=== PATIENT | male | born 1965 | race Caucasian/White ===

== ENCOUNTER 2017-02-15 21:49 | Emergency (ER) | payer OTHER ==
[~2017-02-15] VITALS: Ht 162.6 cm; Wt 75.1 kg
[2017-02-15 21:57] VITALS: TEMP 36.5; Ht 162.6 cm; Wt 75.1 kg
[2017-02-15 22:15] VITALS: O2SAT 98
[2017-02-15 23:02] LABS: BUN/CREATININE RATIO 4.7 (10-20); CALCIUM 8.9 mg/dl (8.5-10.1); CREATININE 1.1 mg/dl (0.60-1.40); POTASSIUM 4.4 mmol/L (3.5-5.1)
--- NOTE | 2017-02-16 03:58 | EMERGENCY ROOM VISIT NOTE ---
History First contact with patient: 22:05 Chief Complaint: ALCOHOL OVERDOSE Stated Complaint: ETOH Nursing Triage Summary: Pt intoxicated, found laying in yard on R side. EMS called. Pt wanted to refuse , but was recommended to come to hospital for further work-up. Per pt report he did not fall, he remembers everything that happened today. Pt states "I was walking and decided I wanted to sleep, so I laid down in the yard." Per EMS pt has been drinking since 9 AM. Reported breathalyzer level was 0.275 by police on scene. History of Present Illness The patient is a 51 year old male who presents to the Emergency Room with complaints of alcohol intoxication he was found on the ground passed out. Patient states he thinks he just lay down to go to sleep. Patient is an alcoholic. No history of DTs or seizures from not drinking. He drinks daily. Patient denies chest pain, dyspnea, abdominal pain, drug use or any other medical complaints. Review of Systems See HPI for pertinent positives & negatives. A total of 10 systems reviewed and were otherwise negative. Past Medical/Surgical History Alcoholism Social History Smoking Status: Never Smoker Alcohol Use: heavy Drug Use: none Current/Historical Medications No Active Prescriptions or Reported Meds Allergies Coded Allergies: No Known Allergies (Unverified , 04/25/11) Physical Exam Vital Signs Date Time Temp Pulse Resp B/P (MAP) Pulse Ox O2 Delivery O2 Flow Rate FiO2 02/16/17 02:00 77 02/16/17 01:00 72 18 99/61 93 Room Air 02/15/17 23:30 78 18 160/87 95 Room Air 02/15/17 22:15 98 Room Air 02/15/17 21:58 83 02/15/17 21:57 36.5 87 18 131/83 98 Room Air 02/15/17 21:57 98 Room Air Physical Exam PHYSICAL EXAM: VITALS: Vitals are noted on the nurse's note and reviewed by myself. Vital signs stable. GENERAL: Pleasant male with EtOH odor, in no acute distress, nondiaphoretic, well-developed well-nourished. The patient is visibly intoxicated. SKIN: The skin was without obvious lacerations, abrasions, or rashes. There is no tenting of the skin. Capillary reflex less than 2 seconds. HEENT: Normocephalic, atraumatic. PERRLA. EOMI. Conjunctiva with mild injection without icterus. Tympanic membranes without erythema or effusion bilaterally no hemotympanum. External auditory canals are clear. Nares patent bilaterally. No epistaxis. Oropharynx without erythema or exudate. Uvula midline. Oral mucosal moist. No lymphadenopathy. Neck is supple without cervical spine tenderness. HEART: Regular rate and rhythm without murmurs gallops or rubs. Peripheral pulses 2+. LUNGS: Clear to auscultation bilaterally without wheezes, rales or rhonchi. ABDOMEN: Positive bowel sounds x 4. Normal tympanic percussion. Soft, nontender, without masses or organomegaly. MUSCULOSKELETAL: Gross motor function of the upper and lower extremities intact. The patient has a staggering gait. NEUROLOGIC: The patient is visibly intoxicated. Once they were more sober they were alert and oriented to person place and time. Medical Decision & Procedures Laboratory Results 02/15/17 22:30 Test 02/15/17 22:30 Anion Gap 4.0 mmol/L (3-11) Est Creatinine Clear Calc Drug Dose 72.9 ml/min Estimated GFR () 89.0 Estimated GFR (Non- 76.8 BUN/Creatinine Ratio 4.7 (10-20) Calcium Level 8.9 mg/dl (8.5-10.1) Ethyl Alcohol mg/dL 349.0 mg/dl (0-3) ED Course Prior records/ancillary studies reviewed. Triage Nursing notes reviewed. Additional history obtained from nursing The patient's history was concerning for altered mental status and a possible alcohol overdose. Differential diagnosis: Etiologies such as alcohol intoxication, toxicologic, infection, hypoglycemia, electrolyte abnormalities, cardiac sources, intracerebral event, neurologic, as well as others were entertained. Physical examination: As above. The patient is clinically intoxicated. no trauma noted. ER treatment provided: Monitoring Aspiration precautions The patient was frequently reassessed. Diagnostic interpretation by me: Cardiac monitoring did not reveal any evidence of dysrhythmia. The labs revealed no worrisome electrolyte abnormality the patient's blood alcohol level was 349 mg/dL. Imaging studies: Negative head CT per radiology The patient's history was reviewed once they were more coherent and their intoxication cleared. The patient states they have been in good health recently and had no medical complaints. The patient admitted to consuming alcohol. No additional concerning findings were noted. The patient complained of no symptoms to suggest assault. This appears to be consistent with an overdose of alcohol and a known alcoholic. Patient does not want rehabilitation. He was counseled on alcoholism. All questions are answered. By the evaluation outlined above emergent etiologies such as trauma, infection, hypoglycemia, electrolyte abnormalities, cardiac sources, intracerebral event, neurologic,as well as others were deemed relatively unlikely. The patient was informed about the findings as listed above. The patient was counseled on the dangers of excessive alcohol use. I gave my usual and customary discussion regarding this issue. All questions were answered and the patient was pleased with the treatment. Return instructions were outlined and the patient was discharged in stable condition once their mental status improved and a safe destination was confirmed. Outpatient prescription management: None Referral: The patient was referred back to their primary care physician for follow-up in 2 to 3 days for a recheck of their current condition. Medical Decision As above Impression Primary Impression: Alcohol abuse Departure Information Dispostion Home / Self-Care Condition GOOD Prescriptions No Active Prescriptions or Reported Meds Referrals No Doctor, Assigned (PCP) Patient Instructions My [facility] Additional Instructions Keep well-hydrated. Tylenol every 6 hours as needed for pain (Maximum 3000 mg Tylenol in 24 hr period). Follow up with family doctor in 2-3 days. No driving for the next 24 hours. Recommend no alcohol for the next 48 hours and avoid binge drinking in the future. Return to ER sooner for chest pain, abdominal pain, worsening signs or symptoms or as needed.
[2017-02-16 04:19] VITALS: BP 117/77; PULSE 88; O2SAT 95
--- NOTE | 2017-02-16 07:08 | DIAGNOSTIC IMAGING REPORT ---
CT SCAN OF THE BRAIN WITHOUT IV CONTRAST CLINICAL HISTORY: Intoxication. Change in mental status. COMPARISON STUDY: CT of the brain dated 04/25/2011. TECHNIQUE: Unenhanced axial CT scan of the brain is performed from the vertex to the skull base. CT DOSE: 614.27 mGy.cm FINDINGS: Brain parenchyma: There are age advanced involutional changes noting minimal subcortical and periventricular microangiopathic change. There is no hemorrhage, mass effect, or evidence of acute territorial ischemia by CT criteria. Dunlap-white matter is preserved. No extra-axial fluid collection is seen. Ventricles, sulci, cisterns: Prominent secondary to involutional change. Intracranial vasculature: There is mild atherosclerotic calcification of the cavernous carotid and vertebral arteries. Calvarium: There is no depressed calvarial fracture. Sinuses and mastoids: Mild mucosal thickening is seen in the left maxillary antrum. The remaining visualized paranasal sinuses are clear. The mastoid air cells are well pneumatized. Orbits: The bony orbits are grossly intact. There is an banding of the left ocular globe. There are bilateral ocular lens implants. IMPRESSION: There is no hemorrhage, mass effect, or evidence of acute territorial ischemia by CT criteria. Electronically signed by: Josh Salinas M.D. 02/16/2017 7:06 AM Dictated Date/Time: 02/16/2017 7:04 AM
[2017-05-15] MEDS ORDERED: THM100 PO (14:02)
[2017-05-15] MEDS ORDERED: FLV1 PO (14:02)
[2017-05-15] MEDS ORDERED: CTP1 PO (14:02)
== END 2017-02-16 04:19 | disposition home or self-care (01) ==
LOC: EDBD 21:49 → C.EDB 21:50
DX: F10.129 Alcohol abuse with intoxication, unspecified (principal); Y90.8 Blood alcohol level of 240 mg/100 ml or more

== ENCOUNTER 2017-05-09 17:50 | Inpatient (IN) | payer OTHER ==
[~2017-05-09] VITALS: Ht 165.1 cm; Wt 73.0 kg
[2017-05-09] MEDS ORDERED: ASPI325T39 PO (18:17)
--- NOTE | 2017-05-09 18:27 | EMERGENCY ROOM VISIT NOTE ---
History Report prepared by Sue: Prabhu Devine Under the Supervision of: Hue JadeO. First contact with patient: 17:58 Chief Complaint: SEIZURE Stated Complaint: SEIZURE History of Present Illness The patient is a 51 year old male who presents to the Emergency Room with complaints of a resolved seizure that occurred prior to arrival. The patient states that he was with a friend, and they called EMS because the patient was having a seizure. He reports that he currently has a mild headache. The patient notes that the last time he consume alcohol was yesterday, and he typically drink three to four beers every other day. He states that he has a history of astigmatism. The patient reports that he did not know where he was when he woke up from his seizure. He notes that he broke his finger. The patient denies falling, trauma, vision changes, biting tongue, neck pain, back pain, chest pain , abdominal pain, recent cough, cold, and fever. EMS notes the patient was incontinent of stool and was diaphoretic. Source of History: patient, EMS Onset: prior to arrival Position: other (global) Quality: other (seizure) Timing: resolved Associated Symptoms: + headache, + diaphoresis, No fevers, No cough, No neck pain, No chest pain, No abdominal pain, No back pain Note: Associated symptoms: incontinent of stool Denies: falling, trauma, vision changes, biting tongue, cold Review of Systems See HPI for pertinent positives & negatives. A total of 10 systems reviewed and were otherwise negative. Past Medical & Surgical Medical Problems: (1) Alcohol abuse (2) Renal calculi Surgical Problems: (1) S/P lens implant Family History Patient reports no known family medical history. Social History Smoking Status: Never Smoker Alcohol Use: heavy Drug Use: none Allergies Coded Allergies: No Known Allergies (Unverified , 05/09/17) Physical Exam Vital Signs Date Time Temp Pulse Resp B/P (MAP) Pulse Ox O2 Delivery O2 Flow Rate FiO2 05/09/17 19:36 90 18 158/76 97 Room Air 05/09/17 18:24 97 Room Air 05/09/17 18:24 97 Room Air 05/09/17 18:02 36.9 106 20 159/98 96 Room Air 05/09/17 17:59 114 Physical Exam GENERAL: alert, well appearing, well nourished, no distress, non-toxic EYE EXAM: normal conjunctiva, bilateral anisocoria, conjugate gaze, no contusion to tongue, spontaneous nystagmus. OROPHARYNX: no exudate, no erythema, lips, buccal mucosa, and tongue normal and mucous membranes are moist NECK: supple, no nuchal rigidity, no adenopathy, non-tender LUNGS: Clear to auscultation. Normal chest wall mechanics HEART: no murmurs, S1 normal and S2 normal ABDOMEN: abdomen soft, non-tender, normo-active bowel sounds, no masses, no rebound or guarding. BACK: Back is symmetrical on inspection and there is no deformity, no midline tenderness, no CVA tenderness. SKIN: no rashes and no bruising UPPER EXTREMITIES: upper extremities are grossly normal. LOWER EXTREMITIES: No pitting edema. NEURO EXAM: Normal sensorium, cranial nerves II-XII grossly intact, normal speech, no gross weakness of arms, no gross weakness of legs. Medical Decision & Procedures ER Provider Diagnostic Interpretation: Radiology results have been interpreted by the radiologist and reviewed by me. HEAD WITHOUT CONTRAST (CT) CT DOSE: 1021.63 mGy.cm HISTORY: Mental status change seizure, fall TECHNIQUE: Multiaxial CT images of the head were performed without the use of intravenous contrast. A dose lowering technique was utilized adhering to the principles of ALARA. Comparison: 02/15/2017 Findings: The paranasal sinuses and mastoid air cells are clear. The calvarium and skull base are intact. The ventricles and sulci are within normal limits. There is no mass, hematoma, midline shift, or acute infarct. Possible subacute infarction in the region of the right and to lesser extent left occipital lobes. No evidence for acute intracranial hemorrhage. Impression: Potential subacute infarcts of the right and to lesser extent left occipital lobes. No acute intracranial hemorrhage. The above report was generated using voice recognition software. It may contain grammatical, syntax or spelling errors. Electronically signed by: Faisal Abebe M.D. 05/09/2017 6:47 PM Dictated Date/Time: 05/09/2017 6:44 PM CHEST ONE VIEW PORTABLE CLINICAL HISTORY: fall, seizure dyspnea COMPARISON STUDY: No previous studies for comparison. FINDINGS: The bones soft tissues and hemidiaphragms are normal. The cardiomediastinal silhouette is normal. The lungs are clear. The pulmonary vasculature is normal. IMPRESSION: Negative chest. The above report was generated using voice recognition software. It may contain grammatical, syntax or spelling errors. Electronically signed by: Faisal Abebe M.D. 05/09/2017 6:25 PM Dictated Date/Time: 05/09/2017 6:25 PM CERVICAL SPINE W/O CT DOSE: HISTORY: Trauma. Mental status change. fall TECHNIQUE: Multiaxial CT images of the cervical spine were performed and reformatted in the sagittal and coronal plane without the use of contrast. A dose lowering technique was utilized adhering to the principles of ALARA. COMPARISON: None. FINDINGS: No fractures. No subluxation. Prevertebral soft tissues and the C1-C2 interval are intact. No pneumothorax. Mild/moderate degenerative disc change C5-C7. Moderate degenerative change posterior and lateral elements. IMPRESSION: Moderate degenerative change. No acute process. The above report was generated using voice recognition software. It may contain grammatical, syntax or spelling errors. Electronically signed by: Faisal Abebe M.D. 05/09/2017 6:49 PM Dictated Date/Time: 05/09/2017 6:47 PM Laboratory Results Test 05/09/17 18:24 05/09/17 18:29 05/09/17 18:39 05/09/17 19:33 Ethyl Alcohol mg/dL < 3.0 mg/dl (0-3) Prothrombin Time 11.3 SECONDS (9.0-12.0) Prothromb Time International Ratio 1.1 (0.9-1.1) Activated Partial Thromboplast Time 26.0 SECONDS (21.0-31.0) Partial Thromboplastin Ratio 1.0 Direct Bilirubin 0.7 mg/dl (0-0.2) Ammonia 45.0 umol/L (11-32) Troponin I < 0.015 ng/ml (0-0.045) Thyroid Stimulating Hormone (TSH) 1.370 uIu/ml (0.300-4.500) Hepatitis C Antibody Screen NEG (NEG) Platelet Estimate DECREASED Red Blood Cell Morphology Unremarkable Estimated Average Glucose 103 mg/dl Hemoglobin A1c 5.2 % (4.5-5.6) Laboratory results per my review. Medications Administered Medications (Trade) Dose Ordered Sig/Ana Route Start Time Stop Time Status Last Admin Dose Admin Sodium Chloride 1,000 ml @ 999 mls/hr Q1H1M STAT IV 05/09/17 19:20 05/09/17 20:20 DC 05/09/17 19:30 999 MLS/HR Magnesium Sulfate (Magnesium Sulfate) 2 gm NOW STAT IV 05/09/17 19:21 05/09/17 19:22 DC 05/09/17 19:30 2 GM Aspirin/Aluminum/ Magnesium/Ca Carb (Ascriptin Tab) 325 mg NOW STAT PO 05/09/17 19:37 05/09/17 19:39 DC 05/09/17 20:26 325 MG Multivitamins 10 ml/Thiamine HCl 100 mg/Folic Acid 1 mg/Sodium Chloride 1,011.2 ml @ 500 mls/ hr Q2H2M ONCE IV 05/09/17 20:00 05/09/17 22:01 DC 05/09/17 20:37 500 MLS/HR ECG Indication: other (seizure) Rate (beats per minute): 97 Rhythm: normal sinus Findings: Q waves (Leads V1 and V2), no acute ischemic change, other (Normal axis and intervals) ED Course 1801: The patient was evaluated in room C01B. A complete history and physical exam was performed. 1919: Ordered Sodium Chloride 1000 ml @ 999 mls/hr IV 1920: Ordered Magnesium Sulfate 2gm IV 1934: Upon reevaluation, the patient is resting, feeling well, and watching TV. I discussed the findings and the treatment plan with the patient. He expresses agreement and understanding. 1936: Ordered Aspirin/Aluminum/Magnesium/Ca Carb 325mg PO 1947: I discussed the patient's case with Dr[facility] Nunes, [facility]. The patient will be evaluated for further treatment. Medical Decision Differential diagnosis includes etiologies such as infection, hypoglycemia, electrolyte abnormalities, cardiac sources, intracerebral event, trauma, toxicologic, neurologic, as well as others were entertained. Pt at risk for seizures due to etoh abuse, however CT showed subacute infarcts. Pt denies any prior hx. No evidence of trauma. No evidence of additional infectious etiology. Hyponatremia likely from etoh also. Mild elevation of ammonia but pt not encephalopathic. Elevated LFT's likely from Etoh also. No focal neuro deficits. Pt given ASA. Asked medicine to evaluate further. No recurrent seizures here and no evidence of acute alcohol withdrawal or DT's. Consults Time Called: 1938 Consulting Physician: Dr. Nunes [facility] Returned Call: 1947 I discussed the patient's case with Dr. Nunes [facility]. The patient will be evaluated for further treatment. Impression Primary Impression: Seizure Additional Impressions: Alcohol abuse CVA (cerebral vascular accident) Abnormal LFTs (liver function tests) Hyponatremia Scribe Attestation The scribe's documentation has been prepared under my direction and personally reviewed by me in its entirety. I confirm that the note above accurately reflects all work, treatment, procedures, and medical decision making performed by me. Departure Information Dispostion Home / Self-Care Referrals Faisal Laboy M.D. (PCP) Patient Instructions My [facility] Problem Qualifiers Additional Impressions: CVA (cerebral vascular accident) CVA mechanism: unspecified Qualified Codes: I63.9 - Cerebral infarction, unspecified
--- NOTE | 2017-05-09 18:48 | DIAGNOSTIC IMAGING REPORT ---
HEAD WITHOUT CONTRAST (CT) CT DOSE: 1021.63 mGy.cm HISTORY: Mental status change seizure, fall TECHNIQUE: Multiaxial CT images of the head were performed without the use of intravenous contrast. A dose lowering technique was utilized adhering to the principles of ALARA. Comparison: 02/15/2017 Findings: The paranasal sinuses and mastoid air cells are clear. The calvarium and skull base are intact. The ventricles and sulci are within normal limits. There is no mass, hematoma, midline shift, or acute infarct. Possible subacute infarction in the region of the right and to lesser extent left occipital lobes. No evidence for acute intracranial hemorrhage. Impression: Potential subacute infarcts of the right and to lesser extent left occipital lobes. No acute intracranial hemorrhage. The above report was generated using voice recognition software. It may contain grammatical, syntax or spelling errors. Electronically signed by: Faisal Abebe M.D. 05/09/2017 6:47 PM Dictated Date/Time: 05/09/2017 6:44 PM
--- NOTE | 2017-05-09 18:50 | DIAGNOSTIC IMAGING REPORT ---
CERVICAL SPINE W/O CT DOSE: HISTORY: Trauma. Mental status change. fall TECHNIQUE: Multiaxial CT images of the cervical spine were performed and reformatted in the sagittal and coronal plane without the use of contrast. A dose lowering technique was utilized adhering to the principles of ALARA. COMPARISON: None. FINDINGS: No fractures. No subluxation. Prevertebral soft tissues and the C1-C2 interval are intact. No pneumothorax. Mild/moderate degenerative disc change C5-C7. Moderate degenerative change posterior and lateral elements. IMPRESSION: Moderate degenerative change. No acute process. The above report was generated using voice recognition software. It may contain grammatical, syntax or spelling errors. Electronically signed by: Faisal Abebe M.D. 05/09/2017 6:49 PM Dictated Date/Time: 05/09/2017 6:47 PM
[2017-05-09 19:01] LABS: ALT/SGPT 195 U/L (12-78); BLOOD UREA NITROGEN 9 mg/dl (7-18); BUN/CREATININE RATIO 8.5 (10-20); CARBON DIOXIDE 22 mmol/L (21-32); CHLORIDE 94 mmol/L (98-107); GLUCOSE 145 mg/dl (70-99); MAGNESIUM 1.5 mg/dl (1.8-2.4); POTASSIUM 3.6 mmol/L (3.5-5.1); SODIUM 130 mmol/L (136-145)
[2017-05-09 19:05] LABS: INR 1.1 (0.9-1.1); PROTHROMBIN TIME (PATIENT) 11.3 SECONDS (9.0-12.0)
[2017-05-09 19:15] LABS: ALKALINE PHOSPHATASE 119 U/L (45-117); AST/SGOT 228 U/L (15-37); PHOSPHORUS 2.1 mg/dl (2.5-4.9)
[2017-05-09] MEDS ORDERED: SODIUM CHLORIDE 0.9% 1000ML 1,000 ML IV STA (19:20)
[2017-05-09] MEDS ORDERED: MAGNESIUM SULFATE 1GM / D5W 1 GM BAG IV STA (19:21)
[2017-05-09] MEDS ORDERED: ASPIRIN/ALUM/MAGNES/CAL CARB 325 MG TAB PO STA (19:37)
[2017-05-09] MEDS ORDERED: MULTI-VITAMIN INFUSION INJ 10 ML, THIAMINE HCL INJ 100 MG, FoLIC ACID INJ 1 MG in SODIU... IV ONE (20:00)
[2017-05-09 20:13] LABS: BASO % 0.3 %; BASO ABS # 0.02 K/uL (0-0.2); COMPLETE YES; EOS % 0.1 %; HEMATOCRIT 40.3 % (42-52); IG% 0.3 %; LYMPH % 7.2 %; LYMPH ABS # 0.52 K/uL (1.2-3.4); MEAN CELL VOLUME 90.4 fL (80-100); MEAN CORPUSCULAR HEMOGLOBIN 31.8 pg (25-34); MEAN CORPUSCULAR HGB CONC 35.2 g/dl (32-36); MEAN PLATELET VOLUME 10.9 fL (7.4-10.4); MONO % 10.8 %; NEUT % 81.3 %; PLATELET COUNT 81 K/uL (130-400); PLT ESTIMATE DECREASED; RED BLOOD COUNT 4.46 M/uL (4.7-6.1)
[2017-05-09] MEDS ORDERED: ENOXAPARIN 40 MG/0.4 ML SYR SC SCH (20:45)
[2017-05-09] MEDS ORDERED: ONDANSETRON INJ 2 MG/ML 2 ML VIAL IV PRN (20:45)
[2017-05-09] MEDS ORDERED: ACETAMINOPHEN 325 MG TAB PO PRN (20:45)
[2017-05-09] MEDS ORDERED: PHARMACIST DISCHARGE MED REC CONSULT PRN (20:45)
[2017-05-09] MEDS ORDERED: GABAPENTIN 600 MG TAB PO STA (21:28)
[2017-05-09 21:49] VITALS: BP 166/99; PULSE 103; TEMP 37; O2SAT 97; Ht 165.1 cm; Wt 73.0 kg
[2017-05-09] MEDS ORDERED: LORAZEPAM 2 MG/ML 1 ML VIAL IV PRN (22:45)
[2017-05-09] MEDS ORDERED: LORAZEPAM INJ 1 MG in SYRINGE 0.5 ML IV PRN (22:45)
--- NOTE | 2017-05-09 23:09 | History and Physical ---
History & Physical Date & Time of Service: May 09, 2017 ~ 20:15 Chief Complaint: Possible Seizure Primary Care Physician: Faisal Laboy M.D. History of Present Illness 51 year old male who presents to the ER with seizure like activity. History is limited from the patient. With the patient's permission, I spoke with his landlord, Daniel Tavares who provided some information. Daniel was not present with the patient during the seizure like activity but reported to me what was passed onto him. Patient sitting in a chair drinking a beer when his eyes rolled back in his head and his head went backwards. His whole body became stiff and his hands clenched crushing the can that was in his hand. It is unknown how long this episode lasted. EMS was called and it was reported that the patient was confused. There was no loss of bowel or bladder control. No vomiting or tongues biting. Patient reports he currently feels well with the exception of a mild frontal headache. Patient reports he only drinks a 6 pack of beer every 2 days however Daniel reported to me that intake is much higher than that. Patient reports his last drink was last night around 9pm. He denies alcohol withdrawal or seizures in the past. He reports he has been feeling well recently. No chest pain, shortness of breath, or palpitations. He denies visual changes, unilateral weakness, numbness or tingling. No slurred speech or difficulty swallowing. He denies abdominal pain, nausea, vomiting, or diarrhea. No fever or chills. He denies urinary symptoms. In the ED, patient's head CT is showing possible BL occipital lobe subacute infarcts. Labs show a mild hyponatremia, elevated LFTs, hypomagnesemia, and thrombocytopenia. Patient was given ASA, IV Mg+ replacement, and banana bag, Past Medical/Surgical History Medical Problems: (1) Alcohol abuse Status: Chronic (2) Renal calculi Status: Chronic Surgical Problems: (1) S/P lens implant Status: Chronic Family History Patient reports no known family medical history. Social History Smoking Status: Never Smoker Smokeless Tobacco Use: 1 can/week Alcohol Use: patient reports 6 pack/2 days however landlord reports his intake is much higher Housing status: lives alone Multi-Drug Resistant Organisms History of MDRO: No Allergies Coded Allergies: No Known Allergies (Unverified , 05/09/17) Review of Systems ROS per HPI, all other systems reviewed and negative Physical Exam Vital Signs Date Time Temp Pulse Resp B/P (MAP) Pulse Ox O2 Delivery O2 Flow Rate FiO2 05/09/17 21:49 37.0 103 18 166/99 97 Room Air 05/09/17 20:56 91 18 134/89 97 Room Air 05/09/17 19:36 90 18 158/76 97 Room Air 05/09/17 18:24 97 Room Air 05/09/17 18:24 97 Room Air 05/09/17 18:02 36.9 106 20 159/98 96 Room Air 05/09/17 17:59 114 General Appearance: no apparent distress Head: normocephalic Eyes: + pertinent finding (pupils non reactive to light secondary to prior lens surgery; involuntary eye movement noted - patient reports chronic since prior eye surgery) ENT: hearing grossly normal Neck: supple, no JVD Respiratory/Chest: lungs clear, normal breath sounds, no respiratory distress Cardiovascular: regular rate, rhythm, no edema, normal peripheral pulses Abdomen/GI: normal bowel sounds, non tender, soft Extremities/Musculoskelatal: normal inspection, no calf tenderness Neurologic/Psych: alert, oriented x 3, + pertinent finding (mild tremor noted; also has some difficulty following instructions to preform neuro exam, however no gross focal deficits noted) Skin: normal color, warm/dry Diagnostics Laboratory Results Results Past 24 Hours Test 05/09/17 18:24 05/09/17 18:29 05/09/17 18:39 05/09/17 19:33 Range/Units Ethyl Alcohol mg/dL < 3.0 0-3 mg/dl Prothrombin Time 11.3 9.0-12.0 SECONDS Prothromb Time International Ratio 1.1 0.9-1.1 Activated Partial Thromboplast Time 26.0 21.0-31.0 SECONDS Partial Thromboplastin Ratio 1.0 Sodium Level 130 136-145 mmol/L Potassium Level 3.6 3.5-5.1 mmol/L Chloride Level 94 98-107 mmol/L Carbon Dioxide Level 22 21-32 mmol/L Anion Gap 14.0 3-11 mmol/L Blood Urea Nitrogen 9 7-18 mg/dl Creatinine 1.10 0.60-1.40 mg/dl Est Creatinine Clear Calc Drug Dose 68.3 ml/min Estimated GFR () 89.0 Estimated GFR (Non- 76.8 BUN/Creatinine Ratio 8.5 10-20 Random Glucose 145 70-99 mg/dl Calcium Level 10.0 8.5-10.1 mg/dl Phosphorus Level 2.1 2.5-4.9 mg/dl Magnesium Level 1.5 1.8-2.4 mg/dl Total Bilirubin 1.5 0.2-1 mg/dl Direct Bilirubin 0.7 0-0.2 mg/dl Aspartate Amino Transf (AST/SGOT) 228 15-37 U/L Alanine Aminotransferase (ALT/SGPT) 195 12-78 U/L Alkaline Phosphatase 119 45-117 U/L Ammonia 45.0 11-32 umol/L Troponin I < 0.015 0-0.045 ng/ml Total Protein 7.6 6.4-8.2 gm/dl Albumin 3.6 3.4-5.0 gm/dl Thyroid Stimulating Hormone (TSH) 1.370 0.300-4.500 uIu/ml White Blood Count 7.20 4.8-10.8 K/uL Red Blood Count 4.46 4.7-6.1 M/uL Hemoglobin 14.2 14.0-18.0 g/dL Hematocrit 40.3 42-52 % Mean Corpuscular Volume 90.4 80-100 fL Mean Corpuscular Hemoglobin 31.8 25-34 pg Mean Corpuscular Hemoglobin Concent 35.2 32-36 g/dl Platelet Count 81 130-400 K/uL Mean Platelet Volume 10.9 7.4-10.4 fL Neutrophils (%) (Auto) 81.3 % Lymphocytes (%) (Auto) 7.2 % Monocytes (%) (Auto) 10.8 % Eosinophils (%) (Auto) 0.1 % Basophils (%) (Auto) 0.3 % Neutrophils # (Auto) 5.85 1.4-6.5 K/uL Lymphocytes # (Auto) 0.52 1.2-3.4 K/uL Monocytes # (Auto) 0.78 0.11-0.59 K/uL Eosinophils # (Auto) 0.01 0-0.5 K/uL Basophils # (Auto) 0.02 0-0.2 K/uL RDW Standard Deviation 44.4 36.4-46.3 fL RDW Coefficient of Variation 13.4 11.5-14.5 % Immature Granulocyte % (Auto) 0.3 % Immature Granulocyte # (Auto) 0.02 0.00-0.02 K/uL Platelet Estimate DECREASED Red Blood Cell Morphology Unremarkable Diagnostic Radiology CT Head Impression: Potential subacute infarcts of the right and to lesser extent left occipital lobes. No acute intracranial hemorrhage. CXR IMPRESSION: Negative chest. CT C SPINE IMPRESSION: Moderate degenerative change. No acute process. Impression Assessment and Plan POSSIBLE SEIZURE ALCOHOL ABUSE - admit to tele - history difficult to obtain from patient; however per patient's landlord who spoke to the person who witness the patient's event - while he drinking a beer, his eyes rolled back into, his head tilted back, and he became stiff all over and was subsequently confused - unknown for how long episode lasted - patient has history of heavy alcohol abuse and suspect this contributed to the possible seizure - case discussed with Dr. Meehan - will start patient on Gabapentin ETOH withdrawal protocol which can be utilized as an antiepileptic for now; no need to add Keppra - EEG, brain MRI, seizure precautions - daily banana bag, PRN Ativan per protocol ? SUBACUTE BL OCCIPITAL INFARCTS - noted on CT head - no gross focal deficits notes - brain MRI/MRA, neck MRA, echo - s/p ASA in the ED, however will not continue due to thrombocytopenia - will not start statin due to elevated LFTs ELEVATED LFTS, THROMBOCYTOPENIA - suspect ETOH cirrhosis - check liver US - GI consult - platelets 81, no signs of bleeding HYPOMAGNESEMIA, HYPOPHOSPHATEMIA - replace, follow up labs in AM DVT PROPHYLAXIS - SCDs due to thrombocytopenia DISPO - In my clinical judgment this beneficiary meets acute admission criteria, established by [facility], that includes being hospitalized through two midnights. Advanced Directives Existing Living Will: No Existing Power of Auto Crane Driver: No VTE Prophylaxis VTE Risk Assessment Done? Y/N: Yes Risk Level: Moderate Note ATTENDING ADDENDUM Record reviewed. Patient interviewed and examined. Care coordinated with EDUARDO Barba. Please refer to her documentation for patient's history. Briefly, 51 YO male with history of alcohol consumption (exact amount uncertain ) with apparent seizure. No prior history of seizures. No trauma. EXAM: General- no distress VS- as noted HEENT- anicteric Neck- supple Lungs- clear Heart- RRR Abdomen- + BS, soft, nontender Extremities- no pretibial edema or calf tenderness Neuro- alert, oriented; left esotropia (chronic); nystagmus (chronic); no facial palsy; motor strength upper and lower extremities intact; plantar reflexes downgoing DATA: Lab studies as noted. Head CT- ? subacute bilateral occipital strokes ASSESSMENT AND PLAN: Apparent new onset seizure, ? due to alcohol withdrawal. ? subacute ischemic strokes per CT- check MRI. Elevated LFT's- probably due to alcoholic hepatitis. Check US. Suspected alcohol abuse- thiamine, MVI, gabapentin, counseling. Please refer to DEBORAH Escalante's documentation for discussion of other issues. Fabian Nunes MD .
[2017-05-10] VITALS (11 sets, daily range): BP systolic 123–161; BP diastolic 69–93; PULSE 73–99; TEMP 36.8–37.3; O2SAT 95–98
[2017-05-10] MEDS: SODIUM CHLORIDE 0.9% 1000ML 1,000 ML IV SCH ×3 (01:38→15:10)
[2017-05-10] MEDS ORDERED: GADAVIST IV PRN (02:45)
[2017-05-10] MEDS: GABAPENTIN 600MG Q6H DOSE PO SCH ×2 (04:18→08:36)
[2017-05-10] MEDS ORDERED: PERFLUTREN LIPID MICROSPHERE (DEFINITY) IV ONE (07:03)
--- NOTE | 2017-05-10 07:06 | DIAGNOSTIC IMAGING REPORT ---
MRA HEAD WITHOUT CONTRAST CLINICAL HISTORY: 51 years-old Male presenting with possible stroke, seizure on Monday, no prior seizure history, no recent head injury. TECHNIQUE: MR angiography of the head was performed without the use of intravenous contrast using 3-D [id number] technique. 3-D volumetric and/or maximum intensity projection (MIP) images were subsequently reconstructed for review. IV contrast: None.. COMPARISON: None. FINDINGS: Evaluation is somewhat limited due to motion artifact, decreasing diagnostic sensitivity of the exam. Anterior circulation demonstrates mild apparent narrowing of flow related enhancement in the paraclinoid segment of the right internal carotid artery, although this may be artifactual secondary to motion artifact. The intracranial portion of the left ICA is normal. Bilateral anterior middle cerebral arteries patent. Anterior communicating artery patent. Posterior circulation demonstrates a left dominant vertebral artery which appears to fully form the basilar artery. The distal right vertebral artery is not apparent, although this may terminate as the right posterior inferior cerebellar artery. The basilar, bilateral superior cerebellar, and posterior cerebral arteries are patent. Bilateral posterior communicating arteries patent. Aplastic or hypoplastic P1 segments bilaterally. No gross evidence of aneurysm allowing for motion degradation. IMPRESSION: 1. Degraded image quality secondary to motion artifact decreasing diagnostic sensitivity. 2. Given the left dominant vertebral artery anatomic pattern, the right vertebral artery most likely terminates as the right PICA. Please see separately dictated MRA neck. 3. Mild apparent stenosis of the paraclinoid right ICA. 4. No other significant stenosis, aneurysm, or occlusion. Electronically signed by: Yonas Lyn M.D. 05/10/2017 7:04 AM Dictated Date/Time: 05/10/2017 6:56 AM
--- NOTE | 2017-05-10 07:09 | DIAGNOSTIC IMAGING REPORT ---
MR ANGIOGRAM OF THE NECK COMBO CLINICAL HISTORY: Strokelike symptoms. COMPARISON STUDY: No priors. TECHNIQUE: Axial 3-D [id number] MR angiography of the neck is performed. Subsequently, following the IV administration of 7 cc of Gadavist. Coronal MR angiogram of the neck was performed to corroborate the findings. 3-D reformats are created and assessed. All measurements were calculated based on NASCET criteria. The examination is compromised by motion artifact. FINDINGS: Visualized portions of the thoracic aorta are normal in caliber. The aortic arch demonstrates 4-vessel variant anatomy. The left vertebral artery arises directly from the arch. The subclavian arteries are widely patent bilaterally. The right common carotid artery is widely patent, as are the right internal and external carotid arteries. The left common carotid artery is widely patent, as are the left internal and external carotid arteries. Moderate atherosclerotic irregularity suggested in the carotid bulbs. The vertebral arteries are widely patent. The left vertebral artery is dominant in the right vertebral artery is diminutive. The visualized intracranial vessels at the skull base appear patent. IMPRESSION: Unremarkable MR angiogram of the neck noting a motion compromised examination. Electronically signed by: Josh Salinas M.D. 05/10/2017 7:07 AM Dictated Date/Time: 05/10/2017 7:04 AM
--- NOTE | 2017-05-10 07:14 | DIAGNOSTIC IMAGING REPORT ---
(LIVER) ABDOMEN LIMITED CLINICAL HISTORY: elevated LFTs abnormal liver function tests TECHNIQUE: Ultrasound COMPARISON STUDY: None FINDINGS: Fatty infiltration of liver. Gallbladder is negative for distention. There are no shadowing gallstones. Trace amount of gallbladder sludge. Common bile duct 3 mm. No evidence for renal hydronephrosis. Poor visibility of the pancreas due to overlying bowel content. IMPRESSION: Fatty infiltration of liver. Normal caliber bile ducts. Trace amount of gallbladder sludge. The above report was generated using voice recognition software. It may contain grammatical, syntax or spelling errors. Electronically signed by: Faisal Abebe M.D. 05/10/2017 7:13 AM Dictated Date/Time: 05/10/2017 7:09 AM
--- NOTE | 2017-05-10 07:26 | DIAGNOSTIC IMAGING REPORT ---
BRAIN COMBO FOR SEIZURE CLINICAL HISTORY: Stroke mental status change COMPARISON STUDY: CT same date TECHNIQUE: Utilizing a 1.5 Anny magnet and dedicated coil, multiplanar, multiecho imaging of the brain was performed pre and postcontrast administration. IV administration of 12.5 mL of Gadavist contrast was uneventful. Thin cut coronal T2 imaging was performed according to seizure protocol. FINDINGS: Diffusion-weighted images are considered negative for an acute infarct. CT findings of the occipital lobes appear to be secondary to atrophic change of mild patient motion. Generalized atrophy of the cerebral hemispheres. Mild chronic small vessel change. No abnormal postcontrast enhancement. Sella and parasellar regions are unremarkable. IMPRESSION: 1. No evidence for acute ischemic insult. 2. CT findings. Be secondary to a combination of atrophy and patient motion. 3. Chronic findings of small vessel change and atrophy The above report was generated using voice recognition software. It may contain grammatical, syntax or spelling errors. Electronically signed by: Faisal Abebe M.D. 05/10/2017 7:25 AM Dictated Date/Time: 05/10/2017 7:19 AM
[2017-05-10 07:29] LABS: ESTIMATED AVERAGE GLUCOSE 103 mg/dl; HA1C FLAG Normal (Normal)
[2017-05-10 07:45] LABS: HEMATOCRIT 37.2 % (42-52); MEAN CORPUSCULAR HEMOGLOBIN 32.5 pg (25-34); MEAN CORPUSCULAR HGB CONC 34.9 g/dl (32-36); WHITE BLOOD COUNT 4.77 K/uL (4.8-10.8)
[2017-05-10 08:09] LABS: MEAN PLATELET VOLUME 10.4 fL (7.4-10.4); PLATELET COUNT 76 K/uL (130-400)
[2017-05-10 08:14] LABS: BASO % 0.4 %; BASO ABS # 0.02 K/uL (0-0.2); COMPLETE YES; EOS % 1.3 %; IG% 0.2 %; LYMPH ABS # 1.05 K/uL (1.2-3.4); MONO % 14.7 %; NEUT % 61.4 %
--- NOTE | 2017-05-10 08:27 | ECHOCARDIOGRAM REPORT ---
*NOTICE TO RECEIVING LIBERTARIAN AGENCY This information is strictly Confidential and protected under [place] law. [place] law prohibits you from making any further disclosure of this information unless further disclosure is expressly permitted by the written consent of the person to whom it pertains or is authorized by law. A general authorization for the release of medical or other information is not sufficient for this purpose. Hospital accepts no responsibility if the information is made available to any other person, INCLUDING THE PATIENT. Interpretation Summary * Name: MOY CRABTREE Study Date: 05/10/2017 06:19 AM BP: 148/93 mmHg * Patient Location: C.2T\S\S242\S\2 HR: 85 * : 1965 (M/d/yyyy) Gender: Male Height: 65 in * Age: 51 yrs Ethnicity: CA Weight: 158 lb * Ordering Physician: Charlotte Escalante * Referring Physician: Self, Referred * Performed By: Sherry Matias RDCS * * Reason For Study: STROKE * BSA: 1.8 m2 * -- Conclusions -- * The left ventricular wall motion is normal. * There is mild concentric left ventricular hypertrophy. * Left ventricular systolic function is normal. * Ejection Fraction = 55-60%. * The aortic valve is not sufficiently visualized to determined the number of cusps. The aortic valve is mildly calcified. * There is no significant aortic regurgitation. * Aortic stenosis is absent. * Grade I diastolic dysfunction, (abnormal relaxation pattern). * The interatrial septum is intact with no evidence for an atrial septal defect demonstrated with the administration of agitated saline contrast. Procedure Details * A contrast injection of Definity was performed to improve assessment of LV function. * Contrast was injected into an intravenous site in the left arm. * One vial of Definity ultrasound contrast was diluted in normal saline to a total volume of 10 ml. A total of '2' ml of solution was administered during imaging. * Lot # [id number] of Definity utilized for procedure. * Expiration date JUN 07. * The attending nurse who injected the contrast agent was MELVIN Hinkle RN. * A saline contrast injection was performed to assess for cardiac shunting. * The injection was performed through an intravenous line in the left arm. * The attending nurse who injected the saline contrast was MELVIN Hinkle RN. * A total of 20 cc of agitated saline was given. * A complete two-dimensional transthoracic echocardiogram was performed (2D, M-mode, Doppler and color flow Doppler). Left Ventricle * The left ventricle is normal in size. * There is mild concentric left ventricular hypertrophy. * Left ventricular systolic function is normal. * Ejection Fraction = 55-60%. * The left ventricular wall motion is normal. Right Ventricle * The right ventricle is normal size. * The right ventricular systolic function is normal as assessed by tricuspid annular plane systolic excursion (TAPSE) (normal >1.5 cm). Atria * The left atrial size is normal. * Right atrial size is normal. * The interatrial septum is intact with no evidence for an atrial septal defect. Mitral Valve * The mitral valve is normal. * There is no mitral valve stenosis. * Significant mitral regurgitation is absent. Tricuspid Valve * The tricuspid valve is normal. * There is no tricuspid stenosis. * Significant tricuspid regurgitation is absent. Aortic Valve * The aortic valve is not sufficiently visualized to determined the number of cusps. The aortic valve is mildly calcified. * Aortic stenosis is absent. * There is no significant aortic regurgitation. Pulmonic Valve * The pulmonary valve is not well seen, but the Doppler examination is normal without significant regurgitation or stenosis. Great Vessels * The aortic root and proximal ascending aorta are normal sized. Pericardium/Pleural * There is no pericardial effusion. Great Vessels * Normal inferior vena cava diameter and respiratory variation suggests normal central venous pressure. Left Ventricular Diastolic Function * Grade I diastolic dysfunction, (abnormal relaxation pattern). MMode 2D Measurements and Calculations IVSd 1.3 cm IVSs 1.8 cm LVIDd 4.6 cm LVIDs 3.0 cm LVPWd 1.1 cm LVPWs 1.2 cm IVS/LVPW 1.1 FS 34.9 % EDV(Teich) 97.4 ml ESV(Teich) 34.9 ml EF(Teich) 64.2 % EDV(cubed) 97.4 ml ESV(cubed) 26.9 ml EF(cubed) 72.4 % % IVS thick 43.0 % % LVPW thick 9.6 % LV mass(C)d 205.2 grams LV mass(C)dI 114.7 grams/m\S\2 LV mass(C)s 162.5 grams LV mass(C)sI 90.8 grams/m\S\2 SV(Teich) 62.5 ml SI(Teich) 34.9 ml/m\S\2 SV(cubed) 70.5 ml SI(cubed) 39.4 ml/m\S\2 Ao root diam 2.8 cm Ao root area 6.0 cm\S\2 LA dimension 3.5 cm LA/Ao 1.3 LVAd ap4 27.7 cm\S\2 LVLd ap4 7.9 cm EDV(MOD-sp4) 80.9 ml EDV(sp4-el) 83.2 ml LVAs ap4 16.5 cm\S\2 LVLs ap4 6.8 cm ESV(MOD-sp4) 35.3 ml ESV(sp4-el) 34.0 ml EF(MOD-sp4) 56.4 % EF(sp4-el) 59.1 % LVAd ap2 27.2 cm\S\2 LVLd ap2 8.0 cm EDV(MOD-sp2) 74.7 ml EDV(sp2-el) 79.1 ml LVAs ap2 16.0 cm\S\2 LVLs ap2 6.5 cm ESV(MOD-sp2) 31.6 ml ESV(sp2-el) 33.2 ml EF(MOD-sp2) 57.7 % EF(sp2-el) 58.0 % LVLd %diff 1.2 % EDV(MOD-bp) 77.4 ml LVLs %diff -4.14 % ESV(MOD-bp) 32.7 ml EF(MOD-bp) 57.7 % SV(MOD-sp4) 45.7 ml SI(MOD-sp4) 25.5 ml/m\S\2 SV(MOD-sp2) 43.1 ml SI(MOD-sp2) 24.1 ml/m\S\2 SV(MOD-bp) 44.7 ml SI(MOD-bp) 25.0 ml/m\S\2 SV(sp4-el) 49.2 ml SI(sp4-el) 27.5 ml/m\S\2 SV(sp2-el) 45.9 ml SI(sp2-el) 25.7 ml/m\S\2 Doppler Measurements and Calculations MV E max maara 58.2 cm/sec MV A max amara 80.5 cm/sec MV E/A 0.72 MV dec time 0.27 sec Ao V2 max 176.9 cm/sec Ao max PG 12.5 mmHg Ao max PG (full) 7.8 mmHg LV V1 max PG 4.7 mmHg LV V1 max 109.0 cm/sec TR max amara 193.9 cm/sec
[2017-05-10] MEDS: MULTI-VITAMIN INFUSION INJ 10 ML, THIAMINE HCL INJ 100 MG, FoLIC ACID INJ 1 MG in SODIU... IV SCH (08:35)
[2017-05-10 08:36] LABS: BUN/CREATININE RATIO 11.8 (10-20); CALCIUM 8.5 mg/dl (8.5-10.1); CHOLESTEROL/HDL RATIO 1.5; CREATININE 0.83 mg/dl (0.60-1.40); MAGNESIUM 1.8 mg/dl (1.8-2.4); PHOSPHORUS 2.8 mg/dl (2.5-4.9); POTASSIUM 3.4 mmol/L (3.5-5.1)
[2017-05-10] MEDS: POT PHOSPHATE MONOBASIC W/ SOD TAB PO SCH ×4 (08:36→20:55)
--- NOTE | 2017-05-10 09:26 | Gastrointestinal Consultation ---
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 PT was seen and evaluated, chart reviewed. Pt tells me he does not want to be here, feels well and wants to go home. He is agreeable to exam. He tells me he has been drinking a 6 pack of beer every other day for as long as he can remember. He suggests sometimes he drinks more, but he never drinks any liquor. He tells me he has been drinking this much for many years, maybe 30 years. He has never been told before that he has had elevated liver enzymes or any liver disease. He denies any family history of liver disease. He denies any family history of hemochromatosis. He tells me he has tried to stop drinking in the past alone, but this did not work. I asked him if he would be agreeable to go to rehab facility after discharge, and he said he would consider this. He moves his bowels 1-2 times daily, no black or bloody stools. Denies any upper GI symptoms. RUQ US Fatty infiltration of liver. Normal caliber bile ducts. Trace amount of gallbladder sludge. Past Medical/Surgical History Medical Problems: (1) Alcohol abuse Status: Acute Past Medical History: from chart review, pt denied any history - alcohol abuse kidney stones Past Surgical History: from chart review - pt denied any surgery S/P lens implant Family History Patient reports no known family medical history. Social History Smoking Status: Never Smoker Alcohol Use: heavy Allergies Coded Allergies: No Known Allergies (Unverified , 05/09/17) Current Medications Home Meds and Scripts Medications Dose Route/Sig Max Daily Dose Days Date Category [Reviewed 11/09/09] 11/09/09 Reported Patient States No Home Meds (Miscellaneous) . 11/09/09 Reported Review of Systems Constitutional: No fever, No chills Respiratory: No cough Cardiac: No chest pain Abdomen: No pain, No nausea, No vomiting, No diarrhea, No constipation, No GI bleeding Physical Exam Date Time Temp Pulse Resp B/P (MAP) Pulse Ox O2 Delivery O2 Flow Rate FiO2 05/10/17 08:12 36.8 87 18 135/69 (91) 95 05/10/17 08:00 98 Room Air 05/10/17 04:00 36.9 85 148/93 (111) 97 Room Air 05/10/17 04:00 98 Room Air 05/10/17 01:35 37.2 89 18 147/88 (107) 98 Room Air 05/10/17 01:30 98 Room Air 05/09/17 21:49 37.0 103 18 166/99 97 Room Air 05/09/17 20:56 91 18 134/89 97 Room Air 05/09/17 19:36 90 18 158/76 97 Room Air 05/09/17 18:24 97 Room Air 05/09/17 18:24 97 Room Air 05/09/17 18:02 36.9 106 20 159/98 96 Room Air 05/09/17 17:59 114 General Appearance: + mild distress (pt appears uncomfortable in bed) Eyes: + pertinent finding (abnormal eye movement) ENT: hearing grossly normal Neck: supple Respiratory/Chest: lungs clear, normal breath sounds Cardiovascular: regular rate, rhythm, no edema Abdomen: normal bowel sounds, non tender, soft Neurologic/Psych: alert, normal mood/affect, oriented x 3, + pertinent finding (tremor) Skin: warm/dry, no rash Laboratory Results Last 24 Hours Test 05/09/17 18:24 05/09/17 18:29 05/09/17 18:39 05/09/17 19:33 Ethyl Alcohol mg/dL < 3.0 mg/dl Prothrombin Time 11.3 SECONDS Prothromb Time International Ratio 1.1 Activated Partial Thromboplast Time 26.0 SECONDS Partial Thromboplastin Ratio 1.0 Sodium Level 130 mmol/L Potassium Level 3.6 mmol/L Chloride Level 94 mmol/L Carbon Dioxide Level 22 mmol/L Anion Gap 14.0 mmol/L Blood Urea Nitrogen 9 mg/dl Creatinine 1.10 mg/dl Est Creatinine Clear Calc Drug Dose 68.3 ml/min Estimated GFR () 89.0 Estimated GFR (Non- 76.8 BUN/Creatinine Ratio 8.5 Random Glucose 145 mg/dl Calcium Level 10.0 mg/dl Phosphorus Level 2.1 mg/dl Magnesium Level 1.5 mg/dl Total Bilirubin 1.5 mg/dl Direct Bilirubin 0.7 mg/dl Aspartate Amino Transf (AST/SGOT) 228 U/L Alanine Aminotransferase (ALT/SGPT) 195 U/L Alkaline Phosphatase 119 U/L Ammonia 45.0 umol/L Troponin I < 0.015 ng/ml Total Protein 7.6 gm/dl Albumin 3.6 gm/dl Thyroid Stimulating Hormone (TSH) 1.370 uIu/ml Hepatitis C Antibody Screen NEG White Blood Count 7.20 K/uL Red Blood Count 4.46 M/uL Hemoglobin 14.2 g/dL Hematocrit 40.3 % Mean Corpuscular Volume 90.4 fL Mean Corpuscular Hemoglobin 31.8 pg Mean Corpuscular Hemoglobin Concent 35.2 g/dl Platelet Count 81 K/uL Mean Platelet Volume 10.9 fL Neutrophils (%) (Auto) 81.3 % Lymphocytes (%) (Auto) 7.2 % Monocytes (%) (Auto) 10.8 % Eosinophils (%) (Auto) 0.1 % Basophils (%) (Auto) 0.3 % Neutrophils # (Auto) 5.85 K/uL Lymphocytes # (Auto) 0.52 K/uL Monocytes # (Auto) 0.78 K/uL Eosinophils # (Auto) 0.01 K/uL Basophils # (Auto) 0.02 K/uL RDW Standard Deviation 44.4 fL RDW Coefficient of Variation 13.4 % Immature Granulocyte % (Auto) 0.3 % Immature Granulocyte # (Auto) 0.02 K/uL Platelet Estimate DECREASED Red Blood Cell Morphology Unremarkable Estimated Average Glucose 103 mg/dl Hemoglobin A1c 5.2 % Test 05/10/17 07:30 White Blood Count 4.77 K/uL Red Blood Count 4.00 M/uL Hemoglobin 13.0 g/dL Hematocrit 37.2 % Mean Corpuscular Volume 93.0 fL Mean Corpuscular Hemoglobin 32.5 pg Mean Corpuscular Hemoglobin Concent 34.9 g/dl Platelet Count 76 K/uL Mean Platelet Volume 10.4 fL Neutrophils (%) (Auto) 61.4 % Lymphocytes (%) (Auto) 22.0 % Monocytes (%) (Auto) 14.7 % Eosinophils (%) (Auto) 1.3 % Basophils (%) (Auto) 0.4 % Neutrophils # (Auto) 2.93 K/uL Lymphocytes # (Auto) 1.05 K/uL Monocytes # (Auto) 0.70 K/uL Eosinophils # (Auto) 0.06 K/uL Basophils # (Auto) 0.02 K/uL RDW Standard Deviation 46.5 fL RDW Coefficient of Variation 13.6 % Immature Granulocyte % (Auto) 0.2 % Immature Granulocyte # (Auto) 0.01 K/uL Sodium Level 136 mmol/L Potassium Level 3.4 mmol/L Chloride Level 101 mmol/L Carbon Dioxide Level 26 mmol/L Anion Gap 9.0 mmol/L Blood Urea Nitrogen 10 mg/dl Creatinine 0.83 mg/dl Est Creatinine Clear Calc Drug Dose 90.6 ml/min Estimated GFR () 117.3 Estimated GFR (Non- 101.2 BUN/Creatinine Ratio 11.8 Random Glucose 73 mg/dl Calcium Level 8.5 mg/dl Phosphorus Level 2.8 mg/dl Magnesium Level 1.8 mg/dl Triglycerides Level 49 mg/dl Cholesterol Level 174 mg/dl HDL Cholesterol 113 mg/dl LDL Cholesterol, Calculated 51 mg/dl VLDL Cholesterol, Calculated 10 mg/dl Cholesterol/HDL Ratio 1.5 Impression Patient is a 51 year old male with about a 30 year history of ongoing ETOH abuse (pt reports a 6 pack every other day, more on special occasions) who presented through the ED following a seizure. He tells me he had about 3-4 beers the day before the seizure and has not had any ETOH in 2 days, he is on gabapentin, ativan PRN and a banana bag. GI was consulted for question of ETOH cirrhosis. Pt was alert and oriented on my exam, mildly elevated NH3 - defer treatment at this time. Imaging suggestive of fatty infiltration to the liver without evidence of mass, plts 81, INR 1.1 TB 1.5 AST 228, ALT 195, ALK 119. He has never had a serologic evaluation of elevated LFTs before and denies any family history of liver disease - suspect ETOH induced liver injury. Plan ETOH withdrawal protocol Less than 2G Tylenol daily Low NA diet ETOH abstinence Suggest outpatient rehab to aid in ETOH abstinence Outpatient follow up for fibrosure vs fibroscan Outpatient EGD Labs: Acute Hep, DOLORES, AMA, ASMA, SPEP, ceruloplasmin, alpha 1, TTG IGA Please call with any questions or concerns. ATTESTATION: I have performed a history and physical examination of this patient and reviewed the electronic record. Specifically, on physical examination there is no asterixis. I have discussed the case with EDUARDO Langley. The above note reflects my findings, conclusions, and recommendations. Nigel Crum MD
[2017-05-10] MEDS ORDERED: POTASSIUM CHLORIDE 20 MEQ TABCR PO ONE (10:45)
[2017-05-10 10:59] LABS: MANUAL MICROSCOPIC REQUIRED? NO; REVIEW REQ? NO; URINE APPEARANCE CLEAR (CLEAR); URINE BILIRUBIN NEG (NEG); URINE COLOR YELLOW; URINE NITRITE NEG (NEG); URINE PH 6.5 (4.5-7.5); URINE SPECIFIC GRAVITY 1.017 (1.000-1.030); UROBILINOGEN NEG (NEG)
[2017-05-10 11:21] LABS: BENZODIAZEPINE, URINE NEG (NEG); COCAINE,URINE NEG (NEG); PHENCYCLIDINE, URINE NEG (NEG)
--- NOTE | 2017-05-10 15:00 | Neurology Consultation ---
Neurology Consultation Date of Consultation: May 10, 2017. Attending Physician: Gladis Sauer M.D. Primary Care Physician: Faisal Laboy M.D. Reason for Consultation: seizure CVA History of Present Illness Source: patient, hospital records Major is a 51 year old male with a PMH Etoh abuse, legally blind who presents to the ER with seizure like activity. He states before coming to the hospital he was on no medications. Daniel who evidently contributed to the HPI was not present with the patient during the seizure like activity but he heard it from someone that was present. Major was in a chair drinking a beer when his eyes rolled back in his head and his head went backwards. His whole body became stiff and his hands clenched crushing the can that was in his hand. He states he didn't bite his tongue or loss of bowel or bladder. He doesn't know how long he was out but he does remember waking up in the ambulance. He states he only drinks 4-5 beers a day but the friend that was will him states he drinks alot more. he states he has never had a seizure in the past no febrile seizures as a youth. No chest pain, shortness of breath, or palpitations, visual changes, one sided numbness tingling weakness, no slurred speech or difficulty swallowing, no fever chills night sweats. Past Medical/Surgical History Medical Problems: (1) Alcohol abuse Status: Acute Social History Smoking Status: Former smoker Smokeless Tobacco Use: 1 can/week Alcohol Use: patient reports 6 pack/2 days however landlord reports his intake is much higher Allergies Coded Allergies: No Known Allergies (Unverified , 05/09/17) Current Inpatient Medications Current Inpatient Medications Medications (Trade) Dose Ordered Sig/Ana Route Start Time Stop Time Status Last Admin Dose Admin Acetaminophen (Tylenol Tab) 650 mg Q4H PRN PO 05/09/17 20:45 06/08/17 20:44 Ondansetron HCl (Zofran Inj) 4 mg Q6H PRN IV 05/09/17 20:45 06/08/17 20:44 Miscellaneous Information (Pharmacist Discharge Med Rec Consult) 1 ea UD PRN N/A 05/09/17 20:45 06/08/17 20:44 Sodium Chloride 1,000 ml @ 100 mls/hr Q10H IV 05/09/17 22:00 06/08/17 21:59 05/10/17 08:35 100 MLS/HR Multivitamins 10 ml/Thiamine HCl 100 mg/Folic Acid 1 mg/Sodium Chloride 1,011.2 ml @ 500 mls/ hr DAILY@0900 IV 05/10/17 09:00 06/09/17 08:59 05/10/17 08:35 500 MLS/HR Lorazepam (Ativan Inj) PRN Dosing -Active Protocol Q1H PRN IV 05/09/17 20:45 06/08/17 20:44 Gabapentin (Neurontin Tab) 600 mg Q8H PO 05/11/17 06:00 05/11/17 22:01 Gabapentin (Neurontin Tab) 600 mg Q12H PO 05/12/17 10:00 05/12/17 22:01 Gabapentin (Neurontin Tab) 600 mg Q24H PO 05/13/17 22:00 05/13/17 22:01 Potassium/ Phosphorus/Sodium (Phospha 250 Neutral 155-852-130 Mg) 1 tab QID PO 05/10/17 09:00 05/10/17 23:59 05/10/17 13:17 1 TAB Gadobutrol (Gadavist) 7 mmol UD PRN IV 05/10/17 02:45 05/14/17 02:44 Physical Exam Vital Signs (Past 24 Hrs): Date Time Temp Pulse Resp B/P (MAP) Pulse Ox O2 Delivery O2 Flow Rate FiO2 05/10/17 12:27 37.0 88 18 145/84 (104) 96 05/10/17 12:00 98 Room Air 05/10/17 08:12 36.8 87 18 135/69 (91) 95 05/10/17 08:00 98 Room Air 05/10/17 04:00 36.9 85 148/93 (111) 97 Room Air 05/10/17 04:00 98 Room Air 05/10/17 01:35 37.2 89 18 147/88 (107) 98 Room Air 05/10/17 01:30 98 Room Air 05/09/17 21:49 37.0 103 18 166/99 97 Room Air 05/09/17 20:56 91 18 134/89 97 Room Air 05/09/17 19:36 90 18 158/76 97 Room Air 05/09/17 18:24 97 Room Air 05/09/17 18:24 97 Room Air 05/09/17 18:02 36.9 106 20 159/98 96 Room Air 05/09/17 17:59 114 Physical Exam: Constitutional: appearance nourished Ears, Nose, Mouth and Throat: mucous membranes moist, no injection and skin normal, eyes normal Cardiovascular: normal S-1 and S-2 and regular rate and rhythm Respiratory: clear to auscultation (CTA) and no rales, rhonchi or wheeze Musculoskeletal: no peripheral edema Skin: no stigmata of neurocutaneous disease noted and normal and intact Eyes: extraocular muscles intact (EOMI) and pupils equal, round and reactive to light (PERRL) NEUROLOGIC EXAMINATION: Mental status: Alert and interactive Oriented to [facility], 2017, [place], able to point to ceiling with right hand, stick out tongue, close eyes, identify pen, cell phone and what they are used for Oriented to person Speech fluent with no evidence of aphasia Cranial Nerves smile eye brow raise symmetric, tongue midline Reflexes: Deep tendon reflexes were symmetrical and graded 2/5. Plantar responses were flexor. Sensory: light touch vibration intact Coordination: finger to nose without bi pass Gait/Stance: Posture lying in bed Motor: Negative for pronator drift of out stretched arms with eyes closed. Strength: biceps triceps hand articulation officer 5/5 bilaterally, hip flex plantar flex ext 5/5 bilaterally Laboratory Results Past 24 Hours: 05/10/17 07:30 Red Blood Count 4.00, Mean Corpuscular Volume 93.0, Mean Corpuscular Hemoglobin 32.5, Mean Corpuscular Hemoglobin Concent 34.9, Mean Platelet Volume 10.4, Neutrophils (%) (Auto) 61.4, Lymphocytes (%) (Auto) 22.0, Monocytes (%) (Auto) 14.7, Eosinophils (%) (Auto) 1.3, Basophils (%) (Auto) 0.4, Neutrophils # (Auto ) 2.93, Lymphocytes # (Auto) 1.05, Monocytes # (Auto) 0.70, Eosinophils # (Auto ) 0.06, Basophils # (Auto) 0.02 05/10/17 07:30 Test 05/09/17 18:24 05/09/17 18:29 05/09/17 18:39 05/09/17 19:33 Ethyl Alcohol mg/dL < 3.0 mg/dl (0-3) Prothrombin Time 11.3 SECONDS (9.0-12.0) Prothromb Time International Ratio 1.1 (0.9-1.1) Activated Partial Thromboplast Time 26.0 SECONDS (21.0-31.0) Partial Thromboplastin Ratio 1.0 Total Bilirubin 1.5 mg/dl (0.2-1) Direct Bilirubin 0.7 mg/dl (0-0.2) Aspartate Amino Transf (AST/SGOT) 228 U/L (15-37) Alanine Aminotransferase (ALT/SGPT) 195 U/L (12-78) Alkaline Phosphatase 119 U/L (45-117) Ammonia 45.0 umol/L (11-32) Troponin I < 0.015 ng/ml (0-0.045) Total Protein 7.6 gm/dl (6.4-8.2) Albumin 3.6 gm/dl (3.4-5.0) Thyroid Stimulating Hormone (TSH) 1.370 uIu/ml (0.300-4.500) Hepatitis C Antibody Screen NEG (NEG) Platelet Estimate DECREASED Red Blood Cell Morphology Unremarkable Estimated Average Glucose 103 mg/dl Hemoglobin A1c 5.2 % (4.5-5.6) Test 05/10/17 00:00 05/10/17 07:30 05/10/17 09:48 Urine Color YELLOW Urine Appearance CLEAR (CLEAR) Urine pH 6.5 (4.5-7.5) Urine Specific [place] 1.017 (1.000-1.030) Urine Protein NEG (NEG) Urine Glucose (UA) NEG (NEG) Urine Ketones TRACE (NEG) Urine Occult Blood NEG (NEG) Urine Nitrite NEG (NEG) Urine Bilirubin NEG (NEG) Urine Urobilinogen NEG (NEG) Urine Leukocyte Esterase NEG (NEG) Urine Opiates Screen NEG (NEG) Urine Methadone, Qualitative NEG (NEG) Urine Barbiturates NEG (NEG) Urine Phencyclidine (PCP) Level NEG (NEG) Ur Amphetamine/Methamphetamine NEG (NEG) MDMA (Ecstasy) Screen NEG (NEG) Urine Benzodiazepines Screen NEG (NEG) Urine Cocaine Metabolite NEG (NEG) Urine Marijuana (THC) NEG (NEG) White Blood Count 4.77 K/uL (4.8-10.8) Red Blood Count 4.00 M/uL (4.7-6.1) Hemoglobin 13.0 g/dL (14.0-18.0) Hematocrit 37.2 % (42-52) Mean Corpuscular Volume 93.0 fL (80-100) Mean Corpuscular Hemoglobin 32.5 pg (25-34) Mean Corpuscular Hemoglobin Concent 34.9 g/dl (32-36) Platelet Count 76 K/uL (130-400) Mean Platelet Volume 10.4 fL (7.4-10.4) Neutrophils (%) (Auto) 61.4 % Lymphocytes (%) (Auto) 22.0 % Monocytes (%) (Auto) 14.7 % Eosinophils (%) (Auto) 1.3 % Basophils (%) (Auto) 0.4 % Neutrophils # (Auto) 2.93 K/uL (1.4-6.5) Lymphocytes # (Auto) 1.05 K/uL (1.2-3.4) Monocytes # (Auto) 0.70 K/uL (0.11-0.59) Eosinophils # (Auto) 0.06 K/uL (0-0.5) Basophils # (Auto) 0.02 K/uL (0-0.2) RDW Standard Deviation 46.5 fL (36.4-46.3) RDW Coefficient of Variation 13.6 % (11.5-14.5) Immature Granulocyte % (Auto) 0.2 % Immature Granulocyte # (Auto) 0.01 K/uL (0.00-0.02) Anion Gap 9.0 mmol/L (3-11) Est Creatinine Clear Calc Drug Dose 90.6 ml/min Estimated GFR () 117.3 Estimated GFR (Non- 101.2 BUN/Creatinine Ratio 11.8 (10-20) Calcium Level 8.5 mg/dl (8.5-10.1) Phosphorus Level 2.8 mg/dl (2.5-4.9) Magnesium Level 1.8 mg/dl (1.8-2.4) Triglycerides Level 49 mg/dl (0-150) Cholesterol Level 174 mg/dl (0-200) HDL Cholesterol 113 mg/dl LDL Cholesterol, Calculated 51 mg/dl VLDL Cholesterol, Calculated 10 mg/dl Cholesterol/HDL Ratio 1.5 Hepatitis B Surface Antigen NEG (NEG) Hepatitis C Antibody NEG (NEG) Imaging MRI with and without- No evidence for acute ischemic insult. CT findings. Be secondary to a combination of atrophy and patient motion. Chronic findings of small vessel change and atrophy MRA brain -Degraded image quality secondary to motion artifact decreasing diagnostic sensitivity. Given the left dominant vertebral artery anatomic pattern, the right vertebral artery most likely terminates as the right PICA. Please see separately dictated MRA neck. Mild apparent stenosis of the paraclinoid right ICA. No other significant stenosis, aneurysm, or occlusion. MRI neck- Unremarkable MR angiogram of the neck noting a motion compromised examination. CT neck- Moderate degenerative change. No acute process. CT head- Potential subacute infarcts of the right and to lesser extent left occipital lobes. No acute intracranial hemorrhage Impression 51 year old male s/p seizure like episode Plan 1. EtOH protocol with gabapentin 2. banana bag and thiame and folate replacement 3. EEG done and pending read 4. Keppra could be started however also course to repeat EEG as out patient 72 hours before starting if inpatient EEG negative 5. needs EtOH counseling 6. GI for liver issues 7. [facility] safety check needed 8. further recommendations to follow I have seen and discussed above patient with Dr Krytsle Wesley, neurology Patient examined and above discussed with Latasha Koch seizure like activity reported while consuming etoh in this man with clear etoh abuse or chronic type and a encephalopathy syndrome with congenital catarracts and legal blindness despite lens implants CT suggested cva but mri shows nothing new and exam is non focal save for the roving eye movements and dysarthric explosive speech. eeg normal no seizure activity seen since admission and he is not demonstrating any withdrawal as yet but is pushing for discharge making me suspect he is seeking some etoh . Would not rx as a seizure disorder with aeds at this time and contineu the gabapentin protocol for now if he consents to stay will follow up tomorrow krystle Wesley MD
--- NOTE | 2017-05-10 17:26 | Progress Note ---
Medicine Progress Note Date & Time of Visit: May 10, 2017 at 16:55. Subjective Pt was seen and examined Lying in bed with no distress watching TV Pt said that he feels fine No seizure activity Denies any chest pain, palpitation, dizziness and sob Objective Last 8 Hrs Date Time Temp Pulse Resp B/P (MAP) Pulse Ox O2 Delivery O2 Flow Rate FiO2 05/10/17 15:50 37.1 86 19 123/77 (92) 97 Room Air 05/10/17 13:58 99 97 05/10/17 12:27 37.0 88 18 145/84 (104) 96 05/10/17 12:00 98 Room Air Physical Exam: General- No acute distress Head- atraumatic Eyes- PERRL, EOMI, alot eyes movement unable to assess for nystagmus ENT- oropharynx clear Neck- supple, no JVD Lungs- clear to auscultation Heart- regular rhythm Abdomen- normal bowel sounds, soft Extremities- no calf tenderness Neuro- alert, oriented x 3; PERRL, EOMI, no tremor Skin- warm & dry Laboratory Results: Last 24 Hours Test 05/09/17 18:24 05/09/17 18:29 05/09/17 18:39 05/09/17 19:33 Ethyl Alcohol mg/dL < 3.0 mg/dl Prothrombin Time 11.3 SECONDS Prothromb Time International Ratio 1.1 Activated Partial Thromboplast Time 26.0 SECONDS Partial Thromboplastin Ratio 1.0 Sodium Level 130 mmol/L Potassium Level 3.6 mmol/L Chloride Level 94 mmol/L Carbon Dioxide Level 22 mmol/L Anion Gap 14.0 mmol/L Blood Urea Nitrogen 9 mg/dl Creatinine 1.10 mg/dl Est Creatinine Clear Calc Drug Dose 68.3 ml/min Estimated GFR () 89.0 Estimated GFR (Non- 76.8 BUN/Creatinine Ratio 8.5 Random Glucose 145 mg/dl Calcium Level 10.0 mg/dl Phosphorus Level 2.1 mg/dl Magnesium Level 1.5 mg/dl Total Bilirubin 1.5 mg/dl Direct Bilirubin 0.7 mg/dl Aspartate Amino Transf (AST/SGOT) 228 U/L Alanine Aminotransferase (ALT/SGPT) 195 U/L Alkaline Phosphatase 119 U/L Ammonia 45.0 umol/L Troponin I < 0.015 ng/ml Total Protein 7.6 gm/dl Albumin 3.6 gm/dl Thyroid Stimulating Hormone (TSH) 1.370 uIu/ml Hepatitis C Antibody Screen NEG White Blood Count 7.20 K/uL Red Blood Count 4.46 M/uL Hemoglobin 14.2 g/dL Hematocrit 40.3 % Mean Corpuscular Volume 90.4 fL Mean Corpuscular Hemoglobin 31.8 pg Mean Corpuscular Hemoglobin Concent 35.2 g/dl Platelet Count 81 K/uL Mean Platelet Volume 10.9 fL Neutrophils (%) (Auto) 81.3 % Lymphocytes (%) (Auto) 7.2 % Monocytes (%) (Auto) 10.8 % Eosinophils (%) (Auto) 0.1 % Basophils (%) (Auto) 0.3 % Neutrophils # (Auto) 5.85 K/uL Lymphocytes # (Auto) 0.52 K/uL Monocytes # (Auto) 0.78 K/uL Eosinophils # (Auto) 0.01 K/uL Basophils # (Auto) 0.02 K/uL RDW Standard Deviation 44.4 fL RDW Coefficient of Variation 13.4 % Immature Granulocyte % (Auto) 0.3 % Immature Granulocyte # (Auto) 0.02 K/uL Platelet Estimate DECREASED Red Blood Cell Morphology Unremarkable Estimated Average Glucose 103 mg/dl Hemoglobin A1c 5.2 % Test 05/10/17 00:00 05/10/17 07:30 05/10/17 09:48 Urine Color YELLOW Urine Appearance CLEAR Urine pH 6.5 Urine Specific Theresa 1.017 Urine Protein NEG Urine Glucose (UA) NEG Urine Ketones TRACE Urine Occult Blood NEG Urine Nitrite NEG Urine Bilirubin NEG Urine Urobilinogen NEG Urine Leukocyte Esterase NEG Urine Opiates Screen NEG Urine Methadone, Qualitative NEG Urine Barbiturates NEG Urine Phencyclidine (PCP) Level NEG Ur Amphetamine/Methamphetamine NEG MDMA (Ecstasy) Screen NEG Urine Benzodiazepines Screen NEG Urine Cocaine Metabolite NEG Urine Marijuana (THC) NEG White Blood Count 4.77 K/uL Red Blood Count 4.00 M/uL Hemoglobin 13.0 g/dL Hematocrit 37.2 % Mean Corpuscular Volume 93.0 fL Mean Corpuscular Hemoglobin 32.5 pg Mean Corpuscular Hemoglobin Concent 34.9 g/dl Platelet Count 76 K/uL Mean Platelet Volume 10.4 fL Neutrophils (%) (Auto) 61.4 % Lymphocytes (%) (Auto) 22.0 % Monocytes (%) (Auto) 14.7 % Eosinophils (%) (Auto) 1.3 % Basophils (%) (Auto) 0.4 % Neutrophils # (Auto) 2.93 K/uL Lymphocytes # (Auto) 1.05 K/uL Monocytes # (Auto) 0.70 K/uL Eosinophils # (Auto) 0.06 K/uL Basophils # (Auto) 0.02 K/uL RDW Standard Deviation 46.5 fL RDW Coefficient of Variation 13.6 % Immature Granulocyte % (Auto) 0.2 % Immature Granulocyte # (Auto) 0.01 K/uL Sodium Level 136 mmol/L Potassium Level 3.4 mmol/L Chloride Level 101 mmol/L Carbon Dioxide Level 26 mmol/L Anion Gap 9.0 mmol/L Blood Urea Nitrogen 10 mg/dl Creatinine 0.83 mg/dl Est Creatinine Clear Calc Drug Dose 90.6 ml/min Estimated GFR () 117.3 Estimated GFR (Non- 101.2 BUN/Creatinine Ratio 11.8 Random Glucose 73 mg/dl Calcium Level 8.5 mg/dl Phosphorus Level 2.8 mg/dl Magnesium Level 1.8 mg/dl Triglycerides Level 49 mg/dl Cholesterol Level 174 mg/dl HDL Cholesterol 113 mg/dl LDL Cholesterol, Calculated 51 mg/dl VLDL Cholesterol, Calculated 10 mg/dl Cholesterol/HDL Ratio 1.5 Hepatitis B Surface Antigen NEG Hepatitis C Antibody NEG Assessment & Plan ALCOHOL ABUSE POSSIBLE SEIZURE -Present with symptoms like seizure - No seizure activity inpatient - On gabapentin for alcohol protocol - EEG pending - Continue seizure precautions - Neuro on board - Will start on seizure med if EEG show seizure activity or pt develops a seizure while in the hospital - Continue banana bag, PRN Ativan per protocol - No signs of alcohol withdrawn - Continue monitor closely - MRI of the head showed no evidence for acute ischemic insult. - MRA head showed no significant stenosis, aneurysm, or occlusion - MRA Neck showed unremarkable MR angiogram of the neck noting a motion compromised examination. - Counseling on alcohol cessation ECHO DONE * The left ventricular wall motion is normal. * There is mild concentric left ventricular hypertrophy. * Left ventricular systolic function is normal. * Ejection Fraction = 55-60%. * The aortic valve is not sufficiently visualized to determined the number of cusps. The aortic valve is mildly calcified. * There is no significant aortic regurgitation. * Aortic stenosis is absent. * Grade I diastolic dysfunction, (abnormal relaxation pattern). * The interatrial septum is intact with no evidence for an atrial septal defect demonstrated with the administration of agitated saline contrast. ABNORMAL CT HEAD - no gross focal deficits notes - brain MRI/MRA, neck MRA are negative for acute stroke - Continue asa ELEVATED LFT Possible related to alcohol U/S showed Fatty infiltration of liver. Normal caliber bile ducts. Trace amount of gallbladder sludge. denies any abdominal pain Acute Hep, DOLORES, AMA, ASMA, SPEP, ceruloplasmin, alpha 1, TTG IGA pending Gastro on board continue monitor liver enzymes THROMBOCYTOPENIA - Due to alcohol - Platelet 76 - continue monitor cbc ELECTROLYTES IMBALANCE - K replaced - Monitor electrolytes DVT PROPHYLAXIS - SCDs due to thrombocytopenia DISPOSITION EEG pending Consultants: Gastro Neuro Current Inpatient Medications: Current Inpatient Medications Medications (Trade) Dose Ordered Sig/Ana Route Start Time Stop Time Status Last Admin Dose Admin Acetaminophen (Tylenol Tab) 650 mg Q4H PRN PO 05/09/17 20:45 06/08/17 20:44 Ondansetron HCl (Zofran Inj) 4 mg Q6H PRN IV 05/09/17 20:45 06/08/17 20:44 Miscellaneous Information (Pharmacist Discharge Med Rec Consult) 1 ea UD PRN N/A 05/09/17 20:45 06/08/17 20:44 Sodium Chloride 1,000 ml @ 100 mls/hr Q10H IV 05/09/17 22:00 06/08/17 21:59 05/10/17 15:10 100 MLS/HR Multivitamins 10 ml/Thiamine HCl 100 mg/Folic Acid 1 mg/Sodium Chloride 1,011.2 ml @ 500 mls/ hr DAILY@0900 IV 05/10/17 09:00 06/09/17 08:59 05/10/17 08:35 500 MLS/HR Lorazepam (Ativan Inj) PRN Dosing -Active Protocol Q1H PRN IV 05/09/17 20:45 06/08/17 20:44 Gabapentin (Neurontin Tab) 600 mg Q8H PO 05/11/17 06:00 05/11/17 22:01 Gabapentin (Neurontin Tab) 600 mg Q12H PO 05/12/17 10:00 05/12/17 22:01 Gabapentin (Neurontin Tab) 600 mg Q24H PO 05/13/17 22:00 05/13/17 22:01 Potassium/ Phosphorus/Sodium (Phospha 250 Neutral 155-852-130 Mg) 1 tab QID PO 05/10/17 09:00 05/10/17 23:59 05/10/17 15:09 1 TAB Gadobutrol (Gadavist) 7 mmol UD PRN IV 05/10/17 02:45 05/14/17 02:44
[2017-05-11] VITALS (13 sets, daily range): BP systolic 126–187; BP diastolic 66–112; PULSE 57–100; TEMP 36.6–37.1; O2SAT 94–99
--- NOTE | 2017-05-11 | ELECTROENCEPHALOGRAPH REPORT ---
REQUESTING PHYSICIAN: Gladis Sauer MD CLINICAL DIAGNOSIS: Alcoholism with seizure like event. ELECTROENCEPHALOGRAM DIAGNOSIS: Essentially normal during wakefulness. DESCRIPTION OF TRACING: This EEG was done as a bedside recording and was of reasonable technical quality with few or no muscle or movement artifacts. Video analysis of patient movement and behavior was obtained. Photic stimulation was performed. Hyperventilation was not. Drowsiness and light sleep were not seen. Under these conditions, there is evidence for low amplitude background rhythm in the alpha range of up to about 9-10 Hz of maximum frequency and 20 microvolts of maximum amplitude. This is maximum posterior head regions and bilaterally symmetrical. Polymorphic mid frequency theta activity is seen over all head regions without clear focal or regional predominance. Anterior head region maximum bilaterally symmetrical low voltage fast activity in the beta range is present. Photic stimulation provokes a modest driving response without a photomyogenic or photoparoxysmal component. At no time during the waking tracing is there evidence for potentially epileptogenic activity in the form of polyspike or spike wave bursts, focal sharp waves or focal spikes. INTERPRETATION: This EEG is essentially normal during wakefulness without evidence for focal or generalized encephalopathy and without evidence for potentially epileptogenic activity.
[2017-05-11] MEDS: SODIUM CHLORIDE 0.9% 1000ML 1,000 ML IV SCH ×3 (02:19→20:00)
[2017-05-11] MEDS: GABAPENTIN 600MG Q8H DOSE PO SCH ×3 (06:01→21:34)
[2017-05-11 07:37] LABS: HEMATOCRIT 38.4 % (42-52); MEAN CELL VOLUME 94.6 fL (80-100); MEAN CORPUSCULAR HEMOGLOBIN 32.5 pg (25-34); MEAN CORPUSCULAR HGB CONC 34.4 g/dl (32-36); RED BLOOD COUNT 4.06 M/uL (4.7-6.1); WHITE BLOOD COUNT 5.72 K/uL (4.8-10.8)
[2017-05-11] MEDS: LORAZEPAM 2 MG/ML 1 ML VIAL IV PRN ×7 (07:43→21:37)
[2017-05-11 07:48] LABS: PLATELET COUNT 96 K/uL (130-400)
[2017-05-11 08:10] LABS: BUN/CREATININE RATIO 7.9 (10-20); CALCIUM 8.6 mg/dl (8.5-10.1); CREATININE 0.85 mg/dl (0.60-1.40); MAGNESIUM 1.5 mg/dl (1.8-2.4); POTASSIUM 3.5 mmol/L (3.5-5.1)
[2017-05-11] MEDS: MULTI-VITAMIN INFUSION INJ 10 ML, THIAMINE HCL INJ 100 MG, FoLIC ACID INJ 1 MG in SODIU... IV SCH (08:15)
[2017-05-11 08:17] LABS: ALB/GLOB RATIO 0.8 (0.9-2); PHOSPHORUS 2.9 mg/dl (2.5-4.9)
[2017-05-11 08:31] LABS: BASO % 1.2 %; BASO ABS # 0.07 K/uL (0-0.2); COMPLETE YES; EOS % 1.6 %; IG% 0.2 %; MONO % 12.1 %; NEUT % 56.9 %
--- NOTE | 2017-05-11 14:09 | Progress Note ---
Internal Med Progress Note Date of Service: May 11, 2017. Provider Documentation: SUBJECTIVE: The patient was seen and examined H/O Alcoholism and admitted with possible seizure Confused and gets agitated at times and starts hitting Nursing members Denies any symptoms OBJECTIVE: Vital Signs-as noted below Exam: General-NO distress at rest Pleasantly confused Eyes-Normal ENT-normal Neck-supple Lungs-clear to ausucltate bilaterally Heart-Regular,no murmur Abdomen-Benign,no masses Extremities-No edema Neuro-AA Drowsy during my exam Lab data as noted below. ASSESSMENT & PLAN: ALCOHOL ABUSE POSSIBLE SEIZURE -Present with symptoms like seizure - No seizure activity since admission -no withdrawal symptoms on admission -EEG pending -Appreciate Neurology input -No antiseizure medications yet Alcohol withdrawal -showing symptoms of withdrawal -has been on Banana Bag infusion,Gabapentin and Ativan as per Withdrawal protocol -Agitated at times -requiring Restraints -Suggest outpatient rehab to aid in ETOH abstinence ECHO DONE * The left ventricular wall motion is normal. * There is mild concentric left ventricular hypertrophy. * Left ventricular systolic function is normal. * Ejection Fraction = 55-60%. * The aortic valve is not sufficiently visualized to determined the number of cusps. The aortic valve is mildly calcified. * There is no significant aortic regurgitation. * Aortic stenosis is absent. * Grade I diastolic dysfunction, (abnormal relaxation pattern). * The interatrial septum is intact with no evidence for an atrial septal defect demonstrated with the administration of agitated saline contrast. Abnormal CT of the Head -appreciate Neurology input - MRI of the head showed no evidence for acute ischemic insult. - MRA head showed no significant stenosis, aneurysm, or occlusion - MRA Neck showed unremarkable MR angiogram of the neck noting a motion compromised examination. ELEVATED LFT Possible related to alcohol U/S showed Fatty infiltration of liver. Normal caliber bile ducts. Trace amount of gallbladder sludge. Acute Hep, DOLORES, AMA, ASMA, SPEP, ceruloplasmin, alpha 1, TTG IGA pending Gastro on board-appreciate input continue monitor liver enzymes THROMBOCYTOPENIA - Due to alcohol - Platelet 76 - continue monitor cbc ELECTROLYTES IMBALANCE - K replaced - Monitor electrolytes DVT PROPHYLAXIS - SCDs due to thrombocytopenia DISPOSITION EEG pending Consultants: Gastro Neuro Vital Signs: Date Time Temp Pulse Resp B/P (MAP) Pulse Ox O2 Delivery O2 Flow Rate FiO2 05/11/17 12:00 98 Room Air 05/11/17 12:00 36.8 88 18 129/66 (87) 99 05/11/17 08:00 36.6 100 20 157/93 (114) 97 Room Air 05/11/17 08:00 98 Room Air 05/11/17 04:00 Room Air 05/11/17 03:09 37.1 65 20 144/89 (107) 97 Room Air 05/10/17 23:59 Room Air 05/10/17 22:58 36.9 73 20 161/84 (109) 97 Room Air 05/10/17 20:00 Room Air 05/10/17 20:00 37.3 80 22 146/87 (106) 98 Room Air 05/10/17 16:00 Room Air 05/10/17 15:50 37.1 86 19 123/77 (92) 97 Room Air Lab Results: Results Past 24 Hours Test 05/11/17 07:18 Range/Units White Blood Count 5.72 4.8-10.8 K/uL Red Blood Count 4.06 4.7-6.1 M/uL Hemoglobin 13.2 14.0-18.0 g/dL Hematocrit 38.4 42-52 % Mean Corpuscular Volume 94.6 80-100 fL Mean Corpuscular Hemoglobin 32.5 25-34 pg Mean Corpuscular Hemoglobin Concent 34.4 32-36 g/dl Platelet Count 96 130-400 K/uL Mean Platelet Volume 11.0 7.4-10.4 fL Neutrophils (%) (Auto) 56.9 % Lymphocytes (%) (Auto) 28.0 % Monocytes (%) (Auto) 12.1 % Eosinophils (%) (Auto) 1.6 % Basophils (%) (Auto) 1.2 % Neutrophils # (Auto) 3.26 1.4-6.5 K/uL Lymphocytes # (Auto) 1.60 1.2-3.4 K/uL Monocytes # (Auto) 0.69 0.11-0.59 K/uL Eosinophils # (Auto) 0.09 0-0.5 K/uL Basophils # (Auto) 0.07 0-0.2 K/uL RDW Standard Deviation 46.3 36.4-46.3 fL RDW Coefficient of Variation 13.4 11.5-14.5 % Immature Granulocyte % (Auto) 0.2 % Immature Granulocyte # (Auto) 0.01 0.00-0.02 K/uL Sodium Level 138 136-145 mmol/L Potassium Level 3.5 3.5-5.1 mmol/L Chloride Level 104 98-107 mmol/L Carbon Dioxide Level 29 21-32 mmol/L Anion Gap 5.0 3-11 mmol/L Blood Urea Nitrogen 7 7-18 mg/dl Creatinine 0.85 0.60-1.40 mg/dl Est Creatinine Clear Calc Drug Dose 96.3 ml/min Estimated GFR () 116.1 Estimated GFR (Non- 100.2 BUN/Creatinine Ratio 7.9 10-20 Random Glucose 87 70-99 mg/dl Calcium Level 8.6 8.5-10.1 mg/dl Phosphorus Level 2.9 2.5-4.9 mg/dl Magnesium Level 1.5 1.8-2.4 mg/dl Total Bilirubin 1.0 0.2-1 mg/dl Aspartate Amino Transf (AST/SGOT) 105 15-37 U/L Alanine Aminotransferase (ALT/SGPT) 131 12-78 U/L Alkaline Phosphatase 114 45-117 U/L Total Protein 6.8 6.4-8.2 gm/dl Albumin 3.0 3.4-5.0 gm/dl Globulin 3.8 2.5-4.0 gm/dl Albumin/Globulin Ratio 0.8 0.9-2
--- NOTE | 2017-05-11 16:00 | PROGRESS NOTE ---
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 Mr. Patino is in florid delirium tremens currently, he became agitated and combative last night and is now in 4-point restraints and is very aggressive, assaultive. He is using expletives and is of course threatening to leave "change positions" and is accusing the nursing staff of all sorts of usual behavior. The exam shows nystagmus of the visually impaired, the dysarthria of speech and some tremulousness, but at this point is not possible to really perform to any detail. He is on the DT protocol with gabapentin along with p.r.n. Ativan and I will check with him tomorrow, but for now I have no further suggestions. The EEG does not show any ongoing seizure activity. There has been no clinical seizure activity and he is on an anticonvulsant in the form of Neurontin anyway, so adding another agent at this point to me makes little or no sense.
[2017-05-11] MEDS ORDERED: CLONIDINE HCL 0.1 MG TAB PO ONE (16:35)
[2017-05-11 22:37] LABS: ALBUMIN 3.5 G/DL (3.8-4.8); ALPHA-1-ANTITRYPSIN TC 67710E 139 MG/DL (83-199); GAMMA GLOBULIN 1.4 G/DL (0.8-1.7); TOTAL PROTEIN 6.3 G/DL (6.2-8.3)
[2017-05-12] VITALS (7 sets, daily range): BP systolic 122–186; BP diastolic 74–105; PULSE 63–84; TEMP 36.5–36.8; O2SAT 97–100
[2017-05-12] MEDS: LORAZEPAM 2 MG/ML 1 ML VIAL IV PRN ×3 (00:46→16:22)
[2017-05-12 07:35] LABS: HEMATOCRIT 39.2 % (42-52); MEAN CELL VOLUME 92.2 fL (80-100); MEAN CORPUSCULAR HEMOGLOBIN 32.9 pg (25-34); MEAN CORPUSCULAR HGB CONC 35.7 g/dl (32-36); RED BLOOD COUNT 4.25 M/uL (4.7-6.1); WHITE BLOOD COUNT 4.85 K/uL (4.8-10.8)
[2017-05-12] MEDS ORDERED: NURSING VERBAL MED ORDER ONE (07:45)
[2017-05-12 07:56] LABS: PLATELET COUNT 82 K/uL (130-400)
[2017-05-12] MEDS: MULTI-VITAMIN INFUSION INJ 10 ML, THIAMINE HCL INJ 100 MG, FoLIC ACID INJ 1 MG in SODIU... IV SCH (08:00)
[2017-05-12 08:01] LABS: BUN/CREATININE RATIO 4.3 (10-20); CALCIUM 8.9 mg/dl (8.5-10.1); CREATININE 0.77 mg/dl (0.60-1.40); POTASSIUM 3.2 mmol/L (3.5-5.1)
[2017-05-12] MEDS: CLONIDINE HCL 0.1 MG TAB PO PRN (08:01)
[2017-05-12 08:16] LABS: BASO ABS # 0.05 K/uL (0-0.2); COMPLETE YES; EOS % 1.4 %; IG% 0.2 %; LYMPH % 21.9 %; LYMPH ABS # 1.06 K/uL (1.2-3.4); MONO % 11.1 %; NEUT % 64.4 %
[2017-05-12] MEDS: GABAPENTIN 600MG Q12H DOSE PO SCH ×2 (10:31→21:39)
[2017-05-12] MEDS ORDERED: POTASSIUM CHLORIDE 20 MEQ TABCR PO ONE (12:30)
--- NOTE | 2017-05-12 15:38 | PROGRESS NOTE ---
DATE: 05/12/2017 DATE: 05/12/2017 Mr. Patino looks better today. He is out of his restraints. He is resting. He is requiring or has required quite a bit of benzodiazepines to calm him down, but it appears that he is through the worst of his withdrawal. He is oriented. He knows the date, knows the time and has no recall over the last day and a half to 2 days which would be typical delirium tremens. There is a little tremulousness of the outstretched hands. He has the wild chaotic eye movements of the visually impaired and dysarthric speech which I think is part of his encephalopathy, but no seizure activity has been seen and at this point I would not put him on any maintenance anticonvulsants. I think he probably had an alcohol related seizure, although level was low, so there may have been elements of relative withdrawal. Certainly what we saw clinically in the last few days is completely consistent with the diagnosis of delirium tremens. 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
--- NOTE | 2017-05-12 15:58 | Progress Note ---
Internal Med Progress Note Date of Service: May 12, 2017. Provider Documentation: SUBJECTIVE: The patient was seen and examined H/O Alcoholism and admitted with possible seizure Confused and gets agitated at times and starts hitting Nursing members No more Aggressive behavior Remains stable with High BP OBJECTIVE: Vital Signs-as noted below Exam: General-NO distress at rest Pleasantly confused Eyes-Normal with impaired vision ENT-normal Neck-supple Lungs-clear to ausucltate bilaterally Heart-Regular,no murmur Abdomen-Benign,no masses Extremities-No edema Neuro-AA Drowsy during my exam Lab data as noted below. ASSESSMENT & PLAN: ALCOHOL ABUSE POSSIBLE SEIZURE -Present with symptoms like seizure - No seizure activity since admission -no withdrawal symptoms on admission -EEG --No evidence of Epilepsy -Appreciate Neurology input -No more seizures Alcohol withdrawal -showing symptoms of withdrawal -has been on Banana Bag infusion,Gabapentin and Ativan as per Withdrawal protocol -Agitated at times -required Restraints -Suggest outpatient rehab to aid in ETOH abstinence -Now under one to one observation ECHO DONE * The left ventricular wall motion is normal. * There is mild concentric left ventricular hypertrophy. * Left ventricular systolic function is normal. * Ejection Fraction = 55-60%. * The aortic valve is not sufficiently visualized to determined the number of cusps. The aortic valve is mildly calcified. * There is no significant aortic regurgitation. * Aortic stenosis is absent. * Grade I diastolic dysfunction, (abnormal relaxation pattern). * The interatrial septum is intact with no evidence for an atrial septal defect demonstrated with the administration of agitated saline contrast. Abnormal CT of the Head -appreciate Neurology input - MRI of the head showed no evidence for acute ischemic insult. - MRA head showed no significant stenosis, aneurysm, or occlusion - MRA Neck showed unremarkable MR angiogram of the neck noting a motion compromised examination. -neurology signed out ELEVATED LFT Possible related to alcohol U/S showed Fatty infiltration of liver. Normal caliber bile ducts. Trace amount of gallbladder sludge. Acute Hep, DOLORES, AMA, ASMA, SPEP, ceruloplasmin, alpha 1, TTG IGA pending Gastro on board-appreciate input continue monitor liver enzymes THROMBOCYTOPENIA - Due to alcohol - Platelet 76 - continue monitor cbc ELECTROLYTES IMBALANCE - K replaced - Monitor electrolytes DVT PROPHYLAXIS - SCDs due to thrombocytopenia DISPOSITION EEG pending Consultants: Gastro Neuro Vital Signs: Date Time Temp Pulse Resp B/P (MAP) Pulse Ox O2 Delivery O2 Flow Rate FiO2 9/22/17 12:00 Room Air 05/12/17 11:03 36.6 66 16 155/83 (107) 99 Room Air 05/12/17 08:00 Room Air 05/12/17 06:58 36.7 63 18 186/103 (130) 100 Room Air 05/12/17 04:00 Room Air 05/12/17 03:07 36.5 68 23 158/95 (116) 99 Room Air 05/12/17 02:09 36.5 65 20 181/105 (130) 99 Room Air 05/11/17 23:59 Room Air 05/11/17 23:18 185/101 (129) 05/11/17 22:56 36.6 64 20 184/99 (127) 98 Room Air 05/11/17 20:00 Room Air 05/11/17 19:12 37.0 57 20 150/86 (107) 97 Room Air 05/11/17 17:30 99 20 173/100 (124) 05/11/17 17:11 163/88 (113) 05/11/17 16:53 36.7 130/70 (90) 05/11/17 16:03 187/112 (137) 05/11/17 16:02 167/108 (127) 05/11/17 16:00 Room Air Lab Results: Results Past 24 Hours Test 05/12/17 07:22 Range/Units White Blood Count 4.85 4.8-10.8 K/uL Red Blood Count 4.25 4.7-6.1 M/uL Hemoglobin 14.0 14.0-18.0 g/dL Hematocrit 39.2 42-52 % Mean Corpuscular Volume 92.2 80-100 fL Mean Corpuscular Hemoglobin 32.9 25-34 pg Mean Corpuscular Hemoglobin Concent 35.7 32-36 g/dl Platelet Count 82 130-400 K/uL Mean Platelet Volume 10.0 7.4-10.4 fL Neutrophils (%) (Auto) 64.4 % Lymphocytes (%) (Auto) 21.9 % Monocytes (%) (Auto) 11.1 % Eosinophils (%) (Auto) 1.4 % Basophils (%) (Auto) 1.0 % Neutrophils # (Auto) 3.12 1.4-6.5 K/uL Lymphocytes # (Auto) 1.06 1.2-3.4 K/uL Monocytes # (Auto) 0.54 0.11-0.59 K/uL Eosinophils # (Auto) 0.07 0-0.5 K/uL Basophils # (Auto) 0.05 0-0.2 K/uL RDW Standard Deviation 45.1 36.4-46.3 fL RDW Coefficient of Variation 13.4 11.5-14.5 % Immature Granulocyte % (Auto) 0.2 % Immature Granulocyte # (Auto) 0.01 0.00-0.02 K/uL Sodium Level 138 136-145 mmol/L Potassium Level 3.2 3.5-5.1 mmol/L Chloride Level 104 98-107 mmol/L Carbon Dioxide Level 29 21-32 mmol/L Anion Gap 5.0 3-11 mmol/L Blood Urea Nitrogen 3 7-18 mg/dl Creatinine 0.77 0.60-1.40 mg/dl Est Creatinine Clear Calc Drug Dose 97.6 ml/min Estimated GFR () 120.9 Estimated GFR (Non- 104.3 BUN/Creatinine Ratio 4.3 10-20 Random Glucose 83 70-99 mg/dl Calcium Level 8.9 8.5-10.1 mg/dl
[2017-05-13] VITALS (7 sets, daily range): BP systolic 125–175; BP diastolic 81–98; PULSE 57–73; TEMP 36.3–36.8; O2SAT 98–100
[2017-05-13] MEDS: SODIUM CHLORIDE 0.9% 1000ML 1,000 ML IV SCH (02:37)
[2017-05-13 06:57] LABS: MEAN CELL VOLUME 93.2 fL (80-100); MEAN CORPUSCULAR HEMOGLOBIN 32.2 pg (25-34); MEAN CORPUSCULAR HGB CONC 34.5 g/dl (32-36); MEAN PLATELET VOLUME 10.3 fL (7.4-10.4); PLATELET COUNT 114 K/uL (130-400); RED BLOOD COUNT 4.29 M/uL (4.7-6.1); WHITE BLOOD COUNT 5.44 K/uL (4.8-10.8)
[2017-05-13 07:33] LABS: BUN/CREATININE RATIO 7.9 (10-20); CALCIUM 8.3 mg/dl (8.5-10.1); CREATININE 0.88 mg/dl (0.60-1.40); MAGNESIUM 1.5 mg/dl (1.8-2.4); POTASSIUM 3.5 mmol/L (3.5-5.1)
[2017-05-13 07:34] LABS: PHOSPHORUS 2.9 mg/dl (2.5-4.9)
[2017-05-13] MEDS ORDERED: MULTI-VITAMIN INFUSION INJ 10 ML, THIAMINE HCL INJ 100 MG, FoLIC ACID INJ 1 MG in SODIU... IV SCH (09:00)
[2017-05-13] MEDS: CLONIDINE HCL 0.1 MG TAB PO PRN (09:55)
[2017-05-13] MEDS ORDERED: CLONIDINE HCL 0.1 MG TAB PO SCH (11:00)
--- NOTE | 2017-05-13 16:20 | Progress Note ---
Internal Med Progress Note Date of Service: May 13, 2017. Provider Documentation: SUBJECTIVE: The patient was seen and examined H/O Alcoholism and admitted with possible seizure Confused and gets agitated at times and starts hitting Nursing members No more Aggressive behavior Remains stable with High BP 05/13/17 Clinically a lot better No more withdrawal symptoms BP is reasonable OBJECTIVE: Vital Signs-as noted below Exam: General-NO distress at rest Pleasantly confused Eyes-Normal with impaired vision ENT-normal Neck-supple Lungs-clear to ausucltate bilaterally Heart-Regular,no murmur Abdomen-Benign,no masses Extremities-No edema Neuro-AA Drowsy during my exam Lab data as noted below. ASSESSMENT & PLAN: ALCOHOL ABUSE POSSIBLE SEIZURE -Present with symptoms like seizure - No seizure activity since admission -no withdrawal symptoms on admission -EEG --No evidence of Epilepsy -Appreciate Neurology input and signed out -No more seizures Alcohol withdrawal -showing symptoms of withdrawal -has been on Banana Bag infusion,Gabapentin and Ativan as per Withdrawal protocol -Agitated at times -required Restraints -Suggest outpatient rehab to aid in ETOH abstinence -Now under one to one observation -Clinically improved -transfer to [place] PT/OT /social service ECHO DONE * The left ventricular wall motion is normal. * There is mild concentric left ventricular hypertrophy. * Left ventricular systolic function is normal. * Ejection Fraction = 55-60%. * The aortic valve is not sufficiently visualized to determined the number of cusps. The aortic valve is mildly calcified. * There is no significant aortic regurgitation. * Aortic stenosis is absent. * Grade I diastolic dysfunction, (abnormal relaxation pattern). * The interatrial septum is intact with no evidence for an atrial septal defect demonstrated with the administration of agitated saline contrast. Abnormal CT of the Head -appreciate Neurology input - MRI of the head showed no evidence for acute ischemic insult. - MRA head showed no significant stenosis, aneurysm, or occlusion - MRA Neck showed unremarkable MR angiogram of the neck noting a motion compromised examination. -neurology signed out ELEVATED LFT Possible related to alcohol U/S showed Fatty infiltration of liver. Normal caliber bile ducts. Trace amount of gallbladder sludge. Acute Hep, DOLORES, AMA, ASMA, SPEP, ceruloplasmin, alpha 1, TTG IGA pending Gastro on board-appreciate input continue monitor liver enzymes THROMBOCYTOPENIA - Due to alcohol - Platelet 76 - continue monitor cbc ELECTROLYTES IMBALANCE - K replaced - Monitor electrolytes DVT PROPHYLAXIS - SCDs due to thrombocytopenia DISPOSITION EEG pending Consultants: Gastro Neuro >Likely discharge in a day or two Vital Signs: Date Time Temp Pulse Resp B/P (MAP) Pulse Ox O2 Delivery O2 Flow Rate FiO2 05/13/17 16:00 Room Air 05/13/17 15:47 36.8 57 16 100 05/13/17 15:39 36.8 57 16 170/87 (114) 100 Room Air 05/13/17 12:00 Room Air 05/13/17 11:45 36.5 73 18 125/81 (96) 98 Room Air 05/13/17 08:00 Room Air 05/13/17 08:00 36.3 61 19 175/98 (123) 100 Room Air 05/13/17 06:27 36.3 63 22 159/91 (113) 98 Room Air 05/13/17 04:00 Room Air 05/13/17 03:40 36.6 57 18 159/85 (109) 99 Room Air 05/13/17 00:00 Room Air 05/12/17 23:10 36.8 81 18 159/96 (117) 99 Room Air 05/12/17 20:00 Room Air 05/12/17 19:33 36.6 81 18 137/82 (100) 97 Room Air Lab Results: Results Past 24 Hours Test 05/13/17 06:20 Range/Units White Blood Count 5.44 4.8-10.8 K/uL Red Blood Count 4.29 4.7-6.1 M/uL Hemoglobin 13.8 14.0-18.0 g/dL Hematocrit 40.0 42-52 % Mean Corpuscular Volume 93.2 80-100 fL Mean Corpuscular Hemoglobin 32.2 25-34 pg Mean Corpuscular Hemoglobin Concent 34.5 32-36 g/dl RDW Standard Deviation 46.1 36.4-46.3 fL RDW Coefficient of Variation 13.5 11.5-14.5 % Platelet Count 114 130-400 K/uL Mean Platelet Volume 10.3 7.4-10.4 fL Sodium Level 141 136-145 mmol/L Potassium Level 3.5 3.5-5.1 mmol/L Chloride Level 107 98-107 mmol/L Carbon Dioxide Level 28 21-32 mmol/L Anion Gap 6.0 3-11 mmol/L Blood Urea Nitrogen 7 7-18 mg/dl Creatinine 0.88 0.60-1.40 mg/dl Est Creatinine Clear Calc Drug Dose 85.4 ml/min Estimated GFR () 114.5 Estimated GFR (Non- 98.8 BUN/Creatinine Ratio 7.9 10-20 Random Glucose 113 70-99 mg/dl Calcium Level 8.3 8.5-10.1 mg/dl Phosphorus Level 2.9 2.5-4.9 mg/dl Magnesium Level 1.5 1.8-2.4 mg/dl Total Bilirubin 0.5 0.2-1 mg/dl Direct Bilirubin 0.2 0-0.2 mg/dl Aspartate Amino Transf (AST/SGOT) 74 15-37 U/L Alanine Aminotransferase (ALT/SGPT) 112 12-78 U/L Alkaline Phosphatase 106 45-117 U/L Total Protein 6.5 6.4-8.2 gm/dl Albumin 2.9 3.4-5.0 gm/dl
--- NOTE | 2017-05-13 16:38 | PROGRESS NOTE ---
DATE: 05/13/2017 Mr. Patino looks back to what I assume is his baseline today. He is awake, alert, oriented. 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 He is not as tremulous today and he admits that he has a problem with alcohol, but is little reticent to discuss this any further despite my attempts to bring this out. No seizure activity has been seen. EEG is the most mildly slow without any seizure patterns and again I think this is an ethanol related seizure, possibly withdrawal as his level was low, but possibly due to the chronic effects of alcohol use, which he certainly has had over the years and he already has hepatic injury, hematologic issues, etc. Right now the Neurontin protocol is being used. I would continue it but after it is completed, I would not commit this man to anticonvulsants unless he would have a seizure unequivocally associated with issues unrelated to alcohol and so far this is not the case. He really does not need to be seen by neurology after discharge as unless we would treat him with anticonvlsants, we do not have much to offer and hopefully he will develop some insight into his problem and at least cut down his ethanol consumption if at all possible. Neurology therefore is going to sign off but would be happy to take a look at him again if issues arise while he is still here in the hospital. MELISSA
[2017-05-13] MEDS: CLONIDINE HCL 0.1 MG TAB PO SCH (20:38)
[2017-05-13] MEDS ORDERED: GABAPENTIN 600MG Q24H DOSE PO SCH (22:00)
[2017-05-14 07:30] VITALS: BP 162/90; PULSE 65; TEMP 36.7; O2SAT 96
[2017-05-14] MEDS: CLONIDINE HCL 0.1 MG TAB PO SCH ×2 (08:14→20:50)
[2017-05-14] MEDS: THIAMINE HCL 100 MG TAB PO SCH (08:44)
--- NOTE | 2017-05-14 14:49 | Progress Note ---
Internal Med Progress Note Date of Service: May 14, 2017. Provider Documentation: SUBJECTIVE: The patient was seen and examined H/O Alcoholism and admitted with possible seizure Confused and gets agitated at times and starts hitting Nursing members No more Aggressive behavior Remains stable with High BP 05/13/17 Clinically a lot better No more withdrawal symptoms BP is reasonable 05/14 Wants to go home Ambulating well OBJECTIVE: Vital Signs-as noted below Exam: General-No distress at rest No more confusion No Tremors Eyes-Normal with impaired vision ENT-normal Neck-supple Lungs-clear to ausucltate bilaterally Heart-Regular,no murmur Abdomen-Benign,no masses Extremities-No edema Neuro-AA Drowsy during my exam Lab data as noted below. ASSESSMENT & PLAN: ALCOHOL ABUSE POSSIBLE SEIZURE -Present with symptoms like seizure - No seizure activity since admission -no withdrawal symptoms on admission -EEG --No evidence of Epilepsy -Appreciate Neurology input and signed out -No more seizures Alcohol withdrawal -resolved -showing symptoms of withdrawal -has been on Banana Bag infusion,Gabapentin and Ativan as per Withdrawal protocol -Agitated at times -required Restraints -Suggest outpatient rehab to aid in ETOH abstinence -Now under one to one observation -Clinically improved -transfer to [place] PT/OT /social service Likely discharge tomorrow ECHO DONE * The left ventricular wall motion is normal. * There is mild concentric left ventricular hypertrophy. * Left ventricular systolic function is normal. * Ejection Fraction = 55-60%. * The aortic valve is not sufficiently visualized to determined the number of cusps. The aortic valve is mildly calcified. * There is no significant aortic regurgitation. * Aortic stenosis is absent. * Grade I diastolic dysfunction, (abnormal relaxation pattern). * The interatrial septum is intact with no evidence for an atrial septal defect demonstrated with the administration of agitated saline contrast. Abnormal CT of the Head -appreciate Neurology input - MRI of the head showed no evidence for acute ischemic insult. - MRA head showed no significant stenosis, aneurysm, or occlusion - MRA Neck showed unremarkable MR angiogram of the neck noting a motion compromised examination. -neurology signed out ELEVATED LFT Possible related to alcohol U/S showed Fatty infiltration of liver. Normal caliber bile ducts. Trace amount of gallbladder sludge. Acute Hep, DOLORES, AMA, ASMA, SPEP, ceruloplasmin, alpha 1, TTG IGA pending Gastro on board-appreciate input continue monitor liver enzymes THROMBOCYTOPENIA - Due to alcohol - Platelet 76 - continue monitor cbc ELECTROLYTES IMBALANCE-corrected - K replaced - Monitor electrolytes DVT PROPHYLAXIS - SCDs due to thrombocytopenia DISPOSITION EEG pending Consultants: Gastro Neuro Likely discharge tomorrow Vital Signs: Date Time Temp Pulse Resp B/P (MAP) Pulse Ox O2 Delivery O2 Flow Rate FiO2 05/14/17 08:00 Room Air 05/14/17 07:30 36.7 65 14 162/90 (114) 96 Room Air 05/14/17 00:00 Room Air 05/13/17 20:00 Room Air 05/13/17 16:30 100 Room Air 05/13/17 16:00 Room Air 05/13/17 15:47 36.8 57 16 100 05/13/17 15:39 36.8 57 16 170/87 (114) 100 Room Air
[2017-05-14 17:11] VITALS: BP 163/88; PULSE 67; TEMP 36.6; O2SAT 99
[2017-05-15 00:17] VITALS: BP 146/84; PULSE 61; TEMP 36.7; O2SAT 99
[2017-05-15 05:50] LABS: HEMATOCRIT 39.8 % (42-52); MEAN CELL VOLUME 93.4 fL (80-100); MEAN CORPUSCULAR HEMOGLOBIN 32.6 pg (25-34); MEAN CORPUSCULAR HGB CONC 34.9 g/dl (32-36); MEAN PLATELET VOLUME 10.5 fL (7.4-10.4); PLATELET COUNT 133 K/uL (130-400); RED BLOOD COUNT 4.26 M/uL (4.7-6.1); WHITE BLOOD COUNT 5.31 K/uL (4.8-10.8)
[2017-05-15 06:20] LABS: BUN/CREATININE RATIO 9.2 (10-20); CALCIUM 9.2 mg/dl (8.5-10.1); CREATININE 0.96 mg/dl (0.60-1.40); MAGNESIUM 1.5 mg/dl (1.8-2.4); POTASSIUM 4.2 mmol/L (3.5-5.1)
[2017-05-15 07:35] VITALS: BP 131/78; PULSE 64; TEMP 36.8; O2SAT 99
[2017-05-15] MEDS: CLONIDINE HCL 0.1 MG TAB PO SCH (08:12)
[2017-05-15] MEDS: THIAMINE HCL 100 MG TAB PO SCH (08:12)
[2017-05-15 10:36] VITALS: BP 131/78; PULSE 64; TEMP 36.8; O2SAT 99
--- NOTE | 2017-05-15 11:30 | Progress Note ---
Internal Med Progress Note Date of Service: May 15, 2017. Provider Documentation: SUBJECTIVE: The patient was seen and examined H/O Alcoholism and admitted with possible seizure Confused and gets agitated at times and starts hitting Nursing members No more Aggressive behavior Remains stable with High BP Denies any more symptoms Wants to go home Did not want to have follow up with AA now OBJECTIVE: Vital Signs-as noted below Exam: General-No distress at rest No more confusion No Tremors Eyes-Normal with impaired vision ENT-normal Neck-supple Lungs-clear to ausucltate bilaterally Heart-Regular,no murmur Abdomen-Benign,no masses Extremities-No edema Neuro-AAOx3 No focal neuro deficit No problem with ambulation Lab data as noted below. ASSESSMENT & PLAN: ALCOHOL ABUSE POSSIBLE SEIZURE -Present with symptoms like seizure - No seizure activity since admission -no withdrawal symptoms on admission -EEG --No evidence of Epilepsy -Appreciate Neurology input and signed out -No more seizures -Will need Alcohol Anonymous involvement for continued care Alcohol withdrawal -resolved -showing symptoms of withdrawal -has been on Banana Bag infusion,Gabapentin and Ativan as per Withdrawal protocol -Agitated at times -required Restraints -Suggest outpatient rehab to aid in ETOH abstinence -Now under one to one observation -Clinically improved -transfer to [place] PT/OT /social service Discharge today ECHO DONE * The left ventricular wall motion is normal. * There is mild concentric left ventricular hypertrophy. * Left ventricular systolic function is normal. * Ejection Fraction = 55-60%. * The aortic valve is not sufficiently visualized to determined the number of cusps. The aortic valve is mildly calcified. * There is no significant aortic regurgitation. * Aortic stenosis is absent. * Grade I diastolic dysfunction, (abnormal relaxation pattern). * The interatrial septum is intact with no evidence for an atrial septal defect demonstrated with the administration of agitated saline contrast. Abnormal CT of the Head -appreciate Neurology input - MRI of the head showed no evidence for acute ischemic insult. - MRA head showed no significant stenosis, aneurysm, or occlusion - MRA Neck showed unremarkable MR angiogram of the neck noting a motion compromised examination. -neurology signed out ELEVATED LFT Possible related to alcohol U/S showed Fatty infiltration of liver. Normal caliber bile ducts. Trace amount of gallbladder sludge. Acute Hep, DOLORES, AMA, ASMA, SPEP, ceruloplasmin, alpha 1, TTG IGA pending Gastro on board-appreciate input continue monitor liver enzymes THROMBOCYTOPENIA - Due to alcohol - Platelet 76 - continue monitor cbc-Improved ELECTROLYTES IMBALANCE-corrected - K replaced - Monitor electrolytes DVT PROPHYLAXIS - SCDs due to thrombocytopenia DISPOSITION EEG pending Consultants: Gastro Neuro Discharge today-denied any AA recommendation Vital Signs: Date Time Temp Pulse Resp B/P (MAP) Pulse Ox O2 Delivery O2 Flow Rate FiO2 05/15/17 10:36 36.8 64 20 99 Room Air 05/15/17 09:50 Room Air 05/15/17 07:35 36.8 64 20 131/78 (95) 99 Room Air 05/15/17 00:17 36.7 61 19 146/84 (104) 99 Room Air 05/15/17 00:05 Room Air 05/14/17 20:05 Room Air 05/14/17 17:11 36.6 67 17 163/88 (113) 99 05/14/17 16:00 Room Air Lab Results: Results Past 24 Hours Test 05/15/17 05:29 Range/Units White Blood Count 5.31 4.8-10.8 K/uL Red Blood Count 4.26 4.7-6.1 M/uL Hemoglobin 13.9 14.0-18.0 g/dL Hematocrit 39.8 42-52 % Mean Corpuscular Volume 93.4 80-100 fL Mean Corpuscular Hemoglobin 32.6 25-34 pg Mean Corpuscular Hemoglobin Concent 34.9 32-36 g/dl RDW Standard Deviation 46.0 36.4-46.3 fL RDW Coefficient of Variation 13.5 11.5-14.5 % Platelet Count 133 130-400 K/uL Mean Platelet Volume 10.5 7.4-10.4 fL Sodium Level 139 136-145 mmol/L Potassium Level 4.2 3.5-5.1 mmol/L Chloride Level 104 98-107 mmol/L Carbon Dioxide Level 30 21-32 mmol/L Anion Gap 5.0 3-11 mmol/L Blood Urea Nitrogen 9 7-18 mg/dl Creatinine 0.96 0.60-1.40 mg/dl Est Creatinine Clear Calc Drug Dose 78.3 ml/min Estimated GFR () 104.9 Estimated GFR (Non- 90.5 BUN/Creatinine Ratio 9.2 10-20 Random Glucose 93 70-99 mg/dl Calcium Level 9.2 8.5-10.1 mg/dl Magnesium Level 1.5 1.8-2.4 mg/dl Total Bilirubin 0.6 0.2-1 mg/dl Direct Bilirubin 0.2 0-0.2 mg/dl Aspartate Amino Transf (AST/SGOT) 51 15-37 U/L Alanine Aminotransferase (ALT/SGPT) 98 12-78 U/L Alkaline Phosphatase 87 45-117 U/L Total Protein 6.7 6.4-8.2 gm/dl Albumin 3.0 3.4-5.0 gm/dl
[2017-05-15] MEDS ORDERED: FLV1 PO (14:02)
[2017-05-15] MEDS ORDERED: CTP1 PO (14:02)
[2017-05-15] MEDS ORDERED: THM100 PO (14:02)
--- NOTE | 2017-05-15 14:04 | Discharge Instructions ---
Discharge Instructions Date of Service May 15, 2017. Admission Reason for Admission: Seizure Discharge Discharge Diagnosis / Problem: Alcohol abuse with withdrawal symptoms , Hypertension Discharge Goals Goal(s): Prevent Disease Progression Activity Recommendations Activity Limitations: resume your previous activity . Instructions / Follow-Up Instructions / Follow-Up Dr Laboy on 05/18/17 at 10:05 AM. Strongly advised not to drink Alcohol any more. Current Hospital Diet Patient's current hospital diet: Regular Diet Discharge Diet Recommended Diet: Regular Diet Pending Studies Studies pending at discharge: no Laboratory Results Hemoglobin A1c Test 05/09/17 19:33 Range/Units Estimated Average Glucose 103 mg/dl Hemoglobin A1c 5.2 4.5-5.6 % Lipid Panel Test 05/10/17 07:30 Range/Units Triglycerides Level 49 0-150 mg/dl Cholesterol Level 174 0-200 mg/dl HDL Cholesterol 113 mg/dl Cholesterol/HDL Ratio 1.5 LDL Cholesterol, Calculated 51 mg/dl Medical Emergencies . Who to Call and When: Medical Emergencies: If at any time you feel your situation is an emergency, please call 911 immediately. . Non-Emergent Contact Non-Emergency issues call your: Primary Care Provider . Past History Medical & Surgical History: (1) Renal calculi (2) Alcohol abuse (3) S/P lens implant . "Provider Documentation" section prepared by Jessica Padron. . VTE Core Measure Inpt VTE Proph given/why not?: SCD's
--- NOTE | 2017-05-16 12:18 | Discharge Summary ---
Discharge Summary Date of Service May 16, 2017. Discharge Summary Admission Date: May 09, 2017 at 20:35 Discharge Date: May 15, 2017 Principal Diagnosis: Alcohol abuse with withdrawal symptoms ,Hypertension Secondary Diagnoses/Problems: Please see H&P and Hospital Progress note Consultations: Gastro Neuro Medication Reconciliation New Medications: Clonidine HCl (Clonidine HCl) 0.1 Mg Tab 0.1 MG PO BID for 30 Days, #60 TAB Folic Acid (Folic Acid) 1 Mg Tab 1 MG PO QAM for 30 Days, #30 TAB Thiamine HCl (Vitamin B-1) 100 Mg Tab 100 MG PO QAM for 30 Days, #30 TAB Admission Information HPI (per Admitting provider): 51 year old male who presents to the ER with seizure like activity. History is limited from the patient. With the patient's permission, I spoke with his landlord, Daniel Chapin who provided some information. Daniel was not present with the patient during the seizure like activity but reported to me what was passed onto him. Patient sitting in a chair drinking a beer when his eyes rolled back in his head and his head went backwards. His whole body became stiff and his hands clenched crushing the can that was in his hand. It is unknown how long this episode lasted. EMS was called and it was reported that the patient was confused. There was no loss of bowel or bladder control. No vomiting or tongues biting. Patient reports he currently feels well with the exception of a mild frontal headache. Patient reports he only drinks a 6 pack of beer every 2 days however Daniel reported to me that intake is much higher than that. Patient reports his last drink was last night around 9pm. He denies alcohol withdrawal or seizures in the past. He reports he has been feeling well recently. No chest pain, shortness of breath, or palpitations. He denies visual changes, unilateral weakness, numbness or tingling. No slurred speech or difficulty swallowing. He denies abdominal pain, nausea, vomiting, or diarrhea. No fever or chills. He denies urinary symptoms. In the ED, patient's head CT is showing possible BL occipital lobe subacute infarcts. Labs show a mild hyponatremia, elevated LFTs, hypomagnesemia, and thrombocytopenia. Patient was given ASA, IV Mg+ replacement, and banana bag, Past Medical/Surgical History Medical Problems: (1) Alcohol abuse Status: Chronic (2) Renal calculi Status: Chronic Surgical Problems: (1) S/P lens implant Status: Chronic Family History Patient reports no known family medical history. Social History Smoking Status: Never Smoker Smokeless Tobacco Use: 1 can/week Alcohol Use: patient reports 6 pack/2 days however landlord reports his intake is much higher Housing status: lives alone Multi-Drug Resistant Organisms History of MDRO: No Allergies Coded Allergies: No Known Allergies (Unverified , 05/09/17) Review of Systems ROS per HPI, all other systems reviewed and negative Physical Ex - H&P Physical Exam Vital Signs Date Time Temp Pulse Resp B/P (MAP) Pulse Ox O2 Delivery O2 Flow Rate FiO2 05/09/17 21:49 37.0 103 18 166/99 97 Room Air 05/09/17 20:56 91 18 134/89 97 Room Air 05/09/17 19:36 90 18 158/76 97 Room Air 05/09/17 18:24 97 Room Air 05/09/17 18:24 97 Room Air 05/09/17 18:02 36.9 106 20 159/98 96 Room Air 05/09/17 17:59 114 General Appearance: no apparent distress Head: normocephalic Eyes: + pertinent finding (pupils non reactive to light secondary to prior lens surgery; involuntary eye movement noted - patient reports chronic since prior eye surgery) ENT: hearing grossly normal Neck: supple, no JVD Respiratory/Chest: lungs clear, normal breath sounds, no respiratory distress Cardiovascular: regular rate, rhythm, no edema, normal peripheral pulses Abdomen/GI: normal bowel sounds, non tender, soft Extremities/Musculoskelatal: normal inspection, no calf tenderness Neurologic/Psych: alert, oriented x 3, + pertinent finding (mild tremor noted; also has some difficulty following instructions to preform neuro exam, however no gross focal deficits noted) Skin: normal color, warm/dry Diagnostics - H&P Diagnostics Laboratory Results Results Past 24 Hours Test 05/09/17 18:24 05/09/17 18:29 05/09/17 18:39 05/09/17 19:33 Range/Units Ethyl Alcohol mg/dL < 3.0 0-3 mg/dl Prothrombin Time 11.3 9.0-12.0 SECONDS Prothromb Time International Ratio 1.1 0.9-1.1 Activated Partial Thromboplast Time 26.0 21.0-31.0 SECONDS Partial Thromboplastin Ratio 1.0 Sodium Level 130 136-145 mmol/L Potassium Level 3.6 3.5-5.1 mmol/L Chloride Level 94 98-107 mmol/L Carbon Dioxide Level 22 21-32 mmol/L Anion Gap 14.0 3-11 mmol/L Blood Urea Nitrogen 9 7-18 mg/dl Creatinine 1.10 0.60-1.40 mg/dl Est Creatinine Clear Calc Drug Dose 68.3 ml/min Estimated GFR () 89.0 Estimated GFR (Non- 76.8 BUN/Creatinine Ratio 8.5 10-20 Random Glucose 145 70-99 mg/dl Calcium Level 10.0 8.5-10.1 mg/dl Phosphorus Level 2.1 2.5-4.9 mg/dl Magnesium Level 1.5 1.8-2.4 mg/dl Total Bilirubin 1.5 0.2-1 mg/dl Direct Bilirubin 0.7 0-0.2 mg/dl Aspartate Amino Transf (AST/SGOT) 228 15-37 U/L Alanine Aminotransferase (ALT/SGPT) 195 12-78 U/L Alkaline Phosphatase 119 45-117 U/L Ammonia 45.0 11-32 umol/L Troponin I < 0.015 0-0.045 ng/ml Total Protein 7.6 6.4-8.2 gm/dl Albumin 3.6 3.4-5.0 gm/dl Thyroid Stimulating Hormone (TSH) 1.370 0.300-4.500 uIu/ml White Blood Count 7.20 4.8-10.8 K/uL Red Blood Count 4.46 4.7-6.1 M/uL Hemoglobin 14.2 14.0-18.0 g/dL Hematocrit 40.3 42-52 % Mean Corpuscular Volume 90.4 80-100 fL Mean Corpuscular Hemoglobin 31.8 25-34 pg Mean Corpuscular Hemoglobin Concent 35.2 32-36 g/dl Platelet Count 81 130-400 K/uL Mean Platelet Volume 10.9 7.4-10.4 fL Neutrophils (%) (Auto) 81.3 % Lymphocytes (%) (Auto) 7.2 % Monocytes (%) (Auto) 10.8 % Eosinophils (%) (Auto) 0.1 % Basophils (%) (Auto) 0.3 % Neutrophils # (Auto) 5.85 1.4-6.5 K/uL Lymphocytes # (Auto) 0.52 1.2-3.4 K/uL Monocytes # (Auto) 0.78 0.11-0.59 K/uL Eosinophils # (Auto) 0.01 0-0.5 K/uL Basophils # (Auto) 0.02 0-0.2 K/uL RDW Standard Deviation 44.4 36.4-46.3 fL RDW Coefficient of Variation 13.4 11.5-14.5 % Immature Granulocyte % (Auto) 0.3 % Immature Granulocyte # (Auto) 0.02 0.00-0.02 K/uL Platelet Estimate DECREASED Red Blood Cell Morphology Unremarkable Diagnostic Radiology CT Head Impression: Potential subacute infarcts of the right and to lesser extent left occipital lobes. No acute intracranial hemorrhage. CXR IMPRESSION: Negative chest. CT C SPINE IMPRESSION: Moderate degenerative change. No acute process. Impression - H&P Impression Assessment and Plan POSSIBLE SEIZURE ALCOHOL ABUSE - admit to tele - history difficult to obtain from patient; however per patient's landlord who spoke to the person who witness the patient's event - while he drinking a beer, his eyes rolled back into, his head tilted back, and he became stiff all over and was subsequently confused - unknown for how long episode lasted - patient has history of heavy alcohol abuse and suspect this contributed to the possible seizure - case discussed with Dr. Meehan - will start patient on Gabapentin ETOH withdrawal protocol which can be utilized as an antiepileptic for now; no need to add Keppra - EEG, brain MRI, seizure precautions - daily banana bag, PRN Ativan per protocol ? SUBACUTE BL OCCIPITAL INFARCTS - noted on CT head - no gross focal deficits notes - brain MRI/MRA, neck MRA, echo - s/p ASA in the ED, however will not continue due to thrombocytopenia - will not start statin due to elevated LFTs ELEVATED LFTS, THROMBOCYTOPENIA - suspect ETOH cirrhosis - check liver US - GI consult - platelets 81, no signs of bleeding HYPOMAGNESEMIA, HYPOPHOSPHATEMIA - replace, follow up labs in AM DVT PROPHYLAXIS - SCDs due to thrombocytopenia DISPO - In my clinical judgment this beneficiary meets acute admission criteria, established by [facility], that includes being hospitalized through two midnights. Advanced Directives Existing Living Will: No Existing Power of Allergy And Immunology Specialist: No VTE Prophylaxis VTE Risk Assessment Done? Y/N: Yes Risk Level: Moderate Note ATTENDING ADDENDUM Record reviewed. Patient interviewed and examined. Care coordinated with EDUARDO Barba. Please refer to her documentation for patient's history. Briefly, 51 YO male with history of alcohol consumption (exact amount uncertain ) with apparent seizure. No prior history of seizures. No trauma. EXAM: General- no distress VS- as noted HEENT- anicteric Neck- supple Lungs- clear Heart- RRR Abdomen- + BS, soft, nontender Extremities- no pretibial edema or calf tenderness Neuro- alert, oriented; left esotropia (chronic); nystagmus (chronic); no facial palsy; motor strength upper and lower extremities intact; plantar reflexes downgoing DATA: Lab studies as noted. Head CT- ? subacute bilateral occipital strokes ASSESSMENT AND PLAN: Apparent new onset seizure, ? due to alcohol withdrawal. ? subacute ischemic strokes per CT- check MRI. Elevated LFT's- probably due to alcoholic hepatitis. Check US. Suspected alcohol abuse- thiamine, MVI, gabapentin, counseling. Please refer to DEBORAH Escalante's documentation for discussion of other issues. Fabian Nunes MD . Physical Exam (per Admitting): General Appearance: no apparent distress Head: normocephalic Eyes: + pertinent finding (pupils non reactive to light secondary to prior lens surgery; involuntary eye movement noted - patient reports chronic since prior eye surgery) ENT: hearing grossly normal Neck: supple, no JVD Respiratory/Chest: lungs clear, normal breath sounds, no respiratory distress Cardiovascular: regular rate, rhythm, no edema, normal peripheral pulses Abdomen/GI: normal bowel sounds, non tender, soft Extremities/Musculoskelatal: normal inspection, no calf tenderness Neurologic/Psych: alert, oriented x 3, + pertinent finding (mild tremor noted; also has some difficulty following instructions to preform neuro exam, however no gross focal deficits noted) Skin: normal color, warm/dry Hospital Course ALCOHOL ABUSE POSSIBLE SEIZURE -Present with symptoms like seizure - No seizure activity since admission -no withdrawal symptoms on admission -EEG --No evidence of Epilepsy -Appreciate Neurology input and signed out -No more seizures -Will need Alcohol Anonymous involvement for continued care Alcohol withdrawal -resolved -showing symptoms of withdrawal -has been on Banana Bag infusion,Gabapentin and Ativan as per Withdrawal protocol -Agitated at times -required Restraints -Suggest outpatient rehab to aid in ETOH abstinence -Now under one to one observation -Clinically improved -transfer to [place] PT/OT /social service Discharge today ECHO DONE * The left ventricular wall motion is normal. * There is mild concentric left ventricular hypertrophy. * Left ventricular systolic function is normal. * Ejection Fraction = 55-60%. * The aortic valve is not sufficiently visualized to determined the number of cusps. The aortic valve is mildly calcified. * There is no significant aortic regurgitation. * Aortic stenosis is absent. * Grade I diastolic dysfunction, (abnormal relaxation pattern). * The interatrial septum is intact with no evidence for an atrial septal defect demonstrated with the administration of agitated saline contrast. Abnormal CT of the Head -appreciate Neurology input - MRI of the head showed no evidence for acute ischemic insult. - MRA head showed no significant stenosis, aneurysm, or occlusion - MRA Neck showed unremarkable MR angiogram of the neck noting a motion compromised examination. -neurology signed out ELEVATED LFT Possible related to alcohol U/S showed Fatty infiltration of liver. Normal caliber bile ducts. Trace amount of gallbladder sludge. Acute Hep, DOLORES, AMA, ASMA, SPEP, ceruloplasmin, alpha 1, TTG IGA pending Gastro on board-appreciate input continue monitor liver enzymes THROMBOCYTOPENIA - Due to alcohol - Platelet 76 - continue monitor cbc-Improved ELECTROLYTES IMBALANCE-corrected - K replaced - Monitor electrolytes DVT PROPHYLAXIS - SCDs due to thrombocytopenia DISPOSITION EEG pending Consultants: Gastro Neuro Discharge today-denied any AA recommendation Total time spent on discharge = 35 minutes This includes examination of the patient, discharge planning, medication reconciliation, and communication with other providers. Discharge Instructions Date of Service May 15, 2017. Admission Reason for Admission: Seizure Discharge Discharge Diagnosis / Problem: Alcohol abuse with withdrawal symptoms , Hypertension Discharge Goals Goal(s): Prevent Disease Progression Activity Recommendations Activity Limitations: resume your previous activity . Instructions / Follow-Up Instructions / Follow-Up Dr Laboy on 05/18/17 at 10:05 AM. Strongly advised not to drink Alcohol any more. Current Hospital Diet Patient's current hospital diet: Regular Diet Discharge Diet Recommended Diet: Regular Diet Pending Studies Studies pending at discharge: no Laboratory Results Hemoglobin A1c Test 05/09/17 19:33 Range/Units Estimated Average Glucose 103 mg/dl Hemoglobin A1c 5.2 4.5-5.6 % Lipid Panel Test 05/10/17 07:30 Range/Units Triglycerides Level 49 0-150 mg/dl Cholesterol Level 174 0-200 mg/dl HDL Cholesterol 113 mg/dl Cholesterol/HDL Ratio 1.5 LDL Cholesterol, Calculated 51 mg/dl Medical Emergencies . Who to Call and When: Medical Emergencies: If at any time you feel your situation is an emergency, please call 911 immediately. . Non-Emergent Contact Non-Emergency issues call your: Primary Care Provider . Past History Medical & Surgical History: (1) Renal calculi (2) Alcohol abuse (3) S/P lens implant . "Provider Documentation" section prepared by Jessica Padron. . VTE Core Measure Inpt VTE Proph given/why not?: SCD's <Electronically signed by Jessica Padron M.D.> Additional Copies To Faisal Laboy M.D.
== END 2017-05-15 15:26 | disposition home or self-care (01) | DRG 897 ==
LOC: EDBD 17:50 → C.EDC 17:51 → C.2T 20:35 → ENRESERV 20:45 → C.MED 05-13 14:55 → ENRESERV 05-13 15:29 → C.MED 05-13 17:55
PROVIDERS: ADMIT Hospitalist; ATTEND Internal Medicine
DX: F10.231 Alcohol dependence with withdrawal delirium (principal); G93.1 Anoxic brain damage, not elsewhere classified; K70.30 Alcoholic cirrhosis of liver without ascites; E83.42 Hypomagnesemia; E83.39 Other disorders of phosphorus metabolism; D69.6 Thrombocytopenia, unspecified; I10 Essential (primary) hypertension; F17.220 Nicotine dependence, chewing tobacco, uncomplicated

== ENCOUNTER 2020-02-26 16:36 | Inpatient (IN) ==
[2020-02-26] MEDS ORDERED: SODIUM CHLORIDE 0.9% 1000ML 1,000 ML IV SCH (18:15)
--- NOTE | 2020-02-26 18:17 | Emergency Department Note ---
Impression & Plan Stroke-like symptoms ED Provider Note NAME: MOY CRABTREE AGE: 54 SEX: M ARRIVES VIA: Walk-In INFORMANT: [Patient]Friend ED PROVIDER(S): Fabian Jay MD CHIEF COMPLAINT: Stroke symptoms PLAN: Disposition: Admitted Condition: [Good] MEDICAL DECISION MAKING: Patient presented with strokelike symptoms. He did have a facial droop complaint of left arm weakness. CT imaging did not reveal any acute findings. CT angiography revealed chronic and developmental changes but again no acute aneurysm or dissection. No obvious vessel cutoff. CBC and chemistry panel were unremarkable. The patient's ECG was unremarkable. He did have a significant elevation of his alcohol level. He was monitored. The patient will need further evaluation and management in the hospital given the strokelike symptoms as well as his alcohol intoxication. Consultation was made with the hospitalist service. He was evaluated in the ER for further management. Triage Nursing notes reviewed and agree them. [Additional history obtained from] patient's friend Vital Signs: reviewed and remarkable for mild hypertension Differential diagnosis: Infection, dehydration, metabolic abnormality, hypo/hyperglycemia, electrolyte disturbance, anemia, hypoxia, cardiac sources, intracerebral event, toxicologic, neurologic, as well as other pathologies. ER treatment provided: Normal saline hydration Banana bag IV Diagnostics interpreted by me: ECG:Rate:85 Rhythm:Normal sinus [place]:Normal QRS:Normal ST segements:No elevation or depression Other:No PACs or PVCs Cardiac Monitoring: Cardiac monitoring ordered by me: The patient was placed on continuous cardiac monitoring and observed. It revealed a normal sinus rhythm at 92 beats per minute without ectopy or evidence of dysrhythmia. Laboratory studies: [See below] an unremarkable CBC, chemistry panel, troponin, magnesium, and CK- MB. Alcohol level markedly elevated at 0.323. Imaging studies: Chest x-ray. Findings: A chest x-ray was performed and revealed no pneumothorax, effusion, infiltrate, pulmonary edema, free air under the diaphragm, or wide mediastinum. Impression: No acute disease. Consultation(s): Stephen hospitalist HPI: The patient is a 54 year old male who presents to the Emergency Room with complaints of slurred speech . This started 2 days ago and is persistent. The patient also notes the following associated symptoms, fall one week ago, left facial droop, left arm weakness,and alcohol use. The patient has taken no medication relieving factors. Current pain is rated as 0/10. Pt denies LOC, headache, fevers, chills, diaphoresis, visual changes, neck pain, chest pain, breathing difficulties, nausea, vomiting, abdominal pain, back pain, melena, hematochezia, urinary symptoms, numbness, lymphadenopathy, rash, or other complaints. ROS: See above HPI for pertinent positives & negatives. A total of [10] systems reviewed and were otherwise negative. PAST MEDICAL HISTORY:[See Below] Alcohol abuse PAST SURGICAL HISTORY:[See Below] FAMILY HISTORY:[See Below] SOCIAL HISTORY:[See Below]+etoh HOME MEDICATIONS:[See Below] ALLERGIES:[See Below] VITALS:[See Below] PHYSICAL EXAMINATION: GENERAL: Awake, alert, tired appearing, no distress HENT: Normocephalic, atraumatic. TM's normal. Oropharynx unremarkable. EYES: PERRL. EOMI. Normal conjunctiva. Sclera non-icteric. NECK: Supple. Normal inspection. Non-tender. No nuchal rigidity. FROM. No bruit. RESPIRATORY: Breath sounds equal. No wheezes. No rhonchi. Normal respiratory effort. CARDIAC: Normal rate. Regular rhythm. No murmurs. No rubs. No JVD. GI: Soft, non distended. No tenderness to palpation. No rebound or guarding. No masses. RECTAL: Deferred. MUSCULOSKELETAL: Unremarkable except abrasion on the left elbow. No edema. No discoloration. Gross motor strength symmetric. NEURO: Cooperative. Cranial nerves 2-12 grossly intact except left facial droop. Lateral nystagmus present. Mildly altered sensorium. No other focal sensory or motor deficits noted. Speech slurred. No pronator drift. Difficulty with rapid alternating movements. SKIN: No rash or jaundice noted. LYMPH: No adenopathy. ED COURSE: [Critical Care:] [None] Fabian Jay MD Past Med/Surg History Social History Preferred Language: Turkish Communication Ability: Effective [place] Required: No Beliefs That Will Affect Care: None Current Living Situation: Alone Other Information That Helps Us Care for You: No Feels Safe at Home: Yes Safety Concerns: Feels Safe At This Time Smoking Status: Current every day smoker Tobacco Type: cigarettes ; Cigarettes Per Day: LOTS ; Do You Dip or Chew Tobacco: No ; Second Hand Exposure: Yes ; Tobacco Cessation Education Requested by Patient: No Hx Alcohol Use: Yes Alcohol type: beer and hard liquor Hx Substance Use: No Allergies Allergies Allergy/AdvReac Type Severity Reaction Status Date / Time No Known Allergies Allergy Verified 02/26/20 20:00 Home Meds Home Medications Medication Instructions Recorded Confirmed folic acid 1 mg PO DAILY 05/02/18 02/26/20 lisinopril 20 mg PO DAILY 09/13/18 02/26/20 Results & Data (ED) Vital Signs Vital Signs - 24 hr 02/26/20 16:40 02/26/20 18:30 02/26/20 18:54 Temperature 37.1 C Temperature Source Oral Pulse Rate 107 H 95 H 79 Pulse Rate from SpO2 Sensor Respiratory Rate 18 Respiratory Effort / Characteristics Non-Labored Spontaneous Respiratory Depth Normal Respiratory Pattern Regular Blood Pressure 139/79 147/88 H Blood Pressure Mean 99 102 Blood Pressure Position Sitting Pulse Oximetry 96 Oxygen Delivery Method Room Air Sepsis Recent Fever Within 48 Hours No Sepsis New/Unexplained Change in Mental Status No Sepsis Action Taken by Nursing No Action Required 02/26/20 19:00 02/26/20 19:30 02/26/20 19:48 Temperature Temperature Source Pulse Rate Pulse Rate from SpO2 Sensor 88 Respiratory Rate Respiratory Effort / Characteristics Respiratory Depth Respiratory Pattern Blood Pressure 162/95 H 142/87 H Blood Pressure Mean 121 99 Blood Pressure Position Pulse Oximetry 96 Oxygen Delivery Method Sepsis Recent Fever Within 48 Hours Sepsis New/Unexplained Change in Mental Status Sepsis Action Taken by Nursing 02/26/20 20:00 02/26/20 20:01 02/26/20 20:30 Temperature Temperature Source Pulse Rate 84 83 81 Pulse Rate from SpO2 Sensor 84 83 80 Respiratory Rate 14 14 14 Respiratory Effort / Characteristics Respiratory Depth Respiratory Pattern Blood Pressure 131/72 161/98 H Blood Pressure Mean 78 115 Blood Pressure Position Pulse Oximetry 95 95 95 Oxygen Delivery Method Sepsis Recent Fever Within 48 Hours Sepsis New/Unexplained Change in Mental Status Sepsis Action Taken by Nursing 02/26/20 20:31 02/26/20 21:00 02/26/20 21:01 Temperature Temperature Source Pulse Rate 82 78 83 Pulse Rate from SpO2 Sensor 82 79 82 Respiratory Rate 17 27 H 32 H Respiratory Effort / Characteristics Respiratory Depth Respiratory Pattern Blood Pressure 124/81 Blood Pressure Mean 99 Blood Pressure Position Pulse Oximetry 95 93 92 Oxygen Delivery Method Sepsis Recent Fever Within 48 Hours Sepsis New/Unexplained Change in Mental Status Sepsis Action Taken by Nursing Laboratory Data Result diagrams: 02/26/20 18:04 02/26/20 18:04 Lab Results 02/26/20 02/26/20 02/26/20 Range/Units 18:04 18:04 18:04 WBC 7.13 (4.8-10.8) K/uL RBC 4.72 (4.7-6.1) M/uL Hgb 15.1 (14.0-18.0) g/dL Hct 42.8 (42-52) % MCV 90.7 (80-100) fL MCH 32.0 (25-34) pg MCHC 35.3 (32-36) g/dL RDW Std Deviation 45.7 (36.4-46.3) fL RDW Coeff of Martir 13.8 (11.5-14.5) % Plt Count 196 (130-400) K/uL MPV 9.4 (7.4-10.4) fL Immature Gran % (Auto) 0.3 % Neut % (Auto) 46.1 % Lymph % (Auto) 35.5 % [place] % (Auto) 15.4 % Eos % (Auto) 1.0 % Baso % (Auto) 1.7 % Neut # (Auto) 3.29 (1.4-6.5) K/uL Lymph # (Auto) 2.53 (1.2-3.4) K/uL [place] # (Auto) 1.10 H (0.11-0.59) K/uL Eos # (Auto) 0.07 (0-0.5) K/uL Baso # (Auto) 0.12 (0-0.2) K/uL Immature Gran # (Auto) 0.02 (0.00-0.02) K/uL PT 10.1 (9.0-12.0) Seconds INR 1.0 (0.9-1.1) APTT 30.2 (21.0-31.0) Seconds PTT Ratio 1.1 Sodium 136 (136-145) mmol/L Potassium 4.4 (3.5-5.1) mmol/L Chloride 104 (98-107) mmol/L Carbon Dioxide 26 (21-32) mmol/L Anion Gap 6.0 (3-11) BUN 9 (7-18) mg/dl Creatinine 0.92 (0.6-1.4) mg/dl Est Cr Clr Drug Dosing Not Reportable Est GFR ( Amer) 108.1 Est GFR (Non-Af Amer) 93.3 BUN/Creatinine Ratio 9.5 L (10-20) Glucose 94 (70-99) mg/dl Calcium 8.9 (8.5-10.1) mg/dl Magnesium 1.8 (1.8-2.4) mg/dl Total Bilirubin 0.3 (0.2-1) mg/dl AST 34 (15-37) U/L ALT 48 (12-78) U/L Alkaline Phosphatase 93 (45-117) U/L Ammonia (11-32) umol/L CK-MB (CK-2) 2.9 (0.5-3.6) ng/ml Troponin I < 0.015 (0-0.045) ng/ml Total Protein 8.2 (6.4-8.2) gm/dl Albumin 3.6 (3.4-5.0) gm/dl Globulin 4.6 H (2.5-4.0) gm/dl Albumin/Globulin Ratio 0.8 L (0.9-2) Ethyl Alcohol mg/dL (0-3) mg/dl Blood Type Antibody Screen 02/26/20 02/26/20 02/26/20 Range/Units 18:33 18:33 18:37 WBC (4.8-10.8) K/uL RBC (4.7-6.1) M/uL Hgb (14.0-18.0) g/dL Hct (42-52) % MCV (80-100) fL MCH (25-34) pg MCHC (32-36) g/dL RDW Std Deviation (36.4-46.3) fL RDW Coeff of Martir (11.5-14.5) % Plt Count (130-400) K/uL MPV (7.4-10.4) fL Immature Gran % (Auto) % Neut % (Auto) % Lymph % (Auto) % [place] % (Auto) % Eos % (Auto) % Baso % (Auto) % Neut # (Auto) (1.4-6.5) K/uL Lymph # (Auto) (1.2-3.4) K/uL [place] # (Auto) (0.11-0.59) K/uL Eos # (Auto) (0-0.5) K/uL Baso # (Auto) (0-0.2) K/uL Immature Gran # (Auto) (0.00-0.02) K/uL PT (9.0-12.0) Seconds INR (0.9-1.1) APTT (21.0-31.0) Seconds PTT Ratio Sodium (136-145) mmol/L Potassium (3.5-5.1) mmol/L Chloride (98-107) mmol/L Carbon Dioxide (21-32) mmol/L Anion Gap (3-11) BUN (7-18) mg/dl Creatinine (0.6-1.4) mg/dl Est Cr Clr Drug Dosing Est GFR ( Amer) Est GFR (Non-Af Amer) BUN/Creatinine Ratio (10-20) Glucose (70-99) mg/dl Calcium (8.5-10.1) mg/dl Magnesium (1.8-2.4) mg/dl Total Bilirubin (0.2-1) mg/dl AST (15-37) U/L ALT (12-78) U/L Alkaline Phosphatase (45-117) U/L Ammonia 12.5 (11-32) umol/L CK-MB (CK-2) (0.5-3.6) ng/ml Troponin I (0-0.045) ng/ml Total Protein (6.4-8.2) gm/dl Albumin (3.4-5.0) gm/dl Globulin (2.5-4.0) gm/dl Albumin/Globulin Ratio (0.9-2) Ethyl Alcohol mg/dL 323.1 H (0-3) mg/dl Blood Type B Negative Antibody Screen NEGATIVE Administered Medications Sodium Chloride (Nss 1000ml) 1,000 mls @ 80 mls/hr IV .[id number] [facility] Stop: 03/27/20 22:52 Last Admin: 02/27/20 00:08 Dose: 80 mls/hr Documented by: [id number] Thiamine HCl 100 mg/ Syringe 10 mls @ 2 mls/min IV QAM [facility] Stop: 03/28/20 00:00 Last Admin: 02/27/20 00:08 Dose: 2 mls/min Documented by: [id number] Folic Acid 1 mg/ Syringe 10 mls @ 5 mls/min IV QAM [facility] Stop: 03/28/20 00:00 Last Admin: 02/27/20 00:08 Dose: 5 mls/min Documented by: [id number] Discontinued Medications Gabapentin (Neurontin) 1,200 mg PO TODAY@0000 [facility] Stop: 02/27/20 00:01 Last Admin: 02/27/20 00:08 Dose: 1,200 mg Documented by: [id number] Sodium Chloride (Nss 1000ml) 1,000 mls @ 50 mls/hr IV .Q20H [facility] Stop: 03/27/20 18:14 Last Infusion: 02/26/20 22:54 Dose: 0 mls/hr Documented by: [id number] Admin: 02/26/20 18:25 Dose: 50 mls/hr Documented by: [id number] Multivitamins 10 ml/ Thiamine HCl 100 mg/ Folic Acid 1 mg/Sodium Chloride 1,011.2 mls @ 1,011.2 mls/hr IV .Q1H ONE Stop: 02/26/20 20:18 Last Infusion: 02/26/20 21:11 Dose: 0 mls/hr Documented by: [id number] Admin: 02/26/20 19:54 Dose: 1,011.2 mls/hr Documented by: [id number] Ioversol (Optiray 320 125ml) 119 ml IV ONCE PRN PRN Reason: Interaction Checking Stop: 03/01/20 19:42 Last Admin: 02/26/20 19:43 Dose: 119 ml Documented by: [id number] Discharge Plan Visit Data *Final* Discharge Date/Time: 02/26/20 22:20 Chief Complaint: Neuro Symptoms/Deficit Stated Complaint: SLURRED SPEECH,POSSIBLE STROKE ED Provider: Fabian Jay Discharge Problem: Stroke-like symptoms Patient Disposition: Admitted As Inpatient Discharge Instructions Interventions: ED Discharge Assessment Last Done: 02/26/20 22:20
[2020-02-26 18:28] LABS: Basophils # (auto) 0.12 K/uL (0-0.2); Basophils % (auto) 1.7 %; Eosinophils # (auto) 0.07 K/uL (0-0.5); Hematocrit (blood only) 42.8 % (42-52); Hemoglobin 15.1 g/dL (14.0-18.0); Immature Granulocytes # (auto) 0.02 K/uL (0.00-0.02); Immature Granulocytes % (auto) 0.3 %; Lymphocytes # (auto) 2.53 K/uL (1.2-3.4); Lymphocytes % (auto) 35.5 %; Mean Corpuscular Hgb Conc 35.3 g/dL (32-36); Mean Corpuscular Volume 90.7 fL (80-100); Mean Platelet Volume 9.4 fL (7.4-10.4); Monocytes % (auto) 15.4 %; Neutrophils # (auto) 3.29 K/uL (1.4-6.5); Neutrophils % (auto) 46.1 %; Platelet Count 196 K/uL (130-400); RDW Coefficient of Variation 13.8 % (11.5-14.5); RDW Standard Deviation 45.7 fL (36.4-46.3); Red Blood Count 4.72 M/uL (4.7-6.1); White Blood Count 7.13 K/uL (4.8-10.8)
[2020-02-26 18:37] LABS: Partial Thromboplastin Ratio 1.1; Partial Thromboplastin Time 30.2 Seconds (21.0-31.0); Prothrombin Time 10.1 Seconds (9.0-12.0)
[2020-02-26 18:49] LABS: Alanine Aminotransferase 48 U/L (12-78); Albumin Level 3.6 gm/dl (3.4-5.0); Aspartate Aminotransferase 34 U/L (15-37); BUN Creatinine Ratio 9.5 (10-20); Blood Urea Nitrogen 9 mg/dl (7-18); Calcium 8.9 mg/dl (8.5-10.1); Carbon Dioxide 26 mmol/L (21-32); Chloride 104 mmol/L (98-107); Est GFR (African American) 108.1; Est GFR (Non-African American) 93.3; Glucose 94 mg/dl (70-99); Magnesium 1.8 mg/dl (1.8-2.4); Potassium 4.4 mmol/L (3.5-5.1); Sodium 136 mmol/L (136-145)
[2020-02-26 18:54] LABS: Albumin Globulin Ratio 0.8 (0.9-2); Alkaline Phosphatase 93 U/L (45-117); Bilirubin,Total 0.3 mg/dl (0.2-1); Creatine Kinase MB 2.9 ng/ml (0.5-3.6); Globulin 4.6 gm/dl (2.5-4.0); Total Protein 8.2 gm/dl (6.4-8.2); Troponin I < 0.015 ng/ml (0-0.045)
[2020-02-26] MEDS ORDERED: MULTI-VITAMIN INFUSION 10 ML, THIAMINE HCL 100 MG, FOLIC ACID 1 MG in SODIUM CHLORIDE 0... IV ONE (19:19)
--- NOTE | 2020-02-26 19:23 | XRay Report ---
XR chest 1V portable HISTORY: 54 years-old Male stroke acute strokelike symptoms COMPARISON: Chest radiographs 09/13/2018 TECHNIQUE: Portable AP view of the chest FINDINGS: Cardiomediastinal and hilar silhouettes are within normal limits. No pneumothorax or pleural effusion . Previously questioned 1.5 cm nodular opacity of the right midlung is no longer appreciated. Degener ative changes of the shoulders and spine. IMPRESSION: No acute process. ACT 112: Negative or not required by law. The above report was generated using voice recognition software. It may contain grammatical, syntax o r spelling errors. Electronically signed by: Hunter Landrum M.D. 02/26/2020 7:22 PM
[2020-02-26] MEDS ORDERED: OPTIRAY 320 125ml IV PRN (19:43)
--- NOTE | 2020-02-26 19:59 | CT Scan Report ---
CT head/brain wo con CLINICAL HISTORY: 54 years-old Male with Stroke evaluation . Acute strokelike symptoms TECHNIQUE: Multiple axial CT images of the head were obtained without contrast. A dose lowering tech nique was utilized adhering to the principles of ALARA. COMPARISON: CTA head neck of same day, head CT 11/05/2019 FINDINGS: No acute intracranial hemorrhage, midline shift, intracranial mass, hydrocephalus, territorial ischem ia or abnormal extra-axial collection. Cerebral vascular calcifications. Scleral banding of the left globe. The calvarium is intact. Mild mucosal thickening of the left maxillary sinus. Trace mastoid e ffusions. IMPRESSION: No acute intracranial abnormality. ACT 112: Negative or not required by law. The above report was generated using voice recognition software. It may contain grammatical, syntax o r spelling errors. Electronically signed by: Hunter Landrum M.D. 02/26/2020 7:57 PM
--- NOTE | 2020-02-26 20:12 | CT Scan Report ---
CT angio neck with con, CT angio head w con CLINICAL HISTORY: 54 years-old Male with Stroke evaluation. Acute strokelike symptoms COMPARISON STUDY: Head CT of same day TECHNIQUE: Following the IV administration of 119 oh of Optiray 320, CT angiogram of the head and nec k was performed from the aortic arch to the skull apex. Images are reviewed in the axial, sagittal, a nd coronal planes. 3-D MIPS images are created and assessed. IV contrast was administered without com plication. All measurements were calculated based on NASCET criteria. A dose lowering technique was utilized adhering to the principles of ALARA. CT DOSE: 1151.39 mGy.cm FINDINGS: 4 vessel morphology of aortic arch. The imaged subclavian arteries appear patent. The innominate and common carotid arteries are also patent. Mild mixed plaque of the left carotid bulb without significa nt narrowing. Bilateral internal carotid arteries are patent. Moderate calcified plaque of the right cavernous and supraclinoid segments of the internal carotid artery with multifocal areas of at least mild luminal narrowing. The middle and anterior cerebral arteries are patent. The cerebral venous sin uses also are patent. Dominant left vertebral artery emanates strictly from the aortic arch. Calcifie d plaque of the V4 segment left vertebral artery. This results in moderate multifocal luminal narrowi ng. There is high-grade luminal narrowing just proximal to the left PICA origin. The left vertebral a rtery then forms the basilar artery which demonstrates multifocal moderate luminal narrowing. The dev elopmentally diminutive right vertebral artery terminates into the right PICA. Diminutive and patent posterior cerebral arteries. No abnormal intracranial enhancement. Lung apices are clear. No pneumothorax. Soft tissues are unremarkable. No adenopathy. IMPRESSION: 1. 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 2. Diminutive vertebrobasilar system with moderate multifocal luminal narrowing of the basilar artery . 3. No aneurysm, dissection or proximal branch occlusion. ACT 112: Negative or not required by law. The above report was generated using voice recognition software. It may contain grammatical, syntax o r spelling errors. Electronically signed by: Hunter Landrum M.D. 02/26/2020 8:11 PM
[2020-02-26] MEDS ORDERED: GABAPENTIN 1200MG ALCOHOL WITHDRAWAL LOAD PO STA (22:53)
[2020-02-26] MEDS ORDERED: LORazepam 1 MG/2 ML VIAL IV PRN (22:53)
[2020-02-26] MEDS ORDERED: cloNIDine HCL 0.1 MG TAB PO PRN (22:53)
[2020-02-26] MEDS ORDERED: ATIVAN IV ALCOHOL WITHDRAWL IV PRN (22:53)
[2020-02-26] MEDS ORDERED: ACETAMINOPHEN 325 MG TAB PO PRN (22:53)
[2020-02-26] MEDS ORDERED: PHARMACIST DISCHARGE MED REC CONSULT PRN (22:53)
[2020-02-26] MEDS ORDERED: LORazepam 3 MG/6 ML VIAL IV PRN (22:53)
[2020-02-26] MEDS ORDERED: LORazepam 2 MG/4 ML VIAL IV PRN (22:53)
[2020-02-26] MEDS ORDERED: POLYETHYLENE (MIRALAX) 17 GM PACK PO PRN (22:53)
--- NOTE | 2020-02-26 23:44 | History and Physical Report ---
DATE OF ADMISSION: 02/26/2020 CHIEF COMPLAINT: Questionable stroke-like symptoms. HISTORY OF PRESENT ILLNESS: This is a 54-year-old male with past medical history significant for hypertension, alcoholism, history of hard of hearing. He was brought in because of questionable stroke-like symptoms. The patient is having some questionable slurred speech for last 2 days and questionable weakness in the left hand and it is persistent and there is questionable left facial droop. He had a history of falling one week ago and he was brought to the hospital. The patient's alcohol level is more than 300 and he is sleepy. He has some pressured speech, but his speech is okay, can tell his name, can tell his date of , knows the month and year.Denies any chest pain or headache or nausea or belly pain. 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 His initial CT scan and CTA of the head and neck is unremarkable, but he was able to smile and stick his tongue out. Could not appreciate any facial droop. Closed his eyes okay. Strength is okay in his extremities. ALLERGIES: No known drug allergies. PAST MEDICAL HISTORY: As mentioned above. PAST SURGICAL HISTORY: Colonoscopy. MEDICATIONS: Lisinopril 20 mg daily and folic acid 1 mg p.o. daily. FAMILY HISTORY: Significant for mother had breast cancer and heart disease; father had CAD and diabetes; brother has diabetes. SOCIAL HISTORY: Single, lives alone. No smoking. He says he drinks once in a while 6 beers a day. No drug use. REVIEW OF SYSTEMS: As per HPI. Rest of the review of systems could not be obtained at this time. PHYSICAL EXAMINATION: GENERAL: The patient is alert and awake and seemed oriented, somewhat drowsy. VITAL SIGNS: Temperature 37.5, pulse 83, respiratory rate in the 20s, blood pressure 124/81, oxygen 92% on room air. HEENT: No pallor, no icterus. Pupils equal, round, and reactive to light. NECK: No JVD, no neck masses. CARDIOVASCULAR: S1, S2 heard. Regular rate and rhythm, no murmur, no gallop. RESPIRATORY SYSTEM: Normal AP diameter. No accessory muscle use. No wheezing, no crackles. ABDOMEN: Soft, bowel sounds present, nontender. No distention. CENTRAL NERVOUS SYSTEM: Alert and awake, oriented to name. Remote memory intact. Speech is clear. No facial droop appreciated. Power 5/5 in all extremities. Could not complete exam as the patient is noncooperative. EXTREMITIES: No edema, no erythema. LABORATORY DATA: WBC 7.1, hemoglobin 15.1, hematocrit 42.8, platelets 196. PT 10.1, INR 1, APTT 30.2. Sodium 136, potassium 4.4, chloride 104, bicarbonate 26, BUN 9, creatinine 0.9, serum glucose 94, calcium 8.9, magnesium 1.8, total bilirubin 0.3, AST 34, ALT 48, alkaline phosphatase 93, ammonia 12.5. Troponin I less than 0.015. Ethyl alcohol 323. IMAGING DATA: CT of the head, no acute findings. CTA of the head and neck, high-grade luminal narrowing of the distal V4 segment, left vertebral artery. Diminutive vertebrobasilar system with moderate multifocal luminal narrowing of the basilar artery. No aneurysm, dissection, or proximal branch occlusion. Chest x-ray, no acute findings. EKG: Normal sinus rhythm at the rate of 85, no acute ST changes seen. ASSESSMENT AND PLAN: This is a 54-year-old male who presents with questionable stroke-like symptoms. 1. Questionable stroke-like symptoms with some left facial droop and weakness. Currently seems okay. Initial CT of the head and CTA of the head and neck, no acute findings. We will admit to tele. We will do full stroke workup with MRI scan and echo and consult neurology in the a.m. and Speech Therapy and PT and OT in the a.m. and we will examine again when the patient is more sober. 2. History of alcoholism, currently alcohol is 323. We will monitor for withdrawal. We will do gabapentin and iv Ativan prn withdrawal protocol. Received banana bag in the ER. We will place on IV thiamine, IV folic acid, and clonidine p.r.n. 3. Hypertension. Continue his home lisinopril. Monitor the blood pressure. 4. Deep venous thrombosis prophylaxis, sequential compression devices. DISPOSITION: Closely monitor in the tele floor. Level 1 full code. Expect to discharge home and follow with family doctor. MELISSA
[2020-02-27] MEDS ORDERED: GABAPENTIN 600 MG TAB PO SCH
[2020-02-27] MEDS: THIAMINE HCL 100 MG in SYRINGE 9 ML IV SCH ×2 (00:08→08:55)
[2020-02-27] MEDS: SODIUM CHLORIDE 0.9% 1000ML 1,000 ML IV SCH ×2 (00:08→12:50)
[2020-02-27] MEDS: FOLIC ACID 1 MG in SYRINGE 9.8 ML IV SCH ×2 (00:08→08:55)
[2020-02-27 05:47] LABS: Basophils # (auto) 0.11 K/uL (0-0.2); Eosinophils # (auto) 0.07 K/uL (0-0.5); Eosinophils % (auto) 1.3 %; Hematocrit (blood only) 41.4 % (42-52); Hemoglobin 14.4 g/dL (14.0-18.0); Immature Granulocytes # (auto) 0.01 K/uL (0.00-0.02); Immature Granulocytes % (auto) 0.2 %; Lymphocytes # (auto) 1.73 K/uL (1.2-3.4); Lymphocytes % (auto) 30.9 %; Mean Corpuscular Hemoglobin 31.9 pg (25-34); Mean Corpuscular Hgb Conc 34.8 g/dL (32-36); Mean Corpuscular Volume 91.6 fL (80-100); Mean Platelet Volume 9.4 fL (7.4-10.4); Monocytes # (auto) 0.56 K/uL (0.11-0.59); Neutrophils # (auto) 3.12 K/uL (1.4-6.5); Neutrophils % (auto) 55.6 %; Platelet Count 165 K/uL (130-400); RDW Standard Deviation 46.9 fL (36.4-46.3); Red Blood Count 4.52 M/uL (4.7-6.1)
[2020-02-27] MEDS: GABAPENTIN 600 MG TAB PO SCH ×3 (06:04→21:11)
[2020-02-27 06:17] LABS: BUN Creatinine Ratio 8.7 (10-20); Calcium 8.2 mg/dl (8.5-10.1); Creatinine Clr Calc Pharmacy 104.9 ml/min; Est GFR (African American) 118.4; Est GFR (Non-African American) 102.2; Magnesium 1.6 mg/dl (1.8-2.4); Potassium 4.2 mmol/L (3.5-5.1)
[2020-02-27 06:27] LABS: Estimated Average Glucose 114 mg/dl; Hemoglobin A1C 5.6 % (4.5-5.6)
[2020-02-27] MEDS: MAGNESIUM SULFATE / D5W 1 GM/100 ML BAG IV SCH ×2 (07:21→09:02)
[2020-02-27 07:37] LABS: Vitamin B12 390 pg/ml (211-911)
[2020-02-27 07:38] LABS: Folate (Folic Acid) > 24.00 ng/ml (>5.38)
[2020-02-27] MEDS: lisinopriL 20 MG TAB PO SCH (08:55)
[2020-02-27] MEDS ORDERED: GADOBUTROL 65ML VIAL IV PRN (12:00)
--- NOTE | 2020-02-27 12:13 | Magnetic Resonance Report ---
MR brain seizure wo/w con HISTORY: 54 years-old Male cva? Acute strokelike symptoms with history of remote seizure COMPARISON: Head CT, CTA head and neck 02/26/2020, brain MRI 05/09/2017 TECHNIQUE: Multiplanar multisequence MRI of the brain was obtained both with and without the use of 7 .0 mL Gadavist utilizing seizure protocol FINDINGS: No restricted diffusion to suggest acute or subacute infarct. Midline structures including the corpus callosum, brainstem, optic chiasm, pituitary and pineal glands appear unremarkable on the sagittal T 1 series. No cerebellar tonsillar herniation. Degenerative changes are noted involving the imaged cer vical spine. No acute intracranial hemorrhage, midline shift, abnormal extra-axial collection, hydrocephalus or in tracranial mass. Moderate T2/FLAIR hyperintensities throughout the white matter redemonstrated and ap pear unchanged from comparison. The bilateral mesial temporal lobes appear unremarkable. No evidence of mesial temporal sclerosis. Mild atrophy of the brain parenchyma. No abnormal intra-axial or extra- axial enhancement. Major vascular flow voids appear patent. Right greater than left mastoid effusions . Mild mucosal thickening of the paranasal sinuses. Skull and soft tissues are unremarkable. There is suggestion prior bilateral lens replacement. IMPRESSION: 1. No acute intracranial abnormality. 2. No abnormal enhancement. 3. Moderate T2/FLAIR hyperintensities of the white matter are unchanged and nonspecific. Primary diff erential consideration is chronic microvascular ischemic disease. ACT 112: Negative or not required by law. The above report was generated using voice recognition software. It may contain grammatical, syntax o r spelling errors. Electronically signed by: Hunter Landrum M.D. 02/27/2020 12:12 PM
--- NOTE | 2020-02-27 13:25 | CT Scan Report ---
ABDOMEN AND PELVIS CT WITHOUT CONTRAST CT DOSE: 1007.73 mGycm HISTORY: Acute lower abdominal pain R/O Diverticulitis,no obstruction TECHNIQUE: Multiaxial CT images of the abdomen and pelvis were performed without contrast. A dose lo wering technique was utilized adhering to the principles of ALARA. COMPARISON STUDY: CT abdomen and pelvis 11/09/2009 FINDINGS: Clear lung bases. There is no pneumatosis or pneumoperitoneum. Imaged inferior cardiac chambers are u nremarkable. Unremarkable spleen, pancreas and adrenal glands. Hepatic steatosis. Unremarkable gallbl adder. There is severe right and moderate left hydroureteronephrosis. Cortical thinning of the right kidney. Moderate bilateral perinephric stranding. 8 mm probable cyst of the superior pole left kidney . No filling defects identified within the renal collecting systems or ureters. There is marked urina ry bladder distention which measures up to 19 cm in length. Unremarkable prostate. Small fat filled b ilateral inguinal hernias. No abdominal aortic aneurysm. No bowel obstruction or bowel wall thickening. The enlarged urinary bladder partially effaces the adj acent sigmoid colon. Moderate gaseous distention of the transverse colon. Noninflamed appendix. Tiny fat filled periumbilical hernia. Bones appear intact. Multilevel facet arthrosis with spondylitic spu rring. IMPRESSION: 1. Prostamegaly with marked urinary bladder distention compatible with bladder outlet obstruction. Th is also results in severe right and moderate left hydroureteronephrosis. 2. No bowel obstruction or bowel wall thickening. 3. Hepatic steatosis. 4. Additional findings as above. ACT 112: Negative or not required by law. The above report was generated using voice recognition software. It may contain grammatical, syntax o r spelling errors. Electronically signed by: Hunter Landrum M.D. 02/27/2020 1:24 PM
--- NOTE | 2020-02-27 15:45 | Hospitalist Progress Note ---
Date of Service February 27, 2020 Assessment & Plan (1) Stroke-like symptoms: He was admitted with possible strokelike symptoms with questionable dysarthria and left-sided weakness Symptoms resolved as in the emergency room and does not have any recurrence of symptoms in the hospital Neuro examination remained unremarkable this morning MRI did not show any stroke CT of the head and neck [id number] luminal narrowing of the distal V4 segment of the left vertebral artery Speech therapy, PT and OT evaluation Awaiting neurology evaluation (2) Alcoholism: Has history of alcoholism with high alcohol level at presentation No signs of withdrawal We will continue with the current protocol (3) Bladder outlet obstruction: Complaint to have abdominal pain with distention this morning CT scan of the abdomen pelvis did show enlarged prostate with chronic obstructive uropathy associated with bilateral hydronephrosis Titus catheter was placed Discussed with the urologist We will have urology appointment as an outpatient within 10 days (4) Bilateral hydronephrosis: As above No signs of infection DVT prophylaxis Subcu heparin CODE STATUS Full Admission and Anticipated Discharge Date Admission Date: February 26, 2020 Subjective The patient was seen and examined in the telemetry unit He is very hard of hearing Complaint to have severe left lower quadrant abdominal pain with abdominal distention and nausea Has been having overflow incontinence of urine and denies any fever and chills No symptoms of strokes and a TIA Review of Systems Review of Systems: Unobtainable due to severe deafness with subsequent lack of effective communication Physical Exam Physical Exam: Sitting on a chair with some distress Constitutional: well developed, well nourished and + acute distress (Abdominal pain); not ill appearing Eyes: PERRL, conjunctivae normal, anicteric sclerae ENMT: external ear and nose normal, oropharynx normal Neck: trachea midline, no thyromegaly Respiratory: normal respiratory effort; no respiratory distress Auscultation: lungs clear to auscultation bilaterally Cardiovascular: Rate/Rhythm: regular rate and regular rhythm Heart Sounds: no murmur Gastrointestinal (Abdomen): Inspection/Auscultation: + abdomen distended and normal bowel sounds (Decreased) Percussion/Palpation: + abdomen tender (Lower quadrants more on the left lower quadrant) and + guarding Musculoskeletal: No acute arthritis involving any joints Neurologic: Alert, awake and oriented x3, very deaf but no facial asymmetry and no focal sensory and motor or neuro deficit Results & Data Results & Data ([facility]) Vital Signs (Past 12 Hours) Vital Signs Temp Pulse Pulse Resp BP Pulse Ox 02/27/20 15:31 36.9 C 104 H 20 178/92 H 98 02/27/20 14:52 103 H 02/27/20 13:06 37.0 C 79 18 175/92 H 99 02/27/20 08:02 36.7 C 99 H 20 183/94 H 94 02/27/20 07:18 80 02/27/20 03:50 36.9 C 70 16 154/88 H 96 Laboratory Results Short CBC 02/26/20 02/27/20 Range/Units 18:04 05:21 WBC 7.13 5.60 (4.8-10.8) K/uL Hgb 15.1 14.4 (14.0-18.0) g/dL Hct 42.8 41.4 L (42-52) % Plt Count 196 165 (130-400) K/uL BMP 02/26/20 02/27/20 18:04 05:21 Sodium 136 141 Potassium 4.4 4.2 Chloride 104 108 H Carbon Dioxide 26 25 BUN 9 7 Creatinine 0.92 0.77 Glucose 94 74 Calcium 8.9 8.2 L Cardiac Enzymes 02/26/20 Range/Units 18:04 CK-MB (CK-2) 2.9 (0.5-3.6) ng/ml Troponin I < 0.015 (0-0.045) ng/ml Liver Function 02/26/20 Range/Units 18:04 Total Bilirubin 0.3 (0.2-1) mg/dl AST 34 (15-37) U/L ALT 48 (12-78) U/L Alkaline Phosphatase 93 (45-117) U/L Albumin 3.6 (3.4-5.0) gm/dl Medications Administered Current Inpatient Medications Acetaminophen (Tylenol) 650 mg PO Q4H PRN PRN Reason: Pain or Fever Stop: 03/27/20 22:52 Clonidine HCl (Catapres) 0.1 mg PO Q4H PRN PRN Reason: Hypertension Stop: 03/27/20 22:52 Gabapentin (Neurontin) 600 mg PO Q8H [facility] Stop: 02/28/20 14:01 Gabapentin (Neurontin) 600 mg PO Q12H [facility] Stop: 02/29/20 10:01 Gabapentin (Neurontin) 600 mg PO Q24H [facility] Stop: 03/01/20 10:01 Gadobutrol (Gadavist 65ml) 7 ml IV ONCE PRN PRN Reason: Interaction Checking Stop: 03/02/20 11:59 Last Admin: 02/27/20 12:01 Dose: 7 ml Documented by: Sodium Chloride (Nss 1000ml) 1,000 mls @ 80 mls/hr IV .[id number] [facility] Stop: 03/27/20 22:52 Last Infusion: 02/27/20 13:24 Dose: 80 mls/hr Documented by: Thiamine HCl 100 mg/ Syringe 10 mls @ 2 mls/min IV QAM [facility] Stop: 03/28/20 00:00 Last Admin: 02/27/20 08:55 Dose: 2 mls/min Documented by: Folic Acid 1 mg/ Syringe 10 mls @ 5 mls/min IV QAM [facility] Stop: 03/28/20 00:00 Last Admin: 02/27/20 08:55 Dose: 5 mls/min Documented by: Lorazepam (Ativan) 1 mg in 2 mls @ 2 mls/min IV UD PRN; Protocol PRN Reason: EtOH Withdrawl AWSS Score 6,7 Stop: 03/27/20 22:52 Lorazepam (Ativan) 2 mg in 4 mls @ 4 mls/min IV UD PRN; Protocol PRN Reason: EtOH Withdrawl AWSS Score 8,9 Stop: 03/27/20 22:52 Lorazepam (Ativan) 3 mg in 6 mls @ 4 mls/min IV ONCE PRN; Protocol PRN Reason: EtOH Withdrawl AWSS Score >=10 Stop: 03/27/20 22:52 Lisinopril (Zestril) 20 mg PO DAILY [facility] Stop: 03/28/20 08:59 Last Admin: 02/27/20 08:55 Dose: 20 mg Documented by: Miscellaneous Information (Pharmacist Discharge Med Rec Consult) 1 ea N/A UD PRN PRN Reason: Consult Stop: 03/27/20 22:52 Ondansetron HCl (Zofran) 4 mg IV Q6H PRN PRN Reason: Nausea Stop: 03/27/20 22:52 Polyethylene Glycol (Miralax Powder Packet) 17 gm PO DAILY PRN PRN Reason: Constipation Stop: 03/27/20 22:52
[2020-02-27] MEDS: ONDANSETRON INJ 2 MG/ML 2 ML VIAL IV PRN (17:22)
[2020-02-27] MEDS: ASPIRIN 81 MG ECTAB PO SCH (17:59)
--- NOTE | 2020-02-27 18:16 | Consultation Report ---
DATE OF CONSULTATION: 02/27/[address] Padron. HISTORY OF PRESENT ILLNESS: The patient is 54 years old, is right handed and regularly a patient of Dr. Faisal Laboy. He has a long history of hypertension, alcoholism. He is chronically nearly deaf and apparently last night after drinking an unrecalled amount of alcohol, he began having some slurred speech and some weakness in the left hand. It is possible this had been going on for several days and there were some questionable facial droop. He had a fall several weeks before and a friend was concerned that he may have had a stroke. When he presented to the hospital, he had an alcohol level of 300 and he was quite sleepy. He can tell examining physician the date of his , the month and year. Did not have any chest pain and was resting comfortably and insists that there was nothing wrong with his brain. 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 Subsequent MRI scan has shown no evidence for an infarction in the posterior circulation or indeed anywhere else. Surgically, the man has only had a colonoscopy and medically he only takes lisinopril, folic acid 1 mg a day. He is not on aspirin. FAMILY HISTORY: Positive for breast cancer in his mother along with heart disease and his father had coronary disease, diabetes and a brother has diabetes. SOCIAL HISTORY: Reveals him to be single, living alone. He is a nonsmoker. He claims to drink once in a while up to 6 beers a day, but an alcohol level of 300 ____ with a larger consumption rate. REVIEW OF SYSTEMS: Almost impossible to obtain other than the fact that the patient insisted there was nothing wrong with him and he again insist that he has no medical problems. He is having no symptoms and he would like to go home. PHYSICAL EXAMINATION: VITAL SIGNS: Yesterday on examination, he was afebrile. His respiratory rate was 20, blood pressure was 124/81, oxygen was 92%. HEENT: He had some clearcut severe hearing loss to conversation. There were no other abnormalities on examination of the head, eyes, ears, nose and throat. NECK: There were no carotid bruits. LUNGS: Clear. HEART: Had a regular rhythm. There was no peripheral edema. ABDOMEN: Soft and nontender. NEUROLOGIC: On exam today, he clearly is hearing impaired. He has got slightly dysarthric explosive speech pattern, which I think is longstanding and has normal eye movements, normal visual smart, normal gross visual acuity, normal facial sensation. Protrudes his tongue normally, has a supple neck. I do not black pickler on any tremor, tics or choreiform activity. He can do [id number] and legtl-va-[id number] testing. I did not test gait, but he could do heel to [place] testing at the bedside and had good rapid repetitive motor motions. Reflexes were little hypoactive. Toes are downgoing. No Bryn signs were seen. Gross strength testing was normal and his sensory examination was somewhat attenuated as he had limited comprehension of what I was asking due to his hearing loss, but he seemed to feel the tuning fork in all 4 extremities and could tell me where his feet were in terms of space with his eyes closed and seemed to have good appreciation of pinprick. At this point, I suspect this man has been chronically intoxicated for several days and probably presented with an intoxicated state rather than having to postulate a vascular accident. That having been said, however, he does have a posterior circulation that might predispose him to having ischemic events and I would suggest that he be placed on aspirin a day just preventatively. His posterior circuoation will also require some reasonable perfusion pressure and I would keep his blood pressure in the mildly hypertensive to high normotensiveranges. He is going to be observed I suspect overnight for potential alcohol withdrawal, which he might be subject to now as we stopped his alcohol consumption somewhat abruptly. If he is fine in the morning, I would suggest he be discharged to home care and follow up with Dr. Laboy and I do not think Neurology really needs to see him on a regular basis. MELISSA
[2020-02-27] MEDS: HEPARIN SOD 5,000 UNIT/0.5 ML VIAL SQ SCH (21:12)
[2020-02-28] MEDS: SODIUM CHLORIDE 0.9% 1000ML 1,000 ML IV SCH (00:32)
--- NOTE | 2020-02-28 04:29 | Electrocardiogram Report ---
Test Reason : Blood Pressure : / mmHG Vent. Rate : 085 BPM Atrial Rate : 085 BPM P-R Int : 146 ms QRS Dur : 088 ms QT Int : 340 ms P-R-T Axes : 026 -07 022 degrees QTc Int : 404 ms Normal sinus rhythm Normal ECG When compared with ECG of 09-MAY-2017 18:24, Incomplete right bundle branch block is no longer Present Criteria for Septal infarct are no longer Present QT has shortened Confirmed by Ahsan Stein ([id number]) on 02/28/2020 4:29:02 AM Referred By: REFERRED SELF Confirmed By:Ahsan Stein
[2020-02-28] MEDS: ONDANSETRON INJ 2 MG/ML 2 ML VIAL IV PRN (05:05)
[2020-02-28] MEDS: GABAPENTIN 600 MG TAB PO SCH ×3 (05:27→21:04)
[2020-02-28 05:56] LABS: Basophils # (auto) 0.03 K/uL (0-0.2); Basophils % (auto) 0.4 %; Eosinophils # (auto) 0.01 K/uL (0-0.5); Eosinophils % (auto) 0.1 %; Hemoglobin 14.3 g/dL (14.0-18.0); Immature Granulocytes # (auto) 0.02 K/uL (0.00-0.02); Immature Granulocytes % (auto) 0.3 %; Lymphocytes # (auto) 1.41 K/uL (1.2-3.4); Lymphocytes % (auto) 18.3 %; Mean Corpuscular Hemoglobin 31.9 pg (25-34); Mean Corpuscular Volume 93.8 fL (80-100); Mean Platelet Volume 9.8 fL (7.4-10.4); Monocytes # (auto) 0.62 K/uL (0.11-0.59); Neutrophils # (auto) 5.62 K/uL (1.4-6.5); Neutrophils % (auto) 72.9 %; Platelet Count 162 K/uL (130-400); RDW Coefficient of Variation 13.9 % (11.5-14.5); RDW Standard Deviation 47.4 fL (36.4-46.3); Red Blood Count 4.48 M/uL (4.7-6.1); White Blood Count 7.71 K/uL (4.8-10.8)
[2020-02-28 06:27] LABS: BUN Creatinine Ratio 12.7 (10-20); Calcium 8.7 mg/dl (8.5-10.1); Creatinine Clr Calc Pharmacy 86.8 ml/min; Est GFR (African American) 106.7; Est GFR (Non-African American) 92.1; Magnesium 1.8 mg/dl (1.8-2.4); Potassium 3.8 mmol/L (3.5-5.1)
[2020-02-28] MEDS: HEPARIN SOD 5,000 UNIT/0.5 ML VIAL SQ SCH ×2 (08:15→21:04)
[2020-02-28] MEDS: lisinopriL 20 MG TAB PO SCH (08:15)
[2020-02-28] MEDS: FOLIC ACID 1 MG in SYRINGE 9.8 ML IV SCH (08:15)
[2020-02-28] MEDS: THIAMINE HCL 100 MG in SYRINGE 9 ML IV SCH (08:15)
[2020-02-28] MEDS: ASPIRIN 81 MG ECTAB PO SCH (08:15)
--- NOTE | 2020-02-28 14:20 | Hospitalist Progress Note ---
Date of Service February 28, 2020 Assessment & Plan (1) Stroke-like symptoms: He was admitted with possible strokelike symptoms with questionable dysarthria and left-sided weakness Symptoms resolved as in the emergency room and does not have any recurrence of symptoms in the hospital Neuro examination remained unremarkable this morning MRI did not show any stroke CT of the head and neck [id number] luminal narrowing of the distal V4 segment of the left vertebral artery Speech therapy, PT and OT evaluation Awaiting neurology evaluation-appreciate input and recommendation Stroke has been ruled out and may had TIA Advised to have a baby aspirin daily Continue statin (2) Alcoholism: Has history of alcoholism with high alcohol level at presentation No signs of withdrawal We will continue with the current protocol No signs of withdrawal symptoms but has been on gabapentin protocol (3) Bladder outlet obstruction: Complaint to have abdominal pain with distention this morning CT scan of the abdomen pelvis did show enlarged prostate with chronic obstructive uropathy associated with bilateral hydronephrosis Titus catheter was placed Discussed with the urologist We will have urology appointment as an outpatient within 10 days Denies any abdominal pain and/or back pain (4) Bilateral hydronephrosis: As above No signs of infection DVT prophylaxis Subcu heparin CODE STATUS Full Continue PT and OT and likely discharge tomorrow Admission and Anticipated Discharge Date Admission Date: February 26, 2020 Subjective The patient was seen and examined in the telemetry unit He is very hard of hearing Complaint to have severe left lower quadrant abdominal pain with abdominal distention and nausea Has been having overflow incontinence of urine and denies any fever and chills No symptoms of strokes and a TIA 02/28/2020 The patient was seen and examined in telemetry unit He has been feeling a lot better and denies any neuro symptoms No more abdominal pain and normal back pain Review of Systems Review of Systems: Unobtainable due to severe deafness with subsequent lack of effective communication Physical Exam Physical Exam: Sitting on a without any acute distress Constitutional: well developed and well nourished; no acute distress (Abdominal pain) and not ill appearing Eyes: PERRL, conjunctivae normal, anicteric sclerae ENMT: external ear and nose normal, oropharynx normal Neck: trachea midline, no thyromegaly Respiratory: normal respiratory effort; no respiratory distress Auscultation: lungs clear to auscultation bilaterally Cardiovascular: Rate/Rhythm: regular rate and regular rhythm Heart Sounds: no murmur Gastrointestinal (Abdomen): Inspection/Auscultation: normal bowel sounds (Decreased); abdomen not distended Percussion/Palpation: abdomen soft; abdomen nontender (Lower quadrants more on the left lower quadrant) and no guarding Musculoskeletal: No acute arthritis involving any joints Neurologic: moves all extremities; no focal motor deficits Alert and awake. Very deaf Results & Data Results & Data ([facility]) Vital Signs (Past 12 Hours) Vital Signs Temp Pulse Pulse Resp BP BP Pulse Ox 02/28/20 12:06 36.7 C 78 19 148/80 H 98 02/28/20 07:23 86 02/28/20 06:48 36.7 C 82 20 159/89 H 95 02/28/20 03:47 37.1 C 86 159/94 H 95 Laboratory Results Short CBC 02/28/20 Range/Units 05:30 WBC 7.71 (4.8-10.8) K/uL Hgb 14.3 (14.0-18.0) g/dL Hct 42.0 (42-52) % Plt Count 162 (130-400) K/uL BMP 02/28/20 05:30 Sodium 134 L Potassium 3.8 Chloride 101 Carbon Dioxide 26 BUN 12 D Creatinine 0.93 Glucose 94 Calcium 8.7 Medications Administered Current Inpatient Medications Acetaminophen (Tylenol) 650 mg PO Q4H PRN PRN Reason: Pain or Fever Stop: 03/27/20 22:52 Last Admin: 02/27/20 19:41 Dose: 650 mg Documented by: Aspirin (Ecotrin Ectab) 81 mg PO QAM [facility] Stop: 03/28/20 16:29 Last Admin: 02/28/20 08:15 Dose: 81 mg Documented by: Clonidine HCl (Catapres) 0.1 mg PO Q4H PRN PRN Reason: Hypertension Stop: 03/27/20 22:52 Last Admin: 02/28/20 00:30 Dose: 0.1 mg Documented by: Gabapentin (Neurontin) 600 mg PO Q12H [facility] Stop: 02/29/20 10:01 Gabapentin (Neurontin) 600 mg PO Q24H [facility] Stop: 03/01/20 10:01 Gadobutrol (Gadavist 65ml) 7 ml IV ONCE PRN PRN Reason: Interaction Checking Stop: 03/02/20 11:59 Last Admin: 02/27/20 12:01 Dose: 7 ml Documented by: Heparin Sodium (Porcine) (Heparin Sodium (Porcine)) 5,000 units SQ Q12 [facility] Stop: 03/28/20 20:59 Last Admin: 02/28/20 08:15 Dose: 5,000 units Documented by: Thiamine HCl 100 mg/ Syringe 10 mls @ 2 mls/min IV QAM [facility] Stop: 03/28/20 00:00 Last Admin: 02/28/20 08:15 Dose: 2 mls/min Documented by: Folic Acid 1 mg/ Syringe 10 mls @ 5 mls/min IV QAM [facility] Stop: 03/28/20 00:00 Last Admin: 02/28/20 08:15 Dose: 5 mls/min Documented by: Lorazepam (Ativan) 1 mg in 2 mls @ 2 mls/min IV UD PRN; Protocol PRN Reason: EtOH Withdrawl AWSS Score 6,7 Stop: 03/27/20 22:52 Lorazepam (Ativan) 2 mg in 4 mls @ 4 mls/min IV UD PRN; Protocol PRN Reason: EtOH Withdrawl AWSS Score 8,9 Stop: 03/27/20 22:52 Last Admin: 02/27/20 19:26 Dose: 4 mls/min Documented by: Lorazepam (Ativan) 3 mg in 6 mls @ 4 mls/min IV ONCE PRN; Protocol PRN Reason: EtOH Withdrawl AWSS Score >=10 Stop: 03/27/20 22:52 Lisinopril (Zestril) 20 mg PO DAILY [facility] Stop: 03/28/20 08:59 Last Admin: 02/28/20 08:15 Dose: 20 mg Documented by: Miscellaneous Information (Pharmacist Discharge Med Rec Consult) 1 ea N/A UD PRN PRN Reason: Consult Stop: 03/27/20 22:52 Ondansetron HCl (Zofran) 4 mg IV Q6H PRN PRN Reason: Nausea Stop: 03/27/20 22:52 Last Admin: 02/28/20 05:05 Dose: 4 mg Documented by: Polyethylene Glycol (Miralax Powder Packet) 17 gm PO DAILY PRN PRN Reason: Constipation Stop: 03/27/20 22:52
[2020-02-29 07:38] LABS: Basophils # (auto) 0.03 K/uL (0-0.2); Basophils % (auto) 0.4 %; Eosinophils # (auto) 0.03 K/uL (0-0.5); Eosinophils % (auto) 0.4 %; Hematocrit (blood only) 42.3 % (42-52); Hemoglobin 14.4 g/dL (14.0-18.0); Immature Granulocytes # (auto) 0.01 K/uL (0.00-0.02); Immature Granulocytes % (auto) 0.1 %; Lymphocytes # (auto) 1.66 K/uL (1.2-3.4); Lymphocytes % (auto) 23.5 %; Mean Corpuscular Hemoglobin 31.9 pg (25-34); Mean Corpuscular Volume 93.6 fL (80-100); Mean Platelet Volume 10.3 fL (7.4-10.4); Monocytes # (auto) 0.56 K/uL (0.11-0.59); Monocytes % (auto) 7.9 %; Neutrophils # (auto) 4.76 K/uL (1.4-6.5); Neutrophils % (auto) 67.7 %; Platelet Count 140 K/uL (130-400); RDW Coefficient of Variation 13.4 % (11.5-14.5); RDW Standard Deviation 45.8 fL (36.4-46.3); Red Blood Count 4.52 M/uL (4.7-6.1); White Blood Count 7.05 K/uL (4.8-10.8)
[2020-02-29 08:08] LABS: BUN Creatinine Ratio 9.9 (10-20); Calcium 9.2 mg/dl (8.5-10.1); Creatinine Clr Calc Pharmacy 86.8 ml/min; Est GFR (African American) 106.7; Est GFR (Non-African American) 92.1; Potassium 3.9 mmol/L (3.5-5.1)
[2020-02-29] MEDS: FOLIC ACID 1 MG in SYRINGE 9.8 ML IV SCH (08:49)
[2020-02-29] MEDS: THIAMINE HCL 100 MG in SYRINGE 9 ML IV SCH (08:49)
[2020-02-29] MEDS: lisinopriL 20 MG TAB PO SCH (08:49)
[2020-02-29] MEDS: HEPARIN SOD 5,000 UNIT/0.5 ML VIAL SQ SCH (08:50)
[2020-02-29] MEDS: ASPIRIN 81 MG ECTAB PO SCH (08:50)
[2020-02-29] MEDS: GABAPENTIN 600 MG TAB PO SCH (09:47)
--- NOTE | 2020-02-29 14:19 | Hospitalist Progress Note ---
Date of Service February 29, 2020 Assessment & Plan (1) Stroke-like symptoms: He was admitted with possible strokelike symptoms with questionable dysarthria and left-sided weakness Symptoms resolved as in the emergency room and does not have any recurrence of symptoms in the hospital Neuro examination remained unremarkable this morning MRI did not show any stroke CT of the head and neck [id number] luminal narrowing of the distal V4 segment of the left vertebral artery Speech therapy, PT and OT evaluation Awaiting neurology evaluation-appreciate input and recommendation Stroke has been ruled out and may had TIA Advised to have a baby aspirin daily Continue statin No more strokelike symptoms and/or TIA symptoms (2) Alcoholism: Has history of alcoholism with high alcohol level at presentation No signs of withdrawal We will continue with the current protocol No signs of withdrawal symptoms but has been on gabapentin protocol Outpatient rehab as planned (3) Bladder outlet obstruction: Complaint to have abdominal pain with distention this morning CT scan of the abdomen pelvis did show enlarged prostate with chronic obstructive uropathy associated with bilateral hydronephrosis Titus catheter was placed Discussed with the urologist We will have urology appointment as an outpatient within 10 days Denies any abdominal pain and/or back pain The Titus catheter will be there until being seen by urologist (4) Bilateral hydronephrosis: As above No signs of infection No symptoms of flank and/or renal angles pain DVT prophylaxis Subcu heparin CODE STATUS Full Continue PT and OT -recommended home Will discharge home this afternoon Discussed with the mother in detail and discussed about the importance of Titus catheter and how to manage it Admission and Anticipated Discharge Date Admission Date: February 26, 2020 Subjective The patient was seen and examined in the telemetry unit He is very hard of hearing Complaint to have severe left lower quadrant abdominal pain with abdominal distention and nausea Has been having overflow incontinence of urine and denies any fever and chills No symptoms of strokes and a TIA 02/28/2020 The patient was seen and examined in telemetry unit He has been feeling a lot better and denies any neuro symptoms No more abdominal pain 02/29/2020 The patient was seen and examined in telemetry unit He has been feeling a lot better and denies any symptoms He wants to go home but is not happy about the Titus catheter I explained to him the importance of having Titus catheter right now Review of Systems Review of Systems: Unobtainable due to severe deafness with subsequent lack of effective communication Physical Exam Physical Exam: Sitting on a without any acute distress Constitutional: well developed and well nourished; no acute distress (Abdominal pain) and not ill appearing He is very deaf and may have low vision Eyes: PERRL, conjunctivae normal, anicteric sclerae ENMT: external ear and nose normal, oropharynx normal Neck: trachea midline, no thyromegaly Respiratory: normal respiratory effort; no respiratory distress Auscultation: lungs clear to auscultation bilaterally Cardiovascular: Rate/Rhythm: regular rate and regular rhythm Heart Sounds: no murmur Gastrointestinal (Abdomen): Inspection/Auscultation: normal bowel sounds (Decreased); abdomen not distended Percussion/Palpation: abdomen soft; abdomen nontender (Lower quadrants more on the left lower quadrant) and no guarding Musculoskeletal: No acute arthritis involving any joints Neurologic: moves all extremities; no focal motor deficits Alert and awake. Very deaf and might have visual impairment Results & Data Results & Data ([facility]) Vital Signs (Past 12 Hours) Vital Signs Temp Pulse Resp BP BP Pulse Ox 02/29/20 12:04 36.5 C 75 20 157/90 H 98 02/29/20 07:45 36.7 C 76 18 155/90 H 95 02/29/20 04:14 36.9 C 69 18 163/94 H 96 Laboratory Results Short CBC 02/29/20 Range/Units 07:19 WBC 7.05 (4.8-10.8) K/uL Hgb 14.4 (14.0-18.0) g/dL Hct 42.3 (42-52) % Plt Count 140 (130-400) K/uL BMP 02/29/20 07:19 Sodium 133 L Potassium 3.9 Chloride 96 L Carbon Dioxide 31 BUN 9 Creatinine 0.93 Glucose 80 Calcium 9.2 Medications Administered Current Inpatient Medications Acetaminophen (Tylenol) 650 mg PO Q4H PRN PRN Reason: Pain or Fever Stop: 03/27/20 22:52 Last Admin: 02/27/20 19:41 Dose: 650 mg Documented by: Aspirin (Ecotrin Ectab) 81 mg PO QAM [facility] Stop: 03/28/20 16:29 Last Admin: 02/29/20 08:50 Dose: 81 mg Documented by: Clonidine HCl (Catapres) 0.1 mg PO Q4H PRN PRN Reason: Hypertension Stop: 03/27/20 22:52 Last Admin: 02/28/20 00:30 Dose: 0.1 mg Documented by: Gabapentin (Neurontin) 600 mg PO Q24H [facility] Stop: 03/01/20 10:01 Gadobutrol (Gadavist 65ml) 7 ml IV ONCE PRN PRN Reason: Interaction Checking Stop: 03/02/20 11:59 Last Admin: 02/27/20 12:01 Dose: 7 ml Documented by: Heparin Sodium (Porcine) (Heparin Sodium (Porcine)) 5,000 units SQ Q12 [facility] Stop: 03/28/20 20:59 Last Admin: 02/29/20 08:50 Dose: Not Given Documented by: Thiamine HCl 100 mg/ Syringe 10 mls @ 2 mls/min IV QAM [facility] Stop: 03/28/20 00:00 Last Admin: 02/29/20 08:49 Dose: 2 mls/min Documented by: Folic Acid 1 mg/ Syringe 10 mls @ 5 mls/min IV QAM [facility] Stop: 03/28/20 00:00 Last Admin: 02/29/20 08:49 Dose: 5 mls/min Documented by: Lorazepam (Ativan) 1 mg in 2 mls @ 2 mls/min IV UD PRN; Protocol PRN Reason: EtOH Withdrawl AWSS Score 6,7 Stop: 03/27/20 22:52 Lorazepam (Ativan) 2 mg in 4 mls @ 4 mls/min IV UD PRN; Protocol PRN Reason: EtOH Withdrawl AWSS Score 8,9 Stop: 03/27/20 22:52 Last Admin: 02/27/20 19:26 Dose: 4 mls/min Documented by: Lorazepam (Ativan) 3 mg in 6 mls @ 4 mls/min IV ONCE PRN; Protocol PRN Reason: EtOH Withdrawl AWSS Score >=10 Stop: 03/27/20 22:52 Lisinopril (Zestril) 20 mg PO DAILY [facility] Stop: 03/28/20 08:59 Last Admin: 02/29/20 08:49 Dose: 20 mg Documented by: Miscellaneous Information (Pharmacist Discharge Med Rec Consult) 1 ea N/A UD PRN PRN Reason: Consult Stop: 03/27/20 22:52 Ondansetron HCl (Zofran) 4 mg IV Q6H PRN PRN Reason: Nausea Stop: 03/27/20 22:52 Last Admin: 02/28/20 05:05 Dose: 4 mg Documented by: Polyethylene Glycol (Miralax Powder Packet) 17 gm PO DAILY PRN PRN Reason: Constipation Stop: 03/27/20 22:52
[2020-02-29] MEDS ORDERED: STROKE PATIENT DISCHARGE STA (14:32)
--- NOTE | 2020-03-01 08:07 | Discharge Summary ---
Date of Service March 01, 2020 Admission HPI Per Admitting Provider DICTATED BY: Mikael Garcia MD DATE OF ADMISSION: 02/26/2020 CHIEF COMPLAINT: Questionable stroke-like symptoms. HISTORY OF PRESENT ILLNESS: This is a 54-year-old male with past medical history significant for hypertension, alcoholism, history of hard of hearing. He was brought in because of questionable stroke-like symptoms. The patient is having some questionable slurred speech for last 2 days and questionable weakness in the left hand and it is persistent and there is questionable left facial droop. He had a history of falling one week ago and he was brought to the hospital. The patient's alcohol level is more than 300 and he is sleepy. He has some pressured speech, but his speech is okay, can tell his name, can tell his date of , knows the month and year.Denies any chest pain or headache or nausea or belly pain. 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 His initial CT scan and CTA of the head and neck is unremarkable, but he was able to smile and stick his tongue out. Could not appreciate any facial droop. Closed his eyes okay. Strength is okay in his extremities. Admission Exam Per Admitting Provider GENERAL: The patient is alert and awake and seemed oriented, somewhat drowsy. VITAL SIGNS: Temperature 37.5, pulse 83, respiratory rate in the 20s, blood pressure 124/81, oxygen 92% on room air. HEENT: No pallor, no icterus. Pupils equal, round, and reactive to light. NECK: No JVD, no neck masses. CARDIOVASCULAR: S1, S2 heard. Regular rate and rhythm, no murmur, no gallop. RESPIRATORY SYSTEM: Normal AP diameter. No accessory muscle use. No wheezing, no crackles. ABDOMEN: Soft, bowel sounds present, nontender. No distention. CENTRAL NERVOUS SYSTEM: Alert and awake, oriented to name. Remote memory intact. Speech is clear. No facial droop appreciated. Power 5/5 in all extremities. Could not complete exam as the patient is noncooperative. EXTREMITIES: No edema, no erythema. Principal Diagnosis Strokelike symptoms-resolved, obstructive uropathy, alcoholism without any withdrawal symptoms Discharge Exam Constitutional well developed and well nourished; no acute distress (Abdominal pain) and not ill appearing Eyes PERRL, conjunctivae normal, anicteric sclerae ENMT external ear and nose normal, oropharynx normal Neck trachea midline, no thyromegaly Respiratory normal respiratory effort; no respiratory distress Auscultation: lungs clear to auscultation bilaterally Cardiovascular Rate/Rhythm: regular rate and regular rhythm Heart Sounds: no murmur Gastrointestinal (Abdomen) Inspection/Auscultation: normal bowel sounds (Decreased); abdomen not distended Percussion/Palpation: abdomen soft; abdomen nontender (Lower quadrants more on the left lower quadrant) and no guarding Neurologic moves all extremities; no focal motor deficits Discharge Data Allergies Allergy/AdvReac Type Severity Reaction Status Date / Time No Known Allergies Allergy Verified 02/29/20 22:42 Consultations 02/26/20 20:11 ED Decision to Admit Stat 02/26/20 22:53 Consult Case Management - Discharge Planning Routine Consult Case Management - Discharge Planning Routine 02/27/20 08:00 Consult Neurology Routine Ordered Studies 02/26/20 18:10 CT angio head w con Stat CT angio neck with con Stat CT head/brain wo con Stat 02/27/20 08:00 MR brain seizure wo/w con Routine 02/27/20 10:20 CT Abd and Pelvis [CT abd pelvis wo con] Urgent Hospital Course (1) Stroke-like symptoms: He was admitted with possible strokelike symptoms with questionable dysarthria and left-sided weakness Symptoms resolved as in the emergency room and does not have any recurrence of symptoms in the hospital Neuro examination remained unremarkable this morning MRI did not show any stroke CT of the head and neck [id number] luminal narrowing of the distal V4 segment of the left vertebral artery Speech therapy, PT and OT evaluation Awaiting neurology evaluation-appreciate input and recommendation Stroke has been ruled out and may had TIA Advised to have a baby aspirin daily Continue statin No more strokelike symptoms and/or TIA symptoms (2) Alcoholism: Has history of alcoholism with high alcohol level at presentation No signs of withdrawal We will continue with the current protocol No signs of withdrawal symptoms but has been on gabapentin protocol Outpatient rehab as planned (3) Bladder outlet obstruction: Complaint to have abdominal pain with distention this morning CT scan of the abdomen pelvis did show enlarged prostate with chronic obstructive uropathy associated with bilateral hydronephrosis Titus catheter was placed Discussed with the urologist We will have urology appointment as an outpatient within 10 days Denies any abdominal pain and/or back pain The Titus catheter will be there until being seen by urologist (4) Bilateral hydronephrosis: As above No signs of infection No symptoms of flank and/or renal angles pain DVT prophylaxis Subcu heparin CODE STATUS Full Continue PT and OT -recommended home Will discharge home this afternoon Discussed with the mother in detail and discussed about the importance of Titus catheter and how to manage it Total Time Total Time Spent Total Time Spent (In Minutes): 35 minutes Total Time Includes: Examination of the Patient, Discharge Planning, Medication Reconciliation and Communication With Other Providers Discharge Plan Discharge Items Patient Disposition: Home - Self-Care Reason For Visit: STROKE LIKE SYMPTOMS Discharge Diagnosis: Strokelike symptoms-resolved, obstructive uropathy, alcoholism without any withdrawal symptoms Condition on Discharge: Fair Activity: Resume your previous activity Non-emergency contact: Primary Care Provider Call non-emergency contact if: you have any medication questions and your symptoms worsen Follow-up/Referrals: Faisal Laboy MD [Primary Care Provider] - 03/02/20 12:00 pm (03/02/2020 12:00 PM Provider Yue Bowling DO Department [facility] Urology follow-up appointment will be made by Rebeca Nelson ([facility]rology group) within 10 to 14 days. ) Diet: Heart Healthy Addtl Attending Provider Instructions: Please take precaution to avoid falls Extreme precaution so that the urinary catheter is not pulled or taken out. Do not drink anymore alcohol Please keep appointment with outpatient rehab Pending Studies at Discharge: No Stand-Alone Forms: [employer], Smoking Cessation Medications and DC Order Prescriptions: New aspirin 81 mg Tablet,Delayed Release (Dr/Ec) 81 mg PO QAM 30 Days Qty: 30 RF: 0 thiamine HCl (vitamin B1) 50 mg tablet 50 mg PO DAILY Qty: 30 RF: 0 Continued folic acid 1 mg Tablet 1 mg PO DAILY RF: 0 lisinopril 20 mg Tablet 20 mg PO DAILY RF: 0 Discharge Orders: Discharge Order (Routine); Ordered 02/29/20 Ordered By: Manabendra Nereida Admission Data Admit Date/Time: 02/26/20 22:01 Attending Provider: Jessica Padron Admit Provider: Mikael Garcia Primary Care Provider: Faisal Laboy Other Providers: Mikael Garcia ; Latasha Lawson ; Fabian Wesley ; Latasha Nelson ; Theo Liu ; [place] Other Interventions: Discharge Summary Assessment (RN) Last Done: 02/29/20 15:43 DC Date/Time DO NOT enter until pt leaves facility: 02/29/20 17:06
[2020-03-01] MEDS ORDERED: GABAPENTIN 600 MG TAB PO SCH (10:00)
== END 2020-02-29 17:06 | disposition home health service (06) | DRG 57 ==
LOC: ED 16:36 → 2S 22:01

== ENCOUNTER 2020-05-09 16:56 | Inpatient (IN) ==
[2020-05-09] MEDS ORDERED: DIPHTHERIA/TETANUS/PERTUSSIS 0.5 ML SYR/VIAL IM ONE (17:11)
[2020-05-09] MEDS ORDERED: cefTRIAXone SODIUM 2,000 MG/70 ML BAG IV STA (17:11)
--- NOTE | 2020-05-09 17:18 | Emergency Department Note ---
History of Present Illness General Chief complaint: Leg Injury/Pain Stated complaint: OPEN WOUND ON L [place] Time Seen by Provider: 05/09/20 17:02 Source: patient History of Present Illness Provider complaint: Left leg pain Onset (ago): day(s) Location: lower extremity and left Radiation: non-radiation Severity: moderate Pain Consistency: + constant Maximum Pain Intensity: 6 Relieved By: + none Exacerbated By: + other (Touching it) Associated symptoms: no chest pain, no cough, no fever/chills, no headaches, no malaise, no nausea/vomiting and no shortness of breath This is a 54-year-old male with a history of hypertension presenting with an injury to his left leg that occurred 3 days ago. The patient was chopping wood in the [place] and a large piece of wood came down onto his left leg peeling off a large portion of skin. He was in the middle and [place] and was unable to clean it but when he got home he was able to wash it off. He showed it to his coworker today who recommended he come in to get evaluated. He denies any associated fever, vomiting, malaise, myalgias, pain rating into his groin, abdominal pain, chest pain, shortness of breath or known COVID-19 exposure. He does state that his tetanus shot is not up-to-date. He complains of 6 out of 10 pain to the ashford. It is worse when you touch it. Home Medications Home Medications Medication Instructions Recorded Confirmed Type folic acid 1 mg PO QAM 05/02/18 05/09/20 History lisinopril 20 mg PO QAM 09/13/18 05/09/20 History aspirin [Aspir-81] 81 mg PO QAM 05/09/20 05/09/20 History Allergies Allergy/AdvReac Type Severity Reaction Status Date / Time No Known Allergies Allergy Verified 05/09/20 18:09 Past Med/Surg History Medical History Alcohol abuse History of chronic urinary tract infection Hypertension Renal calculi Surgical History S/P lens implant Social History Smoking Status: Current every day smoker Cigarettes Per Day: LOTS; Second Hand Exposure: Yes; Hx Alcohol Use: Yes Alcohol type: beer Hx Substance Use: No Preferred Language: Botswanan Communication Ability: Effective Simulation Educator Required: No Beliefs That Will Affect Care: None Current Living Situation: Alone Feels Safe at Home: Yes Safety Concerns: Feels Safe At This Time Review of Systems See HPI for pertinent positives & negatives. and A total of 10 systems reviewed and were otherwise negative Physical Exam Vital Signs Vital Signs - 24 hr 05/09/20 16:59 05/09/20 18:14 05/09/20 18:30 Temperature 36.7 C Temperature Source Oral Pulse Rate 120 H Pulse Rate [Apical] 108 H Respiratory Rate 18 19 Respiratory Effort / Characteristics Non-Labored Spontaneous Non-Labored Spontaneous Non-Labored Spontaneous Respiratory Depth Normal Respiratory Pattern Regular Blood Pressure 144/76 H Blood Pressure [Left Arm] 109/67 Blood Pressure Mean 98 Blood Pressure Mean [Left Arm] 81 Blood Pressure Position Sitting Pulse Oximetry 98 96 Oxygen Delivery Method Room Air Room Air Room Air Sepsis Recent Fever Within 48 Hours No Sepsis New/Unexplained Change in Mental Status No Sepsis Action Taken by Nursing No Action Required 05/09/20 19:00 Temperature Temperature Source Pulse Rate 99 H Pulse Rate [Apical] Respiratory Rate 23 Respiratory Effort / Characteristics Non-Labored Spontaneous Respiratory Depth Respiratory Pattern Blood Pressure 119/74 Blood Pressure [Left Arm] Blood Pressure Mean 92 Blood Pressure Mean [Left Arm] Blood Pressure Position Pulse Oximetry Oxygen Delivery Method Room Air Sepsis Recent Fever Within 48 Hours Sepsis New/Unexplained Change in Mental Status Sepsis Action Taken by Nursing Constitutional: Vital signs reviewed. Eyes: Pupils are equal round reactive to light. Conjunctiva are noninjected. ENT: Pharynx is clear without erythema or exudate. Mucous membranes are moist. Neck supple without meningeal signs. Respiratory: Clear to auscultation bilaterally. Breath sounds are equal bilaterally. Cardiovascular: Tachycardic. Heart rate 120. GI: Soft, nondistended and nontender. Bowel sounds are present. Musculoskeletal: The anterior portion of the left ashford shows large skin avulsion extending from the knee all the way down to the anterior ankle. There is surrounding erythema and tenderness particularly in the lateral lower portion. No fluctuance or induration is noted in that area. No bony tenderness. Integumentary: No cyanosis. or jaundice. Neurological: The patient is awake and alert. No focal deficits. Psychiatric: Normal affect. Not anxious appearing. Course Administered Medications Heparin Sodium (Porcine) (Heparin Sod 5,000 Unit/0.5 Ml Vial) 5,000 units SQ Q12 [facility] Stop: 06/08/20 20:59 Last Admin: 05/09/20 21:07 Dose: Not Given Documented by: [id number] Dextrose/Sodium Chloride (D5w And 1/2nss) 1,000 mls @ 100 mls/hr IV .Q10H [facility] Stop: 06/08/20 20:21 Last Admin: 05/09/20 21:02 Dose: 100 mls/hr Documented by: [id number] Thiamine HCl 100 mg/ Syringe 10 mls @ 2 mls[facility] [place] Protocol Stop: 06/08/20 20:59 Last Admin: 05/09/20 21:07 Dose: Not Given Documented by: [id number] Magnesium Sulfate/Dextrose (Magnesium Sulfate / D5w) 1 gm in 100 mls @ 50 mls/hr IV Q2H [facility] Stop: 05/10/20 00:59 Last Admin: 05/09/20 23:22 Dose: 50 mls/hr Documented by: [id number] Infusion: 05/09/20 23:06 Dose: 50 mls/hr Documented by: [id number] Admin: 05/09/20 21:06 Dose: 50 mls/hr Documented by: [id number] Vancomycin HCl 1,750 mg/ (Sodium Chloride) 535 mls @ 200 mls/hr IV NOW ONE Stop: 05/09/20 23:40 Last Admin: 05/09/20 21:06 Dose: 200 mls/hr Documented by: [id number] Discontinued Medications Diphtheria/Pertussis/Tetanus Vacc (Diphtheria/Tetanus/Pertussis 0.5 Ml Syr/Vial) 0.5 ml IM .ONCE ONE Stop: 05/09/20 17:12 Last Admin: 05/09/20 18:20 Dose: 0.5 ml Documented by: [id number] Gabapentin (Gabapentin 400 Mg Cap) 800 mg PO NOW ONE Stop: 05/09/20 21:01 Last Admin: 05/09/20 21:59 Dose: 800 mg Documented by: [id number] Ceftriaxone Sodium (Rocephin) 2,000 mg in 70 mls @ 140 mls/hr IV NOW STA Stop: 05/09/20 17:40 Last Infusion: 05/09/20 18:49 Dose: 0 mls/hr Documented by: [id number] Admin: 05/09/20 18:19 Dose: 140 mls/hr Documented by: [id number] Medical Decision Making Differential Diagnosis Skin avulsion, wound infection, abscess, bacteremia, sepsis Medical Records Attestation: I reviewed the patient's medical records. I did perform a limited focused review of portions of the patient's old chart on the electronic medical record. The patient was admitted 2 months ago for strokelike symptoms. Home Medications Current Medication List: was personally reviewed by me Laboratory Data Attestation: I reviewed the patient's lab results. Result diagrams: 05/09/20 17:45 05/09/20 17:45 Lab Results 05/09/20 05/09/20 05/09/20 Range/Units 17:45 17:45 17:45 WBC 5.37 (4.8-10.8) K/uL RBC 4.07 L (4.7-6.1) M/uL Hgb 12.9 L (14.0-18.0) g/dL Hct 37.5 L (42-52) % MCV 92.1 (80-100) fL MCH 31.7 (25-34) pg MCHC 34.4 (32-36) g/dL RDW Std Deviation 46.8 H (36.4-46.3) fL RDW Coeff of Martir 13.8 (11.5-14.5) % Plt Count 121 L (130-400) K/uL MPV 10.0 (7.4-10.4) fL Immature Gran % (Auto) 0.2 % Neut % (Auto) 48.5 % Lymph % (Auto) 37.4 % Amite % (Auto) 10.8 % Eos % (Auto) 2.2 % Baso % (Auto) 0.9 % Neut # (Auto) 2.60 (1.4-6.5) K/uL Lymph # (Auto) 2.01 (1.2-3.4) K/uL Amite # (Auto) 0.58 (0.11-0.59) K/uL Eos # (Auto) 0.12 (0-0.5) K/uL Baso # (Auto) 0.05 (0-0.2) K/uL Immature Gran # (Auto) 0.01 (0.00-0.02) K/uL PT (9.0-12.0) Seconds INR (0.9-1.1) APTT (21.0-31.0) Seconds PTT Ratio Sodium 138 (136-145) mmol/L Potassium 3.9 (3.5-5.1) mmol/L Chloride 104 (98-107) mmol/L Carbon Dioxide 25 (21-32) mmol/L Anion Gap 9.0 (3-11) BUN 9 (7-18) mg/dl Creatinine 0.90 (0.6-1.4) mg/dl Est Cr Clr Drug Dosing Not Reportable Est GFR ( Amer) 111.0 Est GFR (Non-Af Amer) 95.8 BUN/Creatinine Ratio 10.2 (10-20) Glucose 102 H (70-99) mg/dl Lactate 3.5 H* (0.4-2.0) mmol/L Calcium 9.1 (8.5-10.1) mg/dl Magnesium 1.3 L (1.8-2.4) mg/dl Total Bilirubin 0.3 (0.2-1) mg/dl AST 69 H (15-37) U/L ALT 85 H (12-78) U/L Alkaline Phosphatase 125 H (45-117) U/L Total Protein 7.5 (6.4-8.2) gm/dl Albumin 3.2 L (3.4-5.0) gm/dl Globulin 4.3 H (2.5-4.0) gm/dl Albumin/Globulin Ratio 0.7 L (0.9-2) 05/09/20 Range/Units 17:45 WBC (4.8-10.8) K/uL RBC (4.7-6.1) M/uL Hgb (14.0-18.0) g/dL Hct (42-52) % MCV (80-100) fL MCH (25-34) pg MCHC (32-36) g/dL RDW Std Deviation (36.4-46.3) fL RDW Coeff of Martir (11.5-14.5) % Plt Count (130-400) K/uL MPV (7.4-10.4) fL Immature Gran % (Auto) % Neut % (Auto) % Lymph % (Auto) % [place] % (Auto) % Eos % (Auto) % Baso % (Auto) % Neut # (Auto) (1.4-6.5) K/uL Lymph # (Auto) (1.2-3.4) K/uL Amite # (Auto) (0.11-0.59) K/uL Eos # (Auto) (0-0.5) K/uL Baso # (Auto) (0-0.2) K/uL Immature Gran # (Auto) (0.00-0.02) K/uL PT 10.3 (9.0-12.0) Seconds INR 1.0 (0.9-1.1) APTT 27.1 (21.0-31.0) Seconds PTT Ratio 1.0 Sodium (136-145) mmol/L Potassium (3.5-5.1) mmol/L Chloride (98-107) mmol/L Carbon Dioxide (21-32) mmol/L Anion Gap (3-11) BUN (7-18) mg/dl Creatinine (0.6-1.4) mg/dl Est Cr Clr Drug Dosing Est GFR ( Amer) Est GFR (Non-Af Amer) BUN/Creatinine Ratio (10-20) Glucose (70-99) mg/dl Lactate (0.4-2.0) mmol/L Calcium (8.5-10.1) mg/dl Magnesium (1.8-2.4) mg/dl Total Bilirubin (0.2-1) mg/dl AST (15-37) U/L ALT (12-78) U/L Alkaline Phosphatase (45-117) U/L Total Protein (6.4-8.2) gm/dl Albumin (3.4-5.0) gm/dl Globulin (2.5-4.0) gm/dl Albumin/Globulin Ratio (0.9-2) Imaging Data Radiologist's Impression: LEFT TIBIA AND FIBULA 2 VIEWS CLINICAL HISTORY: Left leg injury. Foreign body assessment. FINDINGS: AP and lateral views of the left tibia and fibula are obtained. No prior studies are available for comparison at the time of dictation. The skeletal structures are well mineralized. There is no radiographic evidence of left tibial or fibular fracture. The knee and ankle joints are grossly maintained. Soft tissue edema is noted throughout the left lower extremity. No radiodense foreign body is identified. There are small dorsal and plantar calcaneal enthesophytes. IMPRESSION: 1. Soft tissue edema with no radiographic evidence of left tibial or fibular fracture. 2. No radiodense foreign body is identified. Electronically signed by: Josh Salinas M.D. 05/09/2020 5:42 PM Dictated: 05/09/201740 Transcribed: 05/09/201740 ECG Data Attestation: I personally reviewed and interpreted this ECG as follows: Indication: + tachycardia Rate (beats per minute): 105 Rhythm: + sinus tachycardia ECG Findings: + Peaked T waves and + LVH; no PVCs Comparison ECG Date: from (February 26, 2020) Change: no significant change Blood Pressure Blood Pressure Findings: Elevated blood pressure Blood Pressure Disposition: Referred to patients primary care provider MDM Narrative I did evaluate the patient as noted above. The patient is presenting with a infected wound to his left leg. IV access was established. I did place an order for continuous cardiac monitoring. The monitor showed sinus tachycardia rate of 120. I did order and personally review the patient's 12-lead EKG as described above. I did treat the patient with Adacel 0.5 mL IM. After blood cultures were drawn I did order Rocephin 2 g IV. I did order and review the patient's blood work as noted in the electronic medical record. His white count is not elevated but his lactate is. Hemoglobin is 12.9. Electrolytes are unremarkable. No signs of acidosis. I did order an x-ray of the left tib-fib. I did review the images myself as well as the radiology report as described above. There is no evidence of fracture or dislocation. Because the patient has a history of alcohol abuse and has not appeared to be taking care of his wound well I did feel it was a risk sending him home for outpatient follow-up. It is unclear if he would reliably follow-up with somebody and I did not wish for infection to get worse so I did recommend hospitalization. He was agreeable with this plan. I did discuss the case with the hospitalist and child welfare caseworker. Impression & Plan Traumatic open wound of right lower leg with infection, Alcohol dependence Discharge Plan Visit Data Chief Complaint: Leg Injury/Pain Stated Complaint: OPEN WOUND ON L [place] ED Provider: Brandt Tilley Discharge Problem: Traumatic open wound of right lower leg with infection, Alcohol dependence Patient Disposition: Admitted As Inpatient Discharge Instructions Interventions: ED Discharge Assessment Last Done: 05/09/20 20:08
--- NOTE | 2020-05-09 17:44 | XRay Report ---
LEFT TIBIA AND FIBULA 2 VIEWS CLINICAL HISTORY: Left leg injury. Foreign body assessment. FINDINGS: AP and lateral views of the left tibia and fibula are obtained. No prior studies are availa ble for comparison at the time of dictation. The skeletal structures are well mineralized. There is n o radiographic evidence of left tibial or fibular fracture. The knee and ankle joints are grossly dylon ntained. Soft tissue edema is noted throughout the left lower extremity. No radiodense foreign body i s identified. There are small dorsal and plantar calcaneal enthesophytes. IMPRESSION: 1. Soft tissue edema with no radiographic evidence of left tibial or fibular fracture. 2. No radiodense foreign body is identified. Electronically signed by: Josh Salinas M.D. 05/09/2020 5:42 PM
[2020-05-09 17:58] LABS: Basophils # (auto) 0.05 K/uL (0-0.2); Basophils % (auto) 0.9 %; Eosinophils # (auto) 0.12 K/uL (0-0.5); Eosinophils % (auto) 2.2 %; Hematocrit (blood only) 37.5 % (42-52); Hemoglobin 12.9 g/dL (14.0-18.0); Immature Granulocytes # (auto) 0.01 K/uL (0.00-0.02); Immature Granulocytes % (auto) 0.2 %; Lymphocytes # (auto) 2.01 K/uL (1.2-3.4); Lymphocytes % (auto) 37.4 %; Mean Corpuscular Hemoglobin 31.7 pg (25-34); Mean Corpuscular Hgb Conc 34.4 g/dL (32-36); Mean Corpuscular Volume 92.1 fL (80-100); Monocytes # (auto) 0.58 K/uL (0.11-0.59); Monocytes % (auto) 10.8 %; Neutrophils % (auto) 48.5 %; Platelet Count 121 K/uL (130-400); RDW Coefficient of Variation 13.8 % (11.5-14.5); RDW Standard Deviation 46.8 fL (36.4-46.3); Red Blood Count 4.07 M/uL (4.7-6.1); White Blood Count 5.37 K/uL (4.8-10.8)
[2020-05-09 18:07] LABS: Partial Thromboplastin Time 27.1 Seconds (21.0-31.0); Prothrombin Time 10.3 Seconds (9.0-12.0)
[2020-05-09 18:25] LABS: Alanine Aminotransferase 85 U/L (12-78); Albumin Level 3.2 gm/dl (3.4-5.0); Aspartate Aminotransferase 69 U/L (15-37); BUN Creatinine Ratio 10.2 (10-20); Blood Urea Nitrogen 9 mg/dl (7-18); Calcium 9.1 mg/dl (8.5-10.1); Carbon Dioxide 25 mmol/L (21-32); Chloride 104 mmol/L (98-107); Est GFR (Non-African American) 95.8; Glucose 102 mg/dl (70-99); Magnesium 1.3 mg/dl (1.8-2.4); Potassium 3.9 mmol/L (3.5-5.1); Sodium 138 mmol/L (136-145)
[2020-05-09 18:28] LABS: Albumin Globulin Ratio 0.7 (0.9-2); Alkaline Phosphatase 125 U/L (45-117); Bilirubin,Total 0.3 mg/dl (0.2-1); Globulin 4.3 gm/dl (2.5-4.0); Total Protein 7.5 gm/dl (6.4-8.2)
[2020-05-09] MEDS ORDERED: VANCOMYCIN CONSULT ACTIVE PRN (20:22)
[2020-05-09] MEDS ORDERED: LORazepam 1 MG/2 ML VIAL IV PRN (20:22)
[2020-05-09] MEDS ORDERED: ACETAMINOPHEN 325 MG TAB PO PRN (20:22)
[2020-05-09] MEDS ORDERED: LORazepam 2 MG/4 ML VIAL IV PRN (20:22)
[2020-05-09] MEDS ORDERED: GABAPENTIN 800MG ALCOHOL WITHDRAWAL LOAD PO STA (20:22)
[2020-05-09] MEDS ORDERED: ONDANSETRON INJ 2 MG/ML 2 ML VIAL IV PRN (20:22)
[2020-05-09] MEDS ORDERED: LORazepam 3 MG/6 ML VIAL IV PRN (20:22)
[2020-05-09] MEDS ORDERED: ATIVAN IV ALCOHOL WITHDRAWL IV PRN (20:22)
[2020-05-09] MEDS ORDERED: PIPERACILL/TAZOBAC CONSULT ACTIVE PRN (20:22)
[2020-05-09] MEDS ORDERED: GABAPENTIN 400 MG CAP PO ONE (21:00)
[2020-05-09] MEDS ORDERED: VANCOMYCIN HCL 1,750 MG in SODIUM CHLORIDE 0.9% 500 ML IV ONE (21:00)
[2020-05-09] MEDS ORDERED: PIPERACILLIN/TAZOBACTAM 3.375 GM in DEXTROSE 5% 100 ML IV ONE (21:00)
[2020-05-09] MEDS: D5W AND 1/2NSS 1,000 ML IV SCH (21:02)
[2020-05-09] MEDS: MAGNESIUM SULFATE / D5W 1 GM/100 ML BAG IV SCH ×2 (21:06→23:22)
[2020-05-09] MEDS: THIAMINE HCL 100 MG in SYRINGE 9 ML IV SCH (21:07)
[2020-05-09] MEDS: HEPARIN SOD 5,000 UNIT/0.5 ML VIAL SQ SCH (21:07)
--- NOTE | 2020-05-09 21:17 | Pharmacy Report ---
Pharmacy Abx Dose Short Note - Date of Service May 09, 2020 - Assessment & Plan Assessment 54 year old M receiving VANCOMYCIN/ZOSYN for treatment of LEG INFECTION Day # 1 of antimicrobial therapy. Plan Vancomycin * Patient meets criteria for vancomycin AUC dosing nomogram * AUC/CHIOMA is the preferred PK/PD target for vancomycin * Target AUC/CHIOMA = 400-600 * AUC guided dosing is effective and associated with decreased risk of nephrotoxicity ZOSYN * 3.375 GM IV X 1 THEN START 3.375 GM IV Q8 HOURS EXTENDED INFUSION. Pharmacy will continue to follow and will adjust dose/frequency as necessary. Thank you.
--- NOTE | 2020-05-09 22:50 | History and Physical Report ---
DATE OF ADMISSION: 05/09/2020 CHIEF COMPLAINT: Left lower extremity wound. 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 On [place] piece of wood came down on his left leg peeling off large portion of his skin. Today in the morning when he got up, he is having difficulty ambulating and putting weight on the leg causing severe pain and some having ambulatory dysfunction. Currently resting comfortably and hemodynamically stable. There is a large wound in his left ashford region with mild drainage. The patient is afebrile in the ER and no leukocytosis. The patient drinks alcohol 4-5 beers most of the days. Denies any smoking or drug use. Lives alone. Says he is otherwise doing okay. Denies any headache. No dizziness, no blurred vision, no earache, no runny nose, no sore throat. Appetite is okay. No difficulty swallowing. No loss of sense of smell or taste. No exposure to any COVID patient. Denies chest pain. No shortness of breath, no cough. No nausea, no vomiting, no abdominal pain. Normal bowel and bladder movements. ALLERGIES: No known drug allergies. PAST MEDICAL HISTORY: As mentioned above. PAST SURGICAL HISTORY: Colonoscopy. MEDICATIONS: The patient is on aspirin 81 mg p.o. daily, lisinopril 20 mg p.o. daily, folic acid 1 mg p.o. daily. FAMILY HISTORY: Significant for mother had breast cancer, heart disease. Father has coronary artery disease, diabetes. Brother has diabetes. SOCIAL HISTORY: Single. No smoking. Chews tobacco. Alcohol, drinks 4-5 beers every day. No drug use. REVIEW OF SYMPTOMS: As per HPI. Rest of the review of symptoms negative. PHYSICAL EXAMINATION: GENERAL: The patient is of moderate build, not in acute distress. VITAL SIGNS: Temperature 36.7, pulse 99, respiratory rate 22, blood pressure 114/80, oxygen 96% on room air. HEENT: Pupils equal, round, reactive to light. Oral mucosa moist. NECK: No JVD, no neck masses. CARDIOVASCULAR SYSTEM: S1, S2 heard. Regular rate and rhythm. No murmur, no gallop. RESPIRATORY SYSTEM: Normal AP diameter. No accessory muscle use. No wheezing, no crackles. ABDOMEN: Soft, bowel sounds present, nontender. No distention. CENTRAL NERVOUS SYSTEM: Cranial nerves II-XII grossly intact. Nonfocal. EXTREMITIES: Left ash[place] has a open long wound with some mild drainage. LABORATORY DATA: WBC is 5.3, hemoglobin 12.9, hematocrit 37.5, platelets 121. PT 10.3, INR 1, APTT 27.1. Sodium 138, potassium 3.9, chloride 104, bicarb 25, BUN 9, creatinine 0.9, serum glucose 102, lactate 3.5 and repeat 2.4, calcium 9.1, magnesium 1.3. Total bilirubin 0.3, AST 69, alkaline phosphatase 125. Tibia, fibula x-ray on the left side with soft tissue edema with no radiographic evidence of left tibia or fibular fracture. No radiodense foreign bodies identified. EKG: Sinus tachycardia at a rate of 105, no acute ST changes seen. ASSESSMENT AND PLAN: This is a 54-year-old male who presents with left [place] wound. 1. Left [place] wound secondary to when [place] wood in the forest, a large piece of wood came down on his left leg. Currently hemodynamically stable. No leukocytosis. His lactate is elevated mostly secondary to his alcoholism. We will start him on IV vancomycin and Zosyn. Follow the cultures. IV fluids. Wound care. Closely monitor in the hospital. 2. Alcoholism. banana bag, IV thiamine and folic acid. Gabapentin protocol with IV Ativan p.r.n. We will closely monitor for any withdrawals. 3. Hypertension. Continue his home lisinopril. Monitor his blood pressure. 4. Deep venous thrombosis prophylaxis. hep sub q 5. His elevated transaminitis is most likely from alcoholism. We will follow the repeat levels. 6. Thrombocytopenia and anemia, most likely secondary to alcoholism. We will follow the repeat levels. 7. Hypomagnesemia. Will replace. DISPOSITION: Closely monitor in the hospital. Level 1 full code. Expect to discharge home and follow with his family doctor. MELISSA
[2020-05-09] MEDS ORDERED: MULTI-VITAMIN INFUSION 10 ML, THIAMINE HCL 100 MG, FOLIC ACID 1 MG in SODIUM CHLORIDE 0... IV ONE (23:00)
[2020-05-10] MEDS ORDERED: PIPERACILLIN/TAZOBACTAM 3.375 GM in DEXTROSE 5% 100 ML IV ONE
[2020-05-10] MEDS: GABAPENTIN 400 MG CAP PO SCH ×3 (04:06→17:04)
[2020-05-10 05:45] LABS: Hematocrit (blood only) 35.7 % (42-52); Hemoglobin 12.2 g/dL (14.0-18.0); Mean Corpuscular Hemoglobin 31.9 pg (25-34); Mean Corpuscular Hgb Conc 34.2 g/dL (32-36); Mean Corpuscular Volume 93.5 fL (80-100); Platelet Count 104 K/uL (130-400); RDW Coefficient of Variation 13.9 % (11.5-14.5); RDW Standard Deviation 47.4 fL (36.4-46.3); Red Blood Count 3.82 M/uL (4.7-6.1); White Blood Count 5.41 K/uL (4.8-10.8)
[2020-05-10] MEDS: VANCOMYCIN HCL 1,000 MG in SODIUM CHLORIDE 0.9% 250 ML IV SCH ×3 (05:50→21:53)
[2020-05-10] MEDS: PIPERACILLIN/TAZOBACTAM 3.375 GM in DEXTROSE 5% 100 ML IV SCH ×3 (05:50→21:53)
[2020-05-10 06:11] LABS: Albumin Level 2.6 gm/dl (3.4-5.0); BUN Creatinine Ratio 7.9 (10-20); Bilirubin Direct 0.1 mg/dl (0-0.2); Calcium 7.9 mg/dl (8.5-10.1); Creatinine Clr Calc Pharmacy 99.7 ml/min; Est GFR (Non-African American) 100.1; Magnesium 1.7 mg/dl (1.8-2.4); Potassium 4.2 mmol/L (3.5-5.1)
[2020-05-10 06:20] LABS: Bilirubin,Total 0.5 mg/dl (0.2-1); Total Protein 6.1 gm/dl (6.4-8.2)
[2020-05-10] MEDS ORDERED: ACETAMINOPHEN 325 MG TAB PO PRN (07:10)
[2020-05-10] MEDS: D5W AND 1/2NSS 1,000 ML IV SCH (07:36)
[2020-05-10] MEDS ORDERED: MAGNESIUM SULFATE / D5W 1 GM/100 ML BAG IV ONE (07:45)
[2020-05-10] MEDS: ASPIRIN 81 MG ECTAB PO SCH (08:33)
[2020-05-10] MEDS: lisinopriL 20 MG TAB PO SCH (08:33)
[2020-05-10] MEDS: FOLIC ACID 1 MG TAB PO SCH (08:33)
[2020-05-10] MEDS: THIAMINE HCL 100 MG in SYRINGE 9 ML IV SCH (08:34)
--- NOTE | 2020-05-10 08:47 | Hospitalist Progress Note ---
Date of Service May 10, 2020 Assessment & Plan (1) Wound of left leg: -Patient denies drug allergies. He was not on any oral antibiotics for the left leg injury which took place on Monday05/06/2020 when patient's leg struck by log when he was wood chopping. In the ED on 05/09/2020, patient received TDAP and IV antibiotics. Continue empiric IV Zosyn and IV vancomycin for now -There is a long eschar running down below the left knee to lower part of left ashford. There does not appear to be swelling or drainage at this time. The leg is to be dressed again by the nurse. Patient currently on IV antibiotics and IV magnesium. Because of the extensive nature of the leg injury and hypomagnesemia, patient to be upgraded from initial observation to full admission status as of 05/10/2020 -wound care -PT/OT evaluations -follow the cultures -elevated lactic acid of 3.5 on 05/09/2020 resolved with IV fluids (2) Hypomagnesemia: -serum magnesium 1.3 on 05/09/2020 -improving with supplementation, target serum magnesium is 2 History of alcohol use -has been given banana bag, IV thiamine and folic acid -there is gabapentin protocol with IV Ativan p.r.n. -but no signs of alcohol withdrawal at this time mild Transaminitis -improving Anemia Thrombocytopenia -monitor the labs Hypertension -Continue his home lisinopril Deep venous thrombosis prophylaxis -heparin subcutaneous 5000 units q12 hours for now Full code Admission and Anticipated Discharge Date Admission Date: May 09, 2020 Subjective There is a long eschar running down below the left knee to lower part of left [place]. There does not appear to be swelling or drainage at this time. The leg is to be dressed again by the nurse. Patient currently on IV antibiotics and IV magnesium. Because of the extensive nature of the leg injury and hypomagnesemia, patient to be upgraded from initial observation to full admission status as of 05/10/2020 Patient denies drug allergies. He was not on any oral antibiotics for the left leg injury which took place on Monday05/06/2020 when patient's leg struck by log when he was wood chopping. In the ED on 05/09/2020, patient received TDAP and IV antibiotics. Continue empiric IV Zosyn and IV vancomycin for now No signs of alcohol withdrawal symptoms at this time. Patient does not have fever currently. no chest pain. no abdomen pain no shortness of breath. on room air Review of Systems Review of Systems: All systems reviewed & are unremarkable except as noted in Subjective Physical Exam Constitutional: cooperative and comfortable Eyes: PERRL, conjunctivae normal, anicteric sclerae EOM intact bilaterally ENMT: external ear and nose normal, oropharynx normal Neck: trachea midline, no thyromegaly normal visual inspection Respiratory: normal respiratory effort, lungs clear to auscultation Cardiovascular: Rate/Rhythm: regular rate and regular rhythm Gastrointestinal (Abdomen): normal bowel sounds, soft, nontender, no hepatosplenomegaly Musculoskeletal: Head/Neck/Chest: normocephalic There is a long eschar running down below the left knee to lower part of left [place]. There does not appear to be swelling or drainage at this time Neurologic: PERRL, EOMI, accommodation nl, no face palsy, no dysarthria CN's II-XI intact bilaterally Psychiatric: A+Ox3, euthymic affect Results & Data Results & Data ([facility]) Vital Signs (Past 12 Hours) Vital Signs Temp Pulse Resp BP Pulse Ox 05/10/20 07:47 36.8 C 91 H 18 163/88 H 99 05/10/20 06:24 94 05/10/20 04:00 36.9 C 84 16 150/89 H 96 05/10/20 00:00 36.9 C 84 18 137/87 95 05/09/20 23:14 36.9 C 85 18 131/81 98 05/09/20 20:43 36.7 C 97 H 16 129/79 96
[2020-05-10] MEDS ORDERED: MAGNESIUM OXIDE 400 MG TAB PO SCH (09:00)
[2020-05-10] MEDS: HEPARIN SOD 5,000 UNIT/0.5 ML VIAL SQ SCH ×2 (09:00→21:50)
--- NOTE | 2020-05-10 11:12 | Electrocardiogram Report ---
Test Reason : Blood Pressure : / mmHG Vent. Rate : 105 BPM Atrial Rate : 105 BPM P-R Int : 136 ms QRS Dur : 086 ms QT Int : 324 ms P-R-T Axes : 025 -04 017 degrees QTc Int : 428 ms Poor data quality, interpretation may be adversely affected Sinus tachycardia Minimal voltage criteria for LVH, may be normal variant Abnormal ECG Confirmed by Casey Ahn [id number] on 05/10/2020 11:11:50 AM Referred By: REFERRED SELF Confirmed By:Tex Ahn
[2020-05-11] MEDS: GABAPENTIN 400 MG CAP PO SCH ×3 (02:02→21:18)
[2020-05-11 05:42] LABS: Basophils # (auto) 0.03 K/uL (0-0.2); Basophils % (auto) 0.7 %; Eosinophils % (auto) 4.8 %; Hematocrit (blood only) 38.8 % (42-52); Lymphocytes # (auto) 0.92 K/uL (1.2-3.4); Lymphocytes % (auto) 22.1 %; Mean Corpuscular Hemoglobin 31.6 pg (25-34); Mean Corpuscular Hgb Conc 33.5 g/dL (32-36); Mean Corpuscular Volume 94.2 fL (80-100); Mean Platelet Volume 9.7 fL (7.4-10.4); Monocytes % (auto) 14.4 %; Neutrophils # (auto) 2.41 K/uL (1.4-6.5); Platelet Count 121 K/uL (130-400); RDW Coefficient of Variation 13.9 % (11.5-14.5); RDW Standard Deviation 47.3 fL (36.4-46.3); Red Blood Count 4.12 M/uL (4.7-6.1); White Blood Count 4.16 K/uL (4.8-10.8)
[2020-05-11] MEDS: VANCOMYCIN HCL 1,000 MG in SODIUM CHLORIDE 0.9% 250 ML IV SCH ×2 (05:51→14:57)
[2020-05-11] MEDS: PIPERACILLIN/TAZOBACTAM 3.375 GM in DEXTROSE 5% 100 ML IV SCH ×3 (05:52→21:16)
[2020-05-11 06:14] LABS: RBC Morphology Unremarkable
[2020-05-11 06:20] LABS: Albumin Level 2.7 gm/dl (3.4-5.0); BUN Creatinine Ratio 7.7 (10-20); Calcium 9.4 mg/dl (8.5-10.1); Est GFR (African American) 96.6; Est GFR (Non-African American) 83.3; Magnesium 1.6 mg/dl (1.8-2.4); Potassium 4.4 mmol/L (3.5-5.1)
[2020-05-11 06:24] LABS: Albumin Globulin Ratio 0.7 (0.9-2); Bilirubin,Total 0.7 mg/dl (0.2-1); Globulin 3.9 gm/dl (2.5-4.0); Total Protein 6.6 gm/dl (6.4-8.2)
[2020-05-11] MEDS ORDERED: SODIUM CHLORIDE 0.9% 1000ML 1,000 ML IV SCH (07:15)
[2020-05-11] MEDS: MAGNESIUM SULFATE / D5W 1 GM/100 ML BAG IV SCH ×2 (07:38→09:41)
[2020-05-11] MEDS: THIAMINE HCL 100 MG in SYRINGE 9 ML IV SCH (07:41)
[2020-05-11] MEDS: MAGNESIUM OXIDE 400 MG TAB PO SCH ×2 (07:42→19:46)
[2020-05-11] MEDS: ASPIRIN 81 MG ECTAB PO SCH (07:42)
[2020-05-11] MEDS: FOLIC ACID 1 MG TAB PO SCH (07:42)
[2020-05-11] MEDS: lisinopriL 20 MG TAB PO SCH (07:42)
[2020-05-11] MEDS: HEPARIN SOD 5,000 UNIT/0.5 ML VIAL SQ SCH ×2 (07:43→21:20)
--- NOTE | 2020-05-11 08:22 | Hospitalist Progress Note ---
Date of Service May 11, 2020 Assessment & Plan (1) Wound of left leg: -Patient denies drug allergies. He was not on any oral antibiotics for the left leg injury which took place on Monday05/06/2020 when patient's leg struck by log when he was wood chopping. In the ED on 05/09/2020, patient received TDAP and IV antibiotics. started on empiric IV Zosyn and IV vancomycin for now -elevated lactic acid of 3.5 on 05/09/2020 resolved with IV fluids -05/11/2020 There is a long eschar/scabbing running down below the left knee to lower part of left [place]. There does not appear to be swelling or drainage at this time. The leg is to be dressed again by the nurse. Patient currently on IV antibiotics and IV magnesium. Because of the extensive nature of the leg injury and hypomagnesemia, patient to be upgraded from initial observation to full admission status as of 05/10/2020 -05/12/2020 continue IV Zosyn for now, vancomycin on 05/11/2020 to be held for now until vanc trough drawn and also further assessment needed whether vancomycin still needed in the context of mildly rising creatinine from 0.8 to 1. Patient also resumed IV fluids -follow the cultures -wound care -PT/OT evaluations (2) Hypomagnesemia: -serum magnesium 1.3 on 05/09/2020 -improving with supplementation -serum magnesium is 1.6 on 05/11/2020 and patient to get further oral and IV magnesium supplementation History of alcohol use -has been given banana bag, IV thiamine and folic acid -there is gabapentin protocol with IV Ativan p.r.n. -but no signs of alcohol withdrawal at this time mild Transaminitis -improving Anemia Thrombocytopenia -monitor the labs Hypertension -Continue his home lisinopril Deep venous thrombosis prophylaxis -heparin subcutaneous 5000 units q12 hours for now Full code Admission and Anticipated Discharge Date Admission Date: May 10, 2020 Subjective continue IV Zosyn for now, vancomycin on 05/11/2020 to be held for now until vanc trough drawn and also further assessment needed whether vancomycin still needed in the context of mildly rising creatinine from 0.8 to 1. Patient also resumed IV fluids patient denies acute distress. no chest pain. no abdomen pain. no dizziness. no fevers overnight. he agrees for further leg wound assessments inpatient and IV antibiotics with lab monitoring and inpatient management of the hypomagnesemia. Review of Systems Review of Systems: All systems reviewed & are unremarkable except as noted in Subjective Physical Exam Constitutional: cooperative and comfortable Eyes: PERRL, conjunctivae normal, anicteric sclerae EOM intact bilaterally ENMT: external ear and nose normal, oropharynx normal Neck: trachea midline, no thyromegaly normal visual inspection Respiratory: normal respiratory effort, lungs clear to auscultation Cardiovascular: Rate/Rhythm: regular rate and regular rhythm Gastrointestinal (Abdomen): normal bowel sounds, soft, nontender, no hepatosplenomegaly Musculoskeletal: Head/Neck/Chest: normocephalic left leg in dressing Neurologic: PERRL, EOMI, accommodation nl, no face palsy, no dysarthria CN 's II-XI intact bilaterally Psychiatric: A+Ox3, euthymic affect Results & Data Results & Data ([facility]) Vital Signs (Past 12 Hours) Vital Signs Temp Pulse Resp BP Pulse Ox 05/11/20 07:29 36.7 C 74 18 125/78 98 05/11/20 04:19 36.5 C 69 16 135/91 97 05/11/20 00:24 36.7 C 69 15 122/79 97
[2020-05-11] MEDS ORDERED: VANCOMYCIN TROUGH ONE (13:30)
[2020-05-12] MEDS: PIPERACILLIN/TAZOBACTAM 3.375 GM in DEXTROSE 5% 100 ML IV SCH (05:48)
[2020-05-12 05:54] LABS: Basophils # (auto) 0.04 K/uL (0-0.2); Basophils % (auto) 0.7 %; Eosinophils # (auto) 0.39 K/uL (0-0.5); Eosinophils % (auto) 6.8 %; Hemoglobin 13.4 g/dL (14.0-18.0); Immature Granulocytes # (auto) 0.02 K/uL (0.00-0.02); Immature Granulocytes % (auto) 0.3 %; Lymphocytes # (auto) 1.71 K/uL (1.2-3.4); Lymphocytes % (auto) 29.8 %; Mean Corpuscular Hemoglobin 31.9 pg (25-34); Mean Corpuscular Hgb Conc 33.5 g/dL (32-36); Mean Corpuscular Volume 95.2 fL (80-100); Monocytes # (auto) 1.03 K/uL (0.11-0.59); Monocytes % (auto) 17.9 %; Neutrophils # (auto) 2.55 K/uL (1.4-6.5); Neutrophils % (auto) 44.5 %; Platelet Count 152 K/uL (130-400); RDW Standard Deviation 48.7 fL (36.4-46.3); White Blood Count 5.74 K/uL (4.8-10.8)
[2020-05-12 06:24] LABS: Albumin Level 3.1 gm/dl (3.4-5.0); BUN Creatinine Ratio 11.9 (10-20); Calcium 9.2 mg/dl (8.5-10.1); Creatinine Clr Calc Pharmacy 77.6 ml/min; Est GFR (African American) 93.2; Est GFR (Non-African American) 80.5; Magnesium 1.6 mg/dl (1.8-2.4); Potassium 3.8 mmol/L (3.5-5.1)
[2020-05-12 06:26] LABS: Albumin Globulin Ratio 0.8 (0.9-2); Bilirubin,Total 0.6 mg/dl (0.2-1); Globulin 3.9 gm/dl (2.5-4.0)
[2020-05-12] MEDS: MAGNESIUM SULFATE / D5W 1 GM/100 ML BAG IV SCH ×2 (07:32→09:05)
--- NOTE | 2020-05-12 08:06 | Hospitalist Progress Note ---
Date of Service May 12, 2020 Assessment & Plan (1) Wound of left leg: -Patient denies drug allergies. He was not on any oral antibiotics for the left leg injury which took place on Monday05/06/2020 when patient's leg struck by log when he was wood chopping. In the ED on 05/09/2020, patient received TDAP and IV antibiotics. started on empiric IV Zosyn and IV vancomycin for now -elevated lactic acid of 3.5 on 05/09/2020 resolved with IV fluids -05/10/2020 There is a long eschar/scabbing running down below the left knee to lower part of left [place]. There does not appear to be swelling or drainage at this time. The leg is to be dressed again by the nurse. Patient currently on IV antibiotics and IV magnesium. Because of the extensive nature of the leg injury and hypomagnesemia, patient to be upgraded from initial observation to full admission status as of 05/10/2020 -05/11/2020 continue IV Zosyn for now, vancomycin on 05/11/2020 to be held for now until vanc trough drawn and also further assessment needed whether vancomycin still needed in the context of mildly rising creatinine from 0.8 to 1. Patient also resumed IV fluids -wound care given -passed PT evaluation -the blood cultures no growth as of -05/12/2020: patient had some loose stools. otherwise doing well clinically. no chest pain, no shortness of breath, on room air, no abdomen pain, no nausea, no vomiting. discharge plans and instructions discussed at length with patient and his nurse medication sent electronically to [facility] pharmacy [facility] [place] [address] of Augmentin 500 mg twice a day for 7 days Florastor 250 mg daily to prevent C.difficile while on antibiotic for 7 days Acetaminophen 325 mg. take only if pain or fever, up to every 6 hours as needed (20 tabs prescribed) Magnesium 400 mg twice a marlen for 15 days primary care appointment 05/19/2020 9:00 AM Provider Luly Guajardo PA-C Department [facility] patient should have serum magnesium levels checked and serum CBC Wound Care Discharge Instructions To Left lower leg, wash hands, Using clean wash cloth or paper towel gently was leg with mild soap and water. Do not use antibacterial soap. Pat dry. Apply thin layer of clean Vaseline onto gauze pad and apply to wound. Change every day. Keep wound covered until totally closed Patient may go to [facility] on [address], [place] [address] for further wound care of left leg patient should call to make or confirm appointment (2) Hypomagnesemia: -serum magnesium 1.3 on 05/09/2020, labs show history of chronic hypomagnesemia -improved with supplementation -patient to get another IV magnesium on 05/12/2020 and to continue the oral magnesium twice a day. Follow up with primary care provider as above History of alcohol use -has been given banana bag, IV thiamine and folic acid -there is gabapentin protocol with IV Ativan p.r.n. -but no signs of alcohol withdrawal at this time mild Transaminitis -improving Anemia Thrombocytopenia -follow serum CBC as outpatient Hypertension -Continue his home lisinopril Deep venous thrombosis prophylaxis -heparin subcutaneous 5000 units q12 hours when inpatient Full code Admission and Anticipated Discharge Date Admission Date: May 10, 2020 Subjective patient had some loose stools. otherwise doing well clinically. no chest pain, no shortness of breath, on room air, no abdomen pain, no nausea, no vomiting. discharge plans and instructions discussed at length with patient and his nurse Review of Systems Review of Systems: All systems reviewed & are unremarkable except as noted in Subjective Physical Exam Constitutional: cooperative and comfortable Eyes: PERRL, conjunctivae normal, anicteric sclerae EOM intact bilaterally ENMT: external ear and nose normal, oropharynx normal Neck: trachea midline, no thyromegaly normal visual inspection Respiratory: normal respiratory effort, lungs clear to auscultation Cardiovascular: Rate/Rhythm: regular rate and regular rhythm Gastrointestinal (Abdomen): normal bowel sounds, soft, nontender, no hepatosplenomegaly Musculoskeletal: Head/Neck/Chest: normocephalic Neurologic: PERRL, EOMI, accommodation nl, no face palsy, no dysarthria CN's II-XI intact bilaterally Psychiatric: A+Ox3, euthymic affect Results & Data Results & Data ([facility]) Vital Signs (Past 12 Hours) Vital Signs Temp Pulse Resp BP Pulse Ox 05/12/20 07:07 36.5 C 76 18 136/86 100 05/11/20 23:36 36.8 C 85 16 129/79 96
--- NOTE | 2020-05-12 08:13 | Discharge Summary ---
Date of Service May 12, 2020 Admission HPI Per Admitting Provider DATE OF ADMISSION: 05/09/2020 CHIEF COMPLAINT: Left lower extremity wound. 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 On Monday when he [place] the [place], a large piece of wood came down on his left leg peeling off large portion of his skin. Today in the morning when he got up, he is having difficulty ambulating and putting weight on the leg causing severe pain and some having ambulatory dysfunction. Currently resting comfortably and hemodynamically stable. There is a large wound in his left [place] region with mild drainage. The patient is afebrile in the ER and no leukocytosis. The patient drinks alcohol 4-5 beers most of the days. Denies any smoking or drug use. Lives alone. Says he is otherwise doing okay. Denies any headache. No dizziness, no blurred vision, no earache, no runny nose, no sore throat. Appetite is okay. No difficulty swallowing. No loss of sense of smell or taste. No exposure to any COVID patient. Denies chest pain. No shortness of breath, no cough. No nausea, no vomiting, no abdominal pain. Normal bowel and bladder movements. Principal Diagnosis Wound of left leg Hypomagnesemia Hypertension Thrombocytopenia Alcohol use History Discharge Exam Constitutional cooperative and comfortable Eyes PERRL, conjunctivae normal, anicteric sclerae EOM intact bilaterally ENMT external ear and nose normal, oropharynx normal Neck trachea midline, no thyromegaly normal visual inspection Respiratory normal respiratory effort, lungs clear to auscultation Cardiovascular Rate/Rhythm: regular rate and regular rhythm Gastrointestinal (Abdomen) normal bowel sounds, soft, nontender, no hepatosplenomegaly Musculoskeletal Head/Neck/Chest: normocephalic Neurologic PERRL, EOMI, accommodation nl, no face palsy, no dysarthria CN's II-XI intact bilaterally Psychiatric A+Ox3, euthymic affect Discharge Data Allergies Allergy/AdvReac Type Severity Reaction Status Date / Time No Known Allergies Allergy Verified 05/09/20 18:09 Consultations 05/09/20 18:51 ED Decision to Admit Stat Hospital Course (1) Wound of left leg: -Patient denies drug allergies. He was not on any oral antibiotics for the left leg injury which took place on Monday05/06/2020 when patient's leg struck by log when he was wood chopping. In the ED on 05/09/2020, patient received TDAP and IV antibiotics. started on empiric IV Zosyn and IV vancomycin for now -elevated lactic acid of 3.5 on 05/09/2020 resolved with IV fluids -05/10/2020 There is a long eschar/scabbing running down below the left knee to lower part of left [place]. There does not appear to be swelling or drainage at this time. The leg is to be dressed again by the nurse. Patient currently on IV antibiotics and IV magnesium. Because of the extensive nature of the leg injury and hypomagnesemia, patient to be upgraded from initial observation to full admission status as of 05/10/2020 -05/11/2020 continue IV Zosyn for now, vancomycin on 05/11/2020 to be held for now until vanc trough drawn and also further assessment needed whether vancomycin still needed in the context of mildly rising creatinine from 0.8 to 1. Patient also resumed IV fluids -wound care given -passed PT evaluation -the blood cultures no growth as of -05/12/2020: patient had some loose stools. otherwise doing well clinically. no chest pain, no shortness of breath, on room air, no abdomen pain, no nausea, no vomiting. discharge plans and instructions discussed at length with patient and his nurse medication sent electronically to [facility] pharmacy [facility] [place] [address] of Augmentin 500 mg twice a day for 7 days Florastor 250 mg daily to prevent C.difficile while on antibiotic for 7 days Acetaminophen 325 mg. take only if pain or fever, up to every 6 hours as needed (20 tabs prescribed) Magnesium 400 mg twice a marlen for 15 days primary care appointment 05/19/2020 9:00 AM Provider Luly Guajardo PA-C Department [facility] patient should have serum magnesium levels checked and serum CBC Wound Care Discharge Instructions To Left lower leg, wash hands, Using clean wash cloth or paper towel gently was leg with mild soap and water. Do not use antibacterial soap. Pat dry. Apply thin layer of clean Vaseline onto gauze pad and apply to wound. Change every day. Keep wound covered until totally closed Patient may go to [facility] on [address], [place] [address] for further wound care of left leg patient should call to make or confirm appointment (2) Hypomagnesemia: -serum magnesium 1.3 on 05/09/2020, labs show history of chronic hypomagnesemia -improved with supplementation -patient to get another IV magnesium on 05/12/2020 and to continue the oral magnesium twice a day. Follow up with primary care provider as above History of alcohol use -has been given banana bag, IV thiamine and folic acid -there is gabapentin protocol with IV Ativan p.r.n. -but no signs of alcohol withdrawal at this time mild Transaminitis -improving Anemia Thrombocytopenia -follow serum CBC as outpatient Hypertension -Continue his home lisinopril Deep venous thrombosis prophylaxis -heparin subcutaneous 5000 units q12 hours when inpatient Full code Total Time Total Time Spent Total Time Spent (In Minutes): 40 minutes Total Time Includes: Examination of the Patient, Discharge Planning, Medication Reconciliation and Communication With Other Providers Discharge Plan Discharge Items Patient Disposition: Home - Self-Care Reason For Visit: WOUND INFECTION Discharge Diagnosis: Wound of left leg Hypomagnesemia Hypertension Thrombocytopenia Alcohol use History Condition on Discharge: Good Activity: Per Instructions section Non-emergency contact: Primary Care Provider Call non-emergency contact if: you have any medication questions Follow-up/Referrals: Luly Guajardo PA-C [Primary Care Provider] - Diet: Regular Addtl Attending Provider Instructions: medication sent electronically to [facility] pharmacy [facility] [place] [address] of Augmentin 500 mg twice a day for 7 days Florastor 250 mg daily to prevent C.difficile while on antibiotic for 7 days Acetaminophen 325 mg. take only if pain or fever, up to every 6 hours as needed (20 tabs prescribed) Magnesium 400 mg twice a marlen for 15 days primary care appointment 05/19/2020 9:00 AM Provider Luly Guajardo PA-C Department [facility] patient should have serum magnesium levels checked and serum CBC Addtl Django Developer Provider Instructions: Wound Care Discharge Instructions To Left lower leg, wash hands, Using clean wash cloth or paper towel gently was leg with mild soap and water. Do not use antibacterial soap. Pat dry. Apply thin layer of clean Vaseline onto gauze pad and apply to wound. Change every day. Keep wound covered until totally closed Patient may go to [facility] on [address], [place] [address] for further wound care of left leg patient should call to make or confirm appointment Pending Studies at Discharge: No Stand-Alone Forms: My [facility], Smoking Cessation Medications and DC Order Prescriptions: New amoxicillin-pot clavulanate 500-125 mg Tablet 1 tab PO BIDM 7 Days Qty: 14 RF: 0 Saccharomyces boulardii [Florastor] 250 mg Capsule 250 mg PO DAILY 7 Days Qty: 7 RF: 0 acetaminophen 325 mg Tablet 325 mg PO Q6H PRN (Reason: fever or pain) 5 Days Qty: 20 RF: 0 magnesium oxide 400 mg (241.3 mg magnesium) Tablet 400 mg PO BID 15 Days Qty: 30 RF: 0 Continued folic acid 1 mg Tablet 1 mg PO QAM RF: 0 aspirin [Aspir-81] 81 mg Tablet,Delayed Release (Dr/Ec) 81 mg PO QAM RF: 0 lisinopril 20 mg Tablet 20 mg PO QAM RF: 0 Discharge Orders: Discharge Order (Routine); Ordered 05/12/20 Ordered By: Sinan Freeman Admission Data Admit Date/Time: 05/10/20 08:40 Attending Provider: Sinan Freeman Admit Provider: Sinan Lopez Primary Care Provider: Luly Guajardo Other Providers: Sinan Lopez
[2020-05-12] MEDS: THIAMINE HCL 100 MG in SYRINGE 9 ML IV SCH (08:58)
[2020-05-12] MEDS: ASPIRIN 81 MG ECTAB PO SCH (08:59)
[2020-05-12] MEDS: MAGNESIUM OXIDE 400 MG TAB PO SCH (08:59)
[2020-05-12] MEDS: lisinopriL 20 MG TAB PO SCH (08:59)
[2020-05-12] MEDS: FOLIC ACID 1 MG TAB PO SCH (08:59)
[2020-05-12] MEDS ORDERED: SACCHAROMYCES BOULARDII 250 MG CAP PO SCH (09:00)
[2020-05-12] MEDS: GABAPENTIN 400 MG CAP PO SCH (09:00)
[2020-05-12] MEDS: HEPARIN SOD 5,000 UNIT/0.5 ML VIAL SQ SCH (09:00)
[2020-05-12] MEDS ORDERED: AMOXICILLIN/CLAVULANATE 500 MG TAB PO SCH (17:00)
[2020-05-13] MEDS ORDERED: GABAPENTIN 400 MG CAP PO SCH (10:00)
== END 2020-05-12 17:34 | disposition home or self-care (01) | DRG 605 ==
LOC: ED 16:56 → 3W 16:56 → SUATTDRO 19:02 → 3W 20:08

== ENCOUNTER 2020-06-09 17:13 | Inpatient (IN) ==
[2020-06-09 19:25] LABS: Appearance Urine Cloudy (Clear); Bacteria Urine Automated Negative (Negative); Blood Urine Negative (Negative); Color Urine Dark Yellow; Epithelial Cell Urine Auto >30 /lpf (0-5); Glucose Urine UA 2+ (Negative); Ketones Urine 1+ (Negative); Leukocyte Esterase Urine Negative (Negative); Nitrite Urine Positive (Negative); Protein Urine 1+ (Negative); Specific Gravity Urine 1.026 (1.000-1.030); Urobilinogen Urine Negative (Negative)
[2020-06-09 19:26] LABS: Basophils # (auto) 0.04 K/uL (0-0.2); Basophils % (auto) 0.5 %; Eosinophils # (auto) 0.17 K/uL (0-0.5); Eosinophils % (auto) 2.2 %; Hematocrit (blood only) 41.3 % (42-52); Immature Granulocytes # (auto) 0.02 K/uL (0.00-0.02); Immature Granulocytes % (auto) 0.3 %; Lymphocytes # (auto) 2.04 K/uL (1.2-3.4); Lymphocytes % (auto) 26.8 %; Mean Corpuscular Hemoglobin 31.7 pg (25-34); Mean Corpuscular Hgb Conc 33.9 g/dL (32-36); Mean Corpuscular Volume 93.7 fL (80-100); Mean Platelet Volume 10.5 fL (7.4-10.4); Monocytes # (auto) 1.03 K/uL (0.11-0.59); Monocytes % (auto) 13.6 %; Neutrophils % (auto) 56.6 %; Platelet Count 162 K/uL (130-400); RDW Coefficient of Variation 13.5 % (11.5-14.5); RDW Standard Deviation 46.6 fL (36.4-46.3); Red Blood Count 4.41 M/uL (4.7-6.1)
[2020-06-09 19:30] LABS: Bilirubin Urine Negative (Negative); Ictotest Urine Negative (Negative)
[2020-06-09 19:38] LABS: Cast Urine Automated >30 /lpf (0-5)
--- NOTE | 2020-06-09 19:42 | Emergency Department Note ---
Impression & Plan CEE (acute kidney injury), Abdominal pain, lower, Acute UTI (urinary tract infection), Enteritis ED Provider Note INFORMANT: Patient ED PROVIDER(S): Fabian Jay MD CHIEF COMPLAINT: Lower abdominal pain PLAN: Disposition: Admitted Condition: Good MEDICAL DECISION MAKING: Patient presented with acute abdominal pain. He had blood work obtained. The patient did have a normal CBC. Chemistry panel was concerning for CEE as his creatinine was doubled from previous. He was hydrated. The patient initially declined analgesia but then noted more pain and was given IV morphine. He had an enteritis noted on CT scan. His urinalysis did raise some concern for infection. The patient was given a dose of IV Rocephin. Given he has CEE and enteritis on CT scan I discussed further management in the hospital. The samy ent was in agreement. Consultation was made with Dr. Garcia of internal medicine. The patient was evaluated for further management. Triage Nursing notes reviewed and agree them. Vital Signs: reviewed and remarkable for no significant abnormalities Differential diagnosis: Appendicitis, testicular torsion, infections, diverticulitis, UTI, obstruction, mesenteric ischemia, aortic pathology, inflammatory bowel disease, renal colic, PUD, pancreatitis, biliary pathology, hernia, volvulus, constipation, as well as other pathologies. Diagnostics interpreted by me: Imaging studies: CT scan of the abdomen pelvis revealed findings consistent with enteritis. No perforation. Normal appendix. Consultation(s): [facility] HPI: The patient is a 54 year old male who presents to the Emergency Room with complaints of lower abdominal pain. This started yesterday and is worsening. The patient also notes the following associated symptoms, decreased appetite and pain worse with movement. The patient has taken no medication for relieving factors. Current pain is rated as 5/10. No prior history of the same. Still has his appendix. Pain is located in the lower abdomen but more so on the right side. Pt denies LOC, headache, fevers, chills, diaphoresis, visual changes, neck pain, chest pain, breathing difficulties, nausea, vomiting, back pain, melena, hematochezia, urinary symptoms, numbness, weakness, lymphadenopathy, rash, or other complaints. ROS: See above HPI for pertinent positives & negatives. A total of 10 systems reviewed and were otherwise negative. PAST MEDICAL HISTORY:See Below, UTI, BPH, hypertension PAST SURGICAL HISTORY:See Below, bilateral lens implants. FAMILY HISTORY:See Below SOCIAL HISTORY:See Below, history of alcohol use HOME MEDICATIONS:See Below ALLERGIES:See Below VITALS:See Below PHYSICAL EXAMINATION: GENERAL: Awake, alert, well-appearing, in no distress HENT: Normocephalic, atraumatic. Oropharynx unremarkable. EYES: Normal conjunctiva. Sclera non-icteric. NECK: Inspection normal. Non-tender. Supple. No nuchal rigidity. FROM. No masses. RESPIRATORY: Clear to auscultation. No wheezes. No rales. Normal respiratory effort. CARDIAC: Normal rate. Normal rhythm. No murmurs. No rubs. Extremities warm and well perfused. Pulses equal. No JVD. GI: Soft, non-distended. Right greater than left lower quadrant tenderness to palpation. No rebound but mild guarding. No masses. RECTAL: Deferred. MUSCULOSKELETAL: Atraumatic. Chest examination reveals no tenderness. The back is symmetrical on inspection without obvious abnormality. There is no CVA tenderness to palpation. No joint edema. LOWER EXTREMITIES: Calves are equal size bilaterally and non-tender. No edema. No discoloration. NEURO: Normal sensorium. No sensory or motor deficits noted. SKIN: No rash or jaundice noted. Fabian Jay MD Past Med/Surg History Medical History (Updated 06/09/20 @ 23:12 by Fabian Jay MD) Alcohol abuse Alcohol dependence History of chronic urinary tract infection Hypertension Renal calculi Retained ureteral stent Surgical History S/P lens implant Social History Smoking Status: Never smoker Second Hand Exposure: No; Do You Dip or Chew Tobacco: Yes; Tobacco Cessation Education Requested by Patient: No Hx Alcohol Use: Yes Alcohol type: beer Hx Substance Use: No Preferred Language: Divehi Communication Ability: Effective Company Driver Required: No Beliefs That Will Affect Care: None Current Living Situation: Alone current occupational status: disabled Other Information That Helps Us Care for You: No Feels Safe at Home: Yes Safety Concerns: Feels Safe At This Time Assistive Devices: Hearing Aid - Bilateral Assistive Devices Comment: legally blind, permanent lense implants Allergies Allergies Allergy/AdvReac Type Severity Reaction Status Date / Time No Known Allergies Allergy Verified 06/09/20 20:26 Home Meds Home Medications Medication Instructions Recorded Confirmed folic acid 1 mg PO QAM 05/02/18 06/09/20 lisinopril 20 mg PO QAM 09/13/18 06/09/20 aspirin [Aspir-81] 81 mg PO QAM 05/09/20 06/09/20 Results & Data (ED) Vital Signs Vital Signs - 24 hr 06/09/20 17:24 06/09/20 20:34 06/09/20 20:45 Temperature 36.8 C Temperature Source Oral Pulse Rate 94 H Pulse Rate [Finger] 85 76 Respiratory Rate 18 20 20 Respiratory Effort / Characteristics Non-Labored Spontaneous Non-Labored Spontaneous Non-Labored Spontaneous Respiratory Depth Normal Normal Normal Blood Pressure 120/75 Blood Pressure [Right Arm] 113/72 119/75 Blood Pressure Mean 90 Blood Pressure Mean [Right Arm] 85 89 Blood Pressure Position Sitting Pulse Oximetry 95 99 98 Oxygen Delivery Method Room Air Room Air Room Air Sepsis Recent Fever Within 48 Hours No Sepsis New/Unexplained Change in Mental Status N/A Sepsis Action Taken by Nursing No Action Required Laboratory Data Result diagrams: 06/09/20 19:05 06/09/20 19:05 Lab Results 06/09/20 06/09/20 06/09/20 Range/Units 19:05 19:05 19:10 WBC 7.60 (4.8-10.8) K/uL RBC 4.41 L (4.7-6.1) M/uL Hgb 14.0 (14.0-18.0) g/dL Hct 41.3 L (42-52) % MCV 93.7 (80-100) fL MCH 31.7 (25-34) pg MCHC 33.9 (32-36) g/dL RDW Std Deviation 46.6 H (36.4-46.3) fL RDW Coeff of Martir 13.5 (11.5-14.5) % Plt Count 162 (130-400) K/uL MPV 10.5 H (7.4-10.4) fL Immature Gran % (Auto) 0.3 % Neut % (Auto) 56.6 % Lymph % (Auto) 26.8 % Fleming % (Auto) 13.6 % Eos % (Auto) 2.2 % Baso % (Auto) 0.5 % Neut # (Auto) 4.30 (1.4-6.5) K/uL Lymph # (Auto) 2.04 (1.2-3.4) K/uL Fleming # (Auto) 1.03 H (0.11-0.59) K/uL Eos # (Auto) 0.17 (0-0.5) K/uL Baso # (Auto) 0.04 (0-0.2) K/uL Immature Gran # (Auto) 0.02 (0.00-0.02) K/uL Sodium 136 (136-145) mmol/L Potassium 3.7 (3.5-5.1) mmol/L Chloride 101 (98-107) mmol/L Carbon Dioxide 29 (21-32) mmol/L Anion Gap 6.0 (3-11) BUN 27 H (7-18) mg/dl Creatinine 2.12 H (0.6-1.4) mg/dl Est Cr Clr Drug Dosing 34.2 ml/min Est GFR ( Amer) 39.4 Est GFR (Non-Af Amer) 34.0 BUN/Creatinine Ratio 12.5 (10-20) Glucose 113 H (70-99) mg/dl Calcium 9.5 (8.5-10.1) mg/dl Total Bilirubin 0.4 (0.2-1) mg/dl AST 20 (15-37) U/L ALT 40 (12-78) U/L Alkaline Phosphatase 86 (45-117) U/L Total Protein 7.5 (6.4-8.2) gm/dl Albumin 3.5 (3.4-5.0) gm/dl Globulin 4.0 (2.5-4.0) gm/dl Albumin/Globulin Ratio 0.9 (0.9-2) Lipase 463 H (73-393) U/L Urine Color Dark Yellow Urine Appearance Cloudy A (Clear) Urine pH 5.0 (4.5-7.5) Ur Specific [place] 1.026 (1.000-1.030) Urine Protein 1+ H (Negative) Urine Glucose (UA) 2+ H (Negative) Urine Ketones 1+ H (Negative) Urine Blood Negative (Negative) Urine Nitrite Positive A (Negative) Urine Bilirubin Negative (Negative) Urine Urobilinogen Negative (Negative) Ur Leukocyte Esterase Negative (Negative) Urine WBC (Auto) 1-5 (0-5) /hpf Urine RBC (Auto) 5-10 H (0-4) /hpf U Hyaline Cast (Auto) >30 H (0-5) /lpf U Epithel Cells (Auto) >30 H (0-5) /lpf Urine Bacteria (Auto) Negative (Negative) Administered Medications Discontinued Medications Ceftriaxone Sodium (Rocephin) 1,000 mg in 50 mls @ 100 mls/hr IV NOW STA Stop: 06/09/20 20:56 Last Infusion: 06/09/20 21:12 Dose: 0 mls/hr Documented by: [id number] Admin: 06/09/20 20:43 Dose: 100 mls/hr Documented by: [id number] Sodium Chloride (Nss 1000ml) 1,000 mls @ 999 mls/hr IV .Q1H1M ONE Stop: 06/09/20 21:27 Last Infusion: 06/09/20 21:42 Dose: 0 mls/hr Documented by: [id number] Admin: 06/09/20 20:43 Dose: 999 mls/hr Documented by: [id number] Morphine Sulfate (Morphine Sulfate 4 Mg/Ml 1 Ml Carp\Vial) 4 mg IV NOW STA Stop: 06/09/20 21:02 Last Admin: 06/09/20 21:12 Dose: 4 mg Documented by: [id number] Discharge Plan Visit Data Chief Complaint: Abdominal Pain Stated Complaint: ABD PAIN ED Provider: Fabian Jay Discharge Problem: CEE (acute kidney injury), Abdominal pain, lower, Acute UTI (urinary tract infection), Enteritis Patient Disposition: Admitted As Inpatient Discharge Instructions Interventions: ED Discharge Assessment Last Done: 06/09/20 22:07
[2020-06-09 19:45] LABS: Albumin Level 3.5 gm/dl (3.4-5.0); BUN Creatinine Ratio 12.5 (10-20); Calcium 9.5 mg/dl (8.5-10.1); Creatinine Clr Calc Pharmacy 34.2 ml/min; Est GFR (African American) 39.4; Potassium 3.7 mmol/L (3.5-5.1)
[2020-06-09 19:47] LABS: Albumin Globulin Ratio 0.9 (0.9-2); Bilirubin,Total 0.4 mg/dl (0.2-1); Total Protein 7.5 gm/dl (6.4-8.2)
--- NOTE | 2020-06-09 20:21 | CT Scan Report ---
ABDOMEN AND PELVIS CT WITHOUT CONTRAST CT DOSE: 566.22 mGycm HISTORY: Acute lower abdominal pain lower abd pain, RLQ >LLQ TECHNIQUE: Multiaxial CT images of the abdomen and pelvis were performed without contrast. A dose lo wering technique was utilized adhering to the principles of ALARA. COMPARISON STUDY: CT abdomen pelvis 02/27/2020 FINDINGS: Clear lung bases. There is no pneumatosis or pneumoperitoneum. Coronary artery and mitral annular zen cifications. Limited evaluation of the solid abdominal organs without the use of IV contrast. Within the limitations of the exam, the spleen, pancreas, gallbladder and adrenal glands are unremarkable. H epatic steatosis. No hepatic mass lesion identified. Small volume of abdominopelvic ascites, new from comparison. Mild nonspecific bilateral perinephric stranding. Mildly atrophic right kidney with cortical scarring and parenchymal thinning. Resolution of the previously described hydroureteronephrosis. Surgical cli ps are noted adjacent to the inferior pole right kidney. Moderate urinary bladder wall thickening wit h partial distention. Prostamegaly. Small fat filled inguinal hernias. Mild calcified plaque of the a bdominal aorta. No aneurysm. No bowel obstruction. Mild colonic diverticulosis. Metallic density focus of the subcutaneous left an terior abdominal wall is unchanged. 4 mm metallic density focus is also noted within the cecum. Mariola l appendix. There are several fluid-filled nondilated loops of small bowel within the abdomen. Mild i nterloop edema is noted within the right midabdomen. Soft tissues are unremarkable. Chronic right-rubén ed L5 pars defect. No acute fracture. IMPRESSION: 1. No bowel obstruction or significant bowel wall thickening. 2. Multiple nondilated fluid-filled loops of small bowel are suggestive of a nonspecific enteritis. M ild interloop edema is likely reactive. 3. Small volume of abdominopelvic ascites. 4. Hepatic steatosis. 5. Prostamegaly with evidence of chronic bladder outlet obstruction. 6. Mildly atrophic right kidney with chronic scarring and parenchymal thinning of the inferior pole. ACT 112: Negative or not required by law. The above report was generated using voice recognition software. It may contain grammatical, syntax o r spelling errors. Electronically signed by: Hunter Landrum M.D. 06/09/2020 8:19 PM
[2020-06-09] MEDS ORDERED: cefTRIAXone SODIUM 1,000 MG/50 ML BAG IV STA (20:27)
[2020-06-09] MEDS ORDERED: SODIUM CHLORIDE 0.9% 1000ML 1,000 ML IV ONE (20:27)
[2020-06-09] MEDS ORDERED: MoRPHine SULFATE 4 MG/ML 1 ML CARP\\VIAL IV STA (21:01)
[2020-06-09] MEDS ORDERED: LORazepam 2 MG/4 ML VIAL IV PRN (22:34)
[2020-06-09] MEDS ORDERED: ONDANSETRON INJ 2 MG/ML 2 ML VIAL IV PRN (22:34)
[2020-06-09] MEDS ORDERED: LORazepam 3 MG/6 ML VIAL IV PRN (22:34)
[2020-06-09] MEDS ORDERED: ACETAMINOPHEN 325 MG TAB PO PRN (22:34)
[2020-06-09] MEDS ORDERED: GABAPENTIN 1200MG ALCOHOL WITHDRAWAL LOAD PO STA (22:34)
[2020-06-09] MEDS ORDERED: MoRPHine SULFATE 4 MG/ML 1 ML CARP\\VIAL IV PRN (22:34)
[2020-06-09] MEDS ORDERED: ATIVAN IV ALCOHOL WITHDRAWL IV PRN (22:34)
[2020-06-09] MEDS ORDERED: LORazepam 1 MG/2 ML VIAL IV PRN (22:34)
[2020-06-09] MEDS ORDERED: GABAPENTIN 600 MG TAB PO ONE (23:00)
[2020-06-09] MEDS ORDERED: MULTI-VITAMIN INFUSION 10 ML, THIAMINE HCL 100 MG, FOLIC ACID 1 MG in SODIUM CHLORIDE 0... IV ONE (23:30)
[2020-06-09] MEDS: PANTOprazole 40 MG in SYRINGE 0 ML IV SCH (23:39)
[2020-06-09] MEDS: THIAMINE HCL 100 MG in SYRINGE 9 ML IV SCH (23:39)
--- NOTE | 2020-06-10 00:22 | History and Physical Report ---
DATE OF ADMISSION: 06/09/2020 CHIEF COMPLAINT: Abdominal pain. 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 The patient stated pain started yesterday evening in the lower abdomen, about 7/10 in severity. No nausea, no vomiting, no diarrhea, no constipation, no blood in the stool or black stools. No burning micturition, no hematuria. Denies any fever, chills. Denies any cough, no chest pain, no shortness of breath, no headache, no blurred vision, no earache, no runny nose, no sore throat, no dysphagia. Appetite is okay. No swelling in the legs. No rash seen. Except for the pain, no other complaints. The patient has a history of alcoholism. The patient states he has currently cut down on the alcohol, last drank on Monday only 2 beers, but as per the recent admission, he was drinking 4-5 beers on most of the days, and had history of alcoholism in the past. ALLERGIES: No known drug allergies. PAST MEDICAL HISTORY: As mentioned above. PAST SURGICAL HISTORY: Colonoscopy. MEDICATIONS: Currently taking folic acid 1 mg p.o. daily, aspirin 81 mg p.o. daily, lisinopril 20 mg p.o. daily. FAMILY HISTORY: Significant for mother had breast cancer and heart disease; father had coronary artery disease, diabetes; brother has diabetes. SOCIAL HISTORY: Single. No smoking. Chews tobacco. Alcohol, in the recent past drinking 4-5 beers every day, but right now he says he is cutting back down and he has only drank two beers last Monday. No drug use. REVIEW OF SYSTEMS: As per HPI. Rest of the review of systems negative. PHYSICAL EXAMINATION: GENERAL: The patient is of moderate build, not in acute distress. VITAL SIGNS: Temperature 36.9, pulse 76, respiratory rate 18, blood pressure 106/73, oxygen 99% on room air. HEENT: No pallor, no icterus. Pupils equal, round, and reactive to light. Oral mucosa moist. NECK: No JVD, no neck masses. CARDIOVASCULAR: S1, S2 heard. Regular rate and rhythm, no murmur, no gallop. RESPIRATORY SYSTEM: Normal AP diameter. No accessory muscle use. No wheezing, no crackles. ABDOMEN: Soft, bowel sounds present. Mild diffuse tenderness, more in the left lower quadrant. No guarding, no rigidity, no distention. CENTRAL NERVOUS SYSTEM: Cranial nerves II-XII grossly intact. Nonfocal. EXTREMITIES: No edema, no erythema. LABORATORY DATA: WBC 7.6, hemoglobin 14, hematocrit 41.3, platelets 162. Sodium 136, potassium 3.7, chloride 101, bicarbonate 29, BUN 27, creatinine 2.12, glucose 113, calcium 9.5, total bilirubin 0.4, AST 20, ALT 40, alkaline phosphatase 86, lipase 463. Urinalysis, positive for nitrite. IMAGING DATA: CT abdomen and pelvis without contrast shows no bowel obstruction or significant bowel wall thickening, multiple nondilated fluid filled loops of small bowel are suggestive of nonspecific enteritis. Mild interloop edema, is likely reactive. Small volume of abdominopelvic ascites, hepatic steatosis, prostatomegaly with evidence of chronic bladder outlet obstruction. Mild atrophy of right kidney, with chronic scaring and parenchymal thinning of the inferior pole. ASSESSMENT AND PLAN: This is a 54-year-old male who presents with abdominal pain. 1. Abdominal pain: CAT scan is showing nonspecific enteritis. The patient recently got treated for left lower extremity wound with antibiotics. We will check stool for C. diff. UA is nitrite positive, but bacteria negative. ER gave Rocephin, which he will continue. Follow the urine cultures. Lipase is slightly elevated, could be nonspecific. We will repeat the lipase in the a.m. If lipase is constantly elevated or goes up, may need to do a CT scan with IV contrast to rule out pancreatitis because the patient has history of alcoholism. We will keep him n.p.o., IV fluids of D5 normal saline at 150 mL per hour. Repeat labs in the a.m. IV morphine p.r.n., IV Protonix b.i.d. and closely monitor in the medical floor. 2. Acute kidney injury, currently with creatinine of 2.1, baseline creatinine around 1. Getting fluids. Follow the repeat labs in the a.m. 3. Possible urinary tract infection: Follow the cultures. Getting antibiotics as above. 4. Alcoholism: The patient's recent admission last month mentioned he drinks 4-6 beers most of the days, but right now he is saying he is cutting back and last time he drank 2 beers last Monday, but we will keep him on gabapentin protocol and IV Ativan p.r.n., thiamine, and folic acid. Monitor for withdrawals. 5. History of transient ischemic attack, on aspirin. 6. History of hypertension, on lisinopril. Will monitor the blood pressure. 7. Deep venous thrombosis prophylaxis, sequential compression devices for now. 8. Disposition: Closely monitor in the medical floor. Level 1 full code. Expect to discharge home and follow with family doctor. MELISSA
[2020-06-10] MEDS: D5W AND NSS 1,000 ML IV SCH ×4 (02:13→22:14)
[2020-06-10] MEDS: GABAPENTIN 600 MG TAB PO SCH ×3 (05:32→20:01)
[2020-06-10 06:35] LABS: Basophils # (auto) 0.03 K/uL (0-0.2); Basophils % (auto) 0.5 %; Eosinophils # (auto) 0.19 K/uL (0-0.5); Eosinophils % (auto) 3.2 %; Hematocrit (blood only) 37.9 % (42-52); Hemoglobin 12.9 g/dL (14.0-18.0); Immature Granulocytes # (auto) 0.02 K/uL (0.00-0.02); Immature Granulocytes % (auto) 0.3 %; Lymphocytes # (auto) 1.84 K/uL (1.2-3.4); Lymphocytes % (auto) 31.1 %; Mean Platelet Volume 10.4 fL (7.4-10.4); Monocytes # (auto) 0.94 K/uL (0.11-0.59); Monocytes % (auto) 15.9 %; Neutrophils # (auto) 2.89 K/uL (1.4-6.5); Platelet Count 132 K/uL (130-400); RDW Coefficient of Variation 13.4 % (11.5-14.5); RDW Standard Deviation 46.2 fL (36.4-46.3); Red Blood Count 4.03 M/uL (4.7-6.1); White Blood Count 5.91 K/uL (4.8-10.8)
[2020-06-10 07:05] LABS: BUN Creatinine Ratio 14.4 (10-20); Calcium 8.3 mg/dl (8.5-10.1); Creatinine Clr Calc Pharmacy 55.1 ml/min; Est GFR (African American) 62.9; Est GFR (Non-African American) 54.3; Magnesium 1.4 mg/dl (1.8-2.4)
[2020-06-10] MEDS: ASPIRIN 81 MG ECTAB PO SCH (07:49)
[2020-06-10] MEDS: lisinopril 20 MG TAB PO SCH (07:50)
[2020-06-10] MEDS: THIAMINE HCL 100 MG in SYRINGE 9 ML IV SCH (07:50)
[2020-06-10] MEDS: FOLIC ACID 1 MG TAB PO SCH (07:50)
[2020-06-10] MEDS: PANTOprazole 40 MG in SYRINGE 0 ML IV SCH ×2 (07:50→20:01)
[2020-06-10] MEDS: MAGNESIUM SULFATE / D5W 1 GM/100 ML BAG IV SCH ×2 (08:27→10:26)
--- NOTE | 2020-06-10 19:54 | Hospitalist Progress Note ---
Date of Service June 10, 2020 Assessment & Plan (1) Abdominal pain, lower: Patient is a 54-year-old male who presents with abdominal pain Abdominal pain Likely secondary to enteritis, hepatic steatosis, Alcohol use --CT ABD:No bowel obstruction or significant bowel wall thickening. Multiple nondilated fluid-filled loops of small bowel are suggestive of a nonspecific enteritis. Mild interloop edema is likely reactive. Small volume of abdominopelvic ascites. Hepatic steatosis. Prostamegaly with evidence of chronic bladder outlet obstruction. Mildly atrophic right kidney with chronic scarring and parenchymal thinning of the inferior pole. -Mildly elevated lipase which normalized with IV fluids Continue IV fluids Advance diet as tolerated No signs of sepsis Stool studies pending Consider GI eval if needed Transition to p.o. PPI as able Abnormal UA Urine culture negative for UTI Discontinued Rocephin Alcohol use disorder Alcohol level 323 On gabapentin protocol Continue thiamine, folic acid Monitor for withdrawal Counseled to quit drinking Acute kidney injury Renal function improving with IV fluids Avoid nephrotoxic agents as able Bladder scan as needed Monitor renal function Hypomagnesemia Replete electrolytes as needed H/O TIA on aspirin HTN Blood pressure stable Consider holding lisinopril if renal function worsens Monitor DVT Px: SCDs CODE STATUS Full code Disposition: Expect to discharge home when medically stable Admission and Anticipated Discharge Date Admission Date: June 09, 2020 Subjective Patient is seen and examined at bedside this morning Abdominal pain better today Denies having diarrhea this morning No significant alcohol withdrawal symptoms Denies chest pain, shortness of breath, dizziness, nausea Offers no other complaints Review of Systems Review of Systems: All systems reviewed & are unremarkable except as noted in HPI & below Physical Exam Physical Exam: Physical Exam: Vitals signs as noted above General Appearance:Moderately built and nourished, no apparent distress Head: normocephalic, Atraumatic Eyes: normal inspection, EOMI, PERRL Neck: supple, Trachea midline Respiratory/Chest: Normal breath sounds, CTA Cardiovascular: S1, S2, No murmur Abdomen/GI:Soft, + tender, Bowel sounds present Extremities/Musculoskelatal:normal inspection, no edema Neurologic/Psych:AAOX3, grossly no focal neurological deficits Skin: normal color, warm Results & Data Results & Data ([facility]) Vital Signs (Past 12 Hours) Vital Signs Temp Pulse Resp BP Pulse Ox 06/10/20 15:26 36.8 C 76 17 114/73 98 Laboratory Results Short CBC 06/10/20 Range/Units 05:33 WBC 5.91 (4.8-10.8) K/uL Hgb 12.9 L (14.0-18.0) g/dL Hct 37.9 L (42-52) % Plt Count 132 (130-400) K/uL BMP 06/09/20 06/10/20 19:05 05:33 Sodium 136 139 Potassium 3.7 4.0 Chloride 101 108 H Carbon Dioxide 29 28 BUN 27 H 21 H Creatinine 2.12 H 1.44 H D Glucose 113 H 104 H Calcium 9.5 8.3 L Liver Function 06/09/20 Range/Units 19:05 Total Bilirubin 0.4 (0.2-1) mg/dl AST 20 (15-37) U/L ALT 40 (12-78) U/L Alkaline Phosphatase 86 (45-117) U/L Albumin 3.5 (3.4-5.0) gm/dl
[2020-06-10] MEDS ORDERED: cefTRIAXone SODIUM 1,000 MG in DEXTROSE 5% 50 ML IV SCH (21:00)
[2020-06-11] MEDS: D5W AND NSS 1,000 ML IV SCH (04:04)
[2020-06-11] MEDS: GABAPENTIN 600 MG TAB PO SCH ×3 (04:04→22:18)
[2020-06-11] MEDS: lisinopril 20 MG TAB PO SCH (08:04)
[2020-06-11] MEDS: ASPIRIN 81 MG ECTAB PO SCH (08:04)
[2020-06-11] MEDS: FOLIC ACID 1 MG TAB PO SCH (08:04)
[2020-06-11] MEDS: PANTOprazole 40 MG in SYRINGE 0 ML IV SCH (08:05)
[2020-06-11] MEDS: THIAMINE HCL 100 MG in SYRINGE 9 ML IV SCH (08:05)
[2020-06-11 08:29] LABS: Hematocrit (blood only) 34.3 % (42-52); Hemoglobin 11.4 g/dL (14.0-18.0); Mean Corpuscular Hemoglobin 31.6 pg (25-34); Mean Corpuscular Hgb Conc 33.2 g/dL (32-36); Mean Platelet Volume 10.5 fL (7.4-10.4); Platelet Count 152 K/uL (130-400); RDW Coefficient of Variation 13.2 % (11.5-14.5); Red Blood Count 3.61 M/uL (4.7-6.1); White Blood Count 5.38 K/uL (4.8-10.8)
[2020-06-11 09:05] LABS: BUN Creatinine Ratio 6.5 (10-20); Calcium 8.6 mg/dl (8.5-10.1); Creatinine Clr Calc Pharmacy 85.3 ml/min; Est GFR (African American) 106.7; Est GFR (Non-African American) 92.1; Magnesium 1.6 mg/dl (1.8-2.4)
[2020-06-11] MEDS: MAGNESIUM SULFATE / D5W 1 GM/100 ML BAG IV SCH ×2 (12:01→14:34)
--- NOTE | 2020-06-11 15:21 | XRay Report ---
KUB HISTORY: Lower abdominal pain. COMPARISON: Abdomen and pelvis CT 06/09/2020. FINDINGS: The bowel gas pattern is unremarkable. There are no dilated loops of small bowel to suggest an obstruction. No renal calculi. No ureteral calculi. No pneumoperitoneum or pneumatosis. There ar e few surgical clips within the right midabdomen. Small phlebolith within the right lower quadrant. IMPRESSION: Unremarkable KUB. No evidence for bowel obstruction. ACT 112: Negative or not required by law. Electronically signed by: Paul Ahuja M.D. 06/11/2020 3:20 PM
--- NOTE | 2020-06-11 18:30 | Hospitalist Progress Note ---
Date of Service June 11, 2020 Assessment & Plan (1) Abdominal pain, lower: Patient is a 54-year-old male who presents with abdominal pain Abdominal pain Likely secondary to enteritis, hepatic steatosis, Alcohol use --CT ABD:No bowel obstruction or significant bowel wall thickening. Multiple nondilated fluid-filled loops of small bowel are suggestive of a nonspecific enteritis. Mild interloop edema is likely reactive. Small volume of abdominopelvic ascites. Hepatic steatosis. Prostamegaly with evidence of chronic bladder outlet obstruction. Mildly atrophic right kidney with chronic scarring and parenchymal thinning of the inferior pole. -Mildly elevated lipase which normalized with IV fluids -KUB on 06/11:Unremarkable KUB. No evidence for bowel obstruction. Received IV fluids Advance to regular diet today No signs of sepsis Obtain Stool studies if recurrence of diarrhea Continue PPI Consider GI eval if needed Abnormal UA Urine culture negative for UTI Discontinued Rocephin Alcohol use disorder Alcohol level 323 On gabapentin protocol Continue thiamine, folic acid Monitor for withdrawal Counseled to quit drinking Acute kidney injury Cr back to baseline Received IV fluids Avoid nephrotoxic agents as able Bladder scan as needed Monitor renal function Hypomagnesemia Replete electrolytes as needed H/O TIA on aspirin HTN Continue lisinopril Monitor DVT Px: SCDs CODE STATUS Full code Disposition: Expect to discharge home when medically stable Admission and Anticipated Discharge Date Admission Date: June 09, 2020 Subjective Patient is seen and examined at bedside this morning Abdominal pain better Denies nausea, vomiting, diarrhea, chest pain, dyspnea, dizziness Request to advance diet KUB showed no signs of obstruction today Offers no other complaints Renal function normalized Hypoglycemia on labs Review of Systems Review of Systems: All systems reviewed & are unremarkable except as noted in HPI & below Physical Exam Physical Exam: Physical Exam: Vitals signs as noted above General Appearance:Moderately built and nourished, no apparent distress Head: normocephalic, Atraumatic Eyes: normal inspection, EOMI, PERRL Neck: supple, Trachea midline Respiratory/Chest: Normal breath sounds, CTA Cardiovascular: S1, S2, No murmur Abdomen/GI:Soft, + tender, Bowel sounds present Extremities/Musculoskelatal:normal inspection, no edema Neurologic/Psych:AAOX3, grossly no focal neurological deficits Skin: normal color, warm Results & Data Results & Data ([facility]) Vital Signs (Past 12 Hours) Vital Signs Temp Pulse Resp BP Pulse Ox 06/11/20 15:13 36.6 C 62 18 146/83 H 97 06/11/20 08:45 36.5 C 65 18 126/70 100 Laboratory Results Short CBC 06/11/20 Range/Units 07:53 WBC 5.38 (4.8-10.8) K/uL Hgb 11.4 L (14.0-18.0) g/dL Hct 34.3 L (42-52) % Plt Count 152 (130-400) K/uL BMP 06/11/20 07:53 Sodium 139 Potassium 4.0 Chloride 109 H Carbon Dioxide 28 BUN 6 L D Creatinine 0.93 D Glucose 90 Calcium 8.6
[2020-06-11] MEDS: PANTOprazole 40 MG TAB PO SCH (22:19)
[2020-06-12 06:59] LABS: BUN Creatinine Ratio 4.4 (10-20); Calcium 8.4 mg/dl (8.5-10.1); Creatinine Clr Calc Pharmacy 69.6 ml/min; Est GFR (African American) 83.4; Magnesium 1.7 mg/dl (1.8-2.4); Potassium 3.5 mmol/L (3.5-5.1)
[2020-06-12] MEDS: FOLIC ACID 1 MG TAB PO SCH (09:13)
[2020-06-12] MEDS: ASPIRIN 81 MG ECTAB PO SCH (09:13)
[2020-06-12] MEDS: PANTOprazole 40 MG TAB PO SCH ×2 (09:14→20:02)
[2020-06-12] MEDS: lisinopril 20 MG TAB PO SCH (09:14)
[2020-06-12] MEDS: THIAMINE HCL 100 MG in SYRINGE 9 ML IV SCH (09:14)
[2020-06-12] MEDS: GABAPENTIN 600 MG TAB PO SCH (09:15)
[2020-06-12] MEDS: MAGNESIUM SULFATE / D5W 1 GM/100 ML BAG IV SCH ×2 (11:06→17:29)
[2020-06-12] MEDS: AMOXICILLIN/CLAVULANATE 500 MG TAB PO SCH ×2 (15:27→20:02)
--- NOTE | 2020-06-12 16:56 | Hospitalist Progress Note ---
Date of Service June 12, 2020 Assessment & Plan (1) Abdominal pain, lower: Patient is a 54-year-old male who presents with abdominal pain Abdominal pain Likely secondary to enteritis, hepatic steatosis, Alcohol use --CT ABD:No bowel obstruction or significant bowel wall thickening. Multiple nondilated fluid-filled loops of small bowel are suggestive of a nonspecific enteritis. Mild interloop edema is likely reactive. Small volume of abdominopelvic ascites. Hepatic steatosis. Prostamegaly with evidence of chronic bladder outlet obstruction. Mildly atrophic right kidney with chronic scarring and parenchymal thinning of the inferior pole. -Mildly elevated lipase which normalized with IV fluids -KUB on 06/11:Unremarkable KUB. No evidence for bowel obstruction. Received IV fluids No signs of sepsis Obtain Stool studies if recurrence of diarrhea Continue PPI GI symptoms resolved Tolerating regular diet Acute Bronchitis Obtain chest X ray Empirically started on Augmentin Abnormal UA Urine culture negative for UTI Discontinued Rocephin Alcohol use disorder Alcohol level 323 On gabapentin protocol Continue thiamine, folic acid Monitor for withdrawal Counseled to quit drinking No signs of alcohol withdrawal Acute kidney injury Cr back to baseline Received IV fluids Avoid nephrotoxic agents as able Bladder scan as needed Monitor renal function Hypomagnesemia Replete electrolytes as needed Monitor H/O TIA on aspirin HTN Continue lisinopril Monitor DVT Px: SCDs CODE STATUS Full code Disposition: Expect to discharge home when medically stable Admission and Anticipated Discharge Date Admission Date: June 09, 2020 Subjective Patient is seen and examined at bedside this morning Reports cough with minimal yellowish expectoration Abdominal pain, diarrhea resolved Denies chest pain, dyspnea, dizziness Ambulating in hallways Tolerated regular diet Review of Systems Review of Systems: All systems reviewed & are unremarkable except as noted in HPI & below Physical Exam Physical Exam: Physical Exam: Vitals signs as noted above General Appearance:Moderately built and nourished, no apparent distress Head: normocephalic, Atraumatic Eyes: normal inspection, EOMI Neck: supple, Trachea midline Respiratory/Chest: Normal breath sounds, CTA Cardiovascular: S1, S2, No murmur Abdomen/GI:Soft, Non tender, Bowel sounds present Extremities/Musculoskelatal:normal inspection, no edema Neurologic/Psych:AAOX3, grossly no focal neurological deficits Skin: normal color, warm Results & Data Results & Data ([facility]) Vital Signs (Past 12 Hours) Vital Signs Temp Pulse Resp BP Pulse Ox 06/12/20 15:12 36.6 C 67 16 135/80 100 06/12/20 08:04 36.8 C 78 18 128/75 100 Laboratory Results BMP 06/12/20 06:13 Sodium 138 Potassium 3.5 Chloride 106 Carbon Dioxide 29 BUN 5 L Creatinine 1.14 Glucose 122 H Calcium 8.4 L
--- NOTE | 2020-06-12 17:40 | XRay Report ---
XR chest 2V PA/lateral HISTORY: Cough COMPARISON: Chest 03/09/2020. FINDINGS: Cardiac silhouette remains borderline enlarged. There are old, healed left-sided rib fractu res. No new focal lung consolidations to suggest pneumonia. No evidence for pulmonary edema. There ar e old, healed right lower rib fractures. No pleural effusions. No pneumothorax. IMPRESSION: Stable chronic changes as described above. No acute process within the chest. ACT 112: Negative or not required by law. Electronically signed by: Paul Ahuja M.D. 06/12/2020 5:39 PM
[2020-06-12] MEDS: MAGNESIUM CHLORIDE 64MG DELAYED REL TAB PO SCH (20:02)
[2020-06-13 08:07] LABS: BUN Creatinine Ratio 6.1 (10-20); Calcium 9.1 mg/dl (8.5-10.1); Creatinine Clr Calc Pharmacy 72.1 ml/min; Est GFR (African American) 87.1; Est GFR (Non-African American) 75.2; Magnesium 1.5 mg/dl (1.8-2.4)
[2020-06-13] MEDS: PANTOprazole 40 MG TAB PO SCH (08:50)
[2020-06-13] MEDS: AMOXICILLIN/CLAVULANATE 500 MG TAB PO SCH (08:50)
[2020-06-13] MEDS: ASPIRIN 81 MG ECTAB PO SCH (08:50)
[2020-06-13] MEDS: lisinopril 20 MG TAB PO SCH (08:51)
[2020-06-13] MEDS: MAGNESIUM CHLORIDE 64MG DELAYED REL TAB PO SCH (08:51)
[2020-06-13] MEDS: FOLIC ACID 1 MG TAB PO SCH (08:51)
[2020-06-13] MEDS: THIAMINE HCL 100 MG in SYRINGE 9 ML IV SCH (08:51)
[2020-06-13] MEDS ORDERED: GABAPENTIN 600 MG TAB PO SCH (10:00)
[2020-06-13] MEDS ORDERED: MAGNESIUM OXIDE 400 MG TAB PO SCH (10:15)
[2020-06-13] MEDS ORDERED: MAGNESIUM SULFATE / D5W 1 GM/100 ML BAG IV ONE (10:30)
--- NOTE | 2020-06-13 13:16 | Hospitalist Progress Note ---
Date of Service June 13, 2020 Assessment & Plan (1) Abdominal pain, lower: Patient is a 54-year-old male who presents with abdominal pain Abdominal pain Likely secondary to enteritis, hepatic steatosis, Alcohol use --CT ABD:No bowel obstruction or significant bowel wall thickening. Multiple nondilated fluid-filled loops of small bowel are suggestive of a nonspecific enteritis. Mild interloop edema is likely reactive. Small volume of abdominopelvic ascites. Hepatic steatosis. Prostamegaly with evidence of chronic bladder outlet obstruction. Mildly atrophic right kidney with chronic scarring and parenchymal thinning of the inferior pole. -Mildly elevated lipase which normalized with IV fluids -KUB on 06/11:Unremarkable KUB. No evidence for bowel obstruction. Received IV fluids No signs of sepsis Obtain Stool studies if recurrence of diarrhea Clinically improved Tolerated regular diet Acute Bronchitis chest X ray: Stable chronic changes as described above. No acute process within the chest. Continue Augmentin to complete the course Abnormal UA Urine culture negative for UTI Discontinued Rocephin Alcohol use disorder Alcohol level 323 On gabapentin protocol Continue thiamine, folic acid Monitor for withdrawal Counseled to quit drinking No signs of alcohol withdrawal Acute kidney injury Cr back to baseline Received IV fluids Avoid nephrotoxic agents as able Bladder scan as needed Monitor renal function Hypomagnesemia--Chronic Likely secondary to alcohol abuse Replete electrolytes as needed Monitor H/O TIA on aspirin HTN Continue lisinopril Monitor DVT Px: SCDs CODE STATUS Full code Disposition: Plan to discharge home today Admission and Anticipated Discharge Date Admission Date: June 09, 2020 Subjective Patient is seen and examined at bedside States doing much better today No new complaints Cough much improved Denies chest pain, dyspnea, dizziness, nausea, abd pain Review of Systems Review of Systems: All systems reviewed & are unremarkable except as noted in HPI & below Physical Exam Physical Exam: Physical Exam: Vitals signs as noted above General Appearance:Moderately built and nourished, no apparent distress Head: normocephalic, Atraumatic Eyes: normal inspection, EOMI Neck: supple, Trachea midline Respiratory/Chest: Normal breath sounds, CTA Cardiovascular: S1, S2, No murmur Abdomen/GI:Soft, Non tender, Bowel sounds present Extremities/Musculoskelatal:normal inspection, no edema Neurologic/Psych:AAOX3, grossly no focal neurological deficits Skin: normal color, warm Results & Data Results & Data ([facility]) Vital Signs (Past 12 Hours) Vital Signs Temp Pulse Resp BP Pulse Ox 06/13/20 07:19 36.6 C 68 18 153/93 H 100 Laboratory Results BMP 06/13/20 07:33 Sodium 136 Potassium 4.0 Chloride 104 Carbon Dioxide 30 BUN 7 Creatinine 1.10 Glucose 89 Calcium 9.1
--- NOTE | 2020-06-13 13:22 | Discharge Summary ---
Date of Service June 13, 2020 Admission HPI Per Admitting Provider CHIEF COMPLAINT: Abdominal pain. 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 The patient stated pain started yesterday evening in the lower abdomen, about 7/10 in severity. No nausea, no vomiting, no diarrhea, no constipation, no blood in the stool or black stools. No burning micturition, no hematuria. Denies any fever, chills. Denies any cough, no chest pain, no shortness of breath, no headache, no blurred vision, no earache, no runny nose, no sore throat, no dysphagia. Appetite is okay. No swelling in the legs. No rash seen. Except for the pain, no other complaints. The patient has a history of alcoholism. The patient states he has currently cut down on the alcohol, last drank on Monday only 2 beers, but as per the recent admission, he was drinking 4-5 beers on most of the days, and had history of alcoholism in the past. Admission Exam Per Admitting Provider PHYSICAL EXAMINATION: GENERAL: The patient is of moderate build, not in acute distress. VITAL SIGNS: Temperature 36.9, pulse 76, respiratory rate 18, blood pressure 106/73, oxygen 99% on room air. HEENT: No pallor, no icterus. Pupils equal, round, and reactive to light. Oral mucosa moist. NECK: No JVD, no neck masses. CARDIOVASCULAR: S1, S2 heard. Regular rate and rhythm, no murmur, no gallop. RESPIRATORY SYSTEM: Normal AP diameter. No accessory muscle use. No wheezing, no crackles. ABDOMEN: Soft, bowel sounds present. Mild diffuse tenderness, more in the left lower quadrant. No guarding, no rigidity, no distention. CENTRAL NERVOUS SYSTEM: Cranial nerves II-XII grossly intact. Nonfocal. EXTREMITIES: No edema, no erythema. Principal Diagnosis Enteritis Hepatic steatosis Alcohol use disorder Acute bronchitis Chronic hypomagnesemia Acute kidney injury Discharge Data Allergies Allergy/AdvReac Type Severity Reaction Status Date / Time No Known Allergies Allergy Verified 06/09/20 20:26 Consultations 06/09/20 20:29 ED Decision to Admit Stat 06/09/20 22:34 Consult Case Management - Discharge Planning Routine Procedures Performed CT ABD:No bowel obstruction or significant bowel wall thickening. Multiple nondilated fluid-filled loops of small bowel are suggestive of a nonspecific enteritis. Mild interloop edema is likely reactive. Small volume of abdominopelvic ascites. Hepatic steatosis. Prostamegaly with evidence of chronic bladder outlet obstruction. Mildly atrophic right kidney with chronic scarring and parenchymal thinning of the inferior pole. Ordered Studies 06/09/20 19:30 CT abd pelvis wo con Stat Hospital Course (1) Abdominal pain, lower: Patient is a 54-year-old male who presents with abdominal pain Abdominal pain Likely secondary to enteritis, hepatic steatosis, Alcohol use --CT ABD:No bowel obstruction or significant bowel wall thickening. Multiple nondilated fluid-filled loops of small bowel are suggestive of a nonspecific enteritis. Mild interloop edema is likely reactive. Small volume of abdominopelvic ascites. Hepatic steatosis. Prostamegaly with evidence of chronic bladder outlet obstruction. Mildly atrophic right kidney with chronic scarring and parenchymal thinning of the inferior pole. -Mildly elevated lipase which normalized with IV fluids -KUB on 06/11:Unremarkable KUB. No evidence for bowel obstruction. Received IV fluids No signs of sepsis Obtain Stool studies if recurrence of diarrhea Clinically improved Tolerated regular diet Acute Bronchitis chest X ray: Stable chronic changes as described above. No acute process within the chest. Continue Augmentin to complete the course Abnormal UA Urine culture negative for UTI Discontinued Rocephin Alcohol use disorder Alcohol level 323 On gabapentin protocol Continue thiamine, folic acid Monitor for withdrawal Counseled to quit drinking No signs of alcohol withdrawal Acute kidney injury Cr back to baseline Received IV fluids Avoid nephrotoxic agents as able Bladder scan as needed Monitor renal function Hypomagnesemia--Chronic Likely secondary to alcohol abuse Replete electrolytes as needed Monitor H/O TIA on aspirin HTN Continue lisinopril Monitor DVT Px: SCDs CODE STATUS Full code Disposition: Plan to discharge home today Total Time Total Time Spent Total Time Spent (In Minutes): 41 minutes Total Time Includes: Examination of the Patient, Discharge Planning, Medication Reconciliation, Communication With Other Providers and Other Discharge Plan Discharge Items Patient Disposition: Home - Self-Care Reason For Visit: ABDOMINAL PAIN Discharge Diagnosis: Enteritis Hepatic steatosis Alcohol use disorder Acute bronchitis Chronic hypomagnesemia Acute kidney injury Activity: Resume your previous activity Exercise/Sports: Gradually increase as tolerated Non-emergency contact: Primary Care Provider Call non-emergency contact if: you have any medication questions, your symptoms worsen, your pain is not controlled, your pain is worsening, your pain is unusual for you, your pain is concerning for you and you have a fever Follow-up/Referrals: Luly Guajardo PA-C [Primary Care Provider] - (Date & Time 06/15/2020 11:00 AM Provider [facility] ) Diet: Heart Healthy Addtl Attending Provider Instructions: Follow-up with your primary care physician as scheduled. Complete the antibiotic course for acute bronchitis as prescribed Seek immediate medical attention if your symptoms reoccur or worsen Pending Studies at Discharge: No Stand-Alone Forms: My [employer], Smoking Cessation Medications and DC Order Prescriptions: New amoxicillin-pot clavulanate 500-125 mg Tablet 1 tab PO BIDM Qty: 8 RF: 0 magnesium chloride [Mag 64] 64 mg Tablet,Delayed Release (Dr/Ec) 64 mg PO BID Qty: 60 RF: 0 Continued folic acid 1 mg Tablet 1 mg PO QAM RF: 0 aspirin [Aspir-81] 81 mg Tablet,Delayed Release (Dr/Ec) 81 mg PO QAM RF: 0 lisinopril 20 mg Tablet 20 mg PO QAM RF: 0 Discharge Orders: Discharge Order (Routine); Ordered 06/13/20 Ordered By: Osorio Yates/Other Patient Handouts: Discharge Instructions for ... Admission Data Admit Date/Time: 06/09/20 21:47 Attending Provider: Osorio Patino Admit Provider: Mikael Garcia Primary Care Provider: Luly Guajardo Other Providers: Mikael Garcia Other Interventions: Discharge Summary Assessment (RN) Last Done: 06/13/20 13:27
[2020-06-13] MEDS ORDERED: MAGNESIUM CHLORIDE 64MG DELAYED REL TAB PO SCH (21:00)
--- NOTE | 2020-06-26 12:55 | Coding Query ---
CODING QUERY To promote full compliance with coding requirements relating to patient care, provider participation is requested in all cases of table cover folder uncertainty. Please assist us with the question(s) below: Coding Question(s): There is documentation of Alcohol Use Disorder, history of Alcoholism,Alcoholism, history of Alcohol Abuse, and Alcohol Abuse documented. Please specify below, in your clinical opinion, regarding the Alcohol use disorder. ( ) Mild Alcohol Use Disorder or Alcohol Abuse ( X ) Moderate or Severe Alcohol Use Disorder or Alcohol Dependence, Alcoholism ( ) Other: Please Specify Physician's Response(s): Thank you Thelma Dunn Principal Diagnosis: "that condition established after study, to be chiefly responsible for occasioning the admission of the patient to the hospital for care." Co-Existing Principal Diagnosis: "when two or more diagnoses equally meet the criteria for principal diagnosis as determined by the circumstances of admission, diagnostic work up, and/or therapy provided, and the Alphabetic Index, Tabular List, or another coding guideline does not provide sequencing direction, any one of the diagnoses may be sequenced first." "When the physician has documented what appears to be a current diagnosis in the body of the record, but has not included the diagnosis in the final diagnostic statement, the physician should be asked whether the diagnosis should be added." (Source Coding [facility] 2 QTR90. p3-4) MELISSA
== END 2020-06-13 16:24 | disposition home or self-care (01) | DRG 897 ==
LOC: ED 17:13 → SUATTDRO 21:47 → 3W 21:47

== ENCOUNTER 2024-11-20 15:03 | Inpatient (IN) ==
--- NOTE | 2024-11-20 15:30 | Emergency Department Note ---
Impression & Plan Hypotension, Alcohol abuse, CEE (acute kidney injury), Acute hyperkalemia, Acute hyponatremia, Acute hyperglycemia, Liver failure, Elevated lactic acid level, Vomiting ED Provider Note NAME: MOY CRABTREE AGE: 59 SEX: M : 1965 ARRIVES VIA: Ambulance INFORMANT: [Patient][ems] ED PROVIDER(S): [Josh Tovar MD] CHIEF COMPLAINT: Weakness HISTORY OF PRESENT ILLNESS: The patient is a 59-year-old male who is an alcoholic. He typically drinks at least 12 beers a day. Over the last few days, he has been nauseated and he has had some vomiting. His number of alcoholic beverages daily has been cut about in half. He has been complaining of some right sided abdominal pain. He has been weak and his family was concerned about how he was doing, they were concerned that he was not safe outpatient. The patient denies chest pain or fever, there has been no cough. He does complain of some right sided abdominal pain. He denies diarrhea. He has not fallen or suffered trauma. PMHx/PSHx/Social Hx: See Below PHYSICAL EXAM: GENERAL: Patient is in no acute distress. HEENT: No acute trauma, normocephalic atraumatic, mucous membranes dry, no nasal congestion. Patient does have some horizontal nystagmus noted. NECK: No stridor, no adenopathy, no meningismus, trachea is midline. LUNGS: Clear to auscultation bilaterally, no wheeze, no rhonchi, breath sounds equal. Breath sounds diminished bilaterally. HEART: Without murmurs gallops or rubs, regular rate and rhythm. ABDOMEN: Soft, tender along the area of the right upper quadrant, no peritonitis. EXTREMITIES: No cyanosis, full range of motion of all the joints without pain or difficulty. There are some chronic lower extremity skin changes with some skin erythema. There is mild bilateral pedal edema. NEUROLOGIC: Awake and alert, poor historian, no acute motor or sensory deficits, no focal weakness. SKIN: No diaphoresis. DIFFERENTIAL DIAGNOSIS: Viral illness, dehydration, pancreatitis, ulcer, biliary colic, appendicitis, diverticulitis, electrolyte imbalance, anemia, bacteremia or sepsis, among others. EMERGENCY DEPARTMENT PROCEDURES: MEDICAL DECISION MAKING: There is a mild leukocytosis, this could be consistent with infection or his vomiting. A mild anemia was seen with a hemoglobin of 13. There was a normal platelet count. INR slightly elevated at 1.2, likely from his alcohol abuse. Renal panel testing shows hyperglycemia with a sugar of over 600. His potassium was high at 6.4. He was hyponatremic. There was evidence for acute renal failure with a creatinine over 3. Lactic acid level was elevated at over 4 consistent with dehydration and/or sepsis. Patient had findings of liver failure with a bilirubin of over 12. The AST ALT and alk phos were slightly elevated. Ammonia level was high at 85 consistent with liver disease. Total CK was not elevated making rhabdomyolysis unlikely. Procalcitonin level was elevated suggesting a bacterial infection. Patient appeared to be in a euthyroid state. Alcohol level was undetectable. Respiratory bio fire was negative. Chest x-ray did not show pneumonia or CHF. Brain CT showed no acute bleed or mass effect. Sinusitis was noted on the CT imaging. Abdominal and pelvis CT showed some ascites and liver cirrhosis, no acute surgical process by CT imaging. No bowel obstruction. ECG showed a sinus rhythm, no obvious ischemia. Peaked T waves were noted. Cardiac enzyme testing x 1 was not consistent with acute cardiac injury. Urinalysis result is pending. On exam, the patient appeared dehydrated, he was at times hypotensive. He was tender with palpation of the right upper quadrant. The patient was aggressively managed. He received 2.5 L of IV saline. This should be sufficient IV saline (30cc/kg) to cover for sepsis protocol based on his actual body weight. He received IV Zosyn as empiric antibiotic coverage. He was given IV Zofran for nausea. Because of the hyperkalemia, he received IV insulin, IV calcium, IV bicarb. He was given IV thiamine and IV folate because of his history of alcohol abuse. He received IV Pepcid. A Titus catheter was placed to monitor urine output. Since he 2.5 L IV saline bolus, the patient's blood pressure is improved at about 105 systolic. His map is in the 70s. He is awake and interactive and does appear improved clinically compared to when he first arrived. The patient is clearly in need of a hospital stay. He will require further workup and resuscitation. The root cause for his entire presentation is not yet clear. I did speak with the ICU attending. The patient will be hospitalized on the ICU floor. I spoke with case management, the on-call hospitalist was consulted. Of note, after his IV fluids and after the medications administered here in the ED, the patient's blood sugar has improved, his sodium has improved, his potassium has improved, his creatinine has improved. He is producing urine in the Titus leg bag. Prior/Outside records/notes reviewed: Today's EMS notes describing his presentation and transport to this hospital. ECG per my interpretation: Indication was abdominal pain. The ECG shows a normal sinus rhythm with a rate of 96. There is an old septal infarct. There is no acute ST elevation, no PVCs. There are some peaked T waves. QTc was 454. Continuous Cardiac Monitoring per my interpretation: An order was placed for continuous cardiac monitoring. The monitor shows a rate of 97 with normal sinus rhythm. Imaging/x-ray results per my interpretation: Chest x-ray does not show pneumonia or CHF. Chronic Medical/Social conditions affecting care: History of alcohol abuse Care/Management discussed with: Case management, the on-call hospitalist. ICU staff-Dr. Whittington Level of care consideration(s): After review of the information above and other included data: --I believe the patient requires escalation of care to admission Critical Care Note: I have personally spent 59 minutes of critical care time in the direct management of this patient. This includes bedside care, interpretation of diagnostic studies, and testing, discussion with consultants, patient, and family members, and other required patient management activities. This 59 minutes is in excess of all separately billable procedures. DISPOSITION: Admission Past Med/Surg History Problem List Vomiting (Acute) Elevated lactic acid level (Acute) Liver failure (Acute) Acute hyperglycemia (Acute) Acute hyponatremia (Acute) Acute hyperkalemia (Acute) CEE (acute kidney injury) (Acute) Alcohol abuse (Acute) Hypotension (Acute) Traumatic open wound of left lower leg Hypomagnesemia Wound of left leg Hypertension History of chronic urinary tract infection Incomplete emptying of bladder BPH NOS w ur obs/LUTS Acute UTI No pertinent family history Bilateral hydronephrosis Bladder outlet obstruction (Acute) Stroke-like symptoms (Acute) Alcoholism (Acute) Renal calculi (Chronic) Alcohol abuse (Chronic) S/P lens implant (Chronic) Medical History (Updated 11/20/24 @ 18:23 by Josh Tovar MD) Retained ureteral stent Alcohol dependence Social History Smoking Status: Former smoker Second Hand Exposure: No; Do You Dip or Chew Tobacco: Yes; Hx Alcohol Use: Yes Alcohol type: beer Hx Substance Use: No Preferred Language: French Communication Ability: Effective Employment Program Representative Required: No Beliefs That Will Affect Care: None Current Living Situation: Alone current occupational status: disabled Feels Safe at Home: Yes Assistive Devices: Hearing Aid - Bilateral Allergies Allergies Allergy/AdvReac Type Severity Reaction Status Date / Time No Known Allergies Allergy Verified 04/04/21 18:18 Home Meds Home Medications Medication Instructions Recorded Confirmed folic acid 1 mg tablet 1 mg PO QAM 05/02/18 11/20/24 lisinopril 20 mg tablet 20 mg PO QAM 09/13/18 11/20/24 aspirin 81 mg tablet,delayed 81 mg PO DAILY 04/04/21 11/20/24 release albuterol sulfate 90 mcg/actuation 1 puff inhalation DIRECTED PRN 11/20/24 11/20/24 aerosol inhaler SOB/Wheezing hydroxyzine HCl 50 mg tablet 25 - 50 mg PO Q6H PRN Unknown 11/20/24 11/20/24 Previous Rx's Medication Instructions Recorded magnesium chloride 64 mg 64 mg PO BID #60 tabs 06/13/20 (magnesium chloride) tablet,delayed release (Mag 64) Results & Data (ED) Vital Signs Vital Signs - 24 hr 11/20/24 15:13 11/20/24 15:13 11/20/24 15:25 Temperature 36.4 C L Temperature Source Oral Pulse Rate 97 H 100 H Pulse Rate [Apical] Pulse Rhythm Pulse Rhythm [Apical] Pulse Strength [Apical] Respiratory Rate 20 Respiratory Effort / Characteristics Respiratory Depth Respiratory Pattern Blood Pressure 116/57 L Blood Pressure [Right Arm] Blood Pressure Mean 76 Blood Pressure Mean [Right Arm] Blood Pressure Position [Right Arm] Pulse Oximetry 95 100 Oxygen Delivery Method Room Air Room Air Nasal Cannula Oxygen Flow Rate 2 Sepsis Recent Fever Within 48 Hours No Sepsis New/Unexplained Change in Mental Status No Sepsis Action Taken by Nursing No Action Required Pulse Oximetry Post Tiitration 96 11/20/24 15:40 11/20/24 16:57 11/20/24 18:00 Temperature Temperature Source Pulse Rate 97 H Pulse Rate [Apical] 100 H 97 H Pulse Rhythm Regular Pulse Rhythm [Apical] Regular Pulse Strength [Apical] Normal Respiratory Rate 17 14 18 Respiratory Effort / Characteristics Non-Labored Spontaneous Respiratory Depth Normal Normal Respiratory Pattern Regular Regular Blood Pressure Blood Pressure [Right Arm] 91/44 L 92/54 L Blood Pressure Mean Blood Pressure Mean [Right Arm] 59 66 Blood Pressure Position [Right Arm] Lying Pulse Oximetry 95 92 96 Oxygen Delivery Method Room Air Room Air Room Air Oxygen Flow Rate Sepsis Recent Fever Within 48 Hours Sepsis New/Unexplained Change in Mental Status Sepsis Action Taken by Nursing Pulse Oximetry Post Tiitration Home Medications Current Medication List: was personally reviewed by me Laboratory Data Attestation: I reviewed the patient's lab results. 11/20/24 15:16 11/20/24 17:46 Lab Results 11/20/24 11/20/24 11/20/24 Range/Units 15:16 15:39 16:00 WBC 12.73 H (4.8-10.8) K/ul RBC 3.90 L (4.70-6.10) M/uL Hgb 13.0 L (14.0-18.0) g/dl Hct 35.3 L (42.0-52.0) % MCV 90.5 (80.0-100.0) fL MCH 33.3 (25.0-34.0) pg MCHC 36.8 H (32.0-36.0) g/dL RDW Std Deviation 49.6 H (36.4-46.3) fL RDW Coeff of Martir 15.1 H (11.5-14.5) % Plt Count 155 (130-400) K/uL MPV 12.6 H (9.4-12.4) fL Immature Gran % (Auto) 0.8 % Neut % (Auto) 84.8 % Lymph % (Auto) 4.9 % Kern % (Auto) 9.2 % Eos % (Auto) 0.2 % Baso % (Auto) 0.1 % Neut # (Auto) 10.81 H (1.40-6.50) K/uL Lymph # (Auto) 0.62 L (1.20-3.40) K/uL Kern # (Auto) 1.17 H (0.11-0.59) K/uL Eos # (Auto) 0.02 (0.00-0.50) K/uL Baso # (Auto) 0.01 (0.00-0.20) K/uL Immature Gran # (Auto) 0.10 (0.01-0.20) K/uL PT Cancelled INR Cancelled APTT Cancelled PTT Ratio Cancelled Sodium 119 L* (136-145) mmol/L Potassium 6.4 H* (3.5-5.1) mmol/L Chloride 82 L (98-107) mmol/L Carbon Dioxide 26 (21-32) mmol/L Anion Gap 11 (3-11) BUN 116 H (6-23) mg/dl Creatinine 3.15 H (0.6-1.4) mg/dl Est Cr Clr Drug Dosing 24.3 ml/min eGFR 21.74 BUN/Creatinine Ratio 36.8 H (10-20) Glucose 617 H* (70-99(Fasting)) mg/dl POC Glucose (70-99) mg/dl Lactate (0.4-2.0) mmol/L Calcium 10.6 H (8.6-10.3) mg/dl Magnesium 2.6 H (1.7-2.4) mg/dl Total Bilirubin 12.1 H (0.2-1.0) mg/dl AST 50 H (13-39) U/L ALT 63 H (7-52) U/L Alkaline Phosphatase 169 H (34-104) U/L Ammonia 85.0 H (18-72) umol/L Total Creatine Kinase 78 (30-223) U/L Troponin I High Sens 6.9 (0-20) pg/ml Total Protein 7.7 (6.0-8.3) gm/dl Albumin 3.0 L (3.4-5.0) gm/dl Globulin 4.7 H (2.5-4.0) gm/dl Albumin/Globulin Ratio 0.6 L (0.9-2) Procalcitonin 2.30 H (0-0.5) ng/ml TSH 1.059 (0.300-4.500) uIu/ml Ethyl Alcohol mg/dL < 10.0 (<10.0) mg/dl Adenovirus (PCR) Not Detected (NotDetected) B. pertussis DNA (PCR) Not Detected (NotDetected) B.parapertussis DNA PCR Not Detected (NotDetected) C. pneumoniae DNA (PCR) Not Detected (NotDetected) Coronavirus OC43 (PCR) Not Detected (NotDetected) Coronavirus HKU1 (PCR) Not Detected (NotDetected) Coronavirus 229E (PCR) Not Detected (NotDetected) SARS-CoV-2 (PCR) Not Detected (NotDetected) Coronavirus NL63 (PCR) Not Detected (NotDetected) Human Metapneumovir PCR Not Detected (NotDetected) Influenza Type A (PCR) Not Detected (NotDetected) Influenza Type B (PCR) Not Detected (NotDetected) M. pneumoniae (PCR) Not Detected (NotDetected) Parainfluenza 1 (PCR) Not Detected (NotDetected) Parainfluenza 2 (PCR) Not Detected (NotDetected) Parainfluenza 3 (PCR) Not Detected (NotDetected) Parainfluenza 4 (PCR) Not Detected (NotDetected) RSV (PCR) Not Detected (NotDetected) Entero/Rhino (PCR) Not Detected (NotDetected) 11/20/24 11/20/24 11/20/24 Range/Units 16:03 16:26 17:13 WBC (4.8-10.8) K/ul RBC (4.70-6.10) M/uL Hgb (14.0-18.0) g/dl Hct (42.0-52.0) % MCV (80.0-100.0) fL MCH (25.0-34.0) pg MCHC (32.0-36.0) g/dL RDW Std Deviation (36.4-46.3) fL RDW Coeff of Martir (11.5-14.5) % Plt Count (130-400) K/uL MPV (9.4-12.4) fL Immature Gran % (Auto) % Neut % (Auto) % Lymph % (Auto) % Kern % (Auto) % Eos % (Auto) % Baso % (Auto) % Neut # (Auto) (1.40-6.50) K/uL Lymph # (Auto) (1.20-3.40) K/uL Kern # (Auto) (0.11-0.59) K/uL Eos # (Auto) (0.00-0.50) K/uL Baso # (Auto) (0.00-0.20) K/uL Immature Gran # (Auto) (0.01-0.20) K/uL PT 12.6 H INR 1.2 H APTT 24 PTT Ratio 0.9 Sodium (136-145) mmol/L Potassium (3.5-5.1) mmol/L Chloride (98-107) mmol/L Carbon Dioxide (21-32) mmol/L Anion Gap (3-11) BUN (6-23) mg/dl Creatinine (0.6-1.4) mg/dl Est Cr Clr Drug Dosing ml/min eGFR BUN/Creatinine Ratio (10-20) Glucose (70-99(Fasting)) mg/dl POC Glucose 554 H* (70-99) mg/dl Lactate 4.4 H* (0.4-2.0) mmol/L Calcium (8.6-10.3) mg/dl Magnesium (1.7-2.4) mg/dl Total Bilirubin (0.2-1.0) mg/dl AST (13-39) U/L ALT (7-52) U/L Alkaline Phosphatase (34-104) U/L Ammonia (18-72) umol/L Total Creatine Kinase (30-223) U/L Troponin I High Sens (0-20) pg/ml Total Protein (6.0-8.3) gm/dl Albumin (3.4-5.0) gm/dl Globulin (2.5-4.0) gm/dl Albumin/Globulin Ratio (0.9-2) Procalcitonin (0-0.5) ng/ml TSH (0.300-4.500) uIu/ml Ethyl Alcohol mg/dL (<10.0) mg/dl Adenovirus (PCR) (NotDetected) B. pertussis DNA (PCR) (NotDetected) B.parapertussis DNA PCR (NotDetected) C. pneumoniae DNA (PCR) (NotDetected) Coronavirus OC43 (PCR) (NotDetected) Coronavirus HKU1 (PCR) (NotDetected) Coronavirus 229E (PCR) (NotDetected) SARS-CoV-2 (PCR) (NotDetected) Coronavirus NL63 (PCR) (NotDetected) Human Metapneumovir PCR (NotDetected) Influenza Type A (PCR) (NotDetected) Influenza Type B (PCR) (NotDetected) M. pneumoniae (PCR) (NotDetected) Parainfluenza 1 (PCR) (NotDetected) Parainfluenza 2 (PCR) (NotDetected) Parainfluenza 3 (PCR) (NotDetected) Parainfluenza 4 (PCR) (NotDetected) RSV (PCR) (NotDetected) Entero/Rhino (PCR) (NotDetected) 11/20/24 Range/Units 17:46 WBC (4.8-10.8) K/ul RBC (4.70-6.10) M/uL Hgb (14.0-18.0) g/dl Hct (42.0-52.0) % MCV (80.0-100.0) fL MCH (25.0-34.0) pg MCHC (32.0-36.0) g/dL RDW Std Deviation (36.4-46.3) fL RDW Coeff of Martir (11.5-14.5) % Plt Count (130-400) K/uL MPV (9.4-12.4) fL Immature Gran % (Auto) % Neut % (Auto) % Lymph % (Auto) % Kern % (Auto) % Eos % (Auto) % Baso % (Auto) % Neut # (Auto) (1.40-6.50) K/uL Lymph # (Auto) (1.20-3.40) K/uL Kern # (Auto) (0.11-0.59) K/uL Eos # (Auto) (0.00-0.50) K/uL Baso # (Auto) (0.00-0.20) K/uL Immature Gran # (Auto) (0.01-0.20) K/uL PT INR APTT PTT Ratio Sodium 126 L (136-145) mmol/L Potassium 5.9 H (3.5-5.1) mmol/L Chloride 90 L (98-107) mmol/L Carbon Dioxide 27 (21-32) mmol/L Anion Gap 9 (3-11) BUN 113 H (6-23) mg/dl Creatinine 2.71 H D (0.6-1.4) mg/dl Est Cr Clr Drug Dosing 28.2 ml/min eGFR 26.05 BUN/Creatinine Ratio 41.7 H (10-20) Glucose 428 H* (70-99(Fasting)) mg/dl POC Glucose (70-99) mg/dl Lactate (0.4-2.0) mmol/L Calcium 9.7 (8.6-10.3) mg/dl Magnesium (1.7-2.4) mg/dl Total Bilirubin (0.2-1.0) mg/dl AST (13-39) U/L ALT (7-52) U/L Alkaline Phosphatase (34-104) U/L Ammonia (18-72) umol/L Total Creatine Kinase (30-223) U/L Troponin I High Sens (0-20) pg/ml Total Protein (6.0-8.3) gm/dl Albumin (3.4-5.0) gm/dl Globulin (2.5-4.0) gm/dl Albumin/Globulin Ratio (0.9-2) Procalcitonin (0-0.5) ng/ml TSH (0.300-4.500) uIu/ml Ethyl Alcohol mg/dL (<10.0) mg/dl Adenovirus (PCR) (NotDetected) B. pertussis DNA (PCR) (NotDetected) B.parapertussis DNA PCR (NotDetected) C. pneumoniae DNA (PCR) (NotDetected) Coronavirus OC43 (PCR) (NotDetected) Coronavirus HKU1 (PCR) (NotDetected) Coronavirus 229E (PCR) (NotDetected) SARS-CoV-2 (PCR) (NotDetected) Coronavirus NL63 (PCR) (NotDetected) Human Metapneumovir PCR (NotDetected) Influenza Type A (PCR) (NotDetected) Influenza Type B (PCR) (NotDetected) M. pneumoniae (PCR) (NotDetected) Parainfluenza 1 (PCR) (NotDetected) Parainfluenza 2 (PCR) (NotDetected) Parainfluenza 3 (PCR) (NotDetected) Parainfluenza 4 (PCR) (NotDetected) RSV (PCR) (NotDetected) Entero/Rhino (PCR) (NotDetected) Administered Medications Discontinued Medications Thiamine HCl 100 mg/ Syringe 10 mls @ 2 mls/min IV NOW STA Stop: 11/20/24 15:22 Last Admin: 11/20/24 15:45 Dose: 2 mls/min Documented By: SNS Folic Acid 1 mg/ Syringe 10 mls @ 5 mls/min IV NOW STA Stop: 11/20/24 15:19 Last Admin: 11/20/24 15:44 Dose: 5 mls/min Documented By: SNS Sodium Chloride (Nss) 500 mls @ 999 mls/hr IV .Q31M ONE Stop: 11/20/24 15:48 Last Infusion: 11/20/24 16:20 Dose: Infused Documented By: Admin: 11/20/24 15:35 Dose: 999 mls/hr Documented By: SNS Famotidine (Pepcid 20mg Iv Push) 20 mg in 5 mls @ 2.5 mls/min IV NOW STA Stop: 11/20/24 15:19 Last Admin: 11/20/24 15:35 Dose: 2.5 mls/min Documented By: SNS Calcium Gluconate () 1,000 mg in 60 mls @ 240 mls/hr IV NOW STA Stop: 11/20/24 16:18 Last Infusion: 11/20/24 16:23 Dose: Infused Documented By: Admin: 11/20/24 16:08 Dose: 240 mls/hr Documented By: TATEE Sodium Chloride (Nss) 1,000 mls @ 999 mls/hr IV .Q1H1M ONE Stop: 11/20/24 17:34 Last Infusion: 11/20/24 17:41 Dose: Infused Documented By: Admin: 11/20/24 16:37 Dose: 999 mls/hr Documented By: SNS Piperacillin Sod/Tazobactam Sod (Zosyn) 4.5 gm in 100 mls @ 200 mls/hr IV NOW ONE Stop: 11/20/24 17:05 Last Infusion: 11/20/24 18:30 Dose: Infused Documented By: Admin: 11/20/24 17:42 Dose: 200 mls/hr Documented By: VERN Sodium Chloride (Nss) 1,000 mls @ 999 mls/hr IV .Q1H1M ONE Stop: 11/20/24 18:09 Last Admin: 11/20/24 17:43 Dose: 999 mls/hr Documented By: VERN Insulin Human Regular (Novolin-R Insulin Per Unit Charge) 10 units IV NOW STA Stop: 11/20/24 16:05 Last Admin: 11/20/24 16:09 Dose: 10 units Documented By: DAIJA Co-signed By: JANET Ondansetron HCl (Ondansetron Inj 2 Mg/Ml 2 Ml Vial) 4 mg IV NOW STA Stop: 11/20/24 15:19 Last Admin: 11/20/24 15:35 Dose: 4 mg Documented By: JANET Sodium Bicarbonate (Sodium Bicarb 8.4% Inj 50 Meq/50 Ml Syr) 50 meq IV NOW STA Stop: 11/20/24 16:05 Last Admin: 11/20/24 16:08 Dose: 50 meq Documented By: DAIJA Imaging Data Radiologist's Impression: Chest X-Ray 11/20/24 15:19 XR chest 1V portable CLINICAL HISTORY: weakness COMPARISON STUDY: 08/05/2022 FINDINGS: Single view portable chest demonstrates no acute process alive for low lung volumes. No focal airspace opacity or pleural effusion. There is no atelectasis or pneumothorax. The heart and pulmonary vascularity are unremarkable for technique. IMPRESSION: No acute process ACT 112: Negative or not required by law. Electronically signed by: Brooke Eason M.D. 11/20/2024 3:[address] 11/20/24 15:19 Technique: Axial computed tomography images were obtained of the brain from the vertex to the skull base without intravenous contrast. Comparison is made to the prior CT dated 02/26/2020 Findings: There is no sign of intracranial hemorrhage. There is an apparent old infarct of the left basal ganglia and the anterior limb of the left internal capsule, new since the prior study. No clear acute infarct is seen. No midline shift or other form of herniation is identified. There is no hydrocephalus. No obvious mass lesion is seen on this noncontrast examination. There is near complete opacification of the left maxillary sinus due to mucosal thickening and fluid. The mastoid air cells appear clear Impression: 1. 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 Left maxillary sinusitis ACT 112: Positive. There are findings on this exam that require communication between the performing entity and the patient following Patient Test Result Information Act ([place] ACT 112) guidelines. Electronically signed by Demarco Bolton 11-20-2024 5:57 PM Abdomen/Pelvis CT 11/20/24 16:12 Technique: Axial computed tomography images were obtained of the abdomen and pelvis without intravenous contrast. Comparison is made to the prior CT dated 06/09/2020 Findings: The liver is shrunken and nodular in contour, consistent with cirrhosis. No definite liver mass lesion is seen on this noncontrast study. The gallbladder appears unremarkable. No bile duct dilatation is noted. The spleen is of normal size. No focal splenic lesion is evident. The pancreas appears normal with no sign of acute or chronic pancreatitis and no mass lesion noted. The pancreatic duct is of normal caliber. The adrenal glands appear unremarkable. No renal or proximal ureteral calculi are seen. There is no hydronephrosis or perinephric stranding. No definite renal mass lesion is identified. There is right renal cortical scarring The aorta is of normal caliber. No abdominal adenopathy is seen. The stomach appears normal. There is no sign of small bowel obstruction. The colon appears unremarkable. There is no definite sign of appendicitis. No free intraperitoneal air is identified. There is a minimal amount of ascites No distal ureteral or bladder calculi are seen. No obvious bladder mass lesion is evident. The iliac arteries are of normal caliber. No pelvic adenopathy is noted. There are small bilateral inguinal hernias containing only fat The lungs bases appear clear. No fracture is identified. No focal osseous lesion is seen Impression: 1. Cirrhosis, worsened since the prior study 2. Minimal amount of ascites 3. Small bilateral inguinal hernias containing only fat ACT 112: Positive. There are findings on this exam that require communication between the performing entity and the patient following Patient Test Result Information Act ([place] ACT 112) guidelines. Electronically signed by Demarco Bolton 11-20-2024 6:07 PM Discharge Plan Visit Data Chief Complaint: Weakness Stated Complaint: ABDOMINAL PAIN, WEAKNESS ED Provider: Josh Tovar Discharge Problem: Hypotension, Alcohol abuse, CEE (acute kidney injury), Acute hyperkalemia, Acute hyponatremia, Acute hyperglycemia, Liver failure, Elevated lactic acid level, Vomiting Patient Disposition: Admitted As Inpatient Condition: Serious Forms Stand Alone Forms: [facility] Prescriptions Prescriptions: No Action folic acid 1 mg Tablet 1 mg PO QAM Rx Instructions: Not on file w/ pharmacy at this date/time. lisinopril 20 mg Tablet 20 mg PO QAM magnesium chloride [Mag 64] 64 mg Tablet,Delayed Release (Dr/Ec) 64 mg PO BID Qty: 60 0RF Rx Instructions: Unable to verify OTC meds at this date/time. aspirin [Aspir-Low] 81 mg Tablet,Delayed Release (Dr/Ec) 81 mg PO DAILY Rx Instructions: Unable to verify OTC meds at this date/time. hydroxyzine HCl 50 mg tablet 25 - 50 mg PO Q6H PRN (Reason: Unknown) Rx Instructions: Take 25mg to 50 mg by mouth every 6 hours as needed albuterol sulfate 90 mcg/actuation HFA aerosol inhaler 1 puff inhalation DIRECTED PRN (Reason: SOB/Wheezing) Referrals Referrals: Luly Guajardo PA-C [Primary Care Provider] - Discharge Problem: Hypotension Qualifiers: Hypotension type: unspecified hypotension type Qualified Code(s): I95.9 - Hypotension, unspecified Liver failure Qualifiers: Liver failure chronicity: subacute Hepatic coma status: without hepatic coma Q ualified Code(s): K72.00 - Acute and subacute hepatic failure without coma Vomiting Qualifiers: Vomiting type: unspecified Nausea presence: with nausea Qualified Code(s): R 11.2 - Nausea with vomiting, unspecified
[2024-11-20] MEDS: SODIUM CHLORIDE 0.9% 500 ML IV ONE (15:35)
[2024-11-20] MEDS: ONDANSETRON INJ 2 MG/ML 2 ML VIAL IV STA (15:35)
[2024-11-20] MEDS: FAMOTIDINE 20MG IV PUSH 20 MG/5 ML SYR IV STA (15:35)
[2024-11-20 15:36] LABS: Basophils # (auto) 0.01 K/uL (0.00-0.20); Basophils % (auto) 0.1 %; Eosinophils # (auto) 0.02 K/uL (0.00-0.50); Eosinophils % (auto) 0.2 %; Hematocrit (blood only) 35.3 % (42.0-52.0); Immature Granulocytes % (auto) 0.8 %; Lymphocytes # (auto) 0.62 K/uL (1.20-3.40); Lymphocytes % (auto) 4.9 %; Mean Corpuscular Hemoglobin 33.3 pg (25.0-34.0); Mean Corpuscular Hgb Conc 36.8 g/dL (32.0-36.0); Mean Corpuscular Volume 90.5 fL (80.0-100.0); Mean Platelet Volume 12.6 fL (9.4-12.4); Monocytes # (auto) 1.17 K/uL (0.11-0.59); Monocytes % (auto) 9.2 %; Neutrophils # (auto) 10.81 K/uL (1.40-6.50); Neutrophils % (auto) 84.8 %; Platelet Count 155 K/uL (130-400); RDW Coefficient of Variation 15.1 % (11.5-14.5); RDW Standard Deviation 49.6 fL (36.4-46.3); White Blood Count 12.73 K/ul (4.8-10.8)
[2024-11-20] MEDS: FOLIC ACID 1 MG in SYRINGE 9.8 ML IV STA (15:44)
[2024-11-20] MEDS: THIAMINE HCL 100 MG in SYRINGE 9 ML IV STA (15:45)
--- NOTE | 2024-11-20 15:54 | XRay Report ---
XR chest 1V portable CLINICAL HISTORY: weakness COMPARISON STUDY: 08/05/2022 FINDINGS: Single view portable chest demonstrates no acute process alive for low lung volumes. No foc al airspace opacity or pleural effusion. There is no atelectasis or pneumothorax. The heart and pulmo nary vascularity are unremarkable for technique. IMPRESSION: No acute process ACT 112: Negative or not required by law. Electronically signed by: Brooke Eason M.D. 11/20/2024 3:51 PM
[2024-11-20 16:01] LABS: Albumin Globulin Ratio 0.6 (0.9-2); BUN Creatinine Ratio 36.8 (10-20); Bilirubin,Total 12.1 mg/dl (0.2-1.0); Calcium 10.6 mg/dl (8.6-10.3); Creatinine Clr Calc Pharmacy 24.3 ml/min; Globulin 4.7 gm/dl (2.5-4.0); Magnesium 2.6 mg/dl (1.7-2.4); Potassium 6.4 mmol/L (3.5-5.1); Total Protein 7.7 gm/dl (6.0-8.3); Troponin I High Sensitivity 6.9 pg/ml (0-20)
[2024-11-20] MEDS: CALCIUM GLUCONATE 1,000 MG/60 ML BAG IV STA (16:08)
[2024-11-20] MEDS: SODIUM BICARB 8.4% INJ 50 MEQ/50 ML SYR IV STA (16:08)
[2024-11-20] MEDS: NovoLIN-R INSULIN PER UNIT CHARGE IV STA (16:09)
[2024-11-20 16:13] LABS: Thyroid Stimulating Hormone 1.059 uIu/ml (0.300-4.500)
--- NOTE | 2024-11-20 16:19 | Electrocardiogram Report ---
Test Reason : Blood Pressure : */* mmHG Vent. Rate : 96 BPM Atrial Rate : 96 BPM P-R Int : 186 ms QRS Dur : 98 ms QT Int : 360 ms P-R-T Axes : 48 19 56 degrees QTcB Int : 454 ms Normal sinus rhythm Old Septal infarct (cited on or before 09-Jun-2022) Abnormal ECG When compared with ECG of 05-Aug-2022 19:24, No significant change Confirmed by Charlie Dwyer ([id number]) on 11/20/2024 4:18:58 PM Referred By: REFERRED SELF Confirmed By: Charlie Dwyer
[2024-11-20 16:35] LABS: Adenovirus PCR Not Detected (NotDetected); Bordetella parapertussis PCR Not Detected (NotDetected); Bordetella pertussis PCR Not Detected (NotDetected); Chlamydia pneumoniae PCR Not Detected (NotDetected); Coronavirus 229E PCR Not Detected (NotDetected); Coronavirus CoV-2 (COVID19)PCR Not Detected (NotDetected); Coronavirus HKU1 PCR Not Detected (NotDetected); Coronavirus NL63 PCR Not Detected (NotDetected); Coronavirus OC43PCR Not Detected (NotDetected); Human Metapneumovirus PCR Not Detected (NotDetected); Influenza A PCR Not Detected (NotDetected); Influenza B PCR Not Detected (NotDetected); Mycoplasma pneumoniae PCR Not Detected (NotDetected); Parainfluenza Virus 1 PCR Not Detected (NotDetected); Parainfluenza Virus 2 PCR Not Detected (NotDetected); Parainfluenza Virus 3 PCR Not Detected (NotDetected); Parainfluenza Virus 4 PCR Not Detected (NotDetected); Respiratory Syncytial VirusPCR Not Detected (NotDetected); Rhinovirus/Enterovirus PCR Not Detected (NotDetected)
[2024-11-20] MEDS: SODIUM CHLORIDE 0.9% 1,000 ML IV ONE ×2 (16:37→17:43)
[2024-11-20 16:42] LABS: INR 1.2 (0.9-1.1); Partial Thromboplastin Ratio 0.9; Partial Thromboplastin Time 24 Seconds (21-31); Prothrombin Time 12.6 Seconds (9.0-12.0)
[2024-11-20] MEDS: PIPERACILLIN/TAZOBACTAM 4.5 GM/100 ML BAG IV ONE ×2 (17:42→22:28)
--- NOTE | 2024-11-20 17:58 | CT Scan Report ---
Technique: Axial computed tomography images were obtained of the brain from the vertex to the skull base without intravenous contrast. Comparison is made to the prior CT dated 02/26/2020 Findings: There is no sign of intracranial hemorrhage. There is an apparent old infarct of the left basal ganglia and the anterior limb of the left internal capsule, new since the prior study. No clear acute infarct is seen. No midline shift or other form of herniation is identified. There is no hydrocephalus. No obvious mass lesion is seen on this noncontrast examination. There is near complete opacification of the left maxillary sinus due to mucosal thickening and fluid. The mastoid air cells appear clear Impression: 1. 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 Left maxillary sinusitis ACT 112: Positive. There are findings on this exam that require communication between the performing entity and the patient following Patient Test Result Information Act ([place] ACT 112) guidelines. Electronically signed by Demarco Bolton 11-20-2024 5:57 PM
--- NOTE | 2024-11-20 18:07 | CT Scan Report ---
Technique: Axial computed tomography images were obtained of the abdomen and pelvis without intravenous contrast. Comparison is made to the prior CT dated 06/09/2020 Findings: The liver is shrunken and nodular in contour, consistent with cirrhosis. No definite liver mass lesion is seen on this noncontrast study. The gallbladder appears unremarkable. No bile duct dilatation is noted. The spleen is of normal size. No focal splenic lesion is evident. The pancreas appears normal with no sign of acute or chronic pancreatitis and no mass lesion noted. The pancreatic duct is of normal caliber. The adrenal glands appear unremarkable. No renal or proximal ureteral calculi are seen. There is no hydronephrosis or perinephric stranding. No definite renal mass lesion is identified. There is right renal cortical scarring The aorta is of normal caliber. No abdominal adenopathy is seen. The stomach appears normal. There is no sign of small bowel obstruction. The colon appears unremarkable. There is no definite sign of appendicitis. No free intraperitoneal air is identified. There is a minimal amount of ascites No distal ureteral or bladder calculi are seen. No obvious bladder mass lesion is evident. The iliac arteries are of normal caliber. No pelvic adenopathy is noted. There are small bilateral inguinal hernias containing only fat The lungs bases appear clear. No fracture is identified. No focal osseous lesion is seen Impression: 1. Cirrhosis, worsened since the prior study 2. Minimal amount of ascites 3. Small bilateral inguinal hernias containing only fat ACT 112: Positive. There are findings on this exam that require communication between the performing entity and the patient following Patient Test Result Information Act ([place] ACT 112) guidelines. Electronically signed by Demarco Bolton 11-20-2024 6:07 PM
[2024-11-20 18:31] LABS: BUN Creatinine Ratio 41.7 (10-20); Calcium 9.7 mg/dl (8.6-10.3); Creatinine Clr Calc Pharmacy 28.2 ml/min; Potassium 5.9 mmol/L (3.5-5.1)
--- NOTE | 2024-11-20 18:38 | History & Physical Report ---
Date of Service November 20, 2024 Assessment & Plan (1) ARF (acute renal failure): (2) Cirrhosis: (3) Sepsis: Plan Pt is a 59yoM with PMhx significant for alcoholism, thrombocytopenia, HTN, history of bilateral hearing loss, congenital cataracts to both eyes who presents from home with family members out of concern for his mental status and inability to move at home. Pt admitted to the ICU. He is currently being treated for the following: Acute Metabolic/Toxic Encephalopathy Pt altered Hx of alcohol abuse, last drink per family the night before Head CT with past stroke and concerning for sinusitis Ammonia elevated at 85 Alcohol level <10 AWSS protocol Delirium precautions, assistive hearing and visual devices as needed Continue to monitor Sepsis with Shock Complicated UTI Pt with leukocytosis, tachycardia Procalcitonin elevated Lactate elevated BP initially soft UA suggestive of infection, urine cx pending Blood Cx x 2 sets pending Pt with excoriated healing skin lesions especially on his lower extremities CT head noting sinusitis Continue with IV Zosyn and Daptomycin Severe Hyperglycemia Pt with noted elevated glucose levels in [facility] from 2023 hemoglobin A1c pending ?[facility] picture ICU hyperglycemia protocol Glycemic consult [employer] Cirrhosis/Liver Failure Chronic alcohol use Pt with long history of alcohol abuse Liver enzymes significantly elevated Ammonia level elevated CT abd/pelvis noting worsening cirrhosis and minimal ascites Thiamine and folic acid supplements Monitor for alcohol withdrawal Consider GI consult Acute Kidney Injury Cr elevated at 3.15 on admission IV fluids Avoid nephrotoxic meds as able- hold home lisinopril Consider Nephrology consult Hyperkalemia K of 6.4 on arrival Received sodium bicarb in the ED Likely in setting of hyperglycemia, renal failure above, lisinopril use Holding home lisinopril Noted EKG changes in the ED Anticipate improvement with glucose control and fluids Improving Continue to monitor Acute on Chronic Hyponatremia Pt with chronic alcohol hx and chronic hyponatremia Also superimposed pseudohyponatremia in setting of hyperglycemia Urine lytes Consider Nephrology consult Diet: currently NPO DVT prophylaxis: heparin SQ CODE STATUS: discussed with pt's sister who stated they would want him a full code initially, then decide on status Dispo: admit to the ICU History of Present Illness Chief Complaint: AMS Primary Care Provider: Luly Guajardo PA-C Pt is a 59yoM with PMhx significant for alcoholism, thrombocytopenia, HTN, history of bilateral hearing loss, congenital cataracts to both eyes who presents from home with family members out of concern for his mental status and inability to move at home. Pt admitted to the ICU. Patient pleasantly confused on exam. Additional history obtained from patient's sister via telephone. She states that the patient was found by their cousin Rox who called 911 after she noted that he was altered mentally and could not talk or could not get up. She notes that he is a chronic alcoholic and has been for the last 15 to 20 years. States that for the last month he has been drinking at least three to four of a [id number] . She states that though this morning he was found with a cold beer next to him, it was untouched. Believes that his last drink was the night before. States that he was not even able to have his beer and that was concerning to the family. Allergies Allergy/AdvReac Type Severity Reaction Status Date / Time No Known Allergies Allergy Verified 04/04/21 18:18 Home Medications Medication Instructions Recorded Confirmed Type folic acid 1 mg tablet 1 mg PO QAM 05/02/18 11/20/24 History lisinopril 20 mg tablet 20 mg PO QAM 09/13/18 11/20/24 History magnesium chloride 64 mg 64 mg PO BID #60 tabs 06/13/20 11/20/24 Rx (magnesium chloride) tablet,delayed release (Mag 64) aspirin 81 mg tablet,delayed 81 mg PO DAILY 04/04/21 11/20/24 History release albuterol sulfate 90 mcg/actuation 1 puff inhalation DIRECTED PRN 11/20/24 11/20/24 History aerosol inhaler SOB/Wheezing hydroxyzine HCl 50 mg tablet 25 - 50 mg PO Q6H PRN Unknown 11/20/24 11/20/24 History Past Med/Surg History Problem List ARF (acute renal failure) Cirrhosis Sepsis Vomiting (Acute) Elevated lactic acid level (Acute) Liver failure (Acute) Acute hyperglycemia (Acute) Acute hyponatremia (Acute) Acute hyperkalemia (Acute) CEE (acute kidney injury) (Acute) Alcohol abuse (Acute) Hypotension (Acute) Traumatic open wound of left lower leg Hypomagnesemia Wound of left leg Hypertension History of chronic urinary tract infection Incomplete emptying of bladder BPH NOS w ur obs/LUTS Acute UTI No pertinent family history Bilateral hydronephrosis Bladder outlet obstruction (Acute) Stroke-like symptoms (Acute) Alcoholism (Acute) Renal calculi (Chronic) Alcohol abuse (Chronic) S/P lens implant (Chronic) Medical History (Updated 11/20/24 @ 19:35 by EDUARDO Velasquez) Retained ureteral stent Alcohol dependence Social History Smoking Status: Never smoker Second Hand Exposure: No; Do You Dip or Chew Tobacco: Yes; Hx Alcohol Use: Yes Alcohol type: beer Preferred Language: Macedonian Communication Ability: Effective Personal Care Attendant Required: No Beliefs That Will Affect Care: None Current Living Situation: Alone current occupational status: disabled Other Information That Helps Us Care for You: No Feels Safe at Home: Yes Safety Concerns: Feels Safe At This Time Assistive Devices: Hearing Aid - Bilateral Review of Systems Review of Systems: All systems reviewed & are unremarkable except as noted in Subjective Physical Exam Physical Exam: General: Alert, not oriented. CV: RRR Resp: Breath sounds clear bilaterally, no increased effort of breathing Abdomen: Soft, nontender Extremities: excoriated lesions on lower extremities bilaterally. Results & Data Results & Data Vital Signs (Past 12 Hours) Vital Signs Temp Pulse Pulse Resp BP BP Pulse Ox 11/20/24 18:00 97 H 18 92/54 L 96 11/20/24 16:57 100 H 14 91/44 L 92 11/20/24 15:40 97 H 17 95 11/20/24 15:25 100 H 11/20/24 15:13 100 11/20/24 15:13 36.4 C L 97 H 20 116/57 L 95 O2 Del Method O2 Flow Rate 11/20/24 18:00 Room Air 11/20/24 16:57 Room Air 11/20/24 15:40 Room Air 11/20/24 15:25 11/20/24 15:13 Room Air, Nasal Cannula 2 11/20/24 15:13 Room Air
[2024-11-20 18:41] LABS: Appearance Urine Clear (Clear); Bilirubin Urine 1+ (Negative); Blood Urine Negative (Negative); Color Urine Dark Yellow; Epithelial Cell Urine Auto 0-2 /hpf (0-2); Glucose Urine UA 3+ (Negative); Ketones Urine Trace (Negative); Leukocyte Esterase Urine Trace (Negative); Nitrite Urine Positive (Negative); Protein Urine Negative (Negative); RBC Urine Automated 0-2 /hpf (0-2); Specific Gravity Urine 1.016 (1.000-1.030); Urobilinogen Urine Positive (Negative); WBC Urine Automated 0-5 /hpf (0-5); pH Urine 5.5 (4.5-7.5)
--- NOTE | 2024-11-20 18:57 | Critical Care Consultation ---
Date of Consultation November 20, 2024 Assessment & Plan (1) Sepsis: (2) Cirrhosis: (3) Acute hyperglycemia: (4) Acute hyponatremia: (5) Acute hyperkalemia: (6) Alcohol abuse: (7) ARF (acute renal failure): Plan Reason Critically Ill: 59 YOM presents via EMS to ER for complaints of abdominal pain. Concern for septic shock with organ dysfunction as well as chronic cirrhosis. ICU for hyperkalemia, renal failure, and possible need for vasopressor support. Neuro - Metabolic grade II hepatic encephalopathy - Will provide high dose thiamine- 500mg IV TID as he is with some nystagmus and tremors - Continue to monitor for ETOH withdraw- CIWAA protocol- will use benzos as primary with his cirrhosis, but more so with his encephalopathy - ammonia slightly elevated at 85- add lactulose BID Cardiac - Shock, - likely combination of septic shock with hypovolemia- he has currently responded well to volume resuscitation with crystalloid - continue with crystalloid infusion- may provide albumin if needing further boluses - follow perfusion and volume status with NIBP as well as urine output- consider POCUS vs PLR if needed for further evaluation -lactate is downtrending- re-evaluate on arrival to ICU and in am - follow daily BMP, CMP, and sooner if needed to eval organ dysfunction - hold antihypertensives at this time - could consider addition of midodrine - Levophed if needed to maintain MAPS >65 Respiratory - No acute needs GI - Acute on Chronic cirrhosis - elevated LFTS with slight elevation of his INR at 1.2- follow in am following lutheran of adequate volume and MAPS - no acute pathology noted on CT abd/pelvis RENAL/LYTES - ARF non oliguric, multiple electrolyte disturbances - ARF likely secondary to decreased oral intake, sepsis and hypovolemia - fluid resuscitation as above - Hyperkalemia- responded to initial therapy and patient is making urine - consider addition of Lokelma - addition of bicarb infusion if refractory - kaliureses if hemodynamics stable - Hyperkalemia should improve with control of blood sugar as well as volume - Hyponatremia associated with hypochloremia and hyperglycemia- likely secondary to hypovolemia and may have some potomania effects- he has already received multiple doses of saline in the ER- so will hold on further labs at this time - No acute needs - Dumont to monitor NILDA in setting of ARF- remove Dumont when hemodynamics stable and improvement in renal indices ENDO - Elevated blood glucose without diagnosis of diabetes - ICU hyperglycemia protocol - Basal bolus insulin likely will be effective- consider insulin infusion if BG difficult to control or hyperkalemia refractory - BICARB > 18, PH preserved, BG 428- not DKA - and likely not HHS based on glucose levels, - will check serum osmo HEME - No acute needs ID - Septic shock - SIRS with organ dysfunction - elevated WBC, elevated NLR, elevated PCT- - source- skin vs, urine vs. intraabdominal or combination of these - ascites is small volume - could consider IR to obtain diagnostic sample if needed - Zosyn and dapto for now LINES/IV ACCESS - PIV, Dumont Continue use of these lines DVT PROPHYLAXIS - SCDS, Heparin sub q DISPO: ICU until hemodynamics and electrolytes are stable I have personally spent 55 minutes of care time in the direct management of this patient. This is a life/limb threatening event. This includes time spent evaluating patient, direct bedside care, chart review, placing orders, interpretation of diagnostic studies, discussion with consultants, patient, and family members, as well as other required patient management activities. This time is exclusive of all separately billable procedures, and teaching time and separate from and in addition to any other critical care service time. Thank you for allowing us to participate in the care of this patient. Please refer to my attending physician's documentation for any further recommendations. History of Present Illness Reason for Consultation: sepsis with ARF and hyperkalemia Requesting Physician: Melissa Lyle MD Attending Physician: Melissa Lyle MD History of Present Illness 59 YOM with no recent admissions or notes available in our medical system for review. Patient reports that he was brought into the ER today after his cousin called 911 for him secondary to abdominal pain and weakness. The family was over to check on the patient, because he said he wasn't feeling well for the past 2 days. He reports generalized abdominal pain that is located in the center of his abdomen right above his umbilicus. He reports that this started about 2 days ago and was associated with some nausea and vomiting. He reports no diarrhea, but reports loss of appetite. Patient does not recall fevers. He reports history of alcohol misuse with about 12-15 beers per day. He thinks his last drink was yesterday 11/19/24 or on 11/18/24. In the ER the patient was noted to be hypotensive. He had routine labs performed and CT abd/pelvis completed as well as CT head completed. No acute process on his imaging. Chronic cirrhosis changes and mild ascites. His labs were notable for leukocytosis, elevated PCT, elevated renal function and elevated potassium. He was given 3L crystalloid infusion hyperkalemia treatment and dumont placed. Blood cultures were obtained and Zosyn was administered. UA was no overtly suspicious for infection. ICU was consulted for sepsis with ARF non oliguric with hyperkalemia in setting of chronic cirrhosis. Patient will be monitored for hemodynamics for possible need of vasopressors, continue resuscitation, and managment of electrolytes and acid base disturbances. CODE: FULL Allergies Allergy/AdvReac Type Severity Reaction Status Date / Time No Known Allergies Allergy Verified 04/04/21 18:18 Home Medications Medication Instructions Recorded Confirmed Type folic acid 1 mg tablet 1 mg PO QAM 05/02/18 11/20/24 History lisinopril 20 mg tablet 20 mg PO QAM 09/13/18 11/20/24 History magnesium chloride 64 mg 64 mg PO BID #60 tabs 06/13/20 11/20/24 Rx (magnesium chloride) tablet,delayed release (Mag 64) aspirin 81 mg tablet,delayed 81 mg PO DAILY 04/04/21 11/20/24 History release albuterol sulfate 90 mcg/actuation 1 puff inhalation DIRECTED PRN 11/20/24 11/20/24 History aerosol inhaler SOB/Wheezing hydroxyzine HCl 50 mg tablet 25 - 50 mg PO Q6H PRN Unknown 11/20/24 11/20/24 History Patient History Medical History (Updated 11/20/24 @ 19:35 by EDUARDO Velasquez) Retained ureteral stent Alcohol dependence Social History Smoking Status: Never smoker Second Hand Exposure: No; Do You Dip or Chew Tobacco: Yes; Hx Alcohol Use: Yes Alcohol type: beer Preferred Language: Chinese Communication Ability: Effective Circuit Recorder Required: No Beliefs That Will Affect Care: None Current Living Situation: Alone current occupational status: disabled Other Information That Helps Us Care for You: No Feels Safe at Home: Yes Safety Concerns: Feels Safe At This Time Assistive Devices: Hearing Aid - Bilateral Review of Systems Review of Systems: as per HPI, limited by patient encephalopathy Physical Exam Physical Exam: PHYSICAL EXAM: General: lethargic, ill apearing Head: Normocephalic, atraumatic Neuro: Awakens to voice, mild encephalopathy grade II, AAO x 3, speech slow and mostly appropriate, mild nystagmus, moves all extremities, tremor noted, no asterixis apprecaited Chest: equal rise and fall of the chest, no accessory muscle use, no heaves or thrills, Clear to auscultation, on room air, Cardiac: Regular rate and rhythm, telemetry reviewed, skin warm and dry, peripheral pulses 2+ GI: NABS x 4 quadrants, tender to palpation center, no rebound or gaurding : dumont to gravity draining elinor colored urine Skin: dried blood to bilateral lower legs and scratches noted on legs- patient reports this is from him scratching and digging. Results & Data Results & Data Vital Signs (Past 12 Hours) Vital Signs Temp Pulse Pulse Resp BP BP Pulse Ox 11/20/24 18:00 97 H 18 92/54 L 96 11/20/24 16:57 100 H 14 91/44 L 92 11/20/24 15:40 97 H 17 95 11/20/24 15:25 100 H 11/20/24 15:13 100 11/20/24 15:13 36.4 C L 97 H 20 116/57 L 95 O2 Del Method O2 Flow Rate 11/20/24 18:00 Room Air 11/20/24 16:57 Room Air 11/20/24 15:40 Room Air 11/20/24 15:25 11/20/24 15:13 Room Air, Nasal Cannula 2 11/20/24 15:13 Room Air Laboratory Results Abnormal lab results 11/20/24 11/20/24 11/20/24 Range/Units 15:16 16:00 16:03 WBC 12.73 H (4.8-10.8) K/ul RBC 3.90 L (4.70-6.10) M/uL Hgb 13.0 L (14.0-18.0) g/dl Hct 35.3 L (42.0-52.0) % MCHC 36.8 H (32.0-36.0) g/dL RDW Std Deviation 49.6 H (36.4-46.3) fL RDW Coeff of Martir 15.1 H (11.5-14.5) % MPV 12.6 H (9.4-12.4) fL Neut # (Auto) 10.81 H (1.40-6.50) K/uL Lymph # (Auto) 0.62 L (1.20-3.40) K/uL [place] # (Auto) 1.17 H (0.11-0.59) K/uL PT 12.6 H (9.0-12.0) Seconds INR 1.2 H (0.9-1.1) Sodium 119 L* (136-145) mmol/L Potassium 6.4 H* (3.5-5.1) mmol/L Chloride 82 L (98-107) mmol/L BUN 116 H (6-23) mg/dl Creatinine 3.15 H (0.6-1.4) mg/dl BUN/Creatinine Ratio 36.8 H (10-20) Glucose 617 H* (70-99(Fasting)) mg/dl POC Glucose (70-99) mg/dl Lactate (0.4-2.0) mmol/L Calcium 10.6 H (8.6-10.3) mg/dl Magnesium 2.6 H (1.7-2.4) mg/dl Total Bilirubin 12.1 H (0.2-1.0) mg/dl AST 50 H (13-39) U/L ALT 63 H (7-52) U/L Alkaline Phosphatase 169 H (34-104) U/L Ammonia 85.0 H (18-72) umol/L Albumin 3.0 L (3.4-5.0) gm/dl Globulin 4.7 H (2.5-4.0) gm/dl Albumin/Globulin Ratio 0.6 L (0.9-2) Procalcitonin 2.30 H (0-0.5) ng/ml Urine Glucose (UA) 3+ H (Negative) Urine Ketones Trace H (Negative) Urine Nitrite Positive A (Negative) Urine Bilirubin 1+ H (Negative) Urine Urobilinogen Positive H (Negative) Ur Leukocyte Esterase Trace H (Negative) U Hyaline Cast (Auto) 6-10 H (0-2) /lpf Urine Bacteria (Auto) 1+ H (None Seen) 04/02/25 04/02/25 04/02/25 Range/Units 16:26 17:13 17:46 WBC (4.8-10.8) K/ul RBC (4.70-6.10) M/uL Hgb (14.0-18.0) g/dl Hct (42.0-52.0) % MCHC (32.0-36.0) g/dL RDW Std Deviation (36.4-46.3) fL RDW Coeff of Martir (11.5-14.5) % MPV (9.4-12.4) fL Neut # (Auto) (1.40-6.50) K/uL Lymph # (Auto) (1.20-3.40) K/uL [place] # (Auto) (0.11-0.59) K/uL PT (9.0-12.0) Seconds INR (0.9-1.1) Sodium 126 L (136-145) mmol/L Potassium 5.9 H (3.5-5.1) mmol/L Chloride 90 L (98-107) mmol/L BUN 113 H (6-23) mg/dl Creatinine 2.71 H D (0.6-1.4) mg/dl BUN/Creatinine Ratio 41.7 H (10-20) Glucose 428 H* (70-99(Fasting)) mg/dl POC Glucose 554 H* (70-99) mg/dl Lactate 4.4 H* (0.4-2.0) mmol/L Calcium (8.6-10.3) mg/dl Magnesium (1.7-2.4) mg/dl Total Bilirubin (0.2-1.0) mg/dl AST (13-39) U/L ALT (7-52) U/L Alkaline Phosphatase (34-104) U/L Ammonia (18-72) umol/L Albumin (3.4-5.0) gm/dl Globulin (2.5-4.0) gm/dl Albumin/Globulin Ratio (0.9-2) Procalcitonin (0-0.5) ng/ml Urine Glucose (UA) (Negative) Urine Ketones (Negative) Urine Nitrite (Negative) Urine Bilirubin (Negative) Urine Urobilinogen (Negative) Ur Leukocyte Esterase (Negative) U Hyaline Cast (Auto) (0-2) /lpf Urine Bacteria (Auto) (None Seen) 11/20/24 Range/Units 18:54 WBC (4.8-10.8) K/ul RBC (4.70-6.10) M/uL Hgb (14.0-18.0) g/dl Hct (42.0-52.0) % MCHC (32.0-36.0) g/dL RDW Std Deviation (36.4-46.3) fL RDW Coeff of Martir (11.5-14.5) % MPV (9.4-12.4) fL Neut # (Auto) (1.40-6.50) K/uL Lymph # (Auto) (1.20-3.40) K/uL [place] # (Auto) (0.11-0.59) K/uL PT (9.0-12.0) Seconds INR (0.9-1.1) Sodium (136-145) mmol/L Potassium (3.5-5.1) mmol/L Chloride (98-107) mmol/L BUN (6-23) mg/dl Creatinine (0.6-1.4) mg/dl BUN/Creatinine Ratio (10-20) Glucose (70-99(Fasting)) mg/dl POC Glucose (70-99) mg/dl Lactate 3.6 H* (0.4-2.0) mmol/L Calcium (8.6-10.3) mg/dl Magnesium (1.7-2.4) mg/dl Total Bilirubin (0.2-1.0) mg/dl AST (13-39) U/L ALT (7-52) U/L Alkaline Phosphatase (34-104) U/L Ammonia (18-72) umol/L Albumin (3.4-5.0) gm/dl Globulin (2.5-4.0) gm/dl Albumin/Globulin Ratio (0.9-2) Procalcitonin (0-0.5) ng/ml Urine Glucose (UA) (Negative) Urine Ketones (Negative) Urine Nitrite (Negative) Urine Bilirubin (Negative) Urine Urobilinogen (Negative) Ur Leukocyte Esterase (Negative) U Hyaline Cast (Auto) (0-2) /lpf Urine Bacteria (Auto) (None Seen) Diagnostic Findings Chest X-Ray 11/20/24 15:19 XR chest 1V portable CLINICAL HISTORY: weakness COMPARISON STUDY: 08/05/2022 FINDINGS: Single view portable chest demonstrates no acute process alive for low lung volumes. No focal airspace opacity or pleural effusion. There is no atelectasis or pneumothorax. The heart and pulmonary vascularity are unremarkable for technique. IMPRESSION: No acute process ACT 112: Negative or not required by law. Electronically signed by: Brooke Eason M.D. 11/20/2024 3:[address] 11/20/24 15:19 Technique: Axial computed tomography images were obtained of the brain from the vertex to the skull base without intravenous contrast. Comparison is made to the prior CT dated 02/26/2020 Findings: There is no sign of intracranial hemorrhage. There is an apparent old infarct of the left basal ganglia and the anterior limb of the left internal capsule, new since the prior study. No clear acute infarct is seen. No midline shift or other form of herniation is identified. There is no hydrocephalus. No obvious mass lesion is seen on this noncontrast examination. There is near complete opacification of the left maxillary sinus due to mucosal thickening and fluid. The mastoid air cells appear clear Impression: 1. 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 Left maxillary sinusitis ACT 112: Positive. There are findings on this exam that require communication between the performing entity and the patient following Patient Test Result Information Act ([place] ACT 112) guidelines. Electronically signed by Demarco Bolton 11-20-2024 5:57 PM Abdomen/Pelvis CT 11/20/24 16:12 Technique: Axial computed tomography images were obtained of the abdomen and pelvis without intravenous contrast. Comparison is made to the prior CT dated 06/09/2020 Findings: The liver is shrunken and nodular in contour, consistent with cirrhosis. No definite liver mass lesion is seen on this noncontrast study. The gallbladder appears unremarkable. No bile duct dilatation is noted. The spleen is of normal size. No focal splenic lesion is evident. The pancreas appears normal with no sign of acute or chronic pancreatitis and no mass lesion noted. The pancreatic duct is of normal caliber. The adrenal glands appear unremarkable. No renal or proximal ureteral calculi are seen. There is no hydronephrosis or perinephric stranding. No definite renal mass lesion is identified. There is right renal cortical scarring The aorta is of normal caliber. No abdominal adenopathy is seen. The stomach appears normal. There is no sign of small bowel obstruction. The colon appears unremarkable. There is no definite sign of appendicitis. No free intraperitoneal air is identified. There is a minimal amount of ascites No distal ureteral or bladder calculi are seen. No obvious bladder mass lesion is evident. The iliac arteries are of normal caliber. No pelvic adenopathy is noted. There are small bilateral inguinal hernias containing only fat The lungs bases appear clear. No fracture is identified. No focal osseous lesion is seen Impression: 1. Cirrhosis, worsened since the prior study 2. Minimal amount of ascites 3. Small bilateral inguinal hernias containing only fat ACT 112: Positive. There are findings on this exam that require communication between the performing entity and the patient following Patient Test Result Information Act ([place] ACT 112) guidelines. Electronically signed by Demarco Bolton 11-20-2024 6:07 PM Medications Administered Discontinued Medications Thiamine HCl 100 mg/ Syringe 10 mls @ 2 mls/min IV NOW STA Stop: 11/20/24 15:22 Last Admin: 11/20/24 15:45 Dose: 2 mls/min Documented By: JANET Folic Acid 1 mg/ Syringe 10 mls @ 5 mls/min IV NOW STA Stop: 11/20/24 15:19 Last Admin: 11/20/24 15:44 Dose: 5 mls/min Documented By: JANET Sodium Chloride (Nss) 500 mls @ 999 mls/hr IV .Q31M ONE Stop: 11/20/24 15:48 Last Infusion: 11/20/24 16:20 Dose: Infused Documented By: Admin: 11/20/24 15:35 Dose: 999 mls/hr Documented By: JANET Famotidine (Pepcid 20mg Iv Push) 20 mg in 5 mls @ 2.5 mls/min IV NOW STA Stop: 11/20/24 15:19 Last Admin: 11/20/24 15:35 Dose: 2.5 mls/min Documented By: JANET Calcium Gluconate () 1,000 mg in 60 mls @ 240 mls/hr IV NOW STA Stop: 11/20/24 16:18 Last Infusion: 11/20/24 16:23 Dose: Infused Documented By: Admin: 11/20/24 16:08 Dose: 240 mls/hr Documented By: DAIJA Sodium Chloride (Nss) 1,000 mls @ 999 mls/hr IV .Q1H1M ONE Stop: 11/20/24 17:34 Last Infusion: 11/20/24 17:41 Dose: Infused Documented By: Admin: 11/20/24 16:37 Dose: 999 mls/hr Documented By: JANET Piperacillin Sod/Tazobactam Sod (Zosyn) 4.5 gm in 100 mls @ 200 mls/hr IV NOW ONE Stop: 11/20/24 17:05 Last Infusion: 11/20/24 18:30 Dose: Infused Documented By: Admin: 11/20/24 17:42 Dose: 200 mls/hr Documented By: VERN Sodium Chloride (Nss) 1,000 mls @ 999 mls/hr IV .Q1H1M ONE Stop: 11/20/24 18:09 Last Infusion: 11/20/24 18:46 Dose: Infused Documented By: Admin: 11/20/24 17:43 Dose: 999 mls/hr Documented By: VERN Insulin Human Regular (Novolin-R Insulin Per Unit Charge) 10 units IV NOW STA Stop: 11/20/24 16:05 Last Admin: 11/20/24 16:09 Dose: 10 units Documented By: DAIJA Co-signed By: JANET Ondansetron HCl (Ondansetron Inj 2 Mg/Ml 2 Ml Vial) 4 mg IV NOW STA Stop: 11/20/24 15:19 Last Admin: 11/20/24 15:35 Dose: 4 mg Documented By: JANET Sodium Bicarbonate (Sodium Bicarb 8.4% Inj 50 Meq/50 Ml Syr) 50 meq IV NOW STA Stop: 11/20/24 16:05 Last Admin: 11/20/24 16:08 Dose: 50 meq Documented By: DAIJA ECG Additional Comments: Normal sinus rhythm OldSeptal infarct(cited on or [id number]) Abnormal ECG When compared with ECG [id number] 19:24, No significant change Confirmed by Charlie Dwyer ([id number]) on 11/20/2024 4:18:58 PM Coding Level of Care Code 71880 INT INP/OBS CARE 2/55MIN Diagnoses Sepsis A41.9 Cirrhosis K74.60 Acute hyperglycemia R73.9 Acute hyponatremia E87.1 Acute hyperkalemia E87.5 Alcohol abuse F10.10 ARF (acute renal failure) N17.9
[2024-11-20 19:05] LABS: Bacteria Urine Automated 1+ (None Seen)
[2024-11-20] MEDS ORDERED: PHARMACY GLYCEMIC MGMT CONSULT PRN ×2 (19:24→20:36)
[2024-11-20] MEDS ORDERED: STAT IV Infusion **Titration per Protocol STA ×2 (19:24→20:36)
[2024-11-20 19:27] LABS: Amphetamines+Metham, Urine Neg (Neg); Barbiturates, Urine Neg (Neg); Benzodiazepine, Urine Neg (Neg); Cocaine, Urine Neg (Neg); Fentanyl, Urine Neg (Neg); MDMA (Ecstacy), Urine Neg (Neg); Marijuana, Urine Neg (Neg); Methadone, Urine Neg (Neg); Opiate, Urine Neg (Neg); Phencyclidine, Urine Neg (Neg)
[2024-11-20] MEDS: DKA GOAL RANGE 150-250 mg/dl ONE (19:37)
[2024-11-20] MEDS: SODIUM CHLORIDE 0.45 % 1,000 ML IV SCH (19:57)
[2024-11-20] MEDS: INSULIN REGULAR 250 UNITS in SODIUM CHLORIDE 0.9% 247.5 ML IV SCH (19:57)
[2024-11-20] MEDS: PENDING 1/2NSS+20mEq KCL IVF SCH (20:03)
[2024-11-20] MEDS: PENDING D5 1/2NS+20mEq KCL IVF SCH (20:03)
[2024-11-20] MEDS: INSULIN ASPART PER UNIT CHARGE SC SCH ×2 (20:04→21:02)
[2024-11-20] MEDS ORDERED: GLUCAGON FOR INJ 1 MG VIAL SQ PRN (20:30)
[2024-11-20] MEDS ORDERED: GLUCOSE 40% GEL 15 GM TUBE PO PRN (20:30)
[2024-11-20] MEDS ORDERED: CARBOHYDRATES FOR HYPOGLYCEMIA PO PRN (20:30)
[2024-11-20] MEDS ORDERED: DEXTROSE 50% 50 ML SYRINGE IV PRN (20:30)
[2024-11-20] MEDS ORDERED: GLUCOSE 10 TAB/TUBE PO PRN (20:30)
[2024-11-20] MEDS ORDERED: INSULIN REGULAR 250 UNITS in SODIUM CHLORIDE 0.9% 247.5 ML IV SCH (20:36)
[2024-11-20] MEDS ORDERED: LORazepam 1 MG TAB PO PRN (20:47)
[2024-11-20] MEDS ORDERED: LORazepam 2 MG/1 ML VIAL IV PRN (20:47)
[2024-11-20] MEDS ORDERED: INSULIN ASPART PER UNIT CHARGE SC SCH ×2 (21:00)
[2024-11-20] MEDS: PLASMA-LYTE A 1,000 ML IV SCH (21:03)
[2024-11-20] MEDS: LANTUS PER UNIT CHARGE SC ONE (21:03)
[2024-11-20] MEDS: DAPTOmycin 500 MG in SYRINGE 0 ML IV SCH (21:04)
[2024-11-20] MEDS: THIAMINE HCL 500 MG in SODIUM CHLORIDE 0.9% 50 ML IV SCH (21:14)
[2024-11-20 21:27] LABS: Base Excess VBG -0.2 mEq/L; HCO3 VBG 25 mmol/L; Oxygen Saturation VBG < 60.0 %; PCO2 VBG 44 mmHg (38-50); PO2 VBG 25 mmHg; pH VBG 7.37 (7.36-7.41)
[2024-11-20 21:47] LABS: BUN Creatinine Ratio 40.6 (10-20); Calcium 9.7 mg/dl (8.6-10.3); Creatinine Clr Calc Pharmacy 29.2 ml/min; Potassium 5.6 mmol/L (3.5-5.1)
[2024-11-20] MEDS ORDERED: ALBUTEROL HFA 8 GM INHALER INH PRN ×2 (21:49→21:52)
[2024-11-20] MEDS: LACTULOSE SYRUP 20 GM/30 ML UDC PO SCH (21:55)
--- NOTE | 2024-11-21 01:07 | Communication Note ---
Date of Service: November 21, 2024 S: Patient with 2 large liquid BMS first was dark black and second was more brown in nature following lactulose. No volodymyr blood noted, but associated with decrease in blood pressure. Patient without tachycardia and mentation is actually improving. He has had no emesis and also feels his abdominal pain is better. O: HR 96, BP 84/47, RR 17 Spo2 97% A/P: Concern with his history of ETOH use, cirrhosis, and abdominal pain for UGI bleed with dark stools- unknown if he has hx of varices or not - Will give protonix 40mg IV now, consider adding octreotide if drop in HGB - Type and screen for PRBC - Check CBC and renal function with next blood draw at 0100- transfuse if applicable - HGB on arrival was 13- - GI consultation in place with his hx of cirrhosis, will add eval for UGIB Tariq CLARK (ACNP-)
[2024-11-21] MEDS: PANTOprazole 40 MG/10 ML SYR IV SCH (01:19)
[2024-11-21 01:45] LABS: Basophils # (auto) 0.01 K/uL (0.00-0.20); Basophils % (auto) 0.1 %; Eosinophils # (auto) 0.05 K/uL (0.00-0.50); Eosinophils % (auto) 0.4 %; Hematocrit (blood only) 31.4 % (42.0-52.0); Hemoglobin 11.4 g/dl (14.0-18.0); Immature Granulocytes # (auto) 0.05 K/uL (0.01-0.20); Immature Granulocytes % (auto) 0.4 %; Lymphocytes # (auto) 0.89 K/uL (1.20-3.40); Lymphocytes % (auto) 6.3 %; Mean Corpuscular Hemoglobin 32.6 pg (25.0-34.0); Mean Corpuscular Hgb Conc 36.3 g/dL (32.0-36.0); Mean Corpuscular Volume 89.7 fL (80.0-100.0); Mean Platelet Volume 12.3 fL (9.4-12.4); Monocytes # (auto) 1.23 K/uL (0.11-0.59); Monocytes % (auto) 8.7 %; Neutrophils # (auto) 11.86 K/uL (1.40-6.50); Neutrophils % (auto) 84.1 %; Platelet Count 106 K/uL (130-400); RDW Coefficient of Variation 15.3 % (11.5-14.5); RDW Standard Deviation 49.8 fL (36.4-46.3); White Blood Count 14.09 K/ul (4.8-10.8)
[2024-11-21 02:02] LABS: Calcium 9.5 mg/dl (8.6-10.3); Creatinine Clr Calc Pharmacy 31.3 ml/min; Potassium 4.5 mmol/L (3.5-5.1)
[2024-11-21] MEDS: ALBUMIN 5% 250 ML IV ONE (02:42)
[2024-11-21] MEDS: PIPERACILLIN/TAZOBACTAM 4.5 GM/100 ML BAG IV SCH (04:49)
--- OUTSIDE RECORDS SUMMARY | 2024-11-21 05:34 | External Medical Summary | Summary of Care ---
Author Name Unknown Organization [facility] Address [address] [place] [address] Phone [phone] Care Team Providers Care Bioinformatics Assistant Name Role Phone Luly Guajardo PA-C Primary Care Provider [phone] [phone] Reason for Visit * Reason Comments eRx-Medication Refill Encounter Details Date Type Department Care Team ([facility] st Contact Info) Description 07/13/2024 Refill [facility] [address] [place] [address] Luly Guajardo PA-C [address] [place] [address] ALCOH DEP [id number]; SOB (shortness of breath); LRTI (lower respiratory tract infection); Alcoholic cirrhosis, unspecified whether ascites present (HCC) Allergies No known active allergiesdocumented as of this encounter (statuses as of 07/15/2024) Medications Aspirin 81 MG Oral Tablet Delayed Release 1 Tablet. 020 Active Latanoprost 0.005 % Ophthalmic Solution (Xalatan) Instill 1 Drop into both eyes every evening. 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 To affected area. 80 g 5 023 Active Additional Information Patient not taking.Reported on 01/26/2024 Gabapentin 400 MG Oral Capsule (Neurontin)Indica tions:Chronic low back pain with sciatica, sciatica laterality unspecified, unspecified back pain laterality TAKE ONE CAPSULE BY MOUTH THREE TIMES A DAY EVERY MORNING, AT NOON, AND BEFORE BEDTIME 90 Capsule 5 023 Active Neomycin-Polymyxi n-HC 3.5-25342-0 Otic SolutionIndicatio ns:Chronic diffuse otitis externa of both ears Instill 4 Drops into both ears in the morning and 4 Drops at noon and 4 Drops before bedtime. To affected ear, for 10 days.. 10 mL 1 024 Active Additional Information Patient not taking.Reported on 01/26/2024 Polyethylene Glycol 3350 17 GM/SCOOP Oral Powder (MiraLax)Indicati ons:Hepatic encephalopathy (HCC) Take 17 g by mouth in the morning. Dissolve one heaping tablespoon in 8 ounces of water or juice.. 510 g 11 024 Active rifAXIMin 550 MG Oral Tablet (Xifaxan)Indicati ons:Hepatic encephalopathy (HCC) Take 1 Tablet by mouth in the morning and 1 Tablet before bedtime. 60 Tablet 4 024 Active Lisinopril 20 MG Oral Tablet (Prinivil)Indicat ions:HTN, goal below 140/90 TAKE 1 TABLET BY MOUTH EVERY MORNING 90 Tablet 3 024 Active hydrOXYzine HCl 50 MG Oral TabletIndications :Itching TAKE 1/2 TO 1 TABLET BY MOUTH EVERY 6 HOURS NEEDED FOR ITCHING 40 Tablet 2 024 Active Ventolin HFA 108 (90 Base) MCG/ACT Inhalation Aerosol SolutionIndicatio ns:Chronic alcohol dependence, continuous (HCC),SOB (shortness of breath),LRTI (lower respiratory tract infection),Alcoho lic cirrhosis, unspecified whether ascites present (HCC) inhale 2 puffs by mouth every 4 hours if needed for wheezing or dyspnea 54 g 1 024 Active Ventolin HFA 108 (90 Base) MCG/ACT Inhalation Aerosol SolutionIndicatio ns:Chronic alcohol dependence, continuous (HCC),SOB (shortness of breath),LRTI (lower respiratory tract infection),Alcoho lic cirrhosis, unspecified whether ascites present (HCC) Inhale 2 Puffs by mouth every 4 hours as needed for Wheezing or Dyspnea. 54 g 1 024 2023 Discontinued documented as of this encounter (statuses as of 07/15/2024) Active Problems Problem Noted Date Diagnosed Date Alcoholic cirrhosis of liver without ascites 05/2023 Legally blind 10/28/2022 Obesity, Class II, BMI 35-39.9, isolated (see ac tual BMI) 10/28/2022 History of anoxic brain injury 10/28/2022 Thrombocytopenia 02/09/2022 HTN, goal below 130/80 05/18/2017 documented as of this encounter (statuses as of 07/15/2024) Resolved Problems Problem Noted Date Diagnosed Date Resolved Date Anoxic brain damage, not elsewhere classified 02/10/2010/28/2022 Fatty (change of) liver, not elsewhere classified 02/09/2022 10/28/2022 Bilateral hearing loss 05/18/201710/28 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 10/28/2022 Alcohol related seizure 05/18/201703/21 Left foot pain 05/10/2016 04/08/2019 ALCOH DEP [id number] 11/21/200305/2023 Spasm of muscle 11/21/2003 04/08/2019 SPRAIN LUMBOSACRAL 11/21/2003 9 documented as of this encounter (statuses as of 07/15/2024) Immunizations Name Administration Dates Next Due HEP A - Hepatitis A (Adult > 18 yrs) 12/26/2017, 06/30/2017 Hepatitis B, 20+ yrs 12/26/2017,07/31/2017,06/30 Seasonal Influenza Vac., MDV , IM, 0.5 mL (Fluzone) 08/01/2007 Seasonal Influenza Virus Vac cine, Unspecified Formulation 08/01/2007 TDAP (age 10 and older)(Boostrix) 05/09/2020, documented as of this encounter Social History Tobacco Use Types Packs/Day Years Used Date Smoking Tobacco: Never Passive Smoke Exposure: Current Smokeless Tobacco: Current Chew Alcohol Use Standard Drinks/Week Comments Yes 0 (1 standard drink = 0.6 oz pur e alcohol) drinks at least 15 beers daily PHQ-2 Answer Date Recorded PHQ-2 Score 0 04/08/2019 Sex and Gender Information Value Date Recorded Sex Assigned at Male 10/17/2019 1:12 PM EST Legal Sex Male 7:13 AM EST Gender Identity Male 10/17/2019 1:12 PM EST Sexual Orientation Straight 10/17/2019 1: 12 PM EST documented as of this encounter Miscellaneous Notes * Telephone Encounter - Yonas Tellez [facility] - 07/15/2024 11:53 AM EST Signed Prescriptions: Disp Refills Ventolin HFA 108 (90 Base) MCG/ACT Inhalat*54 g 1 Sig: inhale 2 puffs by mouth every 4 hours if needed for wheezing or dyspnea Authorizing Provider: LULY GUAJARDO User: YONAS TELLEZ * Telephone Encounter - Interface, E-Rx Ss Inbound - 07/15/2024 10:38 AM EST Pending Prescriptions: Disp Refills Ventolin HFA 108 (90 Base) MCG/ACT Inhalat*54 g 0 Sig: inhale 2puffs by mouth every 4 hours if needed for wheezing or dyspnea documented in this encounter Plan of Treatment Upcoming Encounters Date Type Department Care Team (Late st Contact Info) Description 07/30/2024 3:00 PM EST Office Visit [facility], [facility] [address] [place] [address] Jonn Chester DO [address] [place] [phone] 11/28/2024 10:00 AM EDT Office Visit [facility], [address] [place] [address] Luly Guajardo PA-C [address] [place] [address] Scheduled Procedures Name Priority Associated Diagnoses Date/Ti me COLONOSCOPY FLEXIBLE PROXIMAL DIAGNOSTIC Recall Colon cancer screening Health Maintenance Due Date Last Done Comments Pneumococcal Vaccine: Pediatrics (0 to 5 Years) and At-Risk Patients (6 to 64 Years) (1 of 2 - PCV) 1970 Cologuard 2009 Fecal Occult Blood Test 2009 Sigmoidoscopy 2009 Depression Screening 04/08/2020 04/08/2019 COVID-19 Vaccine ( season) 2024 Influenza Vaccine (FLU shot) (#1) 2024 08/01/2007, 08/01/2007 GFR 01/25/2025 01/26/2024, 10/19, 08/05/2022, Additional history exists Colonoscopy 08/31/2025 08/31/2015, 08/31/2015 Colorectal Cancer Screening 08/31/2025 Albumin/Creatinine Ratio 01/25/2027 01/26/2024, 10/19 Diabetes Screening 01/25/2027 01/26/2024, 0 10/28/2022, 08/05/2022, Additional history exists Lipid Panel 01/25/2029 01/26/2024, 10/19, 10/24/2017, Additional history exists DTap/Tdap Vaccines (3 - Td or Tdap) 05/09/2030 05/09/2020, 01/09/2018 Hepatitis B Vaccine Completed 12/26/2017, 07/31/2017, 06/30/2017 HPV (Gardasil) Vaccine Aged Out No lo nger eligible based on patient's age to complete this topic MENINGOCOCCAL (MENACTRA/MENVEO) Aged Out No longer eligible based on patient's age to complete this topic Zoster Vaccines Discontinued documented as of this encounter Medical Devices Not on filedocumented as of this encounter Visit Diagnoses Diagnosis ALCOH DEP [id number] Other and unspecified alcohol dependence, continuous drinking behavior SOB (shortness of breath) Shortness of breath LRTI (lower respiratory tract infection) Other diseases of respiratory system, not elsewhere classified Alcoholic cirrhosis, unspecified whether ascites present (HCC) documented in this encounter Care Teams Bioinformatics Assistant Relationship Specialty Start Date End Date Luly Guajardo PA-C [address] [facility] [place] [address] PCP - General Physician 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
--- OUTSIDE RECORDS SUMMARY | 2024-11-21 05:34 | External Medical Summary | Summary of Care ---
Author Name Unknown Organization [facility] Address [address] [place] [address] Phone [phone] Care Team Providers Care Dip Filler Name Role Phone Luly Guajardo PA-C Primary Care Provider [phone] Reason for Visit * Reason Onset Date Comments Advice 06/07/2024 Ventolin Inhalor Encounter Details Date Type Department Care Team ([facility] st Contact Info) Description 06/07/2024 Telephone [facility] [address] [place] [address] Luly Guajardo PA-C [address] [place] [address] Advice (Ventolin Inhalor) Allergies No known active allergiesdocumented as of this encounter (statuses as of 06/07/2024) Medications Medication Sig Dispensed Refills Start Date End Date Status Aspirin 81 MG Oral Tablet Delayed Release 1 Tablet. 02/29/2020 Active Latanoprost 0.005 % Ophthalmic Solution (Xalatan) Instill 1 Drop into both eyes every evening. 2.5 mL 11 09/22/2022 Active Triamcinolone Acetonide 0.1 % External Cream (Aristocort)Indicati ons:Radio Frequency Technician's nodule Apply topically to affected area 3 times a day. To affected area. 80 g 5 10/28/2022 Active Additional Information Patient not taking.Reported on 01/26/2024 Gabapentin 400 MG Oral Capsule (Neurontin)Indicatio ns:Chronic low back pain with sciatica, sciatica laterality unspecified, unspecified back pain laterality TAKE ONE CAPSULE BY MOUTH THREE TIMES A DAY EVERY MORNING, AT NOON, AND BEFORE BEDTIME 90 Capsule 5 01/30/2023 Active Ventolin HFA 108 (90 Base) MCG/ACT Inhalation Aerosol SolutionIndications: Chronic alcohol dependence, continuous (HCC),SOB (shortness of breath),LRTI (lower respiratory tract infection),Alcoholic cirrhosis, unspecified whether ascites present (HCC) Inhale 2 Puffs by mouth every 4 hours as needed for Wheezing or Dyspnea. 54 g 1 11/02/2023 Active Docfctyd-Mwwocnnyr-P C 3.5-30365-1 Otic SolutionIndications: Chronic diffuse otitis externa of both ears Instill 4 Drops into both ears in the morning and 4 Drops at noon and 4 Drops before bedtime. To affected ear, for 10 days.. 10 mL 1 11/28/2023 Active Additional Information Patient not taking.Reported on 01/26/2024 Polyethylene Glycol 3350 17 GM/SCOOP Oral Powder (MiraLax)Indications :Hepatic encephalopathy (HCC) Take 17 g by mouth in the morning. Dissolve one heaping tablespoon in 8 ounces of water or juice.. 510 g 11 01/29/2024 Active rifAXIMin 550 MG Oral Tablet (Xifaxan)Indications :Hepatic encephalopathy (HCC) Take 1 Tablet by mouth in the morning and 1 Tablet before bedtime. 60 Tablet 4 02/01/2024 Active Lisinopril 20 MG Oral Tablet (Prinivil)Indication s:HTN, goal below 140/90 TAKE 1 TABLET BY MOUTH EVERY MORNING 90 Tablet 3 02/08/2024 Active hydrOXYzine HCl 50 MG Oral TabletIndications:It saw TAKE 1/2 TO 1 TABLET BY MOUTH EVERY 6 HOURS NEEDED FOR ITCHING 40 Tablet 2 04/25/2024 Active documented as of this encounter (statuses as of 06/07/2024) Active Problems Problem Noted Date Diagnosed Date Alcoholic cirrhosis of liver without ascites 05/2023 Legally blind 10/28/2022 Obesity, Class II, BMI 35-39.9, isolated (see ac tual BMI) 10/28/2022 History of anoxic brain injury 10/28/2022 Thrombocytopenia 02/09/2022 HTN, goal below 130/80 05/18/2017 documented as of this encounter (statuses as of 06/07/2024) Resolved Problems Problem Noted Date Diagnosed Date Resolved Date Anoxic brain damage, not elsewhere classified 02/10/2010/28/2022 Fatty (change of) liver, not elsewhere classified 02/09/2022 10/28/2022 Bilateral hearing loss 05/18/201710/28 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 10/28/2022 Alcohol related seizure 05/18/201703/21 Left foot pain 05/10/2016 04/08/2019 ALCOH DEP [id number] 11/21/200305/2023 Spasm of muscle 11/21/2003 04/08/2019 SPRAIN LUMBOSACRAL 11/21/2003 9 documented as of this encounter (statuses as of 06/07/2024) Immunizations Name Administration Dates Next Due HEP [...] Answer Date Recorded PHQ-2 Score 0 04/08/2019 Utilities Answer Date Recorded Do you have trouble paying y our heating, water, or electric bill? (Adult - for ages 18 years and over) Not on file 02/06/2024 Is your family able to pay t he heat, water, or electric bill? (Household - for ages 0-17 years) Not on file 02/06/2024 Does your family have access to good internet? (Household - for ages 0-17 years) Not on file 02/06/2024 Social Connections Answer Date Recorded How often do you feel lonely or isolated from those around you? (Adult - for ages 18 years and over) Not on file 02/06/2024 Sex and Gender Information Value Date Recorded Sex Assigned at Male 10/17/2019 1:12 PM EST Gender Identity Male 10/17/2019 1:12 PM EST Sexual Orientation Straight 10/17/2019 1: 12 PM EST Job Start Date Occupation Industry Not on file Not on file Not on file documented as of this encounter Miscellaneous Notes * Telephone Encounter - Luly Guajardo PA-C - 06/07/2024 1:40 PM EDT noted Luly Guajardo PA-C * Telephone Encounter - Kolton Peter OSA - 06/07/2024 8:55 AM EDT [place] with [employer] plan states the patient has filled their ventolin inhaler six times this past year and may benefit from a control inhaler. If they have any questions, please reach out Purnima. documented in this encounter Plan of Treatment Upcoming Encounters Date Type Department Care Team (Late st Contact Info) Description 07/30/2024 3:00 PM EST Office Visit [facility], [facility] [address] [place] [address] Jonn Chester, [address] [place] [address] 11/28/2024 10:00 AM EDT Office Visit [facility] [address] [place] [phone] Luly Guajardo PA-C [address] [place] [address] Scheduled Procedures Name Priority Associated Diagnoses Date/Ti me COLONOSCOPY FLEXIBLE PROXIMAL DIAGNOSTIC Recall Colon cancer screening Health Maintenance Due Date Last Done Comments Pneumococcal Vaccine: Pediatrics (0 to 5 Years) and At-Risk Patients (6 to 64 Years) (1 of 2 - PCV) 1970 Cologuard 2009 Fecal Occult Blood Test 2009 Sigmoidoscopy 2009 Depression Screening 04/08/2020 04/08/2019 COVID-19 Vaccine (1 - season) 2024 Influenza Vaccine (FLU shot) (#1) [...] Not on filedocumented as of this encounter Care Teams Dip Filler Relationship Specialty Start Date End Date Luly Guajardo PA-C [address] [facility] [place] [address] PCP - General Physician Assistant Producer 09/19/18 documented as of this encounter
--- OUTSIDE RECORDS SUMMARY | 2024-11-21 05:34 | External Medical Summary | Summary of Care ---
Author Name Unknown Organization [facility] Address [address] [facility] [address] Phone [phone] Care Team Providers Care Risk Compliance Manager Name Role Phone Luly Guajardo PA-C Primary Care Provider [phone] Reason for Visit * Reason Comments eRx-Medication Refill Encounter Details Date Type Department Care Team (Late st Contact Info) Description 10/19/2024 Refill [facility] [address] [facility] [place] [address] Luly Guajardo PA-C [address] [facility], [place] [id number] Itching Allergies No known active allergiesdocumented as of this encounter (statuses as of 10/21/2024) Medications Aspirin 81 MG Oral Tablet Delayed Release 1 Tablet. 020 Active Latanoprost 0.005 % Ophthalmic Solution (Xalatan) Instill 1 Drop into both eyes every evening. 2.5 mL 11 023 Active Triamcinolone Acetonide 0.1 % External Cream (Aristocort)Indic ations:Superintendent Of Schools's nodule Apply topically to affected area 3 [...] 90 Capsule 5 023 Active Neomycin-Polymyxi n-HC 3.5-62063-9 Otic SolutionIndicatio ns:Chronic diffuse otitis externa of [...] EVERY MORNING 90 Tablet 3 024 Active Ventolin HFA 108 (90 Base) MCG/ACT Inhalation Aerosol SolutionIndicatio ns:Chronic alcohol dependence, continuous (HCC),SOB (shortness of breath),LRTI (lower respiratory tract infection),Alcoho lic cirrhosis, unspecified whether ascites present (HCC) inhale 2 puffs by mouth every 4 hours if needed for wheezing or dyspnea 54 g 1 024 Active hydrOXYzine HCl 50 MG Oral TabletIndications :Itching TAKE 1/2 TO 1 TABLET BY MOUTH EVERY 6 HOURS NEEDED FOR ITCHING 40 Tablet 2 025 Active hydrOXYzine HCl 50 MG Oral TabletIndications :Itching TAKE 1/2 TO 1 TABLET BY MOUTH EVERY 6 HOURS NEEDED FOR ITCHING 40 Tablet 2 025 2024 Discontinued documented as of this encounter (statuses as of 10/21/2024) Active Problems Problem Noted Date Diagnosed Date Alcoholic cirrhosis of liver without ascites 05/2023 Legally blind 10/28/2022 Obesity, Class II, BMI 35-39.9, isolated (see ac tual BMI) 10/28/2022 History of anoxic brain injury 10/28/2022 Thrombocytopenia 02/09/2022 HTN, goal below 130/80 05/18/2017 documented as of this encounter (statuses as of 10/21/2024) Resolved Problems Problem Noted Date Diagnosed Date Resolved Date Anoxic brain damage, not elsewhere classified 02/10/2010/28/2022 Fatty (change of) liver, not elsewhere classified 02/09/2022 10/28/2022 Bilateral hearing loss 05/18/201710/28 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 10/28/2022 Alcohol related seizure 05/18/201703/21 Left foot pain 05/10/2016 04/08/2019 ALCOH DEP [id number] 11/21/200305/2023 Spasm of muscle 11/21/2003 04/08/2019 SPRAIN LUMBOSACRAL 11/21/2003 9 documented as of this encounter (statuses as of 10/21/2024) Immunizations Name Administration Dates Next Due HEP [...] encounter Miscellaneous Notes * Telephone Encounter - Jonathan Celeste, [facility] - 10/21/2024 11:37 AM ESTSigned Prescriptions: Disp Refills hydrOXYzine HCl 50 MG Oral Tablet 40 Tab*2 Sig: TAKE 1/2 TO 1 TABLET BY MOUTH EVERY 6 HOURS NEEDED FOR ITCHINGAuthorizing Provider: LULY GUAJARDO User: JONATHAN CELESTE * Telephone Encounter - Interface, E-Rx Ss Inbound - 10/21/2024 6:06 AM EST Pending Prescriptions: Disp Refills hydrOXYzine HCl 50 MG Oral Tablet [Pharmac*40 Tab*0 Sig: TAKE 1/2 TO 1 TABLET BY MOUTH EVERY 6 HOURS NEEDED FOR ITCHING documented in this encounter Plan of Treatment Upcoming Encounters Date Type Department Care Team (Latest Contact Info) Description 11/08/2024 9:40 AM EDT Hospital Encounter OR [facility], Operating Room [facility] [address] [place] [phone] Jonn Chester DO [address] [place] [address] 11/08/2024 9:40 AM EDT - 11/08/2024 10:05 AM EDT Surgery OR [facility], Operating Room [facility] [address] [place] [phone] Jonn Chester, DO [address] [place] [phone] INJECTION SPINE LUMBAR OR SACRAL 11/28/2024 10:00 AM EDT Office Visit [facility] [address] [facility] [address] [place] [phone] Luly Guajardo PA-C [address] [facility] [address] [place] [address] Scheduled Procedures Name Priority Associated Diagnoses Date/Ti me INJECTION SPINE LUMBAR OR SACRAL Lumbar radiculopathy 11/08/2024 9:40 AM EDT COLONOSCOPY FLEXIBLE PROXIMAL DIAGNOSTIC Recall Colon cancer screening Health Maintenance Due Date Last Done Comments Pneumococcal Vaccine: 50+ Years (1 of 2 - PCV) 1983 Cologuard 2009 Fecal Occult Blood Test 2009 [...] on patient's age to complete this topic Meningitis B Vaccine (Bexsero/Trumemba) Aged Out No longer eligible based on patient's age to complete this topic Zoster Vaccines Discontinued documented as of this encounter Medical Devices Not on filedocumented as of this encounter Visit Diagnoses Diagnosis Itching Unspecified pruritic disorder Lumbar radiculopathy Thoracic or lumbosacral neuritis or radiculitis, unspecified documented in this encounter Care Teams Risk Compliance Manager Relationship Specialty Start Date End Date Luly Guajardo PA-C PCP - General Physician Black And White Printer Operator 09/19/18 documented as of this encounter
--- OUTSIDE RECORDS SUMMARY | 2024-11-21 05:34 | External Medical Summary | Summary of Care ---
Author Name Unknown Organization [facility] Address [address] [place] [address] Phone [phone] Care Team Providers Care Oil Field Equipment Mechanic Name Role Phone Luly Guajardo PA-C Primary Care Provider [phone] [phone] Reason for Visit * Reason Comments eRx-Medication Refill Encounter Details Date Type Department Care Team (Late st Contact Info) Description 06/14/2024 Refill [facility] [address] [place] [address] Luly Guajardo PA-C [address] [place] [address] Itching Allergies No known active allergiesdocumented as of this encounter (statuses as of 06/15/2024) Medications Medication Sig Dispensed Refills Start Date End Date Status Aspirin 81 MG Oral Tablet Delayed Release 1 Tablet. 0 Active Latanoprost 0.005 % Ophthalmic Solution (Xalatan) Instill 1 Drop into both eyes every evening. 2.5 mL 11 3 Active Triamcinolone Acetonide 0.1 % External Cream (Aristocort)Indicat ions:Home Economics Teacher's nodule Apply topically to affected area 3 times a day. To affected area. 80 g 5 3 Active Additional Information Patient not taking.Reported on 01/26/2024 Gabapentin 400 MG Oral Capsule (Neurontin)Indicati ons:Chronic low back pain with sciatica, sciatica laterality unspecified, unspecified back pain laterality TAKE ONE CAPSULE BY MOUTH THREE TIMES A DAY EVERY MORNING, AT NOON, AND BEFORE BEDTIME 90 Capsule 5 3 Active Ventolin HFA 108 (90 Base) MCG/ACT Inhalation Aerosol SolutionIndications :Chronic alcohol dependence, continuous (HCC),SOB (shortness of breath),LRTI (lower respiratory tract infection),Alcoholi c cirrhosis, unspecified whether ascites present (HCC) Inhale 2 Puffs by mouth every 4 hours as needed for Wheezing or Dyspnea. 54 g 1 4 Active Neomycin-Polymyxin- HC 3.5-00502-0 Otic SolutionIndications :Chronic diffuse otitis externa of both ears Instill 4 Drops into both ears in the morning and 4 Drops at noon and 4 Drops before bedtime. To affected ear, for 10 days.. 10 mL 1 4 Active Additional Information Patient not taking.Reported on 01/26/2024 Polyethylene Glycol 3350 17 GM/SCOOP Oral Powder (MiraLax)Indication s:Hepatic encephalopathy (HCC) Take 17 g by mouth in the morning. Dissolve one heaping tablespoon in 8 ounces of water or juice.. 510 g 11 4 Active rifAXIMin 550 MG Oral Tablet (Xifaxan)Indication s:Hepatic encephalopathy (HCC) Take 1 Tablet by mouth in the morning and 1 Tablet before bedtime. 60 Tablet 4 4 Active Lisinopril 20 MG Oral Tablet (Prinivil)Indicatio ns:HTN, goal below 140/90 TAKE 1 TABLET BY MOUTH EVERY MORNING 90 Tablet 3 4 Active hydrOXYzine HCl 50 MG Oral TabletIndications:I tching TAKE 1/2 TO 1 TABLET BY MOUTH EVERY 6 HOURS NEEDED FOR ITCHING 40 Tablet 2 4 Active hydrOXYzine HCl 50 MG Oral TabletIndications:I tching TAKE 1/2 TO 1 TABLET BY MOUTH EVERY 6 HOURS NEEDED FOR ITCHING 40 Tablet 2 4 06/15/20 24 Discontinued documented as of this encounter (statuses as of 06/15/2024) Active Problems Problem Noted Date Diagnosed Date Alcoholic cirrhosis of liver without ascites 05/2023 Legally blind 10/28/2022 Obesity, Class II, BMI 35-39.9, isolated (see ac tual BMI) 10/28/2022 History of anoxic brain injury 10/28/2022 Thrombocytopenia 02/09/2022 HTN, goal below 130/80 05/18/2017 documented as of this encounter (statuses as of 06/15/2024) Resolved Problems Problem Noted Date Diagnosed Date Resolved Date Anoxic brain damage, not elsewhere classified 02/10/2010/28/2022 Fatty (change of) liver, not elsewhere classified 02/09/2022 10/28/2022 Bilateral hearing loss 05/18/201710/28 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 10/28/2022 Alcohol related seizure 05/18/201703/21 Left foot pain 05/10/2016 04/08/2019 ALCOH DEP [id number] 11/21/200305/2023 Spasm of muscle 11/21/2003 04/08/2019 SPRAIN LUMBOSACRAL 11/21/2003 9 documented as of this encounter (statuses as of 06/15/2024) Immunizations Name Administration Dates Next Due HEP [...] Telephone Encounter - Luly Guajardo PA-C - 06/15/2024 6:27 PM EDTSigned Prescriptions: Disp Refills hydrOXYzine HCl 50 MG Oral Tablet 40 Tab*2 Sig: TAKE 1/2 TO 1 TABLET BY MOUTH EVERY 6 HOURS NEEDED FOR ITCHING Authorizing Provider: LULY GUAJARDO * Telephone Encounter - Reji Orona [facility] - 06/15/2024 11:12 AM EDT Pending Prescriptions: Disp Refills hydrOXYzine HCl 50 MG Oral Tablet 40 Tab*2 Sig: TAKE 1/2 TO 1 TABLET BY MOUTH EVERY 6 HOURS NEEDED FOR ITCHING * Telephone Encounter - Reji Orona [facility] - 06/15/2024 11:11 AM EDT Did you pend patient's preferred pharmacy and medication before forwarding?yes Pharmacy: [id number] Pending Prescriptions: Disp Refills hydrOXYzine HCl 50 MG Oral Tablet [Pharma*40 Tab*2 Sig: TAKE 1/2 TO 1 TABLET BY MOUTH EVERY 6 HOURS NEEDED FOR ITCHING Last Visit: 11/28/2023 (in office), Visit date not found (telemedicine) Next Visit: 11/28/2024 If no future appointments scheduled, and last appointment is greater than a year ago, please schedule patient for a follow-up appointment Last date the medication was ordered: 04/25/24 Is this request for a controlled substance?No Urine Drug Screen:No results found for this or any previous visit. Patient Phone Numbers Labs: Lab Results Component Value Date/Time CREAT 1.2 01/26/2024 08:45 AM CREAT 1.57 (A) 08/05/2022 12:00 AM CREAT 1.2 06/15/2020 12:02 PM POTASSIUM 4.5 01/26/2024 08:45 AM POTASSIUM 3.9 08/05/2022 12:00 AM POTASSIUM 4.8 06/15/2020 12:02 PM TSH 2.62 01/26/2024 08:45 AM LDL 91 01/26/2024 08:45 AM LDL 71 10/28/2022 09:04 AM LDL 119 10/24/2017 08:06 AM LDL NOT APPLICABLE 10/24/2017 08:06 AM ALT 29 01/26/2024 08:45 AM ALT 18 05/14/2019 11:57 AM HGBA1C 5.5 01/26/2022 07:55 AM documented in this encounter Plan of Treatment Upcoming Encounters Date Type Department Care Team (Late st Contact Info) Description 07/30/2024 3:00 PM EST Office Visit [facility], [facility] [address] [place] [address] Jonn Chester DO [address] [place] [phone] 11/28/2024 10:00 AM EDT Office Visit [facility] [address] [place] [address] Luly Guajardo PA-C [address] [place] [address] Scheduled Procedures Name Priority Associated Diagnoses Date/Ti [...] Visit Diagnoses Diagnosis Itching Unspecified pruritic disorder documented in this encounter Care Teams Oil Field Equipment Mechanic Relationship Specialty Start Date End Date Luly Guajardo PA-C [address] [place] [address] PCP - General Physician Manager Policy 09/19/18 documented as of this encounter
--- OUTSIDE RECORDS SUMMARY | 2024-11-21 05:34 | External Medical Summary | Summary of Care ---
Author Name Unknown Organization [facility] Address [address] [place] [place] [address] Phone [phone] Care Team Providers Care Tax Accounting Manager Name Role Phone Luly Guajardo PA-C Primary Care Provider [phone] Encounter Details Date Type Department Care Team (Late st Contact Info) Description 09/09/2024 Population Health External Data Unspecified Department Allergies No known active allergiesdocumented as of this encounter (statuses as of 09/09/2024) Medications Aspirin 81 MG Oral Tablet Delayed Release 1 Tablet. 02/29/20 20 Active Latanoprost 0.005 % Ophthalmic Solution (Xalatan) Instill 1 Drop into both eyes every evening. 2.5 mL 11 09/22/19 23 Active Triamcinolone Acetonide 0.1 % External Cream (Aristocort)Indica tions:Perinatal Breastfeeding Assistant's nodule Apply topically to affected area 3 times a day. To affected area. 80 g 5 10/29/19 23 Active Additional Information Patient not taking.Reported on 01/26/2024 Gabapentin 400 MG Oral Capsule (Neurontin)Indicat ions:Chronic low back pain with sciatica, sciatica laterality unspecified, unspecified back pain laterality TAKE ONE CAPSULE BY MOUTH THREE TIMES A DAY EVERY MORNING, AT NOON, AND BEFORE BEDTIME 90 Capsule 5 01/31/20 23 Active Neomycin-Polymyxin -HC 3.5-57554-2 Otic SolutionIndication s:Chronic diffuse otitis externa of both ears Instill 4 Drops into both ears in the morning and 4 Drops at noon and 4 Drops before bedtime. To affected ear, for 10 days.. 10 mL 1 11/28/19 24 Active Additional Information Patient not taking.Reported on 01/26/2024 Polyethylene Glycol 3350 17 GM/SCOOP Oral Powder (MiraLax)Indicatio ns:Hepatic encephalopathy (HCC) Take 17 g by mouth in the morning. Dissolve one heaping tablespoon in 8 ounces of water or juice.. 510 g 11 01/29/20 24 Active rifAXIMin 550 MG Oral Tablet (Xifaxan)Indicatio ns:Hepatic encephalopathy (HCC) Take 1 Tablet by mouth in the morning and 1 Tablet before bedtime. 60 Tablet 4 02/01/20 24 Active Lisinopril 20 MG Oral Tablet (Prinivil)Indicati ons:HTN, goal below 140/90 TAKE 1 TABLET BY MOUTH EVERY MORNING 90 Tablet 3 02/08/20 24 Active hydrOXYzine HCl 50 MG Oral TabletIndications: Itching TAKE 1/2 TO 1 TABLET BY MOUTH EVERY 6 HOURS NEEDED FOR ITCHING 40 Tablet 2 06/15/20 24 Active Ventolin HFA 108 (90 Base) MCG/ACT Inhalation Aerosol SolutionIndication s:Chronic alcohol dependence, continuous (HCC),SOB (shortness of breath),LRTI (lower respiratory tract infection),Alcohol ic cirrhosis, unspecified whether ascites present (HCC) inhale 2 puffs by mouth every 4 hours if needed for wheezing or dyspnea 54 g 1 07/15/20 24 Active documented as of this encounter (statuses as of 09/09/2024) Active Problems Problem Noted Date Diagnosed Date Alcoholic cirrhosis of liver without ascites 05/2023 Legally blind 10/28/2022 Obesity, Class II, BMI 35-39.9, isolated (see ac tual BMI) 10/28/2022 History of anoxic brain injury 10/28/2022 Thrombocytopenia 02/09/2022 HTN, goal below 130/80 05/18/2017 documented as of this encounter (statuses as of 09/09/2024) Resolved Problems Problem Noted Date Diagnosed Date Resolved Date Anoxic brain damage, not elsewhere classified 02/10/2010/28/2022 Fatty (change of) liver, not elsewhere classified 02/09/2022 10/28/2022 Bilateral hearing loss 05/18/201710/28 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 10/28/2022 Alcohol related seizure 05/18/201703/21 Left foot pain 05/10/2016 04/08/2019 ALCOH DEP [id number] 11/21/200305/2023 Spasm of muscle 11/21/2003 04/08/2019 SPRAIN LUMBOSACRAL 11/21/2003 9 documented as of this encounter (statuses as of 09/09/2024) Immunizations Name Administration Dates Next Due HEP [...] PM EST documented as of this encounter Plan of Treatment Upcoming Encounters Date Type Department Care Team (Latest Contact Info) Description 11/08/2024 9:40 AM EDT Hospital Encounter OR [facility], Operating Room [facility] [address] [place] [address] Jonn Chester DO [address] [place] [phone] 11/08/2024 9:40 AM EDT - 11/08/2024 10:05 AM EDT Surgery OR [facility], Operating Room [facility] [address] [place] [phone] Jonn Chester, [address] [place] [phone] INJECTION SPINE LUMBAR OR SACRAL 11/28/2024 10:00 AM EDT Office Visit [facility] [address] [facility] [address] [place] [address] Luly Guajardo PA-C [address] [place] [address] Scheduled Procedures Name Priority Associated Diagnoses Date/Ti me INJECTION SPINE LUMBAR OR SACRAL Lumbar radiculopathy 11/08/2024 9:40 AM EDT COLONOSCOPY FLEXIBLE PROXIMAL DIAGNOSTIC Recall Colon cancer screening Health Maintenance Due Date Last Done Comments Pneumococcal Vaccine: 50+ Years (1 of 2 - PCV) 1983 Pneumococcal Vaccine: Pediatrics (0 to 5 Years) and At-Risk Patients (6 to 18 Years and 19+ Years) (1 of 2 - PCV) 1983 Cologuard [...] filedocumented as of this encounter Care Teams Tax Accounting Manager Relationship Specialty Start Date End Date Luly Guajardo PA-C PCP - General Physician Computational Chemist 09/19/18 documented as of this encounter
--- OUTSIDE RECORDS SUMMARY | 2024-11-21 05:34 | External Medical Summary | Summary of Care ---
Author Name Unknown Organization [facility] Address [address] [place] [facility] [place] [address] Phone [phone] Care Team Providers Care Hoop Cutter Name Role Phone Luly Guajardo PA-C Primary Care Provider [phone] Reason for Referral * Precert (Within 10 days (routine)) - Authorized Specialty Diagnoses / Procedures Referred By Contac t Referred To Contact Pain Medicine Diagnoses Thrombocytopenia (HCC) Lumbar radicular pain Procedures INJECT DX/THER SUBSTANCE INTERLAMINAR LUMBAR/SACRAL W IMAGE GUIDE Jonn Chester DO [address] [place] [address] Phone: tel: fax: Referral ID Status Reason Start Date Expiration Date V isits Requested Visits Authorized [id number] Authorized 07/31/2024 999 999 Reason for Visit * Reason Comments Back Pain Encounter Details Date Type Department Care Team (Latest Contact Info) Description 07/30/2024 3:00 PM EST Office Visit [facility], [facility] [address] [place] [address] Jonn Chester DO [address] [place] [address] Thrombocytopenia (HCC)*; Lumbar radicular pain Allergies No known active allergiesdocumented as of this encounter (statuses as of 07/30/2024) Medications Aspirin 81 MG Oral Tablet Delayed Release 1 Tablet. 02/29/20 Active Latanoprost 0.005 % Ophthalmic Solution (Xalatan) Instill 1 Drop into both eyes every evening. 2.5 mL 11 09/22/19 23 Active Triamcinolone Acetonide 0.1 % External Cream (Aristocort)Indica tions:Manager Regional's nodule Apply topically to affected area 3 [...] Capsule 5 01/31/20 23 Active Neomycin-Polymyxin -HC 3.5-37668-2 Otic SolutionIndication s:Chronic diffuse otitis externa of [...] as of this encounter (statuses as of 07/30/2024) Active Problems Problem Noted Date Diagnosed Date Alcoholic cirrhosis of liver without ascites 05/2023 Legally blind 10/28/2022 Obesity, Class II, BMI 35-39.9, isolated (see ac tual BMI) 10/28/2022 History of anoxic brain injury 10/28/2022 Thrombocytopenia 02/09/2022 HTN, goal below 130/80 05/18/2017 documented as of this encounter (statuses as of 07/30/2024) Resolved Problems Problem Noted Date Diagnosed Date Resolved Date Anoxic brain damage, not elsewhere classified 02/10/2010/28/2022 Fatty (change of) liver, not elsewhere classified 02/09/2022 10/28/2022 Bilateral hearing loss 05/18/201710/28 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 10/28/2022 Alcohol related seizure 05/18/201703/21 Left foot pain 05/10/2016 04/08/2019 ALCOH DEP [id number] 11/21/200305/2023 Spasm of muscle 11/21/2003 04/08/2019 SPRAIN LUMBOSACRAL 11/21/2003 9 documented as of this encounter (statuses as of 07/30/2024) Immunizations Name Administration Dates Next Due HEP [...] PM EST documented as of this encounter Progress Notes * Jonn Chester, - 07/30/2024 3:19 PM EST Interventional Pain Follow-up Appointment Subjective: Chief Complaint: Chief Complaint Patient presents with Back Pain History of Present Illness: Major Patino is a 58 year old year-old male with a past medical history significant for lumbar radicular pain who is here for a follow-up appointment regarding L4/[address] Loyd on 03/2024. He reports return of symptoms 2-3 weeks ago. Relates improved mobility, ambulation, stairs during his period of relief. Estimates that he had 80% relief during 3-4 months. The pain is located in the lower back, and it does radiate to the hips and thighs. Review of his consultation with Nita Ulrich PA-C from 01/2024 reveals this is the same pain pattern. He describes itas a steady, achy painful sensation. Aggravating factors include: steps, walking. Alleviating factors include: rest. The pain is present nearly 100 % of time. His current pain score is 6/10. His painat its least is 2-3 / 10. His worst pain is 8-9 / 10. Denies weakness. Denies numbness. Denies bowel or bladder incontinence. Denies symptoms of saddle anesthesia. Denies fevers/chills/night sweats. Denies unintentional weight loss. Review of Systems: A focused 12-pt ROS were of reviewed with the patient including difficulty with sleep, snoring, aspiration history, dysphagia, stomach pain, nausea and vomiting, severe headaches, confusion, open skin lesions or wounds, chest pain, shortness of breath, excessive thirst, somnolence, dysuria, incomplete bladder emptying, easy bruising, recent clotting problems or bleeding, depression or rushed thoughts unless noted previously. Allergies, Medications, Past Medical History, Past Surgical History reviewed and documented in Epic. See detailed report if needed. Pertinent Labs/Test Results: INR ( ) Date Value 05/14/2019 0.97 No results found for: "CREATININE" Hemoglobin A1C (%) Date Value 01/26/2022 5.5 No results found for: "AMPHETAMINE", "BARBITURATES", "BENZODIAZEPINES", "BUPRENORPHINE", "METHADONE", "OPIATES", "OXYCODONE", "PHENCYCLIDINE", "CANNABINOIDS", "TOX SCREEN", "URINE", "TOX SCREEN-SERUM", "TOX SCREEN, URINE" Imaging: None new to review. Objective Physical Exam: Vital Signs: There were no vitals taken for this visit. There is no height or weight on file to calculate BMI. General: No apparent distress. Eyes: pupils equal and round, sclera white, pupils midsize. ENT: mucous membranes moist Resp: Non-labored breathing CV: Extremities warm and well-perfused. Psych: Oriented; affect warm, insight fair to good. Skin: No rashes or lesions appreciated on exposed skin Neuromuscular Exam: SLR positive bilaterally. TTP of lumbar spine. Assessment: Major is a 58 year old year-old male with: Thrombocytopenia (HCC) (Primary) - INJECT DX/THER SUBSTANCE INTERLAMINAR LUMBAR/SACRAL W IMAGE GUIDE; Future; Expected date: 07/31/2024 Lumbar radicular pain - INJECT DX/THER SUBSTANCE INTERLAMINAR LUMBAR/SACRAL W IMAGE GUIDE; Future; Expected date: 07/31/2024 Plan: Return of symptoms of his lumbar radicular pain. Will proceed with repeat L4/5 VIVIEN. The risks, benefits and alternatives to the procedure were reviewed at length and the patient was provided the opportunity to ask questions which were answered to their voiced understanding. Following this comprehensive discussion, the patient opted to proceed. The patient was advised that they will require a operator and truck driver. ASA 81mg ok to continue. Hold NSAIDs and supps, high dose aspirin x 7 days. Pre-procedural guidance provided in written form. Medical Decision Making I spent a total of 20-29 minutes (exact time 24 mins) on the date of service in preparation, delivery, and documentation of the care provided to Major Minayaler excluding any time spent in the performance of separately billed services or time spent by another provider/QHP. Max A Henrik, DO [facility], [facility] [address] [place] [address] documented in this encounter Nursing Notes * Josselin Noel LPN - 07/30/2024 3:03 PM EST Interlaminar Epidural Steroid Injection at the L4-L5 level on 04/09/24 Patient reports improvement up until 2wks ago-now in low back and right hip documented in this encounter Plan of Treatment Upcoming Encounters Date Type Department Care Team (Latest Contact Info) Description 11/08/2024 9:40 AM EDT Hospital Encounter OR [facility], Operating Room [facility] [address] [place] [phone] Jonn Chester DO [address] [place] [address] 11/08/2024 9:40 AM EDT - 11/08/2024 10:05 AM EDT Surgery OR [facility], Operating Room [facility] [address] [place] [phone] Jonn Chester DO [address] [place] [phone] INJECTION SPINE LUMBAR OR SACRAL 11/28/2024 10:00 AM EDT Office Visit [facility] [address] [phone] Luly Guajardo PA-C [address] [address] Scheduled Orders Name Type Priority Associated Diagnoses Orde r Schedule INJECT DX/THER SUBSTANCE INTERLAMINAR LUMBAR/SACRAL W IMAGE GUIDE Procedures Routine Thrombocytopenia (HCC) Lumbar radicular pain Expected: 07/31/2024, Expires: 11/28/2024 Scheduled Procedures Name Priority Associated Diagnoses Date/Ti [...] as of this encounter Visit Diagnoses Diagnosis Thrombocytopenia (HCC)- Primary Thrombocytopenia, unspecified Lumbar radicular pain Thoracic or lumbosacral neuritis or radiculitis, unspecified Lumbar radiculopathy Thoracic or lumbosacral neuritis or radiculitis, unspecified documented in this encounter Care Teams Hoop Cutter Relationship Specialty Start Date End Date Luly Guajardo PA-C [address] [facility] [address] [place] [address] PCP - General Physician Sustainability Project Manager 09/19/18 documented as of this encounter
--- OUTSIDE RECORDS SUMMARY | 2024-11-21 05:34 | External Medical Summary | Summary of Care ---
Author Name Unknown Organization [facility] Address [address] [place] [address] Phone [phone] Care Team Providers Care Plant Machinist Name Role Phone Luly Guajardo PA-C Primary Care Provider [phone] Reason for Visit * Auth/Cert Specialty Diagnoses / Procedures Referred By Aleks reyes Referred To Contact Diagnoses Lumbar radiculopathy Lumbar radiculopathy [M54.16] Procedures INJECT DX/THER SUBSTANCE INTERLAMINAR LUMBAR/SACRAL W IMAGE GUIDE INJECTION SPINE LUMBAR OR SACRAL Jonn Chester DO [address] [place] [address] Phone: tel: fax: OR [facility], Operating Room [facility] [address] [place] [address] Phone: tel: Referral ID Status Reason Start Date Expiration Date Visits Re quested Visits Authorized [id number] Encounter Details Date Type Department Care Team (Latest Contact Info) Description 11/08/2024 8:53 AM EDT - 11/08/2024 10:16 AM EDT Hospital Encounter OR [facility], Operating Room [facility] [address] [place] [address] Jonn Chester DO [address] [place] [address] Discharge Disposition: Home - Self Care Allergies No known active allergiesdocumented as of this encounter (statuses as of 11/09/2024) Medications Aspirin 81 MG Oral Tablet Delayed Release 1 Tablet. 02/29/20 Active Latanoprost 0.005 % Ophthalmic Solution (Xalatan) Instill 1 Drop into both eyes every evening. 2.5 mL 09/22/19 23 Active Triamcinolone Acetonide 0.1 % External Cream (Aristocort)Indica tions:Student Services Advisor's nodule Apply topically to affected area 3 [...] Capsule 5 01/31/20 23 Active Neomycin-Polymyxin -HC 3.5-71841-7 Otic SolutionIndication s:Chronic diffuse otitis externa of [...] ounces of water or juice.. 510 g 01/29/20 24 Active rifAXIMin 550 MG Oral Tablet (Xifaxan)Indicatio ns:Hepatic encephalopathy (HCC) Take 1 Tablet by mouth in the morning and 1 Tablet before bedtime. 60 Tablet 4 02/01/20 24 Active Lisinopril 20 MG Oral Tablet (Prinivil)Indicati ons:HTN, goal below 140/90 TAKE 1 TABLET BY MOUTH EVERY MORNING 90 Tablet 3 02/08/20 24 Active Ventolin HFA 108 (90 Base) MCG/ACT Inhalation Aerosol SolutionIndication s:Chronic alcohol dependence, continuous (HCC),SOB (shortness of breath),LRTI (lower respiratory tract infection),Alcohol ic cirrhosis, unspecified whether ascites present (HCC) inhale 2 puffs by mouth every 4 hours if needed for wheezing or dyspnea 54 g 1 07/15/20 24 Active hydrOXYzine HCl 50 MG Oral TabletIndications: Itching TAKE 1/2 TO 1 TABLET BY MOUTH EVERY 6 HOURS NEEDED FOR ITCHING 40 Tablet 2 10/22/19 25 Active documented as of this encounter (statuses as of 11/09/2024) Active Problems Problem Noted Date Diagnosed Date Alcoholic cirrhosis of liver without ascites 05/2023 Legally blind 10/28/2022 Obesity, Class II, BMI 35-39.9, isolated (see ac tual BMI) 10/28/2022 History of anoxic brain injury 10/28/2022 Thrombocytopenia 02/09/2022 HTN, goal below 130/80 05/18/2017 documented as of this encounter (statuses as of 11/09/2024) Resolved Problems Problem Noted Date Diagnosed Date Resolved Date Anoxic brain damage, not elsewhere classified 02/10/2010/28/2022 Fatty (change of) liver, not elsewhere classified 02/09/2022 10/28/2022 Bilateral hearing loss 05/18/201710/28 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 10/28/2022 Alcohol related seizure 05/18/201703/21 Left foot pain 05/10/2016 04/08/2019 ALCOH DEP UTH-CIL-WEAPPU 11/21/200305/2023 Spasm of muscle 11/21/2003 04/08/2019 SPRAIN LUMBOSACRAL 11/21/2003 9 documented as of this encounter (statuses as of 11/09/2024) Immunizations Name Administration Dates Next Due HEP [...] PM EST documented as of this encounter Last Filed Vital Signs Vital Sign Reading Time Taken Comments Blood Pressure 120/63 11/08/2024 10:05 AM EDT Pulse 84 11/08/2024 10:05 AM EDT Temperature 36.8 °C (98.2 °F) 11/08/2024 10:05 AM E DT Respiratory Rate 17 11/08/2024 10:05 AM EDT Oxygen Saturation 96% 11/08/2024 10:05 AM EDT Inhaled Oxygen Concentration - - Weight - - Height - - Body Mass Index - - documented in this encounter Discharge Instructions * Discharge Instr - AVS* Jonn Chester DO - 11/08/2024 10:[address] [facility] [address] [place] [address] Discharge Date: 11/08/2024 [facility] at [phone] during business hours. For after-hours emergencies call 911. Your attending physician at the time of your discharge was: [facility] Chester DO [address] [address] The information below provides you with the instructions and the list of medications you need to betaking following discharge from the hospital. If you have any questions, please ask before leaving.Please carry this letter with you when you see your doctor in the clinic. Diet: Resume your normal diet If you are diabetic, follow your blood sugars closely for next 2-3 days as they are likely to be elevated. If you are having difficulty controlling your blood sugars call your family doctor or the physician that treats your diabetes. Activity: Do not engage in strenuous activity today Resume your normal activities tomorrow Do not soak in water for 24 hours. No swimming, hot tub or bath but showering is allowed. Do not use heat on the injection site for 24 hours. If uncomfortable ice may be helpful. Some injections may make your arms or legs weak for a few hours. Be extremely careful when walking or changing positions that you do not fall. Have someone assist you for the next 6 hours. If weakness or numbness becomes progressive CALL IMMEDIATELY or GO TO THE NEAREST EMERGENCY ROOM Do not restart physical therapy or chiropractic manipulation until 48 hours after your injection Call : If weakness or numbness suddenly becomes worse or become progressive If the injection site becomes red, swollen, warm to the touch, begins to bleed or drain fluid, or is excessively painful. If you have any questions Medications: Resume all the medications you were taking prior to your injection. Resume your anticoagulants tomorrow unless otherwise instructed by your family physician, australian rules footballer or the anticoagulation clinic. Additional Instructions: None Driving: You may resume driving in 12-24 hours if no weakness is noted . Date you may return to work or school: Please make sure you take off your band- aid later this evening. Follow Up: Please make a follow-up telephone appointment with our nursing staff in 4-6 weeks. documented in this encounter Progress Notes * Jonn Chester DO - 11/08/2024 10:05 AM EDT [facility] [address] [address] OUTPATIENT SURGERY DISCHARGE SUMMARY NOTE Name: Major Patino Location: OR [facility]/OR Date: 11/08/2024 Time: 10:06 AM Surgery Date: 11/08/2024 Procedure: INJECTION SPINE LUMBAR OR SACRAL No laterality found for procedure #1 Surgeon: Jonn Chester DO Discharge Diagnosis: lumbar radicular pain After examination of this patient, I have determined he is ready for discharge to home when the patient meets criteria. Discharge instructions were given to the patient. Jonn Chester DO OR [facility], [facility] [address] [facility] [place] [address] documented in this encounter H&P Notes * Jonn Chester DO - 11/08/2024 9:45 AM EDT Interventional Pain H&P Subjective: History of Present Illness: Major Patino is a 59 year old year-old male with a past medical history significant for chronic lumbar radicular pain who is presenting for L4/5 VIVIEN to improve his pain and function. his pain is essentially unchanged since our last office visit with him. ASA 3 AW nml Review of Systems: A focused 12-pt ROS were of reviewed with the patient including difficulty with sleep, snoring, aspiration history, dysphagia, stomach pain, nausea and vomiting, severe headaches, confusion, open skin lesions or wounds, chest pain, shortness of breath, excessive thirst, somnolence, dysuria, incomplete bladder emptying, easy bruising, recent clotting problems or bleeding, depression or rushed thoughts unless noted previously. Review of patient's allergies indicates: No Known Allergies Medications, Past Medical History, Past Surgical History reviewed and documented in Epic. See detailed report if needed. Pertinent Labs/Test Results: INR ( ) Date Value 05/14/2019 0.97 No results found for: "CREATININE" Hemoglobin A1C (%) Date Value 01/26/2022 5.5 No results found for: "AMPHETAMINE", "BARBITURATES", "BENZODIAZEPINES", "BUPRENORPHINE", "METHADONE", "OPIATES", "OXYCODONE", "PHENCYCLIDINE", "CANNABINOIDS", "TOX SCREEN", "URINE", "TOX SCREEN-SERUM", "TOX SCREEN, URINE" FLUORO INTERVENTIONAL PAIN PROCEDURE NONBILLABLE This procedure will not be read by a Radiologist. Please see operative note. Objective Physical Exam: Vital Signs: There were no vitals taken for this visit. There is no height or weight on file to calculate BMI. General: No apparent distress. Eyes: pupils equal and round, sclera white, pupils midsize. ENT: mucous membranes moist Resp: Non-labored breathing CV: Extremities warm and well-perfused. Psych: Oriented; affect warm, insight good. Skin: No rashes or lesions appreciated on exposed skin Neuromuscular Exam: TTP over lumbar spine Assessment: Major is a 59 year old year-old male with: Lumbar radicular pain Plan: The patient is undergoing L4/5 VIVIEN today to alleviate his pain and improve his function. The risks,benefits and alternatives to the procedure were reviewed at length and the patient was provided theopportunity to ask questions which were answered to their voiced understanding. Following this comprehensive discussion, the patient opted to proceed. The patient was consented to the procedure follow ing this comprehensive conversation. Jonn Chester DO OR [facility], Operating Room [facility] [address] [facility] [address] documented in this encounter Nursing Notes * Lars Hutchinson RN - 11/08/2024 10:15 AM EDT Patient tolerated pain injection well. Pt spoke to Dr. Chester Ready for discharge to home. * Ruma Bobo RN - 11/08/2024 10:05 AM EDT Band aid applied to area. Patient transferred to PACU 11 via wheelchair * Ruma Bobo RN - 11/08/2024 10:01 AM EDT Patient tolerating pain management injection well. documented in this encounter OR Notes * OR Surgeon - Jonn Chester DO - 11/08/2024 10:04 AM EDT INTERLAMINAR LUMBAR EPIDURAL STEROID INJECTION DATE: 11/08/2024 PHYSICIAN: Jonn Chester DO PREOPERATIVE DIAGNOSIS: Lumbar spondylosis with lumbar radiculopathy. POSTOPERATIVE DIAGNOSIS: Lumbar spondylosis with lumbar radiculopathy. PROCEDURE PERFORMED: L4/5 interlaminar epidural steroid injection on the right side. Fluoroscopy for precise needle placement. ANESTHESIA: Local infiltration with 1% lidocaine. MONITORS: Automatic blood pressure cuff, pulse oximetry. There was no engineer first assistant, EBL or drains placed during this procedure. INDICATIONS: I had the pleasure of seeing Major Patino ([id number]) in the [facility] today. Major Patino is a 59 year old year-old male has a history of lumbar radiculopathy. he is here today for an interlaminar lumbar epidural steroid injection. MEDICATIONS: No current facility-administered medications for this encounter. ALLERGIES: Review of patient's allergies indicates: No Known Allergies REVIEW OF SYSTEMS: Negative for fever, chills, chest pain, SOB, bleeding abnormalities, nausea, vomiting, diarrhea, worsening edema, or new rashes. FOCUSED PHYSICAL EXAMINATION: The patient is awake, alert and oriented, and is in no acute distress. Vital signs are stable. The patient is afebrile. The rest of the PE is essentially unchanged from the patient's recent visit to our office. I explained the procedure to the patient including the risks, benefits and alternatives to the procedure. The risks discussed with the patient included but were not limited to: bleeding, infection, and damage to surrounding nerves, tissues, and organs, paralysis, increased pain, pain at the site ofinjection, allergic reaction, blood pressure instability, seizures, heart block, headaches, increase in blood sugar, worsening of glaucoma, blindness, manic episodes, mood instability, . Alternatives to the procedure were also explained and include: do nothing, surgery, medications, and physical therapy. The patient verbalized understanding and was willing to proceed. PROCEDURE IN DETAIL: An informed consent was obtained. The patient was taken to the procedure room,was positively identified by the staff and attending physician. The patient was positioned prone onthe procedure bed. Vital signs were monitored as above and remained stable throughout the procedure. The skin was prepped and draped in a standard sterile fashion. A surgical pause time-out was performed and agreed upon by the members of the team. Fluoroscopic view of the lumbar spine was obtained and the area of interest was identified. The skin and subcutaneous tissues were anesthetized using 1% lidocaine and 25-gauge 1-1/2 inch needle. After that, a 20-gauge, 3.5-inch epidural needle was advanced towards the L4/5 interlaminar window in the right paramedian position. AP, contralateral oblique and lateral views were used to assess appropriate needle position. Loss of resistance to air technique was utilized and was obtained at 8 cmfrom the skin. The needle's position was additionally verified by injecting iodinated radiopaque dye, which showed spread of the dye in the epidural space in AP and lateral views. After negative aspiration for CSF and blood, 80 mg of Kenalog, 1 mL of 1% lidocaine and 1mL of sterile preservative-free normal saline was injected into the epidural space. The needle was withdrawn. The patient tolerated the procedure well. COMPLICATIONS: None. DISPOSITION: Discharge to home when the discharge criteria are met. 2. Return to clinic in 1-2 months for follow-up evaluation, sooner as needed. 3. Resume activity as tolerated. 4. Patient can drive after 12-24 hours if no weakness noted. Jonn Chester DO OR [facility], Operating Room [facility] [address] [place] [address] documented in this encounter Plan of Treatment Upcoming Encounters Date Type Department Care Team (Late st Contact Info) Description 11/28/2024 10:00 AM EDT Office Visit [facility] [address] [place] [phone] Luly Guajardo PA-C [address] [place] [address] 12/26/2024 2:00 PM EDT Scheduled Telephone [facility] [address] [place] [phone] Nurse Frank Phone Call Interventional Pain [facility] [address] [place] [phone] Scheduled Procedures Name Priority Associated Diagnoses Date/Ti [...] Not on filedocumented as of this encounter Procedures Procedure Name Priority Date/Time Associated Diagnosis Comments FLUORO INTERVENTIONAL PAIN PROCEDURE NONBILLABLE Routine 11/08/2024 10:13 AM EDT documented in this encounter Results * FLUORO INTERVENTIONAL PAIN PROCEDURE NONBILLABLE (11/08/2024 10:13 AM EDT) Narrative Scheduling, Silent - 11/08/2024 10:14 AM EDT This procedure will not be read by a Radiologist. Please see operative note. us Jonn Chester DO RAD FLUOROSCOPY Final Result documented in this encounter Administered Medications Inactive Administered Medications - up to 3 most recent administrations Medication Order MAR Action Action Date Dose Rate Site Iohexol (Omnipaque 240) inj 0.5 mL 0.5 mL, Epidural, ONCE, On Mon11/08/24 at 0945, For 1 dose, For caudal epidural Given 11/08/2024 10:03 AM EDT 1.5 mL lidocaine 1 % inj 20 mg 20 mg (2 mL), Subcutaneous, ONCE, On Mon11/08/24 at 0945, For 1 dose Given 11/08/2024 10:00 AM EDT 5 mL Other-Specify Triamcinolone Acetonide (Kenalog) 40 MG/ML inj 40 mg 40 mg, Injection, ONCE, On Mon11/08/24 at 0945, For 1 dose Given 11/08/2024 10:03 AM EDT 80 mg documented in this encounter Active and Recently Administered Medications Times are shown in EDT. Scheduled Medication Order 11/06/2024 11/07/2024 11/08/2024 Iohexol (Omnipaque 240) inj 0.5 mL (COMPLETED) 0.5 mL, Epidural, ONCE, On Mon11/08/24 at 0945, For 1 dose, For caudal epidural 1003 (Given - Provid er: Ruma Bobo RN) lidocaine 1 % inj 20 mg (COMPLETED) 20 mg (2 mL), Subcutaneous, ONCE, On Mon11/08/24 at 0945, For 1 dose 1000 (Given - Provid er: Ruma Bobo RN) Triamcinolone Acetonide (Kenalog) 40 MG/ML inj 40 mg (COMPLETED) 40 mg, Injection, ONCE, On Mon11/08/24 at 0945, For 1 dose 1003 (Given - Provid er: Ruma Bobo RN) documented in this encounter Care Teams Plant Machinist Relationship Specialty Start Date End Date Luly Guajardo PA-C [address] [place] [address] PCP - General Physician Extractor Machine Operator 10/28/24 documented as of this encounter
[2024-11-21 06:08] LABS: INR 1.2 (0.9-1.1)
[2024-11-21 06:15] LABS: Hematocrit (blood only) 31.4 % (42.0-52.0); Hemoglobin 11.3 g/dl (14.0-18.0); Mean Corpuscular Hemoglobin 32.4 pg (25.0-34.0); Mean Platelet Volume 12.5 fL (9.4-12.4); Platelet Count 78 K/uL (130-400); RDW Coefficient of Variation 15.5 % (11.5-14.5); RDW Standard Deviation 50.4 fL (36.4-46.3); Red Blood Count 3.49 M/uL (4.70-6.10); White Blood Count 13.35 K/ul (4.8-10.8)
[2024-11-21 06:33] LABS: Albumin Level 2.7 gm/dl (3.4-5.0); Basophils # (auto) 0.03 K/uL (0.00-0.20); Basophils % (auto) 0.2 %; Bilirubin Direct 4.7 mg/dl (0-0.2); Bilirubin,Total 9.3 mg/dl (0.2-1.0); Calcium 9.9 mg/dl (8.6-10.3); Eosinophils # (auto) 0.11 K/uL (0.00-0.50); Eosinophils % (auto) 0.8 %; Immature Granulocytes # (auto) 0.11 K/uL (0.01-0.20); Immature Granulocytes % (auto) 0.8 %; Lymphocytes # (auto) 0.83 K/uL (1.20-3.40); Lymphocytes % (auto) 6.2 %; Magnesium 2.4 mg/dl (1.7-2.4); Monocytes # (auto) 1.18 K/uL (0.11-0.59); Monocytes % (auto) 8.8 %; Neutrophils # (auto) 11.09 K/uL (1.40-6.50); Neutrophils % (auto) 83.2 %; Pappenheimer Bodies 1+; Polychromasia 1+; Potassium 4.8 mmol/L (3.5-5.1); Target Cells 1+; Toxic Vacuolation 1+
[2024-11-21 06:39] LABS: Phosphorus 3.8 mg/dl (2.5-4.9); Total Protein 6.7 gm/dl (6.0-8.3)
[2024-11-21 07:43] LABS: Estimated Average Glucose 243 mg/dl; Hemoglobin A1C 10.1 % (4.5-5.6)
--- NOTE | 2024-11-21 08:44 | Critical Care Progress Note ---
Date of Service November 21, 2024 Assessment & Plan (1) Sepsis: (2) Cirrhosis: (3) Acute hyperglycemia: (4) Acute hyponatremia: (5) Acute hyperkalemia: (6) Alcohol abuse: (7) ARF (acute renal failure): (8) Alcohol withdrawal: (9) Melena: Plan Reason Critically Ill: 59 YOM presents via EMS to ER for complaints of abdominal pain. Concern for septic shock with organ dysfunction as well as chronic cirrhosis. ICU for hyperkalemia, renal failure, and possible need for vasopressor support. Neuro - Metabolic grade II hepatic encephalopathy - Lactulose p.o. Alcohol withdrawal protocol. Delirium precautions. High- dose thiamine x 3 days. Cardiac - Shock, -Hypovolemic shock possible septic component. Resolving. Troponin negative on admission. Respiratory - No acute needs. Chest x-ray personally reviewed admission without acute process. GI - Acute on Chronic cirrhosis - elevated LFTS with slight elevation of his INR at 1.2-stable - no acute pathology noted on CT abd/pelvis. Suspect colic hepatitis. Also concern for possible upper GI bleed due to melanotic stools this morning. GI consult pending. Protonix on board. Consider octreotide if melena. RENAL/LYTES - ARF non oliguric, multiple electrolyte disturbances -Patient presented with hyponatremia, CEE, hyperkalemia and hyperglycemia. Electrolytes and kidney function improving with crystalloid infusion saline colloid as needed. Patient remains glycemic. Will consult pharmacy for assistance. - No acute needs - Dumont to monitor NILDA in setting of ARF- remove Dumont when hemodynamics stable and improvement in renal indices ENDO - Elevated blood glucose without diagnosis of diabetes - ICU hyperglycemia protocol HEME -possible upper GI bleeding. Protonix on board. Hemoglobin currently stable. Platelet count trending down most likely related to sepsis coagulopathy and liver dysfunction. ID - Septic shock, resolving - SIRS with organ dysfunction - elevated WBC, elevated NLR, elevated PCT- - source- skin vs, urine vs. intraabdominal or combination of these - ascites is small volume - Zosyn and dapto for now LINES/IV ACCESS - PIV, Dumont Continue use of these lines DVT PROPHYLAXIS - SCDS, heparin subcu on hold DISPO: PCU Admission and Anticipated Discharge Date Admission Date: November 20, 2024 Subjective Patient seen and examined. Lethargic this morning. Alert and oriented x 1. No significant acute events. Stable overnight. Review of Systems Review of Systems: Unobtainable due to cognitive status Physical Exam Physical Exam: PHYSICAL EXAM: General: lethargic, ill apearing Head: Normocephalic, atraumatic Neuro: Awakens to voice, mild encephalopathy grade II, AAO x 1, speech slow and mostly appropriate, mild nystagmus, moves all extremities, tremor noted, no asterixis apprecaited Chest: equal rise and fall of the chest, no accessory muscle use, no heaves or thrills, Clear to auscultation, on room air, Cardiac: Regular rate and rhythm, telemetry reviewed, skin warm and dry, peripheral pulses 2+ GI: NABS x 4 quadrants, tender to palpation center, no rebound or gaurding : dumont to gravity draining elinor colored urine Skin: dried blood to bilateral lower legs and scratches noted on legs- patient reports this is from him scratching and digging. Results & Data Results & Data Vital Signs (Past 12 Hours) Vital Signs Temp Pulse Pulse Resp BP BP Pulse Ox 11/21/24 07:23 94 H 11/21/24 06:45 36.9 C 95 H 18 95 11/21/24 06:30 36.9 C 101 H 18 96 11/21/24 06:24 109/52 L 11/21/24 06:24 109/52 L 11/21/24 06:24 109/52 L 11/21/24 06:24 109/52 L 11/21/24 06:24 109/52 L 11/21/24 06:24 109/52 L 11/21/24 06:24 109/52 L 11/21/24 06:24 109/52 L 11/21/24 06:24 109/52 L 11/21/24 06:24 109/52 L 11/21/24 06:24 109/52 L 11/21/24 06:24 109/52 L 11/21/24 06:24 109/52 L 11/21/24 06:24 109/52 L 11/21/24 06:24 36.9 C 103 H 18 95 11/21/24 06:00 90/47 L 11/21/24 06:00 90/47 L 11/21/24 06:00 90/47 L 11/21/24 06:00 90/47 L 11/21/24 06:00 90/47 L 11/21/24 06:00 90/47 L 11/21/24 06:00 90/47 L 11/21/24 06:00 90/47 L 11/21/24 06:00 36.9 C 101 H 26 H 96 11/21/24 05:54 36.9 C 96 H 21 94 11/21/24 05:36 36.8 C 95 H 17 97 11/21/24 05:03 36.8 C 96 H 27 H 97 11/21/24 05:01 109/52 L 11/21/24 05:01 109/52 L 11/21/24 05:01 109/52 L 11/21/24 05:01 109/52 L 11/21/24 05:01 109/52 L 11/21/24 05:01 109/52 L 11/21/24 05:01 109/52 L 11/21/24 05:01 109/52 L 11/21/24 05:01 109/52 L 11/21/24 05:01 109/52 L 11/21/24 05:01 109/52 L 11/21/24 05:01 109/52 L 11/21/24 05:01 109/52 L 11/21/24 05:01 109/52 L 11/21/24 05:01 109/52 L 11/21/24 05:01 109/52 L 11/21/24 05:01 109/52 L 11/21/24 05:01 109/52 L 11/21/24 05:01 109/52 L 11/21/24 05:01 109/52 L 11/21/24 05:01 109/52 L 11/21/24 04:51 36.8 C 91 H 13 95 11/21/24 04:36 36.7 C 95 H 15 96 11/21/24 04:21 36.7 C 91 H 15 98 11/21/24 04:18 36.7 C 92 H 15 97 11/21/24 04:09 36.7 C 93 H 18 99 11/21/24 04:00 100/48 L 11/21/24 04:00 100/48 L 11/21/24 04:00 100/48 L 11/21/24 04:00 100/48 L 11/21/24 04:00 100/48 L 11/21/24 04:00 100/48 L 11/21/24 04:00 100/48 L 11/21/24 04:00 100/48 L 11/21/24 04:00 100/48 L 11/21/24 04:00 100/48 L 11/21/24 04:00 100/48 L 11/21/24 04:00 100/48 L 11/21/24 04:00 100/48 L 11/21/24 04:00 100/48 L 11/21/24 04:00 100/48 L 11/21/24 04:00 100/48 L 11/21/24 04:00 100/48 L 11/21/24 04:00 100/48 L 11/21/24 04:00 100/48 L 11/21/24 04:00 100/48 L 11/21/24 03:45 36.8 C 95 H 19 99 11/21/24 03:36 36.8 C 102 H 15 97 11/21/24 03:12 36.8 C 98 H 16 96 11/21/24 03:09 36.8 C 97 H 15 96 11/21/24 03:00 101/47 L 11/21/24 03:00 101/47 L 11/21/24 03:00 101/47 L 11/21/24 03:00 101/47 L 11/21/24 03:00 101/47 L 11/21/24 03:00 101/47 L 11/21/24 03:00 101/47 L 11/21/24 03:00 101/47 L 11/21/24 03:00 101/47 L 11/21/24 03:00 101/47 L 11/21/24 03:00 101/47 L 11/21/24 03:00 101/47 L 11/21/24 03:00 101/47 L 11/21/24 03:00 101/47 L 11/21/24 03:00 101/47 L 11/21/24 03:00 101/47 L 11/21/24 03:00 101/47 L 11/21/24 03:00 101/47 L 11/21/24 02:54 36.9 C 97 H 15 97 11/21/24 02:51 36.9 C 95 H 20 97 11/21/24 02:48 36.9 C 97 H 20 97 11/21/24 01:36 36.9 C 96 H 28 H 96 11/21/24 01:31 95/56 L 11/21/24 01:31 95/56 L 11/21/24 01:31 95/56 L 11/21/24 01:31 95/56 L 11/21/24 01:18 36.8 C 94 H 17 97 11/21/24 01:15 36.8 C 94 H 17 98 11/21/24 01:15 91/46 L 11/21/24 01:15 91/46 L 11/21/24 01:15 91/46 L 11/21/24 01:15 91/46 L 11/21/24 01:00 36.8 C 95 H 17 96 11/21/24 01:00 94/47 L 11/21/24 01:00 94/47 L 11/21/24 01:00 94/47 L 11/21/24 01:00 94/47 L 11/21/24 01:00 94/47 L 11/21/24 01:00 94/47 L 11/21/24 01:00 94/47 L 11/21/24 01:00 94/47 L 11/21/24 01:00 94/47 L 11/21/24 00:54 97/50 L 11/21/24 00:54 97/50 L 11/21/24 00:54 36.8 C 99 H 21 94 11/21/24 00:50 94/46 L 11/21/24 00:45 36.9 C 100 H 33 H 98 11/21/24 00:42 36.9 C 98 H 20 93 11/21/24 00:17 94/49 L 11/21/24 00:17 94/49 L 11/21/24 00:17 94/49 L 11/21/24 00:17 94/49 L 11/21/24 00:17 94/49 L 11/21/24 00:06 36.9 C 99 H 18 96 11/21/24 00:03 81/45 L 11/21/24 00:03 81/45 L 11/21/24 00:03 81/45 L 11/21/24 00:03 81/45 L 11/21/24 00:01 85/48 L 11/21/24 00:00 36.9 C 104 H 19 96 11/20/24 23:30 36.9 C 102 H 19 95 11/20/24 23:21 36.8 C 106 H 14 94 11/20/24 23:00 133/51 L 11/20/24 23:00 133/51 L 11/20/24 23:00 133/51 L 11/20/24 23:00 133/51 L 11/20/24 23:00 133/51 L 11/20/24 23:00 133/51 L 11/20/24 23:00 133/51 L 11/20/24 23:00 133/51 L 11/20/24 23:00 133/51 L 11/20/24 22:57 102 H 11/20/24 21:21 36.6 C 107 H 26 H 97 11/20/24 21:12 36.5 C 100 H 17 100 11/20/24 21:03 36.5 C 102 H 18 99 11/20/24 21:00 119/52 L 11/20/24 21:00 119/52 L 11/20/24 21:00 119/52 L 11/20/24 21:00 119/52 L 11/20/24 21:00 119/52 L 11/20/24 21:00 119/52 L 11/20/24 21:00 119/52 L 11/20/24 21:00 119/52 L 11/20/24 21:00 119/52 L 11/20/24 21:00 119/52 L 11/20/24 21:00 119/52 L 11/20/24 20:57 36.5 C 104 H 18 98 11/20/24 20:45 36.5 C 105 H 17 98 11/20/24 20:40 103/54 L 11/20/24 20:40 103/54 L 11/20/24 20:40 103/54 L 11/20/24 20:40 103/54 L 11/20/24 20:40 103/54 L 11/20/24 20:40 103/54 L 11/20/24 20:40 36.5 C 105 H 20 103/54 L 97 11/20/24 20:39 107 H 19 O2 Del Method 11/21/24 07:23 11/21/24 06:45 11/21/24 06:30 11/21/24 06:24 11/21/24 06:24 11/21/24 06:11/21/24 06:11/21/24 06:11/21/24 06:24 11/21/24 06:24 11/21/24 06:11/21/24 06:24 11/21/24 06:24 11/21/24 06:24 11/21/24 06:24 11/21/24 06:24 11/21/24 06:24 11/21/24 06:24 11/21/24 06:00 11/21/24 06:00 11/21/24 06:00 11/21/24 06:00 11/21/24 06:00 11/21/24 06:00 11/21/24 06:00 11/21/24 06:00 11/21/24 06:00 11/21/24 05:54 11/21/24 05:36 11/21/24 05:03 11/21/24 05:01 11/21/24 05:01 11/21/24 05:01 11/21/24 05:01 11/21/24 05:01 11/21/24 05:01 11/21/24 05:01 11/21/24 05:01 11/21/24 05:01 11/21/24 05:01 11/21/24 05:01 11/21/24 05:01 11/21/24 05:01 11/21/24 05:01 11/21/24 05:01 11/21/24 05:01 11/21/24 05:01 11/21/24 05:01 11/21/24 05:01 11/21/24 05:01 11/21/24 05:01 11/21/24 04:51 11/21/24 04:36 11/21/24 04:21 11/21/24 04:18 11/21/24 04:09 11/21/24 04:00 11/21/24 04:00 11/21/24 04:00 11/21/24 04:00 11/21/24 04:00 11/21/24 04:00 11/21/24 04:00 11/21/24 04:00 11/21/24 04:00 11/21/24 04:00 11/21/24 04:00 11/21/24 04:00 11/21/24 04:00 11/21/24 04:00 11/21/24 04:00 11/21/24 04:00 11/21/24 04:00 11/21/24 04:00 11/21/24 04:00 11/21/24 04:00 11/21/24 03:45 11/21/24 03:36 11/21/24 03:12 11/21/24 03:09 11/21/24 03:00 11/21/24 03:00 11/21/24 03:00 11/21/24 03:00 11/21/24 03:00 11/21/24 03:00 11/21/24 03:00 11/21/24 03:00 11/21/24 03:00 11/21/24 03:00 11/21/24 03:00 11/21/24 03:00 11/21/24 03:00 11/21/24 03:00 11/21/24 03:00 11/21/24 03:00 11/21/24 03:00 11/21/24 03:00 11/21/24 02:54 11/21/24 02:51 11/21/24 02:48 11/21/24 01:36 11/21/24 01:31 11/21/24 01:31 11/21/24 01:31 11/21/24 01:31 11/21/24 01:18 11/21/24 01:15 11/21/24 01:15 11/21/24 01:15 11/21/24 01:15 11/21/24 01:15 11/21/24 01:00 11/21/24 01:00 11/21/24 01:00 11/21/24 01:00 11/21/24 01:00 11/21/24 01:00 11/21/24 01:00 11/21/24 01:00 11/21/24 01:00 11/21/24 01:00 11/21/24 00:54 11/21/24 00:54 11/21/24 00:54 11/21/24 00:50 11/21/24 00:45 11/21/24 00:42 11/21/24 00:17 11/21/24 00:17 11/21/24 00:17 11/21/24 00:17 11/21/24 00:17 11/21/24 00:06 11/21/24 00:03 11/21/24 00:03 11/21/24 00:03 11/21/24 00:03 11/21/24 00:01 11/21/24 00:00 11/20/24 23:30 11/20/24 23:21 11/20/24 23:00 11/20/24 23:00 11/20/24 23:00 11/20/24 23:00 11/20/24 23:00 11/20/24 23:00 11/20/24 23:00 11/20/24 23:00 11/20/24 23:00 11/20/24 22:57 11/20/24 21:21 11/20/24 21:12 11/20/24 21:03 11/20/24 21:00 11/20/24 21:00 11/20/24 21:00 11/20/24 21:00 11/20/24 21:00 11/20/24 21:00 11/20/24 21:00 11/20/24 21:00 11/20/24 21:00 11/20/24 21:00 11/20/24 21:00 11/20/24 20:57 11/20/24 20:45 11/20/24 20:40 11/20/24 20:40 11/20/24 20:40 11/20/24 20:40 11/20/24 20:40 11/20/24 20:40 11/20/24 20:40 Room Air 11/20/24 20:39 Coding Level of Care Code 52305 SUB INP/OBS CARE 2MIN Diagnoses Sepsis A41.9 Cirrhosis K74.60 Acute hyperglycemia R73.9 Acute hyponatremia E87.1 Acute hyperkalemia E87.5 Alcohol abuse F10.10 ARF (acute renal failure) N17.9 Alcohol withdrawal F10.939 Melena K92.1
[2024-11-21] MEDS ORDERED: HEPARIN SOD 5,000 UNIT/0.5 ML VIAL SQ SCH (09:00)
[2024-11-21] MEDS: FOLIC ACID 1 MG in SYRINGE 9.8 ML IV SCH (09:28)
[2024-11-21] MEDS: INSULIN PROTOCOL GOAL RANGE ONE (09:31)
--- NOTE | 2024-11-21 10:11 | Gastrointestinal Consultation ---
Date of Consultation November 21, 2024 Assessment & Plan (1) Cirrhosis: (2) Melena: Plan Patient has a history of cirrhosis with a reported history of ongoing alcohol abuse. MELD 27. There was a dark stool that was questionable as melena. Per nursing, no signs of active GI bleeding. Hgb stable. - continue to follow hgb/hct, transfuse as needed. - continue with protonix 40mg IV BID. - He will need to be educated on working towards stopping alcohol use once his encephalopathy resolves. - recommend supportive care at this time. Supervising Physician Co-Signing Physician Notes I personally saw and examined the patient. I have reviewed the chart and agree with the documentation provided by the RN EXAMINER including discussion about the assessment, treatment and plan. Briefly, 59 year old male with a past medical history of alcoholic cirrhosis, who presented to the ED with nausea, vomiting, and abdominal pain over the past few days. He reportedly still drinks at least 12 beers a day. Over the last few days, he has been nauseated and he has had some vomiting. He had been weak and his family was concerned about how he was doing and felt he was not safe as an outpatient, so was brought to ED. He was admitted for concern of septic shock with organ dysfunction as well as chronic cirrhosis and sent to the ICU for hyperkalemia, renal failure, and possible need for vasopressor support. He has an elevated AST ALT and bilirubin to 9. Findings of his CT just showed a shrunken liver with cirrhosis and minimal ascites. There is no gallbladder stones or ductal dilation. Findings are suggestive of alcoholic cirrhosis with alcoholic hepatitis. Does not appear to be actively bleeding and hemoglobin is stable at 11. I would treat him supportively with PPI. Twice daily and lactulose and Xifaxan. He has a meld 27 but came in septic shock (not a candidate for prednisolone therapy). History of Present Illness Reason for Consultation: acute on chronic liver failure Requesting Physician: Tariq CLARK Attending Physician: Anil Hutchison MD History of Present Illness Patient is a 59 year old male with a past medical history of alcoholic cirrhosis, who presented to the ED with nausea, vomiting, and abdominal pain over the past few days. History is obtained via nursing and chart review as patient does not provide any history. He reportedly still drinks at least 12 beers a day. Over the last few days, he has been nauseated and he has had some vomiting. He had been weak and his family was concerned about how he was doing and felt he was not safe as an outpatient, so was brought to ED. He was admitted for concern of septic shock with organ dysfunction as well as chronic cirrhosis and sent to the ICU for hyperkalemia, renal failure, and possible need for vasopressor support. Patient wakes up when spoken to, but he does not provide any meaningful insight. Last evening he was given lactulose as his ammonia was elevated at 85, his first bowel movement was dark. GI was asked to see in light of this in case this was a possible GI bleed. Hgb on arrival was 13 and fell to 11.4, but has held stable at 11.3. I spoke with nursing, no signs of any active GI bleeding or GI issues outside of his cirrhosis. MELD 27. CT 11/20/24 Cirrhosis, worsened since the prior study. Minimal amount of ascites. Small bilateral inguinal hernias containing only fat. Allergies Allergy/AdvReac Type Severity Reaction Status Date / Time No Known Allergies Allergy Verified 04/04/21 18:18 Home Medications Medication Instructions Recorded Confirmed Type folic acid 1 mg tablet 1 mg PO QAM 05/02/18 11/20/24 History lisinopril 20 mg tablet 20 mg PO QAM 09/13/18 11/20/24 History magnesium chloride 64 mg 64 mg PO BID #60 tabs 06/13/20 11/20/24 Rx (magnesium chloride) tablet,delayed release (Mag 64) aspirin 81 mg tablet,delayed 81 mg PO DAILY 04/04/21 11/20/24 History release albuterol sulfate 90 mcg/actuation 1 puff inhalation DIRECTED PRN 11/20/24 11/20/24 History aerosol inhaler SOB/Wheezing hydroxyzine HCl 50 mg tablet 25 - 50 mg PO Q6H PRN Unknown 11/20/24 11/20/24 History Patient History Medical History (Updated 11/21/24 @ 08:39 by Ronald Whittington MD) Retained ureteral stent Alcohol dependence Social History Smoking Status: Never smoker Second Hand Exposure: No; Do You Dip or Chew Tobacco: Yes; Hx Alcohol Use: Yes Alcohol type: beer Preferred Language: Turkish Communication Ability: Impaired Electronics Utility Worker Required: No Beliefs That Will Affect Care: None Current Living Situation: Alone current occupational status: disabled Other Information That Helps Us Care for You: No Feels Safe at Home: Yes Safety Concerns: Feels Safe At This Time Assistive Devices: None Review of Systems Review of Systems: All systems reviewed & are unremarkable except as noted in HPI & below Physical Exam Constitutional: WD/WN, vitals as above Respiratory: clear to auscultation. Cardiovascular: Rate/Rhythm: regular rate and regular rhythm Gastrointestinal (Abdomen): abdomen soft, normal bowel sounds. Results & Data Vital Signs (Past 12 Hours) Vital Signs Temp Pulse Resp BP Pulse Ox O2 Del Method 11/21/24 09:03 98.6 F 90 18 96 Room Air 11/21/24 09:00 99/48 L 11/21/24 08:54 98.6 F 91 H 15 96 11/21/24 08:12 98.6 F 93 H 17 98 11/21/24 08:00 110/54 L 11/21/24 07:48 98.4 F 94 H 16 96 11/21/24 07:23 94 H 11/21/24 07:14 111/55 L 11/21/24 06:45 98.4 F 95 H 18 95 11/21/24 06:30 98.4 F 101 H 18 96 11/21/24 06:24 109/52 L 11/21/24 06:24 109/52 L 11/21/24 06:24 109/52 L 11/21/24 06:24 109/52 L 11/21/24 06:24 109/52 L 11/21/24 06:24 109/52 L 11/21/24 06:24 109/52 L 11/21/24 06:24 109/52 L 11/21/24 06:24 109/52 L 11/21/24 06:24 109/52 L 11/21/24 06:24 109/52 L 11/21/24 06:24 109/52 L 11/21/24 06:24 109/52 L 11/21/24 06:24 109/52 L 11/21/24 06:24 98.4 F 103 H 18 95 11/21/24 06:00 90/47 L 11/21/24 06:00 90/47 L 11/21/24 06:00 90/47 L 11/21/24 06:00 90/47 L 11/21/24 06:00 90/47 L 11/21/24 06:00 90/47 L 11/21/24 06:00 90/47 L 11/21/24 06:00 90/47 L 11/21/24 06:00 98.4 F 101 H 26 H 96 11/21/24 05:54 98.4 F 96 H 21 94 11/21/24 05:36 98.2 F 95 H 17 97 11/21/24 05:03 98.2 F 96 H 27 H 97 11/21/24 05:01 109/52 L 11/21/24 05:01 109/52 L 11/21/24 05:01 109/52 L 11/21/24 05:01 109/52 L 11/21/24 05:01 109/52 L 11/21/24 05:01 109/52 L 11/21/24 05:01 109/52 L 11/21/24 05:01 109/52 L 11/21/24 05:01 109/52 L 11/21/24 05:01 109/52 L 11/21/24 05:01 109/52 L 11/21/24 05:01 109/52 L 11/21/24 05:01 109/52 L 11/21/24 05:01 109/52 L 11/21/24 05:01 109/52 L 11/21/24 05:01 109/52 L 11/21/24 05:01 109/52 L 11/21/24 05:01 109/52 L 11/21/24 05:01 109/52 L 11/21/24 05:01 109/52 L 11/21/24 05:01 109/52 L 11/21/24 04:51 98.2 F 91 H 13 95 11/21/24 04:36 98.1 F 95 H 15 96 11/21/24 04:21 98.1 F 91 H 15 98 11/21/24 04:18 98.1 F 92 H 15 97 11/21/24 04:09 98.1 F 93 H 18 99 11/21/24 04:00 100/48 L 11/21/24 04:00 100/48 L 11/21/24 04:00 100/48 L 11/21/24 04:00 100/48 L 11/21/24 04:00 100/48 L 11/21/24 04:00 100/48 L 11/21/24 04:00 100/48 L 11/21/24 04:00 100/48 L 11/21/24 04:00 100/48 L 11/21/24 04:00 100/48 L 11/21/24 04:00 100/48 L 11/21/24 04:00 100/48 L 11/21/24 04:00 100/48 L 11/21/24 04:00 100/48 L 11/21/24 04:00 100/48 L 11/21/24 04:00 100/48 L 11/21/24 04:00 100/48 L 11/21/24 04:00 100/48 L 11/21/24 04:00 100/48 L 11/21/24 04:00 100/48 L 11/21/24 03:45 98.2 F 95 H 19 99 11/21/24 03:36 98.2 F 102 H 15 97 11/21/24 03:12 98.2 F 98 H 16 96 11/21/24 03:09 98.2 F 97 H 15 96 11/21/24 03:00 101/47 L 11/21/24 03:00 101/47 L 11/21/24 03:00 101/47 L 11/21/24 03:00 101/47 L 11/21/24 03:00 101/47 L 11/21/24 03:00 101/47 L 11/21/24 03:00 101/47 L 11/21/24 03:00 101/47 L 11/21/24 03:00 101/47 L 11/21/24 03:00 101/47 L 11/21/24 03:00 101/47 L 11/21/24 03:00 101/47 L 11/21/24 03:00 101/47 L 11/21/24 03:00 101/47 L 11/21/24 03:00 101/47 L 11/21/24 03:00 101/47 L 11/21/24 03:00 101/47 L 11/21/24 03:00 101/47 L 11/21/24 02:54 98.4 F 97 H 15 97 11/21/24 02:51 98.4 F 95 H 20 97 11/21/24 02:48 98.4 F 97 H 20 97 11/21/24 01:36 98.4 F 96 H 28 H 96 11/21/24 01:31 95/56 L 11/21/24 01:31 95/56 L 11/21/24 01:31 95/56 L 11/21/24 01:31 95/56 L 11/21/24 01:18 98.2 F 94 H 17 97 11/21/24 01:15 98.2 F 94 H 17 98 11/21/24 01:15 91/46 L 11/21/24 01:15 91/46 L 11/21/24 01:15 91/46 L 11/21/24 01:15 91/46 L 11/21/24 01:00 98.2 F 95 H 17 96 11/21/24 01:00 94/47 L 11/21/24 01:00 94/47 L 11/21/24 01:00 94/47 L 11/21/24 01:00 94/47 L 11/21/24 01:00 94/47 L 11/21/24 01:00 94/47 L 11/21/24 01:00 94/47 L 11/21/24 01:00 94/47 L 11/21/24 01:00 94/47 L 11/21/24 00:54 97/50 L 11/21/24 00:54 97/50 L 11/21/24 00:54 98.2 F 99 H 21 94 11/21/24 00:50 94/46 L 11/21/24 00:45 98.4 F 100 H 33 H 98 11/21/24 00:42 98.4 F 98 H 20 93 11/21/24 00:17 94/49 L 11/21/24 00:17 94/49 L 11/21/24 00:17 94/49 L 11/21/24 00:17 94/49 L 11/21/24 00:17 94/49 L 11/21/24 00:06 98.4 F 99 H 18 96 11/21/24 00:03 81/45 L 11/21/24 00:03 81/45 L 11/21/24 00:03 81/45 L 11/21/24 00:03 81/45 L 11/21/24 00:01 85/48 L 11/21/24 00:00 98.4 F 104 H 19 96 11/20/24 23:30 98.4 F 102 H 19 95 11/20/24 23:21 98.2 F 106 H 14 94 11/20/24 23:00 133/51 L 11/20/24 23:00 133/51 L 11/20/24 23:00 133/51 L 11/20/24 23:00 133/51 L 11/20/24 23:00 133/51 L 11/20/24 23:00 133/51 L 11/20/24 23:00 133/51 L 11/20/24 23:00 133/51 L 11/20/24 23:00 133/51 L 11/20/24 22:57 102 H Coding Level of Care Code 10368 IN/OBS CONSULT LVL 4,60M Diagnoses Cirrhosis K74.60 Melena K92.1
--- NOTE | 2024-11-21 10:48 | Pharmacy Report ---
Pharmacy Glycemic Short Note 2 - Date of Service November 21, 2024 - Glycemic Short BSG Results (Last 24 hours): 11/20/24 11/20/24 11/20/24 15:16 16:26 17:46 Glucose 617 H* 428 H* POC Glucose 554 H* 11/20/24 11/20/24 11/20/24 19:58 20:43 20:45 Glucose POC Glucose 367 H* 415 H* 370 H* 11/20/24 11/20/24 11/20/24 20:49 23:30 23:31 Glucose 379 H* POC Glucose 382 H* 359 H* 11/21/24 11/21/24 11/21/24 01:26 02:22 05:22 Glucose 270 H 236 H POC Glucose 251 H 11/21/24 05:43 Glucose POC Glucose 246 H OUTPATIENT ANTIDIABETIC REGIMEN: * n/a HbA1C: 10.1% ASSESSMENT: * Pt is a 59 YOM admitted with sepsis, hepatic encephalopathy, and hyperglycemia. No history of DM diagnosis and on no DM medications @ home- A1C 10.1%. Pharmacy consulted to assist with inpatient glycemic management. * BSG on arrival 554mg/dL. Trended down into mid-200s this AM. Insulin drip initiated last evening per DKA protocol although transitioned to SQ quickly given labs not consistent with DKA. Received 15 units of SQ basal and 19 units of bolus insulin last evening. BSG this AM -246mg/dl. * Continues on IV antibiotics and remains NPO. * Continue Lantus 15 units HS (~0.2unit/kg) given continued NPO. Novolog q6 moderate-severe stress scale. PLAN FOR INPATIENT GLYCEMIC CONTROL: * Hold outpatient oral diabetes medications * Basal insulin * Lantus 15 units SQ HS * Bolus insulin * NovoLog per scale ACHS or Q6hrs while NPO * Goal Range: Low 110 mg/dL - High 140 mg/dL * Correction Factor: 25 mg/dL/unit * Nutritional / Prandial insulin per carb ratio of 1 unit per 8 grams CHO consumed
[2024-11-21 12:14] LABS: A calco-baum cmplx NotReported Not Detected (NotDetected); Bact fragilis Not Reported Not Detected (NotDetected); Blood Culture Id Panel See PCR Comment (NotDetected); C auris Not Reported Not Detected (NotDetected); Calbicans Not Reported Not Detected (NotDetected); Candida glabrata Not Reported Not Detected (NotDetected); Candida krusei Not Reported Not Detected (NotDetected); Cneoformans/gatti Not Reported Not Detected (NotDetected); Cparapsilosis Not Reported Not Detected (NotDetected); E cloacae compx Not Reported Not Detected (NotDetected); Efaecalis Not Reported Not Detected (NotDetected); Efaecium Not Reported Not Detected (NotDetected); Enterobacterales Not Reported Not Detected (NotDetected); Escherichia coli Not Reported Not Detected (NotDetected); H influenzae Not Reported Not Detected (NotDetected); K aerogenes Not Reported Not Detected (NotDetected); Koxytoca Not Reported Not Detected (NotDetected); Kpneumoniae grp Not Reported Not Detected (NotDetected); Lmonocyt Not Reported Not Detected (NotDetected); N meningitidis Not Reported Not Detected (NotDetected); P aeruginosa Not Reported Not Detected (NotDetected); Proteus spp Not Reported Not Detected (NotDetected); Salmonella spp Not Reported Not Detected (NotDetected); Staph lugdunensis Not Reported Not Detected (NotDetected); Staph spp. Not Reported DETECTED (NotDetected); Staphaureus Not Reported Not Detected (NotDetected); Staphepi Not Reported Not Detected (NotDetected); Stenmaltophilia Not Reported Not Detected (NotDetected); Strep agal(GrpB) Not Reported Not Detected (NotDetected); Strep pneum Not Reported Not Detected (NotDetected); Strep pyog (GrpA) Not Reported Not Detected (NotDetected); Strep spp Not Reported Not Detected (NotDetected)
[2024-11-21 12:25] LABS: Staphylococcus spp. DETECTED (NotDetected)
--- NOTE | 2024-11-21 14:42 | Electrocardiogram Report ---
Test Reason : Blood Pressure : */* mmHG Vent. 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
--- NOTE | 2024-11-21 16:30 | Hospitalist Progress Note ---
Date of Service November 21, 2024 Assessment & Plan (1) ARF (acute renal failure): (2) Cirrhosis: (3) Sepsis: Plan per previous hospitalist notes with addendum: Pt is a 59yoM with PMhx significant for alcoholism, thrombocytopenia, HTN, history of bilateral hearing loss, congenital cataracts to both eyes who presents from home with family members out of concern for his mental status and inability to move at home. Pt admitted to the ICU. He is currently being treated for the following: Acute Metabolic/Toxic Encephalopathy Multifactorial: Sepsis, Alcoholism, Liver failure Pt altered Hx of alcohol abuse, last drink per family the night before Head CT with past stroke and concerning for sinusitis Ammonia elevated at 85 Alcohol level <10 AWSS protocol Delirium precautions, assistive hearing and visual devices as needed Continue to monitor 4/3 still mostly confused monitor Sepsis with Shock Bacteremia Lower Extremity Wounds Complicated UTI Pt with leukocytosis, tachycardia Procalcitonin elevated Lactate elevated BP initially soft UA suggestive of infection, urine cx pending Blood Cx x 2 sets pending Pt with excoriated healing skin lesions especially on his lower extremities CT head noting sinusitis Continue with IV Zosyn and Daptomycin 4/3 BP still on the lower side Urine culture: no growth so far Blood cultures: gram positive cocci in cluster 1/2 bottles CXR: no acute process continue Dapto + Zosyn Severe Hyperglycemia Pt with noted elevated glucose levels in EPIC from 2023 hemoglobin A1c pending ?[facility] picture ICU hyperglycemia protocol Glycemic consult Fisher Swordfish 11/21 a1c 10.1 continue Lantus + Novolog Cirrhosis/Liver Failure Chronic alcohol use Pt with long history of alcohol abuse Liver enzymes significantly elevated Ammonia level elevated CT abd/pelvis noting worsening cirrhosis and minimal ascites Thiamine and folic acid supplements Monitor for alcohol withdrawal Consider GI consult 4/3 Indirect bilirubinemia still elevated but trending down melena reported, Hg remains at 11 GI consulted recommend to continue Lactulose + Protonix IV BID Acute Kidney Injury Cr elevated at 3.15 on admission IV fluids Avoid nephrotoxic meds as able- hold home lisinopril Consider Nephrology consult 4/3 crea improving from 3.1, now 2.3 continue IV fluids Hyperkalemia K of 6.4 on arrival Received sodium bicarb in the ED Likely in setting of hyperglycemia, renal failure above, lisinopril use Holding home lisinopril Noted EKG changes in the ED Anticipate improvement with glucose control and fluids Improving Continue to monitor resolving Acute on Chronic Hyponatremia Pt with chronic alcohol hx and chronic hyponatremia Also superimposed pseudohyponatremia in setting of hyperglycemia resolving Diet: currently NPO DVT prophylaxis: heparin SQ CODE STATUS: discussed with pt's sister who stated they would want him a full code initially, then decide on status Dispo: admit to the ICU Admission and Anticipated Discharge Date Admission Date: November 20, 2024 Subjective ff up for encephalopathy, etc seen resting in bed, sleeping, comfortable easily awakened but mostly drowsy pleasantly confused, smiling denies pain, shortness of breath no other new symptoms Review of Systems Review of Systems: all noted and negative except for above Physical Exam Physical Exam: General- pleasantly confused, breathing with no effort or accessory muscle use Eyes- anicteric Neck- no JVD Lungs- clear breath sounds bilaterally, no rales/wheezes Heart- normal rate, regular rhythm; no murmurs Abdomen- normal bowel sounds, nondistended, soft, nontender Extremities- (+) multiple scabbed excoriations BL LE with mild edema Neuro- drowsy, mostly confused; no gross focal neurologic deficits Skin- warm & dry Results & Data Results & Data Vital Signs (Past 12 Hours) Vital Signs Temp Pulse Resp BP Pulse Ox O2 Del Method 11/21/24 16:00 99/50 L 11/21/24 16:00 98 H 11/21/24 15:57 37.3 C 98 H 17 96 Room Air 11/21/24 15:00 92/46 L 11/21/24 14:30 37.2 C 113 H 18 95 11/21/24 14:00 37.3 C 96 H 17 11/21/24 14:00 98/49 L 11/21/24 13:03 37.2 C 99 H 17 96 11/21/24 13:00 102/51 L 11/21/24 13:00 102/51 L 11/21/24 12:57 37.2 C 99 H 18 97 11/21/24 12:06 37.2 C 105 H 15 95 11/21/24 12:00 104/54 L 11/21/24 11:45 37.2 C 101 H 16 96 11/21/24 11:04 95/48 L 11/21/24 09:03 37.0 C 90 18 96 Room Air 11/21/24 09:00 99/48 L 11/21/24 08:54 37.0 C 91 H 15 96 11/21/24 08:12 37.0 C 93 H 17 98 11/21/24 08:00 110/54 L 11/21/24 07:48 36.9 C 94 H 16 96 11/21/24 07:23 94 H 11/21/24 07:14 111/55 L 11/21/24 06:45 36.9 C 95 H 18 95 11/21/24 06:30 36.9 C 101 H 18 96 11/21/24 06:24 109/52 L 11/21/24 06:24 109/52 L 11/21/24 06:24 109/52 L 11/21/24 06:24 109/52 L 11/21/24 06:24 109/52 L 11/21/24 06:24 109/52 L 11/21/24 06:24 109/52 L 11/21/24 06:24 109/52 L 11/21/24 06:24 109/52 L 11/21/24 06:24 109/52 L 11/21/24 06:24 109/52 L 11/21/24 06:24 109/52 L 11/21/24 06:24 109/52 L 11/21/24 06:24 109/52 L 11/21/24 06:24 36.9 C 103 H 18 95 11/21/24 06:00 90/47 L 11/21/24 06:00 90/47 L 11/21/24 06:00 90/47 L 11/21/24 06:00 90/47 L 11/21/24 06:00 90/47 L 11/21/24 06:00 90/47 L 11/21/24 06:00 90/47 L 11/21/24 06:00 90/47 L 11/21/24 06:00 36.9 C 101 H 26 H 96 11/21/24 05:54 36.9 C 96 H 21 94 11/21/24 05:36 36.8 C 95 H 17 97 11/21/24 05:03 36.8 C 96 H 27 H 97 11/21/24 05:01 109/52 L 11/21/24 05:01 109/52 L 11/21/24 05:01 109/52 L 11/21/24 05:01 109/52 L 11/21/24 05:01 109/52 L 11/21/24 05:01 109/52 L 11/21/24 05:01 109/52 L 11/21/24 05:01 109/52 L 11/21/24 05:01 109/52 L 11/21/24 05:01 109/52 L 11/21/24 05:01 109/52 L 11/21/24 05:01 109/52 L 11/21/24 05:01 109/52 L 11/21/24 05:01 109/52 L 11/21/24 05:01 109/52 L 11/21/24 05:01 109/52 L 11/21/24 05:01 109/52 L 11/21/24 05:01 109/52 L 11/21/24 05:01 109/52 L 11/21/24 05:01 109/52 L 11/21/24 05:01 109/52 L 11/21/24 04:51 36.8 C 91 H 13 95 11/21/24 04:36 36.7 C 95 H 15 96 11/21/24 04:21 36.7 C 91 H 15 98 all noted and reviewed including below
[2024-11-21] MEDS ORDERED: INSULIN ASPART PER UNIT CHARGE SC SCH (21:00)
[2024-11-21] MEDS: LANTUS PER UNIT CHARGE SC SCH (23:07)
[2024-11-22] MEDS: ALBUMIN 25% 25 GM/100 ML VIAL IV ONE (01:12)
[2024-11-22 06:58] LABS: Basophils # (auto) 0.01 K/uL (0.00-0.20); Basophils % (auto) 0.1 %; Hematocrit (blood only) 28.5 % (42.0-52.0); Hemoglobin 10.2 g/dl (14.0-18.0); Immature Granulocytes # (auto) 0.07 K/uL (0.01-0.20); Immature Granulocytes % (auto) 0.7 %; Lymphocytes # (auto) 1.11 K/uL (1.20-3.40); Lymphocytes % (auto) 11.4 %; Mean Corpuscular Hemoglobin 32.9 pg (25.0-34.0); Mean Corpuscular Hgb Conc 35.8 g/dL (32.0-36.0); Mean Corpuscular Volume 91.9 fL (80.0-100.0); Mean Platelet Volume 13.6 fL (9.4-12.4); Monocytes # (auto) 1.12 K/uL (0.11-0.59); Monocytes % (auto) 11.5 %; Neutrophils # (auto) 7.31 K/uL (1.40-6.50); Neutrophils % (auto) 75.3 %; Platelet Count 60 K/uL (130-400); Platelet Estimate Decreased (Normal); RDW Coefficient of Variation 16.5 % (11.5-14.5); RDW Standard Deviation 54.3 fL (36.4-46.3); White Blood Count 9.72 K/ul (4.8-10.8)
[2024-11-22 07:14] LABS: Albumin Level 2.6 gm/dl (3.4-5.0); Bilirubin Direct 3.6 mg/dl (0-0.2); Bilirubin,Total 7.1 mg/dl (0.2-1.0)
[2024-11-22 07:20] LABS: Total Protein 5.8 gm/dl (6.0-8.3)
[2024-11-22 08:02] LABS: INR 1.2 (0.9-1.1); Prothrombin Time 12.4 Seconds (9.0-12.0)
[2024-11-22] MEDS: LANTUS PER UNIT CHARGE SC SCH (08:36)
[2024-11-22] MEDS: SODIUM CHLORIDE 0.9% 500 ML IV ONE (09:34)
[2024-11-22 09:40] LABS: Calcium 9.8 mg/dl (8.6-10.3); Magnesium 2.2 mg/dl (1.7-2.4); Potassium 4.4 mmol/L (3.5-5.1)
[2024-11-22] MEDS: SODIUM CHLORIDE 0.9% 1,000 ML IV SCH (10:19)
--- NOTE | 2024-11-22 11:48 | Pharmacy Report ---
Pharmacy Glycemic Short Note 2 - Date of Service November 22, 2024 - Glycemic Short BSG Results (Last 24 hours): 11/21/24 11/21/24 11/21/24 11:51 17:13 22:36 Glucose POC Glucose 244 H 266 H 244 H 11/22/24 11/22/24 11/22/24 06:06 07:11 11:34 Glucose 281 H POC Glucose 268 H 273 H OUTPATIENT ANTIDIABETIC REGIMEN: * n/a HbA1C: 10.1% ASSESSMENT: 11/22: * BSGs elevated the last 24h: [id number]/dL. Pt received 15 units of basal and 21 units of bolus insulin yesterday. * Has been NPO until today @ lunch- diet resumed. Continues on IV antibiotics. * Given elevated fasting BSG > 250mg/dL will titrate basal insulin to 0.3unit/kg/day. Novolog tightened at lunch given BSGs likely to increase further with resumption of diet. Will add overnight checks. 11/21: * Pt is a 59 YOM admitted with sepsis, hepatic encephalopathy, and hyperglycemia. No history of DM diagnosis and on no DM medications @ home- A1C 10.1%. Pharmacy consulted to assist with inpatient glycemic management. * BSG on arrival 554mg/dL. Trended down into mid-200s this AM. Insulin drip initiated last evening per DKA protocol although transitioned to SQ quickly given labs not consistent with DKA. Received 15 units of SQ basal and 19 units of bolus insulin last evening. BSG this AM -246mg/dl. * Continues on IV antibiotics and remains NPO. * Continue Lantus 15 units HS (~0.2unit/kg) given continued NPO. Novolog q6 moderate-severe stress scale. PLAN FOR INPATIENT GLYCEMIC CONTROL: * Hold outpatient oral diabetes medications * Basal insulin * Lantus 10 units SQ qAM + 15 units SQ HS-- reassess basal in AM * Bolus insulin * NovoLog per scale ACHS or Q6hrs while NPO * Goal Range: Low 110 mg/dL - High 140 mg/dL * Correction Factor: 18 mg/dL/unit * Nutritional / Prandial insulin per carb ratio of 1 unit per 7 grams CHO consumed
[2024-11-22] MEDS ORDERED: INSULIN ASPART PER UNIT CHARGE SC SCH (12:00)
[2024-11-22] MEDS: INSULIN ASPART PER UNIT CHARGE SC SCH ×2 (12:53→23:51)
[2024-11-22] MEDS ORDERED: LORazepam 2 MG/1 ML VIAL IV PRN (17:35)
[2024-11-22] MEDS ORDERED: GABAPENTIN 600MG ALCOHOL WITHDRAWAL LOAD PO STA (17:35)
--- NOTE | 2024-11-22 17:35 | Hospitalist Progress Note ---
Date of Service November 22, 2024 Assessment & Plan (1) ARF (acute renal failure): (2) Cirrhosis: (3) Sepsis: Plan per previous hospitalist notes with addendum: Pt is a 59yoM with PMhx significant for alcoholism, thrombocytopenia, HTN, history of bilateral hearing loss, congenital cataracts to both eyes who presents from home with family members out of concern for his mental status and inability to move at home. Pt admitted to the ICU. He is currently being treated for the following: Acute Metabolic/Toxic Encephalopathy Multifactorial: Sepsis, Alcoholism, Liver failure Pt altered Hx of alcohol abuse, last drink per family the night before Head CT with past stroke and concerning for sinusitis Ammonia elevated at 85 Alcohol level <10 AWSS protocol Delirium precautions, assistive hearing and visual devices as needed Continue to monitor 4/3 still mostly confused monitor 11/22 alert, oriented x 3 Sepsis with Shock Bacteremia- Staph hominis Lower Extremity Wounds Pt with leukocytosis, tachycardia Procalcitonin elevated Lactate elevated BP initially soft UA suggestive of infection, urine cx pending Blood Cx x 2 sets pending Pt with excoriated healing skin lesions especially on his lower extremities CT head noting sinusitis Continue with IV Zosyn and Daptomycin / BP still on the lower side Urine culture: no growth so far Blood cultures: gram positive cocci in cluster 1/2 bottles CXR: no acute process CT abd/pelvis: no infection continue Dapto + Zosyn 11/22 Blood culture: Staph hominis 2nd blood culture: pending Urine Cx: Negative continue Dapto + Zosyn for now ID consulted Severe Hyperglycemia Pt with noted elevated [facility] hemoglobin A1c pending ?[facility] picture ICU hyperglycemia protocol Glycemic consult Scanning Coordinator 11/22 a1c 10.1 continue Lantus + Novolog Cirrhosis/Liver Failure Chronic alcohol use Pt with long history of alcohol abuse Liver enzymes significantly elevated Ammonia level elevated CT abd/pelvis noting worsening cirrhosis and minimal ascites Thiamine and folic acid supplements Monitor for alcohol withdrawal Consider GI consult 11/22 Indirect bilirubinemia still elevated but trending down melena reported, Hg remains 11--> 10, no recurrence of melena GI consulted recommend to continue Lactulose + Protonix IV BID monitor LFTs and Hg Acute Kidney Injury Cr elevated at 3.15 on admission IV fluids Avoid nephrotoxic meds as able- hold home lisinopril Consider Nephrology consult 4/3 crea from 3.1, now 2.3 crea 2.5 again continue IV fluids CT Abd/pelvis: no obstruction will consult Nephro Anemia, Thrombocytopenia likely from Sepsis, Alcoholism -- chech peripheral smear anemia panel -- did not received heparin no bleeding -- monitor CBC closely Alcoholism -- start Gabapentin protocol Hyperkalemia K of 6.4 on arrival Received sodium bicarb in the ED Likely in setting of hyperglycemia, renal failure above, lisinopril use Holding home lisinopril Noted EKG changes in the ED Anticipate improvement with glucose control and fluids Improving Continue to monitor resolving Acute on Chronic Hyponatremia Pt with chronic alcohol hx and chronic hyponatremia Also superimposed pseudohyponatremia in setting of hyperglycemia resolving Diet: currently NPO DVT prophylaxis: heparin SQ--> held due to thrombocytopenia CODE STATUS: discussed with pt's sister who stated they would want him a full code initially, then decide on status Dispo: PT/OT eval Admission and Anticipated Discharge Date Admission Date: November 20, 2024 Subjective ff up for encephalopathy, etc seen resting in bed, comfortable alert, oriented x 3, answering questions appropriately states he feels ok overall denies fever/chills, chest pain, shortness of breath no abdominal pain ,nausea/vomiting no leg pain no tremors, hallucinations, etc no other symptoms Review of Systems Review of Systems: all noted and negative except for above Physical Exam Physical Exam: General- oriented x 3, not in distress, speaks in sentences with no effort or accessory muscle use Eyes- anicteric Neck- no JVD Lungs- clear breath sounds bilaterally, no rales/wheezes Heart- normal rate, regular rhythm; no murmurs Abdomen- normal bowel sounds, nondistended, soft, nontender Extremities- no pretibial edema, no calf tenderness (+) scabbed excoriations b/l lower legs no erythema, warmth, tenderness Neuro- alert, oriented x 3; no gross focal neurologic deficits Skin- warm & dry Results & Data Results & Data Vital Signs (Past 12 Hours) Vital Signs Temp Pulse Pulse Resp BP Pulse Ox O2 Del Method 11/22/24 17:04 36.4 C L 100 H 17 103/68 97 Room Air 11/22/24 14:00 96 H 11/22/24 10:49 36.3 C L 88 17 94/64 L 94 Room Air 11/22/24 08:13 36.6 C 96 H 18 95/61 L 93 Room Air 11/22/24 08:00 93 H all noted and reviewed including below
[2024-11-22] MEDS: GABAPENTIN 600 MG TAB PO ONE (18:06)
[2024-11-22] MEDS: GABAPENTIN 100 MG CAP PO SCH (23:41)
[2024-11-23] MEDS ORDERED: LANTUS PER UNIT CHARGE SC SCH (09:00)
[2024-11-23] MEDS: CEFEPIME 1000MG 1,000 MG/10 ML SYR IV SCH (09:18)
[2024-11-23] MEDS: LANTUS PER UNIT CHARGE SC ONE (09:18)
[2024-11-23 09:25] LABS: Basophils # (auto) 0.02 K/uL (0.00-0.20); Basophils % (auto) 0.2 %; Eosinophils # (auto) 0.14 K/uL (0.00-0.50); Eosinophils % (auto) 1.4 %; Hematocrit (blood only) 30.3 % (42.0-52.0); Hemoglobin 10.3 g/dl (14.0-18.0); Immature Granulocytes # (auto) 0.08 K/uL (0.01-0.20); Immature Granulocytes % (auto) 0.8 %; Lymphocytes # (auto) 1.42 K/uL (1.20-3.40); Mean Corpuscular Hemoglobin 32.2 pg (25.0-34.0); Mean Corpuscular Volume 94.7 fL (80.0-100.0); Monocytes % (auto) 8.8 %; Neutrophils # (auto) 7.61 K/uL (1.40-6.50); Neutrophils % (auto) 74.8 %; Platelet Count 72 K/uL (130-400); RDW Coefficient of Variation 16.5 % (11.5-14.5); RDW Standard Deviation 57.5 fL (36.4-46.3); White Blood Count 10.17 K/ul (4.8-10.8)
[2024-11-23 09:38] LABS: Albumin Level 2.7 gm/dl (3.4-5.0); BUN Creatinine Ratio 27.3 (10-20); Bilirubin,Total 6.1 mg/dl (0.2-1.0); Creatinine Clr Calc Pharmacy 41.3 ml/min; Magnesium 1.8 mg/dl (1.7-2.4); Phosphorus 2.7 mg/dl (2.5-4.9); Potassium 4.4 mmol/L (3.5-5.1); Total Protein 6.3 gm/dl (6.0-8.3)
[2024-11-23 10:03] LABS: Folate (Folic Acid),Ser orPlas > 22.30 ng/ml (>5.38)
[2024-11-23 10:04] LABS: Vitamin B12 1378 pg/ml (180-914)
[2024-11-23 12:11] LABS: Pappenheimer Bodies 1+; Target Cells 1+
--- NOTE | 2024-11-23 13:14 | Nephrology Consultation ---
Date of Consultation November 23, 2024 Assessment & Plan (1) CEE (acute kidney injury): patient with the acute kidney injury due to ischemic ATN in setting of staph hominis bacteremia. Admission cr 3.1. prior baseline cr 1.2 in January 2024. Cr now at 2.6 today. he is making urine. BP is on the lower side. - will start midodrine 5mg tid. -Monitor input/output -Renally dose meds for current GFR (2) Cirrhosis: he has decompensated cirrhosis with ascites. Will try iv lasix 20mg bid tomorrow if BP is stable (3) Hypotension: Due to sepsis. We are giving midodrine as above. History of Present Illness Reason for Consultation: CEE Requesting Physician: Anil Hutchison MD Attending Physician: Anil Hutchison MD History of Present Illness This is a 59-year-old male with a history of hypertension cover chronic alcohol use, liver cirrhosis add chronic low back pain with the vomiting and weakness on 11/20/24. he was found to have acute kidney injury, hyperkalemia add septic shock. He was admitted in ICU. Admission creatinine was 3.1 and now down to 2.6. He had a creatinine of 1.2 back in January 2024. patient has chronic wounds on both legs. blood cultures are growing Staph hominis. patient is making urine about 2 L yesterday. He denies shortness of breath or pain. Blood pressure is on the lower side. CT abdomen showed a cirrhotic liver and ascites. Allergies Allergy/AdvReac Type Severity Reaction Status Date / Time No Known Allergies Allergy Verified 04/04/21 18:18 Home Medications Medication Instructions Recorded Confirmed Type folic acid 1 mg tablet 1 mg PO QAM 05/02/18 11/20/24 History lisinopril 20 mg tablet 20 mg PO QAM 09/13/18 11/20/24 History magnesium chloride 64 mg 64 mg PO BID #60 tabs 06/13/20 11/20/24 Rx (magnesium chloride) tablet,delayed release (Mag 64) aspirin 81 mg tablet,delayed 81 mg PO DAILY 04/04/21 11/20/24 History release albuterol sulfate 90 mcg/actuation 1 puff inhalation DIRECTED PRN 11/20/24 11/20/24 History aerosol inhaler SOB/Wheezing hydroxyzine HCl 50 mg tablet 25 - 50 mg PO Q6H PRN Unknown 11/20/24 11/20/24 History Patient History Medical History (Updated 11/21/24 @ 08:39 by Ronald Whittington MD) Retained ureteral stent Alcohol dependence Social History Smoking Status: Never smoker Second Hand Exposure: No; Do You Dip or Chew Tobacco: Yes; Hx Alcohol Use: Yes Alcohol type: beer Preferred Language: Faroese Communication Ability: Impaired Loom Checker Required: No Beliefs That Will Affect Care: None Current Living Situation: Alone current occupational status: disabled Other Information That Helps Us Care for You: No Feels Safe at Home: Yes Safety Concerns: Feels Safe At This Time Assistive Devices: None Review of Systems 2 Review of Systems: All other systems were reviewed and negative except as noted in HPI Physical Exam 2 Physical Exam: General exam: Appears comfortable, no acute distress HEENT: Pupils are equal and reactive to light Neck: No JVD, neck is supple trachea is midline Respiratory system: Clear breath sounds bilaterally. Gastrointestinal: Abdomen is soft, non distended, non tender, bowel sounds are present CVS: Regular rate and rhythm. No murmurs, rubs or gallops Musculoskeletal: No joint or muscle tenderness Extremities: Non tender, no edema, peripheral pulses are present Neuro: Oriented, no tremors, no focal neurological deficits Skin: Shaun leg wounds Results & Data Vital Signs (Past 12 Hours) Vital Signs Temp Pulse Pulse Resp BP Pulse Ox O2 Del Method 11/23/24 11:12 36.7 C 88 18 99/60 L 97 Room Air 11/23/24 08:00 79 11/23/24 08:00 36.7 C 82 20 105/65 95 Room Air 11/23/24 03:57 36.5 C 83 19 111/97 98 Room Air Laboratory Results 11/23/24 09:04 11/23/24 09:04 WBC 10.17 RBC 3.20 L MCV 94.7 MCH 32.2 MCHC 34.0 RDW Std Deviation 57.5 H RDW Coeff of Martir 16.5 H Plt Count 72 L MPV 13.0 H Phosphorus 2.7 Albumin 2.7 L (3) Hypotension Hypotension type: unspecified hypotension type Qualified Code(s): I95.9 - Hypotension, unspecified
[2024-11-23] MEDS: MIDODRINE HCL 2.5 MG TAB PO SCH (16:54)
--- NOTE | 2024-11-23 17:45 | Hospitalist Progress Note ---
Date of Service November 23, 2024 Assessment & Plan (1) ARF (acute renal failure): (2) Cirrhosis: (3) Sepsis: Plan per previous hospitalist notes with addendum: Pt is a 59yoM with PMhx significant for alcoholism, thrombocytopenia, HTN, history of bilateral hearing loss, congenital cataracts to both eyes who presents from home with family members out of concern for his mental status and inability to move at home. Pt admitted to the ICU. He is currently being treated for the following: Acute Metabolic/Toxic Encephalopathy Multifactorial: Sepsis, Alcoholism, Liver failure Pt altered Hx of alcohol abuse, last drink per family the night before Head CT with past stroke and concerning for sinusitis Ammonia elevated at 85 Alcohol level <10 AWSS protocol Delirium precautions, assistive hearing and visual devices as needed Continue to monitor 4/3 still mostly confused monitor /5 alert, oriented x 3 Sepsis with Shock Bacteremia- Staph hominis Lower Extremity Wounds Pt with leukocytosis, tachycardia Procalcitonin elevated Lactate elevated BP initially soft UA suggestive of infection, urine cx pending Blood Cx x 2 sets pending Pt with excoriated healing skin lesions especially on his lower extremities CT head noting sinusitis Continue with IV Zosyn and Daptomycin / BP still on the lower side Urine culture: no growth so far Blood cultures: gram positive cocci in cluster 1/2 bottles CXR: no acute process CT abd/pelvis: no infection continue Dapto + Zosyn 11/22 Blood culture: Staph hominis 2nd blood culture: pending Urine Cx: Negative continue Dapto + Zosyn for now ID consulted 11/23 Second blood cultures negative so far Afebrile, clinically improving Continue daptomycin plus cefepime for now ID consulted, awaiting recommendations Severe Hyperglycemia Pt with noted elevated glucose levels in EPIC from 2023 hemoglobin A1c pending ?[facility] picture ICU hyperglycemia protocol Glycemic consult 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 Roller Handler 11/22 a1c 10.1 continue Lantus + Novolog 11/23 BSG is 237, 251 Pharmacy glycemic management service on board Cirrhosis/Liver Failure Chronic alcohol use Pt with long history of alcohol abuse Liver enzymes significantly elevated Ammonia level elevated CT abd/pelvis noting worsening cirrhosis and minimal ascites Thiamine and folic acid supplements Monitor for alcohol withdrawal Consider GI consult 11/22 Indirect bilirubinemia still elevated but trending down melena reported, Hg remains 11--> 10, no recurrence of melena GI consulted recommend to continue Lactulose + Protonix IV BID monitor LFTs and Hg /5 LFTs improving Hemoglobin stable, no melena Continue Protonix IV twice daily Continue lactulose Continue to monitor LFTs and hemoglobin Acute Kidney Injury Cr elevated at 3.15 on admission IV fluids Avoid nephrotoxic meds as able- hold home lisinopril Consider Nephrology consult 11/21 crea from 3.1, now 2.3 crea 2.5 again continue IV fluids CT Abd/pelvis: no obstruction will consult Nephro 11/22 Creatinine improving, now 1.8 DC IV fluids Midodrine started Nephrology service consulted Appreciate recommendation Anemia, Thrombocytopenia likely from Sepsis, Alcoholism -- chech peripheral smear anemia panel -- did not received heparin no bleeding -- monitor CBC closely 11/23 Hemoglobin stable, platelets improving Peripheral smear pending Continue to monitor closely Alcoholism -- No overt signs of withdrawal Continue with Gabapentin protocol Hyperkalemia K of 6.4 on arrival Received sodium bicarb in the ED Likely in setting of hyperglycemia, renal failure above, lisinopril use Holding home lisinopril Noted EKG changes in the ED Anticipate improvement with glucose control and fluids Improving Continue to monitor resolving Acute on Chronic Hyponatremia Pt with chronic alcohol hx and chronic hyponatremia Also superimposed pseudohyponatremia in setting of hyperglycemia resolving Diet: currently NPO DVT prophylaxis: heparin SQ--> held due to thrombocytopenia CODE STATUS:full code Dispo: PT/OT eval Admission and Anticipated Discharge Date Admission Date: November 20, 2024 Subjective Follow-up for encephalopathy, bacteremia, hypoglycemia, liver failure, alcohol withdrawal, etc. Seen resting in bed, sitting, watching TV, comfortable Oriented x 3, in good spirits States he feels fine overall Denies cough, shortness of breath, abdominal pain, nausea Denies any bleeding No chest pain, palpitations, dizziness No tremors, sweating, confusion No other new symptoms Review of Systems Review of Systems: all noted and negative except for above Physical Exam Physical Exam: General- oriented x 3, not in distress, speaks in sentences with no effort or accessory muscle use Eyes- anicteric Neck- no JVD Lungs- clear breath sounds bilaterally, no rales/wheezes Heart- normal rate, regular rhythm; no murmurs Abdomen- normal bowel sounds, nondistended, soft, nontender Extremities- Trace lower leg edema, stable excoriations, no erythe ma/warmth/tenderness Neuro- alert, oriented x 3; no gross focal neurologic deficits Skin- warm & dry Results & Data Results & Data Vital Signs (Past 12 Hours) Vital Signs Temp Pulse Pulse Resp BP Pulse Ox O2 Del Method 11/23/24 15:35 37.0 C 97 H 18 119/75 96 Room Air 11/23/24 11:12 36.7 C 88 18 99/60 L 97 Room Air 11/23/24 08:00 79 11/23/24 08:00 36.7 C 82 20 105/65 95 Room Air
[2024-11-23] MEDS: ADVANCED PROBIOTIC 625 MG CAPSULE PO SCH (18:30)
[2024-11-23] MEDS: LANTUS PER UNIT CHARGE SC SCH (21:11)
[2024-11-24] MEDS: GABAPENTIN 600 MG TAB PO SCH (05:11)
[2024-11-24 06:36] LABS: BUN Creatinine Ratio 27.5 (10-20); Calcium 8.9 mg/dl (8.6-10.3); Creatinine Clr Calc Pharmacy 51.9 ml/min; Magnesium 1.7 mg/dl (1.7-2.4); Phosphorus 2.7 mg/dl (2.5-4.9); Potassium 4.4 mmol/L (3.5-5.1)
[2024-11-24] MEDS: THIAMINE HCL 100 MG TAB PO SCH (09:09)
[2024-11-24 09:11] LABS: Basophils # (auto) 0.03 K/uL (0.00-0.20); Basophils % (auto) 0.3 %; Eosinophils # (auto) 0.15 K/uL (0.00-0.50); Eosinophils % (auto) 1.4 %; Hematocrit (blood only) 31.3 % (42.0-52.0); Hemoglobin 10.7 g/dl (14.0-18.0); Immature Granulocytes # (auto) 0.06 K/uL (0.01-0.20); Immature Granulocytes % (auto) 0.6 %; Lymphocytes # (auto) 1.57 K/uL (1.20-3.40); Lymphocytes % (auto) 14.6 %; Mean Corpuscular Hgb Conc 34.2 g/dL (32.0-36.0); Mean Corpuscular Volume 93.7 fL (80.0-100.0); Mean Platelet Volume 12.8 fL (9.4-12.4); Monocytes # (auto) 1.29 K/uL (0.11-0.59); Neutrophils # (auto) 7.65 K/uL (1.40-6.50); Neutrophils % (auto) 71.1 %; Platelet Count 91 K/uL (130-400); RDW Coefficient of Variation 16.6 % (11.5-14.5); RDW Standard Deviation 56.6 fL (36.4-46.3); Red Blood Count 3.34 M/uL (4.70-6.10); White Blood Count 10.75 K/ul (4.8-10.8)
[2024-11-24] MEDS: LANTUS PER UNIT CHARGE SC SCH (09:17)
[2024-11-24] MEDS: FUROSEMIDE INJ 20 MG/2 ML VIAL IV SCH (09:18)
--- NOTE | 2024-11-24 09:51 | Nephrology Progress Note ---
Date of Service November 24, 2024 Assessment & Plan (1) CEE (acute kidney injury): Plan: patient with the acute kidney injury due to ischemic ATN in setting of staph hominis bacteremia. Admission cr 3.1. prior baseline cr 1.2 in January 2024. Cr now at 2.6 today. he is making urine. BP is on the lower side. - will continue midodrine 5mg tid. -Monitor input/output -Renally dose meds for current GFR (2) Cirrhosis: Plan: he has decompensated cirrhosis with ascites. Will start iv lasix 20mg bid and monitor input/output (3) Hypotension: Plan: Due to sepsis. We are giving midodrine as above. Admission and Anticipated Discharge Date Admission Date: November 20, 2024 Subjective Seen for CEE and volume overload. he feels better. No SOB. Has bilateral leg wounds and abdominal swelling Review of Systems 2 Review of Systems: All other systems were reviewed and negative except as noted in HPI Physical Exam 2 Physical Exam: General exam: Appears comfortable, no acute distress HEENT: Pupils are equal and reactive to light Neck: No JVD, neck is supple trachea is midline Respiratory system: Clear breath sounds bilaterally. Gastrointestinal: Abdomen is soft, Moderately distended, non tender, bowel sounds are present CVS: Regular rate and rhythm. No murmurs, rubs or gallops Musculoskeletal: No joint or muscle tenderness Extremities: Non tender, 1+ thigh edema, peripheral pulses are present Neuro: Oriented, no tremors, no focal neurological deficits Skin: Shaun leg wounds Results & Data Vital Signs (Past 12 Hours) Vital Signs Temp Pulse Pulse Resp BP Pulse Ox O2 Del Method 11/24/24 08:26 Room Air 11/24/24 07:19 36.7 C 93 H 18 110/80 95 Room Air 11/24/24 07:12 91 H 11/24/24 04:34 36.7 C 97 H 18 124/75 95 Room Air 11/23/24 23:58 36.9 C 97 H 18 128/71 97 Room Air 11/23/24 21:59 95 H Laboratory Results 11/24/24 05:31 11/24/24 11/24/24 05:31 05:33 WBC 10.75 RBC 3.34 L MCV 93.7 MCH 32.0 MCHC 34.2 RDW Std Deviation 56.6 H RDW Coeff of Martir 16.6 H Plt Count 91 L MPV 12.8 H Phosphorus 2.7 (3) Hypotension Hypotension type: unspecified hypotension type Qualified Code(s): I95.9 - Hypotension, unspecified
--- NOTE | 2024-11-24 15:14 | Hospitalist Progress Note ---
Date of Service November 24, 2024 Assessment & Plan (1) ARF (acute renal failure): (2) Cirrhosis: (3) Sepsis: Plan per previous hospitalist notes with addendum: Pt is a 59yoM with PMhx significant for alcoholism, thrombocytopenia, HTN, history of bilateral hearing loss, congenital cataracts to both eyes who presents from home with family members out of concern for his mental status and inability to move at home. Pt admitted to the ICU. He is currently being treated for the following: Acute Metabolic/Toxic Encephalopathy Multifactorial: Sepsis, Alcoholism, Liver failure Pt altered Hx of alcohol abuse, last drink per family the night before Head CT with past stroke and concerning for sinusitis Ammonia elevated at 85 Alcohol level <10 AWSS protocol Delirium precautions, assistive hearing and visual devices as needed Continue to monitor 11/21 still mostly confused monitor 11/23 alert, oriented x 3 11/24 Oriented x 3, mostly back to baseline mental status Sepsis with Shock Bacteremia- Staph hominis Lower Extremity Wounds Pt with leukocytosis, tachycardia Procalcitonin elevated Lactate elevated BP initially soft UA suggestive of infection, urine cx pending Blood Cx x 2 sets pending Pt with excoriated healing skin lesions especially on his lower extremities CT head noting sinusitis Continue with IV Zosyn and Daptomycin 11/21 BP still on the lower side Urine culture: no growth so far Blood cultures: gram positive cocci in cluster 1/2 bottles CXR: no acute process CT abd/pelvis: no infection continue Dapto + Zosyn 11/22 Blood culture: Staph hominis 2nd blood culture: pending Urine Cx: Negative continue Dapto + Zosyn for now ID consulted 11/23 Second blood cultures negative so far Afebrile, clinically improving Continue daptomycin plus cefepime for now ID consulted, awaiting recommendations 11/24 Remains hemodynamically stable Afebrile for few days now Overall clinically improving Repeat blood cultures: Negative x 48 hours Awaiting ID recommendations Continue daptomycin plus cefepime Severe Hyperglycemia Pt with noted elevated glucose levels in EPIC from 2023 hemoglobin A1c pending ?[facility] picture ICU hyperglycemia protocol Glycemic consult Tie Tamper 11/22 a1c 10.1 continue Lantus + Novolog 11/23 BSG is 237, 251 Pharmacy glycemic management service on board 11/24 Pharmacy glycemic management service on board Cirrhosis/Liver Failure Chronic alcohol use Pt with long history of alcohol abuse Liver enzymes significantly elevated Ammonia level elevated CT abd/pelvis noting worsening cirrhosis and minimal ascites Thiamine and folic acid supplements Monitor for alcohol withdrawal Consider GI consult / Indirect bilirubinemia still elevated but trending down melena reported, Hg remains 11--> 10, no recurrence of melena GI consulted recommend to continue Lactulose + Protonix IV BID monitor LFTs and Hg 4/5 LFTs improving Hemoglobin stable, no melena Continue Protonix IV twice daily Continue lactulose Continue to monitor LFTs and hemoglobin /6 LFTs continue to improve Hemoglobin stable No melena or hematochezia Continue Protonix IV twice a day Lactulose Monitor LFTs and hemoglobin Acute Kidney Injury Cr elevated at 3.15 on admission IV fluids Avoid nephrotoxic meds as able- hold home lisinopril Consider Nephrology consult 11/21 crea from 3.1, now 2.3 crea 2.5 again continue IV fluids CT Abd/pelvis: no obstruction will consult Nephro 11/22 Creatinine improving, now 1.8 DC IV fluids Midodrine started Nephrology service consulted Appreciate recommendation / Creatinine further improving, currently 1.5 midodrine continued Positive lower extremity edema today, Lasix ordered Appreciate nephrology service recommendations Anemia, Thrombocytopenia likely from Sepsis, Alcoholism -- chech peripheral smear anemia panel -- did not received heparin no bleeding -- monitor CBC closely 11/23 Hemoglobin stable, platelets improving Peripheral smear pending Continue to monitor closely / Hemoglobin remained stable around 10-11 for the past 3 days Platelet count further improving, now 91K Peripheral smear pending Continue to monitor CBC Alcoholism -- No overt signs of withdrawal Continue with Gabapentin protocol Hyperkalemia K of 6.4 on arrival Received sodium bicarb in the ED Likely in setting of hyperglycemia, renal failure above, lisinopril use Holding home lisinopril Noted EKG changes in the ED Anticipate improvement with glucose control and fluids Improving Continue to monitor resolving Acute on Chronic Hyponatremia Pt with chronic alcohol hx and chronic hyponatremia Also superimposed pseudohyponatremia in setting of hyperglycemia resolving DVT prophylaxis:Start Lovenox 40 subcu daily CODE STATUS:full code Dispo: PT/OT eval Admission and Anticipated Discharge Date Admission Date: November 20, 2024 Subjective follow-up for encephalopathy, sepsis, bacteremia, Acute renal failure, possible alcoholic hepatitis, etc. Seen resting in bedside chair, comfortable, in good spirits, watching TV States he continues to feel improved overall Denies fevers or chills, headache, dizziness, shortness of breath, cough, ab dominal pain No leg pain No other new symptoms Review of Systems Review of Systems: all noted and negative except for above Physical Exam Physical Exam: General- oriented x 3, not in distress, speaks in sentences with no effort or accessory muscle use Eyes- anicteric Neck- no JVD Lungs- clear breath sounds bilaterally Heart- normal rate, regular rhythm; no murmurs Abdomen- normal bowel sounds, nondistended, soft, nontender Extremities- grade 1 bilateral lower extremity edema, excoriated scabbing wounds, healing well, erythema resolving, no warmth, no tenderness Neuro- alert, oriented x 3; no gross focal neurologic deficits Skin- warm & dry Results & Data Results & Data Vital Signs (Past 12 Hours) Vital Signs Temp Pulse Pulse Resp BP Pulse Ox O2 Del Method 11/24/24 11:24 36.6 C 86 18 107/83 97 Room Air 11/24/24 08:26 Room Air 11/24/24 07:19 36.7 C 93 H 18 110/80 95 Room Air 11/24/24 07:12 91 H 11/24/24 04:34 36.7 C 97 H 18 124/75 95 Room Air all noted and reviewed including below
[2024-11-24] MEDS: ENOXAPARIN INJ 40 MG/0.4 ML SYR SQ SCH (15:59)
[2024-11-25 06:20] LABS: Basophils # (auto) 0.03 K/uL (0.00-0.20); Basophils % (auto) 0.3 %; Eosinophils # (auto) 0.15 K/uL (0.00-0.50); Eosinophils % (auto) 1.6 %; Hematocrit (blood only) 29.1 % (42.0-52.0); Hemoglobin 10.2 g/dl (14.0-18.0); Immature Granulocytes # (auto) 0.08 K/uL (0.01-0.20); Immature Granulocytes % (auto) 0.9 %; Lymphocytes # (auto) 1.71 K/uL (1.20-3.40); Lymphocytes % (auto) 18.3 %; Mean Corpuscular Hemoglobin 32.7 pg (25.0-34.0); Mean Corpuscular Hgb Conc 35.1 g/dL (32.0-36.0); Mean Corpuscular Volume 93.3 fL (80.0-100.0); Mean Platelet Volume 12.7 fL (9.4-12.4); Monocytes # (auto) 1.15 K/uL (0.11-0.59); Monocytes % (auto) 12.3 %; Neutrophils # (auto) 6.22 K/uL (1.40-6.50); Neutrophils % (auto) 66.6 %; Platelet Count 79 K/uL (130-400); RDW Coefficient of Variation 16.3 % (11.5-14.5); RDW Standard Deviation 55.5 fL (36.4-46.3); Red Blood Count 3.12 M/uL (4.70-6.10); White Blood Count 9.34 K/ul (4.8-10.8)
[2024-11-25] MEDS: GABAPENTIN 400 MG CAP PO SCH (06:50)
[2024-11-25 09:33] LABS: BUN Creatinine Ratio 28.2 (10-20); Calcium 8.7 mg/dl (8.6-10.3); Creatinine Clr Calc Pharmacy 59.1 ml/min; Potassium 4.3 mmol/L (3.5-5.1)
--- NOTE | 2024-11-25 09:56 | Nephrology Progress Note ---
Date of Service November 25, 2024 Assessment & Plan Admission and Anticipated Discharge Date Admission Date: November 20, 2024 Subjective Assessment & Plan (1) CEE (acute kidney injury): Plan: patient with the acute kidney injury due to ischemic ATN in setting of staph hominis bacteremia. Admission cr 3.1. prior baseline cr 1.2 in January 2024. Cr now at 1.3 today. he is making urine. BP is on the lower side. - will continue midodrine 5mg tid. Stop iv lasix Start lasix 40 bid --PO. discharge on this. No Lisinopril -Monitor input/output -Renally dose meds for current GFR (2) Cirrhosis: Plan: he has decompensated cirrhosis with ascites. monitor input/output has associated hyponatremia--needs lasix (3) Hypotension: Plan: Due to sepsis. We are giving midodrine as above. Subjective Seen for CEE and volume overload. He feels better. No SOB. Has bilateral leg wounds and abdominal swelling. Review of Systems Review of Systems: All other systems were reviewed and negative except as note d in HPI Physical Exam Physical Exam: General exam: Appears comfortable, no acute distress HEENT: Pupils are equal and reactive to light Neck: No JVD, neck is supple trachea is midline Respiratory system: Clear breath sounds bilaterally. Gastrointestinal: Abdomen is soft, Moderately distended, non tender, bowel sounds are present CVS: Regular rate and rhythm. No murmurs, rubs or gallops Musculoskeletal: No joint or muscle tenderness Extremities: 1+ thigh edema, peripheral pulses are present Neuro: Oriented, no tremors, no focal neurological deficits Skin: Shaun leg wounds Results & Data Vital Signs (Past 12 Hours) Vital Signs Temp Pulse Pulse Resp BP Pulse Ox O2 Del Method 11/25/24 08:00 36.7 C 103 H 18 118/80 95 Room Air 11/25/24 07:50 87 11/25/24 04:29 36.6 C 83 18 125/84 97 Room Air 11/25/24 00:55 36.5 C 75 17 135/77 95 Room Air 11/24/24 22:01 73
--- NOTE | 2024-11-25 11:51 | Pharmacy Report ---
Pharmacy Glycemic Short Note 2 - Date of Service November 25, 2024 - Glycemic Short BSG Results (Last 24 hours): 11/24/24 11/24/24 11/24/24 11:20 16:07 20:49 Glucose POC Glucose 279 H 218 H 137 H 11/25/24 11/25/24 05:47 07:25 Glucose 147 H POC Glucose 140 H OUTPATIENT ANTIDIABETIC REGIMEN: * n/a HbA1C: 10.1% ASSESSMENT: 11/25: * BSGs somewhat improved yesterday after basal/bolus changes. BSGs were [phone] mg/dL. Fasting BSG acceptable at 140 mg/dL. * May tighten breakfast and lunchtime CR tomorrow after today's trend assessed. 11/22: * BSGs elevated the last 24h: [phone]/dL. Pt received 15 units of basal and 21 units of bolus insulin yesterday. * Has been NPO until today @ lunch- diet resumed. Continues on IV antibiotics. * Given elevated fasting BSG > 250mg/dL will titrate basal insulin to 0.3unit/kg/day. Novolog tightened at lunch given BSGs likely to increase further with resumption of diet. Will add overnight checks. 11/21: * Pt is a 59 YOM admitted with sepsis, hepatic encephalopathy, and hyperglycemia. No history of DM diagnosis and on no DM medications @ home- A1C 10.1%. Pharmacy consulted to assist with inpatient glycemic management. * BSG on arrival 554mg/dL. Trended down into mid-200s this AM. Insulin drip initiated last evening per DKA protocol although transitioned to SQ quickly given labs not consistent with DKA. Received 15 units of SQ basal and 19 units of bolus insulin last evening. BSG this AM -246mg/dl. * Continues on IV antibiotics and remains NPO. * Continue Lantus 15 units HS (~0.2unit/kg) given continued NPO. Novolog q6 moderate-severe stress scale. PLAN FOR INPATIENT GLYCEMIC CONTROL: * Hold outpatient oral diabetes medications * Basal insulin * Lantus 25 units SQ qAM + scale this evening-0, 5, 10 units SQ HS * Bolus insulin * NovoLog per scale ACHS or Q6hrs while NPO * Goal Range: Low 110 mg/dL - High 140 mg/dL * Correction Factor: 20 mg/dL/unit * Nutritional / Prandial insulin per carb ratio of 1 unit per 6 grams CHO consumed
--- NOTE | 2024-11-25 13:48 | Infectious Disease Consult ---
Date of Service November 25, 2024 Telehealth Information I performed this visit using a real-time telehealth connection between my location and the patients location ([facility]). After connecting through interactive tele-video, patient was identified by name and date of and/or wristband check.Patient (or authorized healthcare textile designs sales representative) was informed that this was a telemedicine visit and it was being conducted confidentially over secure lines. My office door was closed and no one else was present in the room with me.Patient (or authorized healthcare textile designs sales representative) provided consent to proceed with the visit, expressed an understanding of privacy and security of the telemedicine visit, and gave permission to have a hospital textile designs sales representative in the room in order to assist with the visit and to conduct portions of the visit, as needed. I informed the patient (or authorized healthcare textile designs sales representative) that I reviewed their record and presented the opportunity for them to ask any questions regarding the visit today. The patient agreed to participate. Assessment & Plan (1) Positive blood culture: Plan: The significance of S hominis in blood cultures is often low. He did present with leukocytosis and hepatic encephalopathy consistent with an infection though. His UA is not consistent with a UTI and his LE edema and multiple excoriations could have caused some cellulitis and bacteremia. From an infection standpoint he appears markedly better now. No fevers and WBC normalized. Prevention of unintentional self-inflicted scratching may help prevent future infections, as well as controlling his LE edema as best as possible (compression stockings?) I would stop the daptomycin and cefepime. Consider using linezolid 600mg po bid to extend through 11/27/24 and then D/C (7 days total of abx) (2) Cirrhosis: Plan: Patient remains somewhat encephalopathic in the setting of his cirrhosis and CEE. History of Present Illness History of Present Illness Mr. Patino is a 59yo male with a h/o cirrhosis. He was taken to the ED at [facility] on 11/20/24 with encephalopathy and was also diagnosed with CEE. He was admitted to the ICU and thought to possibly have sepsis. He was started on pip-tazo and daptomycin before the pip-tazo was transitioned to cefepime. He has slowly improved since then, more alert and oriented now, but still confused. Overall he is a poor historian. He had difficulty articulating what was happening prior to admission. He just remembers that he felt awful and had to call his cousin. Since being admitted his blood cultures turned positive for S hominis. He denies any pain, N/V, or diarrhea. He is seen today sitting up in chair and on room air. He does note that he has LE swelling and many "scabs." He does admit that he scratches his legs frequently from feeling itchy. He denies any dysuria. Allergies Allergy/AdvReac Type Severity Reaction Status Date / Time No Known Allergies Allergy Verified 04/04/21 18:18 Home Medications Medication Instructions Recorded Confirmed Type folic acid 1 mg tablet 1 mg PO QAM 05/02/18 11/20/24 History lisinopril 20 mg tablet 20 mg PO QAM 09/13/18 11/20/24 History magnesium chloride 64 mg 64 mg PO BID #60 tabs 06/13/20 11/20/24 Rx (magnesium chloride) tablet,delayed release (Mag 64) aspirin 81 mg tablet,delayed 81 mg PO DAILY 04/04/21 11/20/24 History release albuterol sulfate 90 mcg/actuation 1 puff inhalation DIRECTED PRN 11/20/24 11/20/24 History aerosol inhaler SOB/Wheezing hydroxyzine HCl 50 mg tablet 25 - 50 mg PO Q6H PRN Unknown 11/20/24 11/20/24 History Patient History Medical History (Updated 11/25/24 @ 13:56 by Norberto Melo MD) Retained ureteral stent Alcohol dependence Social History Smoking Status: Never smoker Second Hand Exposure: No; Do You Dip or Chew Tobacco: Yes; Hx Alcohol Use: Yes Alcohol type: beer Preferred Language: [place] Communication Ability: Impaired 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: No Beliefs That Will Affect Care: None Current Living Situation: Alone current occupational status: disabled Other Information That Helps Us Care for You: No Feels Safe at Home: Yes Safety Concerns: Feels Safe At This Time Assistive Devices: None Review of Systems Gen No fevers or chills HEENT No WITT or sore throat Resp No SOB CV No chest pain GI No N/V or diarrhea NO dysuria Ext +swelling and "scabs" Neuro +confusion Derm No rash Physical Exam Gen NAD, cooperative with exam HEENT NC AT Resp Normal respirations on RA Ext 2+ edema with some venous stasis changes and multiple excoriations (exam facilitated by nurse) Results & Data Vital Signs (Past 12 Hours) Vital Signs Temp Pulse Pulse Resp BP Pulse Ox O2 Del Method 11/25/24 11:56 36.7 C 92 H 18 121/72 97 Room Air 11/25/24 10:23 Room Air 11/25/24 08:00 36.7 C 103 H 18 118/80 95 Room Air 11/25/24 07:50 87 11/25/24 04:29 36.6 C 83 18 125/84 97 Room Air Laboratory Results Na 130 Creatinine 1.49 WBC 12.7 -> 14 -> 13.35 -> 9.34 Hgb 10.2 Platelets 79 Procal 2.3 on admission ALT 63 Total bili 12.1 UA with 0-5 WBC, 0-[address] abdomen/pelvis from 11/20/24 reviewed by me: cirrhotic liver with minimal ascites Blood cultures 11/20/24 with 2 of 2 bottles S hominis Blood cultures 11/22/24 NGTD
--- NOTE | 2024-11-25 16:33 | Hospitalist Progress Note ---
Date of Service November 25, 2024 Assessment & Plan (1) Alcohol withdrawal: Plan: (1) ARF (acute renal failure): (2) Cirrhosis: (3) Sepsis: Plan per previous hospitalist notes with addendum: Pt is a 59yoM with PMhx significant for alcoholism, thrombocytopenia, HTN, history of bilateral hearing loss, congenital cataracts to both eyes who presents from home with family members out of concern for his mental status and inability to move at home. Pt admitted to the ICU. He is currently being treated for the following: Acute Metabolic/Toxic Encephalopathy Multifactorial: Sepsis, Alcoholism, Liver failure Pt altered Hx of alcohol abuse, last drink per family the night before Head CT with past stroke and concerning for sinusitis Ammonia elevated at 85 Alcohol level <10 AWSS protocol Delirium precautions, assistive hearing and visual devices as needed Continue to monitor 11/21 still mostly confused monitor 11/23 alert, oriented x 3 11/25 Oriented x 3, mostly back to baseline mental status Sepsis with Shock Bacteremia- Staph hominis Lower Extremity Wounds Pt with leukocytosis, tachycardia Procalcitonin elevated Lactate elevated BP initially soft UA suggestive of infection, urine cx pending Blood Cx x 2 sets pending Pt with excoriated healing skin lesions especially on his lower extremities CT head noting sinusitis Continue with IV Zosyn and Daptomycin 11/21 BP still on the lower side Urine culture: no growth so far Blood cultures: gram positive cocci in cluster 1/2 bottles CXR: no acute process CT abd/pelvis: no infection continue Dapto + Zosyn 11/22 Blood culture: Staph hominis 2nd blood culture: pending Urine Cx: Negative continue Dapto + Zosyn for now ID consulted 11/23 Second blood cultures negative so far Afebrile, clinically improving Continue daptomycin plus cefepime for now ID consulted, awaiting recommendations 11/24 Remains hemodynamically stable Afebrile for few days now Overall clinically improving Repeat blood cultures: Negative x 48 hours Awaiting ID recommendations Continue daptomycin plus cefepime 11/25 ID recommendations noted, will transition to linezolid p.o., last day 11/27 Severe Hyperglycemia Pt with noted elevated glucose levels in EPIC from 2023 hemoglobin A1c pending ?[facility] picture ICU hyperglycemia protocol Glycemic consult [employer] 11/22 a1c 10.1 continue Lantus + Novolog 11/23 BSG is 237, 251 Pharmacy glycemic management service on board 11/25 Pharmacy glycemic management service on board Cirrhosis/Liver Failure Chronic alcohol use Pt with long history of alcohol abuse Liver enzymes significantly elevated Ammonia level elevated CT abd/pelvis noting worsening cirrhosis and minimal ascites Thiamine and folic acid supplements Monitor for alcohol withdrawal Consider GI consult 11/22 Indirect bilirubinemia still elevated but trending down melena reported, Hg remains 11--> 10, no recurrence of melena GI consulted recommend to continue Lactulose + Protonix IV BID monitor LFTs and Hg 11/23 LFTs improving Hemoglobin stable, no melena Continue Protonix IV twice daily Continue lactulose Continue to monitor LFTs and hemoglobin 11/24 LFTs continue to improve Hemoglobin stable No melena or hematochezia Continue Protonix IV twice a day Lactulose Monitor LFTs and hemoglobin Acute Kidney Injury Cr elevated at 3.15 on admission IV fluids Avoid nephrotoxic meds as able- hold home lisinopril Consider Nephrology consult 11/21 crea from 3.1, now 2.3 crea 2.5 again continue IV fluids CT Abd/pelvis: no obstruction will consult Nephro 11/22 Creatinine improving, now 1.8 DC IV fluids Midodrine started Nephrology service consulted Appreciate recommendation 11/24 Creatinine further improving, currently 1.5 midodrine continued Positive lower extremity edema today, Lasix ordered Appreciate nephrology service recommendations 11/25 Transition to p.o. Lasix Continue midodrine Anemia, Thrombocytopenia likely from Sepsis, Alcoholism -- chech peripheral smear anemia panel -- did not received heparin no bleeding -- monitor CBC closely 11/23 Hemoglobin stable, platelets improving Peripheral smear pending Continue to monitor closely 11/24 Hemoglobin remained stable around 10-11 for the past 3 days Platelet count further improving, now 91K Peripheral smear pending Continue to monitor CBC 11/25 CBC stable overall Peripheral smear: The findings are that of normocytic anemia, thrombocytopenia and neutrophilia. Cytopenia's are relatively common in cirrhosis. The neutrophilia is consistent with history of sepsis. Monitor CBC while on linezolid Alcoholism -- No overt signs of withdrawal Continue with Gabapentin protocol Hyperkalemia K of 6.4 on arrival Received sodium bicarb in the ED Likely in setting of hyperglycemia, renal failure above, lisinopril use Holding home lisinopril Noted EKG changes in the ED Anticipate improvement with glucose control and fluids Improving Continue to monitor resolving Acute on Chronic Hyponatremia Pt with chronic alcohol hx and chronic hyponatremia Also superimposed pseudohyponatremia in setting of hyperglycemia resolving DVT prophylaxis: Lovenox 40 subcu daily CODE STATUS: full code Dispo: PT/OT eval Admission and Anticipated Discharge Date Admission Date: November 20, 2024 Subjective seen resting in bedside chair, comfortable, not in distress Watching TV Answer questions appropriately States he feels fine overall Denies shortness of breath, chest pain, abdominal pain, fevers or chills, nausea No other new symptom Review of Systems Review of Systems: all noted and negative except for above Physical Exam Physical Exam: General- oriented x 3, not in distress, speaks in sentences with no effort or accessory muscle use Eyes- anicteric Neck- no JVD Lungs- clear breath sounds bilaterally, no rales/wheezes Heart- normal rate, regular rhythm; no murmurs Abdomen- normal bowel sounds, nondistended, soft, nontender Extremities-mild lower extremity edema, scabbed excoriated wounds No warmth/tenderness Neuro- alert, oriented x 3; no gross focal neurologic deficits Skin- warm & dry Results & Data Results & Data Vital Signs (Past 12 Hours) Vital Signs Temp Pulse Pulse Resp BP Pulse Ox O2 Del Method 11/25/24 16:10 36.8 C 71 18 111/77 97 Room Air 11/25/24 14:14 68 11/25/24 11:56 36.7 C 92 H 18 121/72 97 Room Air 11/25/24 10:23 Room Air 11/25/24 08:00 36.7 C 103 H 18 118/80 95 Room Air 11/25/24 07:50 87 11/25/24 04:29 36.6 C 83 18 125/84 97 Room Air all noted and reviewed including below
[2024-11-25] MEDS: FUROSEMIDE 40 MG TAB PO SCH (17:04)
[2024-11-25] MEDS: LINEZOLID 600 MG TAB PO SCH (20:14)
[2024-11-26] MEDS: GABAPENTIN 100 MG CAP PO SCH (05:51)
[2024-11-26 06:16] LABS: Basophils # (auto) 0.03 K/uL (0.00-0.20); Basophils % (auto) 0.4 %; Eosinophils # (auto) 0.11 K/uL (0.00-0.50); Eosinophils % (auto) 1.4 %; Hematocrit (blood only) 27.1 % (42.0-52.0); Hemoglobin 9.6 g/dl (14.0-18.0); Immature Granulocytes # (auto) 0.07 K/uL (0.01-0.20); Immature Granulocytes % (auto) 0.9 %; Lymphocytes # (auto) 1.72 K/uL (1.20-3.40); Lymphocytes % (auto) 21.2 %; Mean Corpuscular Hemoglobin 32.3 pg (25.0-34.0); Mean Corpuscular Hgb Conc 35.4 g/dL (32.0-36.0); Mean Corpuscular Volume 91.2 fL (80.0-100.0); Mean Platelet Volume 12.3 fL (9.4-12.4); Monocytes # (auto) 0.78 K/uL (0.11-0.59); Monocytes % (auto) 9.6 %; Neutrophils # (auto) 5.39 K/uL (1.40-6.50); Neutrophils % (auto) 66.5 %; Platelet Count 77 K/uL (130-400); RDW Coefficient of Variation 15.9 % (11.5-14.5); RDW Standard Deviation 53.2 fL (36.4-46.3); Red Blood Count 2.97 M/uL (4.70-6.10)
[2024-11-26 06:51] LABS: BUN Creatinine Ratio 27.8 (10-20); Calcium 8.4 mg/dl (8.6-10.3); Creatinine Clr Calc Pharmacy 61.2 ml/min; Potassium 3.7 mmol/L (3.5-5.1)
--- NOTE | 2024-11-26 10:40 | Nephrology Progress Note ---
Date of Service November 26, 2024 Assessment & Plan Admission and Anticipated Discharge Date Admission Date: November 20, 2024 Subjective Assessment & Plan (1) CEE (acute kidney injury): Plan: patient with the acute kidney injury due to ischemic ATN in setting of staph hominis bacteremia. Admission cr 3.1. prior baseline cr 1.2 in January 2024. Cr now at 1.3 today. he is making urine. BP is on the lower side. - will continue midodrine 5mg tid. na dropped a bit so give lasix 60 mg iv x 1 with liver cirrhosis will not give urea or salt tab. stop Lasix and instead use demadex 40 bid for better oral dosing in Liver cirrhosis patient. add FFR 1500 ml per day. if na drops further will raise the dose of oral Demadex. No Lisinopril at discharge. stop permanently. -Monitor input/output -Renally dose meds for current GFR (2) Cirrhosis: Plan: he has decompensated cirrhosis with ascites. monitor input/output has associated hyponatremia--needs lasix (3) Hypotension: Plan: Due to sepsis. We are giving midodrine as above. Subjective Seen for CEE and volume overload. He feels better. No SOB. Has bilateral leg wounds and abdominal swelling. Review of Systems Review of Systems: All other systems were reviewed and negative except as noted in HPI Physical Exam Physical Exam: General exam: Appears comfortable, no acute distress HEENT: Pupils are equal and reactive to light Neck: No JVD, neck is supple trachea is midline Respiratory system: Clear breath sounds bilaterally. Gastrointestinal: Abdomen is soft, Moderately distended, non tender, bowel sounds are present CVS: Regular rate and rhythm. No murmurs, rubs or gallops Musculoskeletal: No joint or muscle tenderness Extremities: 1+ thigh edema, peripheral pulses are present Neuro: Oriented, no tremors, no focal neurological deficits Skin: Shaun leg wounds Results & Data Vital Signs (Past 12 Hours) Vital Signs Temp Pulse Pulse Resp BP Pulse Ox O2 Del Method 11/26/24 08:00 36.7 C 97 H 18 110/78 98 Room Air 11/26/24 05:43 104 H 11/26/24 02:25 36.7 C 101 H 18 117/68 95 Room Air
[2024-11-26] MEDS: FUROSEMIDE 40 MG/4 ML VIAL IV ONE (11:01)
[2024-11-26 12:44] LABS: Albumin Level 2.4 gm/dl (3.4-5.0); Bilirubin Direct 1.3 mg/dl (0-0.2); Bilirubin,Total 3.6 mg/dl (0.2-1.0); Total Protein 5.7 gm/dl (6.0-8.3)
[2024-11-26] MEDS: EUCERIN CR 120 GM JAR EXT SCH (12:54)
--- NOTE | 2024-11-26 14:11 | Pharmacy Report ---
Pharmacy Glycemic Short Note 2 - Date of Service November 26, 2024 - Glycemic Short BSG Results (Last 24 hours): 11/25/24 11/25/24 11/26/24 16:00 19:59 05:40 Glucose 165 H POC Glucose 181 H 155 H 11/26/24 11/26/24 07:18 11:23 Glucose POC Glucose 135 H 226 H OUTPATIENT ANTIDIABETIC REGIMEN: * n/a HbA1C: 10.1% ASSESSMENT: 11/26: * Patient received a total of 55 units of insulin yesterday 3 of which was basal. Fasting BSG within goal at 135 mg/dL today. Will continue current Lantus dosing. * Novolog was tightened for breakfast and lunch today and while there was some improvement noted, CR may need to be tightened further tomorrow. * Abx transitioned to PO linezolid yesterday. 11/25: * BSGs somewhat improved yesterday after basal/bolus changes. BSGs were [id number] mg/dL. Fasting BSG acceptable at 140 mg/dL. * May tighten breakfast and lunchtime CR tomorrow after today's trend assessed. 11/22: * BSGs elevated the last 24h: 452-604-301-273mg/dL. Pt received 15 units of basal and 21 units of bolus insulin yesterday. * Has been NPO until today @ lunch- diet resumed. Continues on IV antibiotics. * Given elevated fasting BSG > 250mg/dL will titrate basal insulin to 0.3unit/kg/day. Novolog tightened at lunch given BSGs likely to increase further with resumption of diet. Will add overnight checks. 11/21: * Pt is a 59 YOM admitted with sepsis, hepatic encephalopathy, and hyperglyc emia. No history of DM diagnosis and on no DM medications @ home- A1C 10.1%. Pharmacy consulted to assist with inpatient glycemic management. * BSG on arrival 554mg/dL. Trended down into mid-200s this AM. Insulin drip initiated last evening per DKA protocol although transitioned to SQ quickly given labs not consistent with DKA. Received 15 units of SQ basal and 19 units of bolus insulin last evening. BSG this AM -246mg/dl. * Continues on IV antibiotics and remains NPO. * Continue Lantus 15 units HS (~0.2unit/kg) given continued NPO. Novolog q6 moderate-severe stress scale. PLAN FOR INPATIENT GLYCEMIC CONTROL: * Hold outpatient oral diabetes medications * Basal insulin * Lantus 25 units SQ qAM + scale this evening-0, 5, 10 units SQ HS * Bolus insulin * NovoLog per scale ACHS or Q6hrs while NPO * Goal Range: Low 110 mg/dL - High 140 mg/dL * Correction Factor: 20 mg/dL/unit * Nutritional / Prandial insulin per carb ratio of 1 unit per 5 (6 for din ner) grams CHO consumed
--- NOTE | 2024-11-26 15:52 | Hospitalist Progress Note ---
Date of Service November 26, 2024 Assessment & Plan (1) Metabolic encephalopathy: (2) Sepsis: (3) Alcohol withdrawal: (4) Liver failure: Plan: (1) Alcohol withdrawal: Plan: (1) ARF (acute renal failure): (2) Cirrhosis: (3) Sepsis: Plan per previous hospitalist notes with addendum: Pt is a 59yoM with PMhx significant for alcoholism, thrombocytopenia, HTN, history of bilateral hearing loss, congenital cataracts to both eyes who presents from home with family members out of concern for his mental status and inability to move at home. Pt admitted to the ICU. Acute Metabolic/Toxic Encephalopathy Multifactorial: Sepsis, Alcoholism, Liver failure Pt altered Hx of alcohol abuse, last drink per family the night before Head CT with past stroke and concerning for sinusitis Ammonia elevated at 85 Alcohol level <10 AWSS protocol Delirium precautions, assistive hearing and visual devices as needed Continue to monitor 11/26 Oriented x 3, to baseline mental status Management of sepsis, alcoholism, liver failure. Below Sepsis with Shock Bacteremia- Staph hominis Lower Extremity Wounds, cellulitis Pt with leukocytosis, tachycardia Procalcitonin elevated Lactate elevated BP initially soft UA suggestive of infection, urine cx pending Blood Cx x 2 Ordered Pt with excoriated healing skin lesions especially on his lower extremities CT head noting sinusitis given IV Zosyn and Daptomycin CXR: no acute process CT abd/pelvis: no infection Blood culture: Staph hominis 2nd blood culture: Negative Urine Cx: Negative 11/26 ID recommendations noted, transitioned to linezolid p.o., last day 11/27 Diabetes type 2 New diagnosis presented with hyperglycemia A1c 10.1 ?[facility] picture ICU hyperglycemia protocol Glycemic consult Transfer Specialist 11/26 Continue with insulin Lantus and insulin Cirrhosis/Liver Failure/ possible alcoholic hepatitis Chronic alcohol use Pt with long history of alcohol abuse Liver enzymes significantly elevated Ammonia level elevated CT abd/pelvis noting worsening cirrhosis and minimal ascites Thiamine and folic acid supplements 11/26 Indirect bilirubinemia still elevated but trending down AST/ALT still trending up repeat ammonia pending melena reported initially, Hg remains ~ 10, no recurrence of melena requested GI to reevaluate the patient if ammonia level normal, DC lactulose Continue Protonix IV twice a day Acute Kidney Injury Cr elevated at 3.15 on admission IV fluids given 11/26 Creatinine further improving, currently 1.2 midodrine continued Positive lower extremity edema today, IV Lasix ordered x 1 dose today, transitioned from PO Lasix to Torsemide Nephro on board Anemia, Thrombocytopenia likely from Sepsis, Alcoholism anemia panel: ok Peripheral smear: The findings are that of normocytic anemia, thrombocytopenia and neutrophilia. Cytopenia's are relatively common in cirrhosis. The neutrophilia is consistent with history of sepsis. did not received heparin 11/26 Hemoglobin remained stable around 10-11 Platelet count remained around 70-90K Monitor CBC while on linezolid Alcoholism -- No overt signs of withdrawal given Gabapentin protocol Hyperkalemia resolved Acute on Chronic Hyponatremia Pt with chronic alcohol hx and chronic hyponatremia Also superimposed pseudohyponatremia in setting of hyperglycemia resolving DVT prophylaxis: Lovenox 40 subcu daily. monitor Plt CODE STATUS: full code Dispo: PT/OT eval transition to acute rehab when cleared by nephrology, GI Admission and Anticipated Discharge Date Admission Date: November 20, 2024 Subjective Follow-up for acute metabolic encephalopathy, possible sepsis, acute renal failure, liver failure/alcoholic hepatitis, etc. Seen resting in bedside chair, comfortable, not in distress Family at the bedside visiting States he feels fine overall Denies shortness of breath, cough No abdominal pain, nausea No leg pain No bleeding No other new symptoms Review of Systems Review of Systems: all noted and negative except for above Physical Exam Physical Exam: General- oriented x 3, not in distress, speaks in sentences with no effort or accessory muscle use Eyes- anicteric Neck- no JVD Lungs- clear breath sounds bilaterally, no rales/wheezes Heart- normal rate, regular rhythm; no murmurs Abdomen- normal bowel sounds, nondistended, soft, nontender Extremities- grade 1 bilateral lower extremity edema, with dry skin, healing excoriated scabbed wounds, no erythema/warmth/tenderness Neuro- alert, oriented x 3; no gross focal neurologic deficits Skin- warm & dry Results & Data Results & Data Vital Signs (Past 12 Hours) Vital Signs Temp Pulse Pulse Resp BP Pulse Ox O2 Del Method 11/26/24 15:48 36.8 C 98 H 18 114/61 96 Room Air 11/26/24 13:08 97 H 11/26/24 11:25 36.7 C 92 H 18 114/90 97 Room Air 11/26/24 08:00 36.7 C 97 H 18 110/78 98 Room Air 11/26/24 05:43 104 H all noted and reviewed including below (4) Liver failure Hepatic coma status: without hepatic coma Liver failure chronicity: subacute Qualified Code(s): K72.00 - Acute and subacute hepatic failure without coma
[2024-11-26] MEDS: TORSEMIDE 20 MG TAB PO SCH (21:03)
[2024-11-26] MEDS: PANTOprazole 40 MG TAB PO SCH (21:03)
[2024-11-27 06:24] LABS: Basophils # (auto) 0.05 K/uL (0.00-0.20); Basophils % (auto) 0.5 %; Eosinophils # (auto) 0.09 K/uL (0.00-0.50); Eosinophils % (auto) 0.8 %; Hematocrit (blood only) 30.8 % (42.0-52.0); Hemoglobin 11.1 g/dl (14.0-18.0); Immature Granulocytes # (auto) 0.12 K/uL (0.01-0.20); Immature Granulocytes % (auto) 1.1 %; Lymphocytes # (auto) 1.95 K/uL (1.20-3.40); Mean Corpuscular Hemoglobin 33.1 pg (25.0-34.0); Mean Corpuscular Volume 91.9 fL (80.0-100.0); Mean Platelet Volume 12.4 fL (9.4-12.4); Monocytes # (auto) 0.98 K/uL (0.11-0.59); Neutrophils # (auto) 7.64 K/uL (1.40-6.50); Neutrophils % (auto) 70.6 %; Platelet Count 110 K/uL (130-400); RDW Coefficient of Variation 16.2 % (11.5-14.5); RDW Standard Deviation 53.9 fL (36.4-46.3); Red Blood Count 3.35 M/uL (4.70-6.10); White Blood Count 10.83 K/ul (4.8-10.8)
[2024-11-27 06:50] LABS: Albumin Level 2.8 gm/dl (3.4-5.0); BUN Creatinine Ratio 23.5 (10-20); Bilirubin Direct 1.4 mg/dl (0-0.2); Bilirubin,Total 4.2 mg/dl (0.2-1.0); Calcium 8.6 mg/dl (8.6-10.3); Creatinine Clr Calc Pharmacy 47.6 ml/min; Potassium 3.1 mmol/L (3.5-5.1); Total Protein 6.8 gm/dl (6.0-8.3)
[2024-11-27] MEDS: FOLIC ACID 1 MG TAB PO SCH (08:11)
[2024-11-27] MEDS: POTASSIUM CHLORIDE CRTAB 20 MEQ TABCR PO STA (08:21)
[2024-11-27] MEDS: LANTUS PER UNIT CHARGE SC SCH (08:22)
--- NOTE | 2024-11-27 10:21 | Nephrology Progress Note ---
Date of Service November 27, 2024 Assessment & Plan Admission and Anticipated Discharge Date Admission Date: November 20, 2024 Subjective Assessment & Plan (1) CEE (acute kidney injury): Plan: patient with the acute kidney injury due to ischemic ATN in setting of staph hominis bacteremia. Admission cr 3.1. prior baseline cr 1.2 in January 2024. Cr now at 1.3 today. he is making urine. BP is on the lower side. - will continue midodrine 5mg tid. na dropped a bit so give lasix 60 mg iv x 1 with liver cirrhosis will not give urea or salt tab. Continue demadex 40 bid for better oral dosing in Liver cirrhosis patient. K is low so will do 20 bid kcl and also add aldactone 25 daily add FFR 1500 ml per day. No Lisinopril at discharge. stop permanently. -Monitor input/output -Renally dose meds for current GFR (2) Cirrhosis: Plan: he has decompensated cirrhosis with ascites. monitor input/output has associated hyponatremia--needs Loop diuretics. Continue Demadex 40 bid and also add Aldactone for k balance. (3) Hypotension: Plan: Due to sepsis. We are giving midodrine as above. Subjective Seen for CEE and volume overload. He feels better. No SOB. Has bilateral leg wounds and abdominal swelling. Review of Systems Review of Systems: All other systems were reviewed and negative except as noted in HPI Physical Exam Physical Exam: General exam: Appears comfortable, no acute distress HEENT: Pupils are equal and reactive to light Neck: No JVD, neck is supple trachea is midline Respiratory system: Clear breath sounds bilaterally. Gastrointestinal: Abdomen is soft, Moderately distended, non tender, bowel sounds are present CVS: Regular rate and rhythm. No murmurs, rubs or gallops Musculoskeletal: No joint or muscle tenderness Extremities: 1+ thigh edema, peripheral pulses are present Neuro: Oriented, no tremors, no focal neurological deficits Skin: Shaun leg wounds Results & Data Vital Signs (Past 12 Hours) Vital Signs Temp Pulse Pulse Resp BP Pulse Ox O2 Del Method 11/27/24 07:36 36.4 C L 110 H 16 112/70 98 Room Air 11/27/24 05:47 105 H 11/27/24 02:56 36.9 C 106 H 18 117/60 94 Room Air 11/26/24 23:04 99 H
[2024-11-27] MEDS: POTASSIUM CHLORIDE CRTAB 20 MEQ TABCR PO SCH (10:58)
[2024-11-27] MEDS: SPIRONOLACTONE 25 MG TAB PO SCH (10:58)
--- NOTE | 2024-11-27 11:11 | Hospitalist Progress Note ---
Date of Service November 27, 2024 Assessment & Plan (1) Metabolic encephalopathy: (2) Sepsis: (3) Alcohol withdrawal: (4) Liver failure: Plan: (1) Alcohol withdrawal: Plan: (1) ARF (acute renal failure): (2) Cirrhosis: (3) Sepsis: Plan per previous hospitalist notes with addendum: Pt is a 59yoM with PMhx significant for alcoholism, thrombocytopenia, HTN, history of bilateral hearing loss, congenital cataracts to both eyes who presents from home with family members out of concern for his mental status and inability to move at home. Pt admitted to the ICU. Acute Metabolic/Toxic Encephalopathy Multifactorial: Sepsis, Alcoholism, Liver failure Pt altered Hx of alcohol abuse, last drink per family the night before Head CT with past stroke and concerning for sinusitis Ammonia elevated at 85 Alcohol level <10 AWSS protocol Delirium precautions, assistive hearing and visual devices as needed Continue to monitor 11/26 Oriented x 3, to baseline mental status Management of sepsis, alcoholism, liver failure. Below Sepsis with Shock Bacteremia- Staph hominis Lower Extremity Wounds, cellulitis Pt with leukocytosis, tachycardia Procalcitonin elevated Lactate elevated BP initially soft UA suggestive of infection, urine cx negat. Blood Cx x 2 Ordered Pt with excoriated healing skin lesions especially on his lower extremities CT head noting sinusitis given IV Zosyn and Daptomycin CXR: no acute process CT abd/pelvis: no infection Blood culture: Staph hominis 2nd blood culture: Negative Urine Cx: Negative 11/26 ID consulted and recommendations noted, transitioned to linezolid p.o., last day 11/27 Diabetes type 2 New diagnosis presented with hyperglycemia A1c 10.1 ?HHS picture ICU hyperglycemia protocol Glycemic consult Tipple Boss 11/26 Continue with insulin Lantus and insulin Cirrhosis/Liver Failure/ possible alcoholic hepatitis Chronic alcohol use Pt with long history of alcohol abuse Liver enzymes significantly elevated Ammonia level elevated CT abd/pelvis noting worsening cirrhosis and minimal ascites Thiamine and folic acid supplements 11/26 Indirect bilirubinemia still elevated but trending down AST/ALT still trending up repeat ammonia pending melena reported initially, Hg remains ~ 10, no recurrence of melena requested GI to reevaluate the patient if ammonia level normal, DC lactulose Continue Protonix IV twice a day 11/27 Pt seen by GI, lactulose stopped, cont. rifaximin. Obtain abd. US and evaluate for ascites Acu te Kidney Injury Cr elevated at 3.15 on admission IV fluids given 11/26 Creatinine further improving, currently 1.2 midodrine continued Positive lower extremity edema today, IV Lasix ordered x 1 dose today, transitioned from PO Lasix to Torsemide Nephro on board 11/27 Na 129, Cr 1.6 Nephrology continues to follow closely cont. torsemide, spironolactone replete K Anemia, Thrombocytopenia likely from Sepsis, Alcoholism anemia panel: ok Peripheral smear: The findings are that of normocytic anemia, thrombocytopenia and neutrophilia. Cytopenia's are relatively common in cirrhosis. The neutrophilia is consistent with history of sepsis. did not received heparin 11/26 Hemoglobin remained stable around 10-11 Platelet count remained around 70-90K Monitor CBC while on linezolid Alcoholism -- No overt signs of withdrawal given Gabapentin protocol Hyperkalemia resolved Acute on Chronic Hyponatremia Pt with chronic alcohol hx and chronic hyponatremia Also superimposed pseudohyponatremia in setting of hyperglycemia resolving DVT prophylaxis: Lovenox 40 subcu daily. monitor Plt CODE STATUS: full code Dispo: PT/OT eval transition to acute rehab when cleared by nephrology, GI Admission and Anticipated Discharge Date Admission Date: November 20, 2024 Subjective Follow-up for acute metabolic encephalopathy, possible sepsis, acute renal failure, liver failure/alcoholic hepatitis, etc. Seen resting in bed, comfortable, not in distress reports LE edema seems worse today Denies chest pain, shortness of breath, or abdominal pain RN at the bedside and discussed with Nephrology and GI saw pt today - diuretics, abd. US today Review of Systems Review of Systems: All systems reviewed & are unremarkable except as noted in Subjective Physical Exam Physical Exam: General- oriented x 3, not in distress, speaks in sentences with no effort or accessory muscle use Eyes- anicteric Neck- no JVD Lungs- clear breath sounds bilaterally, no rales/wheezes Heart- normal rate, regular rhythm; no murmurs Abdomen- normal bowel sounds, nondistended, soft, nontender Extremities- + b/l lower extremity edema, healing excoriated scabbed wounds, no erythema/warmth/tenderness Neuro- alert, oriented x 3; no gross focal neurologic deficits Skin- warm & dry Results & Data Results & Data Vital Signs (Past 12 Hours) Vital Signs Temp Pulse Pulse Resp BP Pulse Ox O2 Del Method 11/27/24 10:21 36.4 C L 112 H 19 120/65 98 Room Air 11/27/24 07:36 36.4 C L 110 H 16 112/70 98 Room Air 11/27/24 05:47 105 H 11/27/24 02:56 36.9 C 106 H 18 117/60 94 Room Air Laboratory Results 11/27/24 11/27/24 11/26/24 Range/Units 07:13 05:41 20:13 WBC 10.83 H (4.8-10.8) K/ul RBC 3.35 L (4.70-6.10) M/uL Hgb 11.1 L (14.0-18.0) g/dl Hct 30.8 L (42.0-52.0) % MCV 91.9 (80.0-100.0) fL MCH 33.1 (25.0-34.0) pg MCHC 36.0 (32.0-36.0) g/dL RDW Std Deviation 53.9 H (36.4-46.3) fL RDW Coeff of Martir 16.2 H (11.5-14.5) % Plt Count 110 L (130-400) K/uL MPV 12.4 (9.4-12.4) fL Immature Gran % (Auto) 1.1 % Neut % (Auto) 70.6 % Lymph % (Auto) 18.0 % Villalba % (Auto) 9.0 % Eos % (Auto) 0.8 % Baso % (Auto) 0.5 % Neut # (Auto) 7.64 H (1.40-6.50) K/uL Lymph # (Auto) 1.95 (1.20-3.40) K/uL Villalba # (Auto) 0.98 H (0.11-0.59) K/uL Eos # (Auto) 0.09 (0.00-0.50) K/uL Baso # (Auto) 0.05 (0.00-0.20) K/uL Immature Gran # (Auto) 0.12 (0.01-0.20) K/uL Sodium 129 L (136-145) mmol/L Potassium 3.1 L (3.5-5.1) mmol/L Chloride 93 L (98-107) mmol/L Carbon Dioxide 28 (21-32) mmol/L Anion Gap 8 (3-11) BUN 38 H (6-23) mg/dl Creatinine 1.62 H D (0.6-1.4) mg/dl Est Cr Clr Drug Dosing 47.6 ml/min eGFR 48.30 BUN/Creatinine Ratio 23.5 H (10-20) Glucose 110 H (70-99(Fasting)) mg/dl POC Glucose 117 H 174 H (70-99) mg/dl Calcium 8.6 (8.6-10.3) mg/dl Total Bilirubin 4.2 H (0.2-1.0) mg/dl Direct Bilirubin 1.4 H (0-0.2) mg/dl AST 129 H (13-39) U/L ALT 113 H (7-52) U/L Alkaline Phosphatase 247 H (34-104) U/L Ammonia (18-72) umol/L Total Protein 6.8 (6.0-8.3) gm/dl Albumin 2.8 L (3.4-5.0) gm/dl 11/26/24 11/26/24 11/26/24 Range/Units 16:34 16:18 11:23 WBC (4.8-10.8) K/ul RBC (4.70-6.10) M/uL Hgb (14.0-18.0) g/dl Hct (42.0-52.0) % MCV (80.0-100.0) fL MCH (25.0-34.0) pg MCHC (32.0-36.0) g/dL RDW Std Deviation (36.4-46.3) fL RDW Coeff of Martir (11.5-14.5) % Plt Count (130-400) K/uL MPV (9.4-12.4) fL Immature Gran % (Auto) % Neut % (Auto) % Lymph % (Auto) % Villalba % (Auto) % Eos % (Auto) % Baso % (Auto) % Neut # (Auto) (1.40-6.50) K/uL Lymph # (Auto) (1.20-3.40) K/uL Villalba # (Auto) (0.11-0.59) K/uL Eos # (Auto) (0.00-0.50) K/uL Baso # (Auto) (0.00-0.20) K/uL Immature Gran # (Auto) (0.01-0.20) K/uL Sodium (136-145) mmol/L Potassium (3.5-5.1) mmol/L Chloride (98-107) mmol/L Carbon Dioxide (21-32) mmol/L Anion Gap (3-11) BUN (6-23) mg/dl Creatinine (0.6-1.4) mg/dl Est Cr Clr Drug Dosing ml/min eGFR BUN/Creatinine Ratio (10-20) Glucose (70-99(Fasting)) mg/dl POC Glucose 198 H 226 H (70-99) mg/dl Calcium (8.6-10.3) mg/dl Total Bilirubin (0.2-1.0) mg/dl Direct Bilirubin (0-0.2) mg/dl AST (13-39) U/L ALT (7-52) U/L Alkaline Phosphatase (34-104) U/L Ammonia 23.0 (18-72) umol/L Total Protein (6.0-8.3) gm/dl Albumin (3.4-5.0) gm/dl 11/26/24 Range/Units 05:40 WBC (4.8-10.8) K/ul RBC (4.70-6.10) M/uL Hgb (14.0-18.0) g/dl Hct (42.0-52.0) % MCV (80.0-100.0) fL MCH (25.0-34.0) pg MCHC (32.0-36.0) g/dL RDW Std Deviation (36.4-46.3) fL RDW Coeff of Martir (11.5-14.5) % Plt Count (130-400) K/uL MPV (9.4-12.4) fL Immature Gran % (Auto) % Neut % (Auto) % Lymph % (Auto) % Villalba % (Auto) % Eos % (Auto) % Baso % (Auto) % Neut # (Auto) (1.40-6.50) K/uL Lymph # (Auto) (1.20-3.40) K/uL Villalba # (Auto) (0.11-0.59) K/uL Eos # (Auto) (0.00-0.50) K/uL Baso # (Auto) (0.00-0.20) K/uL Immature Gran # (Auto) (0.01-0.20) K/uL Sodium (136-145) mmol/L Potassium (3.5-5.1) mmol/L Chloride (98-107) mmol/L Carbon Dioxide (21-32) mmol/L Anion Gap (3-11) BUN (6-23) mg/dl Creatinine (0.6-1.4) mg/dl Est Cr Clr Drug Dosing ml/min eGFR BUN/Creatinine Ratio (10-20) Glucose (70-99(Fasting)) mg/dl POC Glucose (70-99) mg/dl Calcium (8.6-10.3) mg/dl Total Bilirubin 3.6 H (0.2-1.0) mg/dl Direct Bilirubin 1.3 H (0-0.2) mg/dl AST 105 H (13-39) U/L ALT 91 H (7-52) U/L Alkaline Phosphatase 196 H (34-104) U/L Ammonia (18-72) umol/L Total Protein 5.7 L (6.0-8.3) gm/dl Albumin 2.4 L (3.4-5.0) gm/dl Medications Administered Current Inpatient Medications Albuterol (Albuterol Hfa 8 Gm Inhaler) 2 puffs INH Q6H PRN PRN Reason: SOB/Wheezing Stop: 12/20/24 21:48 Dextrose (Dextrose 50% 50 Ml Syringe) 25 - 50 ml IV UD PRN; Protocol PRN Reason: Hypoglycemia Protocol Stop: 12/20/24 20:29 Enoxaparin Sodium (Enoxaparin Inj 40 Mg/0.4 Ml Syr) 40 mg SQ Q24H OLIVIA Stop: 12/24/24 15:14 Last Admin: 11/26/24 15:11 Dose: 40 mg Folic Acid (Folic Acid 1 Mg Tab) 1 mg PO QAM OLIVIA Stop: 12/27/24 08:59 Last Admin: 11/27/24 08:11 Dose: 1 mg Glucagon (Glucagon For Inj 1 Mg Vial) 1 mg SQ UD PRN; Protocol PRN Reason: Hypoglycemia Protocol Stop: 12/20/24 20:29 Glucose (Glucose 40% Gel 15 Gm Tube) 15 - 30 gm PO UD PRN; Protocol PRN Reason: Hypoglycemia Protocol Stop: 12/20/24 20:29 Glucose (Glucose 10 Tab/Tube) 4 - 8 tab PO UD PRN; Protocol PRN Reason: Hypoglycemia Protocol Stop: 12/20/24 20:29 Insulin Aspart (Insulin Aspart Per Unit Charge) 0 units SC ACHS [facility] Stop: 12/22/24 11:44 Last Admin: 11/27/24 08:01 Dose: 10 units Insulin Glargine (Lantus Per Unit Charge) 0 units SC HS [facility]; Protocol Stop: 12/23/24 20:59 Last Admin: 11/26/24 21:02 Dose: 5 units Insulin Glargine (Lantus Per Unit Charge) 30 units SC DAILY [facility] Stop: 12/24/24 08:59 Last Admin: 11/27/24 08:22 Dose: 30 units Lactobacillus Acidophilus (Advanced Probiotic 625 Mg Capsule) 1,250 mg PO DAILY [facility] Stop: 12/23/24 17:59 Last Admin: 11/27/24 08:11 Dose: 1,250 mg Lactulose (Lactulose Syrup 20 Gm/30 Ml Udc) 20 gm PO BID [facility] Stop: 12/20/24 21:44 Last Admin: 11/27/24 08:12 Dose: 20 gm Linezolid (Linezolid 600 Mg Tab) 600 mg PO BID [facility] Stop: 11/27/24 23:59 Last Admin: 11/27/24 08:13 Dose: 600 mg Lorazepam (Lorazepam 1 Mg Tab) 1 mg PO ONE PRN; Protocol PRN Reason: EtoH Withdrawal AWSS 6,7,8,9,10 Lorazepam (Lorazepam 2 Mg/1 Ml Vial) 1 mg IV ONE PRN; Protocol PRN Reason: EtoH Withdrawal AWSS 6-10 Lorazepam (Lorazepam 2 Mg/1 Ml Vial) 1 mg IV ONE PRN; Protocol PRN Reason: EtoH Withdrawal AWSS 6-10 Midodrine (Midodrine Hcl 2.5 Mg Tab) 5 mg PO TID@0800,1200,1700 [facility] Stop: 12/23/24 16:59 Last Admin: 11/27/24 08:09 Dose: 5 mg Miscellaneous (Carbohydrates For Hypoglycemia ) 15 - 30 gm PO UD PRN PRN Reason: Hypoglycemia Treatment Stop: 12/20/24 20:29 Miscellaneous Information (Pharmacy Glycemic Mgmt Consult) 1 each N/A UD PRN; Protocol PRN Reason: Consult Stop: 12/20/24 20:35 Multi-Ingredient Cream (Eucerin Cr 120 Gm Jar) 1 appln EXT BID OLIVIA Stop: 12/26/24 12:29 Last Admin: 11/27/24 08:10 Dose: 1 appln Pantoprazole Sodium (Pantoprazole 40 Mg Tab) 40 mg PO BID OLIVIA Stop: 12/26/24 20:59 Last Admin: 11/27/24 08:13 Dose: 40 mg Potassium Chloride (Potassium Chloride Crtab 20 Meq Tabcr) 20 meq PO BID OLIVIA Stop: 12/27/24 10:29 Last Admin: 11/27/24 10:58 Dose: 20 meq Spironolactone (Spironolactone 25 Mg Tab) 25 mg PO QAM OLIVIA Stop: 12/27/24 10:29 Last Admin: 11/27/24 10:58 Dose: 25 mg Thiamine HCl (Thiamine Hcl 100 Mg Tab) 100 mg PO DAILY [facility] Stop: 12/24/24 08:59 Last Admin: 11/27/24 08:13 Dose: 100 mg Torsemide (Torsemide 20 Mg Tab) 40 mg PO BID OLIVIA Stop: 12/26/24 20:59 Last Admin: 11/27/24 08:14 Dose: 40 mg (4) Liver failure Hepatic coma status: without hepatic coma Liver failure chronicity: subacute Qualified Code(s): K72.00 - Acute and subacute hepatic failure without coma
--- NOTE | 2024-11-27 12:07 | Gastroenterology Progress Note ---
Date of Service November 27, 2024 Assessment & Plan (1) Cirrhosis: (2) Alcohol abuse: Plan - Continue to trend LFTs. - rise in LFTs are likely correlating with underlying infection. WBC worse today as well. - we discussed that he needs to cease ETOH use. - will discuss case further with Dr Sebastian, further recommendations to follow. Admission and Anticipated Discharge Date Admission Date: November 20, 2024 Supervising Physician Co-Signing Physician Notes I saw and examined this patient with our nurse practitioner and agree with her assessment and plan. Clinically improving since admission. I am not overly concerned about the fluctuation in his liver enzymes as they have been slowly normalizing. However appears to have more ascites on exam today. Would recommend an ultrasound and if significant ascites present would do a diagnostic paracentesis to exclude SBP. Recommend switching from lactulose to rifaximin in light of diarrhea. Subjective GI was asked to come back and see patient for rising LFTs. Currently admitted for sepsis, bacteremia - staph hominis, cellulits. He is more alert today than he had been earlier this admission. Having several bowel movements a day with lactulose. no blood or melena. no abdominal pain. GI ROS unremarkable. his WBC are higher today. His sister is at his bedside and notes that his lower extremities look more swollen than previously. She also notes that he was drinking excessively in the past and likely more than the 12-15 beers a day that were reported. 11/26/24 t bili 3.6, d bili 1.3, AST 105, ALT 91, ALK 196. 11/27/24 t bili 4.2, d bili 1.4, AST 129, ALT 113, ALK 247. Review of Systems Review of Systems: All systems reviewed & are unremarkable except as noted in HPI & below Physical Exam Constitutional: WD/WN, vitals as above Respiratory: normal respiratory effort, lungs clear to auscultation Cardiovascular: Rate/Rhythm: regular rate and regular rhythm Gastrointestinal (Abdomen): normal bowel sounds, soft, nontender, no hepatosplenomegaly Psychiatric: Orientation: alert and oriented x 3 Affect: euthymic affect Results & Data Results & Data Vital Signs (Past 12 Hours) Vital Signs Temp Pulse Pulse Resp BP Pulse Ox O2 Del Method 11/27/24 10:21 97.5 F L 112 H 19 120/65 98 Room Air 11/27/24 07:36 97.5 F L 110 H 16 112/70 98 Room Air 11/27/24 05:47 105 H 11/27/24 02:56 98.4 F 106 H 18 117/60 94 Room Air Laboratory Results Laboratory Results - last 48 hr 11/25/24 11/25/24 11/26/24 16:00 19:59 05:40 WBC 8.10 RBC 2.97 L Hgb 9.6 L Hct 27.1 L MCV 91.2 MCH 32.3 MCHC 35.4 RDW Std Deviation 53.2 H RDW Coeff of Martir 15.9 H Plt Count 77 L MPV 12.3 Immature Gran % (Auto) 0.9 Neut % (Auto) 66.5 Lymph % (Auto) 21.2 Morton % (Auto) 9.6 Eos % (Auto) 1.4 Baso % (Auto) 0.4 Neut # (Auto) 5.39 Lymph # (Auto) 1.72 Morton # (Auto) 0.78 H Eos # (Auto) 0.11 Baso # (Auto) 0.03 Immature Gran # (Auto) 0.07 Sodium 129 L Potassium 3.7 Chloride 98 Carbon Dioxide 27 Anion Gap 4 BUN 35 H Creatinine 1.26 Est Cr Clr Drug Dosing 61.2 eGFR 65.29 BUN/Creatinine Ratio 27.8 H Glucose 165 H POC Glucose 181 H 155 H Calcium 8.4 L Total Bilirubin 3.6 H Direct Bilirubin 1.3 H AST 105 H ALT 91 H Alkaline Phosphatase 196 H Ammonia Total Protein 5.7 L Albumin 2.4 L 11/26/24 11/26/24 11/26/24 07:18 11:23 16:18 WBC RBC Hgb Hct MCV MCH MCHC RDW Std Deviation RDW Coeff of Martir Plt Count MPV Immature Gran % (Auto) Neut % (Auto) Lymph % (Auto) Morton % (Auto) Eos % (Auto) Baso % (Auto) Neut # (Auto) Lymph # (Auto) Morton # (Auto) Eos # (Auto) Baso # (Auto) Immature Gran # (Auto) Sodium Potassium Chloride Carbon Dioxide Anion Gap BUN Creatinine Est Cr Clr Drug Dosing eGFR BUN/Creatinine Ratio Glucose POC Glucose 135 H 226 H Calcium Total Bilirubin Direct Bilirubin AST ALT Alkaline Phosphatase Ammonia 23.0 Total Protein Albumin 11/26/24 11/26/24 11/27/24 16:34 20:13 05:41 WBC 10.83 H RBC 3.35 L Hgb 11.1 L Hct 30.8 L MCV 91.9 MCH 33.1 MCHC 36.0 RDW Std Deviation 53.9 H RDW Coeff of Martir 16.2 H Plt Count 110 L MPV 12.4 Immature Gran % (Auto) 1.1 Neut % (Auto) 70.6 Lymph % (Auto) 18.0 Morton % (Auto) 9.0 Eos % (Auto) 0.8 Baso % (Auto) 0.5 Neut # (Auto) 7.64 H Lymph # (Auto) 1.95 Morton # (Auto) 0.98 H Eos # (Auto) 0.09 Baso # (Auto) 0.05 Immature Gran # (Auto) 0.12 Sodium 129 L Potassium 3.1 L Chloride 93 L Carbon Dioxide 28 Anion Gap 8 BUN 38 H Creatinine 1.62 H D Est Cr Clr Drug Dosing 47.6 eGFR 48.30 BUN/Creatinine Ratio 23.5 H Glucose 110 H POC Glucose 198 H 174 H Calcium 8.6 Total Bilirubin 4.2 H Direct Bilirubin 1.4 H AST 129 H ALT 113 H Alkaline Phosphatase 247 H Ammonia Total Protein 6.8 Albumin 2.8 L 11/27/24 11/27/24 07:13 11:09 WBC RBC Hgb Hct MCV MCH MCHC RDW Std Deviation RDW Coeff of Martir Plt Count MPV Immature Gran % (Auto) Neut % (Auto) Lymph % (Auto) Morton % (Auto) Eos % (Auto) Baso % (Auto) Neut # (Auto) Lymph # (Auto) Morton # (Auto) Eos # (Auto) Baso # (Auto) Immature Gran # (Auto) Sodium Potassium Chloride Carbon Dioxide Anion Gap BUN Creatinine Est Cr Clr Drug Dosing eGFR BUN/Creatinine Ratio Glucose POC Glucose 117 H 225 H Calcium Total Bilirubin Direct Bilirubin AST ALT Alkaline Phosphatase Ammonia Total Protein Albumin Coding Level of Care Code 77770 SUB INP/OBS CARE 2/35MIN Diagnoses Cirrhosis K74.60 Alcohol abuse F10.10
--- NOTE | 2024-11-27 14:28 | Pharmacy Report ---
Pharmacy Glycemic Short Note 2 - Date of Service November 27, 2024 - Glycemic Short BSG Results (Last 24 hours): 11/26/24 11/26/24 11/27/24 16:34 20:13 05:41 Glucose 110 H POC Glucose 198 H 174 H 11/27/24 11/27/24 07:13 11:09 Glucose POC Glucose 117 H 225 H OUTPATIENT ANTIDIABETIC REGIMEN: * n/a HbA1C: 10.1% ASSESSMENT: 11/27 * Fasting 117 mg/dL- will continue with 30 units of lantus qAM. SCr increase today- monitor * Lunch BSG continues to be elevated with improved BSGs later in day. Will tighten carb ratio with breakfast and lunch. 11/26: * Patient received a total of 55 units of insulin yesterday 3 of which was basal. Fasting BSG within goal at 135 mg/dL today. Will continue current Lantus dosing. * Novolog was tightened for breakfast and lunch today and while there was some improvement noted, CR may need to be tightened further tomorrow. * Abx transitioned to PO linezolid yesterday. 11/25: * BSGs somewhat improved yesterday after basal/bolus changes. BSGs were [phone] mg/dL. Fasting BSG acceptable at 140 mg/dL. * May tighten breakfast and lunchtime CR tomorrow after today's trend assessed. 11/22: * BSGs elevated the last 24h: [phone]/dL. Pt received 15 units of basal and 21 units of bolus insulin yesterday. * Has been NPO until today @ lunch- diet resumed. Continues on IV antibiotics. * Given elevated fasting BSG > 250mg/dL will titrate basal insulin to 0 .3unit/kg/day. Novolog tightened at lunch given BSGs likely to increase further with resumption of diet. Will add overnight checks. 11/21: * Pt is a 59 YOM admitted with sepsis, hepatic encephalopathy, and hyperglycemia. No history of DM diagnosis and on no DM medications @ home- A1C 10.1%. Pharmacy consulted to assist with inpatient glycemic management. * BSG on arrival 554mg/dL. Trended down into mid-200s this AM. Insulin drip initiated last evening per DKA protocol although transitioned to SQ quickly given labs not consistent with DKA. Received 15 units of SQ basal and 19 units of bolus insulin last evening. BSG this AM -246mg/dl. * Continues on IV antibiotics and remains NPO. * Continue Lantus 15 units HS (~0.2unit/kg) given continued NPO. Novolog q6 moderate-severe stress scale. PLAN FOR INPATIENT GLYCEMIC CONTROL: * Hold outpatient oral diabetes medications * Basal insulin * Lantus 30 units qAM * Bolus insulin * NovoLog per scale ACHS or Q6hrs while NPO * Goal Range: Low 110 mg/dL - High 140 mg/dL * Correction Factor: 20 mg/dL/unit * Nutritional / Prandial insulin per carb ratio of 1 unit per 4.5 (6 for dinner/HS) grams CHO consumed- tighten to 4 with breakfast/lunch tomorrow
--- NOTE | 2024-11-27 15:41 | Ultrasound Report ---
US abdomen ltd ascites CLINICAL HISTORY: assess for ascites COMPARISON STUDY: CT of the abdomen and pelvis November 20, 2024. TECHNIQUE: Sonography of the abdomen and pelvis was performed to assess for ascites. FINDINGS: There is no ascites within the abdomen or pelvis. Bilateral pleural effusions are incidenta lly noted. IMPRESSION: 1. No ascites. 2. Incidentally noted bilateral pleural effusions. ACT 112: Negative or not required by law. Electronically signed by: Junito Foreman M.D. 11/27/2024 3:40 PM
[2024-11-27] MEDS: INSULIN ASPART PER UNIT CHARGE SC SCH (17:26)
[2024-11-27] MEDS: rifAXIMin 550 MG TABLET PO SCH (20:13)
[2024-11-28 07:08] LABS: Hematocrit (blood only) 27.9 % (42.0-52.0); Mean Corpuscular Hemoglobin 33.1 pg (25.0-34.0); Mean Corpuscular Hgb Conc 35.8 g/dL (32.0-36.0); Mean Corpuscular Volume 92.4 fL (80.0-100.0); Mean Platelet Volume 12.2 fL (9.4-12.4); Platelet Count 94 K/uL (130-400); RDW Coefficient of Variation 16.2 % (11.5-14.5); RDW Standard Deviation 54.2 fL (36.4-46.3); Red Blood Count 3.02 M/uL (4.70-6.10); White Blood Count 8.52 K/ul (4.8-10.8)
--- NOTE | 2024-11-28 07:42 | Hospitalist Progress Note ---
Date of Service November 28, 2024 Assessment & Plan (1) Metabolic encephalopathy: (2) Sepsis: (3) Alcohol withdrawal: (4) Liver failure: Plan: (1) Alcohol withdrawal: Plan: (1) ARF (acute renal failure): (2) Cirrhosis: (3) Sepsis: Plan per previous hospitalist notes with addendum: Pt is a 59yoM with PMhx significant for alcoholism, thrombocytopenia, HTN, history of bilateral hearing loss, congenital cataracts to both eyes who presents from home with family members out of concern for his mental status and inability to move at home. Pt admitted to the ICU. Acute Metabolic/Toxic Encephalopathy Multifactorial: Sepsis, Alcoholism, Liver failure Pt altered Hx of alcohol abuse, last drink per family the night before Head CT with past stroke and concerning for sinusitis Ammonia elevated at 85 Alcohol level <10 AWSS protocol Delirium precautions, assistive hearing and visual devices as needed Continue to monitor 11/26 Oriented x 3, to baseline mental status Management of sepsis, alcoholism, liver failure. Below Sepsis with Shock Bacteremia- Staph hominis Lower Extremity Wounds, cellulitis Pt with leukocytosis, tachycardia Procalcitonin elevated Lactate elevated BP initially soft UA suggestive of infection, urine cx negat. Blood Cx x 2 Ordered Pt with excoriated healing skin lesions especially on his lower extremities CT head noting sinusitis given IV Zosyn and Daptomycin CXR: no acute process CT abd/pelvis: no infection Blood culture: Staph hominis 2nd blood culture: Negative Urine Cx: Negative 11/26 ID consulted and recommendations noted, transitioned to linezolid p.o., last day 11/27 Diabetes type 2 New diagnosis presented with hyperglycemia A1c 10.1 ?HHS picture ICU hyperglycemia protocol Glycemic consult [employer] 11/26 Continue with insulin Lantus and insulin Cirrhosis/Liver Failure/ possible alcoholic hepatitis Chronic alcohol use Pt with long history of alcohol abuse Liver enzymes significantly elevated Ammonia level elevated CT abd/pelvis noting worsening cirrhosis and minimal ascites Thiamine and folic acid supplements 11/26 Indirect bilirubinemia still elevated but trending down AST/ALT still trending up repeat ammonia pending melena reported initially, Hg remains ~ 10, no recurrence of melena requested GI to reevaluate the patient if ammonia level normal, DC lactulose Continue Protonix IV twice a day 11/27 Pt seen by GI, lactulose stopped, cont. rifaximin. Obtain abd. US and evaluate for ascites 11/28 No ascites on US. + pl. effusion, CXR obtained - R pl. effusion - pulmonary consulted, no thoracentesis at this time, monitor if symptoms worsen. Discussed w/ ID as well, no need for cont. abx at this time. Acute Kidney Injury, hyponatremia, hypokalemia Cr elevated at 3.15 on admission IV fluids given 11/26 Creatinine further improving, currently 1.2 midodrine continued Positive lower extremity edema today, IV Lasix ordered x 1 dose today, transitioned from PO Lasix to Torsemide Nephro on board 11/27 Na 129, Cr 1.6 Nephrology continues to follow closely cont. torsemide, spironolactone replete K 11/28 Na 133, Cr 1.6 Nephrology continues to follow closely cont. torsemide, spironolactone replete K Anemia, Thrombocytopenia likely from Sepsis, Alcoholism anemia panel: ok Peripheral smear: The findings are that of normocytic anemia, thrombocytopenia and neutrophilia. Cytopenia's are relatively common in cirrhosis. The neutrophilia is consistent with history of sepsis. did not received heparin 11/26 Hemoglobin remained stable around 10-11 Platelet count remained around 70-90K Monitor CBC while on linezolid Alcoholism -- No overt signs of withdrawal given Gabapentin protocol Hyperkalemia resolved Acute on Chronic Hyponatremia Pt with chronic alcohol hx and chronic hyponatremia Also superimposed pseudohyponatremia in setting of hyperglycemia resolving, as above DVT prophylaxis: Lovenox 40 subcu daily. monitor Plt CODE STATUS: full code Dispo: PT/OT eval transition to acute rehab when cleared by nephrology, GI Admission and Anticipated Discharge Date Admission Date: November 20, 2024 Subjective Follow-up for acute metabolic encephalopathy, possible sepsis, acute renal failure, liver failure/alcoholic hepatitis, etc. Seen resting in chair, comfortable, not in distress +LE edema b/l Denies chest pain, shortness of breath, or abdominal pain Family at the bedside and discussed with Nephrology and GI saw pt today , discussed w/ nephrology- needing further diuresis. CXR obtained - R pl. effusion, consulted w/ pulm., will eval. Review of Systems Review of Systems: All systems reviewed & are unremarkable except as noted in Subjective Physical Exam Physical Exam: General- oriented x 3, not in distress, speaks in sentences with no effort or accessory muscle use Eyes- anicteric Neck- no JVD Lungs- clear breath sounds bilaterally, no rales/wheezes Heart- normal rate, regular rhythm; no murmurs Abdomen- normal bowel sounds, nondistended, soft, nontender Extremities- + b/l lower extremity edema, healing excoriated scabbed wounds, no erythema/warmth/tenderness Neuro- alert, oriented x 3; no gross focal neurologic deficits Skin- warm & dry Results & Data Results & Data Vital Signs (Past 12 Hours) Vital Signs Temp Pulse Pulse Resp BP Pulse Ox O2 Del Method 11/28/24 03:05 36.8 C 121 H 20 107/70 95 Room Air 11/28/24 00:00 101 H 11/27/24 22:50 37.0 C 108 H 20 105/59 L 94 Room Air Laboratory Results 11/28/24 11/28/24 11/28/24 Range/Units 11:37 08:48 07:28 WBC (4.8-10.8) K/ul RBC (4.70-6.10) M/uL Hgb (14.0-18.0) g/dl Hct (42.0-52.0) % MCV (80.0-100.0) fL MCH (25.0-34.0) pg MCHC (32.0-36.0) g/dL RDW Std Deviation (36.4-46.3) fL RDW Coeff of Martir (11.5-14.5) % Plt Count (130-400) K/uL MPV (9.4-12.4) fL PT 11.9 (9.0-12.0) Seconds INR 1.1 (0.9-1.1) Sodium (136-145) mmol/L Potassium (3.5-5.1) mmol/L Chloride (98-107) mmol/L Carbon Dioxide (21-32) mmol/L Anion Gap (3-11) BUN (6-23) mg/dl Creatinine (0.6-1.4) mg/dl Est Cr Clr Drug Dosing ml/min eGFR BUN/Creatinine Ratio (10-20) Glucose (70-99(Fasting)) mg/dl POC Glucose 165 H 168 H (70-99) mg/dl Calcium (8.6-10.3) mg/dl Phosphorus (2.5-4.9) mg/dl Magnesium (1.7-2.4) mg/dl Total Bilirubin 3.9 H (0.2-1.0) mg/dl Direct Bilirubin 1.5 H (0-0.2) mg/dl AST 93 H (13-39) U/L ALT 95 H (7-52) U/L Alkaline Phosphatase 234 H (34-104) U/L Total Protein 6.6 (6.0-8.3) gm/dl Albumin 2.8 L (3.4-5.0) gm/dl 11/28/24 11/27/24 11/27/24 Range/Units 06:19 19:57 16:05 WBC 8.52 (4.8-10.8) K/ul RBC 3.02 L (4.70-6.10) M/uL Hgb 10.0 L (14.0-18.0) g/dl Hct 27.9 L (42.0-52.0) % MCV 92.4 (80.0-100.0) fL MCH 33.1 (25.0-34.0) pg MCHC 35.8 (32.0-36.0) g/dL RDW Std Deviation 54.2 H (36.4-46.3) fL RDW Coeff of Martir 16.2 H (11.5-14.5) % Plt Count 94 L (130-400) K/uL MPV 12.2 (9.4-12.4) fL PT (9.0-12.0) Seconds INR (0.9-1.1) Sodium 133 L (136-145) mmol/L Potassium 3.1 L (3.5-5.1) mmol/L Chloride 95 L (98-107) mmol/L Carbon Dioxide 31 (21-32) mmol/L Anion Gap 7 (3-11) BUN 41 H (6-23) mg/dl Creatinine 1.65 H (0.6-1.4) mg/dl Est Cr Clr Drug Dosing 46.7 ml/min eGFR 47.24 BUN/Creatinine Ratio 24.8 H (10-20) Glucose 162 H (70-99(Fasting)) mg/dl POC Glucose 213 H 138 H (70-99) mg/dl Calcium 8.4 L (8.6-10.3) mg/dl Phosphorus 3.3 (2.5-4.9) mg/dl Magnesium 1.1 L (1.7-2.4) mg/dl Total Bilirubin (0.2-1.0) mg/dl Direct Bilirubin (0-0.2) mg/dl AST (13-39) U/L ALT (7-52) U/L Alkaline Phosphatase (34-104) U/L Total Protein (6.0-8.3) gm/dl Albumin (3.4-5.0) gm/dl Medications Administered Current Inpatient Medications Albuterol (Albuterol Hfa 8 Gm Inhaler) 2 puffs INH Q6H PRN PRN Reason: SOB/Wheezing Stop: 12/20/24 21:48 Dextrose (Dextrose 50% 50 Ml Syringe) 25 - 50 ml IV UD PRN; Protocol PRN Reason: Hypoglycemia Protocol Stop: 12/20/24 20:29 Enoxaparin Sodium (Enoxaparin Inj 40 Mg/0.4 Ml Syr) 40 mg SQ Q24H OLIVIA Stop: 12/24/24 15:14 Last Admin: 11/27/24 14:58 Dose: 40 mg Folic Acid (Folic Acid 1 Mg Tab) 1 mg PO QAM OLIVIA Stop: 12/27/24 08:59 Last Admin: 11/27/24 08:11 Dose: 1 mg Glucagon (Glucagon For Inj 1 Mg Vial) 1 mg SQ UD PRN; Protocol PRN Reason: Hypoglycemia Protocol Stop: 12/20/24 20:29 Glucose (Glucose 40% Gel 15 Gm Tube) 15 - 30 gm PO UD PRN; Protocol PRN Reason: Hypoglycemia Protocol Stop: 12/20/24 20:29 Glucose (Glucose 10 Tab/Tube) 4 - 8 tab PO UD PRN; Protocol PRN Reason: Hypoglycemia Protocol Stop: 12/20/24 20:29 Insulin Aspart (Insulin Aspart Per Unit Charge) 0 units SC BID@0730,1130 [facility] Stop: 12/28/24 07:29 Insulin Aspart (Insulin Aspart Per Unit Charge) 0 units SC BID@1630,2100 [facility] Stop: 12/27/24 16:29 Last Admin: 11/27/24 20:07 Dose: 4 units Insulin Glargine (Lantus Per Unit Charge) 30 units SC DAILY OLIVIA Stop: 12/24/24 08:59 Last Admin: 11/27/24 08:22 Dose: 30 units Lactobacillus Acidophilus (Advanced Probiotic 625 Mg Capsule) 1,250 mg PO DAILY [facility] Stop: 12/23/24 17:59 Last Admin: 11/27/24 08:11 Dose: 1,250 mg Lorazepam (Lorazepam 1 Mg Tab) 1 mg PO ONE PRN; Protocol PRN Reason: EtoH Withdrawal AWSS 6,7,8,9,10 Lorazepam (Lorazepam 2 Mg/1 Ml Vial) 1 mg IV ONE PRN; Protocol PRN Reason: EtoH Withdrawal AWSS 6-10 Lorazepam (Lorazepam 2 Mg/1 Ml Vial) 1 mg IV ONE PRN; Protocol PRN Reason: EtoH Withdrawal AWSS 6-10 Midodrine (Midodrine Hcl 2.5 Mg Tab) 5 mg PO TID@0800,1200,1700 [facility] Stop: 12/23/24 16:59 Last Admin: 11/27/24 17:25 Dose: 5 mg Miscellaneous (Carbohydrates For Hypoglycemia ) 15 - 30 gm PO UD PRN PRN Reason: Hypoglycemia Treatment Stop: 12/20/24 20:29 Miscellaneous Information (Pharmacy Glycemic Mgmt Consult) 1 each N/A UD PRN; Protocol PRN Reason: Consult Stop: 12/20/24 20:35 Multi-Ingredient Cream (Eucerin Cr 120 Gm Jar) 1 appln EXT BID [facility] Stop: 12/26/24 12:29 Last Admin: 11/27/24 20:14 Dose: 1 appln Pantoprazole Sodium (Pantoprazole 40 Mg Tab) 40 mg PO BID OLIVIA Stop: 12/26/24 20:59 Last Admin: 11/27/24 20:12 Dose: 40 mg Potassium Chloride (Potassium Chloride Crtab 20 Meq Tabcr) 20 meq PO BID OLIVIA Stop: 12/27/24 10:29 Last Admin: 11/27/24 20:15 Dose: 20 meq Rifaximin (Rifaximin 550 Mg Tablet) 550 mg PO BID [facility] Stop: 12/27/24 20:59 Last Admin: 11/27/24 20:13 Dose: 550 mg Spironolactone (Spironolactone 25 Mg Tab) 25 mg PO QAM OLIVIA Stop: 12/27/24 10:29 Last Admin: 11/27/24 10:58 Dose: 25 mg Thiamine HCl (Thiamine Hcl 100 Mg Tab) 100 mg PO DAILY [facility] Stop: 12/24/24 08:59 Last Admin: 11/27/24 08:13 Dose: 100 mg Torsemide (Torsemide 20 Mg Tab) 40 mg PO BID OLIVIA Stop: 12/26/24 20:59 Last Admin: 11/27/24 20:13 Dose: 40 mg (4) Liver failure Hepatic coma status: without hepatic coma Liver failure chronicity: subacute Qualified Code(s): K72.00 - Acute and subacute hepatic failure without coma
[2024-11-28 07:57] LABS: BUN Creatinine Ratio 24.8 (10-20); Calcium 8.4 mg/dl (8.6-10.3); Creatinine Clr Calc Pharmacy 46.7 ml/min; Magnesium 1.1 mg/dl (1.7-2.4); Phosphorus 3.3 mg/dl (2.5-4.9); Potassium 3.1 mmol/L (3.5-5.1)
[2024-11-28] MEDS: INSULIN ASPART PER UNIT CHARGE SC SCH (08:35)
[2024-11-28 09:38] LABS: Albumin Level 2.8 gm/dl (3.4-5.0); Bilirubin Direct 1.5 mg/dl (0-0.2); Bilirubin,Total 3.9 mg/dl (0.2-1.0); Total Protein 6.6 gm/dl (6.0-8.3)
[2024-11-28 09:49] LABS: INR 1.1 (0.9-1.1); Prothrombin Time 11.9 Seconds (9.0-12.0)
--- NOTE | 2024-11-28 10:34 | XRay Report ---
XR chest 1V portable CLINICAL HISTORY: eval for pl. effusions shortness of breath COMPARISON STUDY: 11/20/2024 FINDINGS: Single view chest demonstrates increased opacity at the right lung base with groundglass op acification of the costophrenic angle consistent with a right pleural effusion associated with either compressive atelectasis or adjacent inflammatory infiltrate. The left lung is clear. There is no lef t-sided effusion. Heart size and pulmonary vascularity are unremarkable. IMPRESSION: Right pleural effusion with either compressive atelectasis or right basilar infiltrate. ACT 112: Negative or not required by law. Electronically signed by: Brooke Eason M.D. 11/28/2024 10:33 AM
[2024-11-28] MEDS: MAGNESIUM SULFATE / D5W 1 GM/100 ML BAG IV ONE (10:35)
--- NOTE | 2024-11-28 10:43 | Nephrology Progress Note ---
Date of Service November 28, 2024 Assessment & Plan Admission and Anticipated Discharge Date Admission Date: November 20, 2024 Subjective Assessment & Plan (1) CEE (acute kidney injury): Plan: patient with the acute kidney injury due to ischemic ATN in setting of staph hominis bacteremia. Admission cr 3.1. prior baseline cr 1.2 in January 2024. Cr now at 1.6 today. he is making urine. BP is on the lower side. - will continue midodrine 5mg tid. na went to 133 today with liver cirrhosis will not give urea or salt tab. Creat has been rising again now for last 2 days but may have to accept a higher baseline creat to keep his volume/edema/Na under better control. K is still low at 3.1 so will raise to 40 bid kcl and also raise aldactone 25 twice daily add FFR 1500 ml per day. No Lisinopril at discharge. stop permanently. -Monitor input/output -Renally dose meds for current GFR (2) Cirrhosis: Plan: he has decompensated cirrhosis with ascites. monitor input/output has associated hyponatremia--needs Loop diuretics. Continue Demadex 40 bid and also add Aldactone for k balance. Subjective Seen for CEE and volume overload and Hyponatremia. He feels better. No SOB. Has bilateral leg wounds and abdominal swelling. Review of Systems Review of Systems: All other systems were reviewed and negative except as noted in HPI Physical Exam Physical Exam: General exam: Appears comfortable, no acute distress HEENT: Pupils are equal and reactive to light Neck: No JVD, neck is supple trachea is midline Respiratory system: Clear breath sounds bilaterally. Gastrointestinal: Abdomen is soft, Moderately distended, non tender, bowel sounds are present CVS: Regular rate and rhythm. No murmurs, rubs or gallops Musculoskeletal: No joint or muscle tenderness Extremities: 1+ thigh edema, peripheral pulses are present Neuro: Oriented, no tremors, no focal neurological deficits Skin: Shaun leg wounds Results & Data Vital Signs (Past 12 Hours) Vital Signs Temp Pulse Pulse Resp BP Pulse Ox O2 Del Method 11/28/24 07:53 36.2 C L 114 H 18 111/73 98 Room Air 11/28/24 03:05 36.8 C 121 H 20 107/70 95 Room Air 11/28/24 00:00 101 H 11/27/24 22:50 37.0 C 108 H 20 105/59 L 94 Room Air
--- NOTE | 2024-11-28 10:45 | Gastroenterology Progress Note ---
Date of Service November 28, 2024 Assessment & Plan (1) Cirrhosis: Plan: LFTs trending downwards again. diarrhea improved with changing lactulose to xifaxan. no ascites seen on US. - continue to trend LFTs. - continue with xifaxan 550mg bid. - ultimately, patient will need to work on ceasing alcohol use. Admission and Anticipated Discharge Date Admission Date: November 20, 2024 Supervising Physician Co-Signing Physician Notes I saw and examined this patient with our nurse practitioner and agree with her assessment and plan. Patient clinically improved more alert. No significant GI symptoms. Diarrhea improved on rifaximin. No significant ascites so no paracentesis. No asterixis no signs of encephalopathy. Liver enzymes stable. Continue present management. Call if any new issues. Subjective Patient tells me he feels well. no GI complaints today. he feels like diarrhea improved with switching lactulose to xifaxan. 11/27/24 t bili 4.2, d bili 1.4, AST 129, ALT 113, ALK 247. 11/28/24 t bili 3.9, d bili 1.5, AST 93, ALT 95, ALK 247 11/27 US no Ascites, b/l plerual effusions Review of Systems Review of Systems: All systems reviewed & are unremarkable except as noted in HPI & below Physical Exam Constitutional: WD/WN, vitals as above Respiratory: normal respiratory effort, lungs clear to auscultation Cardiovascular: Rate/Rhythm: regular rate and regular rhythm Gastrointestinal (Abdomen): normal bowel sounds, soft, nontender, no hepatosplenomegaly Psychiatric: Orientation: alert and oriented x 3 Affect: euthymic affect Results & Data Results & Data Vital Signs (Past 12 Hours) Vital Signs Temp Pulse Pulse Resp BP Pulse Ox O2 Del Method 11/28/24 07:53 97.2 F L 114 H 18 111/73 98 Room Air 11/28/24 03:05 98.2 F 121 H 20 107/70 95 Room Air 11/28/24 00:00 101 H 11/27/24 22:50 98.6 F 108 H 20 105/59 L 94 Room Air Laboratory Results Laboratory Results - last 48 hr 11/26/24 11/26/24 11/26/24 16:18 16:34 20:13 WBC RBC Hgb Hct MCV MCH MCHC RDW Std Deviation RDW Coeff of Martir Plt Count MPV Immature Gran % (Auto) Neut % (Auto) Lymph % (Auto) Harney % (Auto) Eos % (Auto) Baso % (Auto) Neut # (Auto) Lymph # (Auto) Harney # (Auto) Eos # (Auto) Baso # (Auto) Immature Gran # (Auto) PT INR Sodium Potassium Chloride Carbon Dioxide Anion Gap BUN Creatinine Est Cr Clr Drug Dosing eGFR BUN/Creatinine Ratio Glucose POC Glucose 198 H 174 H Calcium Phosphorus Magnesium Total Bilirubin Direct Bilirubin AST ALT Alkaline Phosphatase Ammonia 23.0 Total Protein Albumin 11/27/24 11/27/24 11/27/24 05:41 07:13 11:09 WBC 10.83 H RBC 3.35 L Hgb 11.1 L Hct 30.8 L MCV 91.9 MCH 33.1 MCHC 36.0 RDW Std Deviation 53.9 H RDW Coeff of Martir 16.2 H Plt Count 110 L MPV 12.4 Immature Gran % (Auto) 1.1 Neut % (Auto) 70.6 Lymph % (Auto) 18.0 Harney % (Auto) 9.0 Eos % (Auto) 0.8 Baso % (Auto) 0.5 Neut # (Auto) 7.64 H Lymph # (Auto) 1.95 Harney # (Auto) 0.98 H Eos # (Auto) 0.09 Baso # (Auto) 0.05 Immature Gran # (Auto) 0.12 PT INR Sodium 129 L Potassium 3.1 L Chloride 93 L Carbon Dioxide 28 Anion Gap 8 BUN 38 H Creatinine 1.62 H D Est Cr Clr Drug Dosing 47.6 eGFR 48.30 BUN/Creatinine Ratio 23.5 H Glucose 110 H POC Glucose 117 H 225 H Calcium 8.6 Phosphorus Magnesium Total Bilirubin 4.2 H Direct Bilirubin 1.4 H AST 129 H ALT 113 H Alkaline Phosphatase 247 H Ammonia Total Protein 6.8 Albumin 2.8 L 11/27/24 11/27/24 11/28/24 16:05 19:57 06:19 WBC 8.52 RBC 3.02 L Hgb 10.0 L Hct 27.9 L MCV 92.4 MCH 33.1 MCHC 35.8 RDW Std Deviation 54.2 H RDW Coeff of Martir 16.2 H Plt Count 94 L MPV 12.2 Immature Gran % (Auto) Neut % (Auto) Lymph % (Auto) Harney % (Auto) Eos % (Auto) Baso % (Auto) Neut # (Auto) Lymph # (Auto) Harney # (Auto) Eos # (Auto) Baso # (Auto) Immature Gran # (Auto) PT INR Sodium 133 L Potassium 3.1 L Chloride 95 L Carbon Dioxide 31 Anion Gap 7 BUN 41 H Creatinine 1.65 H Est Cr Clr Drug Dosing 46.7 eGFR 47.24 BUN/Creatinine Ratio 24.8 H Glucose 162 H POC Glucose 138 H 213 H Calcium 8.4 L Phosphorus 3.3 Magnesium 1.1 L Total Bilirubin Direct Bilirubin AST ALT Alkaline Phosphatase Ammonia Total Protein Albumin 11/28/24 11/28/24 11/28/24 07:28 08:48 11:37 WBC RBC Hgb Hct MCV MCH MCHC RDW Std Deviation RDW Coeff of Martir Plt Count MPV Immature Gran % (Auto) Neut % (Auto) Lymph % (Auto) Harney % (Auto) Eos % (Auto) Baso % (Auto) Neut # (Auto) Lymph # (Auto) Harney # (Auto) Eos # (Auto) Baso # (Auto) Immature Gran # (Auto) PT 11.9 INR 1.1 Sodium Potassium Chloride Carbon Dioxide Anion Gap BUN Creatinine Est Cr Clr Drug Dosing eGFR BUN/Creatinine Ratio Glucose POC Glucose 168 H 165 H Calcium Phosphorus Magnesium Total Bilirubin 3.9 H Direct Bilirubin 1.5 H AST 93 H ALT 95 H Alkaline Phosphatase 234 H Ammonia Total Protein 6.6 Albumin 2.8 L Coding Level of Care Code 92942 SUB INP/OBS CARE 25MIN Diagnoses Cirrhosis K74.60
[2024-11-28] MEDS: MAGNESIUM CHLORIDE W/CALCIUM 64MG DELAYED REL TAB PO SCH (12:45)
--- NOTE | 2024-11-28 14:29 | Pulmonary Consultation ---
Date of Consultation November 28, 2024 Assessment & Plan (1) Pleural effusion: Plan Impression: 59-year-old male with cirrhosis admitted with encephalopathy which is improving. He had a chest x-ray performed today which demonstrated a slight increase in the right effusion. He is asymptomatic. Recommendations: 1. Right-sided pleural effusion: Limited thoracic ultrasound was performed today. No significant effusion on the left. A small effusion with some compressive atelectasis is noted on the right. Multiple etiologies possible including cirrhosis, renal failure, fluid overload etc.. Discussed with patient and family members at bedside. Advised that thoracentesis could be considered however the patient is not interested in pursuing invasive procedures in light of his asymptomatic status which I think is reasonable. If the patient should develop symptoms referable to a pleural effusion (hypoxemia, increasing shortness of breath, chest pain or tightness), consideration for having interventional radiology potentially drain the fluid would be appropriate. Initial characterization would be reasonable. If this becomes a long-term issue related to cirrhosis, management would primarily involve TIPS 2. Management of the patient's other medical issues per primary admitting service. Pulmonary will sign off. Feel free to contact us with questions or concerns History of Present Illness Attending Physician: Chano Mcelroy MD History of Present Illness Asked by hospitalist to evaluate this patient with cirrhosis and potential pleural effusions. History is obtained from discussion with the patient as well as family at bedside. The patient is a 59-year-old male with a history of alcohol abuse and cirrhosis. He initially had toxic metabolic encephalopathy was admitted to the ICU. He was transferred to the floor. He had issues with volume status and renal insufficiency and nephrology and GI are both following. A chest x-ray was performed today which revealed a slight increase in the right-sided pleural effusion which prompted pulmonary consultation. The patient states he has having no respiratory issues currently. He is on room air. He denies any shortness of breath. No cough or sputum production. No chest pain or palpitations. He is tolerating diet. He is not happy with his fluid restriction. He is not interested in invasive procedures currently. Allergies Allergy/AdvReac Type Severity Reaction Status Date / Time No Known Allergies Allergy Verified 04/04/21 18:18 Home Medications Medication Instructions Recorded Confirmed Type folic acid 1 mg tablet 1 mg PO QAM 05/02/18 11/20/24 History lisinopril 20 mg tablet 20 mg PO QAM 09/13/18 11/20/24 History magnesium chloride 64 mg 64 mg PO BID #60 tabs 06/13/20 11/20/24 Rx (magnesium chloride) tablet,delayed release (Mag 64) aspirin 81 mg tablet,delayed 81 mg PO DAILY 04/04/21 11/20/24 History release albuterol sulfate 90 mcg/actuation 1 puff inhalation DIRECTED PRN 11/20/24 11/20/24 History aerosol inhaler SOB/Wheezing hydroxyzine HCl 50 mg tablet 25 - 50 mg PO Q6H PRN Unknown 11/20/24 11/20/24 History Patient History Medical History (Updated 11/28/24 @ 14:26 by Johnny Lockett MD) Retained ureteral stent Alcohol dependence Social History Smoking Status: Never smoker Second Hand Exposure: No; Do You Dip or Chew Tobacco: Yes; Hx Alcohol Use: Yes Alcohol type: beer Preferred Language: Hungarian Communication Ability: Impaired Compliance Vice President Required: No Beliefs That Will Affect Care: None Current Living Situation: Alone current occupational status: disabled Other Information That Helps Us Care for You: No Feels Safe at Home: Yes Safety Concerns: Feels Safe At This Time Assistive Devices: None Review of Systems Review of Systems: Please refer to hospitalist note. No additions or deletions Physical Exam Constitutional: WD/WN, vitals as above Respiratory: no respiratory distress, no labored breathing, no cough and not tachypneic Auscultation: + diminished lung sounds Decreased lung sounds with dullness to percussion at the right lung base Cardiovascular: Rate/Rhythm: regular rate and regular rhythm Gastrointestinal (Abdomen): normal bowel sounds, soft, nontender, no hepa tosplenomegaly Psychiatric: Orientation: alert and oriented x 3 Affect: euthymic affect Results & Data Results & Data Vital Signs (Past 12 Hours) Vital Signs Temp Pulse Pulse Resp BP Pulse Ox O2 Del Method 11/28/24 11:15 36.7 C 105 H 20 109/65 98 Room Air 11/28/24 10:00 Room Air 11/28/24 08:00 113 H 11/28/24 07:53 36.2 C L 114 H 18 111/73 98 Room Air 11/28/24 03:05 36.8 C 121 H 20 107/70 95 Room Air Critical Care Results & Data Vital Signs (Past 12 Hours) Vital Signs Temp Pulse Pulse Resp BP Pulse Ox O2 Del Method 11/28/24 11:15 36.7 C 105 H 20 109/65 98 Room Air 11/28/24 10:00 Room Air 11/28/24 08:00 113 H 11/28/24 07:53 36.2 C L 114 H 18 111/73 98 Room Air 11/28/24 03:05 36.8 C 121 H 20 107/70 95 Room Air Lab & Micro Results (Past 24 Hours) RBC 3.02 M/uL (4.70-6.10) L 11/28/24 WBC 8.52 K/ul (4.8-10.8) 11/28/24 Hgb 10.0 g/dl (14.0-18.0) L 11/28/24 Hct 27.9 % (42.0-52.0) L 11/28/24 MCV 92.4 fL (80.0-100.0) 11/28/24 MCH 33.1 pg (25.0-34.0) 11/28/24 MCHC 35.8 g/dL (32.0-36.0) 11/28/24 RDW Standard Deviation 54.2 fL (36.4-46.3) H 11/28/24 RDW Coefficient of Variation 16.2 % (11.5-14.5) H 11/28/24 Plt Count 94 K/uL (130-400) L 11/28/24 MPV 12.2 fL (9.4-12.4) 11/28/24 Na 133 mmol/L (136-145) L 11/28/24 K 3.1 mmol/L (3.5-5.1) L 11/28/24 Cl 95 mmol/L (98-107) L 11/28/24 CO2 31 mmol/L (21-32) 11/28/24 Anion Gap 7 (3-11) 11/28/24 BUN 41 mg/dl (6-23) H 11/28/24 Creatinine 1.65 mg/dl (0.6-1.4) H 11/28/24 BUN/Creatinine Ratio 24.8 (10-20) H 11/28/24 Glu 162 mg/dl (70-99(Fasting)) H 11/28/24 Ca 8.4 mg/dl (8.6-10.3) L 11/28/24 Phosphorus Level 3.3 mg/dl (2.5-4.9) 11/28/24 Total Bilirubin 3.9 mg/dl (0.2-1.0) H 11/28/24 Direct Bilirubin 1.5 mg/dl (0-0.2) H 11/28/24 AST 93 U/L (13-39) H 11/28/24 ALT 95 U/L (7-52) H 11/28/24 Alkaline Phosphatase 234 U/L (34-104) H 11/28/24 TP 6.6 gm/dl (6.0-8.3) 11/28/24 Albumin 2.8 gm/dl (3.4-5.0) L 11/28/24 Mg 1.1 mg/dl (1.7-2.4) L 11/28/24 06:19 Calcium Level 8.4 mg/dl (8.6-10.3) L 11/28/24 06:19 Prothromb Time International Ratio 1.1 (0.9-1.1) 11/28/24 08:4 8 Microbiology 11/22/24 10:09 Aerobic Blood Culture - Final Blood No growth in Aerobic bottle after 5 days. Anaerobic Blood Culture - Final 11/22/24 10:22 Aerobic Blood Culture - Final Blood No growth in Aerobic bottle after 5 days. Anaerobic Blood Culture - Final Diagnostic Findings (Past 24 Hours) Abdomen Ultrasound 11/27/24 14:19 US abdomen ltd ascites CLINICAL HISTORY: assess for ascites COMPARISON STUDY: CT of the abdomen and pelvis November 20, 2024. TECHNIQUE: Sonography of the abdomen and pelvis was performed to assess for ascites. FINDINGS: There is no ascites within the abdomen or pelvis. Bilateral pleural effusions are incidentally noted. IMPRESSION: 1. No ascites. 2. Incidentally noted bilateral pleural effusions. ACT 112: Negative or not required by law. Electronically signed by: Junito Foreman M.D. 11/27/2024 3:40 PM Chest X-Ray 11/28/24 10:14 XR chest 1V portable CLINICAL HISTORY: eval for pl. effusions shortness of breath COMPARISON STUDY: 11/20/2024 FINDINGS: Single view chest demonstrates increased opacity at the right lung base with groundglass opacification of the costophrenic angle consistent with a right pleural effusion associated with either compressive atelectasis or adjacent inflammatory infiltrate. The left lung is clear. There is no left-sided effusion. Heart size and pulmonary vascularity are unremarkable. IMPRESSION: Right pleural effusion with either compressive atelectasis or right basilar infiltrate. ACT 112: Negative or not required by law. Electronically signed by: Brooke Eason M.D. 11/28/2024 10:33 AM I & O Totals 24 Hours 11/27/24 11/28/24 11/29/24 06:59 06:59 06:59 Intake Total 1720 / 1720 1700 / 1700 890 / 890 Output Total 2282 / 2282 Balance -562 / -562 1692 / 1692 890 / 890 Cumulative 11/20/24 14:48 thru 11/28/24 13:25 Intake Total 39333.267 Output Total 82610 Balance 4604.267 RT Ventilator Mngmt (Last Documented) Ventilator Ordered Settings Respiratory Rate 20 11/28/24 11:15 Ventilator - PT Measurements Respiratory Rate 20 PG Care Time/CCT Total # of Minutes Spent Total Time Spent with Patient: Total time spent is greater than 50% in coordination of care (as documented) at patient's floor/unit and/or counseling patient: Coding Level of Care Code 84467 INT INP/OBS CARE 3/75MIN Diagnoses Pleural effusion J90
[2024-11-28] MEDS: POTASSIUM CHLORIDE CRTAB 20 MEQ TABCR PO SCH (20:22)
[2024-11-28] MEDS: SPIRONOLACTONE 25 MG TAB PO SCH (20:25)
[2024-11-29 06:25] LABS: Hematocrit (blood only) 27.7 % (42.0-52.0); Hemoglobin 9.8 g/dl (14.0-18.0); Mean Corpuscular Hemoglobin 32.9 pg (25.0-34.0); Mean Corpuscular Hgb Conc 35.4 g/dL (32.0-36.0); Mean Platelet Volume 10.6 fL (9.4-12.4); Platelet Count 99 K/uL (130-400); RDW Standard Deviation 54.1 fL (36.4-46.3); Red Blood Count 2.98 M/uL (4.70-6.10); White Blood Count 8.23 K/ul (4.8-10.8)
[2024-11-29 06:51] LABS: INR 1.1 (0.9-1.1); Prothrombin Time 11.4 Seconds (9.0-12.0)
[2024-11-29 06:54] LABS: Albumin Globulin Ratio 0.7 (0.9-2); Albumin Level 2.7 gm/dl (3.4-5.0); BUN Creatinine Ratio 23.8 (10-20); Bilirubin,Total 3.8 mg/dl (0.2-1.0); Calcium 8.5 mg/dl (8.6-10.3); Globulin 4.1 gm/dl (2.5-4.0); Magnesium 1.3 mg/dl (1.7-2.4); Phosphorus 3.2 mg/dl (2.5-4.9); Potassium 3.5 mmol/L (3.5-5.1); Total Protein 6.8 gm/dl (6.0-8.3)
[2024-11-29] MEDS: MAGNESIUM SULFATE / D5W 1 GM/100 ML BAG IV ONE (08:21)
[2024-11-29] MEDS: INSULIN ASPART PER UNIT CHARGE SC SCH ×2 (08:23→12:21)
[2024-11-29] MEDS: LANTUS PER UNIT CHARGE SC SCH (08:25)
--- NOTE | 2024-11-29 10:42 | Nephrology Progress Note ---
Date of Service November 29, 2024 Assessment & Plan Admission and Anticipated Discharge Date Admission Date: November 20, 2024 Subjective Assessment & Plan (1) CEE (acute kidney injury): Plan: patient with the acute kidney injury due to ischemic ATN in setting of staph hominis bacteremia. Admission cr 3.1. prior baseline cr 1.2 in January 2024. Cr now at 1.6 today. he is making urine. BP is on the lower side. continue midodrine 5mg tid. na went to 135 today with liver cirrhosis will not give urea or salt tab nor is it needed. good diuresis is enough it seems Creat went up to 1.6 range but stable at that range now for few days. We will have to accept a higher baseline creat to keep his volume/edema/Na under better control. K is better today so conitnue 40 bid kcl and also raise aldactone 25 twice daily. So many new meds needed ! not sure what all he will take as outpt also Slow mag 64 bid--was on his med list before ?? use though FFR 1500 ml per day. Doubt he will do that at home as already wants to drink as much as he wants. No Lisinopril at discharge. stop permanently. Outpt --not sure how it all work !! ? still drinking alcohol and ?? meds. f/u nephrology in 1-2 weeks with CBC, CMP and mag on Saturday 12/02 at PCP office -Monitor input/output -Renally dose meds for current GFR (2) Cirrhosis: Plan: he has decompensated cirrhosis with ascites. monitor input/output has associated hyponatremia--needs Loop diuretics. Continue Demadex 40 bid and also add Aldactone for k balance. Reviewed Pulm note about rt pl eff Subjective Seen for CEE and volume overload and Hyponatremia. He feels better. No SOB. Has bilateral leg wounds and abdominal swelling. Review of Systems Review of Systems: All other systems were reviewed and negative except as noted in HPI Physical Exam Physical Exam: General exam: Appears comfortable, no acute distress HEENT: Pupils are equal and reactive to light Neck: No JVD, neck is supple trachea is midline Respiratory system: Clear breath sounds bilaterally. Gastrointestinal: Abdomen is soft, Moderately distended, non tender, bowel sounds are present CVS: Regular rate and rhythm. No murmurs, rubs or gallops Musculoskeletal: No joint or muscle tenderness Extremities: 1+ thigh edema, peripheral pulses are present Neuro: Oriented, no tremors, no focal neurological deficits Skin: Shaun leg wounds Results & Data Vital Signs (Past 12 Hours) Vital Signs Temp Pulse Resp BP BP Pulse Ox O2 Del Method 11/29/24 07:23 36.7 C 104 H 16 112/65 96 Room Air 11/29/24 03:14 36.6 C 115 H 20 122/72 94 Room Air 11/28/24 23:40 36.8 C 113 H 16 112/71 95 Room Air
--- NOTE | 2024-11-29 12:27 | Pharmacy Report ---
Pharmacy Glycemic Short Note 2 - Date of Service November 29, 2024 - Glycemic Short BSG Results (Last 24 hours): 11/28/24 11/28/24 11/28/24 16:34 20:28 21:05 Glucose POC Glucose 92 55 L* 95 11/29/24 11/29/24 11/29/24 06:04 07:23 11:09 Glucose 147 H POC Glucose 166 H 169 H OUTPATIENT ANTIDIABETIC REGIMEN: * n/a HbA1C: 10.1% ASSESSMENT: 11/29: * BSGs 171-085-10-55-166mg/dL the last 24h. Trending on higher end in the AM/lunch and then low at dinner/HS. Received 30 units of basal and 48 units of bolus insulin yesterday. Hypoglycemic last night at HS. * Given fasting BSGs in 160s the last 2 days, will titrate basal further to 35 units qAM. Novolog breakfast parameters continued/no change. Loosened lunch/dinner/HS given BSGs trending down in the evening. 11/27 * Fasting 117 mg/dL- will continue with 30 units of lantus qAM. SCr increase today- monitor * Lunch BSG continues to be elevated with improved BSGs later in day. Will tighten carb ratio with breakfast and lunch. 11/26: * Patient received a total of 55 units of insulin yesterday 3 of which was basal. Fasting BSG within goal at 135 mg/dL today. Will continue current Lantus dosing. * Novolog was tightened for breakfast and lunch today and while there was some improvement noted, CR may need to be tightened further tomorrow. * Abx transitioned to PO linezolid yesterday. 11/25: * BSGs somewhat improved yesterday after basal/bolus changes. BSGs were [phone] mg/dL. Fasting BSG acceptable at 140 mg/dL. * May tighten breakfast and lunchtime CR tomorrow after today's trend assessed. 11/22: * BSGs elevated the last 24h: 255-068-884-273mg/dL. Pt received 15 units of basal and 21 units of bolus insulin yesterday. * Has been NPO until today @ lunch- diet resumed. Continues on IV antibiotics. * Given elevated fasting BSG > 250mg/dL will titrate basal insulin to 0.3unit/kg/day. Novolog tightened at lunch given BSGs likely to increase further with resumption of diet. Will add overnight checks. 11/21: * Pt is a 59 YOM admitted with sepsis, hepatic encephalopathy, and hyperglycemia. No history of DM diagnosis and on no DM medications @ home- A1C 10.1%. Pharmacy consulted to assist with inpatient glycemic management. * BSG on arrival 554mg/dL. Trended down into mid-200s this AM. Insulin drip initiated last evening per DKA protocol although transitioned to SQ quickly given labs not consistent with DKA. Received 15 units of SQ basal and 19 units of bolus insulin last evening. BSG this AM -246mg/dl. * Continues on IV antibiotics and remains NPO. * Continue Lantus 15 units HS (~0.2unit/kg) given continued NPO. Novolog q6 moderate-severe stress scale. PLAN FOR INPATIENT GLYCEMIC CONTROL: * Hold outpatient oral diabetes medications * Basal insulin * Lantus 35 units qAM * Bolus insulin * NovoLog per scale ACHS or Q6hrs while NPO * Goal Range: Low 110 mg/dL - High 140 mg/dL * Correction Factor: 20 mg/dL/unit (breakfast), 25mg/dl/unit (lunch, dinner, HS) * Nutritional / Prandial insulin per carb ratio of 1 unit per 4 (breakfast), 7 (lunch, dinner, HS) grams CHO consumed
--- NOTE | 2024-11-29 15:46 | Hospitalist Progress Note ---
Date of Service November 29, 2024 Assessment & Plan (1) Metabolic encephalopathy: (2) Sepsis: (3) Alcohol withdrawal: (4) Liver failure: Plan: (1) Alcohol withdrawal: Plan: (1) ARF (acute renal failure): (2) Cirrhosis: (3) Sepsis: Plan per previous hospitalist notes with addendum: Pt is a 59yoM with PMhx significant for alcoholism, thrombocytopenia, HTN, history of bilateral hearing loss, congenital cataracts to both eyes who presents from home with family members out of concern for his mental status and inability to move at home. Pt admitted to the ICU. Acute Metabolic/Toxic Encephalopathy Multifactorial: Sepsis, Alcoholism, Liver failure Pt altered Hx of alcohol abuse, last drink per family the night before Head CT with past stroke and concerning for sinusitis Ammonia elevated at 85 Alcohol level <10 AWSS protocol Delirium precautions, assistive hearing and visual devices as needed Continue to monitor 11/26 Oriented x 3, to baseline mental status Management of sepsis, alcoholism, liver failure. Below Sepsis with Shock Bacteremia- Staph hominis Lower Extremity Wounds, cellulitis Pt with leukocytosis, tachycardia Procalcitonin elevated Lactate elevated BP initially soft UA suggestive of infection, urine cx negat. 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 Continue with insulin Lantus and insulin Cirrhosis/Liver Failure/ possible alcoholic hepatitis Chronic alcohol use Pt with long history of alcohol abuse Liver enzymes significantly elevated Ammonia level elevated CT abd/pelvis noting worsening cirrhosis and minimal ascites Thiamine and folic acid supplements 11/26 Indirect bilirubinemia still elevated but trending down AST/ALT still trending up repeat ammonia pending melena reported initially, Hg remains ~ 10, no recurrence of melena requested GI to reevaluate the patient if ammonia level normal, DC lactulose Continue Protonix IV twice a day 11/27 Pt seen by GI, lactulose stopped, cont. rifaximin. Obtain abd. US and evaluate for ascites 11/28 No ascites on US. + pl. effusion, CXR obtained - R pl. effusion - pulmonary consulted, no thoracentesis at this time, monitor if symptoms worsen. Discussed w/ ID as well, no need for cont. abx at this time. 11/29 Per nephrology - cont. torsemide 40 bid, spironolactone 25 bid, K supplement, Mag supplement Acute Kidney Injury, hyponatremia, hypokalemia Cr elevated at 3.15 on admission IV fluids given 11/26 Creatinine further improving, currently 1.2 midodrine continued Positive lower extremity edema today, IV Lasix ordered x 1 dose today, transitioned from PO Lasix to Torsemide Nephro on board 11/27 Na 129, Cr 1.6 Nephrology continues to follow closely cont. torsemide, spironolactone replete K 11/28 Na 133, Cr 1.6 Nephrology continues to follow closely cont. torsemide, spironolactone replete K Anemia, Thrombocytopenia likely from Sepsis, Alcoholism anemia panel: ok Peripheral smear: The findings are that of normocytic anemia, thrombocytopenia and neutrophilia. Cytopenia's are relatively common in cirrhosis. The neutrophilia is consistent with history of sepsis. did not received heparin 11/26 Hemoglobin remained stable around 05-31 Platelet count remained around 70-90K Monitor CBC while on linezolid Alcoholism -- No overt signs of withdrawal given Gabapentin protocol Hyperkalemia resolved Acute on Chronic Hyponatremia Pt with chronic alcohol hx and chronic hyponatremia Also superimposed pseudohyponatremia in setting of hyperglycemia resolving, as above DVT prophylaxis: Lovenox 40 subcu daily. monitor Plt CODE STATUS: full code Dispo: PT/OT eval transition to acute rehab when cleared by nephrology, GI Admission and Anticipated Discharge Date Admission Date: November 20, 2024 Subjective Follow-up for acute metabolic encephalopathy, possible sepsis, acute renal failure, liver failure/alcoholic hepatitis, etc. Seen resting in chair, comfortable, not in distress +LE edema b/l improved Denies chest pain, shortness of breath, or abdominal pain Family at the bedside and discussed with Nephrology and GI consulted Plan to DC to [facility] on Monday Review of Systems Review of Systems: All systems reviewed & are unremarkable except as noted in Subjective Physical Exam Physical Exam: General- oriented x 3, not in distress, speaks in sentences with no effort or accessory muscle use Eyes- anicteric Neck- no JVD Lungs- clear breath sounds bilaterally, no rales/wheezes Heart- normal rate, regular rhythm; no murmurs Abdomen- normal bowel sounds, nondistended, soft, nontender Extremities- + b/l lower extremity edema improved, healing excoriated scabbed wounds, no erythema/warmth/tenderness Neuro- alert, oriented x 3; no gross focal neurologic deficits Skin- warm & dry Results & Data Results & Data Vital Signs (Past 12 Hours) Vital Signs Temp Pulse Resp BP Pulse Ox O2 Del Method 11/29/24 11:10 36.5 C 109 H 19 110/70 98 Room Air 11/29/24 07:23 36.7 C 104 H 16 112/65 96 Room Air Laboratory Results 11/29/24 11/29/24 11/29/24 Range/Units 11:09 07:23 06:04 WBC 8.23 (4.8-10.8) K/ul RBC 2.98 L (4.70-6.10) M/uL Hgb 9.8 L (14.0-18.0) g/dl Hct 27.7 L (42.0-52.0) % MCV 93.0 (80.0-100.0) fL MCH 32.9 (25.0-34.0) pg MCHC 35.4 (32.0-36.0) g/dL RDW Std Deviation 54.1 H (36.4-46.3) fL RDW Coeff of Martir 16.0 H (11.5-14.5) % Plt Count 99 L (130-400) K/uL MPV 10.6 (9.4-12.4) fL PT 11.4 (9.0-12.0) Seconds INR 1.1 (0.9-1.1) Sodium 135 L (136-145) mmol/L Potassium 3.5 (3.5-5.1) mmol/L Chloride 95 L (98-107) mmol/L Carbon Dioxide 33 H (21-32) mmol/L Anion Gap 7 (3-11) BUN 39 H (6-23) mg/dl Creatinine 1.64 H (0.6-1.4) mg/dl Est Cr Clr Drug Dosing 47.0 ml/min eGFR 47.59 BUN/Creatinine Ratio 23.8 H (10-20) Glucose 147 H (70-99(Fasting)) mg/dl POC Glucose 169 H 166 H (70-99) mg/dl Calcium 8.5 L (8.6-10.3) mg/dl Phosphorus 3.2 (2.5-4.9) mg/dl Magnesium 1.3 L (1.7-2.4) mg/dl Total Bilirubin 3.8 H (0.2-1.0) mg/dl AST 88 H (13-39) U/L ALT 89 H (7-52) U/L Alkaline Phosphatase 234 H (34-104) U/L Total Protein 6.8 (6.0-8.3) gm/dl Albumin 2.7 L (3.4-5.0) gm/dl Globulin 4.1 H (2.5-4.0) gm/dl Albumin/Globulin Ratio 0.7 L (0.9-2) 11/28/24 11/28/24 11/28/24 Range/Units 21:05 20:28 16:34 WBC (4.8-10.8) K/ul RBC (4.70-6.10) M/uL Hgb (14.0-18.0) g/dl Hct (42.0-52.0) % MCV (80.0-100.0) fL MCH (25.0-34.0) pg MCHC (32.0-36.0) g/dL RDW Std Deviation (36.4-46.3) fL RDW Coeff of Martir (11.5-14.5) % Plt Count (130-400) K/uL MPV (9.4-12.4) fL PT (9.0-12.0) Seconds INR (0.9-1.1) Sodium (136-145) mmol/L Potassium (3.5-5.1) mmol/L Chloride (98-107) mmol/L Carbon Dioxide (21-32) mmol/L Anion Gap (3-11) BUN (6-23) mg/dl Creatinine (0.6-1.4) mg/dl Est Cr Clr Drug Dosing ml/min eGFR BUN/Creatinine Ratio (10-20) Glucose (70-99(Fasting)) mg/dl POC Glucose 95 55 L* 92 (70-99) mg/dl Calcium (8.6-10.3) mg/dl Phosphorus (2.5-4.9) mg/dl Magnesium (1.7-2.4) mg/dl Total Bilirubin (0.2-1.0) mg/dl AST (13-39) U/L ALT (7-52) U/L Alkaline Phosphatase (34-104) U/L Total Protein (6.0-8.3) gm/dl Albumin (3.4-5.0) gm/dl Globulin (2.5-4.0) gm/dl Albumin/Globulin Ratio (0.9-2) Medications Administered Current Inpatient Medications Albuterol (Albuterol Hfa 8 Gm Inhaler) 2 puffs INH Q6H PRN PRN Reason: SOB/Wheezing Stop: 12/20/24 21:48 Dextrose (Dextrose 50% 50 Ml Syringe) 25 - 50 ml IV UD PRN; Protocol PRN Reason: Hypoglycemia Protocol Stop: 12/20/24 20:29 Enoxaparin Sodium (Enoxaparin Inj 40 Mg/0.4 Ml Syr) 40 mg SQ Q24H [facility] Stop: 12/24/24 15:14 Last Admin: 11/29/24 14:36 Dose: 40 mg Folic Acid (Folic Acid 1 Mg Tab) 1 mg PO QAM [facility] Stop: 12/27/24 08:59 Last Admin: 11/29/24 08:09 Dose: 1 mg Glucagon (Glucagon For Inj 1 Mg Vial) 1 mg SQ UD PRN; Protocol PRN Reason: Hypoglycemia Protocol Stop: 12/20/24 20:29 Glucose (Glucose 40% Gel 15 Gm Tube) 15 - 30 gm PO UD PRN; Protocol PRN Reason: Hypoglycemia Protocol Stop: 12/20/24 20:29 Glucose (Glucose 10 Tab/Tube) 4 - 8 tab PO UD PRN; Protocol PRN Reason: Hypoglycemia Protocol Stop: 12/20/24 20:29 Insulin Aspart (Insulin Aspart Per Unit Charge) 0 units SC DAILY@0730 [facility] Stop: 12/28/24 07:29 Last Admin: 11/29/24 08:23 Dose: 13 units Insulin Aspart (Insulin Aspart Per Unit Charge) 0 units SC TID@1130,1630,2100 [facility] Stop: 12/27/24 16:29 Last Admin: 11/29/24 12:21 Dose: 8 units Insulin Glargine (Lantus Per Unit Charge) 35 units SC DAILY [facility] Stop: 12/24/24 08:59 Last Admin: 11/29/24 08:25 Dose: 35 units Lactobacillus Acidophilus (Advanced Probiotic 625 Mg Capsule) 1,250 mg PO DAILY [facility] Stop: 12/23/24 17:59 Last Admin: 11/29/24 08:08 Dose: 1,250 mg Lorazepam (Lorazepam 1 Mg Tab) 1 mg PO ONE PRN; Protocol PRN Reason: EtoH Withdrawal AWSS 6,7,8,9,10 Lorazepam (Lorazepam 2 Mg/1 Ml Vial) 1 mg IV ONE PRN; Protocol PRN Reason: EtoH Withdrawal AWSS 6-10 Lorazepam (Lorazepam 2 Mg/1 Ml Vial) 1 mg IV ONE PRN; Protocol PRN Reason: EtoH Withdrawal AWSS 6-10 Magnesium Chloride (Magnesium Chloride W/Calcium 64mg Delayed Rel Tab) 64 mg PO BID [facility] Stop: 12/28/24 11:29 Last Admin: 11/29/24 08:08 Dose: 64 mg Midodrine (Midodrine Hcl 2.5 Mg Tab) 5 mg PO TID@0800,1200,1700 [facility] Stop: 12/23/24 16:59 Last Admin: 11/29/24 12:25 Dose: 5 mg Miscellaneous (Carbohydrates For Hypoglycemia ) 15 - 30 gm PO UD PRN PRN Reason: Hypoglycemia Treatment Stop: 12/20/24 20:29 Miscellaneous Information (Pharmacy Glycemic Mgmt Consult) 1 each N/A UD PRN; Protocol PRN Reason: Consult Stop: 12/20/24 20:35 Multi-Ingredient Cream (Eucerin Cr 120 Gm Jar) 1 appln EXT BID [facility] Stop: 12/26/24 12:29 Last Admin: 11/29/24 08:12 Dose: 1 appln Pantoprazole Sodium (Pantoprazole 40 Mg Tab) 40 mg PO BID [facility] Stop: 12/26/24 20:59 Last Admin: 11/29/24 08:09 Dose: 40 mg Potassium Chloride (Potassium Chloride Crtab 20 Meq Tabcr) 40 meq PO BID [facility] Stop: 12/28/24 20:59 Last Admin: 11/29/24 08:20 Dose: 40 meq Rifaximin (Rifaximin 550 Mg Tablet) 550 mg PO BID [facility] Stop: 12/27/24 20:59 Last Admin: 11/29/24 08:09 Dose: 550 mg Spironolactone (Spironolactone 25 Mg Tab) 25 mg PO BID [facility] Stop: 12/28/24 20:59 Last Admin: 11/29/24 09:51 Dose: 25 mg Thiamine HCl (Thiamine Hcl 100 Mg Tab) 100 mg PO DAILY [facility] Stop: 12/24/24 08:59 Last Admin: 11/29/24 08:09 Dose: 100 mg Torsemide (Torsemide 20 Mg Tab) 40 mg PO BID [facility] Stop: 12/26/24 20:59 Last Admin: 11/29/24 08:09 Dose: 40 mg (4) Liver failure Hepatic coma status: without hepatic coma Liver failure chronicity: subacute Qualified Code(s): K72.00 - Acute and subacute hepatic failure without coma
[2024-11-30 08:26] LABS: Albumin Globulin Ratio 0.7 (0.9-2); Albumin Level 2.8 gm/dl (3.4-5.0); BUN Creatinine Ratio 23.8 (10-20); Bilirubin,Total 4.3 mg/dl (0.2-1.0); Creatinine Clr Calc Pharmacy 47.3 ml/min; Globulin 4.1 gm/dl (2.5-4.0); Magnesium 1.3 mg/dl (1.7-2.4); Phosphorus 3.7 mg/dl (2.5-4.9); Potassium 3.8 mmol/L (3.5-5.1); Total Protein 6.9 gm/dl (6.0-8.3)
[2024-11-30 08:34] LABS: Hematocrit (blood only) 30.1 % (42.0-52.0); Hemoglobin 10.2 g/dl (14.0-18.0); Mean Corpuscular Hemoglobin 32.9 pg (25.0-34.0); Mean Corpuscular Hgb Conc 33.9 g/dL (32.0-36.0); Mean Corpuscular Volume 97.1 fL (80.0-100.0); Platelet Count 90 K/uL (130-400); RDW Coefficient of Variation 16.2 % (11.5-14.5); RDW Standard Deviation 57.3 fL (36.4-46.3)
--- NOTE | 2024-11-30 11:58 | Hospitalist Progress Note ---
Date of Service November 30, 2024 Assessment & Plan (1) Metabolic encephalopathy: (2) Sepsis: (3) Alcohol withdrawal: (4) Liver failure: Plan: (1) Alcohol withdrawal: Plan: (1) ARF (acute renal failure): (2) Cirrhosis: (3) Sepsis: Plan per previous hospitalist notes with addendum: Pt is a 59yoM with PMhx significant for alcoholism, thrombocytopenia, HTN, history of bilateral hearing loss, congenital cataracts to both eyes who presents from home with family members out of concern for his mental status and inability to move at home. Pt admitted to the ICU. Acute Metabolic/Toxic Encephalopathy Multifactorial: Sepsis, Alcoholism, Liver failure Pt altered Hx of alcohol abuse, last drink per family the night before Head CT with past stroke and concerning for sinusitis Ammonia elevated at 85 Alcohol level <10 AWSS protocol Delirium precautions, assistive hearing and visual devices as needed Continue to monitor 11/26 Oriented x 3, to baseline mental status Management of sepsis, alcoholism, liver failure. Below Sepsis with Shock Bacteremia- Staph hominis Lower Extremity Wounds, cellulitis Pt with leukocytosis, tachycardia Procalcitonin elevated Lactate elevated BP initially soft UA suggestive of infection, urine cx negat. Blood Cx x 2 Ordered Pt with excoriated healing skin lesions especially on his lower extremities CT head noting sinusitis given IV Zosyn and Daptomycin CXR: no acute process CT abd/pelvis: no infection Blood culture: Staph hominis 2nd blood culture: Negative Urine Cx: Negative 11/26 ID consulted and recommendations noted, transitioned to linezolid p.o., last day 11/27 LE edema much improved, RLE >LLE, obtained doppler to r/o dvt - negat. 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/26 Continue with insulin Lantus and insulin Cirrhosis/Liver Failure/ possible alcoholic hepatitis Chronic alcohol use Pt with long history of alcohol abuse Liver enzymes significantly elevated Ammonia level elevated CT abd/pelvis noting worsening cirrhosis and minimal ascites Thiamine and folic acid supplements 11/26 Indirect bilirubinemia still elevated but trending down AST/ALT still trending up repeat ammonia pending melena reported initially, Hg remains ~ 10, no recurrence of melena requested GI to reevaluate the patient if ammonia level normal, DC lactulose Continue Protonix IV twice a day 11/27 Pt seen by GI, lactulose stopped, cont. rifaximin. Obtain abd. US and evaluate for ascites 11/28 No ascites on US. + pl. effusion, CXR obtained - R pl. effusion - pulmonary consulted, no thoracentesis at this time, monitor if symptoms worsen. Discussed w/ ID as well, no need for cont. abx at this time. 11/29 Per nephrology - cont. torsemide 40 bid, spironolactone 25 bid, K supplement, Mag supplement Acute Kidney Injury, hyponatremia, hypokalemia Cr elevated at 3.15 on admission IV fluids given 11/26 Creatinine further improving, currently 1.2 midodrine continued Positive lower extremity edema today, IV Lasix ordered x 1 dose today, transit ioned from PO Lasix to Torsemide Nephro on board 11/27 Na 129, Cr 1.6 Nephrology continues to follow closely cont. torsemide, spironolactone replete K 11/28 Na 133, Cr 1.6 Nephrology continues to follow closely cont. torsemide, spironolactone replete K Anemia, Thrombocytopenia likely from Sepsis, Alcoholism anemia panel: ok Peripheral smear: The findings are that of normocytic anemia, thrombocytopenia and neutrophilia. Cytopenia's are relatively common in cirrhosis. The neutrophilia is consistent with history of sepsis. did not received heparin 11/26 Hemoglobin remained stable around 10-11 Platelet count remained around 70-90K Monitor CBC while on linezolid Alcoholism -- No overt signs of withdrawal given Gabapentin protocol Hyperkalemia resolved Acute on Chronic Hyponatremia Pt with chronic alcohol hx and chronic hyponatremia Also superimposed pseudohyponatremia in setting of hyperglycemia resolving, as above DVT prophylaxis: Lovenox 40 subcu daily. monitor Plt CODE STATUS: full code Dispo: Plan to DC to [facility] on Monday Admission and Anticipated Discharge Date Admission Date: November 20, 2024 Subjective Follow-up for acute metabolic encephalopathy, possible sepsis, acute renal failure, liver failure/alcoholic hepatitis, etc. Seen resting in chair, comfortable, not in distress +LE edema b/l improved -> obtained Doppler to check for DVT - negat. for DVT Denies chest pain, shortness of breath, or abdominal pain Family at the bedside and discussed with yesterday Nephrology and GI consulted - diuretics adjusted Plan to DC to [facility] on Monday Review of Systems Review of Systems: All systems reviewed & are unremarkable except as noted in Subjective Physical Exam Physical Exam: General- oriented x 3, not in distress, speaks in sentences with no effort or accessory muscle use Eyes- anicteric Neck- no JVD Lungs- clear breath sounds bilaterally, no rales/wheezes Heart- normal rate, regular rhythm; no murmurs Abdomen- normal bowel sounds, nondistended, soft, nontender Extremities- + b/l lower extremity edema improved, healing excoriated scabbed wounds, no erythema/warmth/tenderness Neuro- alert, oriented x 3; no gross focal neurologic deficits Skin- warm & dry Results & Data Results & Data Vital Signs (Past 12 Hours) Vital Signs Temp Pulse Pulse Resp BP BP Pulse Ox 11/30/24 11:45 36.7 C 117 H 18 130/80 98 11/30/24 11:02 11/30/24 08:00 111 H 11/30/24 07:49 36.8 C 110 H 17 125/74 97 11/30/24 04:02 36.5 C 111 H 17 135/86 92 11/30/24 01:06 36.7 C 112 H 16 125/78 94 O2 Del Method 11/30/24 11:45 Room Air 11/30/24 11:02 Room Air 11/30/24 08:00 11/30/24 07:49 Room Air 11/30/24 04:02 Room Air 11/30/24 01:06 Room Air Laboratory Results 11/30/24 11/30/24 11/30/24 Range/Units 11:33 07:34 07:30 WBC 7.40 (4.8-10.8) K/ul RBC 3.10 L (4.70-6.10) M/uL Hgb 10.2 L (14.0-18.0) g/dl Hct 30.1 L (42.0-52.0) % MCV 97.1 (80.0-100.0) fL MCH 32.9 (25.0-34.0) pg MCHC 33.9 (32.0-36.0) g/dL RDW Std Deviation 57.3 H (36.4-46.3) fL RDW Coeff of Martir 16.2 H (11.5-14.5) % Plt Count 90 L (130-400) K/uL MPV 11.0 (9.4-12.4) fL Sodium 138 (136-145) mmol/L Potassium 3.8 (3.5-5.1) mmol/L Chloride 96 L (98-107) mmol/L Carbon Dioxide 38 H (21-32) mmol/L Anion Gap 4 (3-11) BUN 38 H (6-23) mg/dl Creatinine 1.60 H (0.6-1.4) mg/dl Est Cr Clr Drug Dosing 47.3 ml/min eGFR 49.02 BUN/Creatinine Ratio 23.8 H (10-20) Glucose 149 H (70-99(Fasting)) mg/dl POC Glucose 193 H 137 H (70-99) mg/dl Calcium 9.0 (8.6-10.3) mg/dl Phosphorus 3.7 (2.5-4.9) mg/dl Magnesium 1.3 L (1.7-2.4) mg/dl Total Bilirubin 4.3 H (0.2-1.0) mg/dl AST 80 H (13-39) U/L ALT 80 H (7-52) U/L Alkaline Phosphatase 216 H (34-104) U/L Total Protein 6.9 (6.0-8.3) gm/dl Albumin 2.8 L (3.4-5.0) gm/dl Globulin 4.1 H (2.5-4.0) gm/dl Albumin/Globulin Ratio 0.7 L (0.9-2) 11/29/24 11/29/24 Range/Units 21:06 16:23 WBC (4.8-10.8) K/ul RBC (4.70-6.10) M/uL Hgb (14.0-18.0) g/dl Hct (42.0-52.0) % MCV (80.0-100.0) fL MCH (25.0-34.0) pg MCHC (32.0-36.0) g/dL RDW Std Deviation (36.4-46.3) fL RDW Coeff of Martir (11.5-14.5) % Plt Count (130-400) K/uL MPV (9.4-12.4) fL Sodium (136-145) mmol/L Potassium (3.5-5.1) mmol/L Chloride (98-107) mmol/L Carbon Dioxide (21-32) mmol/L Anion Gap (3-11) BUN (6-23) mg/dl Creatinine (0.6-1.4) mg/dl Est Cr Clr Drug Dosing ml/min eGFR BUN/Creatinine Ratio (10-20) Glucose (70-99(Fasting)) mg/dl POC Glucose 138 H 135 H (70-99) mg/dl Calcium (8.6-10.3) mg/dl Phosphorus (2.5-4.9) mg/dl Magnesium (1.7-2.4) mg/dl Total Bilirubin (0.2-1.0) mg/dl AST (13-39) U/L ALT (7-52) U/L Alkaline Phosphatase (34-104) U/L Total Protein (6.0-8.3) gm/dl Albumin (3.4-5.0) gm/dl Globulin (2.5-4.0) gm/dl Albumin/Globulin Ratio (0.9-2) Medications Administered Current Inpatient Medications Albuterol (Albuterol Hfa 8 Gm Inhaler) 2 puffs INH Q6H PRN PRN Reason: SOB/Wheezing Stop: 12/20/24 21:48 Dextrose (Dextrose 50% 50 Ml Syringe) 25 - 50 ml IV UD PRN; Protocol PRN Reason: Hypoglycemia Protocol Stop: 12/20/24 20:29 Enoxaparin Sodium (Enoxaparin Inj 40 Mg/0.4 Ml Syr) 40 mg SQ Q24H [facility] Stop: 12/24/24 15:14 Last Admin: 11/29/24 14:36 Dose: 40 mg Folic Acid (Folic Acid 1 Mg Tab) 1 mg PO QAM [facility] Stop: 12/27/24 08:59 Last Admin: 11/30/24 07:53 Dose: 1 mg Glucagon (Glucagon For Inj 1 Mg Vial) 1 mg SQ UD PRN; Protocol PRN Reason: Hypoglycemia Protocol Stop: 12/20/24 20:29 Glucose (Glucose 40% Gel 15 Gm Tube) 15 - 30 gm PO UD PRN; Protocol PRN Reason: Hypoglycemia Protocol Stop: 12/20/24 20:29 Glucose (Glucose 10 Tab/Tube) 4 - 8 tab PO UD PRN; Protocol PRN Reason: Hypoglycemia Protocol Stop: 12/20/24 20:29 Magnesium Sulfate/Dextrose (Magnesium Sulfate / D5w) 1 gm in 100 mls @ 50 mls/hr IV ONE ONE Stop: 11/30/24 13:53 Insulin Aspart (Insulin Aspart Per Unit Charge) 0 units SC DAILY@0730 [facility] Stop: 12/28/24 07:29 Last Admin: 11/30/24 08:03 Dose: 12 units Insulin Aspart (Insulin Aspart Per Unit Charge) 0 units SC TID@1130,1630,2100 [facility] Stop: 12/27/24 16:29 Last Admin: 11/29/24 21:17 Dose: Not Given Insulin Glargine (Lantus Per Unit Charge) 35 units SC DAILY [facility] Stop: 12/24/24 08:59 Last Admin: 11/30/24 08:03 Dose: 35 units Lactobacillus Acidophilus (Advanced Probiotic 625 Mg Capsule) 1,250 mg PO DAILY [facility] Stop: 12/23/24 17:59 Last Admin: 11/30/24 07:52 Dose: 1,250 mg Lorazepam (Lorazepam 1 Mg Tab) 1 mg PO ONE PRN; Protocol PRN Reason: EtoH Withdrawal AWSS 6,7,8,9,10 Lorazepam (Lorazepam 2 Mg/1 Ml Vial) 1 mg IV ONE PRN; Protocol PRN Reason: EtoH Withdrawal AWSS 6-10 Lorazepam (Lorazepam 2 Mg/1 Ml Vial) 1 mg IV ONE PRN; Protocol PRN Reason: EtoH Withdrawal AWSS 6-10 Magnesium Chloride (Magnesium Chloride W/Calcium 64mg Delayed Rel Tab) 64 mg PO BID [facility] Stop: 12/28/24 11:29 Last Admin: 11/30/24 07:52 Dose: 64 mg Midodrine (Midodrine Hcl 2.5 Mg Tab) 5 mg PO TID@0800,1200,1700 [facility] Stop: 12/23/24 16:59 Last Admin: 11/30/24 07:51 Dose: 5 mg Miscellaneous (Carbohydrates For Hypoglycemia ) 15 - 30 gm PO UD PRN PRN Reason: Hypoglycemia Treatment Stop: 12/20/24 20:29 Miscellaneous Information (Pharmacy Glycemic Mgmt Consult) 1 each N/A UD PRN; Protocol PRN Reason: Consult Stop: 12/20/24 20:35 Multi-Ingredient Cream (Eucerin Cr 120 Gm Jar) 1 appln EXT BID [facility] Stop: 12/26/24 12:29 Last Admin: 11/30/24 07:54 Dose: 1 appln Pantoprazole Sodium (Pantoprazole 40 Mg Tab) 40 mg PO BID [facility] Stop: 12/26/24 20:59 Last Admin: 11/30/24 10:04 Dose: 40 mg Potassium Chloride (Potassium Chloride Crtab 20 Meq Tabcr) 40 meq PO BID [facility] Stop: 12/28/24 20:59 Last Admin: 11/30/24 08:04 Dose: 40 meq Rifaximin (Rifaximin 550 Mg Tablet) 550 mg PO BID [facility] Stop: 12/27/24 20:59 Last Admin: 11/30/24 07:53 Dose: 550 mg Spironolactone (Spironolactone 25 Mg Tab) 25 mg PO BID [facility] Stop: 12/28/24 20:59 Last Admin: 11/30/24 07:52 Dose: 25 mg Thiamine HCl (Thiamine Hcl 100 Mg Tab) 100 mg PO DAILY [facility] Stop: 12/24/24 08:59 Last Admin: 11/30/24 07:52 Dose: 100 mg Torsemide (Torsemide 20 Mg Tab) 40 mg PO BID [facility] Stop: 12/26/24 20:59 Last Admin: 11/30/24 07:53 Dose: 40 mg (4) Liver failure Hepatic coma status: without hepatic coma Liver failure chronicity: subacute Qualified Code(s): K72.00 - Acute and subacute hepatic failure without coma
[2024-11-30] MEDS: MAGNESIUM SULFATE / D5W 1 GM/100 ML BAG IV ONE ×2 (12:19→16:51)
--- NOTE | 2024-11-30 16:01 | Ultrasound Report ---
EXAM: US Duplex Bilateral Lower Extremities Veins INDICATION: Bilateral lower extremity edema. TECHNIQUE: Real-time duplex ultrasound scan of the bilateral lower extremity veins integrating B-mode two-dimensional vascular structure, Doppler spectral analysis, color flow Doppler imaging and compression. COMPARISON: Left 04/04/2021 FINDINGS: Right deep veins: No DVT in the right common femoral, femoral or popliteal veins. The veins demonstrate normal color flow, are normally compressible, with normal phasic flow and/or augmentation response. Right superficial veins: No abnormality noted. No thrombus in the visualized right great saphenous vein. Left deep veins: No DVT in the left common femoral, femoral or popliteal veins. The veins demonstrate normal color flow, are normally compressible, with normal phasic flow and/or augmentation response. Left superficial veins: No abnormality noted. No thrombus in the visualized left great saphenous vein. Soft tissues: There is mild bilateral subcutaneous edema. No fluid collection. IMPRESSION: No deep venous thrombosis of either lower extremity. ACT 112: N/A Electronically signed by Cecy Florian 11-30-2024 4:01 PM
[2024-11-30] MEDS: OPTIRAY 320 125ml IV ONE (17:51)
--- NOTE | 2024-11-30 19:23 | CT Scan Report ---
EXAM: CT Angiography Chest With Intravenous Contrast INDICATION: Shortness of breath TECHNIQUE: Axial computed tomographic angiography images of the chest with intravenous contrast. Sagittal and coronal reformatted images were created and reviewed. This CT exam was performed using one or more of the following dose reduction techniques: automated exposure control, adjustment of the mA and/or kV according to patient size, and/or use of iterative reconstruction technique. MIP reconstructed images were created and reviewed. CONTRAST: 119ml of Optiray 320 was administered intravenously. COMPARISON: No relevant prior studies available. FINDINGS: Pulmonary arteries: No abnormality noted. No pulmonary embolism. Aorta: No acute change noted. No thoracic aortic aneurysm or dissection. Lungs and pleural spaces: Small to moderate right layering pleural effusion with compressive atelectasis of portions of the right lower lobe. There are a few scattered small calcified granulomata on the right lung. No bronchiectasis, honeycombing or reticulation. No mass. No pneumothorax. Heart: Mild cardiomegaly. No right heart strain. No pericardial effusion. Bones/joints: No acute or atypical chronic changes. Soft tissues: No abnormality noted. Lymph nodes: No abnormality noted. No enlarged lymph nodes. Liver: The visualized portion of the liver is cirrhotic. No mass identified. No ductal dilatation noted. IMPRESSION: 1. No pulmonary embolus noted. 2. Small to moderate right pleural effusion with partial compressive collapse of the right lower lobe. 3. Cirrhotic liver. ACT 112: Positive. There are findings on this exam that require communication between the performing entity and the patient following Patient Test Result Information Act ([place] ACT 112) guidelines. Electronically signed by Cecy Florian 11-30-2024 7:22 PM
[2024-12-01 06:11] LABS: Hematocrit (blood only) 28.1 % (42.0-52.0); Hemoglobin 9.5 g/dl (14.0-18.0); Mean Corpuscular Hemoglobin 32.8 pg (25.0-34.0); Mean Corpuscular Hgb Conc 33.8 g/dL (32.0-36.0); Mean Corpuscular Volume 96.9 fL (80.0-100.0); Mean Platelet Volume 10.8 fL (9.4-12.4); Platelet Count 63 K/uL (130-400); RDW Coefficient of Variation 15.6 % (11.5-14.5); White Blood Count 6.32 K/ul (4.8-10.8)
[2024-12-01 06:29] LABS: Albumin Globulin Ratio 0.7 (0.9-2); Albumin Level 2.7 gm/dl (3.4-5.0); BUN Creatinine Ratio 24.6 (10-20); Bilirubin,Total 3.9 mg/dl (0.2-1.0); Creatinine Clr Calc Pharmacy 45.3 ml/min; Globulin 3.9 gm/dl (2.5-4.0); Magnesium 1.6 mg/dl (1.7-2.4); Phosphorus 4.2 mg/dl (2.5-4.9); Potassium 4.2 mmol/L (3.5-5.1); Total Protein 6.6 gm/dl (6.0-8.3)
--- NOTE | 2024-12-01 07:32 | Hospitalist Progress Note ---
Date of Service December 01, 2024 Assessment & Plan (1) Metabolic encephalopathy: (2) Sepsis: (3) Alcohol withdrawal: (4) Liver failure: Plan: (1) Alcohol withdrawal: Plan: (1) ARF (acute renal failure): (2) Cirrhosis: (3) Sepsis: Plan per previous hospitalist notes with addendum: Pt is a 59yoM with PMhx significant for alcoholism, thrombocytopenia, HTN, history of bilateral hearing loss, congenital cataracts to both eyes who presents from home with family members out of concern for his mental status and inability to move at home. Pt admitted to the ICU. Acute Metabolic/Toxic Encephalopathy Multifactorial: Sepsis, Alcoholism, Liver failure Pt altered Hx of alcohol abuse, last drink per family the night before Head CT with past stroke and concerning for sinusitis Ammonia elevated at 85 Alcohol level <10 AWSS protocol Delirium precautions, assistive hearing and visual devices as needed Continue to monitor 11/26 Oriented x 3, to baseline mental status Management of sepsis, alcoholism, liver failure. Below Sepsis with Shock Bacteremia- Staph hominis Lower Extremity Wounds, cellulitis Pt with leukocytosis, tachycardia Procalcitonin elevated Lactate elevated BP initially soft UA suggestive of infection, urine cx negat. Blood Cx x 2 Ordered Pt with excoriated healing skin lesions especially on his lower extremities CT head noting sinusitis given IV Zosyn and Daptomycin CXR: no acute process CT abd/pelvis: no infection Blood culture: Staph hominis 2nd blood culture: Negative Urine Cx: Negative 11/26 ID consulted and recommendations noted, transitioned to linezolid p.o., last day 11/27 LE edema much improved, RLE >LLE, obtained doppler to r/o dvt - negat. for dvt Diabetes type 2 New diagnosis presented with hyperglycemia A1c 10.1 ?HHS picture ICU hyperglycemia protocol Glycemic consult Transportation Project Manager 11/26 Continue with insulin Lantus and insulin Cirrhosis/Liver Failure/ possible alcoholic hepatitis Chronic alcohol use Pt with long history of alcohol abuse Liver enzymes significantly elevated Ammonia level elevated CT abd/pelvis noting worsening cirrhosis and minimal ascites Thiamine and folic acid supplements 11/26 Indirect bilirubinemia still elevated but trending down AST/ALT still trending up repeat ammonia pending melena reported initially, Hg remains ~ 10, no recurrence of melena requested GI to reevaluate the patient if ammonia level normal, DC lactulose Continue Protonix IV twice a day 11/27 Pt seen by GI, lactulose stopped, cont. rifaximin. Obtain abd. US and evaluate for ascites 11/28 No ascites on US. + pl. effusion, CXR obtained - R pl. effusion - pulmonary consulted, no thoracentesis at this time, monitor if symptoms worsen. Discussed w/ ID as well, no need for cont. abx at this time. 11/29 Per nephrology - cont. torsemide 40 bid, spironolactone 25 bid, K supplement, Mag supplement Acute Kidney Injury, hyponatremia, hypokalemia Cr elevated at 3.15 on admission IV fluids given 11/26 Creatinine further improving, currently 1.2 midodrine continued Positive lower extremity edema today, IV Lasix ordered x 1 dose today, transit ioned from PO Lasix to Torsemide Nephro on board 11/27 Na 129, Cr 1.6 Nephrology continues to follow closely cont. torsemide, spironolactone replete K 11/28 Na 133, Cr 1.6 Nephrology continues to follow closely cont. torsemide, spironolactone replete K Anemia, Thrombocytopenia likely from Sepsis, Alcoholism anemia panel: ok Peripheral smear: The findings are that of normocytic anemia, thrombocytopenia and neutrophilia. Cytopenia's are relatively common in cirrhosis. The neutrophilia is consistent with history of sepsis. did not received heparin 11/26 Hemoglobin remained stable around 10-11 Platelet count remained around 70-90K Monitor CBC while on linezolid Alcoholism -- No overt signs of withdrawal given Gabapentin protocol Hyperkalemia resolved Acute on Chronic Hyponatremia Pt with chronic alcohol hx and chronic hyponatremia Also superimposed pseudohyponatremia in setting of hyperglycemia resolving, as above DVT prophylaxis: Lovenox 40 subcu daily. monitor Plt CODE STATUS: full code Dispo: Plan to DC to [facility] on Monday Admission and Anticipated Discharge Date Admission Date: November 20, 2024 Subjective Follow-up for acute metabolic encephalopathy, possible sepsis, acute renal failure, liver failure/alcoholic hepatitis, etc. Seen resting in chair, comfortable, not in distress +LE edema b/l much improved -> obtained Doppler to check for DVT - negat. for DVT Denies chest pain, shortness of breath, or abdominal pain Nephrology and GI consulted - diuretics adjusted Plan to DC to [facility] on Monday Review of Systems Review of Systems: All systems reviewed & are unremarkable except as noted in Subjective Physical Exam Physical Exam: General- oriented x 3, not in distress, speaks in sentences with no effort or accessory muscle use Eyes- anicteric Neck- no JVD Lungs- decreased breath sounds, no rales/wheezes Heart- normal rate, regular rhythm; no murmurs Abdomen- normal bowel sounds, nondistended, soft, nontender Extremities- + b/l lower extremity edema much improved, healing excoriated scabbed wounds, no erythema/warmth/tenderness Neuro- alert, oriented x 3; no gross focal neurologic deficits Skin- warm & dry Results & Data Results & Data Vital Signs (Past 12 Hours) Vital Signs Temp Pulse Pulse Resp BP Pulse Ox O2 Del Method 12/01/24 02:10 36.6 C 95 H 18 120/79 93 Room Air 11/30/24 23:00 96 H 11/30/24 20:30 Room Air 11/30/24 20:00 36.9 C 100 H 16 122/87 95 Room Air Laboratory Results 12/01/24 12/01/24 11/30/24 Range/Units 07:23 05:55 20:20 WBC 6.32 (4.8-10.8) K/ul RBC 2.90 L (4.70-6.10) M/uL Hgb 9.5 L (14.0-18.0) g/dl Hct 28.1 L (42.0-52.0) % MCV 96.9 (80.0-100.0) fL MCH 32.8 (25.0-34.0) pg MCHC 33.8 (32.0-36.0) g/dL RDW Std Deviation 55.0 H (36.4-46.3) fL RDW Coeff of Martir 15.6 H (11.5-14.5) % Plt Count 63 L (130-400) K/uL MPV 10.8 (9.4-12.4) fL Sodium 136 (136-145) mmol/L Potassium 4.2 (3.5-5.1) mmol/L Chloride 95 L (98-107) mmol/L Carbon Dioxide 36 H (21-32) mmol/L Anion Gap 5 (3-11) BUN 41 H (6-23) mg/dl Creatinine 1.67 H (0.6-1.4) mg/dl Est Cr Clr Drug Dosing 45.3 ml/min eGFR 46.57 BUN/Creatinine Ratio 24.6 H (10-20) Glucose 145 H (70-99(Fasting)) mg/dl POC Glucose 147 H 123 H (70-99) mg/dl Calcium 9.0 (8.6-10.3) mg/dl Phosphorus 4.2 (2.5-4.9) mg/dl Magnesium 1.6 L (1.7-2.4) mg/dl Total Bilirubin 3.9 H (0.2-1.0) mg/dl AST 67 H (13-39) U/L ALT 71 H (7-52) U/L Alkaline Phosphatase 199 H (34-104) U/L Total Protein 6.6 (6.0-8.3) gm/dl Albumin 2.7 L (3.4-5.0) gm/dl Globulin 3.9 (2.5-4.0) gm/dl Albumin/Globulin Ratio 0.7 L (0.9-2) 11/30/24 11/30/24 11/30/24 Range/Units 15:58 11:33 07:34 WBC 7.40 (4.8-10.8) K/ul RBC 3.10 L (4.70-6.10) M/uL Hgb 10.2 L (14.0-18.0) g/dl Hct 30.1 L (42.0-52.0) % MCV 97.1 (80.0-100.0) fL MCH 32.9 (25.0-34.0) pg MCHC 33.9 (32.0-36.0) g/dL RDW Std Deviation 57.3 H (36.4-46.3) fL RDW Coeff of Martir 16.2 H (11.5-14.5) % Plt Count 90 L (130-400) K/uL MPV 11.0 (9.4-12.4) fL Sodium 138 (136-145) mmol/L Potassium 3.8 (3.5-5.1) mmol/L Chloride 96 L (98-107) mmol/L Carbon Dioxide 38 H (21-32) mmol/L Anion Gap 4 (3-11) BUN 38 H (6-23) mg/dl Creatinine 1.60 H (0.6-1.4) mg/dl Est Cr Clr Drug Dosing 47.3 ml/min eGFR 49.02 BUN/Creatinine Ratio 23.8 H (10-20) Glucose 149 H (70-99(Fasting)) mg/dl POC Glucose 127 H 193 H (70-99) mg/dl Calcium 9.0 (8.6-10.3) mg/dl Phosphorus 3.7 (2.5-4.9) mg/dl Magnesium 1.3 L (1.7-2.4) mg/dl Total Bilirubin 4.3 H (0.2-1.0) mg/dl AST 80 H (13-39) U/L ALT 80 H (7-52) U/L Alkaline Phosphatase 216 H (34-104) U/L Total Protein 6.9 (6.0-8.3) gm/dl Albumin 2.8 L (3.4-5.0) gm/dl Globulin 4.1 H (2.5-4.0) gm/dl Albumin/Globulin Ratio 0.7 L (0.9-2) 11/30/24 Range/Units 07:30 WBC (4.8-10.8) K/ul RBC (4.70-6.10) M/uL Hgb (14.0-18.0) g/dl Hct (42.0-52.0) % MCV (80.0-100.0) fL MCH (25.0-34.0) pg MCHC (32.0-36.0) g/dL RDW Std Deviation (36.4-46.3) fL RDW Coeff of Martir (11.5-14.5) % Plt Count (130-400) K/uL MPV (9.4-12.4) fL Sodium (136-145) mmol/L Potassium (3.5-5.1) mmol/L Chloride (98-107) mmol/L Carbon Dioxide (21-32) mmol/L Anion Gap (3-11) BUN (6-23) mg/dl Creatinine (0.6-1.4) mg/dl Est Cr Clr Drug Dosing ml/min eGFR BUN/Creatinine Ratio (10-20) Glucose (70-99(Fasting)) mg/dl POC Glucose 137 H (70-99) mg/dl Calcium (8.6-10.3) mg/dl Phosphorus (2.5-4.9) mg/dl Magnesium (1.7-2.4) mg/dl Total Bilirubin (0.2-1.0) mg/dl AST (13-39) U/L ALT (7-52) U/L Alkaline Phosphatase (34-104) U/L Total Protein (6.0-8.3) gm/dl Albumin (3.4-5.0) gm/dl Globulin (2.5-4.0) gm/dl Albumin/Globulin Ratio (0.9-2) Medications Administered Current Inpatient Medications Albuterol (Albuterol Hfa 8 Gm Inhaler) 2 puffs INH Q6H PRN PRN Reason: SOB/Wheezing Stop: 12/20/24 21:48 Dextrose (Dextrose 50% 50 Ml Syringe) 25 - 50 ml IV UD PRN; Protocol PRN Reason: Hypoglycemia Protocol Stop: 12/20/24 20:29 Enoxaparin Sodium (Enoxaparin Inj 40 Mg/0.4 Ml Syr) 40 mg SQ Q24H OLIVIA Stop: 12/24/24 15:14 Last Admin: 11/30/24 16:23 Dose: 40 mg Folic Acid (Folic Acid 1 Mg Tab) 1 mg PO QAM OLIVIA Stop: 12/27/24 08:59 Last Admin: 11/30/24 07:53 Dose: 1 mg Glucagon (Glucagon For Inj 1 Mg Vial) 1 mg SQ UD PRN; Protocol PRN Reason: Hypoglycemia Protocol Stop: 12/20/24 20:29 Glucose (Glucose 40% Gel 15 Gm Tube) 15 - 30 gm PO UD PRN; Protocol PRN Reason: Hypoglycemia Protocol Stop: 12/20/24 20:29 Glucose (Glucose 10 Tab/Tube) 4 - 8 tab PO UD PRN; Protocol PRN Reason: Hypoglycemia Protocol Stop: 12/20/24 20:29 Magnesium Sulfate/Dextrose (Magnesium Sulfate / D5w) 1 gm in 100 mls @ 50 mls/h r IV ONE ONE Stop: 12/01/24 09:29 Insulin Aspart (Insulin Aspart Per Unit Charge) 0 units SC DAILY@0730 OLIVIA Stop: 12/28/24 07:29 Last Admin: 11/30/24 08:03 Dose: 12 units Insulin Aspart (Insulin Aspart Per Unit Charge) 0 units SC TID@1130,1630,2100 [facility] Stop: 12/27/24 16:29 Last Admin: 11/30/24 20:32 Dose: Not Given Insulin Glargine (Lantus Per Unit Charge) 35 units SC DAILY OLIVIA Stop: 12/24/24 08:59 Last Admin: 11/30/24 08:03 Dose: 35 units Lactobacillus Acidophilus (Advanced Probiotic 625 Mg Capsule) 1,250 mg PO DAILY [facility] Stop: 12/23/24 17:59 Last Admin: 11/30/24 07:52 Dose: 1,250 mg Lorazepam (Lorazepam 1 Mg Tab) 1 mg PO ONE PRN; Protocol PRN Reason: EtoH Withdrawal AWSS 6,7,8,9,10 Lorazepam (Lorazepam 2 Mg/1 Ml Vial) 1 mg IV ONE PRN; Protocol PRN Reason: EtoH Withdrawal AWSS 6-10 Lorazepam (Lorazepam 2 Mg/1 Ml Vial) 1 mg IV ONE PRN; Protocol PRN Reason: EtoH Withdrawal AWSS 6-10 Magnesium Chloride (Magnesium Chloride W/Calcium 64mg Delayed Rel Tab) 64 mg PO BID [facility] Stop: 12/28/24 11:29 Last Admin: 11/30/24 20:36 Dose: 64 mg Midodrine (Midodrine Hcl 2.5 Mg Tab) 5 mg PO TID@0800,1200,1700 [facility] Stop: 12/23/24 16:59 Last Admin: 11/30/24 16:22 Dose: 5 mg Miscellaneous (Carbohydrates For Hypoglycemia ) 15 - 30 gm PO UD PRN PRN Reason: Hypoglycemia Treatment Stop: 12/20/24 20:29 Miscellaneous Information (Pharmacy Glycemic Mgmt Consult) 1 each N/A UD PRN; Protocol PRN Reason: Consult Stop: 12/20/24 20:35 Multi-Ingredient Cream (Eucerin Cr 120 Gm Jar) 1 appln EXT BID [facility] Stop: 12/26/24 12:29 Last Admin: 11/30/24 20:37 Dose: 1 appln Pantoprazole Sodium (Pantoprazole 40 Mg Tab) 40 mg PO BID [facility] Stop: 12/26/24 20:59 Last Admin: 11/30/24 20:35 Dose: 40 mg Potassium Chloride (Potassium Chloride Crtab 20 Meq Tabcr) 40 meq PO BID [facility] Stop: 12/28/24 20:59 Last Admin: 11/30/24 20:40 Dose: 40 meq Rifaximin (Rifaximin 550 Mg Tablet) 550 mg PO BID OLIVIA Stop: 12/27/24 20:59 Last Admin: 11/30/24 20:35 Dose: 550 mg Spironolactone (Spironolactone 25 Mg Tab) 25 mg PO BID OLIVIA Stop: 12/28/24 20:59 Last Admin: 11/30/24 20:34 Dose: 25 mg Thiamine HCl (Thiamine Hcl 100 Mg Tab) 100 mg PO DAILY OLIVIA Stop: 12/24/24 08:59 Last Admin: 11/30/24 07:52 Dose: 100 mg Torsemide (Torsemide 20 Mg Tab) 40 mg PO BID OLIVIA Stop: 12/26/24 20:59 Last Admin: 11/30/24 20:36 Dose: 40 mg (4) Liver failure Hepatic coma status: without hepatic coma Liver failure chronicity: subacute Qualified Code(s): K72.00 - Acute and subacute hepatic failure without coma
[2024-12-01] MEDS: MAGNESIUM SULFATE / D5W 1 GM/100 ML BAG IV ONE (08:31)
[2024-12-01] MEDS: MIDODRINE HCL 2.5 MG TAB PO SCH (16:54)
[2024-12-02 06:44] LABS: Hematocrit (blood only) 25.4 % (42.0-52.0); Mean Corpuscular Hemoglobin 33.5 pg (25.0-34.0); Mean Corpuscular Hgb Conc 35.4 g/dL (32.0-36.0); Mean Corpuscular Volume 94.4 fL (80.0-100.0); Mean Platelet Volume 10.9 fL (9.4-12.4); Platelet Count 57 K/uL (130-400); RDW Standard Deviation 51.5 fL (36.4-46.3); Red Blood Count 2.69 M/uL (4.70-6.10); White Blood Count 5.75 K/ul (4.8-10.8)
[2024-12-02 07:06] LABS: Calcium 9.1 mg/dl (8.6-10.3); Magnesium 1.5 mg/dl (1.7-2.4); Potassium 4.2 mmol/L (3.5-5.1)
[2024-12-02 07:12] LABS: BUN Creatinine Ratio 23.3 (10-20); Creatinine Clr Calc Pharmacy 45.9 ml/min; Phosphorus 4.3 mg/dl (2.5-4.9)
--- NOTE | 2024-12-02 09:27 | Pharmacy Report ---
Pharmacy Glycemic Short Note 2 - Date of Service December 02, 2024 - Glycemic Short BSG Results (Last 24 hours): 12/01/24 12/01/24 12/01/24 11:19 16:14 20:17 POC Glucose 226 H 80 146 H 12/02/24 07:20 POC Glucose 148 H OUTPATIENT ANTIDIABETIC REGIMEN: * n/a HbA1C: 10.1% ASSESSMENT: 12/02: * BSGs [phone] mg/dL over the past 24 hours. Fasting 148 mg/dL today. Patient received 35 units of basal insulin, 27 units bolus. * Lunchtime BSG continues to be elevated at times. Novolog CR further increased for breakfast coverage only, today's lunch BSG much better at 102 mg/dL. Will slightly loosen lunch and dinner CR. No change in diet order. 11/29: * BSGs 119-385-55-55-166mg/dL the last 24h. Trending on higher end in the AM/lunch and then low at dinner/HS. Received 30 units of basal and 48 units of bolus insulin yesterday. Hypoglycemic last night at HS. * Given fasting BSGs in 160s the last 2 days, will titrate basal further to 35 units qAM. Novolog breakfast parameters continued/no change. Loosened lunch/dinner/HS given BSGs trending down in the evening. 11/27 * Fasting 117 mg/dL- will continue with 30 units of lantus qAM. SCr increase today- monitor * Lunch BSG continues to be elevated with improved BSGs later in day. Will tighten carb ratio with breakfast and lunch. 11/26: * Patient received a total of 55 units of insulin yesterday 3 of which was basal. Fasting BSG within goal at 135 mg/dL today. Will continue current Lantus dosing. * Novolog was tightened for breakfast and lunch today and while there was some improvement noted, CR may need to be tightened further tomorrow. * Abx transitioned to PO linezolid yesterday. 11/25: * BSGs somewhat improved yesterday after basal/bolus changes. BSGs were [phone] mg/dL. Fasting BSG acceptable at 140 mg/dL. * May tighten breakfast and lunchtime CR tomorrow after today's trend assessed. 11/22: * BSGs elevated the last 24h: [phone]/dL. Pt received 15 units of basal and 21 units of bolus insulin yesterday. * Has been NPO until today @ lunch- diet resumed. Continues on IV antibiotics. * Given elevated fasting BSG > 250mg/dL will titrate basal insulin to 0.3unit/kg/day. Novolog tightened at lunch given BSGs likely to increase further with resumption of diet. Will add overnight checks. 11/21: * Pt is a 59 YOM admitted with sepsis, hepatic encephalopathy, and hyperglycemia. No history of DM diagnosis and on no DM medications @ home- A1C 10.1%. Pharmacy consulted to assist with inpatient glycemic management. * BSG on arrival 554mg/dL. Trended down into mid-200s this AM. Insulin drip initiated last evening per DKA protocol although transitioned to SQ quickly given labs not consistent with DKA. Received 15 units of SQ basal and 19 units of bolus insulin last evening. BSG this AM -246mg/dl. * Continues on IV antibiotics and remains NPO. * Continue Lantus 15 units HS (~0.2unit/kg) given continued NPO. Novolog q6 moderate-severe stress scale. PLAN FOR INPATIENT GLYCEMIC CONTROL: * Hold outpatient oral diabetes medications * Basal insulin * Lantus 35 units qAM * Bolus insulin * NovoLog per scale ACHS or Q6hrs while NPO * Goal Range: Low 110 mg/dL - High 140 mg/dL * Correction Factor: 20 mg/dL/unit (breakfast), 25mg/dl/unit (lunch, dinner, HS) * Nutritional / Prandial insulin per carb ratio of 1 unit per 3 (breakfast), 9 (lunch, dinner, HS) grams CHO consumed
[2024-12-02] MEDS: MAGNESIUM SULFATE / D5W 1 GM/100 ML BAG IV ONE ×2 (13:40→17:11)
--- NOTE | 2024-12-02 16:44 | Nephrology Progress Note ---
Date of Service December 02, 2024 Assessment & Plan (1) CEE (acute kidney injury): Plan: plateaud Stage 2 acute kidney injury due to ischemic ATN in setting of staph hominis bacteremia and decompensated cirrhosis. Admission cr 3.1. prior baseline cr 1.2 in January 2024. Cr now at 1.6 today and past several days. he is making urine. BP remains on the lower side but he's ambulating. -stabel mild hyponatremia > treat w/ loop diuretic, monitor Na on spironolactone; monitor on now liberalized FR to 2L - will continue midodrine 2.5mg tid. -Monitor input/output -daily STANDING weight > 76.2 kg today < 78.2 on 11/30 -daily bmp Will follow while in house; will need [facility] d/c appt about 2 wks after d/c and ongoing close lab monitoring after d/c; full d/c recs to follow. (2) Cirrhosis: Plan: he has decompensated cirrhosis with ascites. cont torsemide 40 mg bid, K 40 mEq bid, spironolactone 25 mg bid -cont slow m ag (3) Hypotension: Plan: Due to sepsis. We are giving midodrine as above. Admission and Anticipated Discharge Date Admission Date: November 20, 2024 Subjective no interval clinical events; did 2 laps of unit today and even some stairs w/ PT and walker; no sob, no edema, eating ok; feels abd girth controlled Review of Systems 2 Review of Systems: All systems reviewed & are unremarkable except as noted in Subjective Physical Exam 2 Constitutional: well developed, well nourished, + behavioral limitations and cooperative; no acute distress Eyes: EOM intact bilaterally and + nystagmus ENMT: Ears: + hearing impairment Mouth: + dry oral mucous membranes Respiratory: normal respiratory effort Auscultation: + diminished lung sounds Cardiovascular: RRR, no murmur, no edema Gastrointestinal (Abdomen): Inspection/Auscultation: normal bowel sounds P ercussion/Palpation: abdomen soft; abdomen nontender Musculoskeletal: Extremities: strength 5/5 throughout Skin: no rashes, warm and dry multiple scabbed lesions BL pretibial Neurologic: cook, fluent speech, no tremor Psychiatric: Orientation: alert and oriented x 3 Results & Data Vital Signs (Past 12 Hours) Vital Signs Temp Pulse Pulse Resp BP Pulse Ox O2 Del Method 12/02/24 16:20 36.3 C L 92 H 18 108/64 96 Room Air 12/02/24 12:08 36.8 C 104 H 20 125/70 95 Room Air 12/02/24 09:00 Room Air 12/02/24 08:22 36.6 C 98 H 20 119/66 96 Room Air 12/02/24 08:00 113 H Laboratory Results 12/02/24 05:37 12/02/24 05:37 (3) Hypotension Hypotension type: unspecified hypotension type Qualified Code(s): I95.9 - Hypotension, unspecified
--- NOTE | 2024-12-02 16:50 | Hospitalist Progress Note ---
Date of Service December 02, 2024 Assessment & Plan (1) Metabolic encephalopathy: (2) Sepsis: (3) Alcohol withdrawal: (4) Liver failure: Plan: (1) Alcohol withdrawal: Plan: (1) ARF (acute renal failure): (2) Cirrhosis: (3) Sepsis: Plan Pt is a 59yoM with PMhx significant for alcoholism, thrombocytopenia, HTN, history of bilateral hearing loss, congenital cataracts to both eyes who presents from home with family members out of concern for his mental status and inability to move at home. Pt admitted to the ICU. Acute Metabolic/Toxic Encephalopathy Multifactorial: Sepsis, Alcoholism, Liver failure Pt altered Hx of alcohol abuse, last drink per family the night before Head CT with past stroke and concerning for sinusitis Ammonia elevated at 85 Alcohol level <10 AWSS protocol Delirium precautions, assistive hearing and visual devices as needed Continue to monitor 11/26 Oriented x 3, to baseline mental status Management of sepsis, alcoholism, liver failure. Below Sepsis with Shock Bacteremia- Staph hominis Lower Extremity Wounds, cellulitis Pt with leukocytosis, tachycardia Procalcitonin elevated Lactate elevated BP initially soft UA suggestive of infection, urine cx negat. Blood Cx x 2 Ordered Pt with excoriated healing skin lesions especially on his lower extremities CT head noting sinusitis given IV Zosyn and Daptomycin CXR: no acute process CT abd/pelvis: no infection Blood culture: Staph hominis 2nd blood culture: Negative Urine Cx: Negative 11/26 ID consulted and recommendations noted, transitioned to linezolid p.o., last day 11/27 LE edema much improved, RLE >LLE, obtained doppler to r/o dvt - negat. for dvt Diabetes type 2 New diagnosis presented with hyperglycemia A1c 10.1 ?HHS picture ICU hyperglycemia protocol Glycemic consult Collar Feller 11/26 Continue with insulin Lantus and insulin Cirrhosis/Liver Failure/ possible alcoholic hepatitis Chronic alcohol use Pt with long history of alcohol abuse Liver enzymes significantly elevated Ammonia level elevated CT abd/pelvis noting worsening cirrhosis and minimal ascites Thiamine and folic acid supplements 11/26 Indirect bilirubinemia still elevated but trending down AST/ALT still trending up repeat ammonia pending melena reported initially, Hg remains ~ 10, no recurrence of melena requested GI to reevaluate the patient if ammonia level normal, DC lactulose Continue Protonix IV twice a day 11/27 Pt seen by GI, lactulose stopped, cont. rifaximin. Obtain abd. US and evaluate for ascites 11/28 No ascites on US. + pl. effusion, CXR obtained - R pl. effusion - pulmonary consulted, no thoracentesis at this time, monitor if symptoms worsen. Discussed w/ ID as well, no need for cont. abx at this time. 11/29 Per nephrology - cont. torsemide 40 bid, spironolactone 25 bid, K supplement, Mag supplement Acute Kidney Injury, hyponatremia, hypokalemia Cr elevated at 3.15 on admission IV fluids given 11/26 Creatinine further improving, currently 1.2 midodrine continued Positive lower extremity edema today, IV Lasix ordered x 1 dose today, transitioned from PO Lasix to Torsemide Nephro on board 11/27 Na 129, Cr 1.6 Nephrology continues to follow closely cont. torsemide, spironolactone replete K 11/28 Na 133, Cr 1.6 Nephrology continues to follow closely cont. torsemide, spironolactone replete K 12/02 Cr stable at 1.6. Fluid status much improved, LE edema resolved Anemia, Thrombocytopenia likely from Sepsis, Alcoholism anemia panel: ok Peripheral smear: The findings are that of normocytic anemia, thrombocytopenia and neutrophilia. Cytopenia's are relatively common in cirrhosis. The neutrophilia is consistent with history of sepsis. did not received heparin 11/26 Hemoglobin remained stable around 10-11 Platelet count remained around 70-90K Monitor CBC while on linezolid Alcoholism -- No overt signs of withdrawal given Gabapentin protocol Hyperkalemia resolved Acute on Chronic Hyponatremia Pt with chronic alcohol hx and chronic hyponatremia Also superimposed pseudohyponatremia in setting of hyperglycemia resolving, as above DVT prophylaxis: Lovenox 40 subcu daily. monitor Plt CODE STATUS: full code [email or web address] Admission and Anticipated Discharge Date Admission Date: November 20, 2024 Subjective Follow-up for acute metabolic encephalopathy, possible sepsis, acute renal failure, liver failure/alcoholic hepatitis, etc. Seen resting in chair, comfortable, not in distress +LE edema b/l much improved/resolved -> obtained Doppler to check for DVT - negat. for DVT Denies chest pain, shortness of breath, or abdominal pain Nephrology and GI consulted - diuretics adjusted Plan to DC to [facility] , CM involved Review of Systems Review of Systems: All systems reviewed & are unremarkable except as noted in Subjective Physical Exam Physical Exam: General- oriented x 3, not in distress, speaks in sentences with no effort or accessory muscle use Eyes- anicteric Neck- no JVD Lungs- decreased breath sounds, no rales/wheezes Heart- normal rate, regular rhythm; no murmurs Abdomen- normal bowel sounds, nondistended, soft, nontender Extremities- + b/l lower extremity edema much improved/resolved, healing excoriated scabbed wounds, no erythema/warmth/tenderness Neuro- alert, oriented x 3; no gross focal neurologic deficits Skin- warm & dry Results & Data Results & Data Vital Signs (Past 12 Hours) Vital Signs Temp Pulse Pulse Resp BP Pulse Ox O2 Del Method 12/02/24 16:20 36.3 C L 92 H 18 108/64 96 Room Air 12/02/24 12:08 36.8 C 104 H 20 125/70 95 Room Air 12/02/24 09:00 Room Air 12/02/24 08:22 36.6 C 98 H 20 119/66 96 Room Air 12/02/24 08:00 113 H Laboratory Results 12/02/24 12/02/24 12/02/24 Range/Units 16:17 11:18 07:20 WBC (4.8-10.8) K/ul RBC (4.70-6.10) M/uL Hgb (14.0-18.0) g/dl Hct (42.0-52.0) % MCV (80.0-100.0) fL MCH (25.0-34.0) pg MCHC (32.0-36.0) g/dL RDW Std Deviation (36.4-46.3) fL RDW Coeff of Martir (11.5-14.5) % Plt Count (130-400) K/uL MPV (9.4-12.4) fL Sodium (136-145) mmol/L Potassium (3.5-5.1) mmol/L Chloride (98-107) mmol/L Carbon Dioxide (21-32) mmol/L Anion Gap (3-11) BUN (6-23) mg/dl Creatinine (0.6-1.4) mg/dl Est Cr Clr Drug Dosing ml/min eGFR BUN/Creatinine Ratio (10-20) Glucose (70-99(Fasting)) mg/dl POC Glucose 190 H 102 H 148 H (70-99) mg/dl Calcium (8.6-10.3) mg/dl Phosphorus (2.5-4.9) mg/dl Magnesium (1.7-2.4) mg/dl 12/02/24 12/01/24 Range/Units 05:37 20:17 WBC 5.75 (4.8-10.8) K/ul RBC 2.69 L (4.70-6.10) M/uL Hgb 9.0 L (14.0-18.0) g/dl Hct 25.4 L (42.0-52.0) % MCV 94.4 (80.0-100.0) fL MCH 33.5 (25.0-34.0) pg MCHC 35.4 (32.0-36.0) g/dL RDW Std Deviation 51.5 H (36.4-46.3) fL RDW Coeff of Martir 15.0 H (11.5-14.5) % Plt Count 57 L (130-400) K/uL MPV 10.9 (9.4-12.4) fL Sodium 133 L (136-145) mmol/L Potassium 4.2 (3.5-5.1) mmol/L Chloride 92 L (98-107) mmol/L Carbon Dioxide 36 H (21-32) mmol/L Anion Gap 5 (3-11) BUN 38 H (6-23) mg/dl Creatinine 1.63 H (0.6-1.4) mg/dl Est Cr Clr Drug Dosing 45.9 ml/min eGFR 47.94 BUN/Creatinine Ratio 23.3 H (10-20) Glucose 120 H (70-99(Fasting)) mg/dl POC Glucose 146 H (70-99) mg/dl Calcium 9.1 (8.6-10.3) mg/dl Phosphorus 4.3 (2.5-4.9) mg/dl Magnesium 1.5 L (1.7-2.4) mg/dl Medications Administered Current Inpatient Medications Albuterol (Albuterol Hfa 8 Gm Inhaler) 2 puffs INH Q6H PRN PRN Reason: SOB/Wheezing Stop: 12/20/24 21:48 Dextrose (Dextrose 50% 50 Ml Syringe) 25 - 50 ml IV UD PRN; Protocol PRN Reason: Hypoglycemia Protocol Stop: 12/20/24 20:29 Folic Acid (Folic Acid 1 Mg Tab) 1 mg PO QAM OLIVIA Stop: 12/27/24 08:59 Last Admin: 12/02/24 08:37 Dose: 1 mg Glucagon (Glucagon For Inj 1 Mg Vial) 1 mg SQ UD PRN; Protocol PRN Reason: Hypoglycemia Protocol Stop: 12/20/24 20:29 Glucose (Glucose 40% Gel 15 Gm Tube) 15 - 30 gm PO UD PRN; Protocol PRN Reason: Hypoglycemia Protocol Stop: 12/20/24 20:29 Glucose (Glucose 10 Tab/Tube) 4 - 8 tab PO UD PRN; Protocol PRN Reason: Hypoglycemia Protocol Stop: 12/20/24 20:29 Magnesium Sulfate/Dextrose (Magnesium Sulfate / D5w) 1 gm in 100 mls @ 50 mls/hr IV ONE ONE Stop: 12/02/24 18:46 Insulin Aspart (Insulin Aspart Per Unit Charge) 0 units SC DAILY@0730 OLIVIA Stop: 12/28/24 07:29 Last Admin: 12/02/24 08:36 Dose: 17 units Insulin Aspart (Insulin Aspart Per Unit Charge) 0 units SC TID@1130,1630,2100 [facility] Stop: 12/27/24 16:29 Last Admin: 12/02/24 11:47 Dose: 5 units Insulin Glargine (Lantus Per Unit Charge) 35 units SC DAILY OLIVIA Stop: 12/24/24 08:59 Last Admin: 12/02/24 08:36 Dose: 35 units Lactobacillus Acidophilus (Advanced Probiotic 625 Mg Capsule) 1,250 mg PO DAILY OLIVIA Stop: 12/23/24 17:59 Last Admin: 12/02/24 08:38 Dose: 1,250 mg Lorazepam (Lorazepam 1 Mg Tab) 1 mg PO ONE PRN; Protocol PRN Reason: EtoH Withdrawal AWSS 6,7,8,9,10 Lorazepam (Lorazepam 2 Mg/1 Ml Vial) 1 mg IV ONE PRN; Protocol PRN Reason: EtoH Withdrawal AWSS 6-10 Lorazepam (Lorazepam 2 Mg/1 Ml Vial) 1 mg IV ONE PRN; Protocol PRN Reason: EtoH Withdrawal AWSS 6-10 Magnesium Chloride (Magnesium Chloride W/Calcium 64mg Delayed Rel Tab) 64 mg PO BID OLIVIA Stop: 12/28/24 11:29 Last Admin: 12/02/24 08:39 Dose: 64 mg Midodrine (Midodrine Hcl 2.5 Mg Tab) 2.5 mg PO TID@0800,1200,1700 OLIVIA Stop: 12/31/24 16:59 Last Admin: 12/02/24 11:47 Dose: 2.5 mg Miscellaneous (Carbohydrates For Hypoglycemia ) 15 - 30 gm PO UD PRN PRN Reason: Hypoglycemia Treatment Stop: 12/20/24 20:29 Miscellaneous Information (Pharmacy Glycemic Mgmt Consult) 1 each N/A UD PRN; Protocol PRN Reason: Consult Stop: 12/20/24 20:35 Multi-Ingredient Cream (Eucerin Cr 120 Gm Jar) 1 appln EXT BID OLIVIA Stop: 12/26/24 12:29 Last Admin: 12/02/24 08:39 Dose: 1 appln Pantoprazole Sodium (Pantoprazole 40 Mg Tab) 40 mg PO BID OLIVIA Stop: 12/26/24 20:59 Last Admin: 12/02/24 08:38 Dose: 40 mg Potassium Chloride (Potassium Chloride Crtab 20 Meq Tabcr) 40 meq PO BID OLIVIA Stop: 12/28/24 20:59 Last Admin: 12/02/24 08:37 Dose: 40 meq Rifaximin (Rifaximin 550 Mg Tablet) 550 mg PO BID OLIVIA Stop: 12/27/24 20:59 Last Admin: 12/02/24 08:38 Dose: 550 mg Spironolactone (Spironolactone 25 Mg Tab) 25 mg PO BID OLIVIA Stop: 12/28/24 20:59 Last Admin: 12/02/24 08:39 Dose: 25 mg Thiamine HCl (Thiamine Hcl 100 Mg Tab) 100 mg PO DAILY OLIVIA Stop: 12/24/24 08:59 Last Admin: 12/02/24 08:38 Dose: 100 mg Torsemide (Torsemide 20 Mg Tab) 40 mg PO BID OLIVIA Stop: 12/26/24 20:59 Last Admin: 12/02/24 08:38 Dose: 40 mg (4) Liver failure Hepatic coma status: without hepatic coma Liver failure chronicity: subacute Qualified Code(s): K72.00 - Acute and subacute hepatic failure without coma
[2024-12-03 06:24] LABS: Hematocrit (blood only) 27.5 % (42.0-52.0); Hemoglobin 9.5 g/dl (14.0-18.0); Mean Corpuscular Hemoglobin 32.8 pg (25.0-34.0); Mean Corpuscular Hgb Conc 34.5 g/dL (32.0-36.0); Mean Corpuscular Volume 94.8 fL (80.0-100.0); Mean Platelet Volume 10.2 fL (9.4-12.4); Platelet Count 47 K/uL (130-400); RDW Coefficient of Variation 14.1 % (11.5-14.5); White Blood Count 6.32 K/ul (4.8-10.8)
[2024-12-03 06:49] LABS: BUN Creatinine Ratio 23.6 (10-20); Creatinine Clr Calc Pharmacy 46.5 ml/min; Magnesium 1.4 mg/dl (1.7-2.4); Phosphorus 4.4 mg/dl (2.5-4.9); Potassium 4.2 mmol/L (3.5-5.1)
[2024-12-03 07:46] VITALS: PULSE 102; RESP 20; TEMP 98.2; O2SAT 95
--- NOTE | 2024-12-03 09:44 | Nephrology Progress Note ---
Date of Service December 03, 2024 Assessment & Plan (1) CEE (acute kidney injury): Plan: plateaud Stage 2 acute kidney injury due to ischemic ATN in setting of staph hominis bacteremia and decompensated cirrhosis. Admission cr 3.1. prior baseline cr 1.2 in January 2024. Cr now at 1.6 again today and past several days. he is making urine. BP remains on the lower side but he's ambulating. -stabel mild hyponatremia > treat w/ loop diuretic, monitor Na on spironolactone; monitor on now liberalized FR to 2L - will continue midodrine 2.5mg tid. -Monitor input/output -daily STANDING weight > 76.2 kg 12/02 < 78.2 on 11/30 -daily bmp Will sign off; care communicated by TText w/ Dr Mcelroy re d/c recs as below and med changes; we are in agreement NEPHRO D/C NOTE: DX: stage 2 CEE from ischemic ATN, electrolyte disorders, decompensated cirrhosis, Staph hominis bacteremia, EtOH withdrawal D/C MEDS: -torsemide 40 mg bid -klorcon 40 mEq bid -spironolactone 25 mg bid -midodrine 2.5 mg tid -protonix 40 mg bid >> suggest lowering as feasible d/t hypomagnesmia to 40 mg daily and wean -slow mag 2 tabs bid OTHER D/C RECOMMENDATIONS: -STANDING AM weight MWF per heart failure protocols and BP those days -<2 gm daily sodium diet -EtOH abstinence -1.8L fluid limit -Labs for neph appt and weekly bmp and mag x 4 wks F/U: -hospital d/c appt w/ Dr Lucas or myself in 2 wks w/ neph nurse to order serum/urine osms, urine electrolytes, cmp, mag, UACM, ACR, cbc, t sat, ferritin; pls send log of wts and BP along to clinic appt -suggest he follow w/ GI > either reestablish w/ [facility] or f/u w/ [facility] as OP re EtOH cirrhosis (2) Cirrhosis: Plan: he has decompensated cirrhosis with ascites. cont torsemide 40 mg bid, K 40 mEq bid, spironolactone 25 mg bid ->>>increased slow mag dose (3) Hypotension: Plan: Due to sepsis. We are giving midodrine as above. Admission and Anticipated Discharge Date Admission Date: November 20, 2024 Subjective waiting on insurance auth for placement; no interval clinical events; denies increased edema or dyspnea. tolerating po. Review of Systems 2 Review of Systems: All systems reviewed & are unremarkable except as noted in Subjective Physical Exam 2 Constitutional: well developed, well nourished, + behavioral limitations and cooperative; no acute distress Eyes: EOM intact bilaterally and + nystagmus ENMT: Ears: + hearing impairment Mouth: + dry oral mucous membranes Respiratory: normal respiratory effort Auscultation: + diminished lung sounds Cardiovascular: Rate/Rhythm: + tachycardic Heart Sounds: + murmur E xtremities: no edema Gastrointestinal (Abdomen): Inspection/Auscultation: normal bowel sounds P ercussion/Palpation: abdomen soft; abdomen nontender Musculoskeletal: Extremities: strength 5/5 throughout Skin: no rashes, warm and dry scabbed pretibial lesions multiple BL none appear inflamed Psychiatric: Orientation: alert and oriented x 3 Results & Data Vital Signs (Past 12 Hours) Vital Signs Temp Pulse Pulse Resp BP BP Pulse Ox 12/03/24 07:45 36.8 C 102 H 20 118/68 95 12/03/24 03:24 36.6 C 115 H 16 101/68 96 12/03/24 00:00 99 H 12/02/24 23:14 36.7 C 99 H 14 116/75 92 O2 Del Method 12/03/24 07:45 Room Air 12/03/24 03:24 Room Air 12/03/24 00:00 12/02/24 23:14 Room Air Laboratory Results 12/03/24 05:46 12/03/24 05:46 (3) Hypotension Hypotension type: unspecified hypotension type Qualified Code(s): I95.9 - Hypotension, unspecified
[2024-12-03] MEDS: MAGNESIUM CHLORIDE W/CALCIUM 64MG DELAYED REL TAB PO ONE (10:26)
[2024-12-03] MEDS: MAGNESIUM SULFATE / D5W 1 GM/100 ML BAG IV ONE (10:26)
--- NOTE | 2024-12-03 11:07 | Pharmacy Report ---
Pharmacy Glycemic Short Note 2 - Date of Service December 03, 2024 - Glycemic Short BSG Results (Last 24 hours): 12/02/24 12/02/24 12/02/24 05:37 11:18 16:17 Glucose 120 H POC Glucose 102 H 190 H 12/02/24 12/03/24 12/03/24 20:57 05:46 07:03 Glucose 128 H POC Glucose 170 H 133 H OUTPATIENT ANTIDIABETIC REGIMEN: * n/a HbA1C: 10.1% ASSESSMENT: 12/03: * Stressors stable * AM fasting BSG in goal range - no change * Lunch BSG yesterday appropriately decraesed from prior after tightening breakfast Novolog. But post-prandial BSG's at dinner and HS increased significantly yesterday after loosening Novolog at lunch, dinner, HS. Will slightly tighten CHO ratio, but not quite to what it was previously that may have contributed to a BSG below goal. 12/02: * BSGs 162-497-28-146 mg/dL over the past 24 hours. Fasting 148 mg/dL today. Patient received 35 units of basal insulin, 27 units bolus. * Lunchtime BSG continues to be elevated at times. Novolog CR further increased for breakfast coverage only, today's lunch BSG much better at 102 mg/dL. Will slightly loosen lunch and dinner CR. No change in diet order. 11/29: * BSGs 637-593-36-55-166mg/dL the last 24h. Trending on higher end in the AM/lunch and then low at dinner/HS. Received 30 units of basal and 48 units of bolus insulin yesterday. Hypoglycemic last night at HS. * Given fasting BSGs in 160s the last 2 days, will titrate basal further to 35 units qAM. Novolog breakfast parameters continued/no change. Loosened lunch/dinner/HS given BSGs trending down in the evening. 11/27 * Fasting 117 mg/dL- will continue with 30 units of lantus qAM. SCr increase today- monitor * Lunch BSG continues to be elevated with improved BSGs later in day. Will tighten carb ratio with breakfast and lunch. 11/26: * Patient received a total of 55 units of insulin yesterday 3 of which was basal. Fasting BSG within goal at 135 mg/dL today. Will continue current Lantus dosing. * Novolog was tightened for breakfast and lunch today and while there was some improvement noted, CR may need to be tightened further tomorrow. * Abx transitioned to PO linezolid yesterday. 11/25: * BSGs somewhat improved yesterday after basal/bolus changes. BSGs were 157-279 -218-137 mg/dL. Fasting BSG acceptable at 140 mg/dL. * May tighten breakfast and lunchtime CR tomorrow after today's trend assessed. 11/22: * BSGs elevated the last 24h: [phone]/dL. Pt received 15 units of basal and 21 units of bolus insulin yesterday. * Has been NPO until today @ lunch- diet resumed. Continues on IV antibiotics. * Given elevated fasting BSG > 250mg/dL will titrate basal insulin to 0.3unit/kg/day. Novolog tightened at lunch given BSGs likely to increase further with resumption of diet. Will add overnight checks. 11/21: * Pt is a 59 YOM admitted with sepsis, hepatic encephalopathy, and hyperglycemia. No history of DM diagnosis and on no DM medications @ home- A1C 10.1%. Pharmacy consulted to assist with inpatient glycemic management. * BSG on arrival 554mg/dL. Trended down into mid-200s this AM. Insulin drip initiated last evening per DKA protocol although transitioned to SQ quickly given labs not consistent with DKA. Received 15 units of SQ basal and 19 units of bolus insulin last evening. BSG this AM -246mg/dl. * Continues on IV antibiotics and remains NPO. * Continue Lantus 15 units HS (~0.2unit/kg) given continued NPO. Novolog q6 moderate-severe stress scale. PLAN FOR INPATIENT GLYCEMIC CONTROL: * Hold outpatient oral diabetes medications * Basal insulin * Lantus 35 units qAM * Bolus insulin * NovoLog per scale ACHS or Q6hrs while NPO * Goal Range: Low 110 mg/dL - High 140 mg/dL * Correction Factor: 20 mg/dL/unit (breakfast), 25 mg/dl/unit (lunch, dinner, HS) * Nutritional / Prandial insulin per carb ratio of 1 unit per 3 (breakfast), 8 (lunch, dinner, HS) grams CHO consumed
--- NOTE | 2024-12-03 12:15 | Discharge Summary ---
Date of Service December 03, 2024 Admission HPI Per Admitting Provider Pt is a 59yoM with PMhx significant for alcoholism, thrombocytopenia, HTN, history of bilateral hearing loss, congenital cataracts to both eyes who presents from home with family members out of concern for his mental status and inability to move at home. Pt admitted to the ICU. Patient pleasantly confused on exam. Additional history obtained from patient's sister via telephone. She states that the patient was found by their cousin Rox who called 911 after she noted that he was altered mentally and could not talk or could not get up. She notes that he is a chronic alcoholic and has been for the last 15 to 20 years. States that for the last month he has been drinking at least three to four of a [id number] . She states that though this morning he was found with a cold beer next to him, it was untouched. Believes that his last drink was the night before. States that he was not even able to have his beer and that was concerning to the family. Admission Exam Per Admitting Provider General: Alert, not oriented. CV: RRR Resp: Breath sounds clear bilaterally, no increased effort of breathing Abdomen: Soft, nontender Extremities: excoriated lesions on lower extremities bilaterally. Principal Diagnosis Metabolic encephalopathy Sepsis, bacteremia Liver failure CEE Alcohol withdrawal Discharge Exam General- oriented x 3, not in distress, speaks in sentences with no effort or accessory muscle use Eyes- anicteric Neck- no JVD Lungs- decreased breath sounds, no rales/wheezes Heart- normal rate, regular rhythm; no murmurs Abdomen- normal bowel sounds, nondistended, soft, nontender Extremities- + b/l lower extremity edema much improved/resolved, healing excoriated scabbed wounds, no erythema/warmth/tenderness Neuro- alert, oriented x 3; no gross focal neurologic deficits Skin- warm & dry Discharge Data Allergies Allergy/AdvReac Type Severity Reaction Status Date / Time No Known Allergies Allergy Verified 04/04/21 18:18 Consultations 11/20/24 18:35 Consult Skoog Operator Routine 11/21/24 01:07 Consult Gastroenterology Routine 11/22/24 09:12 Consult Infectious Diseases Routine 11/22/24 17:52 Consult Nephrology Routine 11/28/24 11:22 Consult Pulmonology Routine Ordered Studies 11/20/24 15:19 CT head/brain wo con Stat Findings: There is no sign of intracranial hemorrhage. There is an apparent old infarct of the left basal ganglia and the anterior limb of the left internal capsule, new since the prior study. No clear acute infarct is seen. No midline shift or other form of herniation is identified. There is no hydrocephalus. No obvious mass lesion is seen on this noncontrast examination. There is near complete opacification of the left maxillary sinus due to mucosal thickening and fluid. The mastoid air cells appear clear Impression: 1. 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 Left maxillary sinusitis 11/20/24 16:12 CT abd pelvis wo con Stat Findings: The liver is shrunken and nodular in contour, consistent with cirrhosis. No definite liver mass lesion is seen on this noncontrast study. The gallbladder appears unremarkable. No bile duct dilatation is noted. The spleen is of normal size. No focal splenic lesion is evident. The pancreas appears normal with no sign of acute or chronic pancreatitis and no mass lesion noted. The pancreatic duct is of normal caliber. The adrenal glands appear unremarkable. No renal or proximal ureteral calculi are seen. There is no hydronephrosis or perinephric stranding. No definite renal mass lesion is identified. There is right renal cortical scarring The aorta is of normal caliber. No abdominal adenopathy is seen. The stomach appears normal. There is no sign of small bowel obstruction. The colon appears unremarkable. There is no definite sign of appendicitis. No free intraperitoneal air is identified. There is a minimal amount of ascites No distal ureteral or bladder calculi are seen. No obvious bladder mass lesion is evident. The iliac arteries are of normal caliber. No pelvic adenopathy is noted. There are small bilateral inguinal hernias containing only fat The lungs bases appear clear. No fracture is identified. No focal osseous lesion is seen Impression: 1. Cirrhosis, worsened since the prior study 2. Minimal amount of ascites 3. Small bilateral inguinal hernias containing only fat 11/27/24 14:19 US abdomen ltd ascites Routine FINDINGS: There is no ascites within the abdomen or pelvis. Bilateral pleural effusions are incidentally noted. IMPRESSION: 1. No ascites. 2. Incidentally noted bilateral pleural effusions. 11/30/24 11:55 US venous doppler LE BI Routine FINDINGS: Right deep veins: No DVT in the right common femoral, femoral or popliteal veins. The veins demonstrate normal color flow, are normally compressible, with normal phasic flow and/or augmentation response. Right superficial veins: No abnormality noted. No thrombus in the visualized right great saphenous vein. Left deep veins: No DVT in the left common femoral, femoral or popliteal veins. The veins demonstrate normal color flow, are normally compressible, with normal phasic flow and/or augmentation response. Left superficial veins: No abnormality noted. No thrombus in the visualized left great saphenous vein. Soft tissues: There is mild bilateral subcutaneous edema. No fluid collection. IMPRESSION: No deep venous thrombosis of either lower extremity. 11/30/24 16:46 CT angio chest PE protocol Routine FINDINGS: Pulmonary arteries: No abnormality noted. No pulmonary embolism. Aorta: No acute change noted. No thoracic aortic aneurysm or dissection. Lungs and pleural spaces: Small to moderate right layering pleural effusion with compressive atelectasis of portions of the right lower lobe. There are a few scattered small calcified granulomata on the right lung. No bronchiectasis, honeycombing or reticulation. No mass. No pneumothorax. Heart: Mild cardiomegaly. No right heart strain. No pericardial effusion. Bones/joints: No acute or atypical chronic changes. Soft tissues: No abnormality noted. Lymph nodes: No abnormality noted. No enlarged lymph nodes. Liver: The visualized portion of the liver is cirrhotic. No mass identified. No ductal dilatation noted. IMPRESSION: 1. No pulmonary embolus noted. 2. Small to moderate right pleural effusion with partial compressive collapse of the right lower lobe. 3. Cirrhotic liver. Diabetes Follow up Diabetes Follow-up Needed for Newly Diagnosed Diabetes Hospital Course (1) Metabolic encephalopathy: (2) Sepsis: (3) Alcohol withdrawal: (4) Liver failure: (1) Alcohol withdrawal: Plan: (1) ARF (acute renal failure): (2) Cirrhosis: (3) Sepsis: Plan Pt is a 59yoM with PMhx significant for alcoholism, thrombocytopenia, HTN, history of bilateral hearing loss, congenital cataracts to both eyes who presents from home with family members out of concern for his mental status and inability to move at home. Pt admitted to the ICU. Acute Metabolic/Toxic Encephalopathy Multifactorial: Sepsis, Alcoholism, Liver failure Pt altered Hx of alcohol abuse, last drink per family the night before Head CT with past stroke and concerning for sinusitis Ammonia elevated at 85 Alcohol level <10 AWSS protocol Delirium precautions, assistive hearing and visual devices as needed Continue to monitor 11/26 Oriented x 3, to baseline mental status Management of sepsis, alcoholism, liver failure. Below Sepsis with Shock Bacteremia- Staph hominis Lower Extremity Wounds, cellulitis Pt with leukocytosis, tachycardia Procalcitonin elevated Lactate elevated BP initially soft UA suggestive of infection, urine cx negat. Blood Cx x 2 Ordered Pt with excoriated healing skin lesions especially on his lower extremities CT head noting sinusitis given IV Zosyn and Daptomycin CXR: no acute process CT abd/pelvis: no infection Blood culture: Staph hominis 2nd blood culture: Negative Urine Cx: Negative 11/26 ID consulted and recommendations noted, transitioned to linezolid p.o., last day 11/27 LE edema much improved, RLE >LLE, obtained doppler to r/o dvt - negat. for dvt Diabetes type 2 New diagnosis presented with hyperglycemia A1c 10.1 ?HHS picture ICU hyperglycemia protocol Glycemic consult Clinical Dietitian 11/26 Continue with insulin Lantus and insulin 12/03 Pt currently on 35 units of Lantus On discharge per SNF - per family living educator recs DISCHARGE RECOMMENDATIONS: 1.) Lantus 1x/day in AM + oral agent. 2.) Start FreeStyle Libre3 sensor at time of discharge back home. 3.) Notify provider of BG values frequently above/below target. 4.) Lifestyle changes- balanced meals with protein/vegetables, limit portion sizes of carbs/starches. PRESCRIPTIONS NEEDED AT DISCHARGE: 1.) Lantus Solostar Pen. 2.) Pen Needle (non-branded) 32 gauge x 5/32 (4mm)- to inject 1x/day. 3.) Diabetes oral agent. 4.) Contour Next Test Strips- to check 3x/day. 5.) Microlet Lancets- to check 3x/day. 6.) FreeStyle Libre3 Plus sensor- change sensor every 15 days. 2 each/30 days. *outpatient provider will need to submit prior authorization/order FreeStyle Libre3 Plus sensor. *Insurance requires diagnosis code and frequency of use be indicated on the prescription for all diabetes supplies- test strips, lancets, insulin pen needles. Cirrhosis/Liver Failure/ possible alcoholic hepatitis Chronic alcohol use Pt with long history of alcohol abuse Liver enzymes significantly elevated Ammonia level elevated CT abd/pelvis noting worsening cirrhosis and minimal ascites Thiamine and folic acid supplements 11/26 Indirect bilirubinemia still elevated but trending down AST/ALT still trending up repeat ammonia pending melena reported initially, Hg remains ~ 10, no recurrence of melena requested GI to reevaluate the patient if ammonia level normal, DC lactulose Continue Protonix IV twice a day 11/27 Pt seen by GI, lactulose stopped, cont. rifaximin. Obtain abd. US and evaluate for ascites 11/28 No ascites on US. + pl. effusion, CXR obtained - R pl. effusion - pulmonary consulted, no thoracentesis at this time, monitor if symptoms worsen. Discussed w/ ID as well, no need for cont. abx at this time. 11/29 Per nephrology - cont. torsemide 40 bid, spironolactone 25 bid, K supplement, Mag supplement DC Nephrology recs DX: stage 2 CEE from ischemic ATN, electrolyte disorders, decompensated cirrhosis, Staph hominis bacteremia, EtOH withdrawal D/C MEDS: -torsemide 40 mg bid -klorcon 40 mEq bid -spironolactone 25 mg bid -midodrine 2.5 mg tid -protonix 40 mg bid >> suggest lowering as feasible d/t hypomagnesmia to 40 mg daily and wean -slow mag 2 tabs bid OTHER D/C RECOMMENDATIONS: -STANDING AM weight MWF per heart failure protocols and BP those days -<2 gm daily sodium diet -EtOH abstinence -2L fluid limit -Labs for neph appt and weekly bmp and mag x 4 wks F/U: -hospital d/c appt w/ Dr Lucas or Dr. Zee in 2 wks w/ neph nurse to order serum/urine osms, urine electrolytes, cmp, mag, UACM, ACR, cbc, t sat, ferritin; pls send log of wts and BP along to clinic appt -suggest he follow w/ GI > either reestablish w/ [facility] or f/u w/ [facility] as OP re EtOH cirrhosis Acute Kidney Injury, hyponatremia, hypokalemia Cr elevated at 3.15 on admission IV fluids given 11/26 Creatinine further improving, currently 1.2 midodrine continued Positive lower extremity edema today, IV Lasix ordered x 1 dose today, transitioned from PO Lasix to Torsemide Nephro on board 11/27 Na 129, Cr 1.6 Nephrology continues to follow closely cont. torsemide, spironolactone replete K 4/10 Na 133, Cr 1.6 Nephrology continues to follow closely cont. torsemide, spironolactone replete K 4/ Cr stable at 1.6. Fluid status much improved, LE edema resolved Nephrology Discharge recs as above Anemia, Thrombocytopenia likely from Sepsis, Alcoholism anemia panel: ok Peripheral smear: The findings are that of normocytic anemia, thrombocytopenia and neutrophilia. Cytopenia's are relatively common in cirrhosis. The neutrophilia is consistent with history of sepsis. did not received heparin 11/26 Hemoglobin remained stable around 10-11 Platelet count remained around 70-90K Monitor CBC while on linezolid 12/03 Plt count down 50s - recommend to repeat CBC in a week Alcoholism -- No overt signs of withdrawal given Gabapentin protocol Hyperkalemia resolved Acute on Chronic Hyponatremia Pt with chronic alcohol hx and chronic hyponatremia Also superimposed pseudohyponatremia in setting of hyperglycemia resolving, as above CODE STATUS: full code Dispo: Plan to DC to [facility] Total Time Total Time Spent Total Time Spent (In Minutes): 60 Discharge Plan Discharge Items Patient Disposition: Transfer [facility] Fac Reason For Visit: AMS Discharge Diagnosis: Metabolic encephalopathy Sepsis, bacteremia Liver failure CEE Alcohol withdrawal Condition on Discharge: Good Activity: Per Instructions section Non-emergency contact: Primary Care Provider, Specialist, Beer Merchant and Manager Wound Care Call non-emergency contact if: you have any medication questions and your symptoms worsen Follow-up/Referrals: Luly Guajardo PA-C [Primary Care Provider] - Diet: Carb Consistent or DM2 and Heart Healthy Addtl Attending Provider Instructions: Follow up with primary care doctor, nephrology, gastroenterology. You were started on several new medications, take them as prescribed. You were also diagnosed with diabetes and started on insulin. You will need very close follow up for your diabetes - and monitoring your blood sugar levels. Addtl Medical Director Occupational Health Provider Instructions: DIABETES RECOMMENDATIONS: - Once you get back home, start the FreeStyle Libre3 continuous glucose monitor sensor. You were provided a booklet to help guide you with inserting the sensor. You will then have to go into the mark anthony on your phone to start and scan the sensor. Your sister may be able to help you with this until you get the hang of it. - This device will automatically check your blood sugar thru the day. There are alarms that can be turned off if they are going off to often. To do this, click on the menu button (3 small lines) in the upper left corner. Then click on alarms. - You will need to reach out to your primary care provider to get a prescription for additional FreeStyle Libre3 Plus sensors. It may require prior authorization, which your provider can submit. - Please notify your provider of blood sugar levels frequently above 180 or below 90. - Diabetes medication is being added to help improve blood sugar levels. - Lifestyle changes are also encouraged- regular/balanced meals thru day, try to include protein/vegetables with your meals, try to choose smaller portions of carbs/starches, and avoid juice and sugar-sweetened drinks. - Please call our diabetes office if you have any questions or concerns at [phone]. Pending Studies at Discharge: No Stand-Alone Forms: [facility] Skilled Items Patient informed of condition?: Yes DNR: No Discharge Level of Care: Skilled Communicable Disease: No Discharge Prognosis: Stable Lines: None Urinary Catheter: No Medications and DC Order Prescriptions: New Xifaxan 550 mg Tablet 550 mg PO BID Qty: 60 0RF midodrine 2.5 mg Tablet 2.5 mg PO TID@0800,1200,1700 Qty: 60 0RF thiamine HCl (vitamin B1) 100 mg Tablet 100 mg PO DAILY Qty: 30 0RF folic acid 1 mg Tablet 1 mg PO QAM Qty: 30 0RF Dermacerin Cream 1 applic EXT BID Qty: 454 0RF insulin glargine [Lantus U-100 Insulin] 100 unit/mL Solution 35 unit SC DAILY Qty: 10 0RF pantoprazole 40 mg Tablet,Delayed Release (Dr/Ec) 40 mg PO DAILY Qty: 30 0RF Advanced Probiotic 625 mg (10 billion cell) Capsule 1 cap PO DAILY Qty: 7 0RF spironolactone 25 mg Tablet 25 mg PO BID Qty: 60 0RF magnesium chloride [Mag 64] 64 mg Tablet,Delayed Release (Dr/Ec) 128 mg PO BID Qty: 60 0RF torsemide 40 mg tablet 40 mg PO BID Qty: 60 0RF potassium chloride 20 mEq Tablet,Er Particles/Crystals 40 meq PO BID Qty: 60 0RF Continued folic acid 1 mg Tablet 1 mg PO QAM Rx Instructions: Not on file w/ pharmacy at this date/time. albuterol sulfate 90 mcg/actuation HFA aerosol inhaler 1 puff inhalation DIRECTED PRN (Reason: SOB/Wheezing) Held aspirin [Aspir-Low] 81 mg Tablet,Delayed Release (Dr/Ec) 81 mg PO DAILY Hold Instructions: Resume on 12/09/24. discuss with your primary care doctor when you should resume Rx Instructions: Unable to verify OTC meds at this date/time. Discontinued lisinopril 20 mg Tablet 20 mg PO QAM magnesium chloride [Mag 64] 64 mg Tablet,Delayed Release (Dr/Ec) 64 mg PO BID Qty: 60 0RF Rx Instructions: Unable to verify OTC meds at this date/time. hydroxyzine HCl 50 mg tablet 25 - 50 mg PO Q6H PRN (Reason: Unknown) Rx Instructions: Take 25mg to 50 mg by mouth every 6 hours as needed Discharge Orders: Discharge Order (Routine); Ordered 12/03/24 Ordered By: Chano Yates/Other Patient Handouts: High Blood Sugar (Hyperglycemia), Hypoglycemia (Low Blood Sugar), Diabetes: Meal Planning, Type 2 Diabetes Admission Data Admit Date/Time: 11/20/24 18:35 Attending Provider: Chano Mcelroy Admit Provider: Melissa Lyle Primary Care Provider: Luly Guajardo Other Providers: Ronald Whittington; Funmilayo Stubbs Jr; Silvio Cortez; Koby Olivo; Norberto Melo I.; Jules Sanabria II; Elizabeth Whiteside; Faisal Berumen; Karson Head; Candie Chan; Reynaldo Andrew; Sharon Rebolledo; Alesia Leong; Mariel Zee; Ronak Lucas; Edi Dennis; Reza Dean; Elizabeth Alvares; [facility]; [facility],; Anil Hutchison; Johnny Lockett
[2024-12-03 12:53] VITALS: BP 116/75
[2024-12-03] MEDS ORDERED: MAGNESIUM CHLORIDE W/CALCIUM 64MG DELAYED REL TAB PO SCH (21:00)
[2024-12-04] MEDS ORDERED: PANTOprazole 40 MG TAB PO SCH (09:00)
== END 2024-12-03 13:07 | DRG 871 ==
LOC: ED 15:03 → 1E 18:35 → SUATTDRO 18:35 → 1E 20:13 → 2E 11-21 18:29

== ENCOUNTER 2024-12-16 09:38 | Inpatient (IN) ==
[2024-12-16 10:15] LABS: Basophils # (auto) 0.07 K/uL (0.00-0.20); Basophils % (auto) 0.9 %; Eosinophils # (auto) 0.05 K/uL (0.00-0.50); Eosinophils % (auto) 0.6 %; Hematocrit (blood only) 34.6 % (42.0-52.0); Hemoglobin 12.3 g/dl (14.0-18.0); Immature Granulocytes # (auto) 0.03 K/uL (0.01-0.20); Immature Granulocytes % (auto) 0.4 %; Lymphocytes # (auto) 1.86 K/uL (1.20-3.40); Lymphocytes % (auto) 23.9 %; Mean Corpuscular Hemoglobin 33.4 pg (25.0-34.0); Mean Corpuscular Hgb Conc 35.5 g/dL (32.0-36.0); Mean Platelet Volume 10.4 fL (9.4-12.4); Monocytes # (auto) 0.81 K/uL (0.11-0.59); Monocytes % (auto) 10.4 %; Neutrophils # (auto) 4.97 K/uL (1.40-6.50); Neutrophils % (auto) 63.8 %; Platelet Count 154 K/uL (130-400); RDW Coefficient of Variation 14.6 % (11.5-14.5); RDW Standard Deviation 50.4 fL (36.4-46.3); Red Blood Count 3.68 M/uL (4.70-6.10); White Blood Count 7.79 K/ul (4.8-10.8)
--- NOTE | 2024-12-16 10:17 | XRay Report ---
XR chest 1V portable HISTORY: 59 years-old Male Sepsis acute sepsis COMPARISON: CTA chest 11/30/2024 TECHNIQUE: AP view of the chest FINDINGS: Cardiac silhouette is upper limits of normal in size. Lungs are mildly hypoinflated. Resolution of th e previously noted right pleural effusion with right basilar consolidation. No pneumothorax, pleural effusion or air space opacification to a study. Bones appear grossly intact. IMPRESSION: 1. Hypoinflation without acute process of the chest. 2. Resolution of the previously noted right pleural effusion with right basilar consolidation. ACT 112: Negative or not required by law. The above report was generated using voice recognition software. It may contain grammatical, syntax o r spelling errors. Electronically signed by: Car Landrum M.D. 12/16/2024 10:15 AM
--- NOTE | 2024-12-16 10:23 | Emergency Department Note ---
Impression & Plan Altered mental status, CEE (acute kidney injury), Hyperammonemia, Hypotension, Hypomagnesemia ED Provider Note ED Provider Note NAME: MOY CRABTREE AGE:59 SEX: Male : 1965 ARRIVES VIA: EMS INFORMANT: EMS ED PROVIDER(s): Millicent Linton DO CHIEF COMPLAINT: Altered mental status HPI: This is a 59-year-old male brought in by EMS after family went to check on him today and stated he seemed unsteady and more confused. They had last checked on him yesterday and he seemed well around 7 PM. Patient here cannot provide any additional information, he is awake and answering questions but answers "I am fine, it is good". He is uncertain of how he got here. He denies any chest pain or abdominal pain. Cannot otherwise recall his medications or past medical history. PAST MEDICAL HISTORY:See Below PAST SURGICAL HISTORY:See Below FAMILY HISTORY:See Below SOCIAL HISTORY:See Below HOME MEDICATIONS:See Below ALLERGIES:See Below VITALS:See Below PHYSICAL EXAMINATION: GENERAL: alert, unwell appearing, well nourished, no distress, non-toxic EYE EXAM: normal conjunctiva, PERRL and EOM's grossly intact OROPHARYNX: no exudate, no erythema, lips, buccal mucosa, and tongue normal and mucous membranes are dry NECK: supple, no nuchal rigidity, no adenopathy, non-tender LUNGS: Clear but decreased to auscultation. Normal chest wall mechanics, no w/r/r HEART: no murmurs, S1 normal and S2 normal ABDOMEN: abdomen soft, non-tender, normo-active bowel sounds, no masses, no rebound or guarding. BACK: Back is symmetrical on inspection and there is no deformity, no midline tenderness, no CVA tenderness. SKIN: no rashes, petechiae, orbruising UPPER EXTREMITIES: upper extremities are grossly normal. FROM, nml pulses b/l. LOWER EXTREMITIES: FROM, nml pulses b/l. Chronic appearing mild lower extremity edema, several superficial lacerations noted to bilateral pretibial regions NEURO EXAM: Confused, cranial nerves II-XII grossly intact, normal speech, no facial droop,moves extremity spontaneously but otherwise would not cooperate for further neurotesting Vital Signs: reviewed and remarkable Differential Diagnosis: CVA/TIA, ICH, CEE, PNA, UTI, medication ADR, bacteremia/sepsis, occult trauma, hypoxia, hypercapnia, electrolyte abnormality, as well as others were considered MEDICAL DECISION MAKING: This is a 59-year-old male who presents emergency department due to concern for altered mental status. Patient noted to be hypotensive on arrival, however other vital signs stable. Labs drawn and sent including cultures, IV established, EKG and chest x-ray performed at bedside and interpreted by me and patient monitored on telemetry. Patient started on IV fluids given hypotension. Additional labs added after review of patient's past history and recent hospitalization as patient cannot provide any additional history. Patient sent initially for CT of the head which was reassuring. Patient noted to have CEE. A straight catheterization for urine was performed and UA sent which was unremarkable. Patient continued on IV fluids and did receive 30 mL/KG based on actual body weight. He was empirically started on vancomycin and cefepime. Given new CEE, CT of the abdomen pelvis was performed additionally. No other obstructive uropathy noted, patient did have a distended bladder and in consideration for monitoring I's and O's as well as a postobstructive process a Titus catheter was placed. Following meeting fluid resuscitation volume, he was then placed on maintenance IV fluids. Patient was given IV magnesium repletion due to accompanying low magnesium. Hyperammonemia was also noted I suspect this is likely the cause of the patient's altered mental status. Patient's blood pressure did improve. When patient was hypotensive he was still mostly maintaining his MAP. Following volume resuscitation he had systolics in the low 100s. He was making urine. Patient's initial lactic acid was elevated however repeat was downtrending. Procalcitonin elevated additionally. Case discussed with hospitalist team for additional evaluation and management Consultation(s): 1355: Discussed with Stephen Marcus hospitalist team, for additional evaluation and management. ER Treatment Provided: See below 1150: Updated family at bedside. They state he seemed a little "off" yesterday when they saw him however today was markedly different. They state he is only been home from [facility] for 2 days after he spent time in rehab there following his recent hospitalization. Repeat volume assessment -still receiving IV fluids. Patient still hypotensive however maps are improved. 0135: Bp improved at bedside. 0150: Patient's blood pressure is improved following completion of volume resuscitation parameters at bedside, will decrease to maintenance fluids at this time. Patient is still confused although I suspect this is more likely hepatic encephalopathy. Patient is producing urine despite elevated creatinine. Diagnostics Interpreted By Me: -ECG: Normal sinus at 96, normal axis, normal intervals, no acute ST/T wave changes -Cardiac Monitoring: An order was placed for continuous cardiac monitoring. The monitor shows a rate of 62 with normal sinus rhythm. -Laboratory studies: As stated above and show below. -Imaging studies: X-ray Chest: A single view study of the chest was reviewed and was negative for cardiomegaly, focal infiltrate, effusion, pulmonary edema, or wide mediastinum. Triage Nursing Note Reviewed Prior/Outside Records Reviewed Critical Care: Critical care of 58 min performed to assess and manage high likelihood of life-threatening ams and hypotension, involving labs and imaging performed with assessment to evaluate ams, hypotension, and cee diagnosis with frequent reassessment. This time includes bedside time, treatment discussions with patient/family/consultants, documentation time and excludes procedure time. Past Med/Surg History Problem List (Updated 12/16/24 @ 17:54 by Millicent Linton DO) Hypomagnesemia (Acute) Type 2 diabetes mellitus Urinary retention Hyperammonemia (Acute) CEE (acute kidney injury) (Acute) Altered mental status (Acute) Metabolic encephalopathy Positive blood culture Cirrhosis Sepsis Vomiting (Acute) Elevated lactic acid level (Acute) Alcohol abuse (Acute) Hypotension (Acute) Medical History (Updated 12/16/24 @ 17:54 by Millicent Linton DO) Congenital cataract of both eyes Hypertension BPH NOS w ur obs/LUTS Renal calculi Retained ureteral stent Alcohol dependence Surgical History (Updated 12/16/24 @ 17:26 by Claudia Aguirre PA-C) S/P ureteral stent placement S/P lens implant Family History Other Breast cancer Diabetes Heart disease Social History Smoking Status: Never smoker Second Hand Exposure: No; Do You Dip or Chew Tobacco: Yes; Hx Alcohol Use: Yes Alcohol type: beer Preferred Language: Moroccan Communication Ability: Impaired Support Service Tech Required: No Beliefs That Will Affect Care: None Current Living Situation: Alone current occupational status: disabled Feels Safe at Home: Yes Assistive Devices: None Allergies Allergies Allergy/AdvReac Type Severity Reaction Status Date / Time No Known Allergies Allergy Verified 04/04/21 18:18 Home Meds Home Medications Medication Instructions Recorded Confirmed aspirin 81 mg tablet,delayed 81 mg PO DAILY 04/04/21 12/16/24 release albuterol sulfate 90 mcg/actuation 1 puff inhalation DIRECTED PRN 11/20/24 12/16/24 aerosol inhaler SOB/Wheezing Previous Rx's Medication Instructions Recorded L.acidop,casei,lactis,rham-B.lact,sudhir 1 cap PO DAILY #7 caps 12/03/24 625 mg (10 billion cell) capsule (Advanced Probiotic) folic acid 1 mg tablet 1 mg PO QAM #30 tabs 12/03/24 insulin glargine 100 unit/mL 35 unit (0.35 mL) SC DAILY #10 mL 12/03/24 subcutaneous solution (Lantus U-100 Insulin) magnesium chloride 64 mg 128 mg (2 x 64 mg) PO BID #60 tabs 12/03/24 (magnesium chloride) tablet,delayed release (Mag 64) midodrine 2.5 mg tablet 2.5 mg PO TID@0800,1200,1700 #60 12/03/24 tabs pantoprazole 40 mg tablet,delayed 40 mg PO DAILY #30 tabs 12/03/24 release potassium chloride 20 mEq 40 meq (2 x 20 mEq) PO BID #60 tabs 12/03/24 tablet,extended release(part/cryst) rifaximin 550 mg tablet (Xifaxan) 550 mg PO BID #60 tabs 12/03/24 spironolactone 25 mg tablet 25 mg PO BID #60 tabs 12/03/24 thiamine HCl (vitamin B1) 100 mg 100 mg PO DAILY #30 tabs 12/03/24 tablet torsemide 40 mg tablet 40 mg PO BID #60 tabs 12/03/24 white petrolatum-mineral oil 1 applic EXT BID #454 grams 12/03/24 topical cream (Dermacerin topical cream) Results & Data (ED) Vital Signs Vital Signs - 24 hr 12/16/24 09:46 12/16/24 10:02 12/16/24 10:14 Temperature Temperature Source Pulse Rate 94 H 97 H Pulse Rate [Right Finger] Respiratory Rate 16 Respiratory Effort / Characteristics Non-Labored Spontaneous Respiratory Depth Normal Respiratory Pattern Blood Pressure 87/51 L Blood Pressure [Right Arm] Blood Pressure Mean 63 Blood Pressure Mean [Right Arm] Pulse Oximetry 95 Oxygen Delivery Method Room Air Room Air Sepsis Recent Fever Within 48 Hours No Sepsis New/Unexplained Change in Mental Status Yes Sepsis Action Taken by Nursing No Action Required 12/16/24 10:16 12/16/24 10:40 12/16/24 10:40 Temperature 35.6 C L 35.6 C L Temperature Source Rectal Rectal Pulse Rate Pulse Rate [Right Finger] 74 Respiratory Rate 20 Respiratory Effort / Characteristics Non-Labored Spontaneous Respiratory Depth Normal Respiratory Pattern Regular Blood Pressure Blood Pressure [Right Arm] 86/59 L Blood Pressure Mean Blood Pressure Mean [Right Arm] 68 Pulse Oximetry 100 Oxygen Delivery Method Room Air Sepsis Recent Fever Within 48 Hours Sepsis New/Unexplained Change in Mental Status Sepsis Action Taken by Nursing 12/16/24 10:54 12/16/24 11:04 12/16/24 11:15 Temperature Temperature Source Rectal Pulse Rate Pulse Rate [Right Finger] 92 H 99 H Respiratory Rate 16 16 Respiratory Effort / Characteristics Non-Labored Spontaneous Non-Labored Spontaneous Respiratory Depth Normal Normal Respiratory Pattern Regular Regular Blood Pressure Blood Pressure [Right Arm] 95/52 L 97/57 L Blood Pressure Mean Blood Pressure Mean [Right Arm] 66 70 Pulse Oximetry 100 99 Oxygen Delivery Method Room Air Room Air Sepsis Recent Fever Within 48 Hours Sepsis New/Unexplained Change in Mental Status Sepsis Action Taken by Nursing 12/16/24 11:30 12/16/24 11:45 12/16/24 12:00 Temperature Temperature Source Pulse Rate Pulse Rate [Right Finger] 91 H 93 H 88 Respiratory Rate 20 20 20 Respiratory Effort / Characteristics Non-Labored Spontaneous Non-Labored Spontaneous Non-Labored Spontaneous Respiratory Depth Normal Normal Normal Respiratory Pattern Regular Regular Regular Blood Pressure Blood Pressure [Right Arm] 87/54 L 90/65 L 96/56 L Blood Pressure Mean Blood Pressure Mean [Right Arm] 65 73 69 Pulse Oximetry 100 100 100 Oxygen Delivery Method Room Air Room Air Room Air Sepsis Recent Fever Within 48 Hours Sepsis New/Unexplained Change in Mental Status Sepsis Action Taken by Nursing 12/16/24 12:15 12/16/24 12:15 12/16/24 12:30 Temperature 35.7 C L Temperature Source Rectal Pulse Rate Pulse Rate [Right Finger] 92 H 93 H Respiratory Rate 12 12 Respiratory Effort / Characteristics Non-Labored Spontaneous Non-Labored Spontaneous Respiratory Depth Normal Normal Respiratory Pattern Regular Blood Pressure Blood Pressure [Right Arm] 97/67 L 97/63 L Blood Pressure Mean Blood Pressure Mean [Right Arm] 77 74 Pulse Oximetry 100 100 Oxygen Delivery Method Room Air Room Air Sepsis Recent Fever Within 48 Hours Sepsis New/Unexplained Change in Mental Status Sepsis Action Taken by Nursing 12/16/24 12:45 12/16/24 13:00 12/16/24 13:15 Temperature 36.5 C Temperature Source Rectal Pulse Rate Pulse Rate [Right Finger] 94 H 97 H 97 H Respiratory Rate 20 20 16 Respiratory Effort / Characteristics Non-Labored Spontaneous Non-Labored Spontaneous Non-Labored Spontaneous Respiratory Depth Normal Normal Normal Respiratory Pattern Regular Regular Regular Blood Pressure Blood Pressure [Right Arm] 99/59 L 98/59 L 98/59 L Blood Pressure Mean Blood Pressure Mean [Right Arm] 72 72 72 Pulse Oximetry 100 100 100 Oxygen Delivery Method Room Air Room Air Room Air Sepsis Recent Fever Within 48 Hours Sepsis New/Unexplained Change in Mental Status Sepsis Action Taken by Nursing 12/16/24 13:16 12/16/24 13:30 12/16/24 13:46 Temperature Temperature Source Pulse Rate Pulse Rate [Right Finger] 109 H 97 H 96 H Respiratory Rate 20 20 20 Respiratory Effort / Characteristics Non-Labored Spontaneous Non-Labored Spontaneous Non-Labored Spontaneous Respiratory Depth Normal Normal Normal Respiratory Pattern Regular Regular Regular Blood Pressure Blood Pressure [Right Arm] 106/80 100/64 105/55 L Blood Pressure Mean Blood Pressure Mean [Right Arm] 88 76 71 Pulse Oximetry 100 100 100 Oxygen Delivery Method Room Air Room Air Room Air Sepsis Recent Fever Within 48 Hours Sepsis New/Unexplained Change in Mental Status Sepsis Action Taken by Nursing 12/16/24 14:00 12/16/24 14:15 Temperature Temperature Source Pulse Rate Pulse Rate [Right Finger] 98 H 99 H Respiratory Rate 16 20 Respiratory Effort / Characteristics Non-Labored Spontaneous Non-Labored Spontaneous Respiratory Depth Normal Normal Respiratory Pattern Regular Blood Pressure Blood Pressure [Right Arm] 124/68 131/80 Blood Pressure Mean Blood Pressure Mean [Right Arm] 86 97 Pulse Oximetry 100 100 Oxygen Delivery Method Room Air Room Air Sepsis Recent Fever Within 48 Hours Sepsis New/Unexplained Change in Mental Status Sepsis Action Taken by Nursing Laboratory Data 12/16/24 09:47 12/16/24 09:47 Lab Results 12/16/24 12/16/24 12/16/24 Range/Units 09:47 10:12 10:56 WBC 7.79 (4.8-10.8) K/ul RBC 3.68 L (4.70-6.10) M/uL Hgb 12.3 L (14.0-18.0) g/dl Hct 34.6 L (42.0-52.0) % MCV 94.0 (80.0-100.0) fL MCH 33.4 (25.0-34.0) pg MCHC 35.5 (32.0-36.0) g/dL RDW Std Deviation 50.4 H (36.4-46.3) fL RDW Coeff of Martir 14.6 H (11.5-14.5) % Plt Count 154 (130-400) K/uL MPV 10.4 (9.4-12.4) fL Immature Gran % (Auto) 0.4 % Neut % (Auto) 63.8 % Lymph % (Auto) 23.9 % Dyer % (Auto) 10.4 % Eos % (Auto) 0.6 % Baso % (Auto) 0.9 % Neut # (Auto) 4.97 (1.40-6.50) K/uL Lymph # (Auto) 1.86 (1.20-3.40) K/uL Dyer # (Auto) 0.81 H (0.11-0.59) K/uL Eos # (Auto) 0.05 (0.00-0.50) K/uL Baso # (Auto) 0.07 (0.00-0.20) K/uL Immature Gran # (Auto) 0.03 (0.01-0.20) K/uL PT 11.0 (9.0-12.0) Seconds INR 1.0 (0.9-1.1) VBG pH (7.36-7.41) VBG pCO2 (38-50) mmHg VBG pO2 mmHg VBG HCO3 mmol/L VBG O2 Saturation % VBG Base Excess mEq/L Sodium 131 L (136-145) mmol/L Potassium 4.0 (3.5-5.1) mmol/L Chloride 94 L (98-107) mmol/L Carbon Dioxide 25 (21-32) mmol/L Anion Gap 12 H (3-11) BUN 61 H (6-23) mg/dl Creatinine 4.17 H (0.6-1.4) mg/dl Est Cr Clr Drug Dosing 19.5 ml/min eGFR 15.53 BUN/Creatinine Ratio 14.6 (10-20) Glucose 159 H (70-99(Fasting)) mg/dl Lactate 3.0 H* (0.4-2.0) mmol/L Calcium 9.6 (8.6-10.3) mg/dl Magnesium 1.6 L (1.7-2.4) mg/dl Total Bilirubin 1.8 H (0.2-1.0) mg/dl Direct Bilirubin 0.7 H (0-0.2) mg/dl AST 57 H (13-39) U/L ALT 63 H (7-52) U/L Alkaline Phosphatase 223 H (34-104) U/L Ammonia (18-72) umol/L Total Creatine Kinase (30-223) U/L Troponin I High Sens 11.8 (0-20) pg/ml Total Protein 8.2 (6.0-8.3) gm/dl Albumin 3.4 (3.4-5.0) gm/dl Lipase 156 H (11-82) U/L Procalcitonin 1.63 H (0-0.5) ng/ml Urine Color Yellow Urine Appearance Clear (Clear) Urine pH 5.5 (4.5-7.5) Ur Specific [place] 1.010 (1.000-1.030) Urine Protein Negative (Negative) Urine Glucose (UA) Negative (Negative) Urine Ketones Negative (Negative) Urine Blood Negative (Negative) Urine Nitrite Negative (Negative) Urine Bilirubin Negative (Negative) Urine Urobilinogen Negative (Negative) Ur Leukocyte Esterase Negative (Negative) Ethyl Alcohol mg/dL (<10.0) mg/dl Adenovirus (PCR) Not Detected (NotDetected) B. pertussis DNA (PCR) Not Detected (NotDetected) B.parapertussis DNA PCR Not Detected (NotDetected) C. pneumoniae DNA (PCR) Not Detected (NotDetected) Coronavirus OC43 (PCR) Not Detected (NotDetected) Coronavirus HKU1 (PCR) Not Detected (NotDetected) Coronavirus 229E (PCR) Not Detected (NotDetected) SARS-CoV-2 (PCR) Not Detected (NotDetected) Coronavirus NL63 (PCR) Not Detected (NotDetected) Human Metapneumovir PCR Not Detected (NotDetected) Influenza Type A (PCR) Not Detected (NotDetected) Influenza Type B (PCR) Not Detected (NotDetected) M. pneumoniae (PCR) Not Detected (NotDetected) Parainfluenza 1 (PCR) Not Detected (NotDetected) Parainfluenza 2 (PCR) Not Detected (NotDetected) Parainfluenza 3 (PCR) Not Detected (NotDetected) Parainfluenza 4 (PCR) Not Detected (NotDetected) RSV (PCR) Not Detected (NotDetected) Entero/Rhino (PCR) Not Detected (NotDetected) 12/16/24 12/16/24 Range/Units 11:06 12:42 WBC (4.8-10.8) K/ul RBC (4.70-6.10) M/uL Hgb (14.0-18.0) g/dl Hct (42.0-52.0) % MCV (80.0-100.0) fL MCH (25.0-34.0) pg MCHC (32.0-36.0) g/dL RDW Std Deviation (36.4-46.3) fL RDW Coeff of Martir (11.5-14.5) % Plt Count (130-400) K/uL MPV (9.4-12.4) fL Immature Gran % (Auto) % Neut % (Auto) % Lymph % (Auto) % Dyer % (Auto) % Eos % (Auto) % Baso % (Auto) % Neut # (Auto) (1.40-6.50) K/uL Lymph # (Auto) (1.20-3.40) K/uL Dyer # (Auto) (0.11-0.59) K/uL Eos # (Auto) (0.00-0.50) K/uL Baso # (Auto) (0.00-0.20) K/uL Immature Gran # (Auto) (0.01-0.20) K/uL PT (9.0-12.0) Seconds INR (0.9-1.1) VBG pH 7.34 L (7.36-7.41) VBG pCO2 43 (38-50) mmHg VBG pO2 25 mmHg VBG HCO3 23 mmol/L VBG O2 Saturation < 60.0 % VBG Base Excess -2.6 mEq/L Sodium (136-145) mmol/L Potassium (3.5-5.1) mmol/L Chloride (98-107) mmol/L Carbon Dioxide (21-32) mmol/L Anion Gap (3-11) BUN (6-23) mg/dl Creatinine (0.6-1.4) mg/dl Est Cr Clr Drug Dosing ml/min eGFR BUN/Creatinine Ratio (10-20) Glucose (70-99(Fasting)) mg/dl Lactate 2.1 H* (0.4-2.0) mmol/L Calcium (8.6-10.3) mg/dl Magnesium (1.7-2.4) mg/dl Total Bilirubin (0.2-1.0) mg/dl Direct Bilirubin (0-0.2) mg/dl AST (13-39) U/L ALT (7-52) U/L Alkaline Phosphatase (34-104) U/L Ammonia 151.0 H (18-72) umol/L Total Creatine Kinase 55 (30-223) U/L Troponin I High Sens (0-20) pg/ml Total Protein (6.0-8.3) gm/dl Albumin (3.4-5.0) gm/dl Lipase (11-82) U/L Procalcitonin (0-0.5) ng/ml Urine Color Urine Appearance (Clear) Urine pH (4.5-7.5) Ur Specific [place] (1.000-1.030) Urine Protein (Negative) Urine Glucose (UA) (Negative) Urine Ketones (Negative) Urine Blood (Negative) Urine Nitrite (Negative) Urine Bilirubin (Negative) Urine Urobilinogen (Negative) Ur Leukocyte Esterase (Negative) Ethyl Alcohol mg/dL < 10.0 (<10.0) mg/dl Adenovirus (PCR) (NotDetected) B. pertussis DNA (PCR) (NotDetected) B.parapertussis DNA PCR (NotDetected) C. pneumoniae DNA (PCR) (NotDetected) Coronavirus OC43 (PCR) (NotDetected) Coronavirus HKU1 (PCR) (NotDetected) Coronavirus 229E (PCR) (NotDetected) SARS-CoV-2 (PCR) (NotDetected) Coronavirus NL63 (PCR) (NotDetected) Human Metapneumovir PCR (NotDetected) Influenza Type A (PCR) (NotDetected) Influenza Type B (PCR) (NotDetected) M. pneumoniae (PCR) (NotDetected) Parainfluenza 1 (PCR) (NotDetected) Parainfluenza 2 (PCR) (NotDetected) Parainfluenza 3 (PCR) (NotDetected) Parainfluenza 4 (PCR) (NotDetected) RSV (PCR) (NotDetected) Entero/Rhino (PCR) (NotDetected) Administered Medications Sodium Chloride (Nss) 1,000 mls @ 100 mls/hr IV .Q10H OLIVIA Stop: 12/17/24 13:59 Last Admin: 12/16/24 14:16 Dose: 125 mls/hr Documented By: OFELIA Thiamine HCl 250 mg/ Sodium (Chloride) 52.5 mls @ 210 mls/hr IV Q8H OLIVIA Stop: 01/15/25 14:29 Last Infusion: 12/16/24 16:17 Dose: Infused Documented By: Admin: 12/16/24 15:14 Dose: 210 mls/hr Documented By: OFELIA Lactulose (Lactulose Syrup 20 Gm/30 Ml Udc) 20 gm PO TID OLIIVA Stop: 01/15/25 15:09 Last Admin: 12/16/24 17:23 Dose: 20 gm Documented By: ARMANDO Midodrine (Midodrine Hcl 2.5 Mg Tab) 2.5 mg PO TID@0800,1200,1700 OLIVIA Stop: 01/15/25 16:59 Last Admin: 12/16/24 16:21 Dose: 2.5 mg Documented By: ARMANDO Discontinued Medications Sodium Chloride (Nss) 1,000 mls @ 999 mls/hr IV .Q1H1M ONE Stop: 12/16/24 11:17 Last Infusion: 12/16/24 12:17 Dose: Infused Documented By: Admin: 12/16/24 10:52 Dose: 999 mls/hr Documented By: Infusion: 12/16/24 10:52 Dose: Infused Documented By: Admin: 12/16/24 10:46 Dose: 999 mls/hr Documented By: OFELIA Cefepime HCl (Maxipime 2000mg) 2,000 mg in 20 mls @ 5 mls/min IV NOW STA; Protocol Stop: 12/16/24 10:40 Last Admin: 12/16/24 10:57 Dose: 5 mls/min Documented By: OFELIA Vancomycin HCl 1,500 mg/ (Sodium Chloride) 530 mls @ 200 mls/hr IV NOW ONE Stop: 12/16/24 13:15 Last Infusion: 12/16/24 16:18 Dose: Infused Documented By: Admin: 12/16/24 11:45 Dose: 200 mls/hr Documented By: OFELAI Sodium Chloride (Nss) 1,000 mls @ 999 mls/hr IV .Q1H1M ONE Stop: 12/16/24 11:38 Last Infusion: 12/16/24 11:53 Dose: Infused Documented By: Admin: 12/16/24 10:52 Dose: 999 mls/hr Documented By: OFELIA Magnesium Sulfate/Dextrose (Magnesium Sulfate / D5w) 1 gm in 100 mls @ 100 mls/hr IV NOW STA Stop: 12/16/24 11:47 Last Infusion: 12/16/24 12:05 Dose: Infused Documented By: Admin: 12/16/24 11:01 Dose: 100 mls/hr Documented By: OFELIA Sodium Chloride (Nss) 500 mls @ 999 mls/hr IV .Q31M ONE Stop: 12/16/24 13:10 Last Infusion: 12/16/24 13:24 Dose: Infused Documented By: Admin: 12/16/24 12:53 Dose: 999 mls/hr Documented By: OFELIA Piperacillin Sod/Tazobactam Sod (Zosyn) 4.5 gm in 100 mls @ 200 mls/hr IV NOW STA; Protocol Stop: 12/16/24 16:46 Last Admin: 12/16/24 17:09 Dose: 200 mls/hr Documented By: ARMANDO Imaging Data Radiologist's Impression: Chest X-Ray 12/16/24 09:55 XR chest 1V portable HISTORY: 59 years-old Male Sepsis acute sepsis COMPARISON: CTA chest 11/30/2024 TECHNIQUE: AP view of the chest FINDINGS: Cardiac silhouette is upper limits of normal in size. Lungs are mildly hypoinflated. Resolution of the previously noted right pleural effusion with right basilar consolidation. No pneumothorax, pleural effusion or air space opacification to a study. Bones appear grossly intact. IMPRESSION: 1. Hypoinflation without acute process of the chest. 2. Resolution of the previously noted right pleural effusion with right basilar consolidation. ACT 112: Negative or not required by law. The above report was generated using voice recognition software. It may contain grammatical, syntax or spelling errors. Electronically signed by: Car Landrum M.D. 12/16/2024 10:[address] 12/16/24 10:20 CT head/brain wo con CLINICAL HISTORY: 59 years-old Male with ams. Acutely altered mental status TECHNIQUE: Multiple axial CT images of the head were obtained without contrast. A dose lowering technique was utilized adhering to the principles of ALARA. CT DOSE: 953.61 mGy.cm COMPARISON: 11/20/2024 FINDINGS: No acute intracranial hemorrhage, midline shift, intracranial mass, hydrocephalus, territorial ischemia or abnormal extra-axial collection. Involutional changes with chronic microvascular ischemic disease. 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 The calvarium is intact. Developmental incomplete bony fusion involves the posterior arch of C1. Left-sided scleral banding. Prior bilateral lens repair. The paranasal sinuses, mastoid air cells, and middle ear cavities are clear. IMPRESSION: No acute intracranial abnormality. ACT 112: Negative or not required by law. The above report was generated using voice recognition software. It may contain grammatical, syntax or spelling errors. Electronically signed by: Car Landrum M.D. 12/16/2024 11:06 AM Abdomen/Pelvis CT 12/16/24 11:[address] WITHOUT CONTRAST CT DOSE: 1420.68 mGy.cm HISTORY: Acute kidney injury in patient with history of cirrhosis and ascites new CEE TECHNIQUE: Multiaxial CT images of the abdomen and pelvis were performed without contrast. A dose lowering technique was utilized adhering to the principles of ALARA. COMPARISON STUDY: November 20, 2024 FINDINGS: Limited exam secondary to positioning. Cardiomegaly. Right hemidiaphragmatic elevation. Mild bibasilar atelectasis. No pneumatosis or pneumoperitoneum. Spleen is upper limits of normal in size. There is mild interstitial and peripancreatic edema centered around the pancreatic head and uncinate process. The adrenal glands are within normal limits. Cirrhotic liver. Recannulization of the umbilical vein. Unremarkable gallbladder. No discrete liver mass identified. 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 Symmetric appearing mild bilateral hydroureteronephrosis with distended urinary bladder and urethra. The bladder measures up to approximately 15.5 cm in length. No renal or ureteral calculi or obstructing mass identified. Mildly enlarged prostate. Atherosclerosis of the aorta without aneurysm. Tiny hiatal hernia. Mild wall thickening of the distal stomach and duodenum with partial distention. Trace ascites within the dependent pelvis. No acute fracture. IMPRESSION: 1. Distended urinary bladder with symmetric mild bilateral hydroureteronephrosis. 2. No renal or ureteral calculi. 3. Findings suspicious for mild acute pancreatitis. Correlate with serum lipase. 3. Cirrhotic liver. 4. Additional findings as above. ACT 112: Negative or not required by law. The above report was generated using voice recognition software. It may contain grammatical, syntax or spelling errors. Electronically signed by: Car Landrum M.D. 12/16/2024 1:31 PM Discharge Plan Visit Data Chief Complaint: Altered Mental Status ED Provider: Millicent Linton Discharge Problem: Altered mental status, CEE (acute kidney injury), Hyperammonemia, Hypotension, Hypomagnesemia Patient Disposition: Admitted As Inpatient Discharge Instructions Interventions: ED Discharge Assessment Last Done: 12/16/24 14:59 Discharge Problem: Altered mental status Qualifiers: Altered mental status type: unspecified Qualified Code(s): R41.82 - Altered mental status, unspecified
[2024-12-16 10:28] LABS: Appearance Urine Clear (Clear); Bilirubin Urine Negative (Negative); Blood Urine Negative (Negative); Color Urine Yellow; Glucose Urine UA Negative (Negative); Ketones Urine Negative (Negative); Leukocyte Esterase Urine Negative (Negative); Nitrite Urine Negative (Negative); Protein Urine Negative (Negative); Urobilinogen Urine Negative (Negative); pH Urine 5.5 (4.5-7.5)
[2024-12-16] MEDS ORDERED: VANCOMYCIN CONSULT ACTIVE PRN (10:37)
[2024-12-16 10:46] LABS: Albumin Level 3.4 gm/dl (3.4-5.0); BUN Creatinine Ratio 14.6 (10-20); Bilirubin Direct 0.7 mg/dl (0-0.2); Bilirubin,Total 1.8 mg/dl (0.2-1.0); Calcium 9.6 mg/dl (8.6-10.3); Creatinine Clr Calc Pharmacy 19.5 ml/min; Magnesium 1.6 mg/dl (1.7-2.4); Total Protein 8.2 gm/dl (6.0-8.3)
[2024-12-16] MEDS: SODIUM CHLORIDE 0.9% 1,000 ML IV ONE ×2 (10:46→10:52)
[2024-12-16 10:52] LABS: Troponin I High Sensitivity 11.8 pg/ml (0-20)
[2024-12-16] MEDS: CEFEPIME 2000MG 2,000 MG/20 ML SYR IV STA (10:57)
[2024-12-16] MEDS: MAGNESIUM SULFATE / D5W 1 GM/100 ML BAG IV STA (11:01)
--- NOTE | 2024-12-16 11:08 | CT Scan Report ---
CT head/brain wo con CLINICAL HISTORY: 59 years-old Male with ams. Acutely altered mental status TECHNIQUE: Multiple axial CT images of the head were obtained without contrast. A dose lowering tech nique was utilized adhering to the principles of ALARA. CT DOSE: 953.61 mGy.cm COMPARISON: 11/20/2024 FINDINGS: No acute intracranial hemorrhage, midline shift, intracranial mass, hydrocephalus, territorial ischem ia or abnormal extra-axial collection. Involutional changes with chronic microvascular ischemic disea se. 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 The calvarium is intact. Developmental incomplete bony fusion involves the posterior arch of C1. Left -sided scleral banding. Prior bilateral lens repair. The paranasal sinuses, mastoid air cells, and mi ddle ear cavities are clear. IMPRESSION: No acute intracranial abnormality. ACT 112: Negative or not required by law. The above report was generated using voice recognition software. It may contain grammatical, syntax o r spelling errors. Electronically signed by: Car Landrum M.D. 12/16/2024 11:06 AM
[2024-12-16 11:13] LABS: Base Excess VBG -2.6 mEq/L; HCO3 VBG 23 mmol/L; Oxygen Saturation VBG < 60.0 %; PCO2 VBG 43 mmHg (38-50); PO2 VBG 25 mmHg; pH VBG 7.34 (7.36-7.41)
[2024-12-16] MEDS: VANCOMYCIN HCL 1,500 MG in SODIUM CHLORIDE 0.9% 500 ML IV ONE (11:45)
--- OUTSIDE RECORDS SUMMARY | 2024-12-16 12:41 | External Medical Summary | Summary of Care ---
Author Name Unknown Organization [facility] Address [address] [place] [address] Phone [phone] Care Team Providers Care Collateral Clerk Name Role Phone Luly Guajardo PA-C Primary Care Provider [phone] Reason for Visit * Reason Comments Chronic Kidney Disease (CKD) Hypertension Encounter Details Date Type Department Care Team (Late st Contact Info) Description 12/13/2024 10:40 AM EDT Office Visit Nephrology, [facility] [address] [place] [address] Edi Dennis MD [address] [place] [address] Stage 3a chronic kidney disease (HCC)*; Alcoholic cirrhosis of liver without ascites (HCC) Allergies No known active allergiesdocumented as of this encounter (statuses as of 12/13/2024) Medications Aspirin 81 MG Oral Tablet Delayed Release 1 Tablet. 020 Active Polyethylene Glycol 3350 17 GM/SCOOP Oral Powder (MiraLax)Indicati ons:Hepatic encephalopathy (HCC) Take 17 g by mouth in the morning. Dissolve one heaping tablespoon in 8 ounces of water or juice.. 510 g 11 024 Active Additional Information Patient not taking.Reported on 12/13/2024 rifAXIMin 550 MG Oral Tablet (Xifaxan)Indicati ons:Hepatic encephalopathy (HCC) Take 1 Tablet by mouth in the morning and 1 Tablet before bedtime. 60 Tablet 4 024 Active Additional Information Patient not taking.Reported on 12/13/2024 Ventolin HFA 108 (90 Base) MCG/ACT Inhalation Aerosol SolutionIndicatio ns:Chronic alcohol dependence, continuous (HCC),SOB (shortness of breath),LRTI (lower respiratory tract infection),Alcoho lic cirrhosis, unspecified whether ascites present (HCC) inhale 2 puffs by mouth every 4 hours if needed for wheezing or dyspnea 54 g 1 024 Active Additional Information Patient not taking.Reported on 12/13/2024 rifAXIMin 550 MG Oral Tablet (Xifaxan) Take 1 Tablet by mouth in the morning and 1 Tablet before bedtime. Active Magnesium Chloride 64 MG Oral Tablet Take by mouth. Act amira Spironolactone 25 MG Oral Tablet (Aldactone) Take 1 Tablet by mouth in the morning. Active Torsemide 40 MG Oral Tablet Take 40 mg by mouth 2 times a day in the morning and at noon. 025 Active Latanoprost 0.005 % Ophthalmic Solution (Xalatan) Instill 1 Drop into both eyes every evening. 2.5 mL 11 023 2024 Discontinued Triamcinolone Acetonide 0.1 % External Cream (Aristocort)Indic ations:Regulatory Compliance Officer's nodule Apply topically to affected area 3 times a day. To affected area. 80 g 5 023 2024 Discontinued Gabapentin 400 MG Oral Capsule (Neurontin)Indica tions:Chronic low back pain with sciatica, sciatica laterality unspecified, unspecified back pain laterality TAKE ONE CAPSULE BY MOUTH THREE TIMES A DAY EVERY MORNING, AT NOON, AND BEFORE BEDTIME 90 Capsule 5 023 2024 Discontinued Neomycin-Polymyxi n-HC [id number] Otic SolutionIndicatio ns:Chronic diffuse otitis externa of both ears Instill 4 Drops into both ears in the morning and 4 Drops at noon and 4 Drops before bedtime. To affected ear, for 10 days.. 10 mL 1 024 2024 Discontinued Lisinopril 20 MG Oral Tablet (Prinivil)Indicat ions:HTN, goal below 140/90 TAKE 1 TABLET BY MOUTH EVERY MORNING 90 Tablet 3 024 2024 Discontinued hydrOXYzine HCl 50 MG Oral TabletIndications :Itching TAKE 1/2 TO 1 TABLET BY MOUTH EVERY 6 HOURS NEEDED FOR ITCHING 40 Tablet 2 025 2024 Discontinued documented as of this encounter (statuses as of 12/13/2024) Active Problems Problem Noted Date Diagnosed Date Alcoholic cirrhosis of liver without ascites 05/2023 Legally blind 10/28/2022 Obesity, Class II, BMI 35-39.9, isolated (see ac tual BMI) 10/28/2022 History of anoxic brain injury 10/28/2022 Thrombocytopenia 02/09/2022 HTN, goal below 130/80 05/18/2017 documented as of this encounter (statuses as of 12/13/2024) Resolved Problems Problem Noted Date Diagnosed Date Resolved Date Anoxic brain damage, not elsewhere classified 02/10/2010/28/2022 Fatty (change of) liver, not elsewhere classified 02/09/2022 10/28/2022 Bilateral hearing loss 05/18/201710/28 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 10/28/2022 Alcohol related seizure 05/18/201703/21 Left foot pain 05/10/2016 04/08/2019 ALCOH DEP [id number] 11/21/200305/2023 Spasm of muscle 11/21/2003 04/08/2019 SPRAIN LUMBOSACRAL 11/21/2003 9 documented as of this encounter (statuses as of 12/13/2024) Immunizations Name Administration Dates Next Due HEP [...] Sign Reading Time Taken Comments Blood Pressure 103/58 12/13/2024 11:09 AM EDT Pulse 103 12/13/2024 11:09 AM EDT Temperature 36.3 °C (97.4 °F) 12/13/2024 11:03 AM E DT Respiratory Rate 16 12/13/2024 11:03 AM EDT Oxygen Saturation 98% 12/13/2024 11:03 AM EDT Inhaled Oxygen Concentration - - Weight 73.5 kg (162 lb) 12/13/2024 11:03 AM EDT Height - - Body Mass Index 26.96 11/28/2023 8:49 AM EDT documented in this encounter Progress Notes * Edi Dennis MD - 12/13/2024 11:08 AM EDT REASON FOR VISIT: CKD HPI: Major Patino is a 59 year old male seen in follow-up. Past medical history of alcoholic liver cirrhosis, with congenital cataracts in both eyes, legally blind, bilateral hearing loss and chronic back pain who was admitted at [facility] on 11/20/2024 with weakness found have acute kidney injury, cellulitis of the legs and sepsis due to Staph hominis. He was treated with zosyn and Dapto. He was discharged on torsemide 40 mg twice daily and kcl 40meq bid. No shortness of breath. He has mild leg swelling. No urinary symptoms. No dizziness. Hospital records from recent hospitalization at [facility] 2 weeks ago were extensively reviewed prior tothe visit Past Medical History: Diagnosis Date Alcoholic cirrhosis of liver with ascites (HCC) 10/28/2022 Alcoholic cirrhosis of liver without ascites (HCC) 10/28/2022 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 History of anoxic brain injury 10/28/2022 HTN, goal below 130/80 05/18/2017 Legally blind 10/28/2022 Obesity, Class II, BMI 35-39.9, isolated (see actual BMI) 10/28/2022 Review of Systems: General ROS: negative for - chills or fever Psychological ROS: negative for - mood swings ENT ROS: negative for - nasal congestion or nasal discharge Endocrine ROS: negative Respiratory ROS: no cough, shortness of breath, or wheezing Cardiovascular ROS: no chest pain or dyspnea on exertion Gastrointestinal ROS: no abdominal pain, change in bowel habits, or black or bloody stools Genito-Urinary ROS: no dysuria, trouble voiding, or hematuria Musculoskeletal ROS: negative for - muscle pain Neurological ROS: no TIA or stroke symptoms Dermatological ROS: negative for rash Family History Problem Relation Name Age of Onset Heart disease Mother Breast Cancer Mother Coronary Artery disease Father Diabetes Father Diabetes Brother Social History Socioeconomic History Marital status: Single Spouse name: Not on file Number of children: Not on file Years of education: Not on file Highest education level: Not on file Occupational History Not on file Tobacco Use Smoking status: Never Passive exposure: Current Smokeless tobacco: Current Types: Chew Vaping Use Vaping status: Never Used Substance and Sexual Activity Alcohol use: Yes Comment: drinks at least 15 beers daily Drug use: No Sexual activity: Never Other Topics Concern Not on file Social History Narrative Not on file Social Needs Financial Resource Strain: Not on file Food Insecurity: Not on file Transportation Needs: Not on file Social Connections: Not on file Housing Stability: Not on file Current Outpatient Medications Medication Sig Dispense Refill rifAXIMin 550 MG Oral Tablet (Xifaxan) Take 1 Tablet by mouth in the morning and 1 Tablet before bedtime. Magnesium Chloride 64 MG Oral Tablet Take by mouth. Spironolactone 25 MG Oral Tablet (Aldactone) Take 1 Tablet by mouth in the morning. Torsemide 40 MG Oral Tablet Take 40 mg by mouth 2 times a day in the morning and at noon. Aspirin 81 MG Oral Tablet Delayed Release 1 Tablet. (Patient not taking: Reported on 12/13/2024) Polyethylene Glycol 3350 17 GM/SCOOP Oral Powder (MiraLax) Take 17 g by mouth in the morning. Dissolve one heaping tablespoon in 8 ounces of water or juice.. (Patient not taking: Reported on 12/13/2024) 510 g 11 rifAXIMin 550 MG Oral Tablet (Xifaxan) Take 1 Tablet by mouth in the morning and 1 Tablet before bedtime. (Patient not taking: Reported on 12/13/2024) 60 Tablet 4 Ventolin HFA 108 (90 Base) MCG/ACT Inhalation Aerosol Solution inhale 2 puffs by mouth every 4 hours if needed for wheezing or dyspnea (Patient not taking: Reported on 12/13/2024) 54 g 1 No current facility-administered medications for this visit. Filed Vitals: 12/13/24 1103 12/13/24 1108 12/13/24 1109 BP: 99/72 101/65 103/58 Pulse: 104 104 103 Resp: 16 Temp: 36.3 °C (97.4 °F) SpO2: 98% Weight: 73.5 kg (162 lb) PHYSICAL EXAM: GENERAL: Alert, in no acute distress. EYES: Bilateral cataract, conjunctivae anicteric. ENT: Mucous membranes moist, oropharynx clear. Bilateral hearing loss has hearing aids NECK: Supple, no JVD. LYMPH: No cervical or supraclavicular lymphadenopathy. LUNGS: Clear to auscultation bilaterally, no respiratory distress. CARDIAC: Regular rate and rhythm, normal S1/S2, no murmurs, rubs, or gallops. ABDOMEN: Soft, non-tender, non-distended, bowel sounds present. EXT/MSK: No clubbing, cyanosis, 1+edema. SKIN: . Scratch gaytan on legs. NEURO: No tremor, no asterixis. LABS/STUDIES: Recent Labs Units 01/26/24 0845 SODIUM - [facility] mmol/L 133* POTASSIUM - [facility] mmol/L 4.5 CHLORIDE - [facility] mmol/L 100 CO2 - [facility] mmol/L 24 BUN - [facility] mg/dL 15 CREATININE - [facility] mg/dL 1.2 Recent Labs Units 01/26/24 0845 WBC K/uL 5.52 HGB g/dL 11.1* PLT K/uL 108* Recent Labs Units 01/26/24 0845 CALCIUM - [facility] mg/dL 9.0 PHOSPHORUS - [facility] mg/dL 3.1 No results for input(s): "HGBA1C" in the last 84953 hours. No results for input(s): "MICROALBUMIN", "PROCRRATIO" in the last 27124 hours. ASSESSMENT AND PLAN Major Santoro" was seen today for chronic kidney disease (ckd) and hypertension. Diagnoses and all orders for this visit: Stage 3a chronic kidney disease (HCC) Patient with CKD stage IIIA in setting of decompensated liver cirrhosis. Baseline creatinine 1.2. Patient had acute kidney injury during recent admission at [facility] with a creatinine peak in the threes.Creatinine downtrending close to baseline. Electrolytes are stable. No signs of volume overload. Will continue torsemide 40 mg twice daily and Aldactone. Repeat BMP, phosphorus and magnesium today. Alcoholic cirrhosis of liver without ascites (HCC) Patient with decompensated cirrhosis complicated by ascites and pleural effusions during recent hospitalization. Will continue torsemide and Aldactone as above. Patient is fairly well compensated now. I spent a total of Greater than 55 mins (exact time 56 mins) on the date of service in preparation,delivery, and documentation of the care provided to Major Patino excluding any time spent in theperformance of separately billed services or time spent by another provider/QHP. Edi Dennis MD Nephrology, [address] [address] This note was generated with the help of voice recognition software. Please excuse for errors. documented in this encounter Nursing Notes * Linda Parr LPN - 12/13/2024 11:05 AM EDT Patient currently [facility], recent discharge from hospital for "blood condition". No recent falls. Denies discomfort. documented in this encounter Plan of Treatment Upcoming Encounters Date Type Department Care Team (Late st Contact Info) Description 12/16/2024 10:00 AM EDT Office Visit [facility] [place] [address] [phone] Reyes Viera PA-C [address] [id number] 12/26/2024 2:00 PM EDT Scheduled Telephone [facility] [address] [place] [phone] Frank, Nurse Phone Call [facility] [address] [place] [phone] 03/19/2025 10:00 AM EDT Office Visit [facility], [place] Abdulaziz Mand[address] [phone] Luly Guajardo PA-C [address] [phone] Scheduled Orders Name Type Priority Associated Diagnoses Orde r Schedule BASIC METABOLIC PANEL Lab Routine Stage 3a chronic kidney disease (HCC) Alcoholic cirrhosis of liver without ascites (HCC) Ordered: 12/13/2024 MAGNESIUM Lab Routine Stage 3a chronic kidney disease (HCC) Alcoholic cirrhosis of liver without ascites (HCC) Ordered: 12/13/2024 PHOSPHORUS Lab Routine Stage 3a chronic kidney disease (HCC) Alcoholic cirrhosis of liver without ascites (HCC) Ordered: 12/13/2024 CBC Lab Routine Stage 3a chronic kidney disease (HCC) Alcoholic cirrhosis of liver without ascites (HCC) Ordered: 12/13/2024 Scheduled Procedures Name Priority Associated Diagnoses Date/Ti me COLONOSCOPY FLEXIBLE PROXIMAL DIAGNOSTIC Recall Colon cancer screening Health Maintenance Due Date Last Done Comments Pneumococcal Vaccine: 50+ Years (1 of 2 - PCV) 1983 Cologuard 2009 Fecal Occult Blood Test 2009 Sigmoidoscopy 2009 Depression Screening 04/08/2020 04/08/2019 COVID-19 Vaccine ( - season) 2024 GFR 01/25/2025 01/26/2024, 10/19, 08/05/2022, Additional history exists Influenza Vaccine (FLU shot) (Season Ended) 2025 08/01/2007, 08/01/2007 Colonoscopy 08/31/2025 08/31/2015, 08/31/2015 Colorectal Cancer Screening [...] as of this encounter Visit Diagnoses Diagnosis Stage 3a chronic kidney disease (HCC)- Primary Alcoholic cirrhosis of liver without ascites (HCC) Alcoholic cirrhosis of liver documented in this encounter Care Teams Collateral Clerk Relationship Specialty Start Date End Date Luly Guajardo PA-C [address] [phone] PCP - General Physician Core Winding Operator 10/28/24 documented as of this encounter
[2024-12-16] MEDS: SODIUM CHLORIDE 0.9% 500 ML IV ONE (12:53)
[2024-12-16 13:14] LABS: Adenovirus PCR Not Detected (NotDetected); Bordetella parapertussis PCR Not Detected (NotDetected); Bordetella pertussis PCR Not Detected (NotDetected); Chlamydia pneumoniae PCR Not Detected (NotDetected); Coronavirus 229E PCR Not Detected (NotDetected); Coronavirus CoV-2 (COVID19)PCR Not Detected (NotDetected); Coronavirus HKU1 PCR Not Detected (NotDetected); Coronavirus NL63 PCR Not Detected (NotDetected); Coronavirus OC43PCR Not Detected (NotDetected); Human Metapneumovirus PCR Not Detected (NotDetected); Influenza A PCR Not Detected (NotDetected); Influenza B PCR Not Detected (NotDetected); Mycoplasma pneumoniae PCR Not Detected (NotDetected); Parainfluenza Virus 1 PCR Not Detected (NotDetected); Parainfluenza Virus 2 PCR Not Detected (NotDetected); Parainfluenza Virus 3 PCR Not Detected (NotDetected); Parainfluenza Virus 4 PCR Not Detected (NotDetected); Respiratory Syncytial VirusPCR Not Detected (NotDetected); Rhinovirus/Enterovirus PCR Not Detected (NotDetected)
--- NOTE | 2024-12-16 13:34 | CT Scan Report ---
ABDOMEN AND PELVIS CT WITHOUT CONTRAST CT DOSE: 1420.68 mGy.cm HISTORY: Acute kidney injury in patient with history of cirrhosis and ascites new CEE TECHNIQUE: Multiaxial CT images of the abdomen and pelvis were performed without contrast. A dose lo wering technique was utilized adhering to the principles of ALARA. COMPARISON STUDY: November 20, 2024 FINDINGS: Limited exam secondary to positioning. Cardiomegaly. Right hemidiaphragmatic elevation. Mil d bibasilar atelectasis. No pneumatosis or pneumoperitoneum. Spleen is upper limits of normal in size . There is mild interstitial and peripancreatic edema centered around the pancreatic head and uncinat e process. The adrenal glands are within normal limits. Cirrhotic liver. Recannulization of the umbil ical vein. Unremarkable gallbladder. No discrete liver mass identified. 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 Symmetric appearing mild bilateral hydroureteronephrosis with distended urinary bladder and urethra. The bladder measures up to approxi mately 15.5 cm in length. No renal or ureteral calculi or obstructing mass identified. Mildly enlarge d prostate. Atherosclerosis of the aorta without aneurysm. Tiny hiatal hernia. Mild wall thickening o f the distal stomach and duodenum with partial distention. Trace ascites within the dependent pelvis. No acute fracture. IMPRESSION: 1. Distended urinary bladder with symmetric mild bilateral hydroureteronephrosis. 2. No renal or ureteral calculi. 3. Findings suspicious for mild acute pancreatitis. Correlate with serum lipase. 3. Cirrhotic liver. 4. Additional findings as above. ACT 112: Negative or not required by law. The above report was generated using voice recognition software. It may contain grammatical, syntax o r spelling errors. Electronically signed by: Car Landrum M.D. 12/16/2024 1:31 PM
--- NOTE | 2024-12-16 14:12 | History & Physical Report ---
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 Had been at [facility] for rehab but discharged home three days ago. Was doing well until this morning when he was found by his family to be more confused with generalized weakness so brought to the ED. Work-up in the ED revealed elevated ammonia at 155, elevated creatinine at 4.17, elevated lactate at 3.0 (repeat 2.1 after fluids). Pt was given 30 ml/kg as per sepsis protocol. Noted to be hypothermic initially so Lia hugger applied with improvement of temp. We were called for admission for further evaluation and management. #Altered mental status - suspect multifactorial (sepsis, CEE, hepatic encephalopathhy) - Admit to PCU - Broad-spectrum empiric antibiotics (Zosyn, vancomycin) - Blood cultures pending - IVF resuscitation started in the ED - will continue at 100 ml/hr for another one liter - Labs in the AM - CBC, BMP - Fall and aspiration precautions #Sepsis with associated CEE and hypotension - unclear source of infection but noted recent bacteremia - Antibiotics as above - Resume midodrine - IVF initially with good clinical response #CEE - evidence of urinary retention on imaging - Titus placed in the ED, will continue - Monitor Is and Os #Cirrhosis secondary to EtOH #Hepatic encephalopathy - Restart Lactulose, continue Xifaxan - Diuretics currently on hold due to CEE - reevaluate tomorrow - Daily weights #Hypomagnesemia - Replete with IV mag sulfate - Recheck in the AM - Continue oral mag supplement #Type 2 Diabetes - new diagnosis during last admission - Diabetic diet - Basal insulin with prn sliding scale - BSG ACHS #History of alcohol abuse - Per family, no concern for recurrent use since discharge - High dose thiamine, continue folic acid - At risk prn Ativan protocol #Hypotension - Continue midodrine as previously taking Pt seen and reviewed with collaborating physician, Dr. Jeffers. Plan of care discussed and as outlined above. Code status: full code per discussion with sister (Modesta) at the bedside DVT prophylaxis: subQ heparin Spoke with sisters Mindy by phone and Modesta at the bedside. All questions answered. 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 He was recently admitted to [facility] 11/20-12/03/24 with metabolic encephalopathy found to be multifactorial related to sepsis, alcoholism, and liver disease. Found to have staph hominis bacteremia, which was treated with IV Zosyn and daptomycin initially, then transition to linezolid. Also newly diagnosed with type 2 diabetes with A1c of 10.1. Pt an CEE during that admission with creatinine of 3.15 on admission, improved with IVF and midodrine. Recommended to be on 2L fluid restriction and <2 g sodium diet. Discharged to [facility] for rehab initially and returned home three days ago - he does live alone. Family checked on him yesterday and he seemed mentally at his baseline, answering questions appropriately. This morning, his sister attempted to call him repeatedly and he didnt answer so she went over to check on him again. He was found sitting on the commode and was confused. His sister attempted to help him up but he was unsteady and weak, collapsed to the floor so she called EMS and he was brought to the ED. In the ED initially, he was lethargic and confused. Found to be hypothermic. With fluid resuscitation and warming, his mental status is improving. Now recognizes his sister, knows he is in the hospital although cannot tell which one. He does not recall how he got here. His sisters, Modesta and Mindy, provided much of the history. Additionally, his outpatient Epic records including nephrology f/u visit last week were extensively reviewed. Family reports that all alcohol has been removed from his home and they have no reason to believe that he has resumed drinking since discharge home. Allergies Allergy/AdvReac Type Severity Reaction Status Date / Time No Known Allergies Allergy Verified 04/04/21 18:18 Home Medications Medication Instructions Recorded Confirmed Type aspirin 81 mg tablet,delayed 81 mg PO DAILY 04/04/21 12/16/24 History release albuterol sulfate 90 mcg/actuation 1 puff inhalation DIRECTED PRN 11/20/24 12/16/24 History aerosol inhaler SOB/Wheezing L.acidop,casei,lactis,rham-B.lact,sudhir 1 cap PO DAILY #7 caps 12/03/24 12/16/24 R x 625 mg (10 billion cell) capsule (Advanced Probiotic) folic acid 1 mg tablet 1 mg PO QAM #30 tabs 12/03/24 12/16/24 Rx insulin glargine 100 unit/mL 35 unit (0.35 mL) SC DAILY #10 mL 12/03/24 12/16/24 Rx subcutaneous solution (Lantus U-100 Insulin) magnesium chloride 64 mg 128 mg (2 x 64 mg) PO BID #60 tabs 12/03/24 12/16/24 Rx (magnesium chloride) tablet,delayed release (Mag 64) midodrine 2.5 mg tablet 2.5 mg PO TID@0800,1200,1700 #60 12/03/24 12/16/24 Rx tabs pantoprazole 40 mg tablet,delayed 40 mg PO DAILY #30 tabs 12/03/24 12/16/24 Rx release potassium chloride 20 mEq 40 meq (2 x 20 mEq) PO BID #60 tabs 12/03/24 12/16/24 Rx tablet,extended release(part/cryst) rifaximin 550 mg tablet (Xifaxan) 550 mg PO BID #60 tabs 12/03/24 12/16/24 Rx spironolactone 25 mg tablet 25 mg PO BID #60 tabs 12/03/24 12/16/24 Rx thiamine HCl (vitamin B1) 100 mg 100 mg PO DAILY #30 tabs 12/03/24 12/16/24 Rx tablet torsemide 40 mg tablet 40 mg PO BID #60 tabs 12/03/24 12/16/24 Rx white petrolatum-mineral oil 1 applic EXT BID #454 grams 12/03/24 12/16/24 Rx topical cream (Dermacerin topical cream) Past Med/Surg History Problem List (Updated 12/16/24 @ 17:54 by Millicent Linton DO) Hypomagnesemia (Acute) Type 2 diabetes mellitus Urinary retention Hyperammonemia (Acute) CEE (acute kidney injury) (Acute) Altered mental status (Acute) Metabolic encephalopathy Positive blood culture Cirrhosis Sepsis Vomiting (Acute) Elevated lactic acid level (Acute) Alcohol abuse (Acute) Hypotension (Acute) Medical History (Updated 12/16/24 @ 17:54 by Millicent Linton DO) Congenital cataract of both eyes Hypertension BPH NOS w ur obs/LUTS Renal calculi Retained ureteral stent Alcohol dependence Surgical History (Updated 12/16/24 @ 17:26 by Claudia Aguirre PA-C) S/P ureteral stent placement S/P lens implant Family History Other Breast cancer Diabetes Heart disease Social History Smoking Status: Never smoker Second Hand Exposure: No; Do You Dip or Chew Tobacco: Yes; Hx Alcohol Use: Yes Alcohol type: beer Preferred Language: Kyrgyz Communication Ability: Impaired Chief Deputy Required: No Beliefs That Will Affect Care: None Current Living Situation: Alone current occupational status: disabled Feels Safe at Home: Yes Assistive Devices: None and Hearing Aid - Bilateral Review of Systems Review of Systems: Limited due to confusion - see HPI Physical Exam Physical Exam: General: sleeping but arouses to verbal stimulation HEENT: slightly dry oral mucosa Neck: supple, trachea midline Heart: RRR Lungs: CTA bilaterally on the anterior Abdomen: soft, NT, +BS Extremities: no pedal edema, distal pulses intact Neurologic: Oriented to self, knows he's in the hospital but not which one, recognizes his sister at the bedside; moving all extremities. Skin: warm, dry Results & Data Results & Data Vital Signs (Past 12 Hours) Vital Signs Temp Pulse Pulse Resp BP BP Pulse Ox 12/16/24 12:45 94 H 20 99/59 L 100 12/16/24 12:30 93 H 12 97/63 L 100 12/16/24 12:15 92 H 12 97/67 L 100 12/16/24 12:15 35.7 C L 12/16/24 12:00 88 20 96/56 L 100 12/16/24 11:45 93 H 20 90/65 L 100 12/16/24 11:30 91 H 20 87/54 L 100 12/16/24 11:15 99 H 16 97/57 L 99 12/16/24 11:04 92 H 16 95/52 L 100 12/16/24 10:40 35.6 C L 12/16/24 10:40 35.6 C L 12/16/24 10:16 74 20 86/59 L 100 12/16/24 10:14 12/16/24 10:02 97 H 12/16/24 09:46 94 H 16 87/51 L 95 O2 Del Method 12/16/24 12:45 Room Air 12/16/24 12:30 Room Air 12/16/24 12:15 Room Air 12/16/24 12:15 12/16/24 12:00 Room Air 12/16/24 11:45 Room Air 12/16/24 11:30 Room Air 12/16/24 11:15 Room Air 12/16/24 11:04 Room Air 12/16/24 10:40 12/16/24 10:40 12/16/24 10:16 Room Air 12/16/24 10:14 Room Air 12/16/24 10:02 12/16/24 09:46 Room Air Laboratory Results Lab Results 12/16/24 12/16/24 12/16/24 Range/Units 09:47 10:12 10:56 WBC 7.79 (4.8-10.8) K/ul RBC 3.68 L (4.70-6.10) M/uL Hgb 12.3 L (14.0-18.0) g/dl Hct 34.6 L (42.0-52.0) % MCV 94.0 (80.0-100.0) fL MCH 33.4 (25.0-34.0) pg MCHC 35.5 (32.0-36.0) g/dL RDW Std Deviation 50.4 H (36.4-46.3) fL RDW Coeff of Martir 14.6 H (11.5-14.5) % Plt Count 154 (130-400) K/uL MPV 10.4 (9.4-12.4) fL Immature Gran % (Auto) 0.4 % Neut % (Auto) 63.8 % Lymph % (Auto) 23.9 % Dale % (Auto) 10.4 % Eos % (Auto) 0.6 % Baso % (Auto) 0.9 % Neut # (Auto) 4.97 (1.40-6.50) K/uL Lymph # (Auto) 1.86 (1.20-3.40) K/uL Dale # (Auto) 0.81 H (0.11-0.59) K/uL Eos # (Auto) 0.05 (0.00-0.50) K/uL Baso # (Auto) 0.07 (0.00-0.20) K/uL Immature Gran # (Auto) 0.03 (0.01-0.20) K/uL PT 11.0 (9.0-12.0) Seconds INR 1.0 (0.9-1.1) VBG pH (7.36-7.41) VBG pCO2 (38-50) mmHg VBG pO2 mmHg VBG HCO3 mmol/L VBG O2 Saturation % VBG Base Excess mEq/L Sodium 131 L (136-145) mmol/L Potassium 4.0 (3.5-5.1) mmol/L Chloride 94 L (98-107) mmol/L Carbon Dioxide 25 (21-32) mmol/L Anion Gap 12 H (3-11) BUN 61 H (6-23) mg/dl Creatinine 4.17 H (0.6-1.4) mg/dl Est Cr Clr Drug Dosing 19.5 ml/min eGFR 15.53 BUN/Creatinine Ratio 14.6 (10-20) Glucose 159 H (70-99(Fasting)) mg/dl Lactate 3.0 H* (0.4-2.0) mmol/L Calcium 9.6 (8.6-10.3) mg/dl Magnesium 1.6 L (1.7-2.4) mg/dl Total Bilirubin 1.8 H (0.2-1.0) mg/dl Direct Bilirubin 0.7 H (0-0.2) mg/dl AST 57 H (13-39) U/L ALT 63 H (7-52) U/L Alkaline Phosphatase 223 H (34-104) U/L Ammonia (18-72) umol/L Total Creatine Kinase (30-223) U/L Troponin I High Sens 11.8 (0-20) pg/ml Total Protein 8.2 (6.0-8.3) gm/dl Albumin 3.4 (3.4-5.0) gm/dl Procalcitonin 1.63 H (0-0.5) ng/ml Urine Color Yellow Urine Appearance Clear (Clear) Urine pH 5.5 (4.5-7.5) Ur Specific Conklin 1.010 (1.000-1.030) Urine Protein Negative (Negative) Urine Glucose (UA) Negative (Negative) Urine Ketones Negative (Negative) Urine Blood Negative (Negative) Urine Nitrite Negative (Negative) Urine Bilirubin Negative (Negative) Urine Urobilinogen Negative (Negative) Ur Leukocyte Esterase Negative (Negative) Ethyl Alcohol mg/dL (<10.0) mg/dl Adenovirus (PCR) Not Detected (NotDetected) B. pertussis DNA (PCR) Not Detected (NotDetected) B.parapertussis DNA PCR Not Detected (NotDetected) C. pneumoniae DNA (PCR) Not Detected (NotDetected) Coronavirus OC43 (PCR) Not Detected (NotDetected) Coronavirus HKU1 (PCR) Not Detected (NotDetected) Coronavirus 229E (PCR) Not Detected (NotDetected) SARS-CoV-2 (PCR) Not Detected (NotDetected) Coronavirus NL63 (PCR) Not Detected (NotDetected) Human Metapneumovir PCR Not Detected (NotDetected) Influenza Type A (PCR) Not Detected (NotDetected) Influenza Type B (PCR) Not Detected (NotDetected) M. pneumoniae (PCR) Not Detected (NotDetected) Parainfluenza 1 (PCR) Not Detected (NotDetected) Parainfluenza 2 (PCR) Not Detected (NotDetected) Parainfluenza 3 (PCR) Not Detected (NotDetected) Parainfluenza 4 (PCR) Not Detected (NotDetected) RSV (PCR) Not Detected (NotDetected) Entero/Rhino (PCR) Not Detected (NotDetected) 12/16/24 12/16/24 Range/Units 11:06 12:42 WBC (4.8-10.8) K/ul RBC (4.70-6.10) M/uL Hgb (14.0-18.0) g/dl Hct (42.0-52.0) % MCV (80.0-100.0) fL MCH (25.0-34.0) pg MCHC (32.0-36.0) g/dL RDW Std Deviation (36.4-46.3) fL RDW Coeff of Martir (11.5-14.5) % Plt Count (130-400) K/uL MPV (9.4-12.4) fL Immature Gran % (Auto) % Neut % (Auto) % Lymph % (Auto) % Dale % (Auto) % Eos % (Auto) % Baso % (Auto) % Neut # (Auto) (1.40-6.50) K/uL Lymph # (Auto) (1.20-3.40) K/uL Dale # (Auto) (0.11-0.59) K/uL Eos # (Auto) (0.00-0.50) K/uL Baso # (Auto) (0.00-0.20) K/uL Immature Gran # (Auto) (0.01-0.20) K/uL PT (9.0-12.0) Seconds INR (0.9-1.1) VBG pH 7.34 L (7.36-7.41) VBG pCO2 43 (38-50) mmHg VBG pO2 25 mmHg VBG HCO3 23 mmol/L VBG O2 Saturation < 60.0 % VBG Base Excess -2.6 mEq/L Sodium (136-145) mmol/L Potassium (3.5-5.1) mmol/L Chloride (98-107) mmol/L Carbon Dioxide (21-32) mmol/L Anion Gap (3-11) BUN (6-23) mg/dl Creatinine (0.6-1.4) mg/dl Est Cr Clr Drug Dosing ml/min eGFR BUN/Creatinine Ratio (10-20) Glucose (70-99(Fasting)) mg/dl Lactate 2.1 H* (0.4-2.0) mmol/L Calcium (8.6-10.3) mg/dl Magnesium (1.7-2.4) mg/dl Total Bilirubin (0.2-1.0) mg/dl Direct Bilirubin (0-0.2) mg/dl AST (13-39) U/L ALT (7-52) U/L Alkaline Phosphatase (34-104) U/L Ammonia 151.0 H (18-72) umol/L Total Creatine Kinase 55 (30-223) U/L Troponin I High Sens (0-20) pg/ml Total Protein (6.0-8.3) gm/dl Albumin (3.4-5.0) gm/dl Procalcitonin (0-0.5) ng/ml Urine Color Urine Appearance (Clear) Urine pH (4.5-7.5) Ur Specific Conklin (1.000-1.030) Urine Protein (Negative) Urine Glucose (UA) (Negative) Urine Ketones (Negative) Urine Blood (Negative) Urine Nitrite (Negative) Urine Bilirubin (Negative) Urine Urobilinogen (Negative) Ur Leukocyte Esterase (Negative) Ethyl Alcohol mg/dL < 10.0 (<10.0) mg/dl Adenovirus (PCR) (NotDetected) B. pertussis DNA (PCR) (NotDetected) B.parapertussis DNA PCR (NotDetected) C. pneumoniae DNA (PCR) (NotDetected) Coronavirus OC43 (PCR) (NotDetected) Coronavirus HKU1 (PCR) (NotDetected) Coronavirus 229E (PCR) (NotDetected) SARS-CoV-2 (PCR) (NotDetected) Coronavirus NL63 (PCR) (NotDetected) Human Metapneumovir PCR (NotDetected) Influenza Type A (PCR) (NotDetected) Influenza Type B (PCR) (NotDetected) M. pneumoniae (PCR) (NotDetected) Parainfluenza 1 (PCR) (NotDetected) Parainfluenza 2 (PCR) (NotDetected) Parainfluenza 3 (PCR) (NotDetected) Parainfluenza 4 (PCR) (NotDetected) RSV (PCR) (NotDetected) Entero/Rhino (PCR) (NotDetected) Diagnostic Findings Chest X-Ray 12/16/24 09:55 XR chest 1V portable HISTORY: 59 years-old Male Sepsis acute sepsis COMPARISON: CTA chest 11/30/2024 TECHNIQUE: AP view of the chest FINDINGS: Cardiac silhouette is upper limits of normal in size. Lungs are mildly hypoinflated. Resolution of the previously noted right pleural effusion with right basilar consolidation. No pneumothorax, pleural effusion or air space opacification to a study. Bones appear grossly intact. IMPRESSION: 1. Hypoinflation without acute process of the chest. 2. Resolution of the previously noted right pleural effusion with right basilar consolidation. ACT 112: Negative or not required by law. The above report was generated using voice recognition software. It may contain grammatical, syntax or spelling errors. Electronically signed by: Car Landrum M.D. 12/16/2024 10:[address] 12/16/24 10:20 CT head/brain wo con CLINICAL HISTORY: 59 years-old Male with ams. Acutely altered mental status TECHNIQUE: Multiple axial CT images of the head were obtained without contrast. A dose lowering technique was utilized adhering to the principles of ALARA. CT DOSE: 953.61 mGy.cm COMPARISON: 11/20/2024 FINDINGS: No acute intracranial hemorrhage, midline shift, intracranial mass, hydrocephalus, territorial ischemia or abnormal extra-axial collection. Involutional changes with chronic microvascular ischemic disease. Chronic left frontal lobe floers radiata/basal ganglia infarct. The calvarium is intact. Developmental incomplete bony fusion involves the posterior arch of C1. Left-sided scleral banding. Prior bilateral lens repair. The paranasal sinuses, mastoid air cells, and middle ear cavities are clear. IMPRESSION: No acute intracranial abnormality. ACT 112: Negative or not required by law. The above report was generated using voice recognition software. It may contain grammatical, syntax or spelling errors. Electronically signed by: Car Landrum M.D. 12/16/2024 11:06 AM Abdomen/Pelvis CT 12/16/24 11:[address] WITHOUT CONTRAST CT DOSE: 1420.68 mGy.cm HISTORY: Acute kidney injury in patient with history of cirrhosis and ascites new CEE TECHNIQUE: Multiaxial CT images of the abdomen and pelvis were performed without contrast. A dose lowering technique was utilized adhering to the principles of ALARA. COMPARISON STUDY: November 20, 2024 FINDINGS: Limited exam secondary to positioning. Cardiomegaly. Right hemidiaphragmatic elevation. Mild bibasilar atelectasis. No pneumatosis or pneumoperitoneum. Spleen is upper limits of normal in size. There is mild interstitial and peripancreatic edema centered around the pancreatic head and uncinate process. The adrenal glands are within normal limits. Cirrhotic liver. Recannulization of the umbilical vein. Unremarkable gallbladder. No discrete liver mass identified. 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 Symmetric appearing mild bilateral hydroureteronephrosis with distended urinary bladder and urethra. The bladder measures up to approximately 15.5 cm in length. No renal or ureteral calculi or obstructing mass identified. Mildly enlarged prostate. Atherosclerosis of the aorta without aneurysm. Tiny hiatal hernia. Mild wall thickening of the distal stomach and duodenum with partial distention. Trace ascites within the dependent pelvis. No acute fracture. IMPRESSION: 1. Distended urinary bladder with symmetric mild bilateral hydroureteronephrosis. 2. No renal or ureteral calculi. 3. Findings suspicious for mild acute pancreatitis. Correlate with serum lipase. 3. Cirrhotic liver. 4. Additional findings as above. ACT 112: Negative or not required by law. The above report was generated using voice recognition software. It may contain grammatical, syntax or spelling errors. Electronically signed by: Car Landrum M.D. 12/16/2024 1:31 PM Medications Administered Discontinued Medications Sodium Chloride (Nss) 1,000 mls @ 999 mls/hr IV .Q1H1M ONE Stop: 12/16/24 11:17 Last Infusion: 12/16/24 12:17 Dose: Infused Documented By: Admin: 12/16/24 10:52 Dose: 999 mls/hr Documented By: Infusion: 12/16/24 10:52 Dose: Infused Documented By: NRElvie Admin: 12/16/24 10:46 Dose: 999 mls/hr Documented By: OFELIA Cefepime HCl (Maxipime 2000mg) 2,000 mg in 20 mls @ 5 mls/min IV NOW STA; Protocol Stop: 12/16/24 10:40 Last Admin: 12/16/24 10:57 Dose: 5 mls/min Documented By: OFELIA Vancomycin HCl 1,500 mg/ (Sodium Chloride) 530 mls @ 200 mls/hr IV NOW ONE Stop: 12/16/24 13:15 Last Admin: 12/16/24 11:45 Dose: 200 mls/hr Documented By: NRElvie Sodium Chloride (Nss) 1,000 mls @ 999 mls/hr IV .Q1H1M ONE Stop: 12/16/24 11:38 Last Infusion: 12/16/24 11:53 Dose: Infused Documented By: Admin: 12/16/24 10:52 Dose: 999 mls/hr Documented By: OFELIA Magnesium Sulfate/Dextrose (Magnesium Sulfate / D5w) 1 gm in 100 mls @ 100 mls/hr IV NOW STA Stop: 12/16/24 11:47 Last Infusion: 12/16/24 12:05 Dose: Infused Documented By: Admin: 12/16/24 11:01 Dose: 100 mls/hr Documented By: OFELIA Sodium Chloride (Nss) 500 mls @ 999 mls/hr IV .Q31M ONE Stop: 12/16/24 13:10 Last Infusion: 12/16/24 13:24 Dose: Infused Documented By: Admin: 12/16/24 12:53 Dose: 999 mls/hr Documented By: OFELIA Supervising Physician Co-Signing Physician Notes 59-year-old with history of alcohol use disorder, cirrhosis comes to the hospital with altered mental status. He was discharged from the hospital on 12/03 and came back home couple of days ago. Altered mental status could be multifactorial (possible sepsis, CEE, hepatic encephalopathy). Plan to start empiric antibiotic with Zosyn and vancomycin, Titus catheter for urinary retention and IV fluids. Also start lactulose for hepatic encephalopathy. Also to be started on high-dose thiamine. I have reviewed the advanced practitioner's documentation, and I agree with, and take responsibility for the plan of care I spent a total of 30 minutes coordinating, documenting, and providing care for this patient excluding time spent in the performance of separately billed services. All of the aforementioned completed while collaborating with the assigned advanced practitioner for a full treatment plan (1) Altered mental status Altered mental status type: unspecified Qualified Code(s): R41.82 - Altered mental status, unspecified (5) Cirrhosis Ascites presence: unspecified Hepatic cirrhosis type: alcoholic cirrhosis Qualified Code(s): K70.30 - Alcoholic cirrhosis of liver without ascites (7) Sepsis Acute renal failure type: unspecified Sepsis acute organ dysfunction status: with acute organ dysfunction Sepsis type: sepsis due to unspecified organism Severe sepsis acute organ dysfunction type: acute renal failure Severe sepsis shock status: without septic shock Qualified Code(s): A41.9 - Sepsis, unspecified organism; R65.20 - Severe sepsis without septic shock; N17.9 - Acute kidney failure, unspecified (8) Type 2 diabetes mellitus Diabetes mellitus complication status: with other specified complication Diabetes mellitus joint terminal attack controller insulin use: with joint terminal attack controller use Qualified Code(s): E11.69 - Type 2 diabetes mellitus with other specified complication; Z79.4 - intermediate accountant (current) use of insulin
[2024-12-16] MEDS: SODIUM CHLORIDE 0.9% 1,000 ML IV SCH (14:16)
[2024-12-16] MEDS ORDERED: PIPERACILLIN/TAZOBACTAM 4.5 GM/100 ML BAG IV STA (14:34)
[2024-12-16] MEDS ORDERED: CARBOHYDRATES FOR HYPOGLYCEMIA PO PRN (15:05)
[2024-12-16] MEDS ORDERED: GLUCOSE 10 TAB/TUBE PO PRN (15:05)
[2024-12-16] MEDS ORDERED: GLUCOSE 40% GEL 15 GM TUBE PO PRN (15:05)
[2024-12-16] MEDS ORDERED: GLUCAGON FOR INJ 1 MG VIAL SQ PRN (15:05)
[2024-12-16] MEDS ORDERED: DEXTROSE 50% 50 ML SYRINGE IV PRN (15:05)
[2024-12-16] MEDS: THIAMINE HCL 250 MG in SODIUM CHLORIDE 0.9% 50 ML IV SCH (15:14)
[2024-12-16] MEDS ORDERED: LORazepam 1 MG TAB PO PRN (15:25)
[2024-12-16] MEDS: MIDODRINE HCL 2.5 MG TAB PO SCH (16:21)
[2024-12-16] MEDS: PIPERACILLIN/TAZOBACTAM 4.5 GM/100 ML BAG IV STA (17:09)
[2024-12-16] MEDS: LACTULOSE SYRUP 20 GM/30 ML UDC PO SCH ×2 (17:23→20:05)
[2024-12-16] MEDS: INSULIN ASPART PER UNIT CHARGE SC SCH (18:08)
[2024-12-16] MEDS: MAGNESIUM CHLORIDE W/CALCIUM 64MG DELAYED REL TAB PO SCH (20:05)
[2024-12-16] MEDS: MIDODRINE HCL 2.5 MG TAB PO STA (20:05)
[2024-12-16] MEDS: rifAXIMin 550 MG TABLET PO SCH (20:06)
[2024-12-16] MEDS: LANTUS PER UNIT CHARGE SQ SCH (20:49)
[2024-12-16] MEDS: HEPARIN SOD 5,000 UNIT/0.5 ML VIAL SQ SCH (20:49)
[2024-12-17] MEDS: PIPERACILLIN/TAZOBACTAM 4.5 GM/100 ML BAG IV SCH ×2 (02:57→12:31)
[2024-12-17 06:07] LABS: Basophils # (auto) 0.06 K/uL (0.00-0.20); Basophils % (auto) 1.1 %; Eosinophils # (auto) 0.04 K/uL (0.00-0.50); Eosinophils % (auto) 0.8 %; Hematocrit (blood only) 30.9 % (42.0-52.0); Hemoglobin 10.6 g/dl (14.0-18.0); Immature Granulocytes # (auto) 0.01 K/uL (0.01-0.20); Immature Granulocytes % (auto) 0.2 %; Lymphocytes # (auto) 1.25 K/uL (1.20-3.40); Lymphocytes % (auto) 23.9 %; Mean Corpuscular Hemoglobin 33.2 pg (25.0-34.0); Mean Corpuscular Hgb Conc 34.3 g/dL (32.0-36.0); Mean Corpuscular Volume 96.9 fL (80.0-100.0); Mean Platelet Volume 10.2 fL (9.4-12.4); Monocytes # (auto) 0.61 K/uL (0.11-0.59); Monocytes % (auto) 11.7 %; Neutrophils # (auto) 3.26 K/uL (1.40-6.50); Neutrophils % (auto) 62.3 %; Platelet Count 94 K/uL (130-400); RDW Standard Deviation 52.6 fL (36.4-46.3); Red Blood Count 3.19 M/uL (4.70-6.10); White Blood Count 5.23 K/ul (4.8-10.8)
[2024-12-17 06:31] LABS: Calcium 8.7 mg/dl (8.6-10.3); Magnesium 1.6 mg/dl (1.7-2.4); Potassium 3.8 mmol/L (3.5-5.1)
[2024-12-17 06:37] LABS: BUN Creatinine Ratio 21.1 (10-20); Creatinine Clr Calc Pharmacy 40.8 ml/min
[2024-12-17] MEDS: MAGNESIUM SULFATE / D5W 1 GM/100 ML BAG IV SCH (08:50)
[2024-12-17] MEDS: VANCOMYCIN HCL 1,000 MG/270 ML BAG IV ONE (08:54)
[2024-12-17] MEDS: PANTOprazole 40 MG TAB PO SCH (08:55)
[2024-12-17] MEDS: FOLIC ACID 1 MG TAB PO SCH (08:55)
[2024-12-17] MEDS: ADVANCED PROBIOTIC 625 MG CAPSULE PO SCH (08:55)
--- NOTE | 2024-12-17 10:44 | Pharmacy Report ---
Pharmacy PK ABX Note - Date of Service December 17, 2024 - Assessment and Plan Assessment 59 year old M receiving Vancomycin and Zosyn empirically for treatment of sepsis. * Day #2 of antimicrobial therapy. * Noted to be tachycardic and hypotensive upon admission. Recent admission [facility] this month for Staph hominis bacteremia. Treated with Zyvox, Cefepime, and Daptomycin during that visit. * Currently afebrile. MAPs holding > 65 mmHg. Blood cultures pending. Abx ordered empirically so 48 hour stop date of 12/19/24 at 0059 for now. * CEE noted upon admit, SCr 4.17 mg/dL (CrCl 19.5 mL/min). SCr improved to 1.99 mg/dL this AM (CrCl 41 mL/min). Zosyn dose increased to q8h. Lactate was elevated at 3 mmol/L with improvement to 2.1 mmol/L after fluid resuscitation. Procalcitonin 1.63 ng/mL. Plan Vancomycin * Loading dose: 1500 mg IV x 1 @ 1145 on 12/16/24 * Will dose per level for now given resolving CEE and empiric indication. Give 1000 mg IV vancomycin x 1 dose today around 0800. * Regimen is predicted to achieve target AUC/CHIOMA of 400-600 mg/L.hr * Level will not be ordered unless therapy is to extend beyond 48 hours Zosyn * 4.5 g IV every 8 hours Pharmacy will continue to follow and will adjust dose/frequency as necessary. Thank you. Pharmacy has transitioned to AUC monitoring for vancomycin. AUC/CHIOMA is the preferred PK/PD target and is associated with decreased risk of nephrotoxicity compared to traditional trough targets.
--- NOTE | 2024-12-17 14:32 | Hospitalist Progress Note ---
Date of Service December 17, 2024 Assessment & Plan (1) Acute hepatic encephalopathy: (2) 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 hyperplasia: (3) Type 2 diabetes mellitus: (4) CEE (acute kidney injury): (5) Cirrhosis: Plan Patient presented to the ED with acute confusion and weakness. Noted to have significantly elevated ammonia level and urinary retention. With treatment of lactulose and Xifaxan mental status is significantly improved Patient renal dysfunction and acute kidney injury has improved and returned to baseline with Titus catheter placement No evidence of bacterial infection at this time Discontinue antibiotics Maintain Titus catheter, difficult to start medications for prostate in the setting of hypotension Continue treatment for hepatic encephalopathy/cirrhosis Therapies Okgertrude BlanchardSutammie Patient may need rehab placement, case management to be involved Admission and Anticipated Discharge Date Admission Date: December 16, 2024 Subjective Patient feeling much better today. Mentation is much clearer. Admits that he may have trouble with his medications Physical Exam Physical Exam: Constitutional: Alert, nontoxic HEENT: Mucous membranes moist. Lungs: Clear to auscultation, decreased, no wheezes rales or rhonchi CV: S1-S2, regular Abdomen: Soft, nontender, nondistended Extremities: No significant edema Neuro: No focal deficits, weakness Psych: Cooperative, normal mood Results & Data Results & Data Vital Signs (Past 12 Hours) Vital Signs Temp Pulse Resp BP Pulse Ox O2 Del Method 12/17/24 10:59 36.6 C 77 18 112/64 98 Room Air 12/17/24 07:07 36.4 C L 94 H 18 102/68 99 Room Air 12/17/24 03:02 36.6 C 84 16 94/69 L 99 Room Air Diagnostic Findings Reviewed imaging, laboratory and diagnostic studies. Pertinent findings as below. 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
[2024-12-17] MEDS: TORSEMIDE 20 MG TAB PO SCH (20:30)
[2024-12-17] MEDS: POTASSIUM CHLORIDE CRTAB 20 MEQ TABCR PO SCH (20:34)
[2024-12-18 09:53] LABS: Basophils # (auto) 0.08 K/uL (0.00-0.20); Basophils % (auto) 1.3 %; Eosinophils # (auto) 0.06 K/uL (0.00-0.50); Eosinophils % (auto) 0.9 %; Hematocrit (blood only) 35.8 % (42.0-52.0); Hemoglobin 12.2 g/dl (14.0-18.0); Immature Granulocytes # (auto) 0.02 K/uL (0.01-0.20); Immature Granulocytes % (auto) 0.3 %; Lymphocytes % (auto) 21.9 %; Mean Corpuscular Hemoglobin 32.6 pg (25.0-34.0); Mean Corpuscular Hgb Conc 34.1 g/dL (32.0-36.0); Mean Corpuscular Volume 95.7 fL (80.0-100.0); Mean Platelet Volume 10.1 fL (9.4-12.4); Monocytes # (auto) 0.58 K/uL (0.11-0.59); Monocytes % (auto) 9.1 %; Neutrophils # (auto) 4.26 K/uL (1.40-6.50); Neutrophils % (auto) 66.5 %; Platelet Count 129 K/uL (130-400); RDW Coefficient of Variation 14.6 % (11.5-14.5); Red Blood Count 3.74 M/uL (4.70-6.10)
[2024-12-18 10:14] LABS: BUN Creatinine Ratio 17.6 (10-20); Calcium 9.3 mg/dl (8.6-10.3); Creatinine Clr Calc Pharmacy 49.2 ml/min; Magnesium 1.4 mg/dl (1.7-2.4); Potassium 4.1 mmol/L (3.5-5.1)
--- NOTE | 2024-12-18 11:50 | Discharge Summary ---
Discharge Summary Date of Service December 18, 2024 Principal Dx & Hospital Course #1 = Principal Diagnosis (1) Acute hepatic encephalopathy: (2) 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 hyperplasia: (3) Type 2 diabetes mellitus: (4) CEE (acute kidney injury): (5) Cirrhosis: (6) Orthostatic hypotension: Plan Patient is a 59-year-old gentleman with known cirrhosis and previous episodes of hepatic encephalopathy presents to the emergency room with altered mental status. In the emergency room and have elevated ammonia level as well as evidence of urinary retention. Patient was admitted to the hospital. He was treated with lactulose and restarted on his Xifaxan. By the following day his mental status had significantly improved. At time of discharge patient also had a Titus catheter placed. He had rapid diuresis of close to 2 L of urine. His acute on chronic kidney injury rapidly returned to his baseline with relief of the obstruction. Patient has had issues with urine retention on previous hospitalizations requiring straight cath and Titus catheter. Patient has BPH. Unfortunately with the patient's borderline low blood pressure and recurrent orthostasis requiring midodrine treatment medically for his BPH is unfeasible with either Flomax or Proscar. Discussed with the patient maintaining Titus catheter. He is agreeable to this. Will coordinate outpatient urology consultation for voiding trial and/or consideration of further intervention on his BPH. It was stressed to the patient his need for ongoing lactulose treatment. Dosing was decreased to 3 times a day. Instructed that he should morales ve 3-5 loose stools per day to maintain his current mental status. Patient was already anticipating having [facility] home health care come out to the house after his discharge from [facility]. Case management will ensure that this is resumed after his discharge from the hospital. He was also evaluated by senior ui ux designer. He was given prescriptions for glucometer, test strips and glucose monitoring. His insulin was adjusted. His diuretic dosages were adjusted as well. At time of discharge he is up and ambulatory. Vital signs are stable. Back to his baseline mental status. This was confirmed by phone conversation with his sister Modesta. She is made aware of plan discharge for today. Notes For Next Care Provider Titus is to be kept in place until evaluated by urology Will need ongoing management diabetes Medication Changes From Visit Lantus dose decreased Torsemide changed to daily Aldactone changed to daily Lactulose started 3 times daily Xifaxan continued Admission HPI Per Admitting Provider This is a 59 y/o male with history of cirrhosis due to alcoholism, HTN, bilateral hearing loss, congenital cataracts with resulting legally blind, recently diagnosed DM2, and other history as outlined below who was brought to the ED today via EMS with confusion and weakness. He was recently admitted to [facility] 11/20-12/03/24 with metabolic encephalopathy found to be multifactorial related to sepsis, alcoholism, and liver disease. Found to have staph hominis bacteremia, which was treated with IV Zosyn and daptomycin initially, then transition to linezolid. Also newly diagnosed with type 2 diabetes with A1c of 10.1. Pt an CEE during that admission with creatinine of 3.15 on admission, improved with IVF and midodrine. Recommended to be on 2L fluid restriction and <2 g sodium diet. Discharged to [facility] for rehab initially and returned home three days ago - he does live alone. Family checked on him yesterday and he seemed mentally at his baseline, answering questions appropriately. This morning, his sister attempted to call him repeatedly and he didnt answer so she went over to check on him again. He was found sitting on the commode and was confused. His sister attempted to help him up but he was unsteady and weak, collapsed to the floor so she called EMS and he was brought to the ED. In the ED initially, he was lethargic and confused. Found to be hypothermic. With fluid resuscitation and warming, his mental status is improving. Now recognizes his sister, knows he is in the hospital although cannot tell which one. He does not recall how he got here. His sisters, Modesta and Mindy, provided much of the history. Additionally, his outpatient Epic records including nephrology f/u visit last week were extensively reviewed. Family reports that all alcohol has been removed from his home and they have no reason to believe that he has resumed drinking since discharge home. Admission Exam Per Admitting Provider See H&P Discharge Exam Constitutional: Alert, nontoxic HEENT: Mucous membranes moist. Lungs: Clear to auscultation, decreased, no wheezes rales or rhonchi CV: S1-S2, regular Abdomen: Soft, nontender, nondistended, no significant fluid wave Extremities: No significant edema Neuro: No focal deficits, ambulatory, baseline mental status Psych: Cooperative, normal mood Updated Medication List Medication Instructions Recorded Confirmed Type aspirin 81 mg tablet,delayed 81 mg PO DAILY 04/04/21 12/16/24 History release albuterol sulfate 90 mcg/actuation 1 puff inhalation DIRECTED PRN 11/20/24 12/16/24 History aerosol inhaler SOB/Wheezing L.acidop,casei,lactis,rham-B.lact,sudhir 1 cap PO DAILY #7 caps 12/03/24 12/16/24 Rx 625 mg (10 billion cell) capsule (Advanced Probiotic) folic acid 1 mg tablet 1 mg PO QAM #30 tabs 12/03/24 12/16/24 Rx magnesium chloride 64 mg 128 mg (2 x 64 mg) PO BID #60 tabs 12/03/24 12/16/24 Rx (magnesium chloride) tablet,delayed release (Mag 64) pantoprazole 40 mg tablet,delayed 40 mg PO DAILY #30 tabs 12/03/24 12/16/24 Rx release potassium chloride 20 mEq 40 meq (2 x 20 mEq) PO BID #60 tabs 12/03/24 12/16/24 Rx tablet,extended release(part/cryst) thiamine HCl (vitamin B1) 100 mg 100 mg PO DAILY #30 tabs 12/03/24 12/16/24 Rx tablet white petrolatum-mineral oil 1 applic EXT BID #454 grams 12/03/24 12/16/24 Rx topical cream (Dermacerin topical cream) blood sugar diagnostic (FasterPantsuch #100 ea 12/18/24 Rx Ultra Test strips) blood-glucose meter #1 ea 12/18/24 Rx blood-glucose sensor (FreeStyle #2 ea 12/18/24 Rx Rj 3 Plus Sensor device) insulin glargine 100 unit/mL 10 unit (0.1 mL) SC BID 30 days 12/18/24 Rx subcutaneous solution (Lantus #10 mL U-100 Insulin) lactulose 20 gram oral packet 20 g PO TID #90 ea 12/18/24 Rx lancets 30 gauge (Onetouch Delica #200 ea 12/18/24 Rx Safety Lancet) midodrine 2.5 mg tablet 2.5 mg PO TID@0800,1200,1700 #90 12/18/24 Rx tabs pen needle, diabetic 32 gauge x #100 ea 12/18/24 Rx 5/32" rifaximin 550 mg tablet (Xifaxan) 550 mg PO BID #60 tabs 12/18/24 Rx spironolactone 25 mg tablet 25 mg PO DAILY #30 tabs 12/18/24 Rx torsemide 40 mg tablet 40 mg PO DAILY #30 tabs 12/18/24 Rx Hospital Stay Data Consultations 12/16/24 14:00 ED Decision to Admit Stat Diagnostic Imagining Performed 12/16/24 10:20 CT head/brain wo con Stat 12/16/24 11:13 CT abd pelvis wo con Stat Reviewed imaging, laboratory and diagnostic studies. Pertinent findings as below. WBC 6.4 Hemoglobin 12.2 Platelets of 129 Sodium 129, This is his baseline Potassium 4.1 Creatinine 1.65, baseline Magnesium 1.4, will be repleted Pending Results Patient Have Any Pending Studies at Discharge: No Discharge Instructions Given to Patient (Per Discharging Provider) You should have approximate 3-5 stools per day with your lactulose Continue to take other medications as prescribed Follow-up with urology for voiding trial. You must maintain Titus catheter until then. Home Health Attestation I certify that this patient is under my care and that I, or a physicians glass ribbon machine operator assistant working with me, had a face to-face encounter that meets the home health [id number] encounter requirements with this patient. The encounter with the patient was in whole, or in part, for the following medical condition, which is the primary reason for home health care (list medical condition): I certify that, based on my findings, the following services are medically necessary home health services: My clinical findings support the need for the above services because: Further, I certify that my clinical findings support that this patient is homebound (i.e. absences from home require considerable and taxing effort and are for medical reasons or congregation services or infrequently or of short duration when for other reasons) because: Certification for Home Health Services: Based on the above findings, I certify that this patient is confined to the home and needs intermittent senior care care, physical therapy and/or speech therapy or continues to need occupational therapy. The patient is under my care, and I have initiated the establishment of the plan of care. This patient will be followed by a physician who will periodically review the plan of care. Total Time Total Time Spent Total Time Spent (In Minutes): 40
[2024-12-18] MEDS: MAGNESIUM SULFATE / D5W 1 GM/100 ML BAG IV SCH (12:08)
[2024-12-18] MEDS: LACTULOSE SYRUP 20 GM/30 ML UDC PO SCH (14:17)
[2024-12-18 15:56] VITALS: BP 120/78; PULSE 100; RESP 16; TEMP 97.5; O2SAT 99
--- NOTE | 2024-12-19 08:58 | Electrocardiogram Report ---
Test Reason : Blood Pressure : */* mmHG Vent. Rate : 96 BPM Atrial Rate : 96 BPM P-R Int : 166 ms QRS Dur : 84 ms QT Int : 392 ms P-R-T Axes : 64 23 39 degrees QTcB Int : 495 ms Normal sinus rhythm Septal infarct (cited on or before 09-Jun-2022) Abnormal ECG When compared with ECG of 20-Nov-2024 20:39, No significant change was found Confirmed by Kevyn Real ([id number]) on 12/19/2024 8:58:05 AM Referred By: Confirmed By: Kevyn Real
[2024-12-19] MEDS ORDERED: TORSEMIDE 20 MG TAB PO SCH (09:00)
== END 2024-12-18 16:39 | disposition home health service (06) | DRG 442 ==
LOC: ED 09:38 → 2E 14:16 → SUATTDRO 14:16 → 2E 14:59 → 3N 12-17 17:35
DX: K76.82 Hepatic encephalopathy; Z79.4 Long term (current) use of insulin; F10.20 Alcohol dependence, uncomplicated; N40.1 Benign prostatic hyperplasia with lower urinary tract symptoms; I95.1 Orthostatic hypotension; H54.8 Legal blindness, as defined in USA; E83.42 Hypomagnesemia; E11.9 Type 2 diabetes mellitus without complications; Q12.0 Congenital cataract; Z79.82 Long term (current) use of aspirin; I10 Essential (primary) hypertension; N17.9 Acute kidney failure, unspecified; N13.8 Other obstructive and reflux uropathy; E72.20 Disorder of urea cycle metabolism, unspecified; K70.30 Alcoholic cirrhosis of liver without ascites; H91.93 Unspecified hearing loss, bilateral; Z79.01 Long term (current) use of anticoagulants

== ENCOUNTER 2024-12-27 13:55 | Inpatient (IN) ==
[2024-12-27 14:44] LABS: Basophils # (auto) 0.11 K/uL (0.00-0.20); Basophils % (auto) 1.1 %; Eosinophils # (auto) 0.02 K/uL (0.00-0.50); Eosinophils % (auto) 0.2 %; Hemoglobin 12.3 g/dl (14.0-18.0); Immature Granulocytes # (auto) 0.03 K/uL (0.01-0.20); Immature Granulocytes % (auto) 0.3 %; Lymphocytes % (auto) 14.4 %; Mean Corpuscular Hemoglobin 32.5 pg (25.0-34.0); Mean Corpuscular Hgb Conc 34.2 g/dL (32.0-36.0); Mean Corpuscular Volume 95.2 fL (80.0-100.0); Mean Platelet Volume 11.3 fL (9.4-12.4); Monocytes # (auto) 0.87 K/uL (0.11-0.59); Neutrophils # (auto) 7.28 K/uL (1.40-6.50); Platelet Count 104 K/uL (130-400); RDW Standard Deviation 48.7 fL (36.4-46.3); Red Blood Count 3.78 M/uL (4.70-6.10); White Blood Count 9.71 K/ul (4.8-10.8)
[2024-12-27 14:59] LABS: Albumin Globulin Ratio 0.6 (0.9-2); Albumin Level 3.1 gm/dl (3.4-5.0); Creatinine Clr Calc Pharmacy 33.9 ml/min; Globulin 4.9 gm/dl (2.5-4.0); Magnesium 1.3 mg/dl (1.7-2.4)
[2024-12-27 15:05] LABS: Troponin I High Sensitivity 11.4 pg/ml (0-20)
[2024-12-27 15:14] LABS: Thyroid Stimulating Hormone 1.91 uIu/ml (0.300-4.500)
[2024-12-27 15:25] LABS: Prothrombin Time 11.2 Seconds (9.0-12.0)
[2024-12-27] MEDS: SODIUM CHLORIDE 0.9% 1,000 ML IV SCH (15:40)
[2024-12-27] MEDS: MAGNESIUM SULFATE / D5W 1 GM/100 ML BAG IV SCH ×2 (15:41→18:54)
--- NOTE | 2024-12-27 15:58 | Emergency Department Note ---
Impression & Plan Generalized weakness, Hypomagnesemia, Noncompliance, Confusion ED Provider Note ED Provider Note NAME: MOY CRABTREE AGE:59 SEX: Male : 1965 ARRIVES VIA: EMS INFORMANT: Patient ED PROVIDER(s): Millicent Linton DO CHIEF COMPLAINT: Weakness, not taking his medications HPI: This is a 59-year-old male presents emergency department with family due to concern for inability to care for himself at home with worsening weakness and not taking his medications. Family concern possibly for elevated ammonia level as he is supposed to take lactulose daily and do not believe he is taking it for 2 days. Patient was recently admitted here also. They deny any recent changes to his meds. PAST MEDICAL HISTORY:See Below PAST SURGICAL HISTORY:See Below FAMILY HISTORY:See Below SOCIAL HISTORY:See Below HOME MEDICATIONS:See Below ALLERGIES:See Below VITALS:See Below PHYSICAL EXAMINATION: GENERAL: alert, unwell appearing, well nourished, no distress, non-toxic EYE EXAM: normal conjunctiva, PERRL and EOM's grossly intact OROPHARYNX: no exudate, no erythema, lips, buccal mucosa, and tongue normal and mucous membranes are dry NECK: supple, no nuchal rigidity, no adenopathy, non-tender LUNGS: Clear to auscultation. Normal chest wall mechanics, no w/r/r HEART: no murmurs, S1 normal and S2 normal ABDOMEN: abdomen soft, non-tender, normo-active bowel sounds, no masses, no rebound or guarding. BACK: Back is symmetrical on inspection and there is no deformity, no midline tenderness, no CVA tenderness. SKIN: no rashes, petechiae, orbruising UPPER EXTREMITIES: upper extremities are grossly normal. FROM, nml pulses b/l. LOWER EXTREMITIES: No pitting edema. FROM, nml pulses b/l. NEURO EXAM: Mildly confused and repetitive, cranial nerves II-XII grossly intact, normal speech, no facial droop,nogross weakness of arms, no gross weakness of legs. Gross sensation intact. No ataxia. Vital Signs: reviewed and remarkable Differential Diagnosis: dehydration, stroke, anemia, hypoglycemia, hyponatremia, hypernatremia, urinary tract infection, pneumonia, bronchitis, sepsis, gastroenteritis, additional abdominal pathology, metabolic abnormalities, as well as others were considered MEDICAL DECISION MAKING: THis is a 59 yo male who presents to the ER with increased weakness and mild confusion. Family also concerned for noncompliance and patient's ability to care for himself even with their help. Labs drawn and sent, IV established, EKG and CXR performed and interpreted at bedside, and patient placed on telemetry. He was sent for CT head additionally, and patient started on IVF. Labs reassuring - LFTs elevated but stable compared to prior as is anemia and thrombocytopenia. Creatinine elevated compared to prior. Hypomagnesemia also noted and patient started in IV repletion. Urine culture sent, patient with dumont. REsults discussed with sister at bedside. Case discussed with hospitalist team for additional evaluation and mgmt. Consultation(s): 175: Discussed with Stephen Bertrand hospitalist team, for additional evaluation and management. ER Treatment Provided: See below Diagnostics Interpreted By Me: -ECG: Sinus tachycardia at 110, normal axis, normal intervals, no acute ST/T wave changes -Cardiac Monitoring: An order was placed for continuous cardiac monitoring. The monitor shows a rate of 1002 with sinus tachycardia rhythm. -Laboratory studies: As stated above and show below. -Imaging studies: ct head: no ICH Triage Nursing Note Reviewed Prior/Outside Records Reviewed - DC summary from 12/18/24 reviewed Past Med/Surg History Problem List (Updated 12/28/24 @ 10:25 by Yuliana Patel PA-C) Complicated UTI (urinary tract infection) Alcoholic cirrhosis of liver Acute kidney injury superimposed on stage 3a chronic kidney disease Confusion (Acute) Noncompliance (Acute) Hypomagnesemia (Acute) Generalized weakness (Acute) Orthostatic hypotension 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 hyperplasia Acute hepatic encephalopathy Hypomagnesemia (Acute) Type 2 diabetes mellitus Urinary retention Hyperammonemia (Acute) CEE (acute kidney injury) (Acute) Altered mental status (Acute) Metabolic encephalopathy Positive blood culture Cirrhosis Sepsis Vomiting (Acute) Elevated lactic acid level (Acute) Alcohol abuse (Acute) Hypotension (Acute) Medical History Congenital cataract of both eyes Hypertension BPH NOS w ur obs/LUTS Renal calculi Retained ureteral stent Alcohol dependence Surgical History S/P ureteral stent placement S/P lens implant Family History Other Breast cancer Diabetes Heart disease Social History Smoking Status: Never smoker Second Hand Exposure: No; Do You Dip or Chew Tobacco: Yes; Hx Alcohol Use: Yes Alcohol type: beer and hard liquor Hx Substance Use: No Preferred Language: Greenlandic Communication Ability: Effective Kettle Tender Required: No Beliefs That Will Affect Care: None Current Living Situation: Alone Current Living Situation Comment: Lives in Apartment by himself. Family does check on him. current occupational status: disabled Other Information That Helps Us Care for You: No Feels Safe at Home: Yes Assistive Devices: Cane, Glasses and Hearing Aid - Bilateral Allergies Allergies Allergy/AdvReac Type Severity Reaction Status Date / Time No Known Allergies Allergy Verified 04/04/21 18:18 Home Meds Home Medications Medication Instructions Recorded Confirmed aspirin 81 mg tablet,delayed 81 mg PO DAILY 04/04/21 12/27/24 release albuterol sulfate 90 mcg/actuation 1 puff inhalation DIRECTED PRN 11/20/24 12/27/24 aerosol inhaler SOB/Wheezing Previous Rx's Medication Instructions Recorded L.acidop,casei,lactis,rham-B.lact,sudhir 1 cap PO DAILY #7 caps 12/03/24 625 mg (10 billion cell) capsule (Advanced Probiotic) folic acid 1 mg tablet 1 mg PO QAM #30 tabs 12/03/24 magnesium chloride 64 mg 128 mg (2 x 64 mg) PO BID #60 tabs 12/03/24 (magnesium chloride) tablet,delayed release (Mag 64) pantoprazole 40 mg tablet,delayed 40 mg PO DAILY #30 tabs 12/03/24 release potassium chloride 20 mEq 40 meq (2 x 20 mEq) PO BID #60 tabs 12/03/24 tablet,extended release(part/cryst) thiamine HCl (vitamin B1) 100 mg 100 mg PO DAILY #30 tabs 12/03/24 tablet white petrolatum-mineral oil 1 applic EXT BID #454 grams 12/03/24 topical cream (Dermacerin topical cream) blood sugar diagnostic ([employer] #100 ea 12/18/24 Ultra Test strips) blood-glucose meter #1 ea 12/18/24 blood-glucose sensor (FreeStyle #2 ea 12/18/24 Rj 3 Plus Sensor device) insulin glargine 100 unit/mL 10 unit (0.1 mL) SC BID 30 days 12/18/24 subcutaneous solution (Lantus #10 mL U-100 Insulin) lactulose 20 gram oral packet 20 g PO TID #90 ea 12/18/24 lancets 30 gauge ([employer] Delica #200 ea 12/18/24 Safety Lancet) midodrine 2.5 mg tablet 2.5 mg PO TID@0800,1200,1700 #90 12/18/24 tabs pen needle, diabetic 32 gauge x #100 ea 12/18/24" rifaximin 550 mg tablet (Xifaxan) 550 mg PO BID #60 tabs 12/18/24 spironolactone 25 mg tablet 25 mg PO DAILY #30 tabs 12/18/24 torsemide 40 mg tablet 40 mg PO DAILY #30 tabs 12/18/24 Results & Data (ED) Vital Signs Vital Signs - 24 hr 12/27/24 14:18 12/27/24 14:18 12/27/24 14:56 Temperature 36.5 C Temperature Source Axillary Pulse Rate 115 H 114 H Pulse Rate [Apical] Pulse Rate from SpO2 Sensor Pulse Rhythm Regular Pulse Strength Normal Respiratory Rate 18 Respiratory Effort / Characteristics Non-Labored Spontaneous Respiratory Depth Normal Respiratory Pattern Regular Blood Pressure 93/54 L Blood Pressure [Right Arm] Blood Pressure Mean 67 Blood Pressure Mean [Right Arm] Blood Pressure Position Semi-fowlers Blood Pressure Position [Right Arm] Pulse Oximetry 99 99 Oxygen Delivery Method Room Air Room Air Sepsis Recent Fever Within 48 Hours No Sepsis New/Unexplained Change in Mental Status Yes Sepsis Action Taken by Nursing No Action Required 12/27/24 15:00 12/27/24 15:33 12/27/24 15:37 Temperature Temperature Source Pulse Rate 107 H 110 H Pulse Rate [Apical] 108 H Pulse Rate from SpO2 Sensor 107 H 111 H Pulse Rhythm Pulse Strength Respiratory Rate 17 22 Respiratory Effort / Characteristics Non-Labored Spontaneous Respiratory Depth Normal Respiratory Pattern Regular Blood Pressure Blood Pressure [Right Arm] 93/59 L Blood Pressure Mean Blood Pressure Mean [Right Arm] 70 Blood Pressure Position Blood Pressure Position [Right Arm] Lying Pulse Oximetry 99 100 99 Oxygen Delivery Method Room Air Sepsis Recent Fever Within 48 Hours Sepsis New/Unexplained Change in Mental Status Sepsis Action Taken by Nursing 12/27/24 16:00 12/27/24 16:00 12/27/24 16:12 Temperature Temperature Source Pulse Rate 107 H 107 H Pulse Rate [Apical] Pulse Rate from SpO2 Sensor 107 H 107 H Pulse Rhythm Pulse Strength Respiratory Rate 14 15 Respiratory Effort / Characteristics Respiratory Depth Respiratory Pattern Blood Pressure 92/58 L Blood Pressure [Right Arm] Blood Pressure Mean 72 Blood Pressure Mean [Right Arm] Blood Pressure Position Blood Pressure Position [Right Arm] Pulse Oximetry 99 100 Oxygen Delivery Method Sepsis Recent Fever Within 48 Hours Sepsis New/Unexplained Change in Mental Status Sepsis Action Taken by Nursing 12/27/24 16:30 12/27/24 16:42 12/27/24 17:00 Temperature Temperature Source Pulse Rate 108 H Pulse Rate [Apical] Pulse Rate from SpO2 Sensor 105 H Pulse Rhythm Pulse Strength Respiratory Rate 16 Respiratory Effort / Characteristics Respiratory Depth Respiratory Pattern Blood Pressure 95/62 L 97/67 L Blood Pressure [Right Arm] Blood Pressure Mean 67 75 Blood Pressure Mean [Right Arm] Blood Pressure Position Blood Pressure Position [Right Arm] Pulse Oximetry Oxygen Delivery Method Sepsis Recent Fever Within 48 Hours Sepsis New/Unexplained Change in Mental Status Sepsis Action Taken by Nursing 12/27/24 17:00 Temperature Temperature Source Pulse Rate 105 H Pulse Rate [Apical] Pulse Rate from SpO2 Sensor 105 H Pulse Rhythm Pulse Strength Respiratory Rate 15 Respiratory Effort / Characteristics Respiratory Depth Respiratory Pattern Blood Pressure Blood Pressure [Right Arm] Blood Pressure Mean Blood Pressure Mean [Right Arm] Blood Pressure Position Blood Pressure Position [Right Arm] Pulse Oximetry 100 Oxygen Delivery Method Sepsis Recent Fever Within 48 Hours Sepsis New/Unexplained Change in Mental Status Sepsis Action Taken by Nursing Laboratory Data 12/28/24 06:46 12/28/24 06:46 Lab Results 12/27/24 12/27/24 Range/Units 14:15 14:58 WBC 9.71 (4.8-10.8) K/ul RBC 3.78 L (4.70-6.10) M/uL Hgb 12.3 L (14.0-18.0) g/dl Hct 36.0 L (42.0-52.0) % MCV 95.2 (80.0-100.0) fL MCH 32.5 (25.0-34.0) pg MCHC 34.2 (32.0-36.0) g/dL RDW Std Deviation 48.7 H (36.4-46.3) fL RDW Coeff of Martir 14.0 (11.5-14.5) % Plt Count 104 L (130-400) K/uL MPV 11.3 (9.4-12.4) fL Immature Gran % (Auto) 0.3 % Neut % (Auto) 75.0 % Lymph % (Auto) 14.4 % Lamb % (Auto) 9.0 % Eos % (Auto) 0.2 % Baso % (Auto) 1.1 % Neut # (Auto) 7.28 H (1.40-6.50) K/uL Lymph # (Auto) 1.40 (1.20-3.40) K/uL Lamb # (Auto) 0.87 H (0.11-0.59) K/uL Eos # (Auto) 0.02 (0.00-0.50) K/uL Baso # (Auto) 0.11 (0.00-0.20) K/uL Immature Gran # (Auto) 0.03 (0.01-0.20) K/uL PT 11.2 (9.0-12.0) Seconds INR 1.0 (0.9-1.1) Sodium 137 (136-145) mmol/L Potassium 4.0 (3.5-5.1) mmol/L Chloride 101 (98-107) mmol/L Carbon Dioxide 26 (21-32) mmol/L Anion Gap 10 (3-11) BUN 48 H (6-23) mg/dl Creatinine 2.09 H (0.6-1.4) mg/dl Est Cr Clr Drug Dosing 33.9 ml/min eGFR 35.57 BUN/Creatinine Ratio 23.0 H (10-20) Glucose 156 H (70-99(Fasting)) mg/dl Calcium 10.0 (8.6-10.3) mg/dl Magnesium 1.3 L (1.7-2.4) mg/dl Total Bilirubin 2.0 H (0.2-1.0) mg/dl AST 64 H (13-39) U/L ALT 64 H (7-52) U/L Alkaline Phosphatase 195 H (34-104) U/L Ammonia 40.0 (18-72) umol/L Troponin I High Sens 11.4 (0-20) pg/ml Total Protein 8.0 (6.0-8.3) gm/dl Albumin 3.1 L (3.4-5.0) gm/dl Globulin 4.9 H (2.5-4.0) gm/dl Albumin/Globulin Ratio 0.6 L (0.9-2) Lipase 74 (11-82) U/L TSH 1.910 (0.300-4.500) uIu/ml Administered Medications Aspirin (Aspirin 81 Mg Ectab) 81 mg PO DAILY OLIVIA Stop: 01/27/25 08:59 Last Admin: 12/28/24 08:24 Dose: 81 mg Documented By: MANDI Folic Acid (Folic Acid 1 Mg Tab) 1 mg PO QAM OLIVIA Stop: 01/27/25 08:59 Last Admin: 12/28/24 08:24 Dose: 1 mg Documented By: JIM Heparin Sodium (Porcine) (Heparin Sod 5,000 Unit/0.5 Ml Vial) 5,000 units SQ Q12 OLIVIA Stop: 01/26/25 20:59 Last Admin: 12/28/24 20:37 Dose: 5,000 units Documented By: Admin: 12/28/24 08:45 Dose: 5,000 units Documented By: Admin: 12/27/24 21:13 Dose: 5,000 units Documented By: KARL Sodium Chloride (Nss) 1,000 mls @ 100 mls/hr IV .Q10H [facility] Stop: 12/31/24 10:14 Last Admin: 12/28/24 20:09 Dose: 100 mls/hr Documented By: Infusion: 12/28/24 20:09 Dose: Infused Documented By: Admin: 12/28/24 11:04 Dose: 100 mls/hr Documented By: MANDI Ampicillin Sodium/Sulbactam Sodium (Unasyn) 3,000 mg in 100 mls @ 200 mls/hr IV Q4 OLIVIA Stop: 01/07/25 15:59 Last Admin: 12/28/24 23:29 Dose: 200 mls/hr Documented By: Infusion: 12/28/24 22:01 Dose: Infused Documented By: Admin: 12/28/24 20:13 Dose: 200 mls/hr Documented By: Infusion: 12/28/24 17:23 Dose: Infused Documented By: Admin: 12/28/24 16:26 Dose: 200 mls/hr Documented By: JIM Insulin Aspart (Insulin Aspart Per Unit Charge) 0 units SC ACHS OLIVIA Stop: 01/26/25 20:59 Last Admin: 12/28/24 20:28 Dose: Not Given Documented By: Admin: 12/28/24 17:31 Dose: 7 units Documented By: JIM Co-signed By: ANDREE Admin: 12/28/24 12:50 Dose: 13 units Documented By: JIM Co-signed By: MARY Admin: 12/28/24 08:45 Dose: 6 units Documented By: JIM Co-signed By: MADYSON Admin: 12/27/24 21:16 Dose: Not Given Documented By: KARL Insulin Glargine (Lantus Per Unit Charge) 0 units SC BID OLIVIA; Protocol Stop: 01/27/25 09:29 Last Admin: 12/28/24 20:30 Dose: Not Given Documented By: Admin: 12/28/24 10:19 Dose: 5 units Documented By: JIM Co-signed By: JANETH Lactobacillus Acidophilus (Advanced Probiotic 625 Mg Capsule) 625 mg PO DAILY [facility] Stop: 01/27/25 08:59 Last Admin: 12/28/24 08:24 Dose: 625 mg Documented By: JIM Lactulose (Lactulose Syrup 20 Gm/30 Ml Udc) 20 gm PO TID [facility] Stop: 01/26/25 20:59 Last Admin: 12/28/24 20:29 Dose: Not Given Documented By: Admin: 12/28/24 14:26 Dose: Not Given Documented By: Admin: 12/28/24 08:25 Dose: Not Given Documented By: Admin: 12/27/24 21:15 Dose: 20 gm Documented By: KARL Magnesium Chloride (Magnesium Chloride W/Calcium 64mg Delayed Rel Tab) 128 mg PO BID [facility] Stop: 01/26/25 20:59 Last Admin: 12/28/24 20:38 Dose: 128 mg Documented By: Admin: 12/28/24 08:23 Dose: 128 mg Documented By: Admin: 12/27/24 21:16 Dose: 128 mg Documented By: KARL Midodrine (Midodrine Hcl 2.5 Mg Tab) 2.5 mg PO TID@0800,1200,1700 OL[facility]IA Stop: 01/27/25 07:59 Last Admin: 12/28/24 17:24 Dose: 2.5 mg Documented By: Admin: 12/28/24 11:39 Dose: 2.5 mg Documented By: Admin: 12/28/24 08:24 Dose: 2.5 mg Documented By: JIM Pantoprazole Sodium (Pantoprazole 40 Mg Tab) 40 mg PO DAILY OLIVIA Stop: 01/27/25 08:59 Last Admin: 12/28/24 08:24 Dose: 40 mg Documented By: MANDI Rifaximin (Rifaximin 550 Mg Tablet) 550 mg PO BID OLIVIA Stop: 01/26/25 20:59 Last Admin: 12/28/24 20:38 Dose: 550 mg Documented By: Admin: 12/28/24 08:23 Dose: 550 mg Documented By: Admin: 12/27/24 21:17 Dose: 550 mg Documented By: KARL Thiamine HCl (Thiamine Hcl 100 Mg Tab) 100 mg PO DAILY OLIVIA Stop: 01/27/25 08:59 Last Admin: 12/28/24 08:23 Dose: 100 mg Documented By: MANDI Discontinued Medications Sodium Chloride (Nss) 1,000 mls @ 125 mls/hr IV .Q8H [facility] Stop: 12/30/24 14:59 Last Infusion: 12/27/24 21:46 Dose: Infused Documented By: Admin: 12/27/24 15:40 Dose: 125 mls/hr Documented By: TA Magnesium Sulfate/Dextrose (Magnesium Sulfate / D5w) 1 gm in 100 mls @ 100 mls/hr IV Q1H [facility] Stop: 12/27/24 17:02 Last Infusion: 12/27/24 18:52 Dose: Infused Documented By: Admin: 12/27/24 16:54 Dose: 100 mls/hr Documented By: Infusion: 12/27/24 16:52 Dose: Infused Documented By: [facility] Admin: 12/27/24 15:41 Dose: 100 mls/hr Documented By: TA Magnesium Sulfate/Dextrose (Magnesium Sulfate / D5w) 1 gm in 100 mls @ 100 mls/hr IV Q1H OL[facility]IA Stop: 12/27/24 20:20 Last Admin: 12/27/24 18:55 Dose: Not Given Documented By: Admin: 12/27/24 18:54 Dose: Not Given Documented By: IZYZ Ceftriaxone Sodium (Rocephin) 2,000 mg in 50 mls @ 100 mls/hr IV Q24H [facility] Stop: 01/02/25 02:59 Last Infusion: 12/28/24 04:38 Dose: Infused Documented By: Admin: 12/28/24 03:58 Dose: 100 mls/hr Documented By: KARL Sodium Chloride (Nss) 500 mls @ 999 mls/hr IV .Q31M ONE Stop: 12/28/24 03:18 Last Infusion: 12/28/24 03:47 Dose: Infused Documented By: Admin: 12/28/24 03:06 Dose: 999 mls/hr Documented By: KARL Sodium Chloride (Nss) 500 mls @ 999 mls/hr IV .Q31M ONE Stop: 12/28/24 12:15 Last Infusion: 12/28/24 12:28 Dose: Infused Documented By: Admin: 12/28/24 11:55 Dose: 999 mls/hr Documented By: JIM Insulin Glargine (Lantus Per Unit Charge) 5 units SC ONE ONE Stop: 12/28/24 11:46 Last Admin: 12/28/24 12:49 Dose: 5 units Documented By: JIM Co-signed By: [facility] Imaging Data Radiologist's Impression: Head CT 12/27/24 15:20 Technique: Axial computed tomography images were obtained of the brain without intravenous contrast. Comparison is made to the prior CT dated 12/16/2024 Findings: There is unchanged cerebral atrophy, within expected limits for the patient's age. Areas of decreased attenuation are seen within the periventricular white matter, likely representing chronic small vessel ischemic disease. 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 There is no definite sign of acute infarction. No intracranial hemorrhage is evident. No definite mass lesion is seen on this noncontrast examination. There is no midline shift or other form of herniation. No hydrocephalus is seen. No fracture is identified. The orbits and the visualized paranasal sinuses appear unremarkable. There is partial opacification of the mastoid air cells bilaterally Impression: 1. Unchanged cerebral atrophy, old infarct, and chronic small vessel ischemic disease 2. Partial opacification of the mastoid air cells, which may be due to inflammatory mastoiditis ACT 112: Positive. There are findings on this exam that require communication between the performing entity and the patient following Patient Test Result Information Act ([place] ACT 112) guidelines. Electronically signed by Demarco Bolton 12-27-2024 4:38 PM Discharge Plan Visit Data Chief Complaint: Weakness ED Provider: Millicent Linton Discharge Problem: Generalized weakness, Hypomagnesemia, Noncompliance, Confusion Patient Disposition: Admitted As Inpatient Condition: Fair Discharge Instructions Interventions: ED Discharge Assessment Last Done: 12/27/24 20:10
--- NOTE | 2024-12-27 16:39 | CT Scan Report ---
Technique: Axial computed tomography images were obtained of the brain without intravenous contrast. Comparison is made to the prior CT dated 12/16/2024 Findings: There is unchanged cerebral atrophy, within expected limits for the patient's age. Areas of decreased attenuation are seen within the periventricular white matter, likely representing chronic small vessel ischemic disease. 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 There is no definite sign of acute infarction. No intracranial hemorrhage is evident. No definite mass lesion is seen on this noncontrast examination. There is no midline shift or other form of herniation. No hydrocephalus is seen. No fracture is identified. The orbits and the visualized paranasal sinuses appear unremarkable. There is partial opacification of the mastoid air cells bilaterally Impression: 1. Unchanged cerebral atrophy, old infarct, and chronic small vessel ischemic disease 2. Partial opacification of the mastoid air cells, which may be due to inflammatory mastoiditis ACT 112: Positive. There are findings on this exam that require communication between the performing entity and the patient following Patient Test Result Information Act ([place] ACT 112) guidelines. Electronically signed by Demarco Bolton 12-27-2024 4:38 PM
--- OUTSIDE RECORDS SUMMARY | 2024-12-27 17:48 | External Medical Summary | Summary of Care ---
Author Name Unknown Organization [facility] Address [address] [place] [address] Phone [phone] Care Team Providers Care Systems Administration Analyst Name Role Phone Luly Guajardo PA-C Primary Care Provider [phone] Reason for Referral * Social Care (Within 3 days (urgent)) - Authorized Specialty Diagnoses / Procedures Referred By Aleks reyes Referred To Contact HOME CARE / [facility] Diagnoses Chronic alcohol dependence, continuous (HCC) Alcoholic cirrhosis, unspecified whether ascites present (HCC) Hepatic encephalopathy (HCC) Luly Guajardo PA-C [address] [place] [address] Phone: tel: fax: Referral ID Status Reason Start Date Expiration Date Visits Requested Visits Authorized [id number] Authorized Specialty Services Required 12/19/2024 [id number] Question Answer Referral Priority Within 3 days (urgent) Where should this appointment be scheduled? [facility] Does patient have multiple co-morbid conditions? Yes Does patient have [facility] insurance? Yes Comments Is referral coming from Care Coordination and Integration? No * Social Care (Within 3 days (urgent)) - Authorized Specialty Diagnoses / Procedures Referred By Aleks reyes Referred To Contact Art Gallery Director Diagnoses Chronic alcohol dependence, continuous (HCC) Alcoholic cirrhosis, unspecified whether ascites present (HCC) Hepatic encephalopathy (HCC) Luly Guajardo PA-C [address] [place] [address] Phone: tel: fax: Referral ID Status Reason Start Date Expiration Date Visits Requested Visits Authorized [id number] Authorized Specialty Services Required 12/19/2024 [id number] Question Answer Referral Priority Within 3 days (urgent) Where should this appointment be scheduled? [facility] Role Cigarette Book Maker Cigarette Book Maker Referral Reason Transition of Care (JUAN)/High Risk for Readmission Comments Is patient being transitioned from [facility] to Complex Case Management? No Reason for Visit * Reason Onset Date Comments Advice 12/17/2024 Encounter Details Date Type Department Care Team (Late st Contact Info) Description 12/17/2024 Telephone [facility], [address] [phone] Luly Guajardo PA-C [address] [address] Advice Allergies No known active allergiesdocumented as of this encounter (statuses as of 12/19/2024) Medications Aspirin 81 MG Oral Tablet Delayed Release 1 Tablet. 02/29/20 20 Active Polyethylene Glycol 3350 17 GM/SCOOP Oral Powder (MiraLax)Indicatio ns:Hepatic encephalopathy (HCC) Take 17 g by mouth in the morning. Dissolve one heaping tablespoon in 8 ounces of water or juice.. 510 g 11 01/29/20 24 Active Additional Information Patient not taking.Reported on 12/13/2024 rifAXIMin 550 MG Oral Tablet (Xifaxan)Indicatio ns:Hepatic encephalopathy (HCC) Take 1 Tablet by mouth in the morning and 1 Tablet before bedtime. 60 Tablet 4 02/01/20 24 Active Additional Information Patient not taking.Reported on 12/13/2024 Ventolin HFA 108 (90 Base) MCG/ACT Inhalation Aerosol SolutionIndication s:Chronic alcohol dependence, continuous (HCC),SOB (shortness of breath),LRTI (lower respiratory tract infection),Alcohol ic cirrhosis, unspecified whether ascites present (HCC) inhale 2 puffs by mouth every 4 hours if needed for wheezing or dyspnea 54 g 1 07/15/20 24 Active Additional Information Patient not taking.Reported on 12/13/2024 rifAXIMin 550 MG Oral Tablet (Xifaxan) Take 1 Tablet by mouth in the morning and 1 Tablet before bedtime. Active Magnesium Chloride 64 MG Oral Tablet Take by mouth. Active Spironolactone 25 MG Oral Tablet (Aldactone) Take 1 Tablet by mouth in the morning. Active Torsemide 40 MG Oral Tablet Take 40 mg by mouth 2 times a day in the morning and at noon. 12/14/19 25 Active documented as of this encounter (statuses as of 12/19/2024) Active Problems Problem Noted Date Diagnosed Date Alcoholic cirrhosis of liver without ascites 05/2023 Legally blind 10/28/2022 Obesity, Class II, BMI 35-39.9, isolated (see ac tual BMI) 10/28/2022 History of anoxic brain injury 10/28/2022 Thrombocytopenia 02/09/2022 HTN, goal below 130/80 05/18/2017 documented as of this encounter (statuses as of 12/19/2024) Resolved Problems Problem Noted Date Diagnosed Date Resolved Date Anoxic brain damage, not elsewhere classified 02/10/2010/28/2022 Fatty (change of) liver, not elsewhere classified 02/09/2022 10/28/2022 Bilateral hearing loss 05/18/201710/28 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 10/28/2022 Alcohol related seizure 05/18/201703/21 Left foot pain 05/10/2016 04/08/2019 ALCOH DEP [id number] 11/21/200305/2023 Spasm of muscle 11/21/2003 04/08/2019 SPRAIN LUMBOSACRAL 11/21/2003 9 documented as of this encounter (statuses as of 12/19/2024) Immunizations Name Administration Dates Next Due HEP [...] Telephone Encounter - Luly Guajardo PA-C - 12/19/2024 2:51 PM EDT Doing to need close follow up as he is very high risk of readmission Suggest [facility] if eligible Chronic alcohol dependence, continuous (HCC) (Primary) - POPULATION HEALTH REFERRAL OP - [facility] Alcoholic cirrhosis, unspecified whether ascites present (HCC) - POPULATION HEALTH REFERRAL OP - [facility] Hepatic encephalopathy (HCC) - POPULATION HEALTH REFERRAL OP - [facility] Luly Guajardo PA-C 12/19/2024 2:52 PM * Telephone Encounter - Mónica Ivan LPN - 12/17/2024 3:44 PM EDT DNL called Tairq regarding pt after initial call was dropped. Tariq from [facility] stated pt was referred to them for services ; however, before he could be seen he went back to the hospital. LIZA Sales DNL Stephen Muniz * Telephone Encounter - Sherry Angel MOISÉS - 12/17/2024 3:31 PM EDT Reason for patient's call: [facility] Caller was transferred to [place] at the nurse line. documented in this encounter Plan of Treatment Upcoming Encounters Date Type Department Care Team (Late st Contact Info) Description 12/25/2024 10:00 AM EDT Office Visit [facility]li He[facility] [address] [place] [phone] Luly Guajardo PA-C [address] [place] [address] 12/26/2024 2:00 PM EDT Scheduled Telephone [facility] [address] [place] [phone] [facility], Nurse Phone Call Interventional Pain [facility] [[email or web address] [address] [phone] 03/19/2025 10:00 AM EDT Office Visit [facility]li [address] [place] [phone] Luly Guajardo PA-C [address] [place] [address] Scheduled Procedures Name Priority Associated Diagnoses Date/Ti me COLONOSCOPY FLEXIBLE PROXIMAL DIAGNOSTIC Recall Colon cancer screening Scheduled Referrals Name Type Priority Associated Diagnoses Orde r Schedule POPULATION HEALTH REFERRAL OP Referral Within 3 days (urgent) Chronic alcohol dependence, continuous (HCC) Alcoholic cirrhosis, unspecified whether ascites present (HCC) Hepatic encephalopathy (HCC) Ordered: 12/19/2024 [facility] Referral Within 3 days (urgent) Chronic alcohol dependence, continuous (HCC) Alcoholic cirrhosis, unspecified whether ascites present (HCC) Hepatic encephalopathy (HCC) Ordered: 12/19/2024 Health Maintenance Due Date Last Done Comments [...] as of this encounter Visit Diagnoses Diagnosis Chronic alcohol dependence, continuous (HCC)- Primary Other and unspecified alcohol dependence, continuous drinking behavior Alcoholic cirrhosis, unspecified whether ascites present (HCC) Hepatic encephalopathy (HCC) Hepatic encephalopathy documented in this encounter Care Teams Systems Administration Analyst Relationship Specialty Start Date End Date Luly Guajardo PA-C [address] [address] PCP - General Physician Special Inspector 10/28/24 documented as of this encounter
--- OUTSIDE RECORDS SUMMARY | 2024-12-27 17:48 | External Medical Summary | Summary of Care ---
Author Name Unknown Organization [facility] Address [address] [place] [address] Phone [phone] Care Team Providers Care Manager Pool Name Role Phone Luly Guajardo PA-C Primary Care Provider [phone] Encounter Details Date Type Department Care Team (Late st Contact Info) Description 12/19/2024 Referral Triage [facility] [address] [place] [address] Amairani Rodriguez, MOISÉS [address] [place] [address] Allergies No known active allergiesdocumented as of [...] Left foot pain 05/10/2016 04/08/2019 ALCOH DEP [id number] 11/21/200305/2023 Spasm of muscle 11/21/2003 04/08/2019 SPRAIN [...] Description 12/25/2024 10:00 AM EDT Office Visit Family [facility] [address] [phone] Luly Guajardo PA-C [address] [address] 12/26/2024 2:00 PM EDT Scheduled Telephone [facility] [address] [place] [phone] Marie, Nurse Phone Call Interventional Pain [facility] [address] [place] [phone] 03/19/2025 10:00 AM EDT Office Visit [facility] [address]ower [address] [phone] Luly Guajardo PA-C [address] [address] Scheduled Procedures Name Priority Associated Diagnoses Date/Ti me COLONOSCOPY FLEXIBLE PROXIMAL DIAGNOSTIC Recall Colon cancer screening Health Maintenance Due Date Last Done Comments Pneumococcal Vaccine: 50+ Years (1 of 2 - PCV) 1983 Cologuard 2009 Fecal Occult Blood Test 2009 Sigmoidoscopy 2009 Depression Screening 04/08/2020 04/08/2019 COVID-19 Vaccine ( season) 2024 GFR 01/25/2025 01/26/2024, 10/19, 08/05/2022, [...] filedocumented as of this encounter Care Teams Manager Pool Relationship Specialty Start Date End Date Luly Guajardo PA-C [address] [place] [address] PCP - General Physician Saxophone Player 10/28/24 documented as of this encounter
--- OUTSIDE RECORDS SUMMARY | 2024-12-27 17:48 | External Medical Summary | Summary of Care ---
Author Name Unknown Organization [facility] Address [address] [place] [address] Phone [phone] Care Team Providers Care Pelt Salter Name Role Phone Luly Guajardo PA-C Primary Care Provider [phone] Reason for Referral * Evaluate & Treat - Unlimited Visits (Within 3 days (urgent)) - Authorized Specialty Diagnoses / Procedures Referred By Aleks reyes Referred To Contact Urology Diagnoses CEE (acute kidney injury) (HCC) BPH without obstruction/lower urinary tract symptoms Dumont catheter in place 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 hyperplasia Luly Guajardo PA-C [address] [address] Phone: tel: fax: Referral ID Status Reason Start Date Expiration Date Visits Requested Visits Authorized [id number] Authorized Specialty Services Required 12/25/2024 999 999 Question Answer Referral Priority Within 3 days (urgent) Where should this appointment be scheduled? [facility] What is the patient being referred for? Urinary Concerns Comments Dumont cath Reason for Visit * Reason Onset Date Comments Hospital Follow-Up Pt is present with sister, she states that pt was at the Hospital for sepsis. Hospital Follow-Up 12/25/2024 Encounter Details Date Type Department Care Team (Late st Contact Info) Description 12/25/2024 10:00 AM EDT Office Visit [facility] [address] [address] Luly Guajardo PA-C [address] [address] Hospital discharge follow-up*; Chronic alcohol dependence, continuous (HCC); Alcoholic cirrhosis, unspecified whether ascites present (HCC); Hepatic encephalopathy (HCC); HTN, goal below 140/90; Cellulitis of lower extremity, unspecified laterality; CEE (acute kidney injury) (HCC); Orthostatic hypotension; BPH without obstruction/lower urinary tract symptoms; Gastroesophageal reflux disease with esophagitis without hemorrhage; Hypokalemia; Type 2 diabetes mellitus without complication, unspecified whether joint terminal attack controller insulin use (HCC); Dumont catheter in place; 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 hyperplasia Allergies No known active allergiesdocumented as of this encounter (statuses as of 12/25/2024) Medications Aspirin 81 MG Oral Tablet Delayed Release 1 Tablet. 020 Active rifAXIMin 550 MG Oral Tablet (Xifaxan)Indicati ons:Hepatic encephalopathy (HCC) Take 1 Tablet by mouth in the morning and 1 Tablet before bedtime. 60 Tablet 4 024 Active Additional Information Patient not taking.Reported on 12/25/2024 Ventolin HFA 108 (90 Base) MCG/ACT Inhalation Aerosol SolutionIndicatio ns:Chronic alcohol dependence, continuous (HCC),SOB (shortness of breath),LRTI (lower respiratory tract infection),Alcoho lic cirrhosis, unspecified whether ascites present (HCC) inhale 2 puffs by mouth every 4 hours if needed for wheezing or dyspnea 54 g 1 024 Active Additional Information Patient not taking.Reported on 12/25/2024 rifAXIMin 550 MG Oral Tablet (Xifaxan) Take [...] the morning and at noon. 025 Active Folic Acid 1 MG Oral TabletIndications :Chronic alcohol dependence, continuous (HCC) Take 1 Tablet by mouth in the morning. Active Pantoprazole Sodium 40 MG Oral Tablet Delayed Release (Protonix)Indicat ions:Gastroesopha geal reflux disease with esophagitis without hemorrhage Take 1 Tablet by mouth in the morning. Active Potassium Chloride Keeley ER 20 MEQ Oral Tablet Extended ReleaseIndication s:Hypokalemia Take 2 Tablets by mouth in the morning and 2 Tablets before bedtime. Active B-1 100 MG Oral TabletIndications :Chronic alcohol dependence, continuous (HCC),Alcoholic cirrhosis, unspecified whether ascites present (HCC) Take 1 Tablet by mouth in the morning. 100 Tablet 1 Active Insulin Glargine Solostar 100 UNIT/ML Subcutaneous Solution Pen-injector (Lantus SoloStar)Indicati ons:Type 2 diabetes mellitus without complication, unspecified whether senior care insulin use (HCC) Inject 10 Units under the skin in the morning and 10 Units before bedtime. 10 mL 3 Active Lactulose 10 GM/15ML Oral Solution (Constulose)Indic ations:Hepatic encephalopathy (HCC) Take 30 mL by mouth in the morning and 30 mL at noon and 30 mL before bedtime. Active Midodrine HCl 2.5 MG Oral Tablet (Proamatine)Indic ations:Orthostati c hypotension Take 1 Tablet by mouth in the morning and 1 Tablet at noon and 1 Tablet in the evening. Active Polyethylene Glycol 3350 17 GM/SCOOP Oral Powder (MiraLax)Indicati ons:Hepatic encephalopathy (HCC) Take 17 g by mouth in the morning. Dissolve one heaping tablespoon in 8 ounces of water or juice.. 510 g 11 024 2024 Discontinued documented as of this encounter (statuses as of 12/25/2024) Active Problems Problem Noted Date Diagnosed Date Type 2 diabetes mellitus without complication Alcoholic cirrhosis of liver without ascites 05/2023 Legally blind 10/28/2022 Obesity, Class II, BMI 35-39.9, isolated (see ac tual BMI) 10/28/2022 History of anoxic brain injury 10/28/2022 Thrombocytopenia 02/09/2022 HTN, goal below 130/80 05/18/2017 documented as of this encounter (statuses as of 12/25/2024) Resolved Problems Problem Noted Date Diagnosed Date Resolved Date Anoxic brain damage, not elsewhere classified 02/10/2010/28/2022 Fatty (change of) liver, not elsewhere classified 02/09/2022 10/28/2022 Bilateral hearing loss 05/18/201710/28 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 10/28/2022 Alcohol related seizure 05/18/201703/21 Left foot pain 05/10/2016 04/08/2019 ALCOH DEP [id number] 11/21/200305/2023 Spasm of muscle 11/21/2003 04/08/2019 SPRAIN LUMBOSACRAL 11/21/2003 9 documented as of this encounter (statuses as of 12/25/2024) Immunizations Name Administration Dates Next Due HEP [...] Smoke Exposure: Current Smokeless Tobacco: Current Chew Tobacco Cessation:Ready to Q uit: Not Asked; Counseling Given: Not Answered Alcohol Use Standard Drinks/Week Comments Yes 0 [...] Sign Reading Time Taken Comments Blood Pressure 79/49 12/25/2024 10:05 AM EDT Pulse 103 12/25/2024 10:05 AM EDT Temperature 36 °C (96.8 °F) 12/25/2024 10:05 AM EDT Respiratory Rate 18 12/25/2024 10:05 AM EDT Oxygen Saturation 98% 12/25/2024 10:05 AM EDT Inhaled Oxygen Concentration - - Weight 74.9 kg (165 lb 3.2 oz) 12/25/2024 10:05 AM EDT Height 165.1 cm (5' 5") 12/25/2024 10:05 AM EDT Body Mass Index 27.49 12/25/2024 10:05 AM EDT documented in this encounter Progress Notes * Luly Guajardo PA-C - 12/25/2024 10:13 AM EDT SUBJECTIVE: Major Patino is a 59 year old male. Chief Complaint Patient presents with Hospital Follow-Up Pt is present with sister, she states that pt was at the Hospital for sepsis. Hospital Follow-Up Recent Admission: Patient was recently admitted to [facility]. The date of discharge was 12/18/2024. Discharge report received and reviewed. Actually had 2 admissions in November. Admitted for leg cellulitis went to [facility]. Then back to [facility]. Sister (Mindy) present and adds to history HPI: known cirrhosis with alcoholic encephalopathy presented to ed with altered mental status. All started with a leg cellulitis on the LLE He has some fluid retention in LE and it sounds like he was scratching and developed infection Treated and released Then regressed a bit and had mental status change that was fairly rapid. Admitted to [facility] on 12/16/2024. CEE due to obstructive nephroapthy from his bph Hepatic encephalopathy that is not always able to be regulated = patient lives at home and has assistance from family Ammonia was elevated at admission Given lactulose to counter this. Xifaxan was restarted. (Unclear if he stopped and when) That improved while there Once he was catheterized and rapidly diuresed 2L of fluid, CEE improved to his chronic levels of kidney disease. He had some orthostasis and did not tolerate flomax and proscar so left on a dumont per urology He is not liking the cathether Needs urology appointment. D/c summary suggested that he could do voiding trial. Patient Active Problem List Diagnosis HTN, goal below 130/80 Thrombocytopenia (HCC) Alcoholic cirrhosis of liver without ascites (HCC) Legally blind Obesity, Class II, BMI 35-39.9, isolated (see actual BMI) History of anoxic brain injury Type 2 diabetes mellitus without complication (HCC) Current Outpatient Medications Medication Sig Dispense Refill [...] day in the morning and at noon. Folic Acid 1 MG Oral Tablet Take 1 Tablet by mouth in the morning. Pantoprazole Sodium 40 MG Oral Tablet Delayed Release (Protonix) Take 1 Tablet by mouth in the morning. Potassium Chloride Keeley ER 20 MEQ Oral Tablet Extended Release Take 2 Tablets by mouth in the morning and 2 Tablets before bedtime. B-1 100 MG Oral Tablet Take 1 Tablet by mouth in the morning. 100 Tablet 1 Insulin Glargine Solostar 100 UNIT/ML Subcutaneous Solution Pen-injector (Lantus SoloStar) Inject 10 Units under the skin in the morning and 10 Units before bedtime. 10 mL 3 Lactulose 10 GM/15ML Oral Solution (Constulose) Take 30 mL by mouth in the morning and 30 mL at noon and 30 mL before bedtime. Midodrine HCl 2.5 MG Oral Tablet (Proamatine) Take 1 Tablet by mouth in the morning and 1 Tablet atnoon and 1 Tablet in the evening. Aspirin 81 MG Oral Tablet Delayed Release 1 Tablet. (Patient not taking: Reported on 12/25/2024) rifAXIMin 550 MG Oral Tablet (Xifaxan) Take 1 Tablet by mouth in the morning and 1 Tablet before bedtime. (Patient not taking: Reported on 12/25/2024) 60 Tablet 4 Ventolin HFA 108 (90 Base) MCG/ACT Inhalation Aerosol Solution inhale 2 puffs by mouth every 4 hours if needed for wheezing or dyspnea (Patient not taking: Reported on 12/25/2024) 54 g 1 No current facility-administered medications for this visit. Current and discharge medications have been reconciled. Review of patient's allergies indicates: No Known Allergies OBJECTIVE: BP 79/49 | Pulse 103 | Temp 96.8 °F (36 °C) (Tympanic) | Resp 18 | Ht 5' 5" (1.651 m) | Wt 165 lb3.2 oz (74.9 kg) | SpO2 98% | BMI 27.49 kg/m² | BSA 1.85 m² Review Of Systems: Skin: negative Eyes: known blindness Ears/Nose/Throat: negative Respiratory: negative Cardiovascular: negative Gastrointestinal: diarrhea from medications Genitourinary: prostate enlargement and dumont in place Musculoskeletal: pt denies significant joint pain or stiffness Neurologic: negative Psychiatric: negative Hematologic/Lymphatic/Immunologic: negative Endocrine: negative PHYSICAL EXAM: BP 79/49 | Pulse 103 | Temp 96.8 °F (36 °C) (Tympanic) | Resp 18 | Ht 5' 5" (1.651 m) | Wt 165 lb3.2 oz (74.9 kg) | SpO2 98% | BMI 27.49 kg/m² | BSA 1.85 m² General: alert, healthy, and no distress Head: Normocephalic, No masses, lesions, tenderness or abnormalities Eye Exam: PERRLA, extraocular movements intact Ears: External ears normal Nose: no mucosal erythema, no mucosal edema, no purulent discharge Oropharynx: no exudate, no erythema, lips, buccal mucosa, and tongue normal, and mucous membranes are moist Neck: supple, no adenopathy, no bruits, thyroid normal size, non-tender, without nodularity Heart: regular rate & rhythm, no murmur, no gallops, S-1 normal, and S-2 normal Lungs: chest symmetric with normal AP diameter, no chest deformities noted, no chest wall tenderness, lungs clear to auscultation Abdomen: abdomen soft, non-tender, normal bowel sounds, and no masses or organomegaly Back: back symmetric, no curvature, no costovertebral angle tenderness, range of motion is normal Extremities: less than 2 second capillary refill, no joint deformities, effusion, or inflammation Skin: skin color, texture, turgor are normal, LLE resolved cellulitis, some scabbing, hemosiderin staining from venous stasis ASSESSMENT: Hospital discharge follow-up (Primary) - DISCH MED RECON CUR MED LIS Chronic alcohol dependence, continuous (HCC) - DISCH MED RECON CUR MED LIS - FOLIC ACID; Future; Expected date: 12/25/2024 Alcoholic cirrhosis, unspecified whether ascites present (HCC) - DISCH MED RECON CUR MED LIS Hepatic encephalopathy (HCC) - DISCH MED RECON CUR MED LIS HTN, goal below 140/90 - DISCH MED RECON CUR MED LIS Cellulitis of lower extremity, unspecified laterality - DISCH MED RECON CUR MED LIS CEE (acute kidney injury) (HCC) - DISCH MED RECON CUR MED LIS - ADULT/PEDS UROLOGY REFERRAL OP Orthostatic hypotension - DISCH MED RECON CUR MED LIS BPH without obstruction/lower urinary tract symptoms - ADULT/PEDS UROLOGY REFERRAL OP Gastroesophageal reflux disease with esophagitis without hemorrhage Hypokalemia Type 2 diabetes mellitus without complication, unspecified whether joint terminal attack controller insulin use (HCC) - Insulin Glargine Solostar 100 UNIT/ML Subcutaneous Solution Pen-injector (Lantus SoloStar); Inject 10 Units under the skin in the morning and 10 Units before bedtime. Dumont catheter in place - ADULT/PEDS UROLOGY REFERRAL OP 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 hyperplasia - ADULT/PEDS UROLOGY REFERRAL OP Check-out note: Urology soon - has dumont cath and needs changed Updated med list Rev labs Rev options - urology appt - could be have a turp for prostate vs permacath Very volodymyr discussion with Mindy. He may need to have dumont lifelong vs procedure for prostate. Carlos not think he is a good candidate medically for prostate surgery due to his co-morbid factors butdefer that decision to urology. He is not a good candidate to self cath at home. Family is hoping to avoid placement. PLAN: Continue present medication(s): Referral(s) to: urology Family will check med list suspect his not taking his proamatine and that is why he is hypotensive Follow up in 6 week(s). Coordinate care with our on site Rn to reach out to family for discussion I spent a total of 40-54 minutes (exact time 55 mins) minutes on the date of service in preparation, delivery, and documentation of the care provided to Major Patino excluding any time spent in performance of separately billed services. Luly Guajardo PA-C documented in this encounter Nursing Notes * Pauline Parsons LPN - 12/25/2024 10:05 AM EDT Major Patino is a 59 year old male who presents today for Chief Complaint Patient presents with Hospital Follow-Up Pt is present with sister, she states that pt was at the Hospital for sepsis. documented in this encounter Plan of Treatment Upcoming Encounters Date Type Department Care Team (Late st Contact Info) Description 12/26/2024 2:00 PM EDT Scheduled Telephone Interventional Pain Center [facility] [address] [phone] Marie Nurse Phone Call Interventional Pain [facility] [address] [place] [phone] 03/17/2025 11:00 AM EDT Office Visit Urology, [facility] [address] [place] [phone] Eliud Meza MD [address] [address] 03/19/2025 10:00 AM EDT Office Visit [facility] Bower [address] [phone] Luly Guajardo PA-C [address] [address] 07/15/2025 3:40 PM EST Office Visit [facility] Heidy Bower [address] [phone] Luly Guajardo PA-C [address] [address] Scheduled Orders Name Type Priority Associated Diagnoses Orde r Schedule FOLIC ACID Lab Routine Chronic alcohol dependence, continuous (HCC) Expected: 12/25/2024 (Approximate), Expires: 12/25/2025 Scheduled Procedures Name Priority Associated Diagnoses Date/Ti me COLONOSCOPY FLEXIBLE PROXIMAL DIAGNOSTIC Recall Colon cancer screening Scheduled Referrals Name Type Priority Associated Diagnoses Orde r Schedule ADULT/PEDS UROLOGY REFERRAL OP Referral Within 3 days (urgent) CEE (acute kidney injury) (HCC) BPH without obstruction/lower urinary tract symptoms Dumont catheter in place 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 hyperplasia Ordered: 12/25/2024 Health Maintenance Due Date Last Done Comments Diabetic Foot Exam 1982 Pneumococcal Vaccine: 50+ Years (1 of 2 - PCV) 1983 Cologuard 2009 Fecal Occult Blood Test 2009 Sigmoidoscopy 2009 Depression Screening 04/08/2020 04/08/2019 HbA1c 07/28/2022 01/26/2022, 07/28/2021 Diabetic Eye Exam 02/17/2023 02/17/2022, , 02/17/2022, Additional history exists COVID-19 Vaccine ( season) 2024 Albumin/Creatinine Ratio 01/25/2025 01/26/2024, 10/19 GFR 01/25/2025 01/26/2024, 10/19, 08/05/2022, Additional history exists Influenza Vaccine (FLU shot) (Season Ended) 2025 08/01/2007, 08/01/2007 Colonoscopy 08/31/2025 08/31/2015, 08/31/2015 Colorectal Cancer Screening 08/31/2025 Lipid Panel 01/25/2029 01/26/2024, 10/19, 10/24/2017, Additional [...] as of this encounter Visit Diagnoses Diagnosis Hospital discharge follow-up- Primary Other follow-up examination Chronic alcohol dependence, continuous (HCC) Other and unspecified alcohol dependence, continuous drinking behavior Alcoholic cirrhosis, unspecified whether ascites present (HCC) Hepatic encephalopathy (HCC) Hepatic encephalopathy HTN, goal below 140/90 Unspecified essential hypertension Cellulitis of lower extremity, unspecified laterality CEE (acute kidney injury) (HCC) Acute kidney failure, unspecified Orthostatic hypotension BPH without obstruction/lower urinary tract symptoms Hypertrophy of prostate without urinary obstruction and other lower urinary tract symptoms (LUTS) Gastroesophageal reflux disease with esophagitis without hemorrhage Hypokalemia Hypopotassemia Type 2 diabetes mellitus without complication, unspecified whether senior care insulin use (HCC) Dumont catheter in place Other postprocedural status 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 hyperplasia documented in this encounter Care Teams Pelt Salter Relationship Specialty Start Date End Date Luly Guajardo PA-C [address] [address] PCP - General Physician All Source Intelligence Technician 10/28/24 documented as of this encounter
--- OUTSIDE RECORDS SUMMARY | 2024-12-27 17:48 | External Medical Summary | Summary of Care ---
Author Name Unknown Organization [facility] Address [address] [place] [address] Phone [phone] Care Team Providers Care [employer] Warrant Officer Name Role Phone Luly Guajardo PA-C Primary Care Provider [phone] Reason for Visit * Reason Onset Date Comments Appointment 12/25/2024 Titus Cath needs removed Encounter Details Date Type Department Care Team (Late st Contact Info) Description 12/25/2024 Telephone [facility] [place] [address] [phone] Luly Guajardo PA-C [address] [facility] [address] [address] Appointment (Titus Cath needs removed) Allergies No known active allergiesdocumented as of this encounter (statuses as of 12/25/2024) Medications Aspirin 81 MG Oral Tablet Delayed Release 1 Tablet. 02/29/20 20 Active rifAXIMin 550 MG Oral Tablet (Xifaxan)Indicatio [...] wheezing or dyspnea 54 g 1 07/15/20 Active Additional Information Patient not taking.Reported on [...] in the morning and at noon. 12/14/19 Active Folic Acid 1 MG Oral TabletIndications: Chronic alcohol dependence, continuous (HCC) Take 1 Tablet by mouth in the morning. 12/26/19 Active Pantoprazole Sodium 40 MG Oral Tablet Delayed Release (Protonix)Indicati ons:Gastroesophage al reflux disease with esophagitis without hemorrhage Take 1 Tablet by mouth in the morning. 12/26/19 Active Potassium Chloride Keeley ER 20 MEQ Oral Tablet Extended ReleaseIndications :Hypokalemia Take 2 Tablets by mouth in the morning and 2 Tablets before bedtime. 12/26/19 Active B-1 100 MG Oral TabletIndications: Chronic alcohol dependence, continuous (HCC),Alcoholic cirrhosis, unspecified whether ascites present (HCC) Take 1 Tablet by mouth in the morning. 100 Tablet 1 12/26/19 Active Insulin Glargine Solostar 100 UNIT/ML Subcutaneous Solution Pen-injector (Lantus SoloStar)Indicatio ns:Type 2 diabetes mellitus without complication, unspecified whether jail insulin use (HCC) Inject 10 Units under the skin in the morning and 10 Units before bedtime. 10 mL 3 12/26/19 Active Lactulose 10 GM/15ML Oral Solution (Constulose)Indica tions:Hepatic encephalopathy (HCC) Take 30 mL by mouth in the morning and 30 mL at noon and 30 mL before bedtime. 12/26/19 Active Midodrine HCl 2.5 MG Oral Tablet (Proamatine)Indica tions:Orthostatic hypotension Take 1 Tablet by mouth in the morning and 1 Tablet at noon and 1 Tablet in the evening. 12/26/19 Active documented as of this encounter (statuses [...] Left foot pain 05/10/2016 04/08/2019 ALCOH DEP [id number] 11/21/200305/2023 Spasm of muscle 11/21/2003 04/08/2019 SPRAIN [...] encounter Miscellaneous Notes * Telephone Encounter - Jass Dyson OSA - 12/25/2024 11:08 AM EDT Patient is scheduled for March 17. This is the next available with Urology, Patient was inform in the meantime to have catheter care with Leidy Hugo. Pt understood. * Telephone Encounter - Charlotte Orellana OSA - 12/25/2024 10:56 AM EDT Patient was seen at [facility] and needs to have Titus Cath removed. Please call patient to schedule. Thank you. documented in this encounter Plan of Treatment Upcoming Encounters Date Type Department Care Team (Late st Contact Info) Description 12/26/2024 2:00 PM EDT Scheduled Telephone Interventional Pain Center [facility] [address] [phone] Frank Nurse Phone Call Interventional Pain [facility] [address] [phone] 03/17/2025 11:00 AM EDT Office Visit Urology, [facility] [address] [phone] Eliud Meza MD [address] [address] 03/19/2025 10:00 AM EDT [facility] [address] [phone] Luyl Guajardo PA-C [address] [address] 07/15/2025 3:40 PM EST Office Visit Family Practice, [facility] [address] [phone] Luly Guajardo PA-C [address] [place] [address] Scheduled Procedures Name Priority Associated Diagnoses Date/Ti [...] filedocumented as of this encounter Care Teams [employer] Warrant Officer Relationship Specialty Start Date End Date Luly Guajardo PA-C [address] [facility] [place] [address] PCP - General Physician Aircraft Cleaner 10/28/24 documented as of this encounter
--- OUTSIDE RECORDS SUMMARY | 2024-12-27 17:48 | External Medical Summary | Summary of Care ---
Author Name Unknown Organization [facility] Address [address] [place] [address] Phone [phone] Care Team Providers Care Systems Program Manager Name Role Phone Luly Guajardo PA-C Primary Care Provider [phone] Reason for Visit * Reason Onset Date Comments Nurse Telephone Follow Up 12/26/2024 Encounter Details Date Type Department Care Team (Late st Contact Info) Description 12/26/2024 2:00 PM EDT Scheduled Telephone Interventional Pain Center [facility] [address] [place] [phone] Nurse Frank Phone Call Interventional Pain [facility] [address] [place] [phone] Arrived Allergies No known active allergiesdocumented as of this encounter (statuses as of 12/26/2024) Medications Aspirin 81 MG Oral Tablet Delayed [...] 2 diabetes mellitus without complication, unspecified whether retirement insulin use (HCC) Inject 10 Units under the skin in the morning and 10 Units before bedtime. 10 mL 3 12/26/19 25 Active Lactulose 10 GM/15ML Oral Solution (Constulose)Indica [...] as of this encounter (statuses as of 12/26/2024) Active Problems Problem Noted Date Diagnosed Date Type 2 diabetes mellitus without complication Alcoholic cirrhosis of liver without ascites 05/2023 Legally blind 10/28/2022 Obesity, Class II, BMI 35-39.9, isolated (see ac tual BMI) 10/28/2022 History of anoxic brain injury 10/28/2022 Thrombocytopenia 02/09/2022 HTN, goal below 130/80 05/18/2017 documented as of this encounter (statuses as of 12/26/2024) Resolved Problems Problem Noted Date Diagnosed Date Resolved Date Anoxic brain damage, not elsewhere classified 02/10/2010/28/2022 Fatty (change of) liver, not elsewhere classified 02/09/2022 10/28/2022 Bilateral hearing loss 05/18/201710/28 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 10/28/2022 Alcohol related seizure 05/18/201703/21 Left foot pain 05/10/2016 04/08/2019 ALCOH DEP [id number] 11/21/200305/2023 Spasm of muscle 11/21/2003 04/08/2019 SPRAIN LUMBOSACRAL 11/21/2003 9 documented as of this encounter (statuses as of 12/26/2024) Immunizations Name Administration Dates Next Due HEP [...] encounter Miscellaneous Notes * Telephone Encounter - Mirna Garcia LPN - 12/26/2024 9:58 AM EDT Procedure: L4/5 interlaminar epidural steroid injection on the right side with Dr. Chester on 11/08/24. Patient reports that back pain slightly improved after injection. Patient unable to give a percentage today as he has several other health issues going on. Patient rates pain 5/10 on pain scale at this time. Patient pain is right side low back intermittent achy radiating down right leg to just above the knee. Patient is happy with injection and will return call to the office when pain returns. documented in this encounter Plan of Treatment Upcoming Encounters Date Type Department Care Team (Late st Contact Info) Description 03/17/2025 11:00 AM EDT Office Visit Urology, [facility] [address] [place] [phone] Eliud Meza MD [address] [place] [address] 03/19/2025 10:00 AM EDT Office Visit [facility] [place] [address] [place] [phone] Luly Guajardo PA-C [address] [place] [address] 07/15/2025 3:40 PM EST Office Visit [facility] [place] [address] [place] [phone] Luly Guajardo PA-C [address] [place] [address] Scheduled Procedures Name Priority Associated Diagnoses Date/Ti [...] filedocumented as of this encounter Care Teams Systems Program Manager Relationship Specialty Start Date End Date Luly Guajardo PA-C [address] [place] [address] PCP - General Physician Yeast Culture Operator 10/28/24 documented as of this encounter
--- OUTSIDE RECORDS SUMMARY | 2024-12-27 17:48 | External Medical Summary | Summary of Care ---
Author Name Unknown Organization [facility] Address [address] [facility] [address] Phone [phone] Care Team Providers Care Personal Care Service Provider Name Role Phone Luly Guajardo PA-C Primary Care Provider [phone] Encounter Details Date Type Department Care Team (Late st Contact Info) Description 12/20/2024 Telephone [facility] Augustaraheem Mandel [address] [place] [phone] Luly Guajardo PA-C [address] [facility] [place] [address] Allergies No known active allergiesdocumented as of this encounter (statuses as of 12/24/2024) Medications Aspirin 81 MG Oral Tablet Delayed [...] as of this encounter (statuses as of 12/24/2024) Active Problems Problem Noted Date Diagnosed Date Alcoholic cirrhosis of liver without ascites 05/2023 Legally blind 10/28/2022 Obesity, Class II, BMI 35-39.9, isolated (see ac tual BMI) 10/28/2022 History of anoxic brain injury 10/28/2022 Thrombocytopenia 02/09/2022 HTN, goal below 130/80 05/18/2017 documented as of this encounter (statuses as of 12/24/2024) Resolved Problems Problem Noted Date Diagnosed Date Resolved Date Anoxic brain damage, not elsewhere classified 02/10/2010/28/2022 Fatty (change of) liver, not elsewhere classified 02/09/2022 10/28/2022 Bilateral hearing loss 05/18/201710/28 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 10/28/2022 Alcohol related seizure 05/18/201703/21 Left foot pain 05/10/2016 04/08/2019 [facility]COH DEP [id number] 11/21/200305/2023 Spasm of muscle 11/21/2003 04/08/2019 SPRAIN LUMBOSACRAL 11/21/2003 9 documented as of this encounter (statuses as of 12/24/2024) Immunizations Name Administration Dates Next Due HEP [...] encounter Miscellaneous Notes * Telephone Encounter - Milton Paulson PA-C - 12/20/2024 5:31 PM EDT Stephen Inboxologist Note Patient Call - Office Call Reviewed message from: Nursing So noted. No new orders from Inboxologist at this time. PCP to review upon her return. Milton Paulson PA-C 12/20/2024 5:31 PM * Telephone Encounter - Mónica Ivan LPN - 12/20/2024 11:13 AM EDT HARISH--Rand, nurse, from [facility] called to report that the pt has no power and they are unable to see him today. He will be seen tomorrow, 12/21. HH also had to put through a new order for referral and needed a Physician's name and was given Dr Rm. LIZA Sales DNDuane Muniz * Telephone Encounter - Yazan Shaffer OSA - 12/20/2024 10:40 AM EDT Reason for patient's call: Breann from [facility] (home health nurse) calling to speak with nurse Caller was transferred to Mónica at the nurse line. documented in this encounter Plan of Treatment Upcoming Encounters Date Type Department Care Team (Late st Contact Info) Description 12/25/2024 10:00 AM EDT Office Visit Family [facility]idy Bower [address] [address] [phone] Luly Guajardo PA-C [address] [place] [address] 12/26/2024 2:00 PM EDT Scheduled Telephone Interventional Pain Center [facility] [address] [place] [phone] Frank Nurse Phone Call Interventional Pain [facility] [address] [place] [phone] 03/19/2025 10:00 AM EDT Office Visit [facility] [address]idy [address] [place] [phone] Luly Guajardo PA-C [address] [place] [address] Scheduled Procedures Name Priority Associated Diagnoses Date/Ti [...] filedocumented as of this encounter Care Teams Personal Care Service Provider Relationship Specialty Start Date End Date Luly Guajardo PA-C [facility] [place] [address] PCP - General Physician Human Service Coordinator 10/28/24 documented as of this encounter
--- NOTE | 2024-12-27 17:50 | History & Physical Report ---
Date of Service December 27, 2024 Assessment & Plan (1) Altered mental status: (2) Alcoholic cirrhosis of liver: Plan: Major Patino is a 59y/o M with PMHx significant for alcoholic cirrhosis, thrombocytopenia, DM type II, HTN, CKD stage IIIa, history of anoxic brain injury, bilateral hearing loss and congenital cataracts of both eyes with resulting legal blindness who presented to the ED via EMS after his HH nurse noticed he seemed to be more altered than his baseline mentation level and weak. Patient A&Ox4 at time of admission. Knows situation, person, place and time/date. Recalls the events of today and days prior. Missed his home medications last evening. Appears to be mentating at his baseline status per discussion with his sister at bedside in the ED. Transient alteration of mental status possibly 2/2 hepatic encephalopathy due to medication noncompliance. Ammonia level WNL. LFTs appear to be at his baseline. No overt source of infection at this time. Will check UA. Head CT with no acute intracranial findings except for possible underlying inflammatory mastoiditis although patient is asymptomatic in this regard. Will check a brain MRI to rule out any possible etiologies for his altered mentation level. Continue lactulose, Xifaxan. Hold home diuretics for now 2/2 hypotension. Prior issues with recurrent orthostasis requiring midodrine treatment. Obtain PT/OT evaluations and closely monitor mentation status. Goal of 3-5 loose stools per day to maintain his current mental status. Continue midodrine. (3) Acute kidney injury superimposed on stage 3a chronic kidney disease: Plan: Fluctuating creatinine level in the setting of various diuretic regimen changes and underlying CKD stage IIIa. Baseline creatinine variable however appears to lie around 1.2-1.7 since November 2024. Creatinine 2.09 on admission, previously was 1.65 on 12/18/2024. Suspect CEE is multifactorial in setting of inadequate oral intake and diuretic use. Hold home diuretic regimen as per above. Hold on additional IVF for now to avoid fluid overload. Avoid nephrotoxic agents as able. Monitor repeat CMP in AM. Follows with [facility] nephrology as an outpatient. If no improvement in CEE with these measures, would be inclined to consult nephrology for further recommendations. (4) Type 2 diabetes mellitus: Plan: Hgb A1c 10.1% in November 2024 - first diagnosed during admission in early November 2024. Hold home insulin regimen. SSI regimen as per protocol. Appreciate assistance of glycemic pharmacy with insulin management. Follow BSG checks ACHS. (5) Hypomagnesemia: Plan: Mag 1.3 on presentation. K+ WNL. IV Mag x 2 bags repleted in the ED. Monitor repeat level in AM and replete PRN. Continue home magnesium supplementation. Other Chronic Medical Conditions: GERD - Continue PPI. HLD - Continue ASA. Prior Alcohol Abuse - No reported incidences of relapse. Continue folic acid and thiamine supplementation. DVT Prophylaxis: SQ Heparin Code Status: FULL CODE - As per direct discussion with patient at bedside in the ED. PCP: Luly Guajardo PA-C Disposition: Admit to med/telemetry for further inpatient evaluation and management. Patient seen in collaboration with Dr. Kuo. Please see addendum. I spent a total of 68 minutes coordinating, documenting, and providing care for this patient excluding time spent in the performance of separately billed services or time spent by another provider/QHP. This included personally reviewing all current laboratories and imaging studies, medical reconciliation, outpatient chart review and discussion with specialists. This chart was completed in part utilizing Speech Voice Recognition Software. Grammatical errors, random word insertions, pronoun errors, and incomplete sentences are an occasional consequence of this system due to software limitations, ambient noise, and hardware issues. Any formal questions or concerns about the content, text, or information contained within the body of this dictation should be directly addressed to the provider for clarification. History of Present Illness Chief Complaint: Altered, generalized weakness Primary Care Provider: Luly Guajardo PA-C Major Patino is a 59y/o M with PMHx significant for alcoholic cirrhosis, thrombocytopenia, DM type II, HTN, CKD stage IIIa, history of anoxic brain injury, bilateral hearing loss and congenital cataracts of both eyes with resulting legal blindness who presented to the ED via EMS after his HH nurse noticed he seemed to be more altered than his baseline mentation level and weak. History obtained from the patient, patient's sister at bedside, discussion with ED provider and associated chart review. Patient A&Ox4 with conversation. Knows situation, person, place and time/date. Recalls the prior events of today and days prior. He provides appropriate history with his sister supplementing addition information. Typically uses a walker or cane for ambulation but not very mobile at baseline. Has 3 sisters who live locally and routine check up on him. Currently lives at home alone. Missed his home medications last evening, including his lactulose and Xifaxan. Did however take his medications this morning. Had seemed confused and disoriented per nurse. Seemed to be repeating himself which is unusual. However, per sister at bedside, he seems to mentating at his baseline. He is very [place] at baseline and legally blind due to history of congenital cataracts of both eyes. Has chronic lateral nystagmus of both eyes per his sister. Most recently admitted on our service from 12/16/2024-12/18/2024 with acute hepatic encephalopathy and CEE superimposed on CKD stage IIIa due to obstructive uropathy in the setting of underlying BPH. Presented with similar symptoms at that time. Was discharged home with services through [facility]. Titus catheter was in place at time of discharge. No reported chest pain, SOB or abdominal pain. Has diarrhea "once in a while" from the lactulose. Did follow-up with his PCP on 12/25/2024 per extensive chart review following his most recent admission. No medication changes were made at that visit. Did fall going in to his PCP appointment but did not sustain any injuries. Patient follows with [facility] nephrology as an outpatient. Prior issues with recurrent orthostasis requiring midodrine treatment. Torsemide and Aldactone doses adjusted and subsequently reduced last admission. Fluctuating creatinine level in the setting of various diuretic regimen changes and underlying CKD stage IIIa. Baseline creatinine variable however appears to lie around 1.2-1.7 since November 2024. Started on lactulose last admission and had his Lantus dose reduced. Allergies Allergy/AdvReac Type Severity Reaction Status Date / Time No Known Allergies Allergy Verified 04/04/21 18:18 Home Medications Medication Instructions Recorded Confirmed Type aspirin 81 mg tablet,delayed 81 mg PO DAILY 04/04/21 12/27/24 History release albuterol sulfate 90 mcg/actuation 1 puff inhalation DIRECTED PRN 11/20/24 12/27/24 History aerosol inhaler SOB/Wheezing L.acidop,casei,lactis,rham-B.lact,sudhir 1 cap PO DAILY #7 caps 12/03/24 12/27/24 Rx 625 mg (10 billion cell) capsule (Advanced Probiotic) folic acid 1 mg tablet 1 mg PO QAM #30 tabs 12/03/24 12/27/24 Rx magnesium chloride 64 mg 128 mg (2 x 64 mg) PO BID #60 tabs 12/03/24 12/27/24 Rx (magnesium chloride) tablet,delayed release (Mag 64) pantoprazole 40 mg tablet,delayed 40 mg PO DAILY #30 tabs 12/03/24 12/27/24 Rx release potassium chloride 20 mEq 40 meq (2 x 20 mEq) PO BID #60 tabs 12/03/24 12/27/24 Rx tablet,extended release(part/cryst) thiamine HCl (vitamin B1) 100 mg 100 mg PO DAILY #30 tabs 12/03/24 12/27/24 Rx tablet white petrolatum-mineral oil 1 applic EXT BID #454 grams 12/03/24 12/27/24 Rx topical cream (Dermacerin topical cream) blood sugar diagnostic (Seahorse BioscienceTouch #100 ea 12/18/24 12/27/24 Rx Ultra Test strips) blood-glucose meter #1 ea 12/18/24 12/27/24 Rx blood-glucose sensor (FreeStyle #2 ea 12/18/24 12/27/24 Rx Rj 3 Plus Sensor device) insulin glargine 100 unit/mL 10 unit (0.1 mL) SC BID 30 days 12/18/24 12/27/24 Rx subcutaneous solution (Lantus #10 mL U-100 Insulin) lactulose 20 gram oral packet 20 g PO TID #90 ea 12/18/24 12/27/24 Rx lancets 30 gauge (Onetouch Delica #200 ea 12/18/24 12/27/24 Rx Safety Lancet) midodrine 2.5 mg tablet 2.5 mg PO TID@0800,1200,1700 #90 12/18/24 12/27/24 Rx tabs pen needle, diabetic 32 gauge x #100 ea 12/18/24 12/27/24 Rx 5/32" rifaximin 550 mg tablet (Xifaxan) 550 mg PO BID #60 tabs 12/18/24 12/27/24 Rx spironolactone 25 mg tablet 25 mg PO DAILY #30 tabs 12/18/24 12/27/24 Rx torsemide 40 mg tablet 40 mg PO DAILY #30 tabs 12/18/24 12/27/24 Rx Past Med/Surg History Problem List Alcoholic cirrhosis of liver Acute kidney injury superimposed on stage 3a chronic kidney disease Confusion (Acute) Noncompliance (Acute) Hypomagnesemia (Acute) Generalized weakness (Acute) Orthostatic hypotension 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 hyperplasia Acute hepatic encephalopathy Hypomagnesemia (Acute) Type 2 diabetes mellitus Urinary retention Hyperammonemia (Acute) CEE (acute kidney injury) (Acute) Altered mental status (Acute) Metabolic encephalopathy Positive blood culture Cirrhosis Sepsis Vomiting (Acute) Elevated lactic acid level (Acute) Alcohol abuse (Acute) Hypotension (Acute) Medical History Congenital cataract of both eyes Hypertension BPH NOS w ur obs/LUTS Renal calculi Retained ureteral stent Alcohol dependence Surgical History S/P ureteral stent placement S/P lens implant Family History Other Breast cancer Diabetes Heart disease Social History Smoking Status: Never smoker Second Hand Exposure: No; Do You Dip or Chew Tobacco: Yes; Hx Alcohol Use: Yes Alcohol type: beer Preferred Language: Danish Communication Ability: Effective [employer] Offbearer Required: No Beliefs That Will Affect Care: None Current Living Situation: Alone current occupational status: disabled Feels Safe at Home: Yes Assistive Devices: None Review of Systems Review of Systems: At least ten systems reviewed and negative, except as noted in the HPI. Physical Exam Physical Exam: Please refer to Dr. Kuo's addendum for physical examination findings. Results & Data Results & Data Vital Signs (Past 12 Hours) Vital Signs Temp Pulse Pulse Resp BP BP Pulse Ox 12/27/24 17:00 105 H 15 100 12/27/24 17:00 97/67 L 12/27/24 16:42 108 H 16 12/27/24 16:30 95/62 L 12/27/24 16:12 107 H 15 100 12/27/24 16:00 107 H 14 99 12/27/24 16:00 92/58 L 12/27/24 15:37 108 H 22 93/59 L 99 12/27/24 15:33 110 H 17 100 12/27/24 15:00 107 H 99 12/27/24 14:56 114 H 12/27/24 14:18 99 12/27/24 14:18 36.5 C 115 H 18 93/54 L 99 O2 Del Method 12/27/24 17:00 12/27/24 17:00 12/27/24 16:42 12/27/24 16:30 12/27/24 16:12 12/27/24 16:00 12/27/24 16:00 12/27/24 15:37 Room Air 12/27/24 15:33 12/27/24 15:00 12/27/24 14:56 12/27/24 14:18 Room Air 12/27/24 14:18 Room Air Laboratory Results Short CBC 12/27/24 Range/Units 14:15 WBC 9.71 (4.8-10.8) K/ul Hgb 12.3 L (14.0-18.0) g/dl Hct 36.0 L (42.0-52.0) % Plt Count 104 L (130-400) K/uL BMP 12/27/24 14:15 Sodium 137 Potassium 4.0 Chloride 101 Carbon Dioxide 26 BUN 48 H Creatinine 2.09 H Glucose 156 H Calcium 10.0 Liver Function 12/27/24 Range/Units 14:15 Total Bilirubin 2.0 H (0.2-1.0) mg/dl AST 64 H (13-39) U/L ALT 64 H (7-52) U/L Alkaline Phosphatase 195 H (34-104) U/L Albumin 3.1 L (3.4-5.0) gm/dl Diagnostic Findings Head CT 12/27/24 15:20 Technique: Axial computed tomography images were obtained of the brain without intravenous contrast. Comparison is made to the prior CT dated 12/16/2024 Findings: There is unchanged cerebral atrophy, within expected limits for the patient's age. Areas of decreased attenuation are seen within the periventricular white matter, likely representing chronic small vessel ischemic disease. 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 There is no definite sign of acute infarction. No intracranial hemorrhage is evident. No definite mass lesion is seen on this noncontrast examination. There is no midline shift or other form of herniation. No hydrocephalus is seen. No fracture is identified. The orbits and the visualized paranasal sinuses appear unremarkable. There is partial opacification of the mastoid air cells bilaterally Impression: 1. Unchanged cerebral atrophy, old infarct, and chronic small vessel ischemic disease 2. Partial opacification of the mastoid air cells, which may be due to inflammatory mastoiditis ACT 112: Positive. There are findings on this exam that require communication between the performing entity and the patient following Patient Test Result Information Act ([place] ACT 112) guidelines. Electronically signed by Demarco Bolton 12-27-2024 4:38 PM Medications Administered Sodium Chloride (Nss) 1,000 mls @ 125 mls/hr IV .Q8H OLIVIA Stop: 12/30/24 14:59 Last Admin: 12/27/24 15:40 Dose: 125 mls/hr Documented By: TA Discontinued Medications Magnesium Sulfate/Dextrose (Magnesium Sulfate / D5w) 1 gm in 100 mls @ 100 mls/hr IV Q1H OLIVIA Stop: 12/27/24 17:02 Last Admin: 12/27/24 16:54 Dose: 100 mls/hr Documented By: Infusion: 12/27/24 16:52 Dose: Infused Documented By: Admin: 12/27/24 15:41 Dose: 100 mls/hr Documented By: TNK Code Status & VTE Plan Code Status FULL CODE Supervising Physician Co-Signing Physician Notes Patient seen and examined Sister reports he was confused this AM and had not taken his po meds since after yesterday AM necessitating presentation. General: Not in acute distress Eyes: Anisocoria,+some visual deficits/nystagmus (which are not new per sister) ENMT: External ear and nose normal, oropharynx normal Respiratory: Normal respiratory effort, no respiratory distress, lungs clear to auscultation, no crackles and no wheezes Cardiovascular: RRR S1 S2 Gastrointestinal (Abdomen): Abdomen is not distended, soft, non-tender to palpation, no guarding, no palpable hepatosplenomegaly, normal bowel sounds Musculoskeletal: Chronic stasis changes Neurologic: Alert and oriented x 3, No focal weakness, sensation grossly intact Psychiatric: +confusion Labs notable for Cr 2.09, Mg 1.3, AST 64, ALT 64, Alk P 195, Ammonia [address] noted old infarct, inflammatory mastoiditis Encephalopathy, Hepatic encephalopathy is possible based on history. However, ammonia level is within normal range Considering nystagmus (though may be related to visual deficits which are not new), get MRI brain Hold SAUTE CHEF diuretics for now in view of acute on chronic kidney disease. Reassess in AM Other plans as detailed by Elza Charles PA-C I spent a total of 35minutes coordinating, documenting and providing care for this patient excluding time spent in performance of separately billed services (1) Altered mental status Altered mental status type: unspecified Qualified Code(s): R41.82 - Altered mental status, unspecified (2) Alcoholic cirrhosis of liver Ascites presence: unspecified Qualified Code(s): K70.30 - Alcoholic cirrhosis of liver without ascites (4) Type 2 diabetes mellitus Diabetes mellitus complication status: with other specified complication Diabetes mellitus detention insulin use: with detention use Qualified Code(s): E11.69 - Type 2 diabetes mellitus with other specified complication; Z79.4 - group home (current) use of insulin
[2024-12-27] MEDS ORDERED: DEXTROSE 50% 50 ML SYRINGE IV PRN (19:25)
[2024-12-27] MEDS ORDERED: GLUCOSE 10 TAB/TUBE PO PRN (19:25)
[2024-12-27] MEDS ORDERED: PHARMACY GLYCEMIC MGMT CONSULT PRN (19:25)
[2024-12-27] MEDS ORDERED: GLUCOSE 40% GEL 15 GM TUBE PO PRN (19:25)
[2024-12-27] MEDS ORDERED: GLUCAGON FOR INJ 1 MG VIAL SQ PRN (19:25)
[2024-12-27] MEDS ORDERED: CARBOHYDRATES FOR HYPOGLYCEMIA PO PRN (19:25)
[2024-12-27] MEDS ORDERED: ACETAMINOPHEN 325 MG TAB PO PRN (20:58)
[2024-12-27] MEDS ORDERED: MAGNESIUM HYDROXIDE SUSP 30 ML UDC PO PRN (20:58)
[2024-12-27] MEDS ORDERED: ONDANSETRON INJ 2 MG/ML 2 ML VIAL IV PRN (20:58)
[2024-12-27] MEDS ORDERED: POLYETHYLENE (MIRALAX) 17 GM PACK PO PRN (20:58)
[2024-12-27] MEDS: HEPARIN SOD 5,000 UNIT/0.5 ML VIAL SQ SCH (21:13)
[2024-12-27] MEDS: LACTULOSE SYRUP 20 GM/30 ML UDC PO SCH (21:15)
[2024-12-27] MEDS: MAGNESIUM CHLORIDE W/CALCIUM 64MG DELAYED REL TAB PO SCH (21:16)
[2024-12-27] MEDS: INSULIN ASPART PER UNIT CHARGE SC SCH (21:16)
[2024-12-27] MEDS: rifAXIMin 550 MG TABLET PO SCH (21:17)
--- NOTE | 2024-12-27 22:16 | Electrocardiogram Report ---
Test Reason : Blood Pressure : */* mmHG Vent. Rate : 110 BPM Atrial Rate : 110 BPM P-R Int : 182 ms QRS Dur : 78 ms QT Int : 346 ms P-R-T Axes : 48 3 57 degrees QTcB Int : 468 ms Sinus tachycardia Septal infarct (cited on or before 09-Jun-2022) Abnormal ECG When compared with ECG of 16-Dec-2024 10:25, No significant change was found Confirmed by Ahsan Stein ([id number]) on 12/27/2024 10:16:03 PM Referred By: REFERRED SELF Confirmed By: Ahsan Stein
--- NOTE | 2024-12-27 22:25 | Magnetic Resonance Report ---
Exam(s): MRI HEAD Without Contrast EXAM: MR Head Without Intravenous Contrast CLINICAL HISTORY: Reason for exam: Generalized weakness. TECHNIQUE: Magnetic resonance images of the head/brain without intravenous contrast in multiple planes. COMPARISON: Prior head CT from December 27, 2044. FINDINGS: Brain: There is a remote ischemic injury of the left capsule. Moderate nonspecific white matter changes. No mass. No hemorrhage. No acute infarct. The flow voids at the base the brain are intact. Ventricles: Unremarkable. No ventriculomegaly. Bones/joints: Unremarkable. No acute fracture. Sinuses: Unremarkable as visualized. No acute sinusitis. Mastoid air cells: There is a moderate amount of fluid in the right mastoid air cells.. No mastoid effusion. Orbits: Bilateral lens replacement with left retinal banding. IMPRESSION: No evidence of acute intracranial pathology. Electronically signed by: Roseann Herrera MD 12/27/24 22:24 PM
[2024-12-27 23:10] LABS: Appearance Urine Cloudy (Clear); Bacteria Urine Automated 1+ (None Seen); Bilirubin Urine Negative (Negative); Blood Urine 1+ (Negative); Color Urine Yellow; Epithelial Cell Urine Auto 0-2 /hpf (0-2); Glucose Urine UA Negative (Negative); Ketones Urine Negative (Negative); Leukocyte Esterase Urine 3+ (Negative); Nitrite Urine Negative (Negative); Protein Urine Trace (Negative); Specific Gravity Urine 1.012 (1.000-1.030); Urobilinogen Urine Negative (Negative); WBC Urine Automated >50 /hpf (0-5); pH Urine 5.5 (4.5-7.5)
[2024-12-28] MEDS: SODIUM CHLORIDE 0.9% 500 ML IV ONE ×2 (03:06→11:55)
[2024-12-28] MEDS: cefTRIAXone SODIUM 2,000 MG/50 ML BAG IV SCH (03:58)
[2024-12-28 07:46] LABS: Hematocrit (blood only) 34.5 % (42.0-52.0); Hemoglobin 11.8 g/dl (14.0-18.0); Mean Corpuscular Hemoglobin 33.4 pg (25.0-34.0); Mean Corpuscular Hgb Conc 34.2 g/dL (32.0-36.0); Mean Corpuscular Volume 97.7 fL (80.0-100.0); Mean Platelet Volume 11.1 fL (9.4-12.4); Platelet Count 97 K/uL (130-400); RDW Coefficient of Variation 13.9 % (11.5-14.5); RDW Standard Deviation 50.2 fL (36.4-46.3); Red Blood Count 3.53 M/uL (4.70-6.10); White Blood Count 18.55 K/ul (4.8-10.8)
[2024-12-28 08:02] LABS: Albumin Globulin Ratio 0.6 (0.9-2); BUN Creatinine Ratio 20.3 (10-20); Bilirubin,Total 3.5 mg/dl (0.2-1.0); Calcium 9.6 mg/dl (8.6-10.3); Creatinine Clr Calc Pharmacy 33.8 ml/min; Globulin 4.9 gm/dl (2.5-4.0); Magnesium 1.6 mg/dl (1.7-2.4); Potassium 4.6 mmol/L (3.5-5.1); Total Protein 7.9 gm/dl (6.0-8.3)
[2024-12-28] MEDS: THIAMINE HCL 100 MG TAB PO SCH (08:23)
[2024-12-28] MEDS: MIDODRINE HCL 2.5 MG TAB PO SCH (08:24)
[2024-12-28] MEDS: PANTOprazole 40 MG TAB PO SCH (08:24)
[2024-12-28] MEDS: FOLIC ACID 1 MG TAB PO SCH (08:24)
[2024-12-28] MEDS: ADVANCED PROBIOTIC 625 MG CAPSULE PO SCH (08:24)
[2024-12-28] MEDS: ASPIRIN 81 MG ECTAB PO SCH (08:24)
--- NOTE | 2024-12-28 09:55 | Hospitalist Progress Note ---
Date of Service December 28, 2024 Assessment & Plan (1) Metabolic encephalopathy: (2) Sepsis: (3) Complicated UTI (urinary tract infection): (4) Alcoholic cirrhosis of liver: (5) Acute kidney injury superimposed on stage 3a chronic kidney disease: (6) Type 2 diabetes mellitus: (7) Hypomagnesemia: Plan "Guido" is a 59 yr old M who has a significant PMH of T2DM, HTN, Alcoholic Liver Cirrhosis, Thrombocytopenia, hx of hepatic encephalopathy, legally blind and hx of anoxic brain injury who presented to ED after his HH noticed alteration in his mental status. Pt reports not taking his medications for 24 hrs. He presented due to change in mental status. Ammonia level normal. On Admission pt was tachycardic, CT head w/o acute abnormality in regards to his confusion, CEE with cr 2.07, UA concerning for infection in setting of indwelling dumont cath. Recent hospitalization 12/16/2024-12/18/2024 with acute hepatic encephalopathy and CEE due to obstructive uropathy in the setting of underlying BPH. Presented with similar symptoms at that time. Was discharged home with HH services through [facility]. Dumont catheter was in place at time of discharge. Initial concern on admission was possible UTI, CEE and hepatic encephalopathy #Metabolic Encephalopathy #Hepatic Cirrhosis 2/2 alcoholism pt admitted to med tele NH3 normal on presentation, pt reports noncompliance with meds continue lactulose, xifaxan suspect encephalopathy likely multifactorial in setting of cirrhosis, Com plicated UTI hold Torsemide for now AST 68, ALT 65, increase in Total bili to 3.5, will monitor #CEE baseline cr 1.2-1.7 2.07 on admission, 2.02 today remove dumont for TOV, monitor for retention IVF x 1 L gentle, avoid nephrotoxic agents #Sepsis, not present on admission #Complicated UTI in setting of indwelling dumont, POA pt tachycardic, today with leukocytosis suspected UTI, await urine/blood culture continue IV rocephin, TOV ordered #T2DM a1c 10.1 425 Insulin per protocol, appreciate glycemic pharmacy management #Hypomagnesemia was 1.3, now 1.6, will give additional supplement today DVT Prophylaxis: SQ Heparin Code Status: FULL CODE PCP: Luly Guajardo PA-C Disposition: Admit to med/telemetry, not yet medically stable for discharge, cbc, cmp, mag in a.m., PT/OT consults ordered Patient seen in collaboration with Dr. Jeffers. Please see addendum. Spoke to pt Sister Modesta, and provided and update. She agrees with above. She does report there is concern for pt living alone. She reports she has reached out to O for additional assistance. She states he isn't compliant with his meds despite her filing his pill boxes. She is retired, but her other sisters are not. She is disabled with MS so she can only get into see him once daily. She wishes for daily updates. I spent a total of 46 minutes coordinating, documenting, and providing care for this patient excluding time spent in the performance of separately billed services or time spent by another provider/QHP. This included personally reviewing all current laboratories and imaging studies, medical reconciliation, outpatient chart review and discussion with specialists. Admission and Anticipated Discharge Date Admission Date: December 27, 2024 Supervising Physician Co-Signing Physician Notes I have reviewed the advanced practitioner's documentation, and I agree with, and take responsibility for the plan of care I spent a total of 20 minutes coordinating, documenting, and providing care for this patient excluding time spent in the performance of separately billed services. All of the aforementioned completed while collaborating with the assigned advanced practitioner for a full treatment plan Subjective Pt was seen and examined in room 278-1. He offers no acute complaints other than he wants chocolate milk. Denies pain, f/c/s, chest pain, sob, n/v. He reports he has a catheter. He states he feels much better then when he came in yesterday. He reports 6-7 BM since admission. Review of Systems Review of Systems: All systems reviewed & are unremarkable except as noted in HPI & below (possibly unreliable given cognition) Physical Exam Physical Exam: Gen: WD/WN, NAD, A&O x2, didn't know date/month Mother would benefit at all from like even like it a little fluid are now look overtly overloaded on exam with him being tachycardic HEENT: Normocephalic, atraumatic, conjunctivae moist, sclerae anicteric, mucous membranes moist. Lung: Clear to Auscultation bilaterally, no wheezes/rales/rhonchi Heart: tachycardic rate, regular rhythm, no murmurs, rubs, or gallops Abdomen: Soft, NT, ND +BS x 4 Extremities: No edema Skin: Warm, no rash, negative turgor. : dumont cath draining elinor urine Results & Data Results & Data Vital Signs (Past 12 Hours) Vital Signs Temp Pulse Pulse Resp BP Pulse Ox O2 Del Method 12/28/24 09:00 129 H 12/28/24 07:39 37.5 C 120 H 18 101/69 97 Room Air 12/28/24 07:17 Room Air 12/28/24 03:41 36.8 C 96 H 20 99/65 L 99 Room Air 12/28/24 02:29 36.7 C 124 H 12 103/67 99 Room Air 12/27/24 22:40 117 H Laboratory Results I have independently reviewed and interpreted patient's cbc, bmp, mag, Medications Administered Current Inpatient Medications Acetaminophen (Acetaminophen 325 Mg Tab) 650 mg PO Q4H PRN PRN Reason: Pain or Fever Stop: 01/26/25 20:57 Aspirin (Aspirin 81 Mg Ectab) 81 mg PO DAILY [facility]IVIA Stop: 01/27/25 08:59 Last Admin: 12/28/24 08:24 Dose: 81 mg Dextrose (Dextrose 50% 50 Ml Syringe) 25 - 50 ml IV UD PRN; Protocol PRN Reason: Hypoglycemia Protocol Stop: 01/26/25 19:24 Folic Acid (Folic Acid 1 Mg Tab) 1 mg PO QAM OLIVIA Stop: 01/27/25 08:59 Last Admin: 12/28/24 08:24 Dose: 1 mg Glucagon (Glucagon For Inj 1 Mg Vial) 1 mg SQ UD PRN; Protocol PRN Reason: Hypoglycemia Protocol Stop: 01/26/25 19:24 Glucose (Glucose 40% Gel 15 Gm Tube) 15 - 30 gm PO UD PRN; Protocol PRN Reason: Hypoglycemia Protocol Stop: 01/26/25 19:24 Glucose (Glucose 10 Tab/Tube) 4 - 8 tab PO UD PRN; Protocol PRN Reason: Hypoglycemia Protocol Stop: 01/26/25 19:24 Heparin Sodium (Porcine) (Heparin Sod 5,000 Unit/0.5 Ml Vial) 5,000 units SQ Q12 [facility]IA Stop: 01/26/25 20:59 Last Admin: 12/28/24 08:45 Dose: 5,000 units Ceftriaxone Sodium (Rocephin) 2,000 mg in 50 mls @ 100 mls/hr IV Q24H [facility] Stop: 01/02/25 02:59 Last Infusion: 12/28/24 04:38 Dose: Infused Sodium Chloride (Nss) 1,000 mls @ 100 mls/hr IV .Q10H [facility] Stop: 12/31/24 10:14 Insulin Aspart (Insulin Aspart Per Unit Charge) 0 units SC ACHS [facility] Stop: 01/26/25 20:59 Last Admin: 12/28/24 08:45 Dose: 6 units Insulin Glargine (Lantus Per Unit Charge) 0 units SC BID [facility]; Protocol Stop: 01/27/25 09:29 Lactobacillus Acidophilus (Advanced Probiotic 625 Mg Capsule) 625 mg PO DAILY [facility] Stop: 01/27/25 08:59 Last Admin: 12/28/24 08:24 Dose: 625 mg Lactulose (Lactulose Syrup 20 Gm/30 Ml Udc) 20 gm PO TID [facility] Stop: 01/26/25 20:59 Last Admin: 12/28/24 08:25 Dose: Not Given Magnesium Chloride (Magnesium Chloride W/Calcium 64mg Delayed Rel Tab) 128 mg PO BID [facility] Stop: 01/26/25 20:59 Last Admin: 12/28/24 08:23 Dose: 128 mg Magnesium Hydroxide (Magnesium Hydroxide Susp 30 Ml Udc) 30 ml PO Q12H PRN PRN Reason: Constipation Stop: 01/26/25 20:57 Midodrine (Midodrine Hcl 2.5 Mg Tab) 2.5 mg PO TID@0800,1200,1700 [facility] Stop: 01/27/25 07:59 Last Admin: 12/28/24 08:24 Dose: 2.5 mg Miscellaneous (Carbohydrates For Hypoglycemia ) 15 - 30 gm PO UD PRN PRN Reason: Hypoglycemia Protocol Stop: 01/26/25 19:24 Miscellaneous Information (Pharmacy Glycemic Mgmt Consult) 1 each N/A UD PRN PRN Reason: Consult Stop: 01/26/25 19:24 Ondansetron HCl (Ondansetron Inj 2 Mg/Ml 2 Ml Vial) 4 mg IV Q6H PRN PRN Reason: Nausea Stop: 01/26/25 20:57 Pantoprazole Sodium (Pantoprazole 40 Mg Tab) 40 mg PO DAILY [facility] Stop: 01/27/25 08:59 Last Admin: 12/28/24 08:24 Dose: 40 mg Polyethylene Glycol (Polyethylene (Miralax) 17 Gm Pack) 17 gm PO DAILY PRN PRN Reason: Constipation Stop: 01/26/25 20:57 Rifaximin (Rifaximin 550 Mg Tablet) 550 mg PO BID [facility] Stop: 01/26/25 20:59 Last Admin: 12/28/24 08:23 Dose: 550 mg Thiamine HCl (Thiamine Hcl 100 Mg Tab) 100 mg PO DAILY [facility] Stop: 01/27/25 08:59 Last Admin: 12/28/24 08:23 Dose: 100 mg (2) Sepsis Acute renal failure type: unspecified Sepsis acute organ dysfunction status: with acute organ dysfunction Sepsis type: sepsis due to unspecified organism Severe sepsis acute organ dysfunction type: acute renal failure Severe sepsis shock status: without septic shock Qualified Code(s): A41.9 - Sepsis, unspecified organism; R65.20 - Severe sepsis without septic shock; N17.9 - Acute kidney failure, unspecified (4) Alcoholic cirrhosis of liver Ascites presence: unspecified Qualified Code(s): K70.30 - Alcoholic cirrhosis of liver without ascites (6) Type 2 diabetes mellitus Diabetes mellitus complication status: with other specified complication Diabetes mellitus prison insulin use: with prison use Qualified Code(s): E11.69 - Type 2 diabetes mellitus with other specified complication; Z79.4 - terminal operations manager (current) use of insulin
[2024-12-28] MEDS: LANTUS PER UNIT CHARGE SC SCH (10:19)
[2024-12-28] MEDS: SODIUM CHLORIDE 0.9% 1,000 ML IV SCH (11:04)
[2024-12-28] MEDS: LANTUS PER UNIT CHARGE SC ONE (12:49)
[2024-12-28] MEDS: AMPICILLIN/SULBACTAM SOD 3,000 MG/100 ML BAG IV SCH (16:26)
--- NOTE | 2024-12-29 07:24 | Hospitalist Progress Note ---
Date of Service December 29, 2024 Assessment & Plan (1) Metabolic encephalopathy: (2) Sepsis: (3) Complicated UTI (urinary tract infection): (4) Alcoholic cirrhosis of liver: (5) Acute kidney injury superimposed on stage 3a chronic kidney disease: (6) Type 2 diabetes mellitus: (7) Hypomagnesemia: Plan "Guido" is a 59 yr old M who has a significant PMH of T2DM, HTN, Alcoholic Liver Cirrhosis, Thrombocytopenia, hx of hepatic encephalopathy, legally blind and hx of anoxic brain injury who presented to ED after his HH noticed alteration in his mental status. Pt reports not taking his medications for 24 hrs. He presented due to change in mental status. Ammonia level normal. On Admission pt was tachycardic, CT head w/o acute abnormality in regards to his confusion, CEE with cr 2.07, UA concerning for infection in setting of indwelling dumont cath. Recent hospitalization 12/16/2024-12/18/2024 with acute hepatic encephalopathy and CEE due to obstructive uropathy in the setting of underlying BPH. Presented with similar symptoms at that time. Was discharged home with HH services through [facility]. Dumont catheter was in place at time of discharge. Initial concern on admission was possible UTI, CEE and hepatic encephalopathy #Metabolic Encephalopathy #Hepatic Cirrhosis 2/2 alcoholism pt admitted to med tele NH3 normal on presentation, pt reports noncompliance with meds and sister Modesta confirms this continue lactulose, xifaxan suspect encephalopathy likely multifactorial in setting of cirrhosis, Complicated UTI Pt has had adequate BMS, 4 yesterday, with improvement in his mentation lucidity Renal fxn improved, continue to hold Torsemide today as BP still soft and consider resuming torsemide tomorrow LFTS stable cbc, bmp, lft, mag in a.m #CEE/CKD 3 baseline cr 1.2-1.7 2.07 on admission, 2.02 , now down to 1.5 s/p IVF Dumont removed for TOV and he has been urinating w/o difficulty/retention avoid nephrotoxic agents #Sepsis, not present on admission #Complicated UTI in setting of indwelling dumont, POA 12/28 pt tachycardic, leukocytosis climbed to 18k and BPS soft Leukocytosis improving today, though still mildly tachycardic suspected UTI, urine culture > 100k Acinetobacter baumannii/nosoco IV antibiotics transitioned to IV unasyn, based on culture consider d/c on course of augmentin #T2DM a1c 10.1 12/13 Insulin per protocol, appreciate glycemic pharmacy management #Hypomagnesemia mag still low, 1.4, will give additional replacement today change daily mag supplement to magnesium oxide 400mg bid DVT Prophylaxis: SQ Heparin Code Status: FULL CODE PCP: Luly Guajardo PA-C Disposition: Admit to med/telemetry, clinically improving, cbc, cmp, mag in a.m., PT recommending SNF, pt agreeable, CM will arrange tomorrow, suspect d/c in the next couple days when able to go to rehab. Patient seen in collaboration with Dr. Jeffers. Please see addendum. Spoke to pt Sister Modesta, and provided and update. She agrees with above. Discussed PT findings recommended SNF. Discussed with her CM will be in touch with patient to provide recommendations and go through insurance. She wishes for daily updates. I spent a total of 51 minutes coordinating, documenting, and providing care for this patient excluding time spent in the performance of separately billed services or time spent by another provider/QHP. This included personally reviewing all current laboratories and imaging studies, medical reconciliation, outpatient chart review and discussion with specialists. Admission and Anticipated Discharge Date Admission Date: December 27, 2024 Supervising Physician Co-Signing Physician Notes I have reviewed the advanced practitioner's documentation, and I agree with, and take responsibility for the plan of care Subjective Pt was seen and examined in room 278-1. He is feeling better today and asking when he will go home. We discussed compliance with his meds when he goes home. He reports 4 BMs yesterday. He denies f/c/s, chest pain, sob, n/v. He is tolerating diet. Discussed with RN who confirmed his BMS and that he has not been retaining urine per bladder scans. Review of Systems Review of Systems: All systems reviewed & are unremarkable except as noted in HPI & below Physical Exam Physical Exam: Gen: WD/WN, NAD, A&O x3 basics HEENT: Normocephalic, atraumatic, conjunctivae moist, sclerae anicteric, mucous membranes moist. Lung: Clear to Auscultation bilaterally, no wheezes/rales/rhonchi Heart: tachycardic rate, regular rhythm, no murmurs, rubs, or gallops Abdomen: Soft, NT, ND +BS x 4 Extremities: No edema Skin: Warm, no rash, negative turgor. Results & Data Results & Data Vital Signs (Past 12 Hours) Vital Signs Temp Pulse Pulse Resp BP Pulse Ox O2 Del Method 12/29/24 03:45 37.2 C 102 H 20 97/62 L 96 Room Air 12/29/24 00:11 36.6 C 102 H 20 93/60 L 98 Room Air 12/28/24 21:45 109 H Laboratory Results I have independently reviewed and interpreted patient's CBC,CMP, mag Short CBC 12/29/24 Range/Units 07:21 WBC 12.22 H (4.8-10.8) K/ul Hgb 10.4 L (14.0-18.0) g/dl Hct 30.8 L (42.0-52.0) % Plt Count 65 L (130-400) K/uL BMP 12/29/24 07:21 Sodium 130 L Potassium 4.3 Chloride 102 Carbon Dioxide 22 BUN 33 H Creatinine 1.53 H D Glucose 126 H Calcium 8.6 Liver Function 12/29/24 Range/Units 07:21 Total Bilirubin 2.4 H (0.2-1.0) mg/dl AST 47 H (13-39) U/L ALT 45 (7-52) U/L Alkaline Phosphatase 153 H (34-104) U/L Albumin 2.5 L (3.4-5.0) gm/dl Medications Administered Current Inpatient Medications Acetaminophen (Acetaminophen 325 Mg Tab) 650 mg PO Q4H PRN PRN Reason: Pain or Fever Stop: 01/26/25 20:57 Aspirin (Aspirin 81 Mg Ectab) 81 mg PO DAILY [facility] Stop: 01/27/25 08:59 Last Admin: 12/29/24 07:57 Dose: 81 mg Dextrose (Dextrose 50% 50 Ml Syringe) 25 - 50 ml IV UD PRN; Protocol PRN Reason: Hypoglycemia Protocol Stop: 01/26/25 19:24 Folic Acid (Folic Acid 1 Mg Tab) 1 mg PO QAM [facility] Stop: 01/27/25 08:59 Last Admin: 12/29/24 07:57 Dose: 1 mg Glucagon (Glucagon For Inj 1 Mg Vial) 1 mg SQ UD PRN; Protocol PRN Reason: Hypoglycemia Protocol Stop: 01/26/25 19:24 Glucose (Glucose 40% Gel 15 Gm Tube) 15 - 30 gm PO UD PRN; Protocol PRN Reason: Hypoglycemia Protocol Stop: 01/26/25 19:24 Glucose (Glucose 10 Tab/Tube) 4 - 8 tab PO UD PRN; Protocol PRN Reason: Hypoglycemia Protocol Stop: 01/26/25 19:24 Heparin Sodium (Porcine) (Heparin Sod 5,000 Unit/0.5 Ml Vial) 5,000 units SQ Q12 [facility] Stop: 01/26/25 20:59 Last Admin: 12/29/24 08:02 Dose: 5,000 units Ampicillin Sodium/Sulbactam Sodium (Unasyn) 3,000 mg in 100 mls @ 200 mls/hr IV Q4 [facility] Stop: 01/07/25 15:59 Last Infusion: 12/29/24 09:12 Dose: Infused Magnesium Sulfate/Dextrose (Magnesium Sulfate / D5w) 1 gm in 100 mls @ 50 mls/hr IV Q2H [facility] Stop: 12/29/24 17:29 Insulin Aspart (Insulin Aspart Per Unit Charge) 0 units SC ACHS [facility] Stop: 01/26/25 20:59 Last Admin: 12/29/24 09:32 Dose: 4 units Insulin Glargine (Lantus Per Unit Charge) 0 units SC BID [facility]; Protocol Stop: 01/27/25 09:29 Last Admin: 12/29/24 08:10 Dose: Not Given Lactobacillus Acidophilus (Advanced Probiotic 625 Mg Capsule) 625 mg PO DAILY [facility] Stop: 01/27/25 08:59 Last Admin: 12/29/24 07:56 Dose: 625 mg Lactulose (Lactulose Syrup 20 Gm/30 Ml Udc) 20 gm PO TID [facility] Stop: 01/26/25 20:59 Last Admin: 12/29/24 07:58 Dose: 20 gm Magnesium Chloride (Magnesium Chloride W/Calcium 64mg Delayed Rel Tab) 128 mg PO BID [facility] Stop: 01/26/25 20:59 Last Admin: 12/29/24 07:56 Dose: 128 mg Magnesium Hydroxide (Magnesium Hydroxide Susp 30 Ml Udc) 30 ml PO Q12H PRN PRN Reason: Constipation Stop: 01/26/25 20:57 Midodrine (Midodrine Hcl 2.5 Mg Tab) 2.5 mg PO TID@0800,1200,1700 [facility] Stop: 01/27/25 07:59 Last Admin: 12/29/24 07:56 Dose: 2.5 mg Miscellaneous (Carbohydrates For Hypoglycemia ) 15 - 30 gm PO UD PRN PRN Reason: Hypoglycemia Protocol Stop: 01/26/25 19:24 Miscellaneous Information (Pharmacy Glycemic Mgmt Consult) 1 each N/A UD PRN PRN Reason: Consult Stop: 01/26/25 19:24 Ondansetron HCl (Ondansetron Inj 2 Mg/Ml 2 Ml Vial) 4 mg IV Q6H PRN PRN Reason: Nausea Stop: 01/26/25 20:57 Pantoprazole Sodium (Pantoprazole 40 Mg Tab) 40 mg PO DAILY [facility] Stop: 01/27/25 08:59 Last Admin: 12/29/24 07:57 Dose: 40 mg Polyethylene Glycol (Polyethylene (Miralax) 17 Gm Pack) 17 gm PO DAILY PRN PRN Reason: Constipation Stop: 01/26/25 20:57 Rifaximin (Rifaximin 550 Mg Tablet) 550 mg PO BID [facility] Stop: 01/26/25 20:59 Last Admin: 12/29/24 08:10 Dose: 550 mg Thiamine HCl (Thiamine Hcl 100 Mg Tab) 100 mg PO DAILY [facility] Stop: 01/27/25 08:59 Last Admin: 12/29/24 07:57 Dose: 100 mg (2) Sepsis Acute renal failure type: unspecified Sepsis acute organ dysfunction status: with acute organ dysfunction Sepsis type: sepsis due to unspecified organism Severe sepsis acute organ dysfunction type: acute renal failure Severe sepsis shock status: without septic shock Qualified Code(s): A41.9 - Sepsis, unspecified organism; R65.20 - Severe sepsis without septic shock; N17.9 - Acute kidney failure, unspecified (4) Alcoholic cirrhosis of liver Ascites presence: unspecified Qualified Code(s): K70.30 - Alcoholic cirrhosis of liver without ascites (6) Type 2 diabetes mellitus Diabetes mellitus complication status: with other specified complication Diabetes mellitus fci insulin use: with fci use Qualified Code(s): E11.69 - Type 2 diabetes mellitus with other specified complication; Z79.4 - skilled nursing (current) use of insulin
[2024-12-29 08:09] LABS: Basophils # (auto) 0.09 K/uL (0.00-0.20); Basophils % (auto) 0.7 %; Eosinophils # (auto) 0.05 K/uL (0.00-0.50); Eosinophils % (auto) 0.4 %; Hematocrit (blood only) 30.8 % (42.0-52.0); Hemoglobin 10.4 g/dl (14.0-18.0); Immature Granulocytes # (auto) 0.08 K/uL (0.01-0.20); Immature Granulocytes % (auto) 0.7 %; Lymphocytes # (auto) 1.15 K/uL (1.20-3.40); Lymphocytes % (auto) 9.4 %; Mean Corpuscular Hemoglobin 32.4 pg (25.0-34.0); Mean Corpuscular Hgb Conc 33.8 g/dL (32.0-36.0); Mean Platelet Volume 11.7 fL (9.4-12.4); Monocytes # (auto) 0.95 K/uL (0.11-0.59); Monocytes % (auto) 7.8 %; Platelet Count 65 K/uL (130-400); RDW Coefficient of Variation 13.8 % (11.5-14.5); RDW Standard Deviation 48.5 fL (36.4-46.3); Red Blood Count 3.21 M/uL (4.70-6.10); White Blood Count 12.22 K/ul (4.8-10.8)
[2024-12-29 08:29] LABS: Albumin Globulin Ratio 0.6 (0.9-2); Albumin Level 2.5 gm/dl (3.4-5.0); BUN Creatinine Ratio 21.6 (10-20); Bilirubin,Total 2.4 mg/dl (0.2-1.0); Calcium 8.6 mg/dl (8.6-10.3); Creatinine Clr Calc Pharmacy 44.7 ml/min; Globulin 3.9 gm/dl (2.5-4.0); Magnesium 1.4 mg/dl (1.7-2.4); Potassium 4.3 mmol/L (3.5-5.1); Total Protein 6.4 gm/dl (6.0-8.3)
[2024-12-29] MEDS: MAGNESIUM SULFATE / D5W 1 GM/100 ML BAG IV SCH (11:29)
[2024-12-29] MEDS: LANTUS PER UNIT CHARGE SC SCH (13:27)
--- NOTE | 2024-12-29 13:46 | Pharmacy Report ---
Pharmacy Glycemic Short Note 2 - Date of Service December 29, 2024 - Glycemic Short BSG Results (Last 24 hours): 12/28/24 12/28/24 12/29/24 16:51 20:20 07:21 Glucose 126 H POC Glucose 147 H 116 H 12/29/24 12/29/24 08:00 12:02 Glucose POC Glucose 119 H 193 H OUTPATIENT ANTIDIABETIC REGIMEN: * Lantus 10 units SC BID (compliance not confirmed) ASSESSMENT: * Major is a 59 yo M with PMHx significant for alcoholic cirrhosis, thrombocytopenia, DM type II, HTN, CKD stage IIIa, history of anoxic brain injury, bilateral hearing loss and congenital cataracts of both eyes with resulting legal blindness who presented to the ED due to altered mental status and weakness. * During November 2024 admission, his Lantus dose was decreased to 10 units BID. Patient started on basal dose per BSG scale this admission. He tolerated a total of 10 units yesterday with fasting BSG of 119 mg/dL today. Will transition to Lantus 10 units once daily. * Continue Novolog per weight based dosing. PLAN FOR INPATIENT GLYCEMIC CONTROL: * Basal insulin * Lantus 10 units SQ daily * Bolus insulin * NovoLog per scale ACHS or Q6hrs while NPO * Goal Range: Low 110 mg/dL - High 140 mg/dL * Correction Factor: 25 mg/dL/unit * Nutritional / Prandial insulin per carb ratio of 1 unit per 9 grams CHO consumed
[2024-12-29] MEDS: METOPROLOL TARTRATE 25 MG TAB PO STA (22:11)
[2024-12-29] MEDS: MAGNESIUM OXIDE 400 MG TAB PO SCH (22:17)
[2024-12-30 06:54] LABS: Hematocrit (blood only) 29.5 % (42.0-52.0); Mean Corpuscular Hemoglobin 32.7 pg (25.0-34.0); Mean Corpuscular Hgb Conc 33.9 g/dL (32.0-36.0); Mean Corpuscular Volume 96.4 fL (80.0-100.0); Mean Platelet Volume 11.1 fL (9.4-12.4); Platelet Count 71 K/uL (130-400); RDW Coefficient of Variation 13.8 % (11.5-14.5); RDW Standard Deviation 48.7 fL (36.4-46.3); Red Blood Count 3.06 M/uL (4.70-6.10); White Blood Count 8.11 K/ul (4.8-10.8)
[2024-12-30 07:19] LABS: Albumin Level 2.3 gm/dl (3.4-5.0); BUN Creatinine Ratio 18.2 (10-20); Bilirubin Direct 0.8 mg/dl (0-0.2); Bilirubin,Total 1.5 mg/dl (0.2-1.0); Calcium 8.4 mg/dl (8.6-10.3); Creatinine Clr Calc Pharmacy 46.2 ml/min; Magnesium 1.8 mg/dl (1.7-2.4); Potassium 4.2 mmol/L (3.5-5.1); Total Protein 6.3 gm/dl (6.0-8.3)
[2024-12-30 07:24] LABS: Troponin I High Sensitivity 17.3 pg/ml (0-20)
--- NOTE | 2024-12-30 08:24 | Hospitalist Progress Note ---
Date of Service December 30, 2024 Assessment & Plan (1) Metabolic encephalopathy: (2) Sepsis: (3) Complicated UTI (urinary tract infection): (4) Alcoholic cirrhosis of liver: (5) Acute kidney injury superimposed on stage 3a chronic kidney disease: (6) Type 2 diabetes mellitus: (7) Hypomagnesemia: Plan "Guido" is a 59 yr old M who has a significant PMH of T2DM, HTN, Alcoholic Liver Cirrhosis, Thrombocytopenia, hx of hepatic encephalopathy, legally blind and hx of anoxic brain injury who presented to ED after his HH noticed alteration in his mental status. Pt reports not taking his medications for 24 hrs. He presented due to change in mental status. Ammonia level normal. On Admission pt was tachycardic, CT head w/o acute abnormality in regards to his confusion, CEE with cr 2.07, UA concerning for infection in setting of indwelling dumont cath. Recent hospitalization 12/16/2024-12/18/2024 with acute hepatic encephalopathy and CEE due to obstructive uropathy in the setting of underlying BPH. Presented with similar symptoms at that time. Was discharged home with HH services through [facility]. Dumont catheter was in place at time of discharge. Metabolic Encephalopathy Hepatic Cirrhosis 2/2 alcoholism pt admitted to med tele [facility] normal on presentation, pt reports noncompliance with meds and sister Modesta confirms this Continue lactulose, Xifaxan Suspect encephalopathy likely multifactorial in setting of cirrhosis, Complicated UTI -> mentation improving, patient having adequate 4 BMs daily Renal fxn improved, continue to hold Torsemide today as BP still soft, consider resuming torsemide tomorrow LFTS stable CBC, BMP, LFTs in AM Episode of SVT Noted to develop SVT overnight with HR in 170s, did not initially respond to vagal maneuver per nursing note - converted back to NSR by time of arrival to PCU Patient has remained in NSR today with HR 80-90s Started on Lopressor 12.5mg BID Routine cardiology consult CEE on CKD 3 -> resolved Baseline cr 1.2-1.7 2.07 on admission->2.02 -> 1.48 Dumont removed for TOV and he has been urinating w/o difficulty/retention Avoid nephrotoxic agents Sepsis, not present on admission Complicated UTI in setting of indwelling dumont, POA Suspected UTI, urine culture > 100k Acinetobacter baumannii/nosoco IV antibiotics transitioned to IV Unasyn, based on culture consider d/c on course of Augmentin DM II A1c 10.1 12/13 Insulin per protocol, appreciate glycemic pharmacy management Hypomagnesemia Magnesum wnl today Changed daily mag supplement to magnesium oxide 400mg bid Monitor DVT Prophylaxis: SQ Heparin Code Status: FULL CODE PCP: Luly Guajardo PA-C Disposition: Admitted to med/telemetry, clinically improving, cbc, cmp, mag in a.m., PT recommending SNF, pt agreeable Sister Modesta ([phone]) updated yesterday and agrees to SNF placement. Appreciate CM assistance Patient seen in collaboration with Dr. Jeffers. Please see addendum. I spent a total of 50 minutes coordinating, documenting, and providing care for this patient excluding time spent in the performance of separately billed services or time spent by another provider/QHP. Admission and Anticipated Discharge Date Admission Date: December 27, 2024 Supervising Physician Co-Signing Physician Notes I have reviewed the advanced practitioner's documentation, and I agree with, and take responsibility for the plan of care Subjective Patient moved to [facility] overnight due to SVT noted on monitor overnight Remembers episode of SVT and denies any lightheadedness, CP or palpitations since then. Continue to have 4 BMs daily, mentation at baseline He denies f/c/s, chest pain, sob, n/v. Tolerating diet. Review of Systems Review of Systems: At least ten systems reviewed and negative, except as noted in the HPI. Physical Exam Physical Exam: Gen: WD/WN, NAD, resting in bed comfortably, A&Ox3 HEENT: +Blind, Normocephalic, atraumatic, conjunctivae moist, sclerae anicteric, mucous membranes moist Lung: Clear to Auscultation bilaterally Heart: Regular rate, regular rhythm Abdomen: Soft, NT, ND +BS x 4 Extremities: no edema Skin: Warm, no rash Results & Data Results & Data Vital Signs (Past 12 Hours) Vital Signs Temp Pulse Pulse Resp BP BP Pulse Ox 12/30/24 08:17 36.5 C 85 18 94/61 L 97 12/30/24 04:33 36.7 C 87 18 99/65 L 98 12/29/24 22:23 12/29/24 22:10 36.9 C 115 H 20 102/66 98 12/29/24 22:03 122 H O2 Del Method 12/30/24 08:17 Room Air 12/30/24 04:33 Room Air 12/29/24 22:23 Room Air 12/29/24 22:10 Room Air 12/29/24 22:03 Laboratory Results Short CBC 12/30/24 Range/Units 06:23 WBC 8.11 (4.8-10.8) K/ul Hgb 10.0 L (14.0-18.0) g/dl Hct 29.5 L (42.0-52.0) % Plt Count 71 L (130-400) K/uL BMP 12/30/24 06:23 Sodium 130 L Potassium 4.2 Chloride 103 Carbon Dioxide 23 BUN 27 H Creatinine 1.48 H Glucose 150 H Calcium 8.4 L Liver Function 12/30/24 Range/Units 06:23 Total Bilirubin 1.5 H (0.2-1.0) mg/dl Direct Bilirubin 0.8 H (0-0.2) mg/dl AST 40 H (13-39) U/L ALT 40 (7-52) U/L Alkaline Phosphatase 147 H (34-104) U/L Albumin 2.3 L (3.4-5.0) gm/dl Diagnostic Findings Head CT 12/27/24 15:20 Technique: Axial computed tomography images were obtained of the brain without intravenous contrast. Comparison is made to the prior CT dated 12/16/2024 Findings: There is unchanged cerebral atrophy, within expected limits for the patient's age. Areas of decreased attenuation are seen within the periventricular white matter, likely representing chronic small vessel ischemic disease. 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 There is no definite sign of acute infarction. No intracranial hemorrhage is evident. No definite mass lesion is seen on this noncontrast examination. There is no midline shift or other form of herniation. No hydrocephalus is seen. No fracture is identified. The orbits and the visualized paranasal sinuses appear unremarkable. There is partial opacification of the mastoid air cells bilaterally Impression: 1. Unchanged cerebral atrophy, old infarct, and chronic small vessel ischemic disease 2. Partial opacification of the mastoid air cells, which may be due to inflammatory mastoiditis ACT 112: Positive. There are findings on this exam that require communication between the performing entity and the patient following Patient Test Result Information Act ([place] ACT 112) guidelines. Electronically signed by Demarco Bolton 12-27-2024 4:38 PM Brain MRI 12/27/24 18:43 Exam(s): MRI HEAD Without Contrast EXAM: MR Head Without Intravenous Contrast CLINICAL HISTORY: Reason for exam: Generalized weakness. TECHNIQUE: Magnetic resonance images of the head/brain without intravenous contrast in multiple planes. COMPARISON: Prior head CT from December 27, 2044. FINDINGS: Brain: There is a remote ischemic injury of the left capsule. Moderate nonspecific white matter changes. No mass. No hemorrhage. No acute infarct. The flow voids at the base the brain are intact. Ventricles: Unremarkable. No ventriculomegaly. Bones/joints: Unremarkable. No acute fracture. Sinuses: Unremarkable as visualized. No acute sinusitis. Mastoid air cells: There is a moderate amount of fluid in the right mastoid air cells.. No mastoid effusion. Orbits: Bilateral lens replacement with left retinal banding. IMPRESSION: No evidence of acute intracranial pathology. Electronically signed by: Roseann Herrera MD 12/27/24 22:24 PM (2) Sepsis Acute renal failure type: unspecified Sepsis acute organ dysfunction status: with acute organ dysfunction Sepsis type: sepsis due to unspecified organism Severe sepsis acute organ dysfunction type: acute renal failure Severe sepsis shock status: without septic shock Qualified Code(s): A41.9 - Sepsis, unspecified organism; R65.20 - Severe sepsis without septic shock; N17.9 - Acute kidney failure, unspecified (4) Alcoholic cirrhosis of liver Ascites presence: unspecified Qualified Code(s): K70.30 - Alcoholic cirrhosis of liver without ascites (6) Type 2 diabetes mellitus Diabetes mellitus complication status: with other specified complication Diabetes mellitus half-way insulin use: with half-way use Qualified Code(s): E11.69 - Type 2 diabetes mellitus with other specified complication; Z79.4 - jail (current) use of insulin
[2024-12-30] MEDS ORDERED: LANTUS PER UNIT CHARGE SC SCH (09:00)
[2024-12-30] MEDS: LANTUS PER UNIT CHARGE SC SCH ×2 (09:33→22:12)
--- NOTE | 2024-12-30 09:50 | Cardiology Consultation ---
Date of Consultation December 30, 2024 Assessment & Plan (1) SVT (supraventricular tachycardia): (2) Hypomagnesemia: (3) Complicated UTI (urinary tract infection): (4) Alcoholic cirrhosis of liver: (5) Orthostatic hypotension: Plan Patient admitted for worsening/altered mental status. Long history of alcoholic cirrhosis, encephalopathy and BPH with severe urinary retention, CEE, and hypomagnesium. No prior cardiac history. Found to have complicated UTI on admission since dumont placement several weeks ago for urinary retention. started on antibiotic therapy. Urine culture positive for Acinetobacter baumannii. Continue antibiotics per hospitalist Overnight patient had 35 minute run of AVNRT/SVT. Resolved spontaneously No symptoms reported Low magnesium at the time and since admission. Mag 1.8 this morning Given additional 2 gm. Goal Mag > 2.0. Potassium acceptable. He has been hypotensive since admission. Metoprolol tartrate initiated but held due to holding parameters. If BP improves, can trial low dose metoprolol Echo reveals normal LVEF, no wall motion abnormalities or significant valvular disease Long history of orthostatic hypotension Continue midodrine 2.5 mg TID. He appears euvolemic. Continue to hold diuretic Persistently low sodium. Case discussed with Dr. Santos I spent a total of 60 minutes on the date of service in preparation, delivery, and documentation of the care provided to this patient, excluding any time spent in the performance of separately billed services. Niharika Navas PA-C Department of Cardiology, [facility] This chart was completed in part utilizing Speech Voice Recognition Software. Grammatical errors, random word insertions, pronoun errors, and incomplete sentences are an occasional consequence of this system due to software limitations, ambient noise, and hardware issues. Any formal questions or concerns about the content, text, or information contained within the body of this dictation should be directly addressed to the provider for clarification. Supervising Physician Co-Signing Physician Notes I have personally performed a history and physical examination on the patient. I have reviewed the advance practitioner's documentation, and I agree with, and take responsibility for the plan of care. Patient is a poor historian. Denies any chest pain, palpitations, shortness of breath. Telemetry reveals 40-minute episode of supraventricular tachycardia overnight with heart rates up to 170 bpm. Significant hypomagnesemia noted on admission. 2D echocardiogram demonstrating preserved LV systolic function without significant valvular pathology. Recommend electrolyte replacement as indicated. Maintain serum potassium greater than 4.0, and serum magnesium greater than 2.0. At beta-magdalena therapy, metoprolol 12.5mg BID. Patient does not appear volume overloaded from a cardiovascular perspective. Hyponatremia treated by nephrology with loop diuretic therapy. Consider restarting torsemide next 24 to 48 hours. Spironolactone will remain on hold at this time. I spent a total of 35 minutes on the date of service in preparation, delivery, and documentation of the care provided to this patient, excluding any time spent in the performance of separately billed services. Brandt Santos DO, [facility] History of Present Illness Reason for Consultation: SVT Requesting Physician: luz elena Silverman Attending Physician: Dr. Santos History of Present Illness Patient is a 59 year old male admitted on 12/27/24 with altered mental status. Patient is not the best historian and information obtained from inpatient records. No prior inpatient or outpatient cardiac records. History is complex and includes alcoholic cirrhosis, thrombocytopenia, hypomag, DM type II, HTN, CKD stage IIIa, history of anoxic brain injury, bilateral hearing loss and congenital cataracts of both eyes with resulting legal blindness, long history of orthostatic hypotension on midodrine Recently admitted in November 2024 for acute hepatic encephalopathy and CEE due to obstructive uropathy in setting of BPH. Dumont cath placed during admission. Renal function improved and diuretics were reduced on discharge to torsemide 40 mg and spironolactone 25 mg daily due to ongoing ascites and liver cirrhosis. Patient readmitted 12/27 for confusion, altered mental status at home. Ammonia level WNL and LFT"s at baseline Low magnesium noted and supplemented. Last evening, patient had approx 35 min bout of SVT/AVNRT. resolved spontaneously. patient was asymptomatic. Hospitalist started patient on low do se metoprolol tartrate, but due to hypotension and holding parameters this was not given. This morning's labs demonstrate persistent hyponatremia, hypomag (but improved from admission). Echo with preserved LVEF. No wall motion abnormalities. At time of consult, patient reports feeling well. Denies acute complaints. Was asymptomatic with tachyarrhythmia last night. Allergies Allergy/AdvReac Type Severity Reaction Status Date / Time No Known Allergies Allergy Verified 04/04/21 18:18 Home Medications Medication Instructions Recorded Confirmed Type aspirin 81 mg tablet,delayed 81 mg PO DAILY 04/04/21 12/27/24 History release albuterol sulfate 90 mcg/actuation 1 puff inhalation DIRECTED PRN 11/20/24 12/27/24 History aerosol inhaler SOB/Wheezing L.acidop,casei,lactis,rham-B.lact,sudhir 1 cap PO DAILY #7 caps 12/03/24 12/27/24 Rx 625 mg (10 billion cell) capsule (Advanced Probiotic) folic acid 1 mg tablet 1 mg PO QAM #30 tabs 12/03/24 12/27/24 Rx magnesium chloride 64 mg 128 mg (2 x 64 mg) PO BID #60 tabs 12/03/24 12/27/24 Rx (magnesium chloride) tablet,delayed release (Mag 64) pantoprazole 40 mg tablet,delayed 40 mg PO DAILY #30 tabs 12/03/24 12/27/24 Rx release potassium chloride 20 mEq 40 meq (2 x 20 mEq) PO BID #60 tabs 12/03/24 12/27/24 Rx tablet,extended release(part/cryst) thiamine HCl (vitamin B1) 100 mg 100 mg PO DAILY #30 tabs 12/03/24 12/27/24 Rx tablet white petrolatum-mineral oil 1 applic EXT BID #454 grams 12/03/24 12/27/24 Rx topical cream (Dermacerin topical cream) blood sugar diagnostic (BioscanR, INCTouch #100 ea 12/18/24 12/27/24 Rx Ultra Test strips) blood-glucose meter #1 ea 12/18/24 12/27/24 Rx blood-glucose sensor (FreeStyle #2 ea 12/18/24 12/27/24 Rx Rj 3 Plus Sensor device) insulin glargine 100 unit/mL 10 unit (0.1 mL) SC BID 30 days 12/18/24 12/27/24 Rx subcutaneous solution (Lantus #10 mL U-100 Insulin) lactulose 20 gram oral packet 20 g PO TID #90 ea 12/18/24 12/27/24 Rx lancets 30 gauge (BioscanR, INCtouch Delica #200 ea 12/18/24 12/27/24 Rx Safety Lancet) midodrine 2.5 mg tablet 2.5 mg PO TID@0800,1200,1700 #90 12/18/24 12/27/24 Rx tabs pen needle, diabetic 32 gauge x #100 ea 12/18/24 12/27/24 Rx 5/32" rifaximin 550 mg tablet (Xifaxan) 550 mg PO BID #60 tabs 12/18/24 12/27/24 Rx spironolactone 25 mg tablet 25 mg PO DAILY #30 tabs 12/18/24 12/27/24 Rx torsemide 40 mg tablet 40 mg PO DAILY #30 tabs 12/18/24 12/27/24 Rx Patient History Medical History Congenital cataract of both eyes Hypertension BPH NOS w ur obs/LUTS Renal calculi Retained ureteral stent Alcohol dependence Surgical History S/P ureteral stent placement S/P lens implant Family History Other Breast cancer Diabetes Heart disease Social History Smoking Status: Never smoker Second Hand Exposure: No; Do You Dip or Chew Tobacco: Yes; Hx Alcohol Use: Yes Alcohol type: beer and hard liquor Hx Substance Use: No Preferred Language: Lebanese Communication Ability: Effective Tobacco Grader Required: No Beliefs That Will Affect Care: None Current Living Situation: Alone Current Living Situation Comment: Lives in Apartment by himself. Family does check on him. current occupational status: disabled Other Information That Helps Us Care for You: No Feels Safe at Home: Yes Assistive Devices: Walker Review of Systems Review of Systems: All systems reviewed & are unremarkable except as noted in HPI & below Physical Exam Constitutional: WD/WN, vitals as above Neck: trachea midline, no thyromegaly Respiratory: normal respiratory effort, lungs clear to auscultation Cardiovascular: RRR, no murmur, no edema Musculoskeletal: no cyanosis or clubbing, extremities motor strength 5/5 Results & Data Vital Signs (Past 12 Hours) Vital Signs Temp Pulse Pulse Resp BP BP Pulse Ox 12/30/24 08:17 36.5 C 85 18 94/61 L 97 12/30/24 04:33 36.7 C 87 18 99/65 L 98 12/29/24 22:23 12/29/24 22:10 36.9 C 115 H 20 102/66 98 12/29/24 22:03 122 H O2 Del Method 12/30/24 08:17 Room Air 12/30/24 04:33 Room Air 12/29/24 22:23 Room Air 12/29/24 22:10 Room Air 12/29/24 22:03 Laboratory Results Cardiac Enzymes 12/30/24 Range/Units 06:23 AST 40 H (13-39) U/L Troponin I High Sens 17.3 (0-20) pg/ml CBC 12/30/24 Range/Units 06:23 WBC 8.11 (4.8-10.8) K/ul RBC 3.06 L (4.70-6.10) M/uL Hgb 10.0 L (14.0-18.0) g/dl Hct 29.5 L (42.0-52.0) % Plt Count 71 L (130-400) K/uL Comprehensive Metabolic Panel 12/30/24 Range/Units 06:23 Sodium 130 L (136-145) mmol/L Potassium 4.2 (3.5-5.1) mmol/L Chloride 103 (98-107) mmol/L Carbon Dioxide 23 (21-32) mmol/L BUN 27 H (6-23) mg/dl Creatinine 1.48 H (0.6-1.4) mg/dl Glucose 150 H (70-99(Fasting)) mg/dl Calcium 8.4 L (8.6-10.3) mg/dl Direct Bilirubin 0.8 H (0-0.2) mg/dl AST 40 H (13-39) U/L ALT 40 (7-52) U/L Alkaline Phosphatase 147 H (34-104) U/L Total Protein 6.3 (6.0-8.3) gm/dl Albumin 2.3 L (3.4-5.0) gm/dl Intake and Output 12/29/24 12/30/24 12/30/24 22:59 06:59 14:59 Intake Total 1300 / 3940.833 200 / 3940.833 Output Total 201 / 1477 601 / 1477 Balance 1099 / 2463.833 -401 / 2463.833 Intake: IV 1300 / 1880.833 200 / 1880.833 Ampicillin/Sulbactam Sod 3,000 200 / 600 200 / 600 mg In 100 ml @ 200 mls/hr IV Q4 OLIVIA Rx#:[id number] Magnesium Sulfate / D5w 1 gm In 100 / 280.833 100 ml @ 50 mls/hr IV Q2H OLIVIA Rx#:[id number] Sodium Chloride 0.9% 1,000 ml @ 1000 / 1000 100 mls/hr IV .Q10H OLIVIA Rx#: [id number] Output: Urine 200 / 1475 600 / 1475 # Bowel Movements 1 / 2 1 / 2 Other: # Unmeasured Voids 1 Diagnostic Findings EKG reviewed from admission on 12/27/24: Sinus tachycardia at 110 bmp Old septal infarct, previously noted EKG reviewed from 12/29/24: SVT at 167 bmp old anteroseptal infarct, previously noted Echo report reviewed dated 12/30/24: Compared to prior study, no significant change LVEF is normal at 60-65% Grade I diastolic dysfunction Mild TR No pulm hypertension Aortic valve sclerosis moderate without stenosis. Head CT 12/27/24 15:20 Impression: 1. Unchanged cerebral atrophy, old infarct, and chronic small vessel ischemic disease 2. Partial opacification of the mastoid air cells, which may be due to inflammatory mastoiditis Brain MRI 12/27/24 18:43 IMPRESSION: No evidence of acute intracranial pathology. Medications Administered Current Inpatient Medications Acetaminophen (Acetaminophen 325 Mg Tab) 650 mg PO Q4H PRN PRN Reason: Pain or Fever Stop: 01/26/25 20:57 Aspirin (Aspirin 81 Mg Ectab) 81 mg PO DAILY OLIVIA Stop: 01/27/25 08:59 Last Admin: 12/30/24 09:37 Dose: 81 mg Dextrose (Dextrose 50% 50 Ml Syringe) 25 - 50 ml IV UD PRN; Protocol PRN Reason: Hypoglycemia Protocol Stop: 01/26/25 19:24 Folic Acid (Folic Acid 1 Mg Tab) 1 mg PO QAM OLIVIA Stop: 01/27/25 08:59 Last Admin: 12/30/24 09:34 Dose: 1 mg Glucagon (Glucagon For Inj 1 Mg Vial) 1 mg SQ UD PRN; Protocol PRN Reason: Hypoglycemia Protocol Stop: 01/26/25 19:24 Glucose (Glucose 40% Gel 15 Gm Tube) 15 - 30 gm PO UD PRN; Protocol PRN Reason: Hypoglycemia Protocol Stop: 01/26/25 19:24 Glucose (Glucose 10 Tab/Tube) 4 - 8 tab PO UD PRN; Protocol PRN Reason: Hypoglycemia Protocol Stop: 01/26/25 19:24 Heparin Sodium (Porcine) (Heparin Sod 5,000 Unit/0.5 Ml Vial) 5,000 units SQ Q12 OLIVIA Stop: 01/26/25 20:59 Last Admin: 12/30/24 09:34 Dose: 5,000 units Ampicillin Sodium/Sulbactam Sodium (Unasyn) 3,000 mg in 100 mls @ 200 mls/hr IV Q4 OLIVIA Stop: 01/07/25 15:59 Last Infusion: 12/30/24 13:12 Dose: Infused Magnesium Sulfate/Dextrose (Magnesium Sulfate / D5w) 1 gm in 100 mls @ 50 mls/hr IV Q2H OLIVIA Stop: 12/30/24 17:59 Insulin Aspart (Insulin Aspart Per Unit Charge) 0 units SC ACHS OLIVIA Stop: 01/26/25 20:59 Last Admin: 12/30/24 12:38 Dose: 6 units Insulin Glargine (Lantus Per Unit Charge) 8 units SC QAM OLIVIA Stop: 01/29/25 08:59 Last Admin: 12/30/24 09:33 Dose: 8 units Insulin Glargine (Lantus Per Unit Charge) 0 units SC HS [facility]; Protocol Stop: 01/29/25 20:59 Lactobacillus Acidophilus (Advanced Probiotic 625 Mg Capsule) 625 mg PO DAILY OLIVIA Stop: 01/27/25 08:59 Last Admin: 12/30/24 09:38 Dose: 625 mg Lactulose (Lactulose Syrup 20 Gm/30 Ml Udc) 20 gm PO TID OLIVIA Stop: 01/26/25 20:59 Last Admin: 12/30/24 09:34 Dose: 20 gm Magnesium Hydroxide (Magnesium Hydroxide Susp 30 Ml Udc) 30 ml PO Q12H PRN PRN Reason: Constipation Stop: 01/26/25 20:57 Magnesium Oxide (Magnesium Oxide 400 Mg Tab) 400 mg PO BID OLIVIA Stop: 01/28/25 20:59 Last Admin: 12/30/24 09:34 Dose: 400 mg Metoprolol Tartrate (Metoprolol Tartrate 25 Mg Tab) 12.5 mg PO BID [facility] Stop: 01/29/25 08:59 Last Admin: 12/30/24 10:38 Dose: Not Given Midodrine (Midodrine Hcl 2.5 Mg Tab) 2.5 mg PO TID@0800,1200,1700 [facility] Stop: 01/27/25 07:59 Last Admin: 12/30/24 12:39 Dose: 2.5 mg Miscellaneous (Carbohydrates For Hypoglycemia ) 15 - 30 gm PO UD PRN PRN Reason: Hypoglycemia Protocol Stop: 01/26/25 19:24 Miscellaneous Information (Pharmacy Glycemic Mgmt Consult) 1 each N/A UD PRN PRN Reason: Consult Stop: 01/26/25 19:24 Ondansetron HCl (Ondansetron Inj 2 Mg/Ml 2 Ml Vial) 4 mg IV Q6H PRN PRN Reason: Nausea Stop: 01/26/25 20:57 Pantoprazole Sodium (Pantoprazole 40 Mg Tab) 40 mg PO DAILY OLIVIA Stop: 01/27/25 08:59 Last Admin: 12/30/24 09:37 Dose: 40 mg Polyethylene Glycol (Polyethylene (Miralax) 17 Gm Pack) 17 gm PO DAILY PRN PRN Reason: Constipation Stop: 01/26/25 20:57 Rifaximin (Rifaximin 550 Mg Tablet) 550 mg PO BID OLIVIA Stop: 01/26/25 20:59 Last Admin: 12/30/24 09:38 Dose: 550 mg Thiamine HCl (Thiamine Hcl 100 Mg Tab) 100 mg PO DAILY OLIVIA Stop: 01/27/25 08:59 Last Admin: 12/30/24 09:34 Dose: 100 mg (4) Alcoholic cirrhosis of liver Ascites presence: unspecified Qualified Code(s): K70.30 - Alcoholic cirrhosis of liver without ascites
--- NOTE | 2024-12-30 10:23 | Pharmacy Report ---
Pharmacy Glycemic Short Note 2 - Date of Service December 30, 2024 - Glycemic Short BSG Results (Last 24 hours): 12/29/24 12/29/24 12/29/24 12:02 17:05 20:24 Glucose POC Glucose 193 H 131 H 170 H 12/30/24 12/30/24 06:23 07:59 Glucose 150 H POC Glucose 143 H OUTPATIENT ANTIDIABETIC REGIMEN: * Lantus 10 units SC BID (compliance not confirmed) HbA1c: 10.1% (11/20/24) ASSESSMENT: 12/30/24: * Blood sugars reasonably controlled yesterday, ranging 119-193 mg/dL * Received 31 units of insulin (10 units of basal and 21 units of prandial/correctional bolus) * Originally NPO this morning, but now ordered a diet 12/29/24: * Major is a 59 yo M with PMHx significant for alcoholic cirrhosis, thrombocytopenia, DM type II, HTN, CKD stage IIIa, history of anoxic brain injury, bilateral hearing loss and congenital cataracts of both eyes with resulting legal blindness who presented to the ED due to altered mental status and weakness. * During November 2024 admission, his Lantus dose was decreased to 10 units BID. Patient started on basal dose per BSG scale this admission. He tolerated a total of 10 units yesterday with fasting BSG of 119 mg/dL today. Will transition to Lantus 10 units once daily. * Continue Novolog per weight based dosing. PLAN FOR INPATIENT GLYCEMIC CONTROL: * Basal insulin * Lantus 8 units SC qAM (reduced due to NPO status) * Lantus 0-4-8 units SC HS (see EHR for details) * Likely back to AM dosing only in AM * Bolus insulin * NovoLog per scale ACHS or Q6hrs while NPO * Goal Range: Low 110 mg/dL - High 140 mg/dL * Correction Factor: 25 mg/dL/unit * Nutritional / Prandial insulin per carb ratio of 1 unit per 8 grams CHO consumed
[2024-12-30] MEDS: METOPROLOL TARTRATE 25 MG TAB PO SCH (10:38)
--- NOTE | 2024-12-30 12:48 | Electrocardiogram Report ---
Test Reason : Blood Pressure : */* mmHG Vent. Rate : 167 BPM Atrial Rate : 115 BPM P-R Int : * ms QRS Dur : 96 ms QT Int : 296 ms P-R-T Axes : * 13 90 degrees QTcB Int : 493 ms Supraventricular tachycardia Anteroseptal infarct (cited on or before 09-Jun-2022) Abnormal ECG When compared with ECG of 27-Dec-2024 15:22, (unconfirmed) Vent. rate has increased by 56 bpm Questionable change in initial forces of Anterior leads Non-specific change in ST segment in Lateral leads Confirmed by Kevyn Real ([id number]) on 12/30/2024 12:48:30 PM Referred By: REFERRED SELF Confirmed By: Kevyn Real
[2024-12-30] MEDS: MAGNESIUM SULFATE / D5W 1 GM/100 ML BAG IV SCH (14:54)
--- NOTE | 2024-12-31 10:41 | Hospitalist Progress Note ---
Date of Service December 31, 2024 Assessment & Plan (1) Metabolic encephalopathy: (2) Sepsis: (3) Complicated UTI (urinary tract infection): (4) Alcoholic cirrhosis of liver: (5) Acute kidney injury superimposed on stage 3a chronic kidney disease: (6) Type 2 diabetes mellitus: (7) Hypomagnesemia: Plan "Guido" is a 59 yr old M who has a significant PMH of T2DM, HTN, Alcoholic Liver Cirrhosis, Thrombocytopenia, hx of hepatic encephalopathy, legally blind and hx of anoxic brain injury who presented to ED and was found to have metabolic encephalopathy in setting of hepatic cirrhosis and UTI. Recent hospitalization 12/16/2024-12/18/2024 with acute hepatic encephalopathy and CEE due to obstructive uropathy in the setting of underlying BPH. Presented with similar symptoms at that time. Was discharged home with services through [facility]. Dumont catheter was in place at time of discharge. Metabolic Encephalopathy Hepatic Cirrhosis 2/2 alcoholism NH3 normal on presentation, pt reports noncompliance with meds and sister Modesta confirms this Continue lactulose, Xifaxan Suspect encephalopathy likely multifactorial in setting of cirrhosis, Complicated UTI -> mentation improving, patient having adequate 4 BMs daily Renal fxn improved, continue to hold Torsemide and spironolactone given euvolemic status and soft BPs May need to consider decreasing diuretics on discharge given recent admissions with impaired renal function LFTS stable CBC, BMP, LFTs in AM Episode of SVT -> resolved Noted to develop SVT overnight with HR in 170s, did not initially respond to vagal maneuver per nursing note - converted back to NSR by time of arrival to PCU Patient has remained in NSR today with HR 80-90s Magnesium replaced, goal Mg >2 and K >4 Continue Lopressor 12.5mg BID Continue holding diuretics for now, appreciate cardiology input CEE on CKD 3 -> resolved Baseline cr 1.2-1.7 2.07 on admission->2.02 -> 1.48 Dumont removed for TOV and he has been urinating w/o difficulty/retention Avoid nephrotoxic agents Sepsis, not present on admission Complicated UTI in setting of indwelling dumont, POA Suspected UTI, urine culture > 100k Acinetobacter baumannii/nosoco IV antibiotics transitioned to IV Unasyn, based on culture Transitioned to Augmentin today (day #4) to reduce fluid burden DM II A1c 10.1 12/13 Insulin per protocol, appreciate glycemic pharmacy management Hypomagnesemia Changed daily mag supplement to magnesium oxide 400mg bid Keep Mg >2 given bout of SVT as above Monitor DVT Prophylaxis: SQ Heparin Code Status: FULL CODE PCP: Luly Guajardo PA-C Disposition: Admitted to med/telemetry, clinically improving, PT recommending SNF, pt agreeable Sister Modesta ([phone]) updated. Appreciate CM assistance with placement, awaiting bed at [facility]. Patient seen in collaboration with Dr. Jeffers. I spent a total of 50 minutes coordinating, documenting, and providing care for this patient excluding time spent in the performance of separately billed services or time spent by another provider/QHP. Admission and Anticipated Discharge Date Admission Date: December 27, 2024 Supervising Physician Co-Signing Physician Notes I have reviewed the advanced practitioner's documentation, and I agree with, and take responsibility for the plan of care Subjective Seen and examined in [facility]-2. Feeling well today, NAEO. Sinus tachycardia of 105 bpm on tele review. Denies any acute events overnight. Continue to have 4 BMs daily, mentation at baseline. Denies f/c/s, chest pain, sob, n/v. Tolerating diet. Urinating without difficulty. Awaiting SNF placement. Review of Systems Review of Systems: At least ten systems reviewed and negative, except as noted in the HPI. Physical Exam Physical Exam: Gen: WD/WN, NAD, sitting in bedside chair, A&Ox3 HEENT: +Blind, Normocephalic, atraumatic, conjunctivae moist, sclerae anicteric, mucous membranes moist Lung: Clear to Auscultation bilaterally Heart: Regular rate, regular rhythm Abdomen: Soft, NT, ND +BS x 4 Extremities: no edema Skin: Warm, no rash Results & Data Results & Data Vital Signs (Past 12 Hours) Vital Signs Temp Pulse Pulse Resp BP BP Pulse Ox 12/31/24 07:47 12/31/24 07:37 36.6 C 112 H 18 99/66 L 98 12/31/24 07:20 103 H 12/31/24 03:33 36.7 C 94 H 18 105/67 99 12/30/24 23:37 36.7 C 94 H 14 103/64 97 O2 Del Method 12/31/24 07:47 Room Air 12/31/24 07:37 Room Air 12/31/24 07:20 12/31/24 03:33 Room Air 12/30/24 23:37 Room Air Laboratory Results [facility] 12/31/24 09:02 Sodium 132 L Potassium 4.2 Chloride 102 Carbon Dioxide 26 BUN 23 Creatinine 1.37 Glucose 245 H Calcium 8.[address] 12/27/24 15:20 Technique: Axial computed tomography images were obtained of the brain without intravenous contrast. Comparison is made to the prior CT dated 12/16/2024 Findings: There is unchanged cerebral atrophy, within expected limits for the patient's age. Areas of decreased attenuation are seen within the periventricular white matter, likely representing chronic small vessel ischemic disease. 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 There is no definite sign of acute infarction. No intracranial hemorrhage is evident. No definite mass lesion is seen on this noncontrast examination. There is no midline shift or other form of herniation. No hydrocephalus is seen. No fracture is identified. The orbits and the visualized paranasal sinuses appear unremarkable. There is partial opacification of the mastoid air cells bilaterally Impression: 1. Unchanged cerebral atrophy, old infarct, and chronic small vessel ischemic disease 2. Partial opacification of the mastoid air cells, which may be due to inflammatory mastoiditis ACT 112: Positive. There are findings on this exam that require communication between the performing entity and the patient following Patient Test Result Information Act ([place] ACT 112) guidelines. Electronically signed by Demarco Bolton 12-27-2024 4:38 PM Brain MRI 12/27/24 18:43 Exam(s): MRI HEAD Without Contrast EXAM: MR Head Without Intravenous Contrast CLINICAL HISTORY: Reason for exam: Generalized weakness. TECHNIQUE: Magnetic resonance images of the head/brain without intravenous contrast in multiple planes. COMPARISON: Prior head CT from December 27, 2044. FINDINGS: Brain: There is a remote ischemic injury of the left capsule. Moderate nonspecific white matter changes. No mass. No hemorrhage. No acute infarct. The flow voids at the base the brain are intact. Ventricles: Unremarkable. No ventriculomegaly. Bones/joints: Unremarkable. No acute fracture. Sinuses: Unremarkable as visualized. No acute sinusitis. Mastoid air cells: There is a moderate amount of fluid in the right mastoid air cells.. No mastoid effusion. Orbits: Bilateral lens replacement with left retinal banding. IMPRESSION: No evidence of acute intracranial pathology. Electronically signed by: Roseann Herrera MD 12/27/24 22:24 PM (2) Sepsis Acute renal failure type: unspecified Sepsis acute organ dysfunction status: with acute organ dysfunction Sepsis type: sepsis due to unspecified organism Severe sepsis acute organ dysfunction type: acute renal failure Severe sepsis shock status: without septic shock Qualified Code(s): A41.9 - Sepsis, unspecified organism; R65.20 - Severe sepsis without septic shock; N17.9 - Acute kidney failure, unspecified (4) Alcoholic cirrhosis of liver Ascites presence: unspecified Qualified Code(s): K70.30 - Alcoholic cirrhosis of liver without ascites (6) Type 2 diabetes mellitus Diabetes mellitus complication status: with other specified complication Diabetes mellitus technical research scientist insulin use: with technical research scientist use Qualified Code(s): E11.69 - Type 2 diabetes mellitus with other specified complication; Z79.4 - boom master (current) use of insulin
[2024-12-31 10:48] LABS: BUN Creatinine Ratio 16.8 (10-20); Calcium 8.7 mg/dl (8.6-10.3); Creatinine Clr Calc Pharmacy 55.8 ml/min; Magnesium 1.9 mg/dl (1.7-2.4); Potassium 4.2 mmol/L (3.5-5.1)
[2024-12-31] MEDS: MAGNESIUM SULFATE / D5W 1 GM/100 ML BAG IV ONE (11:18)
[2024-12-31] MEDS: AMOXICILLIN/CLAVULANATE 875 MG TAB PO SCH (11:18)
--- NOTE | 2024-12-31 12:03 | Cardiology Consultation ---
Date of Consultation December 31, 2024 Assessment & Plan (1) SVT (supraventricular tachycardia): (2) Hypomagnesemia: (3) Complicated UTI (urinary tract infection): (4) Alcoholic cirrhosis of liver: (5) Orthostatic hypotension: Plan Assessment & Plan (1) SVT (supraventricular tachycardia): (2) Hypomagnesemia: (3) Complicated UTI (urinary tract infection): (4) Alcoholic cirrhosis of liver: (5) Orthostatic hypotension: Patient admitted for worsening/altered mental status. Long history of alcoholic cirrhosis, encephalopathy and BPH with severe urinary retention, CEE, and hypomagnesium. No prior cardiac history. Found to have complicated UTI on admission since dumont placement several weeks ago for urinary retention. started on antibiotic therapy. Urine culture positive for Acinetobacter baumannii. Continue antibiotics per hospitalist Overnight patient had 35 minute run of AVNRT/SVT. Resolved spontaneously No symptoms reported Low magnesium at the time and since admission. Mag 1.8 this morning Given additional 2 gm. Goal Mag > 2.0. Potassium acceptable. He has been hypotensive since admission. Metoprolol tartrate initiated but held due to holding parameters. If BP improves, can trial low dose metoprolol Echo reveals normal LVEF, no wall motion abnormalities or significant valvular disease Long history of orthostatic hypotension Continue midodrine 2.5 mg TID. He appears euvolemic. Continue to hold diuretic Persistently low sodium. Case discussed with Dr. Santos I spent a total of 60 minutes on the date of service in preparation, delivery, and documentation of the care provided to this patient, excluding any time spent in the performance of separately billed services. Niharika Navas PA-C Department of Cardiology, [facility] This chart was completed in part utilizing Speech Voice Recognition Software. Grammatical errors, random word insertions, pronoun errors, and incomplete sentences are an occasional consequence of this system due to software limitations, ambient noise, and hardware issues. Any formal questions or concerns about the content, text, or information contained within the body of this dictation should be directly addressed to the provider for clarification. History of Present Illness Attending Physician: Jozef Jeffers MD Allergies Allergy/AdvReac Type Severity Reaction Status Date / Time No Known Allergies Allergy Verified 04/04/21 18:18 Home Medications Medication Instructions Recorded Confirmed Type aspirin 81 mg tablet,delayed 81 mg PO DAILY 04/04/21 12/27/24 History release albuterol sulfate 90 mcg/actuation 1 puff inhalation DIRECTED PRN 11/20/24 12/27/24 History aerosol inhaler SOB/Wheezing L.acidop,casei,lactis,rham-B.lact,sudhir 1 cap PO DAILY #7 caps 12/03/24 12/27/24 Rx 625 mg (10 billion cell) capsule (Advanced Probiotic) folic acid 1 mg tablet 1 mg PO QAM #30 tabs 12/03/24 12/27/24 Rx magnesium chloride 64 mg 128 mg (2 x 64 mg) PO BID #60 tabs 12/03/24 12/27/24 Rx (magnesium chloride) tablet,delayed release (Mag 64) pantoprazole 40 mg tablet,delayed 40 mg PO DAILY #30 tabs 12/03/24 12/27/24 Rx release potassium chloride 20 mEq 40 meq (2 x 20 mEq) PO BID #60 tabs 12/03/24 12/27/24 Rx tablet,extended release(part/cryst) thiamine HCl (vitamin B1) 100 mg 100 mg PO DAILY #30 tabs 12/03/24 12/27/24 Rx tablet white petrolatum-mineral oil 1 applic EXT BID #454 grams 12/03/24 12/27/24 Rx topical cream (Dermacerin topical cream) blood sugar diagnostic (Ampla PharmaceuticalsTouch #100 ea 12/18/24 12/27/24 Rx Ultra Test strips) blood-glucose meter #1 ea 12/18/24 12/27/24 Rx blood-glucose sensor (FreeStyle #2 ea 12/18/24 12/27/24 Rx Rj 3 Plus Sensor device) insulin glargine 100 unit/mL 10 unit (0.1 mL) SC BID 30 days 12/18/24 12/27/24 Rx subcutaneous solution (Lantus #10 mL U-100 Insulin) lactulose 20 gram oral packet 20 g PO TID #90 ea 12/18/24 12/27/24 Rx lancets 30 gauge (Onetouch Delica #200 ea 12/18/24 12/27/24 Rx Safety Lancet) midodrine 2.5 mg tablet 2.5 mg PO TID@0800,1200,1700 #90 12/18/24 12/27/24 Rx tabs pen needle, diabetic 32 gauge x #100 ea 12/18/24 12/27/24 Rx " rifaximin 550 mg tablet (Xifaxan) 550 mg PO BID #60 tabs 12/18/24 12/27/24 Rx spironolactone 25 mg tablet 25 mg PO DAILY #30 tabs 12/18/24 12/27/24 Rx torsemide 40 mg tablet 40 mg PO DAILY #30 tabs 12/18/24 12/27/24 Rx Patient History Medical History Congenital cataract of both eyes Hypertension BPH NOS w ur obs/LUTS Renal calculi Retained ureteral stent Alcohol dependence Surgical History S/P ureteral stent placement S/P lens implant Family History Other Breast cancer Diabetes Heart disease Social History Smoking Status: Never smoker Second Hand Exposure: No; Do You Dip or Chew Tobacco: Yes; Hx Alcohol Use: Yes Alcohol type: beer and hard liquor Hx Substance Use: No Preferred Language: Hebrew Communication Ability: Effective Community Living Coach Required: No Beliefs That Will Affect Care: None Current Living Situation: Alone Current Living Situation Comment: Lives in Apartment by himself. Family does check on him. current occupational status: disabled Other Information That Helps Us Care for You: No Feels Safe at Home: Yes Assistive Devices: Walker Results & Data Vital Signs (Past 12 Hours) Vital Signs Temp Pulse Pulse Resp BP Pulse Ox O2 Del Method 12/31/24 07:47 Room Air 12/31/24 07:37 36.6 C 112 H 18 99/66 L 98 Room Air 12/31/24 07:20 103 H 12/31/24 03:33 36.7 C 94 H 18 105/67 99 Room Air (4) Alcoholic cirrhosis of liver Ascites presence: unspecified Qualified Code(s): K70.30 - Alcoholic cirrhosis of liver without ascites
--- NOTE | 2024-12-31 12:32 | Cardiology Progress Note ---
Date of Service December 31, 2024 Assessment & Plan Admission and Anticipated Discharge Date Admission Date: December 27, 2024 Results & Data Vital Signs (Past 12 Hours) Vital Signs Temp Pulse Pulse Resp BP Pulse Ox O2 Del Method 12/31/24 07:47 Room Air 12/31/24 07:37 36.6 C 112 H 18 99/66 L 98 Room Air 12/31/24 07:20 103 H 12/31/24 03:33 36.7 C 94 H 18 105/67 99 Room Air
--- NOTE | 2024-12-31 12:52 | Cardiology Progress Note ---
Date of Service December 31, 2024 Assessment & Plan (1) SVT (supraventricular tachycardia): (2) Hypomagnesemia: (3) Complicated UTI (urinary tract infection): (4) Alcoholic cirrhosis of liver: (5) Orthostatic hypotension: Plan Assessment & Plan (1) SVT (supraventricular tachycardia): (2) Hypomagnesemia: (3) Complicated UTI (urinary tract infection): (4) Alcoholic cirrhosis of liver: (5) Orthostatic hypotension: SVT -No arrhythmias noted on telemetry overnight. -Continue to monitor on telemetry -Continue metoprolol if BP permits. Hypomagnesemia -Magnesium is 1.9 this am. 1gm IV magnesium ordered. Hyponatremia - -Continue with 1800ml fluid restriction Complicated UTI -Continue with ABX per hospitalist. Alcoholic cirrhosis of liver -Continue Lactulose, Xifaxan -Restart Torsemide 20mg daily -LFTS stable Orthostatic hypotension -Continue midodrine -Continue Metoprolol as BP allows. -Restart Torsemide 20mg daily Case discussed with Dr. Santos I spent a total of 60 minutes on the date of service in preparation, delivery, and documentation of the care provided to this patient, excluding any time spent in the performance of separately billed services. Casey CLARK Department of Cardiology, [facility] This chart was completed in part utilizing Speech Voice Recognition Software. Grammatical errors, random word insertions, pronoun errors, and incomplete sentences are an occasional consequence of this system due to software limitations, ambient noise, and hardware issues. Any formal questions or concerns about the content, text, or information contained within the body of this dictation should be directly addressed to the provider for clarification. Admission and Anticipated Discharge Date Admission Date: December 27, 2024 Supervising Physician Co-Signing Physician Notes I have personally performed a history and physical examination on the patient. I have reviewed the advance practitioner's documentation, and I agree with, and take responsibility for the plan of care. No evidence of recurrent supraventricular tachycardia over the past 24 hours. Magnesium replaced intravenously as well as with oral supplement. Serum sodium unchanged. Loop diuretic therapy and spironolactone on hold since admission. Recommendations: * Metoprolol 12.5 mg twice daily with adjustment of hold parameters for systolic blood pressure less than 95 mmHg. First dose now. * Resume torsemide at reduced dose, 20 mg daily. (outpatient dose 40mg daily) * Monitor electrolytes daily. * Continue oral magnesium supplementation. * Continue telemetry monitoring. I spent a total of 30 minutes on the date of service in preparation, delivery, and documentation of the care provided to this patient, excluding any time spent in the performance of separately billed services. Brandt Santos DO, [facility] Subjective Guido is pleasant and A/XO x4 today. He states he feels better and is on the mend. He states he has not had any dizziness, lightheadedness, cp, sob, palpitations. States he is moving his bowels and that they are loose which is normal with his lactulose. His abdomen is rounded and firm with active bowel sounds. Does have trace edema in LE BL. No issues on telemetry overnight. Currently normal sinus on monitor. Am dose of Metoprolol held for hypotension per protocol. Magnesium 1.9 this am 1gm Magnesium IV ordered. Sodium is 132. Kidney function stable. LFTS stable. Review of Systems Review of Systems: Unremarkable other than what is listed in HPI Physical Exam Constitutional: WD/WN, vitals as above Eyes: PERRL, conjunctivae normal, anicteric sclerae ENMT: external ear and nose normal, oropharynx normal Neck: trachea midline, no thyromegaly Respiratory: normal respiratory effort, lungs clear to auscultation Cardiovascular: Trace edema LE BL Gastrointestinal (Abdomen): Abdomen mildly distended and firm. Musculoskeletal: no cyanosis or clubbing, extremities motor strength 5/5 Neurologic: A/0X4. Cooperative and appropriate Psychiatric: A+Ox3, euthymic affect Results & Data Vital Signs (Past 12 Hours) Vital Signs Temp Pulse Pulse Resp BP BP Pulse Ox 12/31/24 12:29 36.6 C 101 H 18 127/70 97 12/31/24 07:47 12/31/24 07:37 36.6 C 112 H 18 99/66 L 98 12/31/24 07:20 103 H 12/31/24 03:33 36.7 C 94 H 18 105/67 99 O2 Del Method 12/31/24 12:29 Room Air 12/31/24 07:47 Room Air 12/31/24 07:37 Room Air 12/31/24 07:20 12/31/24 03:33 Room Air Laboratory Results Comprehensive Metabolic Panel 12/31/24 Range/Units 09:02 Sodium 132 L (136-145) mmol/L Potassium 4.2 (3.5-5.1) mmol/L Chloride 102 (98-107) mmol/L Carbon Dioxide 26 (21-32) mmol/L BUN 23 (6-23) mg/dl Creatinine 1.37 (0.6-1.4) mg/dl Glucose 245 H (70-99(Fasting)) mg/dl Calcium 8.7 (8.6-10.3) mg/dl Intake and Output 12/30/24 12/31/24 12/31/24 22:59 06:59 14:59 Intake Total 375 / 1355 200 / 1355 440 / 440 Output Total 100 / 1253 527 / 1253 175 / 175 Balance 275 / 102 -327 / 102 265 / 265 Intake: IV 375 / 675 200 / 675 200 / 200 Ampicillin/Sulbactam Sod 3,000 200 / 500 200 / 500 100 / 100 mg In 100 ml @ 200 mls/hr IV Q4 [facility] Rx#:[id number] Magnesium Sulfate / D5w 1 gm In 175 / 175 100 / 100 100 ml @ 50 mls/hr IV ONE ONE Rx#:[id number] Oral 240 / 240 Output: Urine 100 / 1250 525 / 1250 175 / 175 # Bowel Movements 2 / 3 Other: # Unmeasured Voids 1 Weight 79.7 kg Weight Measurement Method Standing Scale Diagnostic Findings Normal sinus on monitor. (4) Alcoholic cirrhosis of liver Ascites presence: unspecified Qualified Code(s): K70.30 - Alcoholic cirrhosis of liver without ascites
--- NOTE | 2024-12-31 12:55 | Cardiology Progress Note ---
Date of Service December 31, 2024 Assessment & Plan Admission and Anticipated Discharge Date Admission Date: December 27, 2024 Results & Data Vital Signs (Past 12 Hours) Vital Signs Temp Pulse Pulse Resp BP BP Pulse Ox 12/31/24 12:29 36.6 C 101 H 18 127/70 97 12/31/24 07:47 12/31/24 07:37 36.6 C 112 H 18 99/66 L 98 12/31/24 07:20 103 H 12/31/24 03:33 36.7 C 94 H 18 105/67 99 O2 Del Method 12/31/24 12:29 Room Air 12/31/24 07:47 Room Air 12/31/24 07:37 Room Air 12/31/24 07:20 12/31/24 03:33 Room Air
[2024-12-31] MEDS: METOPROLOL TARTRATE 50 MG TAB PO STA (13:21)
[2024-12-31] MEDS: TORSEMIDE 20 MG TAB PO SCH (14:25)
[2025-01-01 05:33] LABS: Hematocrit (blood only) 27.6 % (42.0-52.0); Hemoglobin 9.6 g/dl (14.0-18.0); Mean Corpuscular Hemoglobin 32.1 pg (25.0-34.0); Mean Corpuscular Hgb Conc 34.8 g/dL (32.0-36.0); Mean Corpuscular Volume 92.3 fL (80.0-100.0); Mean Platelet Volume 10.9 fL (9.4-12.4); Platelet Count 90 K/uL (130-400); RDW Coefficient of Variation 13.7 % (11.5-14.5); RDW Standard Deviation 46.5 fL (36.4-46.3); Red Blood Count 2.99 M/uL (4.70-6.10); White Blood Count 6.73 K/ul (4.8-10.8)
[2025-01-01 05:58] LABS: Albumin Globulin Ratio 0.6 (0.9-2); Albumin Level 2.3 gm/dl (3.4-5.0); Calcium 8.3 mg/dl (8.6-10.3); Creatinine Clr Calc Pharmacy 56.6 ml/min; Globulin 4.1 gm/dl (2.5-4.0); Magnesium 1.4 mg/dl (1.7-2.4); Potassium 3.4 mmol/L (3.5-5.1); Total Protein 6.4 gm/dl (6.0-8.3)
[2025-01-01 08:18] VITALS: O2SAT 98
--- NOTE | 2025-01-01 08:49 | Pharmacy Report ---
Pharmacy Glycemic Short Note 2 - Date of Service January 01, 2025 - Glycemic Short BSG Results (Last 24 hours): 12/31/24 12/31/24 12/31/24 09:02 11:55 17:10 Glucose 245 H POC Glucose 94 136 H 12/31/24 01/01/25 01/01/25 20:26 05:00 07:59 Glucose 129 H POC Glucose 101 H 112 H OUTPATIENT ANTIDIABETIC REGIMEN: * Lantus 10 units SC BID (compliance not confirmed) HbA1c: 10.1% (11/20/24) ASSESSMENT: 01/02/25: * Blood sugars well-controlled yesterday, ranging 94-136 mg/dL * Received 25 units of insulin (8 units of basal and 17 units of prandial/correctional bolus) * Fasting blood sugar of 112 mg/dL this morning * Do not anticipate any changes to glycemic regimen today 12/30/24: * Blood sugars reasonably controlled yesterday, ranging 119-193 mg/dL * Received 31 units of insulin (10 units of basal and 21 units of prandial/correctional bolus) * Originally NPO this morning, but now ordered a diet 12/29/24: * Major is a 59 yo M with PMHx significant for alcoholic cirrhosis, thrombocytopenia, DM type II, HTN, CKD stage IIIa, history of anoxic brain injury, bilateral hearing loss and congenital cataracts of both eyes with resulting legal blindness who presented to the ED due to altered mental status and weakness. * During November 2024 admission, his Lantus dose was decreased to 10 units BID. Patient started on basal dose per BSG scale this admission. He tolerated a total of 10 units yesterday with fasting BSG of 119 mg/dL today. Will transition to Lantus 10 units once daily. * Continue Novolog per weight based dosing. PLAN FOR INPATIENT GLYCEMIC CONTROL: * Basal insulin * Lantus 8 units SC qAM * Bolus insulin * NovoLog per scale ACHS or Q6hrs while NPO * Goal Range: Low 110 mg/dL - High 140 mg/dL * Correction Factor: 30 mg/dL/unit * Nutritional / Prandial insulin per carb ratio of 1 unit per 10 grams CHO consumed
[2025-01-01] MEDS ORDERED: LANTUS PER UNIT CHARGE SC SCH (09:00)
[2025-01-01] MEDS: MAGNESIUM SULFATE / D5W 1 GM/100 ML BAG IV SCH (09:03)
[2025-01-01] MEDS: LANTUS PER UNIT CHARGE SC SCH (09:03)
--- NOTE | 2025-01-01 09:38 | Cardiology Progress Note ---
Date of Service January 01, 2025 Assessment & Plan (1) SVT (supraventricular tachycardia): (2) Hypomagnesemia: (3) Complicated UTI (urinary tract infection): (4) Alcoholic cirrhosis of liver: (5) Orthostatic hypotension: Plan Assessment & Plan (1) SVT (supraventricular tachycardia): (2) Hypomagnesemia: (3) Complicated UTI (urinary tract infection): (4) Alcoholic cirrhosis of liver: (5) Orthostatic hypotension: 12/31/24 SVT -No arrhythmias noted on telemetry overnight. -Continue to monitor on telemetry -Continue metoprolol if BP permits. Hypomagnesemia -Magnesium is 1.9 this am. 1gm IV magnesium ordered. SVT Hyponatremia - -Continue with 1800ml fluid restriction Complicated UTI -Continue with ABX per hospitalist. Alcoholic cirrhosis of liver -Continue Lactulose, Xifaxan -Restart Torsemide 20mg daily -LFTS stable Orthostatic hypotension -Continue midodrine -Continue Metoprolol as BP allows. -Restart Torsemide 20mg daily 01/01/25 SVT -Normal sinus overnight -Continue Metoprolol 12.5 mg Metoprolol BID with hold parameters of less than 95 systolic Hypomagnesemia -Magnesium 1.4 -Continue Mag Ox 400mg BID Hyponatremia -Sodium 134 -Hold Spironolactone Alcoholic cirrhosis of liver -LFTS stable -Continue Lactulose, Xifaxan -Torsemide 20mg daily Orthostatic hypotension -Continue midodrine Case discussed with Dr. Santos I spent a total of 60 minutes on the date of service in preparation, delivery, and documentation of the care provided to this patient, excluding any time spent in the performance of separately billed services. Casey CLARK Department of Cardiology, [facility] This chart was completed in part utilizing Speech Voice Recognition Software. Grammatical errors, random word insertions, pronoun errors, and incomplete sentences are an occasional consequence of this system due to software limitations, ambient noise, and hardware issues. Any formal questions or concerns about the content, text, or information contained within the body of this dictation should be directly addressed to the provider for clarification. Admission and Anticipated Discharge Date Admission Date: December 27, 2024 Supervising Physician Co-Signing Physician Notes I have personally performed a history and physical examination on the patient. I have reviewed the advance practitioner's documentation, and I agree with, and take responsibility for the plan of care. No evidence of recurrent supraventricular tachycardia over the past 48 hours. Hypomagnesemia noted this a.m. after several bouts of diarrhea reported overnight. Magnesium replaced intravenously as well as with oral supplement. Serum sodium trending upward today. Torsemide restarted, spironolactone remains on hold. Recommendations: * Metoprolol 12.5 mg twice daily. * Torsemide at reduced dose, 20 mg daily. (prior outpatient dose 40mg daily) * Continue oral magnesium supplementation. * Hold spironolactone. I spent a total of 25 minutes on the date of service in preparation, delivery, and documentation of the care provided to this patient, excluding any time spent in the performance of separately billed services. Brandt Santos DO, [facility] Yadira Lora is A/O x4. Says he want to go home today as he feels better. He denies any lightheadedness, dizziness, confusion, sob, cp, or palpitations. States he is having his "normal" 8 bm's a day. Denies any blood in stools or changes. Abdomen is firm and rounded. Denies any abdominal pain. +2 edema LE BL. Sinus on tele overnight. Review of Systems Review of Systems: Unremarkable other than what is listed in HPI Physical Exam Constitutional: WD/WN, vitals as above Eyes: PERRL, conjunctivae normal, anicteric sclerae ENMT: external ear and nose normal, oropharynx normal Neck: trachea midline, no thyromegaly Respiratory: normal respiratory effort, lungs clear to auscultation Cardiovascular: +2 LE edema Gastrointestinal (Abdomen): Round distended and firm Musculoskeletal: no cyanosis or clubbing, extremities motor strength 5/5 Psychiatric: A+Ox3, euthymic affect Results & Data Vital Signs (Past 12 Hours) Vital Signs Temp Pulse Pulse Resp BP Pulse Ox O2 Del Method 01/01/25 08:17 77 18 97/63 L 98 Room Air 01/01/25 02:52 37.2 C 83 18 116/68 96 Room Air 12/31/24 23:38 37.1 C 92 H 18 119/72 97 Room Air 12/31/24 23:30 85 Laboratory Results Cardiac Enzymes 01/01/25 Range/Units 05:00 AST 41 H (13-39) U/L CBC 01/01/25 Range/Units 05:00 WBC 6.73 (4.8-10.8) K/ul RBC 2.99 L (4.70-6.10) M/uL Hgb 9.6 L (14.0-18.0) g/dl Hct 27.6 L (42.0-52.0) % Plt Count 90 L (130-400) K/uL Comprehensive Metabolic Panel 12/31/24 01/01/25 Range/Units 09:02 05:00 Sodium 132 L 134 L (136-145) mmol/L Potassium 4.2 3.4 L (3.5-5.1) mmol/L Chloride 102 104 (98-107) mmol/L Carbon Dioxide 26 26 (21-32) mmol/L BUN 23 23 (6-23) mg/dl Creatinine 1.37 1.35 (0.6-1.4) mg/dl Glucose 245 H 129 H (70-99(Fasting)) mg/dl Calcium 8.7 8.3 L (8.6-10.3) mg/dl AST 41 H (13-39) U/L ALT 37 (7-52) U/L Alkaline Phosphatase 172 H (34-104) U/L Total Protein 6.4 (6.0-8.3) gm/dl Albumin 2.3 L (3.4-5.0) gm/dl Intake and Output 12/31/24 01/01/25 01/01/25 22:59 06:59 14:59 Intake Total 940 / 1940 200 / 1940 82.5 / 82.5 Output Total 628 / 1855 852 / 1855 150 / 150 Balance 312 / 85 -652 / 85 -67.5 / -67.5 Intake: IV 82.5 / 82.5 Magnesium Sulfate / D5w 1 gm In 82.5 / 82.5 100 ml @ 50 mls/hr IV Q2H OLIVIA Rx#:[id number] Oral 940 / 1740 200 / 1740 Output: Urine 625 / 1850 850 / 1850 150 / 150 # Bowel Movements 3 / 5 2 / 5 Other: Other Intake Source sips # Unmeasured Voids 1 Weight 79.8 kg Weight Measurement Method Built in [facility] (4) Alcoholic cirrhosis of liver Ascites presence: unspecified Qualified Code(s): K70.30 - Alcoholic cirrhosis of liver without ascites
[2025-01-01] MEDS: SULFAMETHOXAZOLE/TRIMETHOPRIM DS 800/160MG TAB PO SCH (10:39)
--- NOTE | 2025-01-01 10:55 | Discharge Summary ---
Discharge Summary Date of Service January 01, 2025 Principal Dx & Hospital Course #1 = Principal Diagnosis (1) Metabolic encephalopathy: (2) Sepsis: (3) Complicated UTI (urinary tract infection): (4) Alcoholic cirrhosis of liver: (5) Acute kidney injury superimposed on stage 3a chronic kidney disease: (6) Type 2 diabetes mellitus: (7) Hypomagnesemia: Plan "Guido" is a 59 yr old M who has a significant PMH of T2DM, HTN, Alcoholic Liver Cirrhosis, Thrombocytopenia, hx of hepatic encephalopathy, legally blind and hx of anoxic brain injury who presented to ED and was found to have metabolic encephalopathy in setting of hepatic cirrhosis and UTI. Recent hospitalization 12/16/2024-12/18/2024 with acute hepatic encephalopathy and CEE due to obstructive uropathy in the setting of underlying BPH. Presented with similar symptoms at that time. Was discharged home with services through [facility]. Dumont catheter was in place at time of discharge. Metabolic Encephalopathy Hepatic Cirrhosis 2/2 alcoholism History of noncompliance with meds, confirmed by family Suspect encephalopathy likely multifactorial in setting of cirrhosis, Complicated UTI -> mentation improving, patient having adequate BMs daily Continue lactulose, Xifaxan - hold addition doses after goal of 3 bowel movements daily Renal fxn improved, resumed torsemide at 20mg daily. Dose reduced due to impaire d renal function and lower BPs Hold spironolactone until nephrology follow up Repeat CMP and Mag within 3 days Episode of SVT Noted to develop SVT overnight with HR in 170s, did not initially respond to vagal maneuver per nursing note - converted back to NSR by time of arrival to PCU Patient has remained in NSR today with HR 80-90s No other events on telemetry Magnesium replaced, goal Mg >2 and K >4 Continue Lopressor 12.5mg BID Hold Metoprolol for systolic blood pressure less than 95 Continue Magnesium and potassium supplements daily Magnesium replaced, goal Mg >2 and K >4 Repeat ECG in 1 week CEE on CKD 3 -> resolved Baseline cr 1.2-1.7 2.07 on admission->2.02 -> 1.48 Dumont removed for trial of void and he has been urinating without difficulty/retention Avoid nephrotoxic agents Sepsis, not present on admission Complicated UTI in setting of indwelling dumont, POA Suspected UTI, urine culture > 100k Acinetobacter baumannii/nosoco IV antibiotics transitioned to IV Unasyn, based on culture Transitioned to Bactrim to complete 7 day course Catheter was remvoed during admission; voiding without difficulty DM II A1c 10.1 12/13 Insulin per protocol, appreciate glycemic pharmacy management Hypomagnesemia Changed daily mag supplement to magnesium oxide 400mg bid Keep Mg >2 given bout of SVT as above Repeat Mag within 3 days Patient seen in collaboration with Dr. Esqueda. Please see addendum. Notes For Next Care Provider decompensated cirrhosis 2/2 med noncompliance, catheter associated UTI with dumont removed. Will need close lytes monitoring Medication Changes From Visit Torsemide decreased, continue mag and Kcl supplementation, continue abx for complicated uTI Admission HPI Per Admitting Provider Major Patino is a 59y/o M with PMHx significant for alcoholic cirrhosis, thrombocytopenia, DM type II, HTN, CKD stage IIIa, history of anoxic brain injury, bilateral hearing loss and congenital cataracts of both eyes with resulting legal blindness who presented to the ED via EMS after his HH nurse noticed he seemed to be more altered than his baseline mentation level and weak. History obtained from the patient, patient's sister at bedside, discussion with ED provider and associated chart review. Patient A&Ox4 with conversation. Knows situation, person, place and time/date. Recalls the prior events of today and days prior. He provides appropriate history with his sister supplementing addition information. Typically uses a walker or cane for ambulation but not very mobile at baseline. Has 3 sisters who live locally and routine check up on him. Currently lives at home alone. Missed his home medications last evening, including his lactulose and Xifaxan. Did however take his medications this morning. Had seemed confused and disoriented per HH nurse. Seemed to be repeating himself which is unusual. However, per sister at bedside, he seems to mentating at his baseline. He is very [place] at baseline and legally blind due to history of congenital cataracts of both eyes. Has chronic lateral nystagmus of both eyes per his sister. Most recently admitted on our service from 12/16/2024-12/18/2024 with acute hepatic encephalopathy and CEE superimposed on CKD stage IIIa due to obstructive uropathy in the setting of underlying BPH. Presented with similar symptoms at that time. Was discharged home with services through [facility]. Dumont catheter was in place at time of discharge. No reported chest pain, SOB or abdominal pain. Has diarrhea "once in a while" from the lactulose. Did follow-up with his PCP on 12/25/2024 per extensive chart review following his most recent admission. No medication changes were made at that visit. Did fall going in to his PCP appointment but did not sustain any injuries. Patient follows with [facility] nephrology as an outpatient. Prior issues with recurrent orthostasis requiring midodrine treatment. Torsemide and Aldactone doses adjusted and subsequently reduced last admission. Fluctuating creatinine level in the setting of various diuretic regimen changes and underlying CKD stage IIIa. Baseline creatinine variable however appears to lie around 1.2-1.7 since November 2024. Started on lactulose last admission and had his Lantus dose reduced. Admission Exam Per Admitting Provider General: Not in acute distress Eyes: Anisocoria,+some visual deficits/nystagmus (which are not new per sister) ENMT: External ear and nose normal, oropharynx normal Respiratory: Normal respiratory effort, no respiratory distress, lungs clear to auscultation, no crackles and no wheezes Cardiovascular: RRR S1 S2 Gastrointestinal (Abdomen): Abdomen is not distended, soft, non-tender to palpation, no guarding, no palpable hepatosplenomegaly, normal bowel sounds Musculoskeletal: Chronic stasis changes Neurologic: Alert and oriented x 3, No focal weakness, sensation grossly intact Psychiatric: +confusion Discharge Exam Gen: WD/WN, NAD, sitting in bedside chair, A&Ox3 HEENT: +Blind, Normocephalic, atraumatic, conjunctivae moist, sclerae anicteric, mucous membranes moist Lung: Clear to Auscultation bilaterally Heart: Regular rate, regular rhythm Abdomen: Soft, NT, ND +BS x 4 Extremities: no edema Skin: Warm, no rash Updated Medication List Medication Instructions Recorded Confirmed Type aspirin 81 mg tablet,delayed 81 mg PO DAILY 04/04/21 12/27/24 History release albuterol sulfate 90 mcg/actuation 1 puff inhalation DIRECTED PRN 11/20/24 12/27/24 History aerosol inhaler SOB/Wheezing L.acidop,casei,lactis,rham-B.lact,sudhir 1 cap PO DAILY #7 caps 12/03/24 12/27/24 Rx 625 mg (10 billion cell) capsule (Advanced Probiotic) folic acid 1 mg tablet 1 mg PO QAM #30 tabs 12/03/24 12/27/24 Rx magnesium chloride 64 mg 128 mg (2 x 64 mg) PO BID #60 tabs 12/03/24 12/27/24 Rx (magnesium chloride) tablet,delayed release (Mag 64) pantoprazole 40 mg tablet,delayed 40 mg PO DAILY #30 tabs 12/03/24 12/27/24 Rx release thiamine HCl (vitamin B1) 100 mg 100 mg PO DAILY #30 tabs 12/03/24 12/27/24 Rx tablet white petrolatum-mineral oil 1 applic EXT BID #454 grams 12/03/24 12/27/24 Rx topical cream (Dermacerin topical cream) blood sugar diagnostic (OneTouch #100 ea 12/18/24 12/27/24 Rx Ultra Test strips) blood-glucose meter #1 ea 12/18/24 12/27/24 Rx blood-glucose sensor (FreeStyle #2 ea 12/18/24 12/27/24 Rx Rj 3 Plus Sensor device) insulin glargine 100 unit/mL 10 unit (0.1 mL) SC BID 30 days 12/18/24 12/27/24 Rx subcutaneous solution (Lantus #10 mL U-100 Insulin) lactulose 20 gram oral packet 20 g PO TID #90 ea 12/18/24 12/27/24 Rx lancets 30 gauge (Onetouch Delica #200 ea 12/18/24 12/27/24 Rx Safety Lancet) midodrine 2.5 mg tablet 2.5 mg PO TID@0800,1200,1700 #90 12/18/24 12/27/24 Rx tabs pen needle, diabetic 32 gauge x #100 ea 12/18/24 12/27/24 Rx 5/32" rifaximin 550 mg tablet (Xifaxan) 550 mg PO BID #60 tabs 12/18/24 12/27/24 Rx magnesium oxide 400 mg (241.3 mg 400 mg PO BID #60 tabs 01/01/25 Rx magnesium) tablet metoprolol tartrate 25 mg tablet 12.5 mg (1/2 x 25 mg) PO BID #60 01/01/25 Rx tabs potassium chloride 20 mEq 40 meq (2 x 20 mEq) PO DAILY #60 01/01/25 12/27/24 Rx tablet,extended release(part/cryst) tabs sulfamethoxazole 800 1 tab PO Q12 #6 tabs 01/01/25 Rx mg-trimethoprim 160 mg tablet (Bactrim DS) torsemide 40 mg tablet 20 mg (1/2 x 40 mg) PO DAILY #30 01/01/25 12/27/24 Rx tabs Hospital Stay Data Consultations 12/27/24 17:50 ED Decision to Admit Stat 12/29/24 22:09 Consult Cardiology Routine Diagnostic Imagining Performed 12/27/24 15:20 CT head/brain wo con Stat 12/27/24 18:43 MRI Brain [MR brain wo con] Urgent Pending Results Patient Have Any Pending Studies at Discharge: No Discharge Instructions Given to Patient (Per Discharging Provider) MEDICATION CHANGES: Continue Bactrim twice a day x 3 days to complete UTI course. Continue Lactulose 20mg TID (hold after 3 bowel movements / day), Xifaxan 550mg BID Potassium chloride dose changed to 40mg daily Reduced torsemide dose to 20mg daily NEW: Metoprolol tartrate 12mg twice a day (hold for systolic blood pressure less than 95) Magnesium oxide 400mg twice a day HOLD: Hold spironolactone until follow up with nephrology PENDING TEST RESULTS: None RECOMMENDATIONS FOR FOLLOW-UP: Follow up with GI hepatology and nephrology. Complete antibiotic in its entirety. Continue medication regimen as scheduled aside from changes noted above. Repeat CMP and Mag labwork within [address] [facility]. OTHER INSTRUCTIONS: Seek medical attention if you have: * temperature above 101 * chest pain or trouble breathing * abdominal pain, nausea, vomiting * diarrhea, dark stools or bloody stools * any unanswered questions or concerns Call 911 if symptoms are severe. Please take good care of yourself. Call if you have any questions or problems. You can reach a [facility] hospitalist on duty at [facility] 24 hours a day by calling [phone]. Total Time Total Time Spent Total Time Spent (In Minutes): 60 Supervising Physician Co-Signing Physician Notes Patient was seen and examined at bedside as a follow-up of metabolic encephalopathy in the setting of hepatic cirrhosis secondary to alcoholism. Patient noncompliant with medication. Patient also having issues with acute renal failure since starting torsemide and Aldactone, will hold Aldactone and reduce torsemide to 20 Mg daily upon discharge. Patient to follow-up with nephrology upon discharge. Cardiology evaluated him while in hospital, appreciate recommendation. Also he will be discharged on antibiotic to complete 7-day course for his UTI. Patient hemodynamically stable at the time of bedside exam and is stable for discharge to SNF. Time spent independently: 20-minute I have seen and examined the patient and have discussed the case with the provider above. I agree with the assessment and plan as stated.
[2025-01-01 11:15] VITALS: BP 96/63; PULSE 72; RESP 17; TEMP 97.9
--- NOTE | 2025-01-02 11:25 | Coding Query ---
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 Please assist us with the question(s) below: Coding Question(s): Pt adm with metabolic encephalopathy, alcohol cirrhosis & UTI. Discharge Summary mentioned UTI in setting of urinary catheter removed during this admission. Pleaase document, if known or suspected, the etiology of the patient's UTI. Thanks for your assistance! Johnie Acosta. Physician's Response(s): Principal Diagnosis: "that condition established after study, to be chiefly responsible for occasioning the admission of the patient to the hospital for care." Co-Existing Principal Diagnosis: "when two or more diagnoses equally meet the criteria for principal diagnosis as determined by the circumstances of admission, diagnostic work up, and/or therapy provided, and the Alphabetic Index, Tabular List, or another coding guideline does not provide sequencing direction, any one of the diagnoses may be sequenced first." "When the physician has documented what appears to be a current diagnosis in the body of the record, but has not included the diagnosis in the final diagnostic statement, the physician should be asked whether the diagnosis should be added." (Source Coding [facility] 2 QTR90. p3-4) MELISSA
== END 2025-01-01 12:40 | DRG 432 ==
LOC: ED 13:55 → 2N 19:03 → SUATTDRO 19:03 → 2N 20:10 → 4W 12-29 22:06

== ENCOUNTER 2025-02-12 17:03 | Inpatient (IN) ==
[2025-02-12] MEDS: SODIUM CHLORIDE 0.9% 1,000 ML IV ONE ×2 (17:30→18:32)
[2025-02-12] MEDS: NOREPINEPHRINE/D5W 4 MG/250 ML PLCT IV SCH (17:37)
[2025-02-12] MEDS: STAT IV Infusion **Titration per Protocol STA (17:37)
[2025-02-12] MEDS: NOREPINEPHRINE/D5W 4 MG/250 ML IV ONE (17:40)
[2025-02-12 17:49] LABS: Basophils % (auto) 1.2 %; Eosinophils % (auto) 1.2 %; Immature Granulocytes # (auto) 0.03 K/uL (0.01-0.20); Immature Granulocytes % (auto) 0.4 %; Lymphocytes # (auto) 3.21 K/uL (1.20-3.40); Lymphocytes % (auto) 38.4 %; Mean Corpuscular Hemoglobin 31.2 pg (25.0-34.0); Mean Corpuscular Hgb Conc 33.3 g/dL (32.0-36.0); Mean Corpuscular Volume 93.5 fL (80.0-100.0); Mean Platelet Volume 11.4 fL (9.4-12.4); Monocytes # (auto) 0.88 K/uL (0.11-0.59); Monocytes % (auto) 10.5 %; Neutrophils # (auto) 4.05 K/uL (1.40-6.50); Neutrophils % (auto) 48.3 %; Platelet Count 99 K/uL (130-400); RDW Coefficient of Variation 13.9 % (11.5-14.5); RDW Standard Deviation 46.5 fL (36.4-46.3); Red Blood Count 3.85 M/uL (4.70-6.10); White Blood Count 8.37 K/ul (4.8-10.8)
[2025-02-12 17:49] LABS: iSTAT Creatinine 3.9 mg/dl (0.6-1.3); iSTAT Hemoglobin 12.2 g/dl (14.0-18.0); iSTAT Ionized Calcium 1.14 mmol/l (1.12-1.32); iSTAT Potassium 4.5 mmol/L (3.3-5.0)
[2025-02-12 18:04] LABS: BUN Creatinine Ratio 10.8 (10-20); Bilirubin Direct 0.5 mg/dl (0-0.2); Bilirubin,Total 1.4 mg/dl (0.2-1.0); Calcium 9.6 mg/dl (8.6-10.3); Potassium 4.4 mmol/L (3.5-5.1); Total Protein 7.8 gm/dl (6.0-8.3)
[2025-02-12 18:10] LABS: Troponin I High Sensitivity 9.1 pg/ml (0-20)
--- NOTE | 2025-02-12 18:14 | CT Scan Report ---
EXAMINATION: CT of the chest, abdomen and pelvis performed without the administration of IV contrast TECHNIQUE: Helical CT images from the lung apices through the symphysis pubis were obtained without contrast. Coronal and sagittal reformatted images were generated at a workstation for further assessment. Dose reduction techniques were achieved by using automatic exposure control and/or adjustment of mA and/or kV according to patient size and/or use of iterative reconstruction technique. COMPARISON: None HISTORY: Pain FINDINGS: Lines and tubes: None Mediastinum/Neck Base: No thyroid nodules. Central tracheobronchial tree is patent. Heart size is normal. No pericardial effusion. Normal thoracic vasculature. Aortic valve calcification. No thoracic lymphadenopathy. Lungs: No consolidation. No pleural effusion or pneumothorax. Liver: Cirrhotic morphology. no suspicious liver lesions. Gallbladder: No gallstones. No evidence of acute cholecystitis. Spleen: Normal size. Pancreas: No suspicious pancreatic lesions. The pancreatic duct is not dilated. Adrenal glands: No adrenal nodules. Kidneys: No hydronephrosis or obstructing renal stones. Atrophic appearance of the right kidney. Bladder / Pelvic organs: Unremarkable. Bowel: No bowel obstruction. No abnormal bowel wall thickening. The appendix is unremarkable. Lymph nodes: No retroperitoneal, mesenteric, or pelvic lymphadenopathy. Peritoneum / Retroperitoneum: No free fluid or air within the abdomen. Vessels: No infrarenal aortic aneurysm. Bones and soft tissues: Degenerative changes of the spine. No acute osseous normality. Avascular necrosis of the right femoral head. IMPRESSION: No acute finding in the chest, abdomen or pelvis. There is avascular necrosis of the right femoral head without subchondral collapse. The lungs are clear. Electronically signed by Casey Sutherland 02-12-2025 6:14 PM
--- NOTE | 2025-02-12 18:29 | XRay Report ---
Clinical History: Pain. 4 views of the pelvis and right hip are submitted for review. Findings: No fracture or dislocation is seen. No significant arthritic changes are noted. No other osseous abnormality is identified. There are no radiopaque foreign bodies. Impression: Unremarkable radiographs of the pelvis and right hip Electronically signed by Demarco Bolton 02-12-2025 6:29 PM
[2025-02-12 19:10] LABS: Appearance Urine Clear (Clear); Bilirubin Urine Negative (Negative); Blood Urine Negative (Negative); Color Urine Yellow; Glucose Urine UA Negative (Negative); Ketones Urine Negative (Negative); Leukocyte Esterase Urine Negative (Negative); Nitrite Urine Negative (Negative); Protein Urine Negative (Negative); Specific Gravity Urine 1.007 (1.000-1.030); Urobilinogen Urine Negative (Negative)
--- NOTE | 2025-02-12 19:42 | History & Physical Report ---
Date of Service February 12, 2025 Assessment & Plan (1) Acute kidney injury superimposed on stage 3a chronic kidney disease: (2) Orthostatic hypotension: (3) Hypotension: (4) Avascular necrosis of bone of hip: (5) Right hip pain: (6) NSVT (nonsustained ventricular tachycardia): (7) Alcoholic cirrhosis of liver: (8) Type 2 diabetes mellitus: Plan: HPI, PE, home med rec completed by Bre Delaney PA-C Assessment and Plan per Dr Meehan. See addendum. History of Present Illness Chief Complaint: hip pain Primary Care Provider: Luly Guajardo PA-C Patient is 59-year-old man with PMH alcoholic cirrhosis, thrombocytopenia, DM II, CKD III, chronic hyponatremia, orthostasis on midodrine, NSVT, congenital cataracts, bilateral hearing loss, and others listed below presented to ER with complaint of right hip pain. Per inpatient chart review patient with history recurrent hospitalizations past couple of months. November 2024 hospitalization for metabolic encephalopathy, staph hominis bacteremia, CEE. 12/16/24- acute hepatic encephalopathy, CEE on CKD III due to obstructive uropathy in setting of BPH. 12/27/2024-01/01/2025 metabolic encephalopathy secondary to cirrhosis and complicated UTI. 02/04/2025 nephrology appointment and had noted low blood pressure with orthostasis and midodrine increased to 5 mg 3 times a day and torsemide lowered to 20 mg twice daily. His KCl supplement decreased to 20 mEq daily from 40 twice daily secondary to K: 5.2. Spironolactone was continued and magnesium supplement was continued. Patient poor historian and difficult to determine how long having right hip pain but states past couple of days right hip pain, worse with ambulating and feels having trouble walking secondary to pain. Denies fall. Denies known injury. Denies right leg pain or back pain or paresthesias. He feels his legs are swollen. Patient feels he is urinating and emptying bladder and denies dysuria. Reports drinks 2-4 beer daily. States last drank this morning and drank 1.5 cans beer. He denies any other complaint currently. Denies known fever, N/V/D/C, WITT, dizziness, syncope, CP, SOB, palpitations, cough, rhinorrhea, abdominal pain. Outpatient chart review. 02/04/25 K: 5.2, Cr: 1.8, Hgb: 11.7 Allergies Allergy/AdvReac Type Severity Reaction Status Date / Time No Known Allergies Allergy Verified 04/04/21 18:18 Home Medications Medication Instructions Recorded Confirmed Type aspirin 81 mg tablet,delayed 81 mg PO DAILY 04/04/21 02/12/25 History release albuterol sulfate 90 mcg/actuation 2 puff inhalation Q4H PRN 11/20/24 02/12/25 History aerosol inhaler SOB/Wheezing L.acidop,casei,lactis,rham-B.lact,sudhir 1 cap PO DAILY #7 caps 12/03/24 02/12/25 Rx 625 mg (10 billion cell) capsule (Advanced Probiotic) folic acid 1 mg tablet 1 mg PO QAM #30 tabs 12/03/24 02/12/25 Rx magnesium chloride 64 mg 128 mg (2 x 64 mg) PO BID #60 tabs 12/03/24 02/12/25 Rx (magnesium chloride) tablet,delayed release (Mag 64) thiamine HCl (vitamin B1) 100 mg 100 mg PO DAILY #30 tabs 12/03/24 02/12/25 Rx tablet white petrolatum-mineral oil 1 applic EXT BID #454 grams 12/03/24 02/12/25 Rx topical cream (Dermacerin topical cream) blood sugar diagnostic (ET Solar GroupTouch #100 ea 12/18/24 02/12/25 Rx Ultra Test strips) blood-glucose meter #1 ea 12/18/24 02/12/25 Rx blood-glucose sensor (FreeStyle #2 ea 12/18/24 02/12/25 Rx Rj 3 Plus Sensor device) insulin glargine 100 unit/mL 10 unit (0.1 mL) SC BID 30 days 12/18/24 02/12/25 Rx subcutaneous solution (Lantus #10 mL U-100 Insulin) lancets 30 gauge (ET Solar Grouptouch Delica #200 ea 12/18/24 02/12/25 Rx Safety Lancet) pen needle, diabetic 32 gauge x #100 ea 12/18/24 02/12/25 Rx 5/32" rifaximin 550 mg tablet (Xifaxan) 550 mg PO BID #60 tabs 12/18/24 02/12/25 Rx magnesium oxide 400 mg (241.3 mg 400 mg PO BID #60 tabs 01/01/25 02/12/25 Rx magnesium) tablet blood sugar diagnostic (OneTouch 02/12/25 02/12/25 History Ultra Test strips) lactulose 10 gram/15 mL oral 30 g PO TID 02/12/25 02/12/25 History solution midodrine 5 mg tablet 5 mg PO TID 02/12/25 02/12/25 History pantoprazole 40 mg tablet,delayed 40 mg PO QAM 02/12/25 02/12/25 History release potassium chloride 20 mEq 20 meq PO DAILY 02/12/25 02/12/25 History tablet,extended release(part/cryst) spironolactone 25 mg tablet 25 mg PO DAILY 02/12/25 02/12/25 History torsemide 20 mg tablet 20 mg PO BID 02/12/25 02/12/25 History Past Med/Surg History Problem List (Updated 02/13/25 @ 00:59 by Denver Pisano MD) Avascular necrosis of bone of right hip (Acute) Adrenal insufficiency Shock NSVT (nonsustained ventricular tachycardia) Avascular necrosis of bone of hip Right hip pain SVT (supraventricular tachycardia) Complicated UTI (urinary tract infection) Alcoholic cirrhosis of liver Acute kidney injury superimposed on stage 3a chronic kidney disease Confusion (Acute) Noncompliance (Acute) Hypomagnesemia (Acute) Generalized weakness (Acute) Orthostatic hypotension 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 hyperplasia Acute hepatic encephalopathy Hypomagnesemia (Acute) Type 2 diabetes mellitus Urinary retention Hyperammonemia (Acute) CEE (acute kidney injury) (Acute) Altered mental status (Acute) Metabolic encephalopathy Positive blood culture Cirrhosis Sepsis Vomiting (Acute) Elevated lactic acid level (Acute) Alcohol abuse (Acute) Hypotension (Acute) Medical History Congenital cataract of both eyes Hypertension BPH NOS w ur obs/LUTS Renal calculi Retained ureteral stent Alcohol dependence Surgical History S/P ureteral stent placement S/P lens implant Family History Other Breast cancer Diabetes Heart disease Social History Smoking Status: Never smoker Second Hand Exposure: No; Do You Dip or Chew Tobacco: Yes; Hx Alcohol Use: Yes Alcohol type: beer and hard liquor Hx Substance Use: No Preferred Language: [place] Communication Ability: Effective Moisture Meter Reader Required: No Beliefs That Will Affect Care: None Current Living Situation: Alone Current Living Situation Comment: Lives in Apartment by himself. Family does check on him. current occupational status: disabled Feels Safe at Home: Yes Assistive Devices: Cane, Glasses and Hearing Aid - Bilateral Review of Systems Review of Systems: All systems reviewed & are unremarkable except as noted in HPI & below Physical Exam Physical Exam: General: no acute distress lying in bed, Chronic ill appearing elderly male Head: normocephalic, atraumatic Eyes: +cataract bilaterally, conjunctiva non-injected, anicteric ENT: +hard of hearing, +hearing aids in place, normal inspection external ears, nose, mucous membranes moist Neck: supple, trachea midline Lungs: clear, no respiratory distress, no wheezing/rhonchi/rales CV: RRR, 1+ pretibial edema Abd: normal BS, soft, non-tender Ext: no cyanosis, no calf tenderness Neuro: A&O x 3, no focal deficits noted, normal affect Skin: warm, dry, bilateral anterior lower legs with multiple scabs Results & Data Results & Data Vital Signs (Past 12 Hours) Vital Signs Temp Pulse Pulse Resp BP BP Pulse Ox 02/12/25 19:16 62 16 115/67 100 02/12/25 19:10 62 16 103/72 100 02/12/25 19:05 63 20 108/66 100 02/12/25 19:00 61 16 102/65 99 02/12/25 19:00 59 L 19 102/65 100 02/12/25 18:36 81 15 126/56 L 100 02/12/25 18:30 73 17 119/77 99 02/12/25 18:27 57 L 15 104/60 100 02/12/25 18:25 104/60 02/12/25 18:22 100/62 02/12/25 18:16 59 L 17 95/54 L 99 02/12/25 18:15 95/54 L 02/12/25 18:08 84/54 L 02/12/25 18:02 62 16 89/50 L 99 02/12/25 17:46 63 16 91/55 L 99 02/12/25 17:39 66 15 71/42 L 98 02/12/25 17:34 72/39 L 02/12/25 17:34 69 16 72/39 L 97 02/12/25 17:29 73 13 63/36 L 98 02/12/25 17:27 67 02/12/25 17:06 36.3 C L 76 18 74/42 L 97 O2 Del Method 02/12/25 19:16 Room Air 02/12/25 19:10 Room Air 02/12/25 19:05 Room Air 02/12/25 19:00 Room Air 02/12/25 19:00 Room Air 02/12/25 18:36 Room Air 02/12/25 18:30 02/12/25 18:27 02/12/25 18:25 02/12/25 18:22 02/12/25 18:16 Room Air 02/12/25 18:15 02/12/25 18:08 02/12/25 18:02 Room Air 02/12/25 17:46 Room Air 02/12/25 17:39 Room Air 02/12/25 17:34 02/12/25 17:34 Room Air 02/12/25 17:29 Room Air 02/12/25 17:27 02/12/25 17:06 Room Air Laboratory Results Short CBC 02/12/25 Range/Units 17:20 WBC 8.37 (4.8-10.8) K/ul Hgb 12.0 L (14.0-18.0) g/dl Hct 36.0 L (42.0-52.0) % Plt Count 99 L (130-400) K/uL BMP 02/12/25 17:20 Sodium 138 Potassium 4.4 Chloride 104 Carbon Dioxide 23 BUN 40 H Creatinine 3.71 H Glucose 184 H Calcium 9.6 Liver Function 02/12/25 Range/Units 17:20 Total Bilirubin 1.4 H (0.2-1.0) mg/dl Direct Bilirubin 0.5 H (0-0.2) mg/dl AST 38 (13-39) U/L ALT 26 (7-52) U/L Alkaline Phosphatase 179 H (34-104) U/L Albumin 2.9 L (3.4-5.0) gm/dl Urine 02/12/25 Range/Units 18:54 Urine Color Yellow Urine Appearance Clear (Clear) Urine pH 6.0 (4.5-7.5) Ur Specific [place] 1.007 (1.000-1.030) Urine Protein Negative (Negative) Urine Glucose (UA) Negative (Negative) Diagnostic Findings Hip/Pelvis X-Ray 02/12/25 17:28 Clinical History: Pain. 4 views of the pelvis and right hip are submitted for review. Findings: No fracture or dislocation is seen. No significant arthritic changes are noted. No other osseous abnormality is identified. There are no radiopaque foreign bodies. Impression: Unremarkable radiographs of the pelvis and right hip Electronically signed by Demarco Bolton 02-12-2025 6:29 PM Abdomen/Pelvis CT 02/12/25 17:41 EXAMINATION: CT of the chest, abdomen and pelvis performed without the administration of IV contrast TECHNIQUE: Helical CT images from the lung apices through the symphysis pubis were obtained without contrast. Coronal and sagittal reformatted images were generated at a workstation for further assessment. Dose reduction techniques were achieved by using automatic exposure control and/or adjustment of mA and/or kV according to patient size and/or use of iterative reconstruction technique. COMPARISON: None HISTORY: Pain FINDINGS: Lines and tubes: None Mediastinum/Neck Base: No thyroid nodules. Central tracheobronchial tree is patent. Heart size is normal. No pericardial effusion. Normal thoracic vasculature. Aortic valve calcification. No thoracic lymphadenopathy. Lungs: No consolidation. No pleural effusion or pneumothorax. Liver: Cirrhotic morphology. no suspicious liver lesions. Gallbladder: No gallstones. No evidence of acute cholecystitis. Spleen: Normal size. Pancreas: No suspicious pancreatic lesions. The pancreatic duct is not dilated. Adrenal glands: No adrenal nodules. Kidneys: No hydronephrosis or obstructing renal stones. Atrophic appearance of the right kidney. Bladder / Pelvic organs: Unremarkable. Bowel: No bowel obstruction. No abnormal bowel wall thickening. The appendix is unremarkable. Lymph nodes: No retroperitoneal, mesenteric, or pelvic lymphadenopathy. Peritoneum / Retroperitoneum: No free fluid or air within the abdomen. Vessels: No infrarenal aortic aneurysm. Bones and soft tissues: Degenerative changes of the spine. No acute osseous normality. Avascular necrosis of the right femoral head. IMPRESSION: No acute finding in the chest, abdomen or pelvis. There is avascular necrosis of the right femoral head without subchondral collapse. The lungs are clear. Electronically signed by Casey Sutherland 02-12-2025 6:[address] 02/12/25 17:46 EXAMINATION: CT of the chest, abdomen and pelvis performed without the administration of IV contrast TECHNIQUE: Helical CT images from the lung apices through the symphysis pubis were obtained without contrast. Coronal and sagittal reformatted images were generated at a workstation for further assessment. Dose reduction techniques were achieved by using automatic exposure control and/or adjustment of mA and/or kV according to patient size and/or use of iterative reconstruction technique. COMPARISON: None HISTORY: Pain FINDINGS: Lines and tubes: None Mediastinum/Neck Base: No thyroid nodules. Central tracheobronchial tree is patent. Heart size is normal. No pericardial effusion. Normal thoracic vasculature. Aortic valve calcification. No thoracic lymphadenopathy. Lungs: No consolidation. No pleural effusion or pneumothorax. Liver: Cirrhotic morphology. no suspicious liver lesions. Gallbladder: No gallstones. No evidence of acute cholecystitis. Spleen: Normal size. Pancreas: No suspicious pancreatic lesions. The pancreatic duct is not dilated. Adrenal glands: No adrenal nodules. Kidneys: No hydronephrosis or obstructing renal stones. Atrophic appearance of the right kidney. Bladder / Pelvic organs: Unremarkable. Bowel: No bowel obstruction. No abnormal bowel wall thickening. The appendix is unremarkable. Lymph nodes: No retroperitoneal, mesenteric, or pelvic lymphadenopathy. Peritoneum / Retroperitoneum: No free fluid or air within the abdomen. Vessels: No infrarenal aortic aneurysm. Bones and soft tissues: Degenerative changes of the spine. No acute osseous normality. Avascular necrosis of the right femoral head. IMPRESSION: No acute finding in the chest, abdomen or pelvis. There is avascular necrosis of the right femoral head without subchondral collapse. The lungs are clear. Electronically signed by Casey Sutherland 02-12-2025 6:14 PM Supervising Physician Co-Signing Physician Notes IM ATTENDING : Patient seen and examined. History obtained from patient, family, and records. Concur with salient points upon review of preceding documentation by Ms. Bre Delaney PA-C. In addition, cumbersome to obtain history from patient secondary to marked hearing impairment/intellectual impairment. Patient sister does not feel patient able to care for self at home. I take responsibility for plan of care below. FINAL ASSESSMENT AND PLAN as follows : Persistent hypotension likely from hypovolemia ARF on CKD secondary to illness (baseline creatinine up to 1.8 as per outpatient Nephrology records) History hypotension on midodrine, possible underlying DM autonomic neuropathy, ? Midodrine noncompliance ? Distributive etio given minimal bilateral LE cellulitis with history skin picking as per patient sister, Right hip pain, avascular necrosis on CT History PSVT Alcohol cirrhosis, no overt decompensation DM2, insulin requiring, suboptimal control as of recent hemoglobin A1c of 10 from November 2024 Intellectual impairment/anoxic brain injury as per records Recurrent admissions, likely functional disability, patient has poor insight on medical issues as per provider notes. Admit to ICU Continue Levophed Titrate midodrine Monitor creatinine response to IVF, hold home diuretics for now until creatinine back to baseline Nephrology consult re: ARF on CKD (Patient known to [facility].) CS, Doxycycline for possible LE cellulitis Orthopedics consult Re: Right hip pain Basal bolus insulin adjusted for decreased renal function, ISS BG goal 140-180 at the ICU, carb count coverage AWSS at risk protocol, DT precautions PT OT eval once medically stable May need placement. DVT prophylaxis. SCDs Re: Thrombocytopenia Full code I spent a total of 40 minutes coordinating, documenting, and providing care for this patientexcludingtime spent by another provider/QHP. Text document was generated using expressor software voice recognition software. It may contain grammatical or spelling errors. Kindly contact undersigned for clarification of any documentation item in question. (7) Alcoholic cirrhosis of liver Ascites presence: unspecified Qualified Code(s): K70.30 - Alcoholic cirrhosis of liver without ascites (8) Type 2 diabetes mellitus Diabetes mellitus complication status: with other specified complication Diabetes mellitus metaphysician insulin use: with metaphysician use Qualified Code(s): E11.69 - Type 2 diabetes mellitus with other specified complication; Z79.4 - long-term (current) use of insulin
[2025-02-12] MEDS: THIAMINE HCL 100 MG in SYRINGE 9 ML IV STA (19:54)
[2025-02-12] MEDS: MIDODRINE HCL 2.5 MG TAB PO STA ×2 (19:55→21:26)
[2025-02-12] MEDS: LACTATED RINGER'S 1,000 ML IV ONE (19:56)
[2025-02-12] MEDS: PLASMA-LYTE A 500 ML IV ONE (20:09)
--- NOTE | 2025-02-12 20:43 | Emergency Department Note ---
Impression & Plan Hypotension, Elevated lactic acid level, CEE (acute kidney injury), Avascular necrosis of bone of right hip ED Provider Note NAME: MOY CRABTREE AGE: 59 SEX: M : 1965 ARRIVES VIA: Walk-In INFORMANT: Patient, ED PROVIDER(S): Denver Pisano MD CHIEF COMPLAINT: Right hip pain] HPI: This is a 59-year-old presented right hip pain. Patient notes that he has a pain for a few days but notes that he is unable to walk today. He is rather slow to respond otherwise. He reports he feels well otherwise. No chest pain, shortness breath, fever, chills, nausea or vomiting. He notes you have a long history of open sores to his anterior lower extremities. ROS: See above HPI for pertinent positives & negatives. A total of 10 systems reviewed and were otherwise negative. PAST MEDICAL HISTORY: See Below PAST SURGICAL HISTORY: See Below FAMILY HISTORY: See Below SOCIAL HISTORY: See Below HOME MEDICATIONS: See Below ALLERGIES: See Below VITALS: See Below PHYSICAL EXAMINATION: General: Poor hygiene, disheveled and chronically ill-appearing Head: Normocephalic and atraumatic Eyes: Normal inspection, extraocular muscles intact Ear, nose, throat: Normal external exam Neck: Normal range of motion Respiratory: lungs clear to auscultation bilaterally Cardiovascular: Regular rate/rhythm, no murmur GI: soft, nontender, no guarding or rebound Extremities: Areas of excoriation/scabbing/dried blood to the anterior shins bilaterally, 2+ pulses Neuro: The patient awake and alert, appropriately conversive, no focal deficits, symmetric faces Skin: Warm, dry, and intact MEDICAL DECISION MAKING: This is a 59-year-old male present for right hip pain. Patient has right hip pain but is able to move all extremities. Surprisingly he is very hypotensive. Initial pressures were 70s over 40s. This then downtrended to 60s over 30s. Patient started on fluids with minimal relief initially. Patient on Levophed rather quickly due to extremely low blood pressure. He otherwise has no symptoms from this. He states he feels no fever, chills. No signs of sepsis clinically, is not tachycardic otherwise. Bedside echo reveals no pericardial effusion. But is otherwise limited due to patient positioning. - Patient has no significant signs of fluid overload at this time. - Will do CT of the chest/abdomen to rule out any current process - Otherwise patient's flkyy-gl-fzhw does reveal an elevated creatinine at 3.[address] imaging. - CT imaging reveals no acute explanation for patient's hypotension, no signs of sepsis. There is an avascular necrosis of the right hip which explain his current pain. - Less patient has improving blood pressure after 2 L and continue vasopressors, Levophed at 0.7. - Patient's blood work overall returns well with stable/improving anemia, no white count. Electrolytes within normal limits however there is significant creatinine elevation at 3.71, this is new for about 1 month ago his creatinine was 1.07. -No signs of UTI on urinalysis - At this time we will admit the patient for suspected CEE, dehydration and avascular necrosis of the right hip. Differential diagnosis: Dehydration, sepsis, cardiogenic shock, hypovolemia, Diagnostics interpreted by me: ECG: ECG independently interpreted by me with normal sinus rhythm, rate of 76, normal axis, normal DE, normal QRS, normal QTc, no ST segment elevations consistent with STEMI criteria Cardiac Monitoring: An order was placed for continuous cardiac monitoring. The monitor shows a rate of 76 with sinus rhythm. Critical Care Note: I have personally spent 45 minutes of critical care time in the direct management of this patient. This includes bedside care, interpretation of diagnostic studies, and testing, discussion with consultants, patient, and family members, and other required patient management activities. This 45 minutes is in excess of all separately billable procedures. Past Med/Surg History Problem List (Updated 02/13/25 @ 00:59 by Denver Pisano MD) Avascular necrosis of bone of right hip (Acute) Adrenal insufficiency Shock NSVT (nonsustained ventricular tachycardia) Avascular necrosis of bone of hip Right hip pain SVT (supraventricular tachycardia) Complicated UTI (urinary tract infection) Alcoholic cirrhosis of liver Acute kidney injury superimposed on stage 3a chronic kidney disease Confusion (Acute) Noncompliance (Acute) Hypomagnesemia (Acute) Generalized weakness (Acute) Orthostatic hypotension 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 hyperplasia Acute hepatic encephalopathy Hypomagnesemia (Acute) Type 2 diabetes mellitus Urinary retention Hyperammonemia (Acute) CEE (acute kidney injury) (Acute) Altered mental status (Acute) Metabolic encephalopathy Positive blood culture Cirrhosis Sepsis Vomiting (Acute) Elevated lactic acid level (Acute) Alcohol abuse (Acute) Hypotension (Acute) Medical History Congenital cataract of both eyes Hypertension BPH NOS w ur obs/LUTS Renal calculi Retained ureteral stent Alcohol dependence Surgical History S/P ureteral stent placement S/P lens implant Family History Other Breast cancer Diabetes Heart disease Social History Smoking Status: Never smoker Second Hand Exposure: No; Do You Dip or Chew Tobacco: Yes; Hx Alcohol Use: Yes Alcohol type: beer and hard liquor Hx Substance Use: No Preferred Language: Nauruan Communication Ability: Effective Online Project Manager Required: No Beliefs That Will Affect Care: None Current Living Situation: Alone Current Living Situation Comment: Lives in Apartment by himself. Family does check on him. current occupational status: disabled Feels Safe at Home: Yes Assistive Devices: Cane, Glasses and Hearing Aid - Bilateral Allergies Allergies Allergy/AdvReac Type Severity Reaction Status Date / Time No Known Allergies Allergy Verified 04/04/21 18:18 Home Meds Home Medications Medication Instructions Recorded Confirmed aspirin 81 mg tablet,delayed 81 mg PO DAILY 04/04/21 02/12/25 release albuterol sulfate 90 mcg/actuation 2 puff inhalation Q4H PRN 11/20/24 02/12/25 aerosol inhaler SOB/Wheezing blood sugar diagnostic (OneTouch 02/12/25 02/12/25 Ultra Test strips) lactulose 10 gram/15 mL oral 30 g PO TID 02/12/25 02/12/25 solution midodrine 5 mg tablet 5 mg PO TID 02/12/25 02/12/25 pantoprazole 40 mg tablet,delayed 40 mg PO QAM 02/12/25 02/12/25 release potassium chloride 20 mEq 20 meq PO DAILY 02/12/25 02/12/25 tablet,extended release(part/cryst) spironolactone 25 mg tablet 25 mg PO DAILY 02/12/25 02/12/25 torsemide 20 mg tablet 20 mg PO BID 02/12/25 02/12/25 Previous Rx's Medication Instructions Recorded L.acidop,casei,lactis,rham-B.lact,sudhir 1 cap PO DAILY #7 caps 12/03/24 625 mg (10 billion cell) capsule (Advanced Probiotic) folic acid 1 mg tablet 1 mg PO QAM #30 tabs 12/03/24 magnesium chloride 64 mg 128 mg (2 x 64 mg) PO BID #60 tabs 12/03/24 (magnesium chloride) tablet,delayed release (Mag 64) thiamine HCl (vitamin B1) 100 mg 100 mg PO DAILY #30 tabs 12/03/24 tablet white petrolatum-mineral oil 1 applic EXT BID #454 grams 12/03/24 topical cream (Dermacerin topical cream) blood sugar diagnostic (BFKWTouch #100 ea 12/18/24 Ultra Test strips) blood-glucose meter #1 ea 12/18/24 blood-glucose sensor (FreeStyle #2 ea 12/18/24 Rj 3 Plus Sensor device) insulin glargine 100 unit/mL 10 unit (0.1 mL) SC BID 30 days 12/18/24 subcutaneous solution (Lantus #10 mL U-100 Insulin) lancets 30 gauge (BFKWtouch Delica #200 ea 12/18/24 Safety Lancet) pen needle, diabetic 32 gauge x #100 ea 12/18/24 5/32" rifaximin 550 mg tablet (Xifaxan) 550 mg PO BID #60 tabs 12/18/24 magnesium oxide 400 mg (241.3 mg 400 mg PO BID #60 tabs 01/01/25 magnesium) tablet Results & Data (ED) Vital Signs Vital Signs - 24 hr 02/12/25 17:06 02/12/25 17:27 02/12/25 17:29 Temperature 36.3 C L Temperature Source Temporal Artery Scan Pulse Rate 76 67 73 Pulse Rate [Apical] Pulse Rate from SpO2 Sensor Pulse Rhythm Regular Pulse Strength Normal Respiratory Rate 18 13 Respiratory Effort / Characteristics Non-Labored Spontaneous Respiratory Depth Normal Respiratory Pattern Blood Pressure 74/42 L 63/36 L Blood Pressure [Left Arm] Blood Pressure Mean 52 49 Blood Pressure Mean [Left Arm] Blood Pressure Position Sitting Blood Pressure Position [Left Arm] Pulse Oximetry 97 98 Oxygen Delivery Method Room Air Room Air Sepsis Recent Fever Within 48 Hours No Sepsis New/Unexplained Change in Mental Status N/A Sepsis Action Taken by Nursing No Action Required 02/12/25 17:34 02/12/25 17:34 02/12/25 17:39 Temperature Temperature Source Pulse Rate 66 Pulse Rate [Apical] 69 Pulse Rate from SpO2 Sensor 66 Pulse Rhythm Pulse Strength Respiratory Rate 16 15 Respiratory Effort / Characteristics Non-Labored Spontaneous Respiratory Depth Normal Respiratory Pattern Blood Pressure 72/39 L 71/42 L Blood Pressure [Left Arm] 72/39 L Blood Pressure Mean 48 51 Blood Pressure Mean [Left Arm] 50 Blood Pressure Position Blood Pressure Position [Left Arm] Pulse Oximetry 97 98 Oxygen Delivery Method Room Air Room Air Sepsis Recent Fever Within 48 Hours Sepsis New/Unexplained Change in Mental Status Sepsis Action Taken by Nursing 02/12/25 17:46 02/12/25 18:02 02/12/25 18:08 Temperature Temperature Source Pulse Rate Pulse Rate [Apical] 63 62 Pulse Rate from SpO2 Sensor Pulse Rhythm Pulse Strength Respiratory Rate 16 16 Respiratory Effort / Characteristics Non-Labored Spontaneous Non-Labored Spontaneous Respiratory Depth Normal Normal Respiratory Pattern Regular Blood Pressure 84/54 L Blood Pressure [Left Arm] 91/55 L 89/50 L Blood Pressure Mean 60 Blood Pressure Mean [Left Arm] 67 63 Blood Pressure Position Blood Pressure Position [Left Arm] Semi-fowlers Pulse Oximetry 99 99 Oxygen Delivery Method Room Air Room Air Sepsis Recent Fever Within 48 Hours Sepsis New/Unexplained Change in Mental Status Sepsis Action Taken by Nursing 02/12/25 18:15 02/12/25 18:16 02/12/25 18:22 Temperature Temperature Source Pulse Rate Pulse Rate [Apical] 59 L Pulse Rate from SpO2 Sensor Pulse Rhythm Pulse Strength Respiratory Rate 17 Respiratory Effort / Characteristics Non-Labored Spontaneous Respiratory Depth Normal Respiratory Pattern Regular Blood Pressure 95/54 L 100/62 Blood Pressure [Left Arm] 95/54 L Blood Pressure Mean 61 77 Blood Pressure Mean [Left Arm] 67 Blood Pressure Position Blood Pressure Position [Left Arm] Pulse Oximetry 99 Oxygen Delivery Method Room Air Sepsis Recent Fever Within 48 Hours Sepsis New/Unexplained Change in Mental Status Sepsis Action Taken by Nursing 02/12/25 18:25 02/12/25 18:27 02/12/25 18:30 Temperature Temperature Source Pulse Rate 57 L 73 Pulse Rate [Apical] Pulse Rate from SpO2 Sensor 57 L 62 Pulse Rhythm Pulse Strength Respiratory Rate 15 17 Respiratory Effort / Characteristics Respiratory Depth Respiratory Pattern Blood Pressure 104/60 104/60 119/77 Blood Pressure [Left Arm] Blood Pressure Mean 69 74 91 Blood Pressure Mean [Left Arm] Blood Pressure Position Blood Pressure Position [Left Arm] Pulse Oximetry 100 99 Oxygen Delivery Method Sepsis Recent Fever Within 48 Hours Sepsis New/Unexplained Change in Mental Status Sepsis Action Taken by Nursing 02/12/25 18:36 02/12/25 19:00 02/12/25 19:00 Temperature Temperature Source Pulse Rate 81 61 Pulse Rate [Apical] 59 L Pulse Rate from SpO2 Sensor 78 Pulse Rhythm Pulse Strength Respiratory Rate 15 19 16 Respiratory Effort / Characteristics Non-Labored Spontaneous Respiratory Depth Normal Respiratory Pattern Regular Blood Pressure 126/56 L 102/65 Blood Pressure [Left Arm] 102/65 Blood Pressure Mean 79 81 Blood Pressure Mean [Left Arm] 77 Blood Pressure Position Blood Pressure Position [Left Arm] Semi-fowlers Pulse Oximetry 100 100 99 Oxygen Delivery Method Room Air Room Air Room Air Sepsis Recent Fever Within 48 Hours Sepsis New/Unexplained Change in Mental Status Sepsis Action Taken by Nursing 02/12/25 19:05 02/12/25 19:10 02/12/25 19:16 Temperature Temperature Source Pulse Rate 63 62 62 Pulse Rate [Apical] Pulse Rate from SpO2 Sensor Pulse Rhythm Pulse Strength Respiratory Rate 20 16 16 Respiratory Effort / Characteristics Respiratory Depth Respiratory Pattern Blood Pressure 108/66 103/72 115/67 Blood Pressure [Left Arm] Blood Pressure Mean 82 95 92 Blood Pressure Mean [Left Arm] Blood Pressure Position Blood Pressure Position [Left Arm] Pulse Oximetry 100 100 100 Oxygen Delivery Method Room Air Room Air Room Air Sepsis Recent Fever Within 48 Hours Sepsis New/Unexplained Change in Mental Status Sepsis Action Taken by Nursing 02/12/25 19:25 02/12/25 19:32 02/12/25 19:41 Temperature Temperature Source Pulse Rate 58 L 87 Pulse Rate [Apical] Pulse Rate from SpO2 Sensor Pulse Rhythm Pulse Strength Respiratory Rate 18 20 Respiratory Effort / Characteristics Respiratory Depth Respiratory Pattern Blood Pressure 127/63 130/89 120/65 Blood Pressure [Left Arm] Blood Pressure Mean 87 105 79 Blood Pressure Mean [Left Arm] Blood Pressure Position Blood Pressure Position [Left Arm] Pulse Oximetry 99 Oxygen Delivery Method Room Air Sepsis Recent Fever Within 48 Hours Sepsis New/Unexplained Change in Mental Status Sepsis Action Taken by Nursing 02/12/25 19:45 02/12/25 19:54 02/12/25 19:55 Temperature Temperature Source Pulse Rate 75 Pulse Rate [Apical] Pulse Rate from SpO2 Sensor Pulse Rhythm Pulse Strength Respiratory Rate 20 Respiratory Effort / Characteristics Respiratory Depth Respiratory Pattern Blood Pressure 118/85 100/57 L 103/73 Blood Pressure [Left Arm] Blood Pressure Mean 94 71 76 Blood Pressure Mean [Left Arm] Blood Pressure Position Blood Pressure Position [Left Arm] Pulse Oximetry Oxygen Delivery Method Sepsis Recent Fever Within 48 Hours Sepsis New/Unexplained Change in Mental Status Sepsis Action Taken by Nursing 02/12/25 20:00 02/12/25 20:00 02/12/25 20:06 Temperature Temperature Source Pulse Rate 84 Pulse Rate [Apical] Pulse Rate from SpO2 Sensor Pulse Rhythm Pulse Strength Respiratory Rate 18 Respiratory Effort / Characteristics Respiratory Depth Respiratory Pattern Blood Pressure 103/66 103/66 90/61 L Blood Pressure [Left Arm] Blood Pressure Mean 76 76 72 Blood Pressure Mean [Left Arm] Blood Pressure Position Blood Pressure Position [Left Arm] Pulse Oximetry 100 Oxygen Delivery Method Room Air Sepsis Recent Fever Within 48 Hours Sepsis New/Unexplained Change in Mental Status Sepsis Action Taken by Nursing 02/12/25 20:10 02/12/25 20:16 02/12/25 20:16 Temperature Temperature Source Pulse Rate 69 90 Pulse Rate [Apical] Pulse Rate from SpO2 Sensor Pulse Rhythm Pulse Strength Respiratory Rate 22 20 Respiratory Effort / Characteristics Respiratory Depth Respiratory Pattern Blood Pressure 101/66 98/64 L 98/64 L Blood Pressure [Left Arm] Blood Pressure Mean 86 79 79 Blood Pressure Mean [Left Arm] Blood Pressure Position Blood Pressure Position [Left Arm] Pulse Oximetry 96 96 Oxygen Delivery Method Room Air Room Air Sepsis Recent Fever Within 48 Hours Sepsis New/Unexplained Change in Mental Status Sepsis Action Taken by Nursing 02/12/25 20:17 02/12/25 20:21 02/12/25 20:26 Temperature Temperature Source Pulse Rate 61 90 90 Pulse Rate [Apical] Pulse Rate from SpO2 Sensor Pulse Rhythm Pulse Strength Respiratory Rate 18 18 Respiratory Effort / Characteristics Respiratory Depth Respiratory Pattern Blood Pressure 117/65 109/58 L Blood Pressure [Left Arm] Blood Pressure Mean 76 73 Blood Pressure Mean [Left Arm] Blood Pressure Position Blood Pressure Position [Left Arm] Pulse Oximetry 97 Oxygen Delivery Method Room Air Sepsis Recent Fever Within 48 Hours Sepsis New/Unexplained Change in Mental Status Sepsis Action Taken by Nursing 02/12/25 20:30 02/12/25 20:35 02/12/25 20:41 Temperature Temperature Source Pulse Rate 59 L 55 L 57 L Pulse Rate [Apical] Pulse Rate from SpO2 Sensor Pulse Rhythm Pulse Strength Respiratory Rate 16 18 18 Respiratory Effort / Characteristics Respiratory Depth Respiratory Pattern Blood Pressure 124/63 118/64 109/54 L Blood Pressure [Left Arm] Blood Pressure Mean 71 102 78 Blood Pressure Mean [Left Arm] Blood Pressure Position Blood Pressure Position [Left Arm] Pulse Oximetry 98 92 99 Oxygen Delivery Method Room Air Room Air Room Air Sepsis Recent Fever Within 48 Hours Sepsis New/Unexplained Change in Mental Status Sepsis Action Taken by Nursing Laboratory Data 02/12/25 17:20 02/12/25 17:20 Lab Results 02/12/25 02/12/25 02/12/25 Range/Units 17:19 17:20 17:37 WBC 8.37 (4.8-10.8) K/ul RBC 3.85 L (4.70-6.10) M/uL Hgb 12.0 L (14.0-18.0) g/dl POC Hgb 12.2 L (14.0-18.0) g/dl Hct 36.0 L (42.0-52.0) % POC Hct 36 L (42-52) % MCV 93.5 (80.0-100.0) fL MCH 31.2 (25.0-34.0) pg MCHC 33.3 (32.0-36.0) g/dL RDW Std Deviation 46.5 H (36.4-46.3) fL RDW Coeff of Martir 13.9 (11.5-14.5) % Plt Count 99 L (130-400) K/uL MPV 11.4 (9.4-12.4) fL Immature Gran % (Auto) 0.4 % Neut % (Auto) 48.3 % Lymph % (Auto) 38.4 % Sac % (Auto) 10.5 % Eos % (Auto) 1.2 % Baso % (Auto) 1.2 % Neut # (Auto) 4.05 (1.40-6.50) K/uL Lymph # (Auto) 3.21 (1.20-3.40) K/uL Sac # (Auto) 0.88 H (0.11-0.59) K/uL Eos # (Auto) 0.10 (0.00-0.50) K/uL Baso # (Auto) 0.10 (0.00-0.20) K/uL Immature Gran # (Auto) 0.03 (0.01-0.20) K/uL POC Sodium 139 (135-144) mmol/L Sodium 138 (136-145) mmol/L POC Potassium 4.5 (3.3-5.0) mmol/L Potassium 4.4 (3.5-5.1) mmol/L POC Chloride 106 (101-112) mmol/L Chloride 104 (98-107) mmol/L Carbon Dioxide 23 (21-32) mmol/L POC Total CO2 23 L (24-31) mmol/L Anion Gap 11 (3-11) POC Anion Gap 15.0 L (16-25) mmol/L POC BUN 43 H (7-18) mg/dl BUN 40 H (6-23) mg/dl Creatinine 3.71 H (0.6-1.4) mg/dl POC Creatinine 3.9 H (0.6-1.3) mg/dl Est Cr Clr Drug Dosing 20.0 ml/min eGFR 17.87 BUN/Creatinine Ratio 10.8 (10-20) Glucose 184 H (70-99(Fasting)) mg/dl POC Glucose 190 H (70-99) mg/dl POC Glucose (other) 185 H (70-99) mg/dl Lactate (0.4-2.0) mmol/L Calcium 9.6 (8.6-10.3) mg/dl POC Ioniz Calcium Yifan 1.14 (1.12-1.32) mmol/l Magnesium 1.4 L (1.7-2.4) mg/dl Total Bilirubin 1.4 H (0.2-1.0) mg/dl Direct Bilirubin 0.5 H (0-0.2) mg/dl AST 38 (13-39) U/L ALT 26 (7-52) U/L Alkaline Phosphatase 179 H (34-104) U/L Total Creatine Kinase 36 (30-223) U/L Troponin I High Sens 9.1 (0-20) pg/ml B-Natriuretic Peptide 68 (0-100) pg/ml Total Protein 7.8 (6.0-8.3) gm/dl Albumin 2.9 L (3.4-5.0) gm/dl Lipase 71 (11-82) U/L Urine Color Urine Appearance (Clear) Urine pH (4.5-7.5) Ur Specific [place] (1.000-1.030) Urine Protein (Negative) Urine Glucose (UA) (Negative) Urine Ketones (Negative) Urine Blood (Negative) Urine Nitrite (Negative) Urine Bilirubin (Negative) Urine Urobilinogen (Negative) Ur Leukocyte Esterase (Negative) Urine Comment Ethyl Alcohol mg/dL (<10.0) mg/dl 02/12/25 02/12/25 02/12/25 Range/Units 18:02 18:15 18:54 WBC (4.8-10.8) K/ul RBC (4.70-6.10) M/uL Hgb (14.0-18.0) g/dl POC Hgb (14.0-18.0) g/dl Hct (42.0-52.0) % POC Hct (42-52) % MCV (80.0-100.0) fL MCH (25.0-34.0) pg MCHC (32.0-36.0) g/dL RDW Std Deviation (36.4-46.3) fL RDW Coeff of Martir (11.5-14.5) % Plt Count (130-400) K/uL MPV (9.4-12.4) fL Immature Gran % (Auto) % Neut % (Auto) % Lymph % (Auto) % Sac % (Auto) % Eos % (Auto) % Baso % (Auto) % Neut # (Auto) (1.40-6.50) K/uL Lymph # (Auto) (1.20-3.40) K/uL Sac # (Auto) (0.11-0.59) K/uL Eos # (Auto) (0.00-0.50) K/uL Baso # (Auto) (0.00-0.20) K/uL Immature Gran # (Auto) (0.01-0.20) K/uL POC Sodium (135-144) mmol/L Sodium (136-145) mmol/L POC Potassium (3.3-5.0) mmol/L Potassium (3.5-5.1) mmol/L POC Chloride (101-112) mmol/L Chloride (98-107) mmol/L Carbon Dioxide (21-32) mmol/L POC Total CO2 (24-31) mmol/L Anion Gap (3-11) POC Anion Gap (16-25) mmol/L POC BUN (7-18) mg/dl BUN (6-23) mg/dl Creatinine (0.6-1.4) mg/dl POC Creatinine (0.6-1.3) mg/dl Est Cr Clr Drug Dosing ml/min eGFR BUN/Creatinine Ratio (10-20) Glucose (70-99(Fasting)) mg/dl POC Glucose (70-99) mg/dl POC Glucose (other) (70-99) mg/dl Lactate 2.2 H* (0.4-2.0) mmol/L Calcium (8.6-10.3) mg/dl POC Ioniz Calcium Yifan (1.12-1.32) mmol/l Magnesium (1.7-2.4) mg/dl Total Bilirubin (0.2-1.0) mg/dl Direct Bilirubin (0-0.2) mg/dl AST (13-39) U/L ALT (7-52) U/L Alkaline Phosphatase (34-104) U/L Total Creatine Kinase (30-223) U/L Troponin I High Sens (0-20) pg/ml B-Natriuretic Peptide (0-100) pg/ml Total Protein (6.0-8.3) gm/dl Albumin (3.4-5.0) gm/dl Lipase (11-82) U/L Urine Color Yellow Urine Appearance Clear (Clear) Urine pH 6.0 (4.5-7.5) Ur Specific [place] 1.007 (1.000-1.030) Urine Protein Negative (Negative) Urine Glucose (UA) Negative (Negative) Urine Ketones Negative (Negative) Urine Blood Negative (Negative) Urine Nitrite Negative (Negative) Urine Bilirubin Negative (Negative) Urine Urobilinogen Negative (Negative) Ur Leukocyte Esterase Negative (Negative) Urine Comment Ethyl Alcohol mg/dL < 10.0 (<10.0) mg/dl 02/12/ Range/Units 20:04 WBC (4.8-10.8) K/ul RBC (4.70-6.10) M/uL Hgb (14.0-18.0) g/dl POC Hgb (14.0-18.0) g/dl Hct (42.0-52.0) % POC Hct (42-52) % MCV (80.0-100.0) fL MCH (25.0-34.0) pg MCHC (32.0-36.0) g/dL RDW Std Deviation (36.4-46.3) fL RDW Coeff of Martir (11.5-14.5) % Plt Count (130-400) K/uL MPV (9.4-12.4) fL Immature Gran % (Auto) % Neut % (Auto) % Lymph % (Auto) % Sac % (Auto) % Eos % (Auto) % Baso % (Auto) % Neut # (Auto) (1.40-6.50) K/uL Lymph # (Auto) (1.20-3.40) K/uL Sac # (Auto) (0.11-0.59) K/uL Eos # (Auto) (0.00-0.50) K/uL Baso # (Auto) (0.00-0.20) K/uL Immature Gran # (Auto) (0.01-0.20) K/uL POC Sodium (135-144) mmol/L Sodium (136-145) mmol/L POC Potassium (3.3-5.0) mmol/L Potassium (3.5-5.1) mmol/L POC Chloride (101-112) mmol/L Chloride (98-107) mmol/L Carbon Dioxide (21-32) mmol/L POC Total CO2 (24-31) mmol/L Anion Gap (3-11) POC Anion Gap (16-25) mmol/L POC BUN (7-18) mg/dl BUN (6-23) mg/dl Creatinine (0.6-1.4) mg/dl POC Creatinine (0.6-1.3) mg/dl Est Cr Clr Drug Dosing ml/min eGFR BUN/Creatinine Ratio (10-20) Glucose (70-99(Fasting)) mg/dl POC Glucose (70-99) mg/dl POC Glucose (other) (70-99) mg/dl Lactate 2.2 H* (0.4-2.0) mmol/L Calcium (8.6-10.3) mg/dl POC Ioniz Calcium Yifan (1.12-1.32) mmol/l Magnesium (1.7-2.4) mg/dl Total Bilirubin (0.2-1.0) mg/dl Direct Bilirubin (0-0.2) mg/dl AST (13-39) U/L ALT (7-52) U/L Alkaline Phosphatase (34-104) U/L Total Creatine Kinase (30-223) U/L Troponin I High Sens (0-20) pg/ml B-Natriuretic Peptide (0-100) pg/ml Total Protein (6.0-8.3) gm/dl Albumin (3.4-5.0) gm/dl Lipase (11-82) U/L Urine Color Urine Appearance (Clear) Urine pH (4.5-7.5) Ur Specific [place] (1.000-1.030) Urine Protein (Negative) Urine Glucose (UA) (Negative) Urine Ketones (Negative) Urine Blood (Negative) Urine Nitrite (Negative) Urine Bilirubin (Negative) Urine Urobilinogen (Negative) Ur Leukocyte Esterase (Negative) Urine Comment Ethyl Alcohol mg/dL (<10.0) mg/dl Administered Medications Norepinephrine Bitartrate (Levophed/D5w) 4 mg in 250 mls @ 5.58 mls/hr IV .Q24H [facility]; Protocol Stop: 03/14/25 17:44 Last Titration: 02/12/25 23:02 Dose: 0.02 mcg/kg/min, 5.6 mls/hr Documented By: COLE Co-signed By: JT Titration: 02/12/25 22:15 Dose: 0.03 mcg/kg/min, 8.4 mls/hr Documented By: TMG Co-signed By: JT Titration: 02/12/25 21:14 Dose: 0.05 mcg/kg/min, 14 mls/hr Documented By: EMB Co-signed By: MBL Titration: 02/12/25 20:47 Dose: 0 mcg/kg/min, 0 mls/hr Documented By: MBL Co-signed By: EMB Titration: 02/12/25 19:41 Dose: 0.05 mcg/kg/min, 14 mls/hr Documented By: MBL Co-signed By: MJJ Titration: 02/12/25 18:06 Dose: 0.07 mcg/kg/min, 19.5 mls/hr Documented By: MH Co-signed By: MWS Admin: 02/12/25 17:37 Dose: 0.05 mcg/kg/min, 14 mls/hr Documented By: ERNIE Co-signed By: MICHELLE Parenteral Electrolytes (Plasma-Lyte A Ph 7.4) 1,000 mls @ 125 mls/hr IV .Q8H ONE Stop: 02/13/25 05:59 Last Admin: 02/12/25 21:09 Dose: 200 mls/hr Documented By: MYESHA Magnesium Sulfate/Dextrose (Magnesium Sulfate / D5w) 1 gm in 100 mls @ 50 mls/hr IV Q2H OLIVIA Stop: 02/13/25 05:44 Last Admin: 02/13/25 00:18 Dose: 50 mls/hr Documented By: Infusion: 02/13/25 00:18 Dose: Infused Documented By: Admin: 02/12/25 22:43 Dose: 50 mls/hr Documented By: COLE Hydrocortisone Sodium (Succinate 50 mg/ Syringe) 1 mls @ 4 mls/min IV Q6H OLIVIA Stop: 03/14/25 22:59 Last Admin: 02/12/25 22:45 Dose: 4 mls/min Documented By: COLE Insulin Aspart (Insulin Aspart Per Unit Charge) 0 units SC ACHS OLIVIA Stop: 03/14/25 22:03 Last Admin: 02/13/25 00:00 Dose: 3 units Documented By: COLE Co-signed By: LEONA Lactulose (Lactulose Syrup 20 Gm/30 Ml Udc) 20 gm PO TID OLIVIA Stop: 03/14/25 20:59 Last Admin: 02/12/25 22:45 Dose: 20 gm Documented By: COLE Rifaximin (Rifaximin 550 Mg Tablet) 550 mg PO BID OLIVIA Stop: 03/14/25 20:59 Last Admin: 02/12/25 22:45 Dose: 550 mg Documented By: COLE Discontinued Medications Sodium Chloride (Nss) 1,000 mls @ 999 mls/hr IV .Q1H1M ONE Stop: 02/12/25 18:46 Last Infusion: 02/12/25 18:01 Dose: Infused Documented By: Admin: 02/12/25 17:30 Dose: 999 mls/hr Documented By: ERNIE Sodium Chloride (Nss) 1,000 mls @ 999 mls/hr IV .Q1H1M ONE Stop: 02/12/25 19:01 Last Infusion: 02/12/25 20:29 Dose: Infused Documented By: Admin: 02/12/25 18:32 Dose: 999 mls/hr Documented By: ERNIE Lactated Ringer's (Lr) 1,000 mls @ 500 mls/hr IV .Q2H ONE Stop: 02/12/25 21:32 Last Admin: 02/12/25 19:56 Dose: Not Given Documented By: JAIME Thiamine HCl 100 mg/ Syringe 10 mls @ 2 mls/min IV NOW STA Stop: 02/12/25 19:42 Last Admin: 02/12/25 19:54 Dose: 2 mls/min Documented By: ERNA Parenteral Electrolytes (Plasma-Lyte A Ph 7.4) 500 mls @ 999 mls/hr IV .Q31M ONE Stop: 02/12/25 20:23 Last Infusion: 02/12/25 20:46 Dose: Infused Documented By: Admin: 02/12/25 20:09 Dose: 999 mls/hr Documented By: ERNA Acetaminophen (Ofirmev) 1,000 mg in 100 mls @ 400 mls/hr IV NOW STA Stop: 02/12/25 20:59 Last Infusion: 02/12/25 21:21 Dose: Infused Documented By: Admin: 02/12/25 21:07 Dose: 400 mls/hr Documented By: MYESHA Vancomycin HCl 1,500 mg/ (Sodium Chloride) 530 mls @ 200 mls/hr IV ONE ONE Stop: 02/13/25 00:20 Last Admin: 02/12/25 22:43 Dose: 200 mls/hr Documented By: COLE Cefepime HCl (Maxipime 2000mg) 2,000 mg in 20 mls @ 5 mls/min IV ONE ONE; Protocol Stop: 02/12/25 22:33 Last Admin: 02/12/25 22:44 Dose: 5 mls/min Documented By: COLE Insulin Glargine (Lantus Per Unit Charge) 5 units SC BID OLIVIA Stop: 03/14/25 20:59 Last Admin: 02/12/25 23:26 Dose: Not Given Documented By: COLE Midodrine (Midodrine Hcl 2.5 Mg Tab) 5 mg PO NOW STA Stop: 02/12/25 19:39 Last Admin: 02/12/25 19:55 Dose: 5 mg Documented By: ERNA Midodrine (Midodrine Hcl 2.5 Mg Tab) 5 mg PO NOW STA Stop: 02/12/25 20:59 Last Admin: 02/12/25 21:26 Dose: 5 mg Documented By: ERNA Miscellaneous (Stat Iv Infusion Titration Per Protocol) 1 each N/A NOW STA Stop: 02/12/25 17:36 Last Admin: 02/12/25 17:37 Dose: 1 each Documented By: ERNIE Norepinephrine Bitartrate (Norepinephrine/D5w 4 Mg/250 Ml) Confirm Administered Dose 4 mg IV .STK-MED ONE Stop: 02/12/25 17:37 Last Admin: 02/12/25 17:40 Dose: Not Given Documented By: ERNIE Imaging Data Radiologist's Impression: Hip/Pelvis X-Ray 02/12/25 17:28 Clinical History: Pain. 4 views of the pelvis and right hip are submitted for review. Findings: No fracture or dislocation is seen. No significant arthritic changes are noted. No other osseous abnormality is identified. There are no radiopaque foreign bodies. Impression: Unremarkable radiographs of the pelvis and right hip Electronically signed by Demarco Boltno 02-12-2025 6:29 PM Abdomen/Pelvis CT 02/12/25 17:41 EXAMINATION: CT of the chest, abdomen and pelvis performed without the administration of IV contrast TECHNIQUE: Helical CT images from the lung apices through the symphysis pubis were obtained without contrast. Coronal and sagittal reformatted images were generated at a workstation for further assessment. Dose reduction techniques were achieved by using automatic exposure control and/or adjustment of mA and/or kV according to patient size and/or use of iterative reconstruction technique. COMPARISON: None HISTORY: Pain FINDINGS: Lines and tubes: None Mediastinum/Neck Base: No thyroid nodules. Central tracheobronchial tree is patent. Heart size is normal. No pericardial effusion. Normal thoracic vasculature. Aortic valve calcification. No thoracic lymphadenopathy. Lungs: No consolidation. No pleural effusion or pneumothorax. Liver: Cirrhotic morphology. no suspicious liver lesions. Gallbladder: No gallstones. No evidence of acute cholecystitis. Spleen: Normal size. Pancreas: No suspicious pancreatic lesions. The pancreatic duct is not dilated. Adrenal glands: No adrenal nodules. Kidneys: No hydronephrosis or obstructing renal stones. Atrophic appearance of the right kidney. Bladder / Pelvic organs: Unremarkable. Bowel: No bowel obstruction. No abnormal bowel wall thickening. The appendix is unremarkable. Lymph nodes: No retroperitoneal, mesenteric, or pelvic lymphadenopathy. Peritoneum / Retroperitoneum: No free fluid or air within the abdomen. Vessels: No infrarenal aortic aneurysm. Bones and soft tissues: Degenerative changes of the spine. No acute osseous normality. Avascular necrosis of the right femoral head. IMPRESSION: No acute finding in the chest, abdomen or pelvis. There is avascular necrosis of the right femoral head without subchondral collapse. The lungs are clear. Electronically signed by Casey Sutherland 02-12-2025 6:[address] 02/12/25 17:46 EXAMINATION: CT of the chest, abdomen and pelvis performed without the administration of IV contrast TECHNIQUE: Helical CT images from the lung apices through the symphysis pubis were obtained without contrast. Coronal and sagittal reformatted images were generated at a workstation for further assessment. Dose reduction techniques were achieved by using automatic exposure control and/or adjustment of mA and/or kV according to patient size and/or use of iterative reconstruction technique. COMPARISON: None HISTORY: Pain FINDINGS: Lines and tubes: None Mediastinum/Neck Base: No thyroid nodules. Central tracheobronchial tree is patent. Heart size is normal. No pericardial effusion. Normal thoracic vasculature. Aortic valve calcification. No thoracic lymphadenopathy. Lungs: No consolidation. No pleural effusion or pneumothorax. Liver: Cirrhotic morphology. no suspicious liver lesions. Gallbladder: No gallstones. No evidence of acute cholecystitis. Spleen: Normal size. Pancreas: No suspicious pancreatic lesions. The pancreatic duct is not dilated. Adrenal glands: No adrenal nodules. Kidneys: No hydronephrosis or obstructing renal stones. Atrophic appearance of the right kidney. Bladder / Pelvic organs: Unremarkable. Bowel: No bowel obstruction. No abnormal bowel wall thickening. The appendix is unremarkable. Lymph nodes: No retroperitoneal, mesenteric, or pelvic lymphadenopathy. Peritoneum / Retroperitoneum: No free fluid or air within the abdomen. Vessels: No infrarenal aortic aneurysm. Bones and soft tissues: Degenerative changes of the spine. No acute osseous normality. Avascular necrosis of the right femoral head. IMPRESSION: No acute finding in the chest, abdomen or pelvis. There is avascular necrosis of the right femoral head without subchondral collapse. The lungs are clear. Electronically signed by Casey Sutherland 02-12-2025 6:14 PM Discharge Plan Visit Data Chief Complaint: Swelling/Edema to Extremity Stated Complaint: LEGS SWOLLEN, UNABLE TO WALK ED Provider: Denver Pisano Discharge Problem: Hypotension, Elevated lactic acid level, CEE (acute kidney injury), Avascular necrosis of bone of right hip Patient Disposition: Admitted As Inpatient Condition: Critical Discharge Instructions Interventions: ED Discharge Assessment Last Done: 02/12/25 21:39 Discharge Problem: Hypotension Qualifiers: Hypotension type: unspecified hypotension type Qualified Code(s): I95.9 - Hypotension, unspecified
[2025-02-12] MEDS ORDERED: PROMETHAZINE 6.25 MG/50.25 ML BAG IV PRN (20:48)
[2025-02-12] MEDS ORDERED: oxyCODONE HCL IR 5 MG TAB (IMMEDIATE RELEASE) PO PRN (20:48)
[2025-02-12] MEDS ORDERED: ACETAMINOPHEN 500 MG TAB PO PRN ×2 (20:48→23:28)
[2025-02-12] MEDS ORDERED: LORazepam 2 MG/1 ML VIAL IV PRN (20:48)
[2025-02-12] MEDS ORDERED: DOXYCYCLINE HYCLATE 100 MG in DEXTROSE 5% MINI-B 100 ML IV STA (20:58)
[2025-02-12] MEDS: ACETAMINOPHEN 1,000 MG/100 ML VIAL IV STA (21:07)
[2025-02-12] MEDS: PLASMA-LYTE A 1,000 ML IV ONE (21:09)
[2025-02-12 21:20] LABS: Magnesium 1.4 mg/dl (1.7-2.4)
[2025-02-12] MEDS ORDERED: VANCOMYCIN CONSULT ACTIVE PRN (21:42)
[2025-02-12] MEDS ORDERED: GLUCAGON FOR INJ 1 MG VIAL SQ PRN (22:04)
[2025-02-12] MEDS ORDERED: DEXTROSE 50% 50 ML SYRINGE IV PRN (22:04)
[2025-02-12] MEDS ORDERED: CARBOHYDRATES FOR HYPOGLYCEMIA PO PRN (22:04)
[2025-02-12] MEDS ORDERED: GLUCOSE 10 TAB/TUBE PO PRN (22:04)
[2025-02-12] MEDS ORDERED: GLUCOSE 40% GEL 15 GM TUBE PO PRN (22:04)
--- NOTE | 2025-02-12 22:30 | Critical Care Consultation ---
Date of Consultation February 12, 2025 Assessment & Plan (1) Shock: (2) Avascular necrosis of bone of hip: (3) Right hip pain: (4) Alcoholic cirrhosis of liver: (5) Acute kidney injury superimposed on stage 3a chronic kidney disease: (6) Noncompliance: (7) Hypomagnesemia: (8) Orthostatic hypotension: (9) Adrenal insufficiency: Plan Reason Critically Ill: 1. Hypovolemic shock +/- cellulitis 2. Acute kidney injury, prerenal 3. Adrenal insufficiency, primary vs i/s/o cirrhosis 4. Avascular necrosis of R femoral head 5. Protein-calorie malnutrition 6. Failure to thrive 7. Medical noncompliance 8. Ambulatory dysfunction 9. Lactic acidosis 10. Alcohol use disorder Neuro - [facility] ICU: negative RASS GOAL 0 Avoid sedating medications APAP 3g limit QD PRN pain/fever (cirrhosis not decompensated at this time) Thiamine, Folic acid Bedrest given orthostasis Monitor closely for withdrawal symptoms. Delineate between psychomotor agitation in the setting of cognitive difficulties and actual withdrawal symptoms Cardiac - I suspect his hypotension is multifactorial in the setting of malnutrition, cirrhosis, adrenal insufficiency Continue norepinephrine for MAP goal > 65mmHg POCUS unrevealing. IVC small, continue IVF until taking adequate PO Continue midodrine TID for now Hold antihypertensives and diuretics, patient examines hypovolemic to euvolemic Respiratory - No acute concerns SpO2 goal > 92% HOB 30 IS/Flutter GI - Diet: Diabetic SUP: PPI QD Bowel regimen: Lactulose Cirrhosis compensated at this time RENAL/LYTES - Trend BMP Replete electrolytes as indicated Titus for accurate I/Os Maintain net even to net negative Trend lactate to clearance ENDO - Start glucocorticoid and mineralocorticoid replacement Consider Endocrine consult as OP I expect improvement in hemodynamics with steroid therapy BG 140-180 per SCCM guidelines ISS if needed while inpatient HEME/ONC/OTHER - Orthopaedics consult for avascular necrosis, appreciate recommendations CT did not specify degree of necrosis Social Work/Case Management, PT/OT involvement to determine best disposition ID - Cefepime and Vancomycin for possible cellulitis. History of S. hominis bacteremia These can likely be stopped in the next 24 hours if culture data shows no infection BC x2 pending, UA WNL, procalcitonin negative, MRSA nares pending Wound care consult, patient continues to pick at legs causing excoriation and infection LINES/TUBES/DRAINS - PIV x2 DVT PROPHYLAXIS - SQH I have personally spent 46 minutes of critical care time in the direct management of this patient. This is a life/limb threatening event. This includes time spent evaluating patient, direct bedside care, chart review, placing orders, interpretation of diagnostic studies, discussion with consultants, patient, and family members, as well as other required patient management activities. This time is exclusive of all separately billable procedures, and teaching time and separate from and in addition to any other critical care service time. Thank you for allowing us to participate in the care of this patient. Please refer to my attending physician's documentation for any further recommendations. Supervising Physician Co-Signing Physician Notes Patient seen and examined. EMR reviewed. Agree with assessment plan as noted by ESSIE. Please refer to my progress note from 02/13/2025 for additional details History of Present Illness Reason for Consultation: Hypotension Requesting Physician: JAMES Attending Physician: Melissa Lyle MD History of Present Illness Mr. Major Patino (Ted) is a pleasant 59YOM with an extension medical history, including but not limited to, anoxic brain injury resulting in cognitive difficulties, ETOH use disorder, NIDDMII, HTN, blindness, hearing loss, ortho stasis, TCP, ETOH cirrhosis with HE, hyponatremia, BPH who presented to [facility] ED from home on the evening of 02/12/2025 due to R hip pain for a few days with difficulty ambulating. On arrival to ED patient was AAOx3, found to be hypotensive with SBP 70s. Wholly asymptomatic. Hypotension persisted despite 3L IVF, extra dose of midodrine. He was started on norepinephrine wtih improvement. Work-up revealed CEE on CKD, mild lactic acidosis. Procalcitonin 0.5. Recent Nephrology appointment - increase in midodrine and decrease in KCl supplementation. Multiple admissions this year due to hypotension and sepsis. I did order a cortisol which resulted < 3 as well as ammonia level which resulted 74. He was started on steroid therapy and received lactulose. Patient seen on arrival to ICU 109. He is AAOx3. Very hard of hearing. Gives history of multiple days of R hip pain with difficulty walking even with his walker. He lives alone after being discharged from [facility]. His family sorts his medic ations and grocery shops for him. He claims compliance with all medications except lactulose because he does not like having to get to the bathroom. El understands why he takes this medication and also understands what will happen if he does not take it. He tells me he cooks for himself, mostly pizza from the freezer. I spoke to his sister at length. She expressed concern that patient is not taking care of himself. His apartment is reportedly in disarray. He has a very poor diet and does not cook for himself. He has also started drinking alcohol again since returning home. He does not drive, but walks to the [employer] across the street to buy himself beer. Allergies Allergy/AdvReac Type Severity Reaction Status Date / Time No Known Allergies Allergy Verified 04/04/21 18:18 Home Medications Medication Instructions Recorded Confirmed Type aspirin 81 mg tablet,delayed 81 mg PO DAILY 04/04/21 02/12/25 History release albuterol sulfate 90 mcg/actuation 2 puff inhalation Q4H PRN 11/20/24 02/12/25 History aerosol inhaler SOB/Wheezing L.acidop,casei,lactis,rham-B.lact,sudhir 1 cap PO DAILY #7 caps 12/03/24 02/12/25 Rx 625 mg (10 billion cell) capsule (Advanced Probiotic) folic acid 1 mg tablet 1 mg PO QAM #30 tabs 12/03/24 02/12/25 Rx magnesium chloride 64 mg 128 mg (2 x 64 mg) PO BID #60 tabs 12/03/24 02/12/25 Rx (magnesium chloride) tablet,delayed release (Mag 64) thiamine HCl (vitamin B1) 100 mg 100 mg PO DAILY #30 tabs 12/03/24 02/12/25 Rx tablet white petrolatum-mineral oil 1 applic EXT BID #454 grams 12/03/24 02/12/25 Rx topical cream (Dermacerin topical cream) blood sugar diagnostic (OneTouch #100 ea 12/18/24 02/12/25 Rx Ultra Test strips) blood-glucose meter #1 ea 12/18/24 02/12/25 Rx blood-glucose sensor (FreeStyle #2 ea 12/18/24 02/12/25 Rx Rj 3 Plus Sensor device) insulin glargine 100 unit/mL 10 unit (0.1 mL) SC BID 30 days 12/18/24 02/12/25 Rx subcutaneous solution (Lantus #10 mL U-100 Insulin) lancets 30 gauge ([facility] ea 12/18/24 02/12/25 Rx Safety Lancet) pen needle, diabetic 32 gauge x #100 ea 12/18/24 02/12/25 Rx 5/32" rifaximin 550 mg tablet (Xifaxan) 550 mg PO BID #60 tabs 12/18/24 02/12/25 Rx magnesium oxide 400 mg (241.3 mg 400 mg PO BID #60 tabs 01/01/25 02/12/25 Rx magnesium) tablet blood sugar diagnostic ([facility] 02/12/25 02/12/25 History Ultra Test strips) lactulose 10 gram/15 mL oral 30 g PO TID 02/12/25 02/12/25 History solution midodrine 5 mg tablet 5 mg PO TID 02/12/25 02/12/25 History pantoprazole 40 mg tablet,delayed 40 mg PO QAM 02/12/25 02/12/25 History release potassium chloride 20 mEq 20 meq PO DAILY 02/12/25 02/12/25 History tablet,extended release(part/cryst) spironolactone 25 mg tablet 25 mg PO DAILY 02/12/25 02/12/25 History torsemide 20 mg tablet 20 mg PO BID 02/12/25 02/12/25 History Patient History Medical History Congenital cataract of both eyes Hypertension BPH NOS w ur obs/LUTS Renal calculi Retained ureteral stent Alcohol dependence Surgical History S/P ureteral stent placement S/P lens implant Family History Other Breast cancer Diabetes Heart disease Social History Smoking Status: Never smoker Second Hand Exposure: No; Do You Dip or Chew Tobacco: Yes; Hx Alcohol Use: Yes Alcohol type: beer and hard liquor Hx Substance Use: No Preferred Language: Samoan Communication Ability: Effective Fiscal Manager Required: No Beliefs That Will Affect Care: None Current Living Situation: Alone Current Living Situation Comment: Lives in Apartment by himself. Family does check on him. current occupational status: disabled Feels Safe at Home: Yes Assistive Devices: Cane, Glasses and Hearing Aid - Bilateral Review of Systems Review of Systems: All systems reviewed & are unremarkable except as noted in Subjective Physical Exam Constitutional: well developed, + frail appearing, cooperative and + malnourished; no acute distress Eyes: + anicteric sclerae, + irregular pupils and + nystagmus cataract present L eye ENMT: external ear and nose normal, oropharynx normal Neck: trachea midline, no thyromegaly Respiratory: normal respiratory effort, lungs clear to auscultation Cardiovascular: RRR, no murmur, no edema Gastrointestinal (Abdomen): normal bowel sounds, soft, nontender, no hepatosplenomegaly No fluid waves Musculoskeletal: no cyanosis or clubbing, extremities motor strength 5/5 Skin: normal turgor, + wound, + crusts, + dry skin, + excoriations and + scar Neurologic: normal touch/pain/proprioception, moves all extremities and awake; no focal motor deficits Speech / Cognition: normal speech Motor/Sensory: no tremor, no asterixis and no sensory deficit Cognitive difficulties, but patient has understanding of clinical condition, insight into issues, decision making capacity Psychiatric: Orientation: alert and oriented x 3 Apperance: + disheveled Eye Contact: + fair eye contact Affect: euthymic affect Thought Process: + circumstantial thought process Thought Content: + preoccupation Hallucinations: no auditory hallucinations, no visual hallucinations and no tactile hallucinations Cognition: recent memory grossly intact Estimated Intelligence: + below average estimated intelligence Insight: + fair insight Judgment: + fair judgement Genitourinary: No wounds or abnormalities Results & Data Results & Data Vital Signs (Past 12 Hours) Vital Signs Temp Pulse Pulse Resp BP BP Pulse Ox 02/12/25 22:01 36.4 C L 49 L 16 113/56 L 99 02/12/25 21:30 54 L 16 107/66 100 02/12/25 21:25 116/76 02/12/25 21:20 63 20 105/68 99 02/12/25 21:10 75/55 L 02/12/25 21:05 89 20 87/55 L 98 02/12/25 21:00 95/61 L 02/12/25 20:55 89 22 80/59 L 98 02/12/25 20:50 87 20 108/81 98 02/12/25 20:45 87 16 119/61 96 02/12/25 20:45 57 L 18 119/61 99 02/12/25 20:41 57 L 18 109/54 L 99 02/12/25 20:35 55 L 18 118/64 92 02/12/25 20:30 59 L 16 124/63 98 02/12/25 20:26 90 18 109/58 L 97 02/12/25 20:21 90 18 117/65 02/12/25 20:17 61 02/12/25 20:16 90 20 98/64 L 96 02/12/25 20:16 69 22 98/64 L 96 02/12/25 20:10 101/66 02/12/25 20:06 90/61 L 02/12/25 20:00 84 18 103/66 100 02/12/25 20:00 103/66 02/12/25 19:55 103/73 02/12/25 19:54 75 20 100/57 L 02/12/25 19:45 118/85 02/12/25 19:41 87 20 120/65 02/12/25 19:32 130/89 02/12/25 19:25 58 L 18 127/63 99 02/12/25 19:16 62 16 115/67 100 02/12/25 19:10 62 16 103/72 100 02/12/25 19:05 63 20 108/66 100 02/12/25 19:00 61 16 102/65 99 02/12/25 19:00 59 L 19 102/65 100 02/12/25 18:36 81 15 126/56 L 100 02/12/25 18:30 73 17 119/77 99 02/12/25 18:27 57 L 15 104/60 100 02/12/25 18:25 104/60 02/12/25 18:22 100/62 02/12/25 18:16 59 L 17 95/54 L 99 02/12/25 18:15 95/54 L 02/12/25 18:08 84/54 L 02/12/25 18:02 62 16 89/50 L 99 02/12/25 17:46 63 16 91/55 L 99 02/12/25 17:39 66 15 71/42 L 98 02/12/25 17:34 72/39 L 02/12/25 17:34 69 16 72/39 L 97 02/12/25 17:29 73 13 63/36 L 98 02/12/25 17:27 67 02/12/25 17:06 36.3 C L 76 18 74/42 L 97 O2 Del Method 02/12/25 22:01 Room Air 02/12/25 21:30 Room Air 02/12/25 21:25 02/12/25 21:20 Room Air 02/12/25 21:10 02/12/25 21:05 Room Air 02/12/25 21:00 02/12/25 20:55 Room Air 02/12/25 20:50 Room Air 02/12/25 20:45 Room Air 02/12/25 20:45 Room Air 02/12/25 20:41 Room Air 02/12/25 20:35 Room Air 02/12/25 20:30 Room Air 02/12/25 20:26 Room Air 02/12/25 20:21 02/12/25 20:17 02/12/25 20:16 Room Air 02/12/25 20:16 Room Air 02/12/25 20:10 02/12/25 20:06 02/12/25 20:00 Room Air 02/12/25 20:00 02/12/25 19:55 02/12/25 19:54 02/12/25 19:45 02/12/25 19:41 02/12/25 19:32 02/12/25 19:25 Room Air 02/12/25 19:16 Room Air 02/12/25 19:10 Room Air 02/12/25 19:05 Room Air 02/12/25 19:00 Room Air 02/12/25 19:00 Room Air 02/12/25 18:36 Room Air 02/12/25 18:30 02/12/25 18:27 02/12/25 18:25 02/12/25 18:22 02/12/25 18:16 Room Air 02/12/25 18:15 02/12/25 18:08 02/12/25 18:02 Room Air 02/12/25 17:46 Room Air 02/12/25 17:39 Room Air 02/12/25 17:34 02/12/25 17:34 Room Air 02/12/25 17:29 Room Air 02/12/25 17:27 02/12/25 17:06 Room Air Laboratory Results Reviewed Diagnostic Findings Reviewed Medications Administered See MAR Coding Level of Care Code 25453 IN/OBS CONSULT LVL 3,45M Diagnoses Shock R57.9 Avascular necrosis of bone of hip M87.059 Right hip pain M25.551 Alcoholic cirrhosis, unspecified whether ascites present K70.30 Ascites presence: unspecified Acute kidney injury superimposed on stage 3a chronic kidney disease N17.9; N18.31 Noncompliance Z91.199 Hypomagnesemia E83.42 Orthostatic hypotension I95.1 Adrenal insufficiency E27.40 Time Spent (min) 46 (4) Alcoholic cirrhosis of liver Ascites presence: unspecified Qualified Code(s): K70.30 - Alcoholic cirrhosis of liver without ascites
[2025-02-12] MEDS: VANCOMYCIN HCL 1,500 MG in SODIUM CHLORIDE 0.9% 500 ML IV ONE (22:43)
[2025-02-12] MEDS: MAGNESIUM SULFATE / D5W 1 GM/100 ML BAG IV SCH (22:43)
[2025-02-12] MEDS: CEFEPIME 2000MG 2,000 MG/20 ML SYR IV ONE (22:44)
[2025-02-12] MEDS: LACTULOSE SYRUP 20 GM/30 ML UDC PO SCH (22:45)
[2025-02-12] MEDS: rifAXIMin 550 MG TABLET PO SCH (22:45)
[2025-02-12] MEDS: HYDROCORTISONE SOD 50 MG in SYRINGE 0 ML IV SCH (22:45)
[2025-02-12] MEDS: LANTUS PER UNIT CHARGE SC SCH (23:26)
[2025-02-13] MEDS: INSULIN ASPART PER UNIT CHARGE SC SCH
[2025-02-13 05:13] LABS: Basophils # (auto) 0.03 K/uL (0.00-0.20); Basophils % (auto) 0.8 %; Eosinophils # (auto) 0.01 K/uL (0.00-0.50); Eosinophils % (auto) 0.3 %; Hematocrit (blood only) 32.7 % (42.0-52.0); Hemoglobin 11.1 g/dl (14.0-18.0); Lymphocytes # (auto) 1.08 K/uL (1.20-3.40); Lymphocytes % (auto) 28.1 %; Mean Corpuscular Hemoglobin 31.4 pg (25.0-34.0); Mean Corpuscular Hgb Conc 33.9 g/dL (32.0-36.0); Mean Corpuscular Volume 92.4 fL (80.0-100.0); Mean Platelet Volume 11.4 fL (9.4-12.4); Monocytes # (auto) 0.14 K/uL (0.11-0.59); Monocytes % (auto) 3.6 %; Neutrophils # (auto) 2.58 K/uL (1.40-6.50); Neutrophils % (auto) 67.2 %; Platelet Count 63 K/uL (130-400); RDW Coefficient of Variation 13.6 % (11.5-14.5); RDW Standard Deviation 45.9 fL (36.4-46.3); Red Blood Count 3.54 M/uL (4.70-6.10); White Blood Count 3.84 K/ul (4.8-10.8)
[2025-02-13 05:26] LABS: BUN Creatinine Ratio 13.1 (10-20); Calcium 8.9 mg/dl (8.6-10.3); Creatinine Clr Calc Pharmacy 30.4 ml/min; Magnesium 2.4 mg/dl (1.7-2.4); Phosphorus 2.8 mg/dl (2.5-4.9); Potassium 4.3 mmol/L (3.5-5.1)
--- NOTE | 2025-02-13 06:27 | Orthopedic Consultation ---
Date of Service February 13, 2025 Assessment & Plan (1) Avascular necrosis of bone of right hip: Patient being consulted today for findings of avascular necrosis of the right femoral head without any collapse. X-ray images of the right hip were negative for any acute pathology or collapse. CT of the abdomen pelvis was completed in the emergency department and there was found to be avascular necrosis of the right femoral head. He was originally in the emergency department for right hip pain that he has had for a few weeks, however he was found to be hypotensive and was admitted to the hospital for management of his acute kidney injury. He is currently in the ICU. I did discuss with the patient treatment options including risk benefits alternatives for avascular necrosis of the hip. At this time, no urgent intervention indicated. This is something that he can see as an outpatient with a joint reconstruction orthopedic provider. Would recommend pain control. He may be weightbearing as tolerated in the right hip but would probably benefit from some type of DME device to assist with ambulation. I did explain to the patient that outpatient management after his discharge from the hospital would be beneficial for him. He may follow-up with [facility] orthopedics or any other orthopedic group that he would like. Please reach out to orthopedics with any other questions or concerns. History of Present Illness Reason for Consultation: right hip pain Requesting Physician: . Attending Physician: Melissa Lyle MD El is a 59-year-old male who is being consulted today due to right hip pain and avascular necrosis that was found on CT imaging of his right hip yesterday on 02/12/2025. Patient reported to the emergency department for initially hip pain but he was found to be hypotensive and is now admitted to the ICU for acute kidney injury. Patient states that he has had right hip pain for about 3 weeks. He denies any fall, trauma or eliciting event. States that he has never had right hip or groin pain in the past. He has never been treated for right hip pain before. He states that he does not have pain with range of motion but has pain with putting weight on his right lower extremity. Other than that, no questions or concerns today regarding his right hip. To note, the patient does live in an apartment independently. He has family that checks in on him. Allergies Allergy/AdvReac Type Severity Reaction Status Date / Time No Known Allergies Allergy Verified 04/04/21 18:18 Home Medications Medication Instructions Recorded Confirmed Type aspirin 81 mg tablet,delayed 81 mg PO DAILY 04/04/21 02/12/25 History release albuterol sulfate 90 mcg/actuation 2 puff inhalation Q4H PRN 11/20/24 02/12/25 History aerosol inhaler SOB/Wheezing L.acidop,casei,lactis,rham-B.lact,sudhir 1 cap PO DAILY #7 caps 12/03/24 02/12/25 Rx 625 mg (10 billion cell) capsule (Advanced Probiotic) folic acid 1 mg tablet 1 mg PO QAM #30 tabs 12/03/24 02/12/25 Rx magnesium chloride 64 mg 128 mg (2 x 64 mg) PO BID #60 tabs 12/03/24 02/12/25 Rx (magnesium chloride) tablet,delayed release (Mag 64) thiamine HCl (vitamin B1) 100 mg 100 mg PO DAILY #30 tabs 12/03/24 02/12/25 Rx tablet white petrolatum-mineral oil 1 applic EXT BID #454 grams 12/03/24 02/12/25 Rx topical cream (Dermacerin topical cream) blood sugar diagnostic (OneTouch #100 ea 12/18/24 02/12/25 Rx Ultra Test strips) blood-glucose meter #1 ea 12/18/24 02/12/25 Rx blood-glucose sensor (FreeStyle #2 ea 12/18/24 02/12/25 Rx Rj 3 Plus Sensor device) insulin glargine 100 unit/mL 10 unit (0.1 mL) SC BID 30 days 12/18/24 02/12/25 Rx subcutaneous solution (Lantus #10 mL U-100 Insulin) lancets 30 gauge (Onetouch Delica #200 ea 12/18/24 02/12/25 Rx Safety Lancet) pen needle, diabetic 32 gauge x #100 ea 12/18/24 02/12/25 Rx 5/32" rifaximin 550 mg tablet (Xifaxan) 550 mg PO BID #60 tabs 12/18/24 02/12/25 Rx magnesium oxide 400 mg (241.3 mg 400 mg PO BID #60 tabs 01/01/25 02/12/25 Rx magnesium) tablet blood sugar diagnostic (OneTouch 02/12/25 02/12/25 History Ultra Test strips) lactulose 10 gram/15 mL oral 30 g PO TID 02/12/25 02/12/25 History solution midodrine 5 mg tablet 5 mg PO TID 02/12/25 02/12/25 History pantoprazole 40 mg tablet,delayed 40 mg PO QAM 02/12/25 02/12/25 History release potassium chloride 20 mEq 20 meq PO DAILY 02/12/25 02/12/25 History tablet,extended release(part/cryst) spironolactone 25 mg tablet 25 mg PO DAILY 02/12/25 02/12/25 History torsemide 20 mg tablet 20 mg PO BID 02/12/25 02/12/25 History Past Med/Surg History Problem List (Updated 02/13/25 @ 11:19 by Mariel Zee MD, PhD) 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 Avascular necrosis of bone of right hip (Acute) Adrenal insufficiency Shock NSVT (nonsustained ventricular tachycardia) Avascular necrosis of bone of hip Right hip pain SVT (supraventricular tachycardia) Complicated UTI (urinary tract infection) Alcoholic cirrhosis of liver Acute kidney injury superimposed on stage 3a chronic kidney disease Confusion (Acute) Noncompliance (Acute) Hypomagnesemia (Acute) Generalized weakness (Acute) Orthostatic hypotension 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 hyperplasia Acute hepatic encephalopathy Hypomagnesemia (Acute) Type 2 diabetes mellitus Urinary retention Hyperammonemia (Acute) CEE (acute kidney injury) (Acute) Altered mental status (Acute) Metabolic encephalopathy Positive blood culture Cirrhosis Sepsis Vomiting (Acute) Elevated lactic acid level (Acute) Alcohol abuse (Acute) Hypotension (Acute) Medical History Congenital cataract of both eyes Hypertension BPH NOS w ur obs/LUTS Renal calculi Retained ureteral stent Alcohol dependence Surgical History S/P ureteral stent placement S/P lens implant Family History Other Breast cancer Diabetes Heart disease Social History Smoking Status: Never smoker Second Hand Exposure: No; Do You Dip or Chew Tobacco: Yes; Hx Alcohol Use: Yes Alcohol type: beer and hard liquor Hx Substance Use: No Preferred Language: Scottish Communication Ability: Impaired 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 Family does check on him. current occupational status: disabled Feels Safe at Home: Yes Assistive Devices: Walker Review of Systems All systems reviewed & are unremarkable except as noted in HPI & below. Physical Exam General: Alert. No acute distress at today's visit. He is resting in his hospital bed. In regards to the right hip, bilateral lower extremities are symmetric in length. No deformity of the right hip. He has a negative logroll. Negative DEX and FADIR testing. He does have pain if you put pressure in the hip joint/essentially make the right hip weightbearing. He is neurovascularly intact in the right lower extremity. Constitutional WD/WN, vitals as above Cardiovascular Neurovascularly intact in the right lower extremity. Musculoskeletal please see above Results & Data Results & Data Laboratory Results . Diagnostic Findings X-ray images of the right hip on 02/12/2025: Impression: Unremarkable radiographs of the pelvis and right hip CT abdomen/pelvis IMPRESSION: No acute finding in the chest, abdomen or pelvis. There is avascular necrosis of the right femoral head without subchondral collapse. PG Care Time/CCT Total # of Minutes Spent Total Time Spent with Patient: Total time spent is greater than 50% in coordination of care (as documented) at patient's floor/unit and/or counseling patient: Coding Level of Care Code 53699 IN/OBS CONSULT LVL 4,60M Diagnoses Avascular necrosis of bone of right hip M87.051
[2025-02-13] MEDS: LACTATED RINGER'S 1,000 ML IV SCH (06:41)
[2025-02-13] MEDS ORDERED: MIDODRINE HCL 2.5 MG TAB PO SCH (07:00)
--- NOTE | 2025-02-13 07:21 | Critical Care Progress Note ---
Date of Service February 13, 2025 Assessment & Plan (1) Shock: (2) Avascular necrosis of bone of hip: (3) Right hip pain: (4) Alcoholic cirrhosis of liver: (5) Acute kidney injury superimposed on stage 3a chronic kidney disease: (6) Noncompliance: (7) Hypomagnesemia: (8) Orthostatic hypotension: (9) Adrenal insufficiency: Plan Reason Critically Ill: 59-year-old male with cirrhosis brought to the emergency room with hip pain found to be hypotensive and in acute renal failure. Avascular necrosis of the hip identified on imaging studies. He had an elevated lactate which is cleared and is found to have relative adrenal insufficiency. He has responded favorably to initiation of steroids as well as crystalloid and is now hemodynamically stable Recommendations Neuro -no current issues. Patient is awake alert and conversant. Continue to follow clinically. Will defer to primary admitting service whether or not PT and OT are required for placement as apparently this has been an issue in the past Cardiac -patient presented with hypotension and lactic acidosis. He required pressors for a brief period of time. He is now been adequately fluid resuscitated and placed on steroids for relative adrenal insufficiency. His blood pressure is acceptable. Would target systolic pressure greater than 90 given his cirrhosis. Continue midodrine. Recommend tapering steroids to off over the next 3 to 4 days as tolerated. Lactate cleared. Increase midodrine to 10 mg 3 times daily. Holding any antihypertensives as well as diuretics. Respiratory -no current issues. On room air. Out of bed to chair as tolerated with incentive spirometry GI -history of cirrhosis. No evidence of decompensation. Continue outpatient medications including rifaximin, lactulose, thiamine and folate. RENAL/LYTES -patient presented with acute renal failure. Serum creatinine improving this morning. Nephrology consultation requested by admitting service. Urine output adequate. Volume status appropriate and electrolytes stable ENDO - relative adrenal insufficiency. As noted above in cardiovascular. Glycemic control per protocol. Hemoglobin A1c 6.5 HEME/ONC/OTHER -Ortho consult for avascular necrosis. Thrombocytopenia likely secondary to cirrhosis but decreased from admission. Will need to trend over time. Okay to continue heparin for DVT prophylaxis. ID -empirically placed on cefepime vancomycin. Source presumed to be cellulitis but prior history of bacteremia. Procalcitonin 0.5. Prior urine cultures last month grew Acinetobacter which was pansensitive. LINES/TUBES/DRAINS - PIV x2 DVT PROPHYLAXIS - SQH Patient appears stable to transfer out of the intensive care unit. Critical care services will sign off. Feel free to contact us with questions or concerns Admission and Anticipated Discharge Date Admission Date: February 12, 2025 Subjective Patient seen and examined. EMR reviewed. Discussed with bedside critical care nurse as well as with overnight critical care ESSIE and on multidisciplinary rounds. Patient is awake alert and conversant this morning. He offers no complaints other than his desire to have a bowel movement. He specifically denies any chest pain, palpitations, or shortness of breath. No cough or wheezing. No dizziness or lightheadedness. Pressors have been off for almost 8 hours and he has been hemodynamically stable Review of Systems Review of Systems: All systems reviewed & are unremarkable except as noted in Subjective Physical Exam Constitutional: WD/WN, vitals as above Neck: trachea midline, no thyromegaly Respiratory: normal respiratory effort, lungs clear to auscultation Cardiovascular: RRR, no murmur, no edema Gastrointestinal (Abdomen): normal bowel sounds, soft, nontender, no hepatosplenomegaly Musculoskeletal: Extremities: extremities normal to inspection Skin: no rashes, warm and dry Neurologic: Nonfocal exam Lymphatic: no cervical lymphadenopathy Results & Data Results & Data Vital Signs (Past 12 Hours) Vital Signs Temp Pulse Pulse Resp BP BP Pulse Ox 02/13/25 05:30 36.4 C L 02/13/25 03:15 91/55 L 02/13/25 03:09 63 14 94 02/13/25 03:06 66 13 99/60 L 95 02/13/25 02:57 69 16 96 02/13/25 02:45 106/70 02/13/25 02:42 87 15 94 02/13/25 02:30 75 13 91/52 L 94 02/13/25 02:18 78 14 102/63 95 02/13/25 01:57 69 11 L 96 02/13/25 01:45 102/58 L 02/13/25 01:36 71 11 L 96 02/13/25 01:33 69 12 94/56 L 96 02/13/25 01:29 36.3 C L 02/13/25 01:15 109/63 02/13/25 01:09 66 17 105/57 L 98 02/13/25 00:54 69 97 02/13/25 00:45 72 98 06/26/25 00:30 86 93/49 L 95 02/13/25 00:27 82 95 02/13/25 00:15 97/42 L 02/13/25 00:00 75 10 L 88/52 L 99 02/12/25 23:54 68 13 99 02/12/25 23:45 95/55 L 02/12/25 23:31 102/58 L 02/12/25 23:27 78 15 99 02/12/25 23:16 115/68 02/12/25 23:15 74 14 97 02/12/25 23:00 86/48 L 02/12/25 22:54 57 L 15 100 02/12/25 22:51 55 L 15 100 02/12/25 22:33 53 L 12 99 02/12/25 22:19 02/12/25 22:06 50 L 15 113/56 L 99 02/12/25 22:04 02/12/25 22:01 36.4 C L 49 L 16 113/56 L 99 02/12/25 21:55 70/47 L 02/12/25 21:54 80 17 02/12/25 21:30 54 L 16 107/66 100 02/12/25 21:25 116/76 02/12/25 21:20 63 20 105/68 99 02/12/25 21:10 75/55 L 02/12/25 21:05 89 20 87/55 L 98 02/12/25 21:00 95/61 L 02/12/25 20:55 89 22 80/59 L 98 02/12/25 20:50 87 20 108/81 98 02/12/25 20:45 87 16 119/61 96 02/12/25 20:45 57 L 18 119/61 99 02/12/25 20:41 57 L 18 109/54 L 99 02/12/25 20:35 55 L 18 118/64 92 02/12/25 20:30 59 L 16 124/63 98 02/12/25 20:26 90 18 109/58 L 97 02/12/25 20:21 90 18 117/65 02/12/25 20:17 61 02/12/25 20:16 90 20 98/64 L 96 02/12/25 20:16 69 22 98/64 L 96 02/12/25 20:10 101/66 02/12/25 20:06 90/61 L 02/12/25 20:00 84 18 103/66 100 02/12/25 20:00 103/66 02/12/25 19:55 103/73 02/12/25 19:54 75 20 100/57 L 02/12/25 19:45 118/85 02/12/25 19:41 87 20 120/65 02/12/25 19:32 130/89 02/12/25 19:25 58 L 18 127/63 99 O2 Del Method O2 Del Method 02/13/25 05:30 02/13/25 03:15 02/13/25 03:09 02/13/25 03:06 02/13/25 02:57 02/13/25 02:45 02/13/25 02:42 02/13/25 02:30 02/13/25 02:18 02/13/25 01:57 02/13/25 01:45 02/13/25 01:36 02/13/25 01:33 02/13/25 01:29 02/13/25 01:15 02/13/25 01:09 02/13/25 00:54 02/13/25 00:45 02/13/25 00:30 02/13/25 00:27 02/13/25 00:15 02/13/25 00:00 02/12/25 23:54 02/12/25 23:45 02/12/25 23:31 02/12/25 23:27 02/12/25 23:16 02/12/25 23:15 02/12/25 23:00 02/12/25 22:54 02/12/25 22:51 02/12/25 22:33 02/12/25 22:19 Room Air 02/12/25 22:06 02/12/25 22:04 Room Air 02/12/25 22:01 Room Air 02/12/25 21:55 02/12/25 21:54 02/12/25 21:30 Room Air 02/12/25 21:25 02/12/25 21:20 Room Air 02/12/25 21:10 02/12/25 21:05 Room Air 02/12/25 21:00 02/12/25 20:55 Room Air 02/12/25 20:50 Room Air 02/12/25 20:45 Room Air 02/12/25 20:45 Room Air 02/12/25 20:41 Room Air 02/12/25 20:35 Room Air 02/12/25 20:30 Room Air 02/12/25 20:26 Room Air 02/12/25 20:21 02/12/25 20:17 02/12/25 20:16 Room Air 02/12/25 20:16 Room Air 02/12/25 20:10 02/12/25 20:06 02/12/25 20:00 Room Air 02/12/25 20:00 02/12/25 19:55 02/12/25 19:54 02/12/25 19:45 02/12/25 19:41 02/12/25 19:32 02/12/25 19:25 Room Air Critical Care Results & Data Vital Signs (Past 12 Hours) Vital Signs Temp Pulse Pulse Resp BP BP Pulse Ox 02/13/25 05:30 36.4 C L 02/13/25 03:15 91/55 L 02/13/25 03:09 63 14 94 02/13/25 03:06 66 13 99/60 L 95 02/13/25 02:57 69 16 96 02/13/25 02:45 106/70 02/13/25 02:42 87 15 94 02/13/25 02:30 75 13 91/52 L 94 02/13/25 02:18 78 14 102/63 95 02/13/25 01:57 69 11 L 96 02/13/25 01:45 102/58 L 02/13/25 01:36 71 11 L 96 02/13/25 01:33 69 12 94/56 L 96 02/13/25 01:29 36.3 C L 02/13/25 01:15 109/63 02/13/25 01:09 66 17 105/57 L 98 02/13/25 00:54 69 97 02/13/25 00:45 72 98 02/13/25 00:30 86 93/49 L 95 02/13/25 00:27 82 95 02/13/25 00:15 97/42 L 02/13/25 00:00 75 10 L 88/52 L 99 02/12/25 23:54 68 13 99 02/12/25 23:45 95/55 L 02/12/25 23:31 102/58 L 02/12/25 23:27 78 15 99 02/12/25 23:16 115/68 02/12/25 23:15 74 14 97 02/12/25 23:00 86/48 L 02/12/25 22:54 57 L 15 100 02/12/25 22:51 55 L 15 100 02/12/25 22:33 53 L 12 99 02/12/25 22:19 02/12/25 22:06 50 L 15 113/56 L 99 02/12/25 22:04 02/12/25 22:01 36.4 C L 49 L 16 113/56 L 99 02/12/25 21:55 70/47 L 02/12/25 21:54 80 17 02/12/25 21:30 54 L 16 107/66 100 02/12/25 21:25 116/76 02/12/25 21:20 63 20 105/68 99 02/12/25 21:10 75/55 L 02/12/25 21:05 89 20 87/55 L 98 02/12/25 21:00 95/61 L 02/12/25 20:55 89 22 80/59 L 98 02/12/25 20:50 87 20 108/81 98 02/12/25 20:45 87 16 119/61 96 02/12/25 20:45 57 L 18 119/61 99 02/12/25 20:41 57 L 18 109/54 L 99 02/12/25 20:35 55 L 18 118/64 92 02/12/25 20:30 59 L 16 124/63 98 02/12/25 20:26 90 18 109/58 L 97 02/12/25 20:21 90 18 117/65 02/12/25 20:17 61 02/12/25 20:16 90 20 98/64 L 96 02/12/25 20:16 69 22 98/64 L 96 02/12/25 20:10 101/66 02/12/25 20:06 90/61 L 02/12/25 20:00 84 18 103/66 100 02/12/25 20:00 103/66 02/12/25 19:55 103/73 02/12/25 19:54 75 20 100/57 L 02/12/25 19:45 118/85 02/12/25 19:41 87 20 120/65 02/12/25 19:32 130/89 02/12/25 19:25 58 L 18 127/63 99 O2 Del Method O2 Del Method 02/13/25 05:30 02/13/25 03:15 02/13/25 03:09 02/13/25 03:06 02/13/25 02:57 02/13/25 02:45 02/13/25 02:42 02/13/25 02:30 02/13/25 02:18 02/13/25 01:57 02/13/25 01:45 02/13/25 01:36 02/13/25 01:33 02/13/25 01:29 02/13/25 01:15 02/13/25 01:09 02/13/25 00:54 02/13/25 00:45 02/13/25 00:30 02/13/25 00:27 02/13/25 00:15 02/13/25 00:00 02/12/25 23:54 02/12/25 23:45 02/12/25 23:31 02/12/25 23:27 02/12/25 23:16 02/12/25 23:15 02/12/25 23:00 02/12/25 22:54 02/12/25 22:51 02/12/25 22:33 02/12/25 22:19 Room Air 02/12/25 22:06 02/12/25 22:04 Room Air 02/12/25 22:01 Room Air 02/12/25 21:55 02/12/25 21:54 02/12/25 21:30 Room Air 02/12/25 21:25 02/12/25 21:20 Room Air 02/12/25 21:10 02/12/25 21:05 Room Air 02/12/25 21:00 02/12/25 20:55 Room Air 02/12/25 20:50 Room Air 02/12/25 20:45 Room Air 02/12/25 20:45 Room Air 02/12/25 20:41 Room Air 02/12/25 20:35 Room Air 02/12/25 20:30 Room Air 02/12/25 20:26 Room Air 02/12/25 20:21 02/12/25 20:17 02/12/25 20:16 Room Air 02/12/25 20:16 Room Air 02/12/25 20:10 02/12/25 20:06 02/12/25 20:00 Room Air 02/12/25 20:00 02/12/25 19:55 02/12/25 19:54 02/12/25 19:45 02/12/25 19:41 02/12/25 19:32 02/12/25 19:25 Room Air Lab & Micro Results (Past 24 Hours) RBC 3.54 M/uL (4.70-6.10) L 02/13/25 WBC 3.84 K/ul (4.8-10.8) L 02/13/25 Hgb 11.1 g/dl (14.0-18.0) L 02/13/25 Hct 32.7 % (42.0-52.0) L 02/13/25 MCV 92.4 fL (80.0-100.0) 02/13/25 MCH 31.4 pg (25.0-34.0) 02/13/25 MCHC 33.9 g/dL (32.0-36.0) 02/13/25 RDW Standard Deviation 45.9 fL (36.4-46.3) 02/13/25 RDW Coefficient of Variation 13.6 % (11.5-14.5) 02/13/25 Plt Count 63 K/uL (130-400) L 02/13/25 MPV 11.4 fL (9.4-12.4) 02/13/25 Neutrophils (%) (Auto) 67.2 % 02/13/25 Lymphocytes (%) (Auto) 28.1 % 02/13/25 Monocytes # (Auto) 0.14 K/uL (0.11-0.59) 02/13/25 Eosinophils # (Auto) 0.01 K/uL (0.00-0.50) 02/13/25 Immature Granulocyte % (Auto) 0.0 % 02/13/25 Neutrophils # (Auto) 2.58 K/uL (1.40-6.50) 02/13/25 Lymphocytes # (Auto) 1.08 K/uL (1.20-3.40) L 02/13/25 Monocytes # (Auto) 0.14 K/uL (0.11-0.59) 02/13/25 Eosinophils # (Auto) 0.01 K/uL (0.00-0.50) 02/13/25 Basophils # (Auto) 0.03 K/uL (0.00-0.20) 02/13/25 Immature Granulocyte # (Auto) 0.00 K/uL (0.01-0.20) L 02/13 Na 136 mmol/L (136-145) 02/13/25 K 4.3 mmol/L (3.5-5.1) 02/13/25 Cl 106 mmol/L (98-107) 02/13/25 CO2 22 mmol/L (21-32) 02/13/25 Anion Gap 8 (3-11) 02/13/25 BUN 32 mg/dl (6-23) H 02/13/25 Creatinine 2.44 mg/dl (0.6-1.4) H 02/13/25 BUN/Creatinine Ratio 13.1 (10-20) 02/13/25 Glu 292 mg/dl (70-99(Fasting)) H 02/13/25 Ca 8.9 mg/dl (8.6-10.3) 02/13/25 Phosphorus Level 2.8 mg/dl (2.5-4.9) 02/13/25 Total Bilirubin 1.4 mg/dl (0.2-1.0) H 02/12/25 Direct Bilirubin 0.5 mg/dl (0-0.2) H 02/12/25 AST 38 U/L (13-39) 02/12/25 ALT 26 U/L (7-52) 02/12/25 Alkaline Phosphatase 179 U/L (34-104) H 02/12/25 TP 7.8 gm/dl (6.0-8.3) 02/12/25 Albumin 2.9 gm/dl (3.4-5.0) L 02/12/25 Mg 2.4 mg/dl (1.7-2.4) 02/13/25 04:55 Calcium Level 8.9 mg/dl (8.6-10.3) 02/13/25 04:55 Diagnostic Findings (Past 24 Hours) Hip/Pelvis X-Ray 02/12/25 17:28 Clinical History: Pain. 4 views of the pelvis and right hip are submitted for review. Findings: No fracture or dislocation is seen. No significant arthritic changes are noted. No other osseous abnormality is identified. There are no radiopaque foreign bodies. Impression: Unremarkable radiographs of the pelvis and right hip Electronically signed by Demarco Bolton 02-12-2025 6:29 PM Abdomen/Pelvis CT 02/12/25 17:41 EXAMINATION: CT of the chest, abdomen and pelvis performed without the administration of IV contrast TECHNIQUE: Helical CT images from the lung apices through the symphysis pubis were obtained without contrast. Coronal and sagittal reformatted images were generated at a workstation for further assessment. Dose reduction techniques were achieved by using automatic exposure control and/or adjustment of mA and/or kV according to patient size and/or use of iterative reconstruction technique. COMPARISON: None HISTORY: Pain FINDINGS: Lines and tubes: None Mediastinum/Neck Base: No thyroid nodules. Central tracheobronchial tree is patent. Heart size is normal. No pericardial effusion. Normal thoracic vasculature. Aortic valve calcification. No thoracic lymphadenopathy. Lungs: No consolidation. No pleural effusion or pneumothorax. Liver: Cirrhotic morphology. no suspicious liver lesions. Gallbladder: No gallstones. No evidence of acute cholecystitis. Spleen: Normal size. Pancreas: No suspicious pancreatic lesions. The pancreatic duct is not dilated. Adrenal glands: No adrenal nodules. Kidneys: No hydronephrosis or obstructing renal stones. Atrophic appearance of the right kidney. Bladder / Pelvic organs: Unremarkable. Bowel: No bowel obstruction. No abnormal bowel wall thickening. The appendix is unremarkable. Lymph nodes: No retroperitoneal, mesenteric, or pelvic lymphadenopathy. Peritoneum / Retroperitoneum: No free fluid or air within the abdomen. Vessels: No infrarenal aortic aneurysm. Bones and soft tissues: Degenerative changes of the spine. No acute osseous normality. Avascular necrosis of the right femoral head. IMPRESSION: No acute finding in the chest, abdomen or pelvis. There is avascular necrosis of the right femoral head without subchondral collapse. The lungs are clear. Electronically signed by Casey Sutherland 02-12-2025 6:[address] 02/12/25 17:46 EXAMINATION: CT of the chest, abdomen and pelvis performed without the administration of IV contrast TECHNIQUE: Helical CT images from the lung apices through the symphysis pubis were obtained without contrast. Coronal and sagittal reformatted images were generated at a workstation for further assessment. Dose reduction techniques were achieved by using automatic exposure control and/or adjustment of mA and/or kV according to patient size and/or use of iterative reconstruction technique. COMPARISON: None HISTORY: Pain FINDINGS: Lines and tubes: None Mediastinum/Neck Base: No thyroid nodules. Central tracheobronchial tree is patent. Heart size is normal. No pericardial effusion. Normal thoracic vasculature. Aortic valve calcification. No thoracic lymphadenopathy. Lungs: No consolidation. No pleural effusion or pneumothorax. Liver: Cirrhotic morphology. no suspicious liver lesions. Gallbladder: No gallstones. No evidence of acute cholecystitis. Spleen: Normal size. Pancreas: No suspicious pancreatic lesions. The pancreatic duct is not dilated. Adrenal glands: No adrenal nodules. Kidneys: No hydronephrosis or obstructing renal stones. Atrophic appearance of the right kidney. Bladder / Pelvic organs: Unremarkable. Bowel: No bowel obstruction. No abnormal bowel wall thickening. The appendix is unremarkable. Lymph nodes: No retroperitoneal, mesenteric, or pelvic lymphadenopathy. Peritoneum / Retroperitoneum: No free fluid or air within the abdomen. Vessels: No infrarenal aortic aneurysm. Bones and soft tissues: Degenerative changes of the spine. No acute osseous normality. Avascular necrosis of the right femoral head. IMPRESSION: No acute finding in the chest, abdomen or pelvis. There is avascular necrosis of the right femoral head without subchondral collapse. The lungs are clear. Electronically signed by Casey Sutherland 02-12-2025 6:14 PM I & O Totals 24 Hours 02/12/25 02/13/25 02/14/25 06:59 06:59 06:59 Intake Total 4578.602 / 4578.602 Output Total 501 / 501 Balance 4077.602 / 4077.602 Cumulative 02/12/25 17:03 thru 02/13/25 06:36 Intake Total 4578.602 Output Total 501 Balance 4077.602 RT Ventilator Mngmt (Last Documented) Ventilator Ordered Settings Respiratory Rate 14 02/13/25 03:09 Ventilator - PT Measurements Respiratory Rate 14 Coding Level of Care Code 24555 SUB INP/OBS CARE 3/50MIN Diagnoses Shock R57.9 Avascular necrosis of bone of hip M87.059 Right hip pain M25.551 Alcoholic cirrhosis, unspecified whether ascites present K70.30 Ascites presence: unspecified Acute kidney injury superimposed on stage 3a chronic kidney disease N17.9; N18.31 Noncompliance Z91.199 Hypomagnesemia E83.42 Orthostatic hypotension I95.1 Adrenal insufficiency E27.40 (4) Alcoholic cirrhosis of liver Ascites presence: unspecified Qualified Code(s): K70.30 - Alcoholic cirrhosis of liver without ascites
--- NOTE | 2025-02-13 07:22 | Nephrology Consultation ---
Date of Consultation February 13, 2025 Assessment & Plan (1) Acute kidney injury superimposed on stage 3a chronic kidney disease: resolving stage 2 CEE on CKD3 in pt w/ chronic fluid/electrolyte challenges stemming mostly from nonadherence, EtOH use. has had SVT in this setting in december 2024. baseline creatinine 1.2-1.8, variable. presented w/ creat 3.7, down to 2.4 this am. Admission urine completely bland. CT non con w/o acute abd/pelvic findings. -cont daily bmp and nephrotoxin avoidance -f/u cxs -maintain K 4, mag 2 -maintain renal perfusion, keep MAP >65 as able (2) Adrenal insufficiency: cont steroids (3) Shock: resolved w/ supportive care; brief pressor need; (4) 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: midodrine dependent on a normal day and often asx w/ this. multifactorial from EtOH and DM. -monitor orthostatics periodically when feasible/safe History of Present Illness Reason for Consultation: CEE on CKD Requesting Physician: Dr Meehan Attending Physician: Melissa Lyle MD History of Present Illness 59 y/o M whom I'm asked to see for CEE on CKD was admitted last evening from home to ICU b/c of CEE and pressor-dependent multifactorial shock in the setting of R hip/femoral head avascular necrosis, inability to ambulate, concern for cellulitis. 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 Recently musa w/ Dr Lucas in CKD clinic; seen earlier this month and creatinine up to 1.8 at that 02/04 visit from 1.2 on 01/20 w/ SBP in 70-80s and + orthostatics; midodrine was increased to 5 mg tid and torsemid dose lowered to 20 mg bid; EtOH abstinence urged; K supplements lowered. Baseline creatinine in 2023 ranges 1.2-1.8, quite labile. On arrival to ED last evening SBP in 70s w/o sx reportedly and w/o improvement despite 3L NS and midodrine dose; did improve w/ norepinephrine. Presenting creatinine and mag 3.7(improved to 2.4 today) and 1.4 (improved to 2.4) respectively. K was wnl. AG 15 on presentation w/ lactate low 2's > latter normalized. Presenting cortisol <3 and ammonia 74. he endorsed a few days of challenges abmulating despite using walker. recently d/c from SNF after acute rehab from recent admission. Pt lives alone and family assists w/ medications, groceries but concern pt can't care for himself. actively using EtOH since recent hopsital d/c last month. he has made >500 mL urine and is on RA. pressors have been weaned. on empiric cefepime and vancomycin; on steroids for relative adrenal insufficiency. orthopedics evaluated the pt and no urgent intervention needed. blood cxs NGTD. Allergies Allergy/AdvReac Type Severity Reaction Status Date / Time No Known Allergies Allergy Verified 04/04/21 18:18 Home Medications Medication Instructions Recorded Confirmed Type aspirin 81 mg tablet,delayed 81 mg PO DAILY 04/04/21 02/12/25 History release albuterol sulfate 90 mcg/actuation 2 puff inhalation Q4H PRN 11/20/24 02/12/25 History aerosol inhaler SOB/Wheezing L.acidop,casei,lactis,rham-B.lact,sudhir 1 cap PO DAILY #7 caps 12/03/24 02/12/25 Rx 625 mg (10 billion cell) capsule (Advanced Probiotic) folic acid 1 mg tablet 1 mg PO QAM #30 tabs 12/03/24 02/12/25 Rx magnesium chloride 64 mg 128 mg (2 x 64 mg) PO BID #60 tabs 12/03/24 02/12/25 Rx (magnesium chloride) tablet,delayed release (Mag 64) thiamine HCl (vitamin B1) 100 mg 100 mg PO DAILY #30 tabs 12/03/24 02/12/25 Rx tablet white petrolatum-mineral oil 1 applic EXT BID #454 grams 12/03/24 02/12/25 Rx topical cream (Dermacerin topical cream) blood sugar diagnostic (Quotations BookTouch #100 ea 12/18/24 02/12/25 Rx Ultra Test strips) blood-glucose meter #1 ea 12/18/24 02/12/25 Rx blood-glucose sensor (FreeStyle #2 ea 12/18/24 02/12/25 Rx Rj 3 Plus Sensor device) insulin glargine 100 unit/mL 10 unit (0.1 mL) SC BID 30 days 12/18/24 02/12/25 Rx subcutaneous solution (Lantus #10 mL U-100 Insulin) lancets 30 gauge ([facility] Delica #200 ea 12/18/24 02/12/25 Rx Safety Lancet) pen needle, diabetic 32 gauge x #100 ea 12/18/24 02/12/25 Rx 5/32" rifaximin 550 mg tablet (Xifaxan) 550 mg PO BID #60 tabs 12/18/24 02/12/25 Rx magnesium oxide 400 mg (241.3 mg 400 mg PO BID #60 tabs 01/01/25 02/12/25 Rx magnesium) tablet blood sugar diagnostic ([facility] 02/12/25 02/12/25 History Ultra Test strips) lactulose 10 gram/15 mL oral 30 g PO TID 02/12/25 02/12/25 History solution midodrine 5 mg tablet 5 mg PO TID 02/12/25 02/12/25 History pantoprazole 40 mg tablet,delayed 40 mg PO QAM 02/12/25 02/12/25 History release potassium chloride 20 mEq 20 meq PO DAILY 02/12/25 02/12/25 History tablet,extended release(part/cryst) spironolactone 25 mg tablet 25 mg PO DAILY 02/12/25 02/12/25 History torsemide 20 mg tablet 20 mg PO BID 02/12/25 02/12/25 History Patient History Medical History Congenital cataract of both eyes Hypertension BPH NOS w ur obs/LUTS Renal calculi Retained ureteral stent Alcohol dependence Surgical History S/P ureteral stent placement S/P lens implant Family History Other Breast cancer Diabetes Heart disease Social History Smoking Status: Never smoker Second Hand Exposure: No; Do You Dip or Chew Tobacco: Yes; Hx Alcohol Use: Yes Alcohol type: beer and hard liquor Hx Substance Use: No Preferred Language: French Communication Ability: Impaired 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 Family does check on him. current occupational status: disabled Feels Safe at Home: Yes Assistive Devices: Walker Review of Systems 2 Review of Systems: Other (limited by [place], poor visual acuity, limited insight) Physical Exam 2 Constitutional: well developed, average body habitus, + behavioral limitations and + frail appearing; no acute distress Eyes: EOM intact bilaterally (poor visual acuity) ENMT: Ears: + hearing impairment Mouth: + dry oral mucous membranes Respiratory: normal respiratory effort Auscultation: + diminished lung sounds Cardiovascular: RRR, no murmur, no edema Gastrointestinal (Abdomen): Inspection/Auscultation: normal bowel sounds P ercussion/Palpation: abdomen soft; abdomen nontender Musculoskeletal: Extremities: strength 5/5 throughout Skin: no rashes, warm and dry Trauma: + evidence of skin trauma (excoriation, abrasions wilfredo L pretibial) Neurologic: cook, fluent speech, no tremor Results & Data Vital Signs (Past 12 Hours) Vital Signs Temp Pulse Pulse Resp BP BP Pulse Ox 02/13/25 05:30 36.4 C L 02/13/25 03:15 91/55 L 02/13/25 03:09 63 14 94 02/13/25 03:06 66 13 99/60 L 95 02/13/25 02:57 69 16 96 02/13/25 02:45 106/70 02/13/25 02:42 87 15 94 02/13/25 02:30 75 13 91/52 L 94 02/13/25 02:18 78 14 102/63 95 02/13/25 01:57 69 11 L 96 02/13/25 01:45 102/58 L 02/13/25 01:36 71 11 L 96 02/13/25 01:33 69 12 94/56 L 96 02/13/25 01:29 36.3 C L 02/13/25 01:15 109/63 02/13/25 01:09 66 17 105/57 L 98 02/13/25 00:54 69 97 02/13/25 00:45 72 98 02/13/25 00:30 86 93/49 L 95 02/13/25 00:27 82 95 02/13/25 00:15 97/42 L 02/13/25 00:00 75 10 L 88/52 L 99 02/12/25 23:54 68 13 99 02/12/25 23:45 95/55 L 02/12/25 23:31 102/58 L 02/12/25 23:27 78 15 99 02/12/25 23:16 115/68 02/12/25 23:15 74 14 97 02/12/25 23:00 86/48 L 02/12/25 22:54 57 L 15 100 02/12/25 22:51 55 L 15 100 02/12/25 22:33 53 L 12 99 02/12/25 22:19 02/12/25 22:06 50 L 15 113/56 L 99 02/12/25 22:04 02/12/25 22:01 36.4 C L 49 L 16 113/56 L 99 02/12/25 21:55 70/47 L 02/12/25 21:54 80 17 02/12/25 21:30 54 L 16 107/66 100 02/12/25 21:25 116/76 02/12/25 21:20 63 20 105/68 99 02/12/25 21:10 75/55 L 02/12/25 21:05 89 20 87/55 L 98 02/12/25 21:00 95/61 L 02/12/25 20:55 89 22 80/59 L 98 02/12/25 20:50 87 20 108/81 98 02/12/25 20:45 87 16 119/61 96 02/12/25 20:45 57 L 18 119/61 99 02/12/25 20:41 57 L 18 109/54 L 99 02/12/25 20:35 55 L 18 118/64 92 02/12/25 20:30 59 L 16 124/63 98 02/12/25 20:26 90 18 109/58 L 97 02/12/25 20:21 90 18 117/65 02/12/25 20:17 61 02/12/25 20:16 90 20 98/64 L 96 02/12/25 20:16 69 22 98/64 L 96 02/12/25 20:10 101/66 02/12/25 20:06 90/61 L 02/12/25 20:00 84 18 103/66 100 02/12/25 20:00 103/66 02/12/25 19:55 103/73 02/12/25 19:54 75 20 100/57 L 02/12/25 19:45 118/85 02/12/25 19:41 87 20 120/65 02/12/25 19:32 130/89 02/12/25 19:25 58 L 18 127/63 99 O2 Del Method O2 Del Method 02/13/25 05:30 02/13/25 03:15 02/13/25 03:09 02/13/25 03:06 02/13/25 02:57 02/13/25 02:45 02/13/25 02:42 02/13/25 02:30 02/13/25 02:18 02/13/25 01:57 02/13/25 01:45 02/13/25 01:36 02/13/25 01:33 02/13/25 01:29 02/13/25 01:15 02/13/25 01:09 02/13/25 00:54 02/13/25 00:45 02/13/25 00:30 02/13/25 00:27 02/13/25 00:15 02/13/25 00:00 02/12/25 23:54 02/12/25 23:45 02/12/25 23:31 02/12/25 23:27 02/12/25 23:16 02/12/25 23:15 02/12/25 23:00 02/12/25 22:54 02/12/25 22:51 02/12/25 22:33 02/12/25 22:19 Room Air 02/12/25 22:06 02/12/25 22:04 Room Air 02/12/25 22:01 Room Air 02/12/25 21:55 02/12/25 21:54 02/12/25 21:30 Room Air 02/12/25 21:25 02/12/25 21:20 Room Air 02/12/25 21:10 02/12/25 21:05 Room Air 02/12/25 21:00 02/12/25 20:55 Room Air 02/12/25 20:50 Room Air 02/12/25 20:45 Room Air 02/12/25 20:45 Room Air 02/12/25 20:41 Room Air 02/12/25 20:35 Room Air 02/12/25 20:30 Room Air 02/12/25 20:26 Room Air 02/12/25 20:21 02/12/25 20:17 02/12/25 20:16 Room Air 02/12/25 20:16 Room Air 02/12/25 20:10 02/12/25 20:06 02/12/25 20:00 Room Air 02/12/25 20:00 02/12/25 19:55 02/12/25 19:54 02/12/25 19:45 02/12/25 19:41 02/12/25 19:32 02/12/25 19:25 Room Air Laboratory Results 02/13/25 04:55 02/13/25 04:55
[2025-02-13 07:23] LABS: Estimated Average Glucose 140 mg/dl; Hemoglobin A1C 6.5 % (4.5-5.6)
[2025-02-13] MEDS ORDERED: ICU Protocol for HYPERglycemia SCH (07:30)
[2025-02-13] MEDS: MIDODRINE HCL 2.5 MG TAB PO SCH (07:36)
[2025-02-13] MEDS: MULTIVITAMIN TAB PO SCH (07:38)
[2025-02-13] MEDS: PANTOprazole 40 MG TAB PO SCH (07:40)
[2025-02-13] MEDS: FOLIC ACID 1 MG TAB PO SCH (07:40)
[2025-02-13] MEDS: THIAMINE HCL 100 MG TAB PO SCH (07:41)
[2025-02-13] MEDS: ASPIRIN 81 MG ECTAB PO SCH (07:41)
[2025-02-13] MEDS: FLUDROCORTISONE ACETATE 0.1 MG TAB PO SCH (07:42)
[2025-02-13] MEDS: HEPARIN SOD 5,000 UNIT/0.5 ML VIAL SQ SCH (07:51)
[2025-02-13] MEDS ORDERED: DOXYCYCLINE HYCLATE 100 MG CAP PO SCH (09:00)
[2025-02-13] MEDS ORDERED: CEFEPIME 1000MG 1,000 MG/10 ML SYR IV SCH (10:00)
[2025-02-13] MEDS: LANTUS PER UNIT CHARGE SC SCH (10:12)
[2025-02-13] MEDS: AMPICILLIN/SULBACTAM SOD 3,000 MG/100 ML BAG IV SCH (10:13)
[2025-02-13] MEDS: MIDODRINE HCL 10 MG TAB PO SCH (11:23)
--- NOTE | 2025-02-13 13:36 | Hospitalist Progress Note ---
Date of Service February 13, 2025 Assessment & Plan (1) Acute kidney injury superimposed on stage 3a chronic kidney disease: (2) Orthostatic hypotension: (3) Hypotension: (4) Avascular necrosis of bone of hip: (5) Right hip pain: (6) NSVT (nonsustained ventricular tachycardia): (7) Alcoholic cirrhosis of liver: (8) Type 2 diabetes mellitus: Plan Patient is 59-year-old man with PMH alcoholic cirrhosis, thrombocytopenia, DM II, CKD III, chronic hyponatremia, orthostasis on midodrine, NSVT, congenital cataracts, bilateral hearing loss, and others listed below presented to ER with complaint of right hip pain. Right Hip Pain Avascular Necrosis, R Hip XRAY hip unremarkable CT abd/pelvis noting AVN R hip Orthopedics consulted, appreciate recs. Recommended/stated the following: "...At this time, no urgent intervention indicated. This is something that he can see as an outpatient with a joint reconstruction orthopedic provider. Would recommend pain control. He may be weightbearing as tolerated in the right hip but would probably benefit from some type of DME device to assist with ambulation. I did explain to the patient that outpatient management after his discharge from the hospital would be beneficial for him. [facility] or any other orthopedic group that he would like..." Pain control prn Persistent hypotension likely from hypovolemia Required pressor support temporarily in the ICU Holding home diuretics titrate midodrine as needed On steroids for possible adrenal insufficiency component On very gentle IV fluids BP currently improved, weaned off of pressors and downgraded Acute Kidney Injury on CKD Cr 3.7 on admission secondary to illness (baseline creatinine up to 1.8 as per outpatient Nephrology records) History hypotension on midodrine, possible underlying DM autonomic neuropathy, ? Midodrine noncompliance Monitor creatinine response to IVF, hold home diuretics for now until creatinine back to baseline Nephrology consulted, appreciate recs Possible Cellulitis Lower extremity picking Blood Cx pending On empiric doxycycline, continue Chronic Medical Problems: History PSVT Alcohol cirrhosis, no overt decompensation, AWSS at risk protocol, DT precautions DM2, insulin requiring, suboptimal control as of recent hemoglobin A1c of 10 from November 2024, ISS BG goal 140-180 at the ICU, carb count coverage Intellectual impairment/anoxic brain injury as per records Recurrent admissions, likely functional disability, patient has poor insight on medical issues as per provider notes. DVT prophylaxis. SCDs Re: Thrombocytopenia Full code Admission and Anticipated Discharge Date Admission Date: February 12, 2025 Subjective Pt was seen while still down in the ICU Per Network Specialist, stable for downgrade, has been off of pressors since midnight On exam pt hard of hearing, difficult to communicate. Review of Systems Review of Systems: All systems reviewed & are unremarkable except as noted in Subjective Physical Exam Physical Exam: General: Alert. No acute distress Neuro: NELSON LAGOON HEENT: NC/AT CV: RRR Resp: Breath sounds decreased bilaterally, no increased effort of breathing Abdomen: Soft, nontender Extremities: No edema in lower extremities bilaterally. Results & Data Results & Data Vital Signs (Past 12 Hours) Vital Signs Temp Pulse Resp BP Pulse Ox O2 Del Method 02/13/25 11:44 36.5 C 02/13/25 11:00 85 18 113/71 98 Room Air 02/13/25 11:00 113/71 02/13/25 11:00 113/71 02/13/25 11:00 113/71 02/13/25 10:51 61 18 99 02/13/25 10:03 89 15 98 02/13/25 10:00 112/63 02/13/25 10:00 112/63 02/13/25 09:45 85 13 98 02/13/25 09:00 104/66 02/13/25 09:00 104/66 02/13/25 08:48 77 17 99 02/13/25 08:36 Room Air 02/13/25 08:03 91 H 11 L 99 02/13/25 08:00 111/74 02/13/25 07:48 96 H 11 L 97 02/13/25 07:24 36.4 C L 02/13/25 07:15 76 11 L 100 02/13/25 07:03 57 L 12 96 Room Air 02/13/25 07:00 110/62 02/13/25 07:00 110/62 02/13/25 06:57 60 12 98 02/13/25 06:51 88 14 97 02/13/25 05:30 36.4 C L 02/13/25 03:15 91/55 L 02/13/25 03:09 63 14 94 02/13/25 03:06 66 13 99/60 L 95 02/13/25 02:57 69 16 96 02/13/25 02:45 106/70 02/13/25 02:42 87 15 94 02/13/25 02:30 75 13 91/52 L 94 02/13/25 02:18 78 14 102/63 95 02/13/25 01:57 69 11 L 96 02/13/25 01:45 102/58 L Diagnostic Findings Hip/Pelvis X-Ray 02/12/25 17:28 Clinical History: Pain. 4 views of the pelvis and right hip are submitted for review. Findings: No fracture or dislocation is seen. No significant arthritic changes are noted. No other osseous abnormality is identified. There are no radiopaque foreign bodies. Impression: Unremarkable radiographs of the pelvis and right hip Electronically signed by Demarco Bolton 02-12-2025 6:29 PM Abdomen/Pelvis CT 02/12/25 17:41 EXAMINATION: CT of the chest, abdomen and pelvis performed without the administration of IV contrast TECHNIQUE: Helical CT images from the lung apices through the symphysis pubis were obtained without contrast. Coronal and sagittal reformatted images were generated at a workstation for further assessment. Dose reduction techniques were achieved by using automatic exposure control and/or adjustment of mA and/or kV according to patient size and/or use of iterative reconstruction technique. COMPARISON: None HISTORY: Pain FINDINGS: Lines and tubes: None Mediastinum/Neck Base: No thyroid nodules. Central tracheobronchial tree is patent. Heart size is normal. No pericardial effusion. Normal thoracic vasculature. Aortic valve calcification. No thoracic lymphadenopathy. Lungs: No consolidation. No pleural effusion or pneumothorax. Liver: Cirrhotic morphology. no suspicious liver lesions. Gallbladder: No gallstones. No evidence of acute cholecystitis. Spleen: Normal size. Pancreas: No suspicious pancreatic lesions. The pancreatic duct is not dilated. Adrenal glands: No adrenal nodules. Kidneys: No hydronephrosis or obstructing renal stones. Atrophic appearance of the right kidney. Bladder / Pelvic organs: Unremarkable. Bowel: No bowel obstruction. No abnormal bowel wall thickening. The appendix is unremarkable. Lymph nodes: No retroperitoneal, mesenteric, or pelvic lymphadenopathy. Peritoneum / Retroperitoneum: No free fluid or air within the abdomen. Vessels: No infrarenal aortic aneurysm. Bones and soft tissues: Degenerative changes of the spine. No acute osseous normality. Avascular necrosis of the right femoral head. IMPRESSION: No acute finding in the chest, abdomen or pelvis. There is avascular necrosis of the right femoral head without subchondral collapse. The lungs are clear. Electronically signed by Casey Sutherland 02-12-2025 6:[address] 02/12/25 17:46 EXAMINATION: CT of the chest, abdomen and pelvis performed without the administration of IV contrast TECHNIQUE: Helical CT images from the lung apices through the symphysis pubis were obtained without contrast. Coronal and sagittal reformatted images were generated at a workstation for further assessment. Dose reduction techniques were achieved by using automatic exposure control and/or adjustment of mA and/or kV according to patient size and/or use of iterative reconstruction technique. COMPARISON: None HISTORY: Pain FINDINGS: Lines and tubes: None Mediastinum/Neck Base: No thyroid nodules. Central tracheobronchial tree is patent. Heart size is normal. No pericardial effusion. Normal thoracic vasculature. Aortic valve calcification. No thoracic lymphadenopathy. Lungs: No consolidation. No pleural effusion or pneumothorax. Liver: Cirrhotic morphology. no suspicious liver lesions. Gallbladder: No gallstones. No evidence of acute cholecystitis. Spleen: Normal size. Pancreas: No suspicious pancreatic lesions. The pancreatic duct is not dilated. Adrenal glands: No adrenal nodules. Kidneys: No hydronephrosis or obstructing renal stones. Atrophic appearance of the right kidney. Bladder / Pelvic organs: Unremarkable. Bowel: No bowel obstruction. No abnormal bowel wall thickening. The appendix is unremarkable. Lymph nodes: No retroperitoneal, mesenteric, or pelvic lymphadenopathy. Peritoneum / Retroperitoneum: No free fluid or air within the abdomen. Vessels: No infrarenal aortic aneurysm. Bones and soft tissues: Degenerative changes of the spine. No acute osseous normality. Avascular necrosis of the right femoral head. IMPRESSION: No acute finding in the chest, abdomen or pelvis. There is avascular necrosis of the right femoral head without subchondral collapse. The lungs are clear. 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
[2025-02-14 06:55] LABS: Basophils # (auto) 0.02 K/uL (0.00-0.20); Basophils % (auto) 0.2 %; Hematocrit (blood only) 36.9 % (42.0-52.0); Hemoglobin 12.4 g/dl (14.0-18.0); Immature Granulocytes # (auto) 0.07 K/uL (0.01-0.20); Immature Granulocytes % (auto) 0.6 %; Lymphocytes # (auto) 1.38 K/uL (1.20-3.40); Lymphocytes % (auto) 11.6 %; Mean Corpuscular Hemoglobin 31.6 pg (25.0-34.0); Mean Corpuscular Hgb Conc 33.6 g/dL (32.0-36.0); Mean Corpuscular Volume 94.1 fL (80.0-100.0); Mean Platelet Volume 11.7 fL (9.4-12.4); Monocytes # (auto) 0.44 K/uL (0.11-0.59); Monocytes % (auto) 3.7 %; Neutrophils # (auto) 9.94 K/uL (1.40-6.50); Neutrophils % (auto) 83.9 %; Platelet Count 65 K/uL (130-400); RDW Coefficient of Variation 13.5 % (11.5-14.5); RDW Standard Deviation 46.4 fL (36.4-46.3); Red Blood Count 3.92 M/uL (4.70-6.10); White Blood Count 11.85 K/ul (4.8-10.8)
[2025-02-14 07:16] LABS: Albumin Globulin Ratio 0.6 (0.9-2); BUN Creatinine Ratio 18.9 (10-20); Bilirubin,Total 1.4 mg/dl (0.2-1.0); Calcium 9.6 mg/dl (8.6-10.3); Creatinine Clr Calc Pharmacy 41.9 ml/min; Globulin 4.5 gm/dl (2.5-4.0); Magnesium 1.8 mg/dl (1.7-2.4); Phosphorus 3.6 mg/dl (2.5-4.9); Potassium 4.1 mmol/L (3.5-5.1); Total Protein 7.4 gm/dl (6.0-8.3)
--- NOTE | 2025-02-14 10:42 | Nephrology Progress Note ---
Date of Service February 14, 2025 Assessment & Plan (1) Acute kidney injury superimposed on stage 3a chronic kidney disease: Plan: further resolving stage 2 CEE on CKD3 in pt w/ chronic fluid/electrolyte challenges stemming mostly from nonadherence, EtOH use. has had SVT in this setting in december 2024. baseline creatinine 1.2-1.8, variable. presented w/ creat 3.7, down to 2.4 this am. Admission urine completely bland. CT non con w/o acute abd/pelvic findings. -cont daily bmp and nephrotoxin avoidance -continue LR while in house -f/u cxs -maintain K 4, mag 2 -maintain renal perfusion, keep MAP >65 as able Will sign off NEPH D/C RECS DX: prerenal stage 2 CEE on CKD3 in pt w/ labile renal function RX: -resume prior to admission midodrine, potassium, spironolactone -lower torsemide dose to 20 mg daily from bid OTHER F/U CARE: -BMP w/ mag weekly x 3 to be ordered by neph nurse under Dr Lucas F/U APPT: -hospital d/c appt w/ Dr Lucas 3 wks after hosp d/c (2) Adrenal insufficiency: Plan: cont steroids (3) Shock: Plan: resolved w/ supportive care; brief pressor need; (4) 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: Plan: midodrine dependent on a normal day and often asx w/ this. multifactorial from EtOH and DM. -monitor orthostatics periodically when feasible/safe Admission and Anticipated Discharge Date Admission Date: February 12, 2025 Subjective no acute interval events. wants d/c. denies sob pain N; ROS limited by hearing/vision Review of Systems 2 Review of Systems: All systems reviewed & are unremarkable except as noted in Subjective Physical Exam 2 Constitutional: well developed, average body habitus, + behavioral limitations and + frail appearing; no acute distress Eyes: EOM intact bilaterally (poor visual acuity) ENMT: Ears: + hearing impairment Mouth: + dry oral mucous membranes Respiratory: normal respiratory effort Auscultation: + diminished lung sounds Cardiovascular: RRR, no murmur, no edema Gastrointestinal (Abdomen): Inspection/Auscultation: normal bowel sounds P ercussion/Palpation: abdomen soft; abdomen nontender Musculoskeletal: Extremities: strength 5/5 throughout Skin: no rashes, warm and dry Trauma: + evidence of skin trauma (excoriation, abrasions wilfredo L pretibial) Results & Data Vital Signs (Past 12 Hours) Vital Signs Temp Pulse Pulse Resp BP Pulse Ox O2 Del Method 02/14/25 07:40 36.3 C L 54 L 17 130/79 100 Room Air 02/14/25 07:22 99 H 02/14/25 02:38 36.3 C L 57 L 16 139/81 100 Room Air 02/14/25 00:00 99 H 02/13/25 23:03 36.3 C L 60 16 125/70 99 Room Air Laboratory Results 02/14/25 06:26 02/14/25 06:26
--- NOTE | 2025-02-14 14:00 | Hospitalist Progress Note ---
Date of Service February 14, 2025 Assessment & Plan (1) Acute kidney injury superimposed on stage 3a chronic kidney disease: (2) Orthostatic hypotension: (3) Hypotension: (4) Avascular necrosis of bone of hip: (5) Right hip pain: (6) NSVT (nonsustained ventricular tachycardia): (7) Alcoholic cirrhosis of liver: (8) Type 2 diabetes mellitus: Plan Patient is 59-year-old man with PMH alcoholic cirrhosis, thrombocytopenia, DM II, CKD III, chronic hyponatremia, orthostasis on midodrine, NSVT, congenital cataracts, bilateral hearing loss, and others listed below presented to ER with complaint of right hip pain. Right Hip Pain Avascular Necrosis, R Hip XRAY hip unremarkable CT abd/pelvis noting AVN R hip Orthopedics consulted, appreciate recs. Recommended/stated the following: "...At this time, no urgent intervention indicated. This is something that he can see as an outpatient with a joint reconstruction orthopedic provider. Would recommend pain control. He may be weightbearing as tolerated in the right hip but would probably benefit from some type of DME device to assist with ambulation. I did explain to the patient that outpatient management after his discharge from the hospital would be beneficial for him. He may follow-up with [facility] orthopedics or any other orthopedic group that he would like..." Pain control prn Persistent hypotension likely from hypovolemia Required pressor support temporarily in the ICU Holding home diuretics titrate midodrine as needed On steroids for possible adrenal insufficiency component- being weaned On very gentle IV fluids BP currently improved, weaned off of pressors and downgraded Acute Kidney Injury on CKD Cr 3.7 on admission secondary to illness (baseline creatinine up to 1.8 as per outpatient Nephrology records) History hypotension on midodrine, possible underlying DM autonomic neuropathy, ? Midodrine noncompliance Monitor creatinine response to IVF, hold home diuretics for now until creatinine back to baseline Nephrology consulted, appreciate recs Possible Cellulitis Lower extremity picking Blood Cx pending On empiric Unasyn, continue Chronic Medical Problems: History PSVT Alcohol cirrhosis, no overt decompensation, AWSS at risk protocol, DT precautions DM2, insulin requiring, suboptimal control as of recent hemoglobin A1c of 10 from November 2024, ISS BG goal 140-180 at the ICU, carb count coverage Intellectual impairment/anoxic brain injury as per records Recurrent admissions, likely functional disability, patient has poor insight on medical issues as per provider notes. DVT prophylaxis. SCDs Re: Thrombocytopenia Full code Admission and Anticipated Discharge Date Admission Date: February 12, 2025 Subjective Pt was seen in the AM sitting up in bed Denied acute concerns Hard of hearing Asking about discharge Review of Systems Review of Systems: All systems reviewed & are unremarkable except as noted in Subjective Physical Exam Physical Exam: General: Alert. No acute distress Neuro: [place] HEENT: NC/AT CV: RRR Resp: Breath sounds decreased bilaterally, no increased effort of breathing Abdomen: Soft, nontender Extremities: No edema in lower extremities bilaterally. Results & Data Results & Data Vital Signs (Past 12 Hours) Vital Signs Temp Pulse Pulse Resp BP Pulse Ox O2 Del Method 02/14/25 12:18 36.3 C L 79 20 127/76 99 Room Air 02/14/25 07:40 36.3 C L 54 L 17 130/79 100 Room Air 02/14/25 07:22 99 H 02/14/25 02:38 36.3 C L 57 L 16 139/81 100 Room Air (3) Hypotension Hypotension type: unspecified hypotension type Qualified Code(s): I95.9 - Hypotension, unspecified (7) Alcoholic cirrhosis of liver Ascites presence: unspecified Qualified Code(s): K70.30 - Alcoholic cirrhosis of liver without ascites (8) Type 2 diabetes mellitus Diabetes mellitus complication status: with other specified complication 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
[2025-02-14] MEDS: HYDROCORTISONE SOD 50 MG in SYRINGE 0 ML IV SCH (20:21)
[2025-02-15 07:27] LABS: Hematocrit (blood only) 33.9 % (42.0-52.0); Hemoglobin 11.7 g/dl (14.0-18.0); Immature Granulocytes # (auto) 0.06 K/uL (0.01-0.20); Immature Granulocytes % (auto) 0.6 %; Lymphocytes % (auto) 17.1 %; Mean Corpuscular Hemoglobin 31.9 pg (25.0-34.0); Mean Corpuscular Hgb Conc 34.5 g/dL (32.0-36.0); Mean Corpuscular Volume 92.4 fL (80.0-100.0); Mean Platelet Volume 12.2 fL (9.4-12.4); Monocytes # (auto) 0.62 K/uL (0.11-0.59); Monocytes % (auto) 5.9 %; Neutrophils # (auto) 8.02 K/uL (1.40-6.50); Neutrophils % (auto) 76.4 %; Platelet Count 64 K/uL (130-400); RDW Coefficient of Variation 13.5 % (11.5-14.5); RDW Standard Deviation 45.7 fL (36.4-46.3); Red Blood Count 3.67 M/uL (4.70-6.10)
[2025-02-15 07:42] LABS: Albumin Globulin Ratio 0.7 (0.9-2); BUN Creatinine Ratio 22.5 (10-20); Bilirubin,Total 1.2 mg/dl (0.2-1.0); Calcium 9.6 mg/dl (8.6-10.3); Creatinine Clr Calc Pharmacy 59.4 ml/min; Globulin 4.3 gm/dl (2.5-4.0); Magnesium 1.5 mg/dl (1.7-2.4); Phosphorus 3.7 mg/dl (2.5-4.9); Potassium 3.9 mmol/L (3.5-5.1); Total Protein 7.1 gm/dl (6.0-8.3)
[2025-02-15] MEDS: MAGNESIUM OXIDE 400 MG TAB PO SCH (09:18)
[2025-02-15 11:09] VITALS: BP 108/71; PULSE 73; RESP 21; TEMP 98.1; O2SAT 99
--- NOTE | 2025-02-15 13:14 | Discharge Summary ---
Discharge Summary Date of Service February 15, 2025 Principal Dx & Hospital Course #1 = Principal Diagnosis (1) Acute kidney injury superimposed on stage 3a chronic kidney disease: (2) Orthostatic hypotension: (3) Hypotension: (4) Avascular necrosis of bone of hip: (5) Right hip pain: (6) NSVT (nonsustained ventricular tachycardia): (7) Alcoholic cirrhosis of liver: (8) Type 2 diabetes mellitus: Plan Patient is 59-year-old man with PMH alcoholic cirrhosis, thrombocytopenia, DM II, CKD III, chronic hyponatremia, orthostasis on midodrine, NSVT, congenital cataracts, bilateral hearing loss, and others listed below presented to ER with complaint of right hip pain. Right Hip Pain Avascular Necrosis, R Hip XRAY hip unremarkable CT abd/pelvis noting AVN R hip Orthopedics consulted, appreciate recs. Recommended/stated the following: "...At this time, no urgent intervention indicated. This is something that he can see as an outpatient with a joint reconstruction orthopedic provider. Would recommend pain control. He may be weightbearing as tolerated in the right hip but would probably benefit from some type of DME device to assist with ambulation. I did explain to the patient that outpatient management after his discharge from the hospital would be beneficial for him. He may follow-up with [facility] orthopedics or any other orthopedic group that he would like..." Pain control prn Follow up with pcp and orthopedics as indicated above after discharge. Persistent hypotension likely from hypovolemia Required pressor support temporarily in the ICU Held home diuretics, resumed on discharge per Nephrology titrated midodrine as needed, discharged on home dose per nephrology On steroids for possible adrenal insufficiency component- being weaned. Discharged with medrol dose eric. Was on very gentle IV fluids BP improved and was 108/71 on discharge with HR 73. Acute Kidney Injury on CKD Cr 3.7 on admission secondary to illness (baseline creatinine up to 1.8 as per outpatient Nephrology records) History hypotension on midodrine, possible underlying DM autonomic neuropathy, ? Midodrine noncompliance Monitored creatinine response to IVF, held home diuretics until creatinine back to baseline Nephrology consulted, appreciate recs. Gave the following discharge recs: "...NEPH D/C RECS DX: prerenal stage 2 CEE on CKD3 in pt w/ labile renal function RX: -resume prior to admission midodrine, potassium, spironolactone -lower torsemide dose to 20 mg daily from bid OTHER F/U CARE: -BMP w/ mag weekly x 3 to be ordered by neph nurse under Dr Lucas F/U APPT: -hospital d/c appt w/ Dr Lucas 3 wks after hosp d/c..." Close pcp and Nephrology followup after discharge Possible Cellulitis Lower extremity picking Blood Cx NGTD On empiric Unasyn, discharged with 7 days of Augmentin and renewed probiotic. Chronic Medical Problems: History PSVT Alcohol cirrhosis, no overt decompensation, AWSS at risk protocol, DT precautions DM2, insulin requiring, suboptimal control as of recent hemoglobin A1c of 10 from November 2024, ISS BG goal 140-180 at the ICU, carb count coverage Intellectual impairment/anoxic brain injury as per records Recurrent admissions, likely functional disability, patient has poor insight on medical issues as per provider notes. Notes For Next Care Provider NEPH D/C RECS DX: prerenal stage 2 CEE on CKD3 in pt w/ labile renal function RX: -resume prior to admission midodrine, potassium, spironolactone -lower torsemide dose to 20 mg daily from bid OTHER F/U CARE: -BMP w/ mag weekly x 3 to be ordered by neph nurse under Dr Lucas F/U APPT: -hospital d/c appt w/ Dr Lucas 3 wks after hosp d/c Medication Changes From Visit Per Nephro: decrease torsemide to 20m daily Medrol dose eric taper Augmentin with probiotic Admission HPI Per Admitting Provider Patient is 59-year-old man with PMH alcoholic cirrhosis, thrombocytopenia, DM II, CKD III, chronic hyponatremia, orthostasis on midodrine, NSVT, congenital cataracts, bilateral hearing loss, and others listed below presented to ER with complaint of right hip pain. Per inpatient chart review patient with history recurrent hospitalizations past couple of months. November 2024 hospitalization for metabolic encephalopathy, staph hominis bacteremia, CEE. 12/16/24- acute hepatic encephalopathy, CEE on CKD III due to obstructive uropathy in setting of BPH. 12/27/2024-01/01/2025 metabolic encephalopathy secondary to cirrhosis and complicated UTI. 02/04/2025 nephrology appointment and had noted low blood pressure with orthostasis and midodrine increased to 5 mg 3 times a day and torsemide lowered to 20 mg twice daily. His KCl supplement decreased to 20 mEq daily from 40 twice daily secondary to K: 5.2. Spironolactone was continued and magnesium supplement was continued. Patient poor historian and difficult to determine how long having right hip pain but states past couple of days right hip pain, worse with ambulating and feels having trouble walking secondary to pain. Denies fall. Denies known injury. Denies right leg pain or back pain or paresthesias. He feels his legs are swollen. Patient feels he is urinating and emptying bladder and denies dysuria. Reports drinks 2-4 beer daily. States last drank this morning and drank 1.5 cans beer. He denies any other complaint currently. Denies known fever, N/V/D/C, WITT, dizziness, syncope, CP, SOB, palpitations, cough, rhinorrhea, abdominal pain. Outpatient chart review. 02/04/25 K: 5.2, Cr: 1.8, Hgb: 11.7 Admission Exam Per Admitting Provider General: no acute distress lying in bed, Chronic ill appearing elderly male Head: normocephalic, atraumatic Eyes: +cataract bilaterally, conjunctiva non-injected, anicteric ENT: +hard of hearing, +hearing aids in place, normal inspection external ears, nose, mucous membranes moist Neck: supple, trachea midline Lungs: clear, no respiratory distress, no wheezing/rhonchi/rales CV: RRR, 1+ pretibial edema Abd: normal BS, soft, non-tender Ext: no cyanosis, no calf tenderness Neuro: A&O x 3, no focal deficits noted, normal affect Skin: warm, dry, bilateral anterior lower legs with multiple scabs Discharge Exam General: Alert. No acute distress Neuro: [place]-[employer]-W[employer] BAND HEENT: NC/AT CV: RRR Resp: Breath sounds decreased bilaterally, no increased effort of breathing Abdomen: Soft, nontender Extremities: No edema in lower extremities bilaterally. Updated Medication List Medication Instructions Recorded Confirmed Type aspirin 81 mg tablet,delayed 81 mg PO DAILY 04/04/21 02/12/25 History release albuterol sulfate 90 mcg/actuation 2 puff inhalation Q4H PRN 11/20/24 02/12/25 History aerosol inhaler SOB/Wheezing folic acid 1 mg tablet 1 mg PO QAM #30 tabs 12/03/24 02/12/25 Rx magnesium chloride 64 mg 128 mg (2 x 64 mg) PO BID #60 tabs 12/03/24 02/12/25 Rx (magnesium chloride) tablet,delayed release (Mag 64) thiamine HCl (vitamin B1) 100 mg 100 mg PO DAILY #30 tabs 12/03/24 02/12/25 Rx tablet white petrolatum-mineral oil 1 applic EXT BID #454 grams 12/03/24 02/12/25 Rx topical cream (Dermacerin topical cream) blood sugar diagnostic (OneTouch #100 ea 12/18/24 02/12/25 Rx Ultra Test strips) blood-glucose meter #1 ea 12/18/24 02/12/25 Rx blood-glucose sensor (FreeStyle #2 ea 12/18/24 02/12/25 Rx Rj 3 Plus Sensor device) insulin glargine 100 unit/mL 10 unit (0.1 mL) SC BID 30 days 12/18/24 02/12/25 Rx subcutaneous solution (Lantus #10 mL U-100 Insulin) lancets 30 gauge (Onetouch Delica #200 ea 12/18/24 02/12/25 Rx Safety Lancet) pen needle, diabetic 32 gauge x #100 ea 12/18/24 02/12/25 Rx 5/32" rifaximin 550 mg tablet (Xifaxan) 550 mg PO BID #60 tabs 12/18/24 02/12/25 Rx magnesium oxide 400 mg (241.3 mg 400 mg PO BID #60 tabs 01/01/25 02/12/25 Rx magnesium) tablet blood sugar diagnostic (OneTouch 02/12/25 02/12/25 History Ultra Test strips) lactulose 10 gram/15 mL oral 30 g PO TID 02/12/25 02/12/25 History solution midodrine 5 mg tablet 5 mg PO TID 02/12/25 02/12/25 History pantoprazole 40 mg tablet,delayed 40 mg PO QAM 02/12/25 02/12/25 History release potassium chloride 20 mEq 20 meq PO DAILY 02/12/25 02/12/25 History tablet,extended release(part/cryst) spironolactone 25 mg tablet 25 mg PO DAILY 02/12/25 02/12/25 History L.acidop,casei,lactis,rham-B.lact,sudhir 1 cap PO DAILY #30 caps 02/15/25 Rx 625 mg (10 billion cell) capsule (Advanced Probiotic) amoxicillin 875 mg-potassium 1 tab PO BID #14 tabs 02/15/25 Rx clavulanate 125 mg tablet methylprednisolone 4 mg tablets in See Rx Instructions .Route 02/15/25 Rx a dose pack (Medrol (Eric)) .COMPLEX #21 ea torsemide 20 mg tablet 20 mg PO DAILY #0 tabs 02/15/25 02/12/25 Rx Hospital Stay Data Consultations 02/12/25 19:46 ED Decision to Admit Stat 02/12/25 21:00 Consult Orthopedic Surgery Routine 02/12/25 21:21 Consult Proposal Coordinator Routine 02/13/25 04:23 Consult Nephrology Routine Diagnostic Imagining Performed 02/12/25 17:41 CT abd pelvis wo con Stat 02/12/25 17:46 CT chest diagnostic wo con Urgent Hip/Pelvis X-Ray 02/12/25 17:28 Clinical History: Pain. 4 views of the pelvis and right hip are submitted for review. Findings: No fracture or dislocation is seen. No significant arthritic changes are noted. No other osseous abnormality is identified. There are no radiopaque foreign bodies. Impression: Unremarkable radiographs of the pelvis and right hip Electronically signed by Demarco Bolton 02-12-2025 6:29 PM Abdomen/Pelvis CT 02/12/25 17:41 EXAMINATION: CT of the chest, abdomen and pelvis performed without the administration of IV contrast TECHNIQUE: Helical CT images from the lung apices through the symphysis pubis were obtained without contrast. Coronal and sagittal reformatted images were generated at a workstation for further assessment. Dose reduction techniques were achieved by using automatic exposure control and/or adjustment of mA and/or kV according to patient size and/or use of iterative reconstruction technique. COMPARISON: None HISTORY: Pain FINDINGS: Lines and tubes: None Mediastinum/Neck Base: No thyroid nodules. Central tracheobronchial tree is patent. Heart size is normal. No pericardial effusion. Normal thoracic vasculature. Aortic valve calcification. No thoracic lymphadenopathy. Lungs: No consolidation. No pleural effusion or pneumothorax. Liver: Cirrhotic morphology. no suspicious liver lesions. Gallbladder: No gallstones. No evidence of acute cholecystitis. Spleen: Normal size. Pancreas: No suspicious pancreatic lesions. The pancreatic duct is not dilated. Adrenal glands: No adrenal nodules. Kidneys: No hydronephrosis or obstructing renal stones. Atrophic appearance of the right kidney. Bladder / Pelvic organs: Unremarkable. Bowel: No bowel obstruction. No abnormal bowel wall thickening. The appendix is unremarkable. Lymph nodes: No retroperitoneal, mesenteric, or pelvic lymphadenopathy. Peritoneum / Retroperitoneum: No free fluid or air within the abdomen. Vessels: No infrarenal aortic aneurysm. Bones and soft tissues: Degenerative changes of the spine. No acute osseous normality. Avascular necrosis of the right femoral head. IMPRESSION: No acute finding in the chest, abdomen or pelvis. There is avascular necrosis of the right femoral head without subchondral collapse. The lungs are clear. Electronically signed by Casey Sutherland 02-12-2025 6:[address] 02/12/25 17:46 EXAMINATION: CT of the chest, abdomen and pelvis performed without the administration of IV contrast TECHNIQUE: Helical CT images from the lung apices through the symphysis pubis were obtained without contrast. Coronal and sagittal reformatted images were generated at a workstation for further assessment. Dose reduction techniques were achieved by using automatic exposure control and/or adjustment of mA and/or kV according to patient size and/or use of iterative reconstruction technique. COMPARISON: None HISTORY: Pain FINDINGS: Lines and tubes: None Mediastinum/Neck Base: No thyroid nodules. Central tracheobronchial tree is patent. Heart size is normal. No pericardial effusion. Normal thoracic vasculature. Aortic valve calcification. No thoracic lymphadenopathy. Lungs: No consolidation. No pleural effusion or pneumothorax. Liver: Cirrhotic morphology. no suspicious liver lesions. Gallbladder: No gallstones. No evidence of acute cholecystitis. Spleen: Normal size. Pancreas: No suspicious pancreatic lesions. The pancreatic duct is not dilated. Adrenal glands: No adrenal nodules. Kidneys: No hydronephrosis or obstructing renal stones. Atrophic appearance of the right kidney. Bladder / Pelvic organs: Unremarkable. Bowel: No bowel obstruction. No abnormal bowel wall thickening. The appendix is unremarkable. Lymph nodes: No retroperitoneal, mesenteric, or pelvic lymphadenopathy. Peritoneum / Retroperitoneum: No free fluid or air within the abdomen. Vessels: No infrarenal aortic aneurysm. Bones and soft tissues: Degenerative changes of the spine. No acute osseous normality. Avascular necrosis of the right femoral head. IMPRESSION: No acute finding in the chest, abdomen or pelvis. There is avascular necrosis of the right femoral head without subchondral collapse. The lungs are clear. Electronically signed by Casey Sutherland 02-12-2025 6:14 PM Pending Results Patient Have Any Pending Studies at Discharge: No Discharge Instructions Given to Patient (Per Discharging Provider) El, You stated that you were leaving today. It was recommended that you go to acute rehab but you have declined that option and assistance. As such you are being discharged home per your request. Please continue with as needed over the counter medication for your pain. Per the typing checker, you should continue with your home doses of midodrine, potassium and spironolactone. They decreased your torsemide dose to 20mg daily. Please continue with the steroid dose pack prescribed. Be sure to take your diabetes medications as prescribed while on the steroids as it can make your glucose levels high. Please continue with the antibiotic prescribed, Augmentin for an additional 7 days for the leg wound. Please take the probiotic that was renewed for you while on the antibiotics. Continue with the steroid taper prescribed as well. Please keep close follow up with your primary care provider after discharge. Please do not hesitate to come back to the emergency room if your symptoms worsen or return. It was a pleasure taking care of you while you were here. Total Time Total Time Spent Total Time Spent (In Minutes): 60
--- NOTE | 2025-02-18 10:23 | Electrocardiogram Report ---
Test Reason : Blood Pressure : */* mmHG Vent. Rate : 76 BPM Atrial Rate : 76 BPM P-R Int : 142 ms QRS Dur : 76 ms QT Int : 420 ms P-R-T Axes : 18 11 38 degrees QTcB Int : 472 ms Normal sinus rhythm Septal infarct (cited on or before 09-Jun-2022) Abnormal ECG When compared with ECG of 29-Dec-2024 21:25, Vent. rate has decreased by 91 bpm QRS duration has decreased Questionable change in initial forces of Anterior leads Non-specific change in ST segment in Lateral leads Confirmed by Nigel Birch ([id number]) on 02/18/2025 10:23:10 AM Referred By: REFERRED SELF Confirmed By: Nigel Birch
== END 2025-02-15 13:53 | disposition home or self-care (01) | DRG 872 ==
LOC: ED 17:03 → 1E 20:44 → 2S 02-13 17:38